=== PATIENT | female | born 1940 | race Caucasian/White ===

== ENCOUNTER 2017-07-15 22:17 | Inpatient (IN) | payer MEDICARE, SELFPAY ==
[2017-07-15 22:18] VITALS: BP 147/89; PULSE 97; RESP 14; TEMP 37.2; O2SAT 93; BMI 26.4
--- NOTE | 2017-07-15 23:00 | CT_ITS ---
STUDY: CT ABDOMEN AND PELVIS WITHOUT CONTRAST REASON FOR EXAM: Female, 77 years old. Abdomen pain, shingles, shortness of breath hypertension RADIATION DOSAGE (If Supplied By Facility): CTDIvol = ( 17.82 ) mGy, DLP = ( 899.46 ) mGycm TECHNIQUE: Transaxial images were obtained from the dome of the diaphragm to the symphysis pubis without oral contrast, and without intravenous contrast. Sagittal and coronal images were reconstructed. Individualized dose optimization techniques were used for this CT. COMPARISON: CT scan abdomen and pelvis June 25, 2014 FINDINGS: There are persistent bilateral [id number] pleural effusions with lower lobe atelectasis. There is severe enlargement of the heart especially the left atrium. Sternotomy wires are seen midline. This is similar to prior study. There is a mildly lobulated enlarged appearance of the liver. There is at least a single 4 mm stone in the left kidney similar to prior study. Normal spleen. Normal pancreas. Normal bilateral adrenal glands. The right kidney is somewhat anteriorly rotated stable since prior study. There are right renal vascular calcifications. There is no evidence of hydronephrosis. Normal left kidney. The stomach is distended. There mildly distended loops of small bowel. There are numerous diverticula present within the colon without evidence of diverticulitis. There is ascites which is protruding into the anterior abdomen at a diastases of the rectus muscle. This is similar to the prior study. There is non-visualization of the appendix. The aorta tortuous and partially calcified. Normal inferior vena cava. Normal retroperitoneum. Normal urinary bladder. There is atrophy of the uterus. There are visualized calcifications involving the gonadal vein. There is a protrusive bulbous appearance of the abdominal wall. This is a result of the ascites extending into diastases of the rectus muscle. There is free fluid in the pelvis and in the abdomen. There is peripheral soft tissue edema and third spacing. The bones are osteopenic and degenerative. CT/Abdomen/Pelvis without Cont IMPRESSION: Severe cardiomegaly persistent moderate bilateral effusions body anasarca ascites and a protrusive appearance of the abdomen with a diastases of the rectus muscle. Atherosclerotic disease of the aorta Diverticulosis no evidence of diverticulitis. There are stable stones involving the right renal pelvis which is thought to likely be vascular rather than part of the ureter. Electronically Signed: Zoila Marquis MD at 23:51 EDT Tel , Service support ,
--- NOTE | 2017-07-15 23:00 | EKG12_ITS ---
Test Reason : SOB Blood Pressure : / mmHG Vent. Rate : 125 BPM Atrial Rate : 119 BPM P-R Int : 000 ms QRS Dur : 104 ms QT Int : 322 ms P-R-T Axes : 000 049 087 degrees QTc Int : 464 ms Accelerated Junctional rhythm with occasional Premature ventricular complexes Low voltage QRS Septal infarct , age undetermined Abnormal ECG Confirmed by SHEKHAR HIGUERA, MANOLO ([id number]), magazine editor MILI MCMAHAN ([id number]) on 07/18/2017 11:28:20 AM Referred By: TANYA Confirmed By:MANOLO CORRIGAN MD
--- NOTE | 2017-07-15 23:05 | ED.DCSUM_ITS ---
- ER Visit Summary Date of Service: 07/15/17 Chief Complaint: Abdominal pain, bloating, shortness of breath History of Present Illness: The patient is a 77 F with abdominal pain, bloating , and shortness of breath. Symptoms started gradually yesterday and were worse today. She has a history of CHF and normally takes Lasix, 40 mg twice a day. She says that she has not been taking it because her kidneys are not working very good. She denies chest pain. Denies cough or fevers. Denies trouble urinating or with bowel movements. Denies vomiting. She has a history of coronary disease, CHF, hypertension, high cholesterol, diabetes, cirrhosis, A. fib, cardiomyopathy, anxiety and depression, and mitral and tricuspid valve replacement. She takes Coumadin. Physical Examination: Vital signs unremarkable. Afebrile. Head and neck atraumatic. Heart irregular. Lungs clear but diminished throughout. Abdomen bloated and distended. Nontender. No guarding rebound. Lower extremities show 1+ peripheral edema symmetric, calves nontender. Skin normal in color. Test Results: EKG, chest x-ray, abdomen CT, labs pending at the time of this dictation. Emergency Department Course and Treatment: Symptoms were concerning for CHF. Patient was placed on a monitor and workup was initiated. Shortly after I saw the patient, staff informed me that the patient was having trouble breathing. Patient was cyanotic and had increased work of breathing. She told me she felt like she was going to stop breathing. Her oxygen saturations were okay, but I was concerned for her anticipated clinical course and so she was intubated. Treated with etomidate and succinylcholine. 7.0 tube passed through cords with direct visualization. Good color change. Equal breath sounds. Good chest rise. Quiet stomach. Patient was placed on the vent. Sedated with propofol. ABG pending. Platelets 468 otherwise CBC normal. CMP unremarkable. INR subtherapeutic at 1.6. BNP 445. Troponin normal. EKG shows a junctional rhythm at a rate of 125. Chest x-ray showed cardiomegaly and large bilateral effusions. CT abdomen showed ascites and anasarca, also with cardiomegaly and bilateral effusions. She also had another noncontributory incidental findings. Please see separate report. Patient treated with Nitropaste and Lasix. Patient is improved on the ventilator. Sedated. ICU and hospitalist contacted for admission. Treatment Plan: Above Disposition: Admission Impression: 1. Acute respiratory failure 2. CHF This note was generated with [employer] dictation software. It may contain incorrect words, spelling, and punctuation that were not noted in review of the chart prior to signing ED Disposition - Plan for ED Patient: Chief Complaint: Abd Pain Referrals: Warren Mendoza MD [Primary Care Provider] -
[2017-07-15 23:12] VITALS: O2SAT 97
--- NOTE | 2017-07-15 23:25 | RAD_ITS ---
STUDY: X-RAY CHEST REASON FOR EXAM: Female, 77 years old. Shortness of breath TECHNIQUE: Single AP portable view of the chest. COMPARISON: Similar 22,016 chest x-ray FINDINGS: There is worsening opacification of the right lung with a large right effusion and atelectasis and/or consolidation. There is worsening of the opacification of the left lower lobe. There is severe cardiomegaly visualized cardiac valvular ring. Sternotomy wires are seen midline. There is an overall pattern of increased interstitial markings. Normal mediastinum and alona. Normal visualized pulmonary arteries. There is atherosclerotic tortuosity of the aortic arch and descending thoracic aorta. There are diffuse degenerative changes of the visualized thoracic spine. Normal visualized ribs, clavicles, and shoulders. There is no demonstrated abnormality of the visualized soft tissue structures of the upper abdomen. RAD/Chest 1 View (Portable) IMPRESSION: Large worsening bilateral effusions atelectasis consider CHF. Cardiomegaly cardiac valvular ring. Electronically Signed: Zoila Marquis MD at 23:59 EDT Tel , Service support ,
[2017-07-15 23:29] LABS: International Normalized Ratio 1.6; Prothrombin Time (Protime)PT. 19.3 SECONDS (11.7-14.9)
[2017-07-15 23:36] LABS: Absolute Lymphocyte Count 0.71 X10^3/ul (0.83-4.51); Absolute Neutrophil Count 6.7 X10^3/uL (2.0-7.7); Basophil# 0.03 X10^3/uL; Basophil% 0.4 % (0-1); Eosinophil# 0.06 X10^3/uL; Eosinophils% 0.7 % (0-5); Hematocrit 44.1 % (37-47); Hemoglobin 14.5 g/dl (12.0-15.0); Lymphocyte # 0.71 X10^3/ul (4.0); Lymphocyte % 8.5 % (19-41); Mean Corp Hgb Conc 32.9 g/gl (32-36); Mean Corpuscular Hgb 31.4 pg (27.0-32.0); Mean Corpuscular Volume 95.5 fL (81-99); Mean Platelet Vol. 9.3 fl (6.2-12.0); Monocyte# 0.82 X10^3/uL; Monocyte% 9.8 % (0-10); Neutrophil # 6.73 X10^3/uL (2.7-7.7); Neutrophil % 80.4 % (47-70); Platelet Count 468 K/mm3 (150-450); RBC Distribution Width SD 50.7 fl (35.1-43.9); Red Blood Count 4.62 M/mm3 (4.2-5.4); White Blood Count 8.4 K/mm3 (4.4-11.0)
[2017-07-15 23:40] VITALS: BP 194/96; PULSE 114
[2017-07-15] MEDS: Nitroglycerin Oint 1 INCH PACKET TRANSDERM. (23:40)
[2017-07-15 23:41] LABS: POSITIVE COUNT NO; POSITIVE DIFFERENTIAL NO; POSITIVE MORPHOLOGY NO
[2017-07-15 23:43] LABS: ALB/GLOB Ratio 0.6 RATIO (0.9-2.4); AST(SGOT) 35 U/L (15-37); Alanine Aminotransfer ALT/SGPT 18 U/L (13-56); Alkaline Phosphatase 58 U/L (45-117); Anion Gap 8 (5-15); BUN 18 mg/dL (7-18); BUN/Creat Ratio 27.4 RATIO (10-20); Chloride 105 mmol/L (98-107); Creatinine, Serum 0.66 mg/dL (0.55-1.02); EST Glomerular Filtration Rate 92 mL/min (>60); Est Glom Filt Rate - Afr Amer 111 mL/min (>60); Estimated Creatinine Clearance 34.42 ml/min; Globulin 3.4 g/dL (2.2-4.2); Glucose 129 mg/dL (74-106); Lipase 304 U/L (73-393); Potassium 4.9 mmol/L (3.5-5.1); Protein, Total 5.4 g/dL (6.4-8.2); Sodium Level 145 mmol/L (136-145)
[2017-07-15 23:45] VITALS: BP 194/122; PULSE 123; RESP 28; O2SAT 96
[2017-07-15 23:48] LABS: BNP,B-Type NATRIURETIC PEPTIDE 445.2 pg/mL (0-100)
[2017-07-15] MEDS: Etomidate 20 MG/10 ML Vial IV (23:57)
[2017-07-15] MEDS: Succinylcholine Chloride 200 MG/10 ML Vial 100 MG IV (23:58)
[2017-07-16] VITALS (52 sets, daily range): BP systolic 102–175; BP diastolic 47–104; PULSE 79–889; RESP 10–18; TEMP 37.2–37.8; O2SAT 97–100; BMI 27.1; BMI 27.2
[2017-07-16] MEDS: Propofol 10MG/Ml 1,000 MG/100 ML Bottle 1.905 MG CONT INF ×3 (00:06→18:25)
--- NOTE | 2017-07-16 00:11 | RAD_ITS ---
STUDY: X-RAY CHEST REASON FOR EXAM: Female, 77 years old. Endotracheal tube orogastric tube placement TECHNIQUE: Single AP portable view of the chest. COMPARISON: July 15, 2017 chest x-ray FINDINGS: An endotracheal tube is present 2.5 cm above the yomaira. An NG tube is present the tip is below the diaphragm in the stomach. Allowing for differences in technique there is some improvement in the aeration of the right lung. There is a hazy appearance of the entire right lung with opacification of the right midlung zone and right lower lobe. There is opacification of the left lower lobe. Sternal cerclage wires are present from a prior sternotomy. There is a visualized cardiac annular ring. Normal mediastinum and alona. Normal visualized pulmonary arteries. There is atherosclerotic calcification of the aortic arch with tortuosity. There are diffuse degenerative changes of the visualized thoracic spine. Normal visualized ribs, clavicles, and shoulders. There is no demonstrated abnormality of the visualized soft tissue structures of the upper abdomen. RAD/Chest 1 View (Portable) IMPRESSION: Status post intubation and NG tube lines in satisfactory position. Persistent bilateral effusions atelectasis. Electronically Signed: Zoila Marquis MD at 1:22 EDT Tel , Service support ,
[2017-07-16] MEDS: Ipratropium/Albuterol Sulfate 3 ML AMPUL.NEB INHALATION (00:15)
--- NOTE | 2017-07-16 00:29 | PCM.HP.STD ---
Problem List (1) Congestive heart failure Status: Chronic Qualifiers: Heart failure type: systolic Heart failure chronicity: chronic Qualified Code(s): I50.22 - Chronic systolic (congestive) heart failure (2) H/O mitral valve replacement with mechanical valve Status: Chronic Comment: on coumadin (3) Cirrhosis Status: Chronic Qualifiers: Hepatic cirrhosis type: unspecified hepatic cirrhosis Ascites presence: with ascites Qualified Code(s): K74.60 - Unspecified cirrhosis of liver (4) Hypertension Status: Chronic Qualifiers: Hypertension type: essential hypertension Qualified Code(s): I10 - Essential (primary) hypertension (5) GERD (gastroesophageal reflux disease) Status: Chronic Qualifiers: Esophagitis presence: esophagitis presence not specified Qualified Code(s): K21.9 - Gastro-esophageal reflux disease without esophagitis (6) Atrial fibrillation Status: Chronic Qualifiers: Atrial fibrillation type: chronic Qualified Code(s): I48.2 - Chronic atrial fibrillation (7) CAD (coronary artery disease) Status: Chronic Qualifiers: Coronary Disease-Associated Artery/Lesion type: unspecified vessel or lesion type Trib[place] vs. transplanted heart: unspecified whether [place] or transplanted heart Associated angina: angina presence unspecified Qualified Code(s): I25.10 - Atherosclerotic heart disease of [place] coronary artery without angina pectoris (8) Diabetes mellitus Status: Chronic Qualifiers: Diabetes mellitus type: type 2 Diabetes mellitus long term care social worker insulin use: without long term care social worker use Diabetes mellitus complication status: with unspecified complications Qualified Code(s): E11.8 - Type 2 diabetes mellitus with unspecified complications (9) Cardiomyopathy Status: Chronic Qualifiers: Cardiomyopathy type: unspecified Qualified Code(s): I42.9 - Cardiomyopathy, unspecified (10) H/O tricuspid valve repair Status: Chronic (11) Hyperlipidemia Status: Chronic Qualifiers: Hyperlipidemia type: unspecified Qualified Code(s): E78.5 - Hyperlipidemia, unspecified (12) Anxiety and depression Status: Chronic History of Present Illness Date of Admission: 07/16/17 Chief Complaint: Abd pain/distention, dyspnea, orthopnea, weight gain, BL LE edema The patient is a 77 y/o F w/ PMHx: 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 [place] Replacement and TV Repair w/ Severe Aortic Stenosis, CKD stage III, GERD, Anxiety and depression who presents to the [facility] ED on 07/16/17 w/ primary complaint of abdominal discomfort, distention and worsening dyspnea with orthopnea with concurrent increased fatigue, weakness with also increased BL LE edema with reported failure to take her lasix on day of presentation. She also has a recent shingles infection on the R face, primarily healed. In the ED work-up included T 98.9, HR 97-->114, BP 147/89, RR14, 93% on RA, CBC w/ WBC 8.4, Hgb 14.5, Plts 468, INR 1.6, glucose 129, BNP 445.2, trop 0.06, CXR with worsening BL effusions, cardiomegaly, cardiac valvular ring, CT A/P w/ severe cardiomegaly persistent with moderate bilateral effusions with body anasarca, ascites and a protrusion appearance of the abdomen with the diastases of the rectus muscle. In the ED patient administered lasix, nitrobid, duoneb. Patient status did not improve and she became cyanotic with increased RR therefore she was intubated w/ administration succ, etomidate and started on propofol drip. Past Medical History Past Medical History (Chronic Problems): Chronic Problems Congestive heart failure (Chronic) H/O mitral valve replacement with mechanical valve (Chronic) on coumadin Cirrhosis (Chronic) Hypertension (Chronic) GERD (gastroesophageal reflux disease) (Chronic) Atrial fibrillation (Chronic) CAD (coronary artery disease) (Chronic) Diabetes mellitus (Chronic) Cardiomyopathy (Chronic) H/O tricuspid valve repair (Chronic) Hyperlipidemia (Chronic) Anxiety and depression (Chronic) Allergies cortisone Allergy (Verified 07/15/17 22:23) Unknown Home Medications: Ambulatory Orders Medication Instructions Recorded Nitroglycerin [Nitrostat] 0.4 mg SUBLINGUAL Q5M PRN #25 03/28/16 tablet Potassium Chloride [K-Dur] 20 meq PO BIDCM #60 tablet 03/28/16 furosemide 40 mg tablet 80 mg PO BID #120 tab 06/12/17 Warfarin [Coumadin] 3 mg PO DAILY 07/15/17 Surgical History: - - MV Mechanical Valve [place], TV Repair, CABG, Appendectomy. 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 Denies: Chills, Fever, Weight Change HEENT: Denies: Head Aches, Sinus Congestion, Sinus Drainage Cardiovascular: Reports: Edema, Orthopnea. Denies: Chest Pain, Palpitations Respiratory: Reports: Shortness of Breath, Shortness of breath at rest, Shortness of breath upon exertion. Denies: Cough, Sputum production Gastrointestinal: Denies: Abdominal Pain, Nausea, Vomiting Genitourinary: Denies: Dysuria Musculoskeletal: Denies: Joint Pain, Joint Tenderness Skin: Reports: Skin Changes. Denies: Rash, Wounds Neurological: Denies: Numbness, Tingling, Focal weakness Psychiatric: Denies: Anxiety, Depression, Homicidal Ideations, Suicidal Ideations Hematologic/ Lymphatic: Reports: Anemia, Easy Bruising, Easy Bleeding VTE Information - Inpt Only VTE Present on Admission: No VTE Mechan Device Prophylaxis: SCD's VTE Pharm Prophylaxis ordered?: No Reason prophylaxis not ordered:: Treatment Not Indicated Subjective: Laying in the ED bed, cachetic appearing, dried facial R sided lesions s/p shingles, ill appearing, intubated now. Objective: Physical Examination: General: intubated, sedated, intermittent fighting vent, unable to discussion orientation, laying in the ED bed, cachetic appearing. Skin: normal color, turgor, no icterus, cyanosis except R face recent shingles with healed lesions, chronic venous stasis BL LE changes. HEENT: AT/NC, EOMI, PERRLA, dry MM, see skin, no carotid bruits, + notable JVD noted. Lungs: Severely coarse BL, crackles, > bases, intubated, symmetric rise, no wheezing. Heart: Tachycardic; no gallop, rub audible, s/p MVR. Abdomen: soft, NTTP, distended, hypoactive BS, difficult to assess with distention and ascites, + HM. Extremities: no cyanosis, clubbing, BL LE 1+ ankle to proximal kaur, chronic venous stasis skin changes. Neurological: intubated, sedated, intermittent fighting vent, unable to discussion orientation, laying in the ED bed, cachetic appearing, unable to assess CN, strength deferred given sedation, intubated status. Psychiatric: affect appears sedate, flat, no acute evidence of depressive or anxiety feelings. - Physical Exam Vital Signs Temp Pulse Resp BP Pulse Ox 98.9 F 114 H 14 194/96 H 97 07/15/17 22:18 07/15/17 23:40 07/15/17 22:18 07/15/17 23:40 07/15/17 23:12 Oxygen Flow Rate (L/min) 2 Oxygen Delivery Method Nasal Cannula Weight: 140 lb Body Mass Index (BMI) 26.4 Laboratory Tests Past 24 Hrs 07/15/17 07/15/17 07/15/17 23:11 23:11 23:11 WBC 8.4 RBC 4.62 Hgb 14.5 Hct 44.1 MCV 95.5 MCH 31.4 MCHC 32.9 RDW 15.0 H RDW Differential 50.7 H Plt Count 468 H MPV 9.3 Immature Gran % (Auto) 0.200 Neut % (Auto) 80.4 H Lymph % (Auto) 8.5 L [place] % (Auto) 9.8 Eos % (Auto) 0.7 Baso % (Auto) 0.4 Absolute Neuts (auto) 6.7 Absolute Lymphs (auto) 0.71 L Total Counted Not Reportable PT 19.3 H INR 1.6 Sodium 145 Potassium 4.9 Chloride 105 Carbon Dioxide 32.0 Anion Gap 8 BUN 18 Creatinine 0.66 Estim Creat Clear Calc 34.42 Est GFR (MDRD) Af Amer 111 Est GFR (MDRD) Non-Af 92 BUN/Creatinine Ratio 27.4 H Glucose 129 H Calcium 8.0 L Total Bilirubin 0.70 AST 35 ALT 18 Alkaline Phosphatase 58 Troponin I 0.06 B-Natriuretic Peptide Total Protein 5.4 L Albumin 2.0 L Globulin 3.4 Albumin/Globulin Ratio 0.6 L Lipase 304 07/15/17 23:11 WBC RBC Hgb Hct MCV MCH MCHC RDW RDW Differential Plt Count MPV Immature Gran % (Auto) Neut % (Auto) Lymph % (Auto) [place] % (Auto) Eos % (Auto) Baso % (Auto) Absolute Neuts (auto) Absolute Lymphs (auto) Total Counted PT INR Sodium Potassium Chloride Carbon Dioxide Anion Gap BUN Creatinine Estim Creat Clear Calc Est GFR (MDRD) Af Amer Est GFR (MDRD) Non-Af BUN/Creatinine Ratio Glucose Calcium Total Bilirubin AST ALT Alkaline Phosphatase Troponin I B-Natriuretic Peptide 445.2 H Total Protein Albumin Globulin Albumin/Globulin Ratio Lipase Assessment/Plan The patient is a 77 y/o F w/ PMHx: 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 [place] Replacement and TV Repair w/ Severe Aortic Stenosis, CKD stage III, GERD, Anxiety and depression who presents to the [facility] ED on 07/16/17 w/ primary complaint of abdominal discomfort, distention and worsening dyspnea with orthopnea with concurrent increased fatigue, weakness with also increased BL LE edema with reported failure to take her lasix on day of presentation. She also has a recent shingles infection on the R face, primarily healed. (1) Acute Hypoxic and Hypercarbic Respiratory Failure secondary to Acute Decompensated Systolic CHF: In the ED work-up included T 98.9, HR 97-->114, BP 147/89, RR14, 93% on RA, CBC w/ WBC 8.4, Hgb 14.5, Plts 468, INR 1.6, glucose 129, BNP 445.2, trop 0.06, CXR with worsening BL effusions, cardiomegaly, cardiac valvular ring, CT A/P w/ severe cardiomegaly persistent with moderate bilateral effusions with body anasarca, ascites and a protrusion appearance of the abdomen with the diastases of the rectus muscle. In the ED patient administered lasix, nitrobid, duoneb. Patient status did not improve and she became cyanotic with increased RR therefore she was intubated w/ administration succ, etomidate and started on propofol drip. Will admit to the ICU, maintain intubated status, obtain cardiac enzyme series, obtain serial EKGs, continue IV lasix diuresis w/ lasix drip initiation, monitor I/Os, continue medical therapy w/ coumadin w/ INR trending, subtherapeutic upon presentation, given notably elevated BP now in the ED will initiate NG drip, not on statin, BB, or ACEI, given acute presentation will hold on addition, obtain ECHO. Obtain TSH and magnesium level. Cardiology consulted, pending. PRN morphine to decrease afterload, continue oxygen supplementation, if necessary will position w/ upright position with legs off bed to decrease preload. ICU physician consulted given ICU admission, intubated status. (2) Valvular heart disease: s/p MV mechanical [place] valve replacement and TV repair w/ severe aortic stenosis, ECHO pending as noted. (3) CAD: s/p CABG, follows w/ Dr. Harrison. Will continue regimen coumadin, not on statin or BB therapy. Add once improved status. (4) Chronic atrial fibrillation: Will maintain on telemetry, obtain magnesium level, obtain ECHO, obtain TSH level, continue coumadin with INR trending. (5) Hypertension: Elevated BP, NG drip as noted, no on ACEI, BB. Continue IV lasix drip. Add regimen once appropriate, PRN hydralazine. (6) Hyperlipidemia: AM FLP, not on statin. (7) History of Cirrhosis/PEREYRA: Complicates #1, will also obtain [place] level. LFTs, bilirubin levels normal upon admission. (8) GERD: Famotidine. (9) ? Diabetes mellitus type II: Not on regimen, no recent HgBA1c but noted in history, will obtain HgbA1c, admission glucose 129, accu checks and ISS in the interim. (10) CKD stage III: Admission BUN/Cr 18/0.66, CrCl 34.42, trend given lasix usage. (11) Severe Protein-Calorie Malnutrition: Evidenced per habitus, muscle and fat loss, nutrition consulted. (12) Recent Facial Shingles: Healing, scabs present, R face. (13) DVT Prophylaxis: SCDs, coumadin w/ INR trending. (14) CODE status: Discussed CODE status at length including difference between FULL code, DNR-CCA and DNR-CC status. Following discussions about the differences in these status, requested despite presentation and underlying co-morbidities, FULL CODE status. DNR-CCA, no intubation status. Advanced Care Planning Face to Face Time: 17 minutes. Critical Care Time: 70 minutes, time from 00:20-1:30 am, were spent addressing patients acute hypoxic and hypercarbic respiratory failure, sedation, ventilation, CHF exacerbation care and treatment, review of all data in addition to discussion with family. Code Visit Procedures: [id number] Critial Care 1st Hr - [place] and [id number]
[2017-07-16] MEDS: Furosemide 100 MG/10 ML Vial 80 MG IV (00:30)
[2017-07-16 00:41] LABS: Base Excess 8 mmol/L (-2 to +2); Bicarbonate 32.4 mmol/L (22-26); Blood Gas Specimen Type ART; FI02 100; Mode A-C; O2 Delivery Device Vent; PEEP 5; PO2 324 mmHG (75-100); RR 14; SITE R Radial; SO2 100 % (95-99); Time Given 35; Total Carbon Dioxide 34 mmol/L; Vt 400; pCO2 50.1 mmHg (35-45); pH 7.42 (7.35-7.45)
--- NOTE | 2017-07-16 00:46 | HP.PCM_ITS ---
Problem List (1) Congestive heart failure Status: Chronic Qualifiers: Heart failure type: systolic Heart failure chronicity: chronic Qualified Code(s): I50.22 - Chronic systolic (congestive) heart failure (2) H/O mitral valve replacement with mechanical valve Status: Chronic Comment: on coumadin (3) Cirrhosis Status: Chronic Qualifiers: Hepatic cirrhosis type: unspecified hepatic cirrhosis Ascites presence: with ascites Qualified Code(s): K74.60 - Unspecified cirrhosis of liver (4) Hypertension Status: Chronic Qualifiers: Hypertension type: essential hypertension Qualified Code(s): I10 - Essential (primary) hypertension (5) GERD (gastroesophageal reflux disease) Status: Chronic Qualifiers: Esophagitis presence: esophagitis presence not specified Qualified Code(s) : K21.9 - Gastro-esophageal reflux disease without esophagitis (6) Atrial fibrillation Status: Chronic Qualifiers: Atrial fibrillation type: chronic Qualified Code(s): I48.2 - Chronic atrial fibrillation (7) CAD (coronary artery disease) Status: Chronic Qualifiers: Coronary Disease-Associated Artery/Lesion type: unspecified vessel or lesion type [place] vs. transplanted heart: unspecified whether [place] or transplanted heart Associated angina: angina presence unspecified Qualified Code(s): I25.10 - Atherosclerotic heart disease of [place] coronary artery without angina pectoris (8) Diabetes mellitus Status: Chronic Qualifiers: Diabetes mellitus type: type 2 Diabetes mellitus [facility] insulin use: without [facility] use Diabetes mellitus complication status: with unspecified complications Qualified Code(s): E11.8 - Type 2 diabetes mellitus with unspecified complications (9) Cardiomyopathy Status: Chronic Qualifiers: Cardiomyopathy type: unspecified Qualified Code(s): I42.9 - Cardiomyopathy , unspecified (10) H/O tricuspid valve repair Status: Chronic (11) Hyperlipidemia Status: Chronic Qualifiers: Hyperlipidemia type: unspecified Qualified Code(s): E78.5 - Hyperlipidemia , unspecified (12) Anxiety and depression Status: Chronic History of Present Illness Date of Admission: 07/16/17 Chief Complaint: Abd pain/distention, dyspnea, orthopnea, weight gain, BL LE edema The patient is a 77 y/o F w/ PMHx: 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 [place] Replacement and TV Repair w/ Severe Aortic Stenosis, CKD stage III, GERD, Anxiety and depression who presents to the [facility] ED on 07/16/17 w/ primary complaint of abdominal discomfort, distention and worsening dyspnea with orthopnea with concurrent increased fatigue, weakness with also increased BL LE edema with reported failure to take her lasix on day of presentation. She also has a recent shingles infection on the R face, primarily healed. In the ED work- up included T 98.9, HR 97-->114, BP 147/89, RR14, 93% on RA, CBC w/ WBC 8.4, Hgb 14.5, Plts 468, INR 1.6, glucose 129, BNP 445.2, trop 0.06, CXR with worsening BL effusions, cardiomegaly, cardiac valvular ring, CT A/P w/ severe cardiomegaly persistent with moderate bilateral effusions with body anasarca, ascites and a protrusion appearance of the abdomen with the diastases of the rectus muscle. In the ED patient administered lasix, nitrobid, duoneb. Patient status did not improve and she became cyanotic with increased RR therefore she was intubated w/ administration succ, etomidate and started on propofol drip. Past Medical History Past Medical History (Chronic Problems): Chronic Problems Congestive heart failure (Chronic) H/O mitral valve replacement with mechanical valve (Chronic) on coumadin Cirrhosis (Chronic) Hypertension (Chronic) GERD (gastroesophageal reflux disease) (Chronic) Atrial fibrillation (Chronic) CAD (coronary artery disease) (Chronic) Diabetes mellitus (Chronic) Cardiomyopathy (Chronic) H/O tricuspid valve repair (Chronic) Hyperlipidemia (Chronic) Anxiety and depression (Chronic) Allergies cortisone Allergy (Verified 07/15/17 22:23) Unknown Home Medications: Ambulatory Orders Medication Instructions Recorded Nitroglycerin [Nitrostat] 0.4 mg SUBLINGUAL Q5M PRN #25 03/28/16 tablet Potassium Chloride [K-Dur] 20 meq PO BIDCM #60 tablet 03/28/16 furosemide 40 mg tablet 80 mg PO BID #120 tab 06/12/17 Warfarin [Coumadin] 3 mg PO DAILY 07/15/17 Surgical History: - - MV Mechanical Valve [place], TV Repair, CABG, Appendectomy. 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 Denies: Chills, Fever, Weight Change HEENT: Denies: Head Aches, Sinus Congestion, Sinus Drainage Cardiovascular: Reports: Edema, Orthopnea. Denies: Chest Pain, Palpitations Respiratory: Reports: Shortness of Breath, Shortness of breath at rest, Shortness of breath upon exertion. Denies: Cough, Sputum production Gastrointestinal: Denies: Abdominal Pain, Nausea, Vomiting Genitourinary: Denies: Dysuria Musculoskeletal: Denies: Joint Pain, Joint Tenderness Skin: Reports: Skin Changes. Denies: Rash, Wounds Neurological: Denies: Numbness, Tingling, Focal weakness Psychiatric: Denies: Anxiety, Depression, Homicidal Ideations, Suicidal Ideations Hematologic/ Lymphatic: Reports: Anemia, Easy Bruising, Easy Bleeding VTE Information - Inpt Only VTE Present on Admission: No VTE Mechan Device Prophylaxis: SCD's VTE Pharm Prophylaxis ordered?: No Reason prophylaxis not ordered:: Treatment Not Indicated Subjective: Laying in the ED bed, cachetic appearing, dried facial R sided lesions s/p shingles, ill appearing, intubated now. Objective: Physical Examination: General: intubated, sedated, intermittent fighting vent, unable to discussion orientation, laying in the ED bed, cachetic appearing. Skin: normal color, turgor, no icterus, cyanosis except R face recent shingles with healed lesions, chronic venous stasis BL LE changes. HEENT: AT/NC, EOMI, PERRLA, dry MM, see skin, no carotid bruits, + notable JVD noted. Lungs: Severely coarse BL, crackles, > bases, intubated, symmetric rise, no wheezing. Heart: Tachycardic; no gallop, rub audible, s/p MVR. Abdomen: soft, NTTP, distended, hypoactive BS, difficult to assess with distention and ascites, + HM. Extremities: no cyanosis, clubbing, BL LE 1+ ankle to proximal kaur, chronic venous stasis skin changes. Neurological: intubated, sedated, intermittent fighting vent, unable to discussion orientation, laying in the ED bed, cachetic appearing, unable to assess CN, strength deferred given sedation, intubated status. Psychiatric: affect appears sedate, flat, no acute evidence of depressive or anxiety feelings. - Physical Exam Vital Signs Temp Pulse Resp BP Pulse Ox 98.9 F 114 H 14 194/96 H 97 07/15/17 22:18 07/15/17 23:40 07/15/17 22:18 07/15/17 23:40 07/15/17 23:12 Oxygen Flow Rate (L/min) 2 Oxygen Delivery Method Nasal Cannula Weight: 140 lb Body Mass Index (BMI) 26.4 Laboratory Tests Past 24 Hrs 07/15/17 07/15/17 07/15/17 23:11 23:11 23:11 WBC 8.4 RBC 4.62 Hgb 14.5 Hct 44.1 MCV 95.5 MCH 31.4 MCHC 32.9 RDW 15.0 H RDW Differential 50.7 H Plt Count 468 H MPV 9.3 Immature Gran % (Auto) 0.200 Neut % (Auto) 80.4 H Lymph % (Auto) 8.5 L [place] % (Auto) 9.8 Eos % (Auto) 0.7 Baso % (Auto) 0.4 Absolute Neuts (auto) 6.7 Absolute Lymphs (auto) 0.71 L Total Counted Not Reportable PT 19.3 H INR 1.6 Sodium 145 Potassium 4.9 Chloride 105 Carbon Dioxide 32.0 Anion Gap 8 BUN 18 Creatinine 0.66 Estim Creat Clear Calc 34.42 Est GFR (MDRD) Af Amer 111 Est GFR (MDRD) Non-Af 92 BUN/Creatinine Ratio 27.4 H Glucose 129 H Calcium 8.0 L Total Bilirubin 0.70 AST 35 ALT 18 Alkaline Phosphatase 58 Troponin I 0.06 B-Natriuretic Peptide Total Protein 5.4 L Albumin 2.0 L Globulin 3.4 Albumin/Globulin Ratio 0.6 L Lipase 304 07/15/17 23:11 WBC RBC Hgb Hct MCV MCH MCHC RDW RDW Differential Plt Count MPV Immature Gran % (Auto) Neut % (Auto) Lymph % (Auto) Caswell % (Auto) Eos % (Auto) Baso % (Auto) Absolute Neuts (auto) Absolute Lymphs (auto) Total Counted PT INR Sodium Potassium Chloride Carbon Dioxide Anion Gap BUN Creatinine Estim Creat Clear Calc Est GFR (MDRD) Af Amer Est GFR (MDRD) Non-Af BUN/Creatinine Ratio Glucose Calcium Total Bilirubin AST ALT Alkaline Phosphatase Troponin I B-Natriuretic Peptide 445.2 H Total Protein Albumin Globulin Albumin/Globulin Ratio Lipase Assessment/Plan The patient is a 77 y/o F w/ PMHx: CVA without deficits, Chronic Systolic CHF w / Non-ischemic Cardiomyopathy, Chronic Atrial fibrillation, Hypertension, Hyperlipidemia, Unclear Cirrhosis/?PEREYRA, CAD s/p CABG and MV Mechanical [place] [place] Replacement and TV Repair w/ Severe Aortic Stenosis, CKD stage III, GERD, Anxiety and depression who presents to the [facility] ED on 07/16/17 w/ primary complaint of abdominal discomfort, distention and worsening dyspnea with orthopnea with concurrent increased fatigue, weakness with also increased BL LE edema with reported failure to take her lasix on day of presentation. She also has a recent shingles infection on the R face, primarily healed. (1) Acute Hypoxic and Hypercarbic Respiratory Failure secondary to Acute Decompensated Systolic CHF: In the ED work-up included T 98.9, HR 97-->114, BP 147/89, RR14, 93% on RA, CBC w/ WBC 8.4, Hgb 14.5, Plts 468, INR 1.6, glucose 129, BNP 445.2, trop 0.06, CXR with worsening BL effusions, cardiomegaly, cardiac valvular ring, CT A/P w/ severe cardiomegaly persistent with moderate bilateral effusions with body anasarca, ascites and a protrusion appearance of the abdomen with the diastases of the rectus muscle. In the ED patient administered lasix, nitrobid, duoneb. Patient status did not improve and she became cyanotic with increased RR therefore she was intubated w/ administration succ, etomidate and started on propofol drip. Will admit to the ICU, maintain intubated status, obtain cardiac enzyme series, obtain serial EKGs, continue IV lasix diuresis w/ lasix drip initiation, monitor I/Os, continue medical therapy w/ coumadin w/ INR trending, subtherapeutic upon presentation, given notably elevated BP now in the ED will initiate NG drip, not on statin, BB, or ACEI, given acute presentation will hold on addition, obtain ECHO. Obtain TSH and magnesium level. Cardiology consulted, pending. PRN morphine to decrease afterload, continue oxygen supplementation, if necessary will position w/ upright position with legs off bed to decrease preload. ICU physician consulted given ICU admission, intubated status. (2) Valvular heart disease: s/p MV mechanical [place] valve replacement and TV repair w/ severe aortic stenosis, ECHO pending as noted. (3) CAD: s/p CABG, follows w/ Dr. Harrison. Will continue regimen coumadin, not on statin or BB therapy. Add once improved status. (4) Chronic atrial fibrillation: Will maintain on telemetry, obtain magnesium level, obtain ECHO, obtain TSH level, continue coumadin with INR trending. (5) Hypertension: Elevated BP, NG drip as noted, no on ACEI, BB. Continue IV lasix drip. Add regimen once appropriate, PRN hydralazine. (6) Hyperlipidemia: AM FLP, not on statin. (7) History of Cirrhosis/PEREYRA: Complicates #1, will also obtain NH level. LFTs, bilirubin levels normal upon admission. (8) GERD: Famotidine. (9) ? Diabetes mellitus type II: Not on regimen, no recent HgBA1c but noted in history, will obtain HgbA1c, admission glucose 129, accu checks and ISS in the interim. (10) CKD stage III: Admission BUN/Cr 18/0.66, CrCl 34.42, trend given lasix usage. (11) Severe Protein-Calorie Malnutrition: Evidenced per habitus, muscle and fat loss, nutrition consulted. (12) Recent Facial Shingles: Healing, scabs present, R face. (13) DVT Prophylaxis: SCDs, coumadin w/ INR trending. (14) CODE status: Discussed CODE status at length including difference between FULL code, DNR-CCA and DNR-CC status. Following discussions about the differences in these status, requested despite presentation and underlying co- morbidities, FULL CODE status. DNR-CCA, no intubation status. Advanced Care Planning Face to Face Time: 17 minutes. Critical Care Time: 70 minutes, time from 00:20-1:30 am, were spent addressing patients acute hypoxic and hypercarbic respiratory failure, sedation, ventilation, CHF exacerbation care and treatment, review of all data in addition to discussion with family. Code Visit Procedures: [id number] Critial Care 1st Hr - [place] and [id number]
[2017-07-16 02:20] LABS: Magnesium 2.5 mg/dL (1.6-2.6); Phosphorus 3.1 mg/dL (2.5-4.9); Thyroid Stim Hormone (TSH) 7.36 uIU/mL (0.358-3.74)
[2017-07-16] MEDS: 0.9% NaCl Peripheral Flush Adult/Peds IV ×7 (02:49→23:04)
[2017-07-16] MEDS: Albuterol 2.5 MG/3 ML VIAL.NEB. INHALATION ×6 (03:30→22:28)
[2017-07-16 03:46] LABS: M R Staph aureus DNA By PCR Negative (Negative); Probe Check PASS; Specimen Processing Control PASS
[2017-07-16] MEDS: CHLORHEXIDINE GLUC 2% CLOTH 1 EACH TOWELETTE TOPICAL (04:28)
[2017-07-16 05:01] LABS: Allen Test POS; Base Excess 10 mmol/L (-2 to +2); Bicarbonate 31.5 mmol/L (22-26); Blood Gas Specimen Type ART; FI02 60; Mode A-C; O2 Delivery Device Vent; PEEP 5; PO2 103 mmHG (75-100); RR 16; SITE L Radial; SO2 99 % (95-99); Time Given 450; Total Carbon Dioxide 32 mmol/L; Vt 400; pCO2 32.5 mmHg (35-45); pH 7.59 (7.35-7.45)
--- NOTE | 2017-07-16 05:55 | RAD_ITS ---
STUDY: X-RAY CHEST REASON FOR EXAM: Female, 77 years old. Intubated. TECHNIQUE: AP portable chest. COMPARISON: July 16, 2017 12:25 AM. July 15, 2017. FINDINGS: Endotracheal tube tip 1.5 cm above the yomaira. Nasogastric tube tip below the left hemidiaphragm. Small bilateral pleural effusions unchanged. Perihilar airspace opacity compatible with vascular congestion not significantly changed. No pneumothorax. Mild to moderate cardiomegaly unchanged. Mitral valvuloplasty. Normal mediastinum and alona. Normal visualized pulmonary arteries. Normal visualized aortic arch and descending thoracic aorta. Wires are present. Normal visualized thoracic spine. Normal visualized ribs, clavicles, and shoulders. There is no demonstrated abnormality of the visualized soft tissue structures of the upper abdomen. RAD/Chest 1 View (Portable) IMPRESSION: Consider congestive heart failure unchanged. Support lines and tubes in their expected locations. Endotracheal tube tip 1.5 cm above the yomaira with the chin down. Electronically Signed: Frederick Suarez MD at 5:18 EDT , Service support ,
--- NOTE | 2017-07-16 05:55 | EKG12_ITS ---
Test Reason : AM EKG Blood Pressure : / mmHG Vent. Rate : 083 BPM Atrial Rate : 078 BPM P-R Int : 000 ms QRS Dur : 126 ms QT Int : 420 ms P-R-T Axes : 000 013 135 degrees QTc Int : 493 ms Atrial fibrillation Non-specific intra-ventricular conduction block Abnormal ECG When compared with ECG of 26-MAR-2016 05:35, Wide QRS rhythm has replaced Atrial fibrillation Confirmed by SHEKHAR HIGUERA, MANOLO ([id number]), restaurant expeditor MILI MCMAHAN ([id number]) on 07/18/2017 12:50:33 PM Referred By: SHILPA Confirmed By:MANOLO CORRIGAN MD
--- NOTE | 2017-07-16 05:55 | ECHOD_ITS ---
Reason For Study: CHF Procedure This was a 2D Doppler, Color Flow transthoracic echocardiogram. Exam performed portable in ICU/CCU. Left Ventricle Severely dilated left ventricle. The estimated ejection fraction is 10-15 %. There is severe global hypokinesis of the left ventricle. Right Ventricle Normal size and thickness. Normal systolic function. Atria The left atrium is severely enlarged. The right atrium is severely enlarged. Normal atrial septum. Mitral Valve Peak transmitral valve gradient 14 mmHg. Mean transmitral valve gradient 5 mmHg. Trivial mitral valve insufficiency. Stable appearing mechanical mitral valve apparatus. Tricuspid Valve Normal tricuspid valve. Mild (1+) tricuspid valve insufficiency. Right ventricular systolic pressure estimated to be 43 mmHg. Moderate pulmonary hypertension. Aortic Valve Trisinus/trileaflet aortic valve. Mild diffuse aortic valve thickening. There is no aortic stenosis. Pulmonic Valve Normal pulmonic valve. Mild (1+) pulmonic valve insufficiency. Great Vessels Normal aortic root. Mild atherosclerosis of the aortic arch. The inferior vena cava is dilated. No collapse of the inferior vena cava. Pericardium/Pleural No pericardial effusion. Moderate size left pleural effusion. MMode/2D Measurements & Calculations LVIDd: 5.4 cm IVSd: 1.0 cm LVOT diam: 1.8 cm LVIDs: 4.8 cm LVPWd: 0.91 cm LVOT area: 2.5 cm2 RVDd: 2.6 cm FS: 10.9 % Ao root diam: 2.6 cm LAV(MOD-bp): 265.0 ml EDV(MOD-sp4): 114.8 ml LA dimension: 6.8 cm LAV(MOD-bp) Indexed: 161.8 ml/m2 ESV(MOD-sp4): 83.0 ml LAV(MOD-sp2): 283.8 ml EF(MOD-sp4): 27.7 % LAV(MOD-sp4): 241.3 ml SV(MOD-sp4): 31.7 ml LA A4 area: 52.8 cm2 RA A4 area: 31.8 cm2 Doppler Measurements & Calculations MV E max dara: 169.9 cm/sec MV V2 max: 185.1 cm/sec Ao V2 max: 237.6 cm/sec MV max P.8 mmHg Ao max P.8 mmHg MV V2 mean: 100.3 cm/sec Ao V2 mean: 170.1 cm/sec MV mean P.8 mmHg Ao mean P.8 mmHg MV V2 VTI: 31.8 cm Ao V2 VTI: 43.9 cm MVA(VTI): 1.8 cm2 RONALDO(I,D): 1.3 cm2 RONALDO(V,D): 1.5 cm2 LV V1 max: 143.2 cm/sec SV(LVOT): 57.9 ml PA V2 max: 141.0 cm/sec LV V1 max P.2 mmHg LV V1 mean P.7 mmHg LV V1 mean: 101.8 cm/sec LV V1 VTI: 23.6 cm TR max dara: 267.9 cm/sec TR max P.8 mmHg Interpretation Summary Severely dilated left ventricle. The estimated ejection fraction is 10-15 %. There is severe global hypokinesis of the left ventricle. The left atrium is severely enlarged. Stable appearing mechanical mitral valve apparatus. Mild (1+) tricuspid valve insufficiency. Right ventricular systolic pressure estimated to be 43 mmHg. Moderate pulmonary hypertension. There is no aortic stenosis. Moderate size loculated left pleural effusion. Compared to echo report dated 03/25/2016, no appreciable changes noted. Aortic gradients are most likely due to low output state; physical appearance of aortic valve does not appear to demonstrate severe aortic stenosis. Ordering Physician: Genesis Casas Referring Physician: Jeremy Mendoza Performed By: Dorota Braswell, CYNTHIA, RVT
[2017-07-16 06:10] LABS: Bedside Glucose 145 mg/dL (70-110)
--- NOTE | 2017-07-16 06:35 | CON.PCM_ITS ---
Reason for Consult Date of Consultation: 07/16/17 Reason for Consultation: Acute respiratory failure History of Present Illness: The patient is a 77-year-old female, with a history as outlined below, who presented to the emergency department on July 15 with complaints of increased abdominal girth and pain, along with worsening shortness of breath. The patient has a history significant for prior CVA without residual deficits, PEREYRA Cirrhosis, chronic systolic heart failure, status post mitral and tricuspid valve repair, severe aortic stenosis and chronic atrial fibrillation. History pertinent to her hospitalization was obtained primarily via chart review, the patient is currently intubated and sedated. The patient reportedly stopped taking her Lasix recently over concerns for her renal function. Surface echocardiogram from March 2016 revealed moderately severe global LV systolic dysfunction with an ejection fraction of 30%. Right ventricular systolic pressure was estimated to be 45 mmHg. There is also note of moderate to severe aortic valve stenosis. The patient's family states that she does not have a primary care provider and does not follow with anyone routinely for her underlying cirrhosis. On presentation to the emergency department, the patient was noted to be afebrile and hemodynamically stable. She was initially maintaining appropriate oxygen saturations on 2 L/min via nasal cannula. However, emergency department staff reported that the patient had increased work of breathing and was cyanotic in appearance, which eventually led to her intubation. Laboratory evaluation revealed no evidence for leukocytosis. INR was noted to be 1.6. Chemistry profile was largely unrevealing. BNP was elevated to 445. Initial troponin was negative, but has since climbed to 0.13. CT abdomen/pelvis revealed moderate bilateral pleural effusions, anasarca diverticulosis without evidence of inflammation. Plain film chest x-ray revealed pulmonary edema and large bilateral pleural effusions. The patient was started on both nitro and Lasix drips. She was subsequently admitted to the medical intensive care unit for ongoing management. Past Medical History Past Medical History (Chronic Problems): Chronic Problems Congestive heart failure (Chronic) H/O mitral valve replacement with mechanical valve (Chronic) on coumadin Cirrhosis (Chronic) Hypertension (Chronic) GERD (gastroesophageal reflux disease) (Chronic) Atrial fibrillation (Chronic) CAD (coronary artery disease) (Chronic) Diabetes mellitus (Chronic) Cardiomyopathy (Chronic) H/O tricuspid valve repair (Chronic) Hyperlipidemia (Chronic) Anxiety and depression (Chronic) Allergies cortisone Allergy (Verified 07/15/17 22:23) Unknown Home Medications: Ambulatory Orders Medication Instructions Recorded Nitroglycerin [Nitrostat] 0.4 mg SUBLINGUAL Q5M PRN #25 03/28/16 tablet Potassium Chloride [K-Dur] 20 meq PO BIDCM #60 tablet 03/28/16 furosemide 40 mg tablet 80 mg PO BID #120 tab 06/12/17 Warfarin [Coumadin] 3 mg PO DAILY 07/15/17 Surgical History: - - MV Mechanical Valve [facility], TV Repair, CABG, Appendectomy. 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 - Physical Exam General: - - Intubated, sedated and mechanically ventilated. HEENT: Atraumatic, PERRLA, Normocephalic Oral: No Gingival or Mucosal Lesions/ Ulcerations, - - Endotracheal and OG tubes in place Neck: Supple, No Nodes, Trachea Midline, JVD, Bilateral Lungs: Diminished, Rales Cardiovascular: Normal S1, Normal S2, Irregular Rate, Murmur, No rub noted, No Gallop Abdomen: Soft, Hypoactive Bowel Sounds, Distended, - - +Ascites Extremities: No clubbing, No cyanosis, - - Extensive bilateral lower extremity pitting edema Skin: - - Wound and sloughing skin over right frontal region Musculoskeletal: Arthritic Changes, Cachexia, Muscle Wasting, - - Temporal wasting present Lymphatic: No Cervical, Supraclavicular, or Inguinal Adenopathy Neurological: - - No focal deficits. Moves all extremities spontaneously. Vital Signs Temp Pulse Resp BP Pulse Ox 98.9 F 92 12 109/62 100 07/16/17 04:00 07/16/17 06:00 07/16/17 06:00 07/16/17 06:00 07/16/17 06:00 Oxygen Delivery Method Mechanical Ventilator Weight: 143 lb 15.39 oz Body Mass Index (BMI) 27.1 Intake and Output for Last 24 Hours 07/14/17 07/15/17 07/16/17 23:59 23:59 23:59 Intake Total 149.7 / 149.7 Output Total 350 / 350 Balance -200.3 / -200.3 Laboratory Tests Past 24 Hrs 07/16/17 07/16/17 07/16/17 01:40 02:50 04:55 WBC RBC Hgb Hct MCV MCH MCHC RDW RDW Differential Plt Count Neut % (Auto) Absolute Neuts (auto) Total Counted PT INR Specimen Type ART Sample Site L Radial pH 7.59 H Bicarbonate Actual 31.5 H POC Total CO2 32 Base Excess 10 H O2 Saturation 99 O2 % 60 ABG pCO2 32.5 L ABG pO2 103 H Leonel Test POS Respiration Rate 16 O2 Delivery Device Vent Minute Volume 6.00 Vent Mode A-C Tidal Volume 400 POC PEEP 5 Blood Gas Notified Whom [facility] Blood Gas Notified Time 450 Sodium Potassium Chloride Carbon Dioxide Anion Gap BUN Creatinine Est GFR (MDRD) Af Amer Est GFR (MDRD) Non-Af BUN/Creatinine Ratio Glucose Calcium Total Bilirubin AST ALT Alkaline Phosphatase Troponin I 0.09 H Total Protein Albumin Triglycerides Cholesterol LDL Cholesterol VLDL Cholesterol HDL Cholesterol MRSA (PCR) Negative 07/16/17 07/16/17 07/16/17 06:10 06:10 06:10 WBC Pending RBC Pending Hgb Pending Hct Pending MCV Pending MCH Pending MCHC Pending RDW Pending RDW Differential Pending Plt Count Pending Neut % (Auto) Pending Absolute Neuts (auto) Pending Total Counted Pending PT Pending INR Pending Specimen Type Sample Site pH Bicarbonate Actual POC Total CO2 Base Excess O2 Saturation O2 % ABG pCO2 ABG pO2 Leonel Test Respiration Rate O2 Delivery Device Minute Volume Vent Mode Tidal Volume POC PEEP Blood Gas Notified Whom Blood Gas Notified Time Sodium Pending Potassium Pending Chloride Pending Carbon Dioxide Pending Anion Gap Pending BUN Pending Creatinine Pending Est GFR (MDRD) Af Amer Pending Est GFR (MDRD) Non-Af Pending BUN/Creatinine Ratio Pending Glucose Pending Calcium Pending Total Bilirubin Pending AST Pending ALT Pending Alkaline Phosphatase Pending Troponin I Total Protein Pending Albumin Pending Triglycerides Pending Cholesterol Pending LDL Cholesterol Pending VLDL Cholesterol Pending HDL Cholesterol Pending MRSA (PCR) POC Glucose 07/16/17 05:53 POC Glucose 145 H Clinical Impression(s) from Imaging Studies Abdomen/Pelvis CT 07/15/17 23:00 IMPRESSION: Severe cardiomegaly persistent moderate bilateral effusions body anasarca ascites and a protrusive appearance of the abdomen with a diastases of the rectus muscle. Atherosclerotic disease of the aorta Diverticulosis no evidence of diverticulitis. There are stable stones involving the right renal pelvis which is thought to likely be vascular rather than part of the ureter. Electronically Signed: Zoila Marquis MD at 23:51 EDT Tel , Service support , Chest X-Ray 07/15/17 23:25 IMPRESSION: Large worsening bilateral effusions atelectasis consider CHF. Cardiomegaly cardiac valvular ring. Electronically Signed: Zoila Marquis MD at 23:59 EDT Tel , Service support , Chest X-Ray 07/16/17 00:11 IMPRESSION: Status post intubation and NG tube lines in satisfactory position. Persistent bilateral effusions atelectasis. Electronically Signed: Zoila Marquis MD at 1:22 EDT Tel , Service support , Assessment/Plan RECOMMENDATIONS: 1. Continue attempts at volume optimization with diuretics. 2. Given the patient's low-grade fevers, will start antibiotics. 3. Send blood, urine and sputum cultures. 4. Check MRSA screen 5. Obtain wound care consultation 6. Obtain echocardiogram and trend troponins. 7. Decreased respiratory rate and tidal volume to minimize minute ventilation, as the patient is currently being over ventilated. 8. Start tube feeds today per nutrition recommendations 9. Start heparin drip, given subtherapeutic INR 10. Continue Pepcid for GI prophylaxis IMPRESSIONS: 1. Acute respiratory failure Likely secondary to decompensated heart failure. Agree with ongoing attempts at volume optimization with IV diuretics. Diuretic goal of 1.0 L over the next 24 hours. Hold beta-lili. Wean FiO2 to maintain oxygen saturations at or above 90%. Continue current sedation regimen with a goal to maintain a RASS of -1 to 1. Plan for daily paired spontaneous awakening and breathing trials. Okay to begin tube feeds today from my perspective. 2. Decompensated heart failure/troponin elevation/atrial fibrillation/status post mitral and tricuspid valve repair/aortic stenosis Cardiology has been consulted. Continue IV Lasix infusion as ordered. Repeat surface echocardiogram is pending. Troponin elevation likely secondary to demand ischemia. We will continue to trend accordingly. The patient will be started on a heparin drip, given her subtherapeutic INR at presentation. 3. Questionable PEREYRA cirrhosis The patient's cirrhosis history is not clear. The patient reportedly does not see a dedicated liver specialist. 4. Primary respiratory alkalosis The patient was being over ventilated throughout the course of the night. Ventilator changes have been made accordingly. Recheck ABG. 5. Advanced age and deconditioning/malnutrition and cachexia Complicates care, management, recovery and prognosis. Nutrition consultation for tube feed recommendations, which can be started today. Goals of care discussion with family. TIME: 45 minutes of critical care time, independent of procedures, was spent addressing the patient's acute respiratory failure, decompensated heart failure , troponin elevation, cirrhosis, respiratory alkalosis, review of all data and collaboration with the care team. ([id number]) Code Visit 9xxxx: [id number] Critical care first hour
[2017-07-16 06:37] LABS: International Normalized Ratio 1.9; Prothrombin Time (Protime)PT. 21.5 SECONDS (11.7-14.9)
[2017-07-16 07:00] LABS: Absolute Lymphocyte Count 0.48 X10^3/ul (0.83-4.51); Absolute Neutrophil Count 8.1 X10^3/uL (2.0-7.7); Basophil# 0.02 X10^3/uL; Basophil% 0.2 % (0-1); Eosinophil# 0.01 X10^3/uL; Eosinophils% 0.1 % (0-5); Hematocrit 40.3 % (37-47); Hemoglobin 12.9 g/dl (12.0-15.0); Lymphocyte # 0.48 X10^3/ul (4.0); Mean Corpuscular Hgb 30.5 pg (27.0-32.0); Mean Corpuscular Volume 95.3 fL (81-99); Mean Platelet Vol. 9.5 fl (6.2-12.0); Monocyte# 0.93 X10^3/uL; Monocyte% 9.7 % (0-10); Neutrophil # 8.13 X10^3/uL (2.7-7.7); Neutrophil % 84.9 % (47-70); Platelet Count 347 K/mm3 (150-450); RBC Distribution Width CV 15.1 % (11.6-14.6); RBC Distribution Width SD 52.1 fl (35.1-43.9); Red Blood Count 4.23 M/mm3 (4.2-5.4); White Blood Count 9.6 K/mm3 (4.4-11.0)
[2017-07-16 07:03] LABS: Differential Indicated SCAN CRITERIA MET; POSITIVE COUNT NO; POSITIVE DIFFERENTIAL YES; POSITIVE MORPHOLOGY NO
[2017-07-16 07:04] LABS: ALB/GLOB Ratio 0.6 RATIO (0.9-2.4); AST(SGOT) 33 U/L (15-37); Alanine Aminotransfer ALT/SGPT 16 U/L (13-56); Albumin, Serum 1.7 g/dL (3.2-5.0); Alkaline Phosphatase 48 U/L (45-117); Anion Gap 8 (5-15); BUN 19 mg/dL (7-18); BUN/Creat Ratio 27.6 RATIO (10-20); Calcium,Total 7.9 mg/dL (8.5-10.1); Chloride 104 mmol/L (98-107); Cholesterol 164 mg/dL (200); Creatinine, Serum 0.69 mg/dL (0.55-1.02); EST Glomerular Filtration Rate 88 mL/min (>60); Est Glom Filt Rate - Afr Amer 106 mL/min (>60); Estimated Creatinine Clearance 34.42 ml/min; Globulin 2.8 g/dL (2.2-4.2); Glucose 127 mg/dL (74-106); High Density Lipoprotein 39 mg/dL; Potassium 4.3 mmol/L (3.5-5.1); Protein, Total 4.5 g/dL (6.4-8.2); Sodium Level 143 mmol/L (136-145); Triglycerides 168 mg/dL; Very Low Density Lipoprotein 34 mg/dL (5-40)
--- NOTE | 2017-07-16 07:43 | PCM.PN.HOSP ---
Subjective: Patient is a 77 year old lady with past medical history sent on for CAD, systolic congestive heart failure cirrhosis of the liver secondary to nonalcoholic fatty liver disease A. fib who presented with abdominal pain and bloating, progressive shortness of breath. Patient apparently desaturated while is in the emergency department was intubated and subsequently sent to the intensive care unit for further management Objective: GENERAL: Sedated on the vent HEENT: Excoriation on the scalp with areas of dry vesicles NECK; supple, normal thyroid, CHEST: Diminished to auscultation bilaterally, HEART: Regular S1 S2, no audible murmurs ABDOMEN: soft, non-tender, normoactive bowel sounds, RECTAL: deferred EXTREMITIES: No no clubbing, no cyanosis. 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 SKIN: As described above, Vitals/I&O's: Vital Signs Temp Pulse Resp BP Pulse Ox 98.9 F 92 12 109/62 100 07/16/17 04:00 07/16/17 06:00 07/16/17 06:00 07/16/17 06:00 07/16/17 06:00 Oxygen Delivery Method Mechanical Ventilator Weight: 65.3 kg Body Mass Index (BMI) 27.1 Intake and Output for Last 24 Hours 07/14/17 07/15/17 07/16/17 23:59 23:59 23:59 Intake Total 149.7 / 149.7 Output Total 350 / 350 Balance -200.3 / -200.3 Laboratory Results 07/16/17 01:40: MRSA (PCR) Negative 07/16/17 02:50: Troponin I 0.09 H 07/16/17 04:55: Specimen Type ART, Sample Site L Radial, pH 7.59 H, Bicarbonate Actual 31.5 H, POC Total CO2 32, Base Excess 10 H, O2 Saturation 99, O2 % 60, ABG pCO2 32.5 L, ABG pO2 103 H, Leonel Test POS, Respiration Rate 16, O2 Delivery Device Vent, Minute Volume 6.00, Vent Mode A-C, Tidal Volume 400, POC PEEP 5, Blood Gas Notified Whom [facility], Blood Gas Notified Time 450 07/16/17 05:53: POC Glucose 145 H 07/16/17 06:10: WBC 9.6, RBC 4.23, Hgb 12.9, Hct 40.3, MCV 95.3, MCH 30.5, MCHC 32.0, RDW 15.1 H, RDW Differential 52.1 H, Plt Count 347, MPV 9.5, Immature Gran % (Auto) 0.100, Neut % (Auto) 84.9 H, Lymph % (Auto) 5.0 L, [place] % (Auto) 9.7, Eos % (Auto) 0.1, Baso % (Auto) 0.2, Absolute Neuts (auto) 8.1 H, Absolute Lymphs (auto) 0.48 L, Total Counted Not Reportable 07/16/17 06:10: Sodium 143, Potassium 4.3, Chloride 104, Carbon Dioxide 31.0, Anion Gap 8, BUN 19 H, Creatinine 0.69, Estim Creat Clear Calc 34.42, Est GFR (MDRD) Af Amer 106, Est GFR (MDRD) Non-Af 88, BUN/Creatinine Ratio 27.6 H, Glucose 127 H, Calcium 7.9 L, Total Bilirubin 0.20, AST 33, ALT 16, Alkaline Phosphatase 48, Total Protein 4.5 L, Albumin 1.7 L, Globulin 2.8, Albumin/Globulin Ratio 0.6 L, Triglycerides 168, Cholesterol 164, LDL Cholesterol 91, VLDL Cholesterol 34, HDL Cholesterol 39 L 07/16/17 06:10: PT 21.5 H, INR 1.9 07/16/17 06:10: Troponin I 0.13 H Current Medications Albuterol Sulfate (Ventolin Aerosols) 2.5 mg INHALATION Q4H.RT PAT Last Admin: 07/16/17 07:27 Dose: 2.5 mg Chlorhexidine Gluconate () 15 ml PO BID PAT Chlorhexidine Gluconate () 1 each TOPICAL DAILY PAT Last Admin: 07/16/17 04:28 Dose: 1 each Dextrose (D50w Syringe) 0 gm IV X1 PRN; Protocol PRN Reason: Hypoglycemia Famotidine (Pepcid) 20 mg GT BID PAT Furosemide (Lasix) 80 mg IV X1 PAT Last Admin: 07/16/17 00:30 Dose: 80 mg Glucagon () 1 mg IM .X1 PRN PRN Reason: Hypoglycemia Propofol (Diprivan) 1,000 mg in 100 mls @ 1.905 mls/hr CONT INF .Q12H PAT; 5 MCG/KG/MIN PRN Reason: Protocol Last Admin: 07/16/17 07:04 Dose: 1.905 mls/hr Fentanyl () 100 mls @ 2.5 mls/hr IV .Q40H [facility] PRN Reason: Protocol Last Admin: 07/16/17 02:28 Dose: 2.5 mls/hr Furosemide 500 mg/ (Miscellaneous Information) 50 mls @ 1 mls/hr CONT INF .Q50H [facility] PRN Reason: 10 MG/HR Last Admin: 07/16/17 02:32 Dose: 1 mls/hr Nitroglycerin/Dextrose 25 mg/ (N/A) 250 mls @ 3 mls/hr IV .[id number] [facility] PRN Reason: 5 MCG/MIN Last Admin: 07/16/17 02:16 Dose: 3 mls/hr Sodium Chloride () 250 mls @ 15 mls/hr IV .[id number] PRN PRN Reason: SALINE FLUSH Insulin Aspart (Novolog Flexpen (Bkc)) 0 units SC Q6 [facility] PRN Reason: Protocol Last Admin: 07/16/17 06:03 Dose: Not Given Magnesium Hydroxide (Milk Of Magnesia) 30 ml PO DAILY PRN PRN PRN Reason: Constipation Ondansetron HCl (Zofran) 4 mg IV Q8H PRN PRN PRN Reason: NAUSEA Promethazine HCl (Phenergan Iv) 12.5 mg IV Q6H PRN PRN PRN Reason: NAUSEA/VOMITING Sodium Chloride () 5 - 30 ml IV UD PRN PRN Reason: SALINE FLUSH Last Admin: 07/16/17 04:28 Dose: 10 ml Warfarin Sodium (Coumadin (Pbkc)) 3 mg PO DAILY@1700 [facility] Medical Necessity - Tobacco Use Smoking Status: Never smoker Tobacco Use: Non-smoker Assessment/Plan Patient is a 77 year old lady with past medical history sent on for CAD, systolic congestive heart failure cirrhosis of the liver secondary to nonalcoholic fatty liver disease A. fib who presented with abdominal pain and bloating, progressive shortness of breath. Patient apparently desaturated while is in the emergency department was intubated and subsequently sent to the intensive care unit for further management 1Acute Hypoxic and Hypercarbic Respiratory Failure secondary to Acute Decompensated Systolic CHF: Admitted to the intensive care unit currently on the vent management deferred to pulmonary medicine patient was started on Lasix drip 2. Valvular heart disease: She of mitral valve replacement with [facility], tricuspid valve repair. Patient is on systemic anticoagulation with Coumadin INR was subtherapeutic on admission catheter and heparin was within for INR to become therapeutic (2.5-3.5) patient also has history of severe aortic stenosis seen by cardiology recommendation is for possible consideration for TAVR down the line medically stable 3. CAD with previous CABG 4. Chronic A. fib 5. Hypertension-blood pressure controlled, 6. Dyslipidemia-history 7. 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 Recent varicella zoster involving the ophthalmic branch of the 8th cranial nerve patient has healing vesicles in various stage 9. Severe protein calorie malnutrition evidenced by hypoalbuminemia loss of flaccid muscle. Consult was placed to dietitian on admission 10. Diabetes mellitus type 2 managed with diet 11. DVT Prophylaxis: coumadin Code Visit Inpatient E&M: [id number] [facility] L3
[2017-07-16 08:16] LABS: Allen Test POS; Base Excess 9 mmol/L (-2 to +2); Blood Gas Specimen Type ART; FI02 40; Mode A-C; O2 Delivery Device Vent; PEEP 5; PO2 75 mmHG (75-100); RR 12; SITE R Radial; SO2 96 % (95-99); Time Given 810; Total Carbon Dioxide 33 mmol/L; Vt 400; pCO2 38.3 mmHg (35-45); pH 7.53 (7.35-7.45)
[2017-07-16] MEDS: HEPARIN/D5w 25,000 UNITS 25,000 UNITS/250 ML IV.SOLN. 10 UNITS IV (09:45)
--- NOTE | 2017-07-16 10:35 | PCM.CONS.C ---
Problem List (1) Congestive heart failure Status: Chronic Qualifiers: Heart failure type: systolic Heart failure chronicity: chronic Qualified Code(s): I50.22 - Chronic systolic (congestive) heart failure (2) H/O mitral valve replacement with mechanical valve Status: Chronic Comment: on coumadin (3) Atrial fibrillation Status: Chronic Qualifiers: Atrial fibrillation type: chronic Qualified Code(s): I48.2 - Chronic atrial fibrillation (4) Hypertensive urgency Status: Acute (5) Cardiomyopathy Status: Chronic Qualifiers: Cardiomyopathy type: unspecified Qualified Code(s): I42.9 - Cardiomyopathy, unspecified (6) H/O tricuspid valve repair Status: Chronic (7) Hyperlipidemia Status: Chronic Qualifiers: Hyperlipidemia type: unspecified Qualified Code(s): E78.5 - Hyperlipidemia, unspecified Reason for Consult Date of Consultation: 07/16/17 Reason for Consultation: Acute on chronic congestive heart failure, shortness of breath, pleural effusions, mitral valve replacement, tricuspid valve repair, History of Present Illness: The patient is a 77 year old F, patient of Dr. Harrison's, last seen in our office by Siri Gutierrez on 04/10/16, who has a history of nonischemic cardiomyopathy with nonobstructive coronary artery disease as diagnosed by catheterization on 06/14/[address] Harrison. She has a history of chronic atrial fibrillation, mechanical mitral valve repair, tricuspid valve repair with annuloplasty ring, chronic congestive heart failure with an EF of 30%, hypertension hyperlipidemia. Patient has been previously hospitalized for IV Lasix therapy for lower extremity edema as well as chronic pleural effusions. She has been anticoagulated with Coumadin therapy. The patient was doing well up until around Friday of this week where her Lasix was curtailed as she was concerned about possible worsening kidney function. On Friday she developed significant dyspnea on exertion and shortness of breath and by yesterday she was brought to the emergency room where she was profoundly dyspneic, deteriorated from a respiratory standpoint, and required emergent intubation in the emergency room. She was placed on a IV heparin drip as her INR was less than 2.0, IV Lasix drip, IV nitroglycerin drip and admitted to the intensive care unit on a ventilator. In addition she has a profound necrotic smell to her, possibly due to previous shingles detected in the recent past with a significant eschar over her right forehead. Patient lives with her , and her son. Her most recent echocardiogram dated 03/25/16 demonstrated an EF around 30%, RVSP of 45 mmHg, severe biatrial enlargement, annuloplasty ring in the tricuspid position, moderate TR, and severe aortic stenosis with a peak/mean gradient of 35/20 mmHg but an estimated aortic valve area 0.76 cm?. Her aortic valve area may be a result of poor cardiac output aortic stenosis. Repeat echo is pending. Her most recent catheterization took place on 06/14/08 which showed nonobstructive coronary disease. The patient denies any chest pain, angina but does admit to orthopnea. Currently the patient is intubated but awake despite her propofol drip, and answers questions by nodding her head. She obeys commands. Past Medical History Allergies/Adverse Reactions: Allergies cortisone Allergy (Verified 07/15/17 22:23) Unknown Home Medications: Ambulatory Orders Medication Instructions Recorded Nitroglycerin [Nitrostat] 0.4 mg SUBLINGUAL Q5M PRN #25 03/28/16 tablet Potassium Chloride [K-Dur] 20 meq PO BIDCM #60 tablet 03/28/16 furosemide 40 mg tablet 80 mg PO BID #120 tab 06/12/17 Warfarin [Coumadin] 3 mg PO DAILY 07/15/17 Past Medical History (Chronic Problems): Chronic Problems Congestive heart failure (Chronic) H/O mitral valve replacement with mechanical valve (Chronic) on coumadin Cirrhosis (Chronic) Hypertension (Chronic) GERD (gastroesophageal reflux disease) (Chronic) Atrial fibrillation (Chronic) CAD (coronary artery disease) (Chronic) Diabetes mellitus (Chronic) Cardiomyopathy (Chronic) H/O tricuspid valve repair (Chronic) Hyperlipidemia (Chronic) Anxiety and depression (Chronic) Surgical History: - - MV Mechanical Valve [place], TV Repair, CABG, Appendectomy. 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 Denies: Chest Discomfort, Palpitations, Lightheadedness, Dizziness, Near Syncope, Syncope Respiratory: Denies: Cough, Sputum Production, Hemoptysis Gastrointestinal: Denies: Hematemesis, Hematochezia, Melena Genitourinary: Denies: Dysuria, Hematuria Skin: Denies: Rash Subjectve: Patient intubated, awake, answers questions appropriately. No acute distress. Objective: Vital Signs Temp Pulse Resp BP Pulse Ox 100.1 F H 84 12 115/62 97 07/16/17 08:00 07/16/17 10:29 07/16/17 10:29 07/16/17 09:00 07/16/17 10:26 Oxygen Delivery Method Mechanical Ventilator Weight: 143 lb 15.39 oz Body Mass Index (BMI) 27.1 Intake and Output for Last 24 Hours 07/14/17 07/15/17 07/16/17 23:59 23:59 23:59 Intake Total 149.7 / 149.7 Output Total 450 / 450 Balance -300.3 / -300.3 General: Awake, Alert, Oriented x 3 HEENT: PERRL, EOMI, Sclera Non Icteric Neck: Supple, Good ROM, No Lymph Node Enlargement Lungs: Diminished Juan C Bases Cardiovascular: Regular Rhythm, Normal S2, No Rubs, No Gallops Murmur Murmur: Grade 3/6, Crescendo-Decrescendo Vascular: No Carotid Bruits, Normal Femoral Pulses, Normal Radial Pulses, Normal Dorsalis Pedal Pulse, Normal Posterior Tibial Pulses Abdomen: Bowel Sounds Present, Soft, Non Tender, No HSM, No Organomegaly Extremities: No Cyanosis, No Clubbing, No edema Neurological: No Focal Motor or Sensory Deficit 07/16/17 02:50: Troponin I 0.09 H 07/16/17 04:55: pH 7.59 H, Bicarbonate Actual 31.5 H, POC Total CO2 32, Base Excess 10 H, O2 Saturation 99, ABG pCO2 32.5 L, ABG pO2 103 H, Leonel Test POS 07/16/17 06:10: WBC 9.6, RBC 4.23, Hgb 12.9, Hct 40.3, MCV 95.3, MCH 30.5, MCHC 32.0, RDW 15.1 H, RDW Differential 52.1 H, Plt Count 347, MPV 9.5, Immature Gran % (Auto) 0.100, Neut % (Auto) 84.9 H, Lymph % (Auto) 5.0 L, Morton % (Auto) 9.7, Eos % (Auto) 0.1, Baso % (Auto) 0.2, Absolute Neuts (auto) 8.1 H, Total Counted Not Reportable 07/16/17 06:10: Sodium 143, Potassium 4.3, Chloride 104, Carbon Dioxide 31.0, Anion Gap 8, BUN 19 H, Creatinine 0.69, Est GFR (MDRD) Af Amer 106, Est GFR (MDRD) Non-Af 88, BUN/Creatinine Ratio 27.6 H, Glucose 127 H, Calcium 7.9 L, Total Bilirubin 0.20, Triglycerides 168, Cholesterol 164, LDL Cholesterol 91, VLDL Cholesterol 34, HDL Cholesterol 39 L 07/16/17 06:10: PT 21.5 H, INR 1.9 07/16/17 06:10: Troponin I 0.13 H 07/16/17 08:10: pH 7.53 H, Bicarbonate Actual 32.0 H, POC Total CO2 33, Base Excess 9 H, O2 Saturation 96, ABG pCO2 38.3, ABG pO2 75, Leonel Test POS Rhythm: EKG: Normal sinus rhythm with 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 ECHO: Pending Stress Test: Cardiac Cath: PCI: CT Surgery: Holter monitor: EPS: PPM: CXR: Chest CT Scan: Assessment/Plan 1. Cardiomyopathy: The patient appears to have acute on chronic congestive heart failure most likely as a result of medical noncompliance as she has currently not been taking her Lasix out of concern for her kidney dysfunction. Her BUN and creatinine are within normal limits but her creatinine clearance is in the mid 30s. She is currently on a Lasix drip, would recommend a Lasix drip until the patient's dry weight has been achieved and that her pleural effusions have improved to the point where she can be extubated. I would not recommend repeat catheterization at this time. Patient was on Coreg 3.125 mg p.o. twice daily, Coumadin, lisinopril 10 mg a day and Lasix 80 mg p.o. twice daily. The patient may require periodic metolazone 2.5 mg once or twice a week in order to maintain fluid status. Patient has undergone a repeat echocardiogram on this visit, and we will try to assess her LV function, and degree of aortic stenosis. If she truly has significant aortic stenosis this is most likely contributing to her pulmonary edema, pleural effusions, and recidivism with her congestive heart failure. Would recommend gentle diuresis to avoid acute renal failure with the hope of diuresing her at least 1-1.5 L per day. Would recommend holding her Coreg until her dry weight has been achieved. We will continue lisinopril 10 mg p.o. daily for afterload reduction In addition I would recommend a 1500 cc fluid restriction as well as as 2. 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 Patient has had epistasis in the past but appears to be tolerating Coumadin well. I am in agreement with IV heparin to keep her PTT above 70 until her INR has normalized. 3. Coronary artery disease: Her last catheterization was approximately 9 years ago which demonstrated mild nonobstructive coronary disease. Once the patient recovers, she may be a candidate for a T AVR procedure if she truly has aortic stenosis that is significantly impacting on her cardiac hemodynamics. This would have to be assessed with a dobutamine echocardiogram to determine if she has a dynamic aortic valve gradient with infusion of dobutamine. 4. Shingles: The patient has a profoundly necrotic smell in the room, which may be result of necrotic tissue that has not yet been appreciated possibly as a result of her shingles. I will defer this to Dr. Montague's assessment. 5. Thank you very much for the opportunity to put dissipate in the cardiac care of your patient. Consultation time took place between 9 AM and 9:45 AM. Code Visit Inpatient E&M: 39204 Init Hosp L3
--- NOTE | 2017-07-16 11:36 | CASEMGMT ---
See RN CM Assessment link. CM will continue to follow and assist with DC planning. Pt currently intubated. Jasmeet UREÑAN RN ACM
[2017-07-16 11:49] LABS: T4 Free Direct 1.35 ng/dL (0.76-1.46)
[2017-07-16] MEDS: Polyethylene Glycol 3350 17 GM PACKET GT ×2 (11:56→21:12)
[2017-07-16] MEDS: Senna/Docusate Sodium 1 Tablet 2 TABLET GT ×2 (11:56→21:12)
[2017-07-16] MEDS: Chlorhexidine 15 ML PO ×2 (11:57→21:11)
[2017-07-16] MEDS: Famotidine 20 MG Tablet GT ×2 (11:57→21:12)
[2017-07-16 13:11] LABS: Bedside Glucose 131 mg/dL (70-110)
[2017-07-16 13:25] LABS: M R Staph aureus DNA By PCR Negative (Negative); Probe Check PASS; Specimen Processing Control PASS
[2017-07-16] MEDS: Vital AF 1.2 Cal Liquid 1,000 ML 55 ML GT (14:45)
[2017-07-16 15:13] LABS: Anion Gap 9 (5-15); BUN 21 mg/dL (7-18); BUN/Creat Ratio 25.5 RATIO (10-20); Calcium,Total 7.4 mg/dL (8.5-10.1); Chloride 105 mmol/L (98-107); Creatinine, Serum 0.82 mg/dL (0.55-1.02); EST Glomerular Filtration Rate 71 mL/min (>60); Est Glom Filt Rate - Afr Amer 86 mL/min (>60); Estimated Creatinine Clearance 41.98 ml/min; Glucose 121 mg/dL (74-106); Magnesium 2.4 mg/dL (1.6-2.6); Potassium 4.4 mmol/L (3.5-5.1); Sodium Level 145 mmol/L (136-145)
[2017-07-16 15:17] LABS: Phosphorus 4.2 mg/dL (2.5-4.9)
[2017-07-16 17:02] LABS: Partial Thromboplast Time 64.2 Seconds (24.1-36.2)
[2017-07-16 18:46] LABS: Bedside Glucose 164 mg/dL (70-110)
--- NOTE | 2017-07-16 19:34 | NURSING ---
Spoke w/pt's family earlier regarding odor in room, asked if pt uses some lotion/ointment that could be causing odor. Pt's states that the pt uses DMSO frequently and has even ingested it before and it can cause an odor. Pt's does not notice odor as he 'is used to it'. Dr Montague made aware.
[2017-07-16 23:04] LABS: Partial Thromboplast Time 122.2 Seconds (24.1-36.2)
[2017-07-17] VITALS (41 sets, daily range): BP systolic 113–159; BP diastolic 44–98; PULSE 62–102; RESP 10–24; TEMP 37.1–38.2; O2SAT 89–100
--- NOTE | 2017-07-17 00:56 | NURSING ---
This RN taking over primary care of this patient at this time.
[2017-07-17 01:05] LABS: Bedside Glucose 165 mg/dL (70-110)
[2017-07-17] MEDS: Albuterol 2.5 MG/3 ML VIAL.NEB. INHALATION ×6 (02:43→23:31)
[2017-07-17] MEDS: CHLORHEXIDINE GLUC 2% CLOTH 1 EACH TOWELETTE TOPICAL (03:45)
[2017-07-17 05:21] LABS: Hematocrit 41.7 % (37-47); Hemoglobin 13.6 g/dl (12.0-15.0); Mean Corp Hgb Conc 32.6 g/gl (32-36); Mean Corpuscular Hgb 31.1 pg (27.0-32.0); Mean Corpuscular Volume 95.4 fL (81-99); Mean Platelet Vol. 9.3 fl (6.2-12.0); Platelet Count 430 K/mm3 (150-450); RBC Distribution Width CV 15.3 % (11.6-14.6); Red Blood Count 4.37 M/mm3 (4.2-5.4); White Blood Count 11.8 K/mm3 (4.4-11.0)
[2017-07-17 05:29] LABS: Partial Thromboplast Time 56.4 Seconds (24.1-36.2)
[2017-07-17 05:31] LABS: Scan Indicated on CBC? Y/N NO
[2017-07-17 05:38] LABS: International Normalized Ratio 3.1; Prothrombin Time (Protime)PT. 31.9 SECONDS (11.7-14.9)
[2017-07-17 05:46] LABS: Anion Gap 11 (5-15); BUN 27 mg/dL (7-18); BUN/Creat Ratio 24.3 RATIO (10-20); Calcium,Total 7.7 mg/dL (8.5-10.1); Chloride 101 mmol/L (98-107); Creatinine, Serum 1.11 mg/dL (0.55-1.02); EST Glomerular Filtration Rate 50 mL/min (>60); Est Glom Filt Rate - Afr Amer 61 mL/min (>60); Estimated Creatinine Clearance 31.01 ml/min; Glucose 173 mg/dL (74-106); Magnesium 2.3 mg/dL (1.6-2.6); Potassium 3.7 mmol/L (3.5-5.1); Sodium Level 143 mmol/L (136-145)
[2017-07-17] MEDS: 0.9% NaCl Peripheral Flush Adult/Peds IV ×2 (05:57→22:20)
[2017-07-17 06:25] LABS: Bedside Glucose 194 mg/dL (70-110)
--- NOTE | 2017-07-17 07:05 | PCM.PN.INT ---
Subjective: The patient was seen and examined at the bedside this morning. Events from the last 24 hours have been reviewed. The patient is currently afebrile, hemodynamically stable and maintaining appropriate oxygen saturations with an FiO2 requirement of 35%. The patient is currently tolerating her spontaneous breathing trial. She remains on a continuous Lasix drip. She is overall net +521 mL's for the admission. I was notified yesterday by the nursing staff that they did have a discussion with the patient's who did indicate that the patient is utilizing DMSO (dimethyl sulfoxide), which is a solvent that is easily absorbed by the skin and sometimes used in treating conditions like shingles. Objective: The patient's most recent lab work, culture data and imaging studies have all been personally reviewed. Wound Gram stain revealed rare gram-positive cocci and gram-negative rods. Blood, urine and sputum culture pending. Surface echocardiogram revealed a severely dilated LV with an ejection fraction estimated to be 10-15%. There was also note of severe biatrial enlargement in the right ventricular systolic pressure estimated to be 43 mmHg. Surface echocardiogram from March 2016 revealed moderately severe global LV systolic dysfunction with an ejection fraction of 30%. Right ventricular systolic pressure was estimated to be 45 mmHg. There was also note of moderate to severe aortic valve stenosis. CT abdomen/pelvis revealed moderate bilateral pleural effusions, anasarca diverticulosis without evidence of inflammation. Plain film chest x-ray revealed pulmonary edema and large bilateral pleural effusions. General: No apparent distress, - - Remains intubated and mechanically ventilated. Currently tolerating CPAP without issue. HEENT: Atraumatic, PERRLA, Normocephalic Oral: No Gingival or Mucosal Lesions/ Ulcerations, - - Endotracheal and OG tube remain in place Neck: Supple, No Nodes, Trachea Midline Lungs: No rhonchi, No wheeze, Diminished, Rales Cardiovascular: Normal S1, Normal S2, Irregular Rate, Murmur, No rub noted, No Gallop Abdomen: Bowel Sounds Present, Soft, Non Tender Extremities: No clubbing, No cyanosis, Edema Skin: - - No significant change from previous. Temporal wasting present. Musculoskeletal: Cachexia, Muscle Wasting Lymphatic: No Cervical, Supraclavicular, or Inguinal Adenopathy Neurological: - - No focal deficits. Moves all extremities spontaneously. Alert and following commands appropriately. Vital Signs Temp Pulse Resp BP Pulse Ox 98.9 F 85 20 H 154/98 H 98 07/17/17 06:00 07/17/17 06:00 07/17/17 06:00 07/17/17 06:00 07/17/17 06:00 Oxygen Delivery Method CPAP Weight: 146 lb 6.191 oz Body Mass Index (BMI) 27.1 Intake and Output for Last 24 Hours 07/15/17 07/16/17 07/17/17 23:59 23:59 23:59 Intake Total 1349.5 / 1349.5 596.3 / 596.3 Output Total 887 / 887 537 / 537 Balance 462.5 / 462.5 59.3 / 59.3 Labs (Last 48 Hours) 07/16/17 07/16/17 07/16/17 01:40 02:50 04:55 WBC RBC Hgb Hct MCV MCH MCHC RDW RDW Differential Plt Count MPV Immature Gran % (Auto) Neut % (Auto) Lymph % (Auto) [place] % (Auto) Eos % (Auto) Baso % (Auto) Absolute Neuts (auto) Absolute Lymphs (auto) Total Counted PT INR APTT Specimen Type ART Sample Site L Radial pH 7.59 H Bicarbonate Actual 31.5 H POC Total CO2 32 Base Excess 10 H O2 Saturation 99 O2 % 60 ABG pCO2 32.5 L ABG pO2 103 H Leonel Test POS Respiration Rate 16 O2 Delivery Device Vent Minute Volume 6.00 Vent Mode A-C Tidal Volume 400 POC PEEP 5 Blood Gas Notified Whom HOSP MD Blood Gas Notified Time 450 Sodium Potassium Chloride Carbon Dioxide Anion Gap BUN Creatinine Estim Creat Clear Calc Est GFR (MDRD) Af Amer Est GFR (MDRD) Non-Af BUN/Creatinine Ratio Glucose Calcium Phosphorus Magnesium Total Bilirubin AST ALT Alkaline Phosphatase Troponin I 0.09 H Total Protein Albumin Globulin Albumin/Globulin Ratio Triglycerides Cholesterol LDL Cholesterol VLDL Cholesterol HDL Cholesterol Free T4 MRSA (PCR) Negative POC Glucose 07/16/17 07/16/17 07/16/17 05:53 06:10 06:10 WBC 9.6 RBC 4.23 Hgb 12.9 Hct 40.3 MCV 95.3 MCH 30.5 MCHC 32.0 RDW 15.1 H RDW Differential 52.1 H Plt Count 347 MPV 9.5 Immature Gran % (Auto) 0.100 Neut % (Auto) 84.9 H Lymph % (Auto) 5.0 L [place] % (Auto) 9.7 Eos % (Auto) 0.1 Baso % (Auto) 0.2 Absolute Neuts (auto) 8.1 H Absolute Lymphs (auto) 0.48 L Total Counted Not Reportable PT INR APTT Specimen Type Sample Site pH Bicarbonate Actual POC Total CO2 Base Excess O2 Saturation O2 % ABG pCO2 ABG pO2 Leonel Test Respiration Rate O2 Delivery Device Minute Volume Vent Mode Tidal Volume POC PEEP Blood Gas Notified Whom Blood Gas Notified Time Sodium 143 Potassium 4.3 Chloride 104 Carbon Dioxide 31.0 Anion Gap 8 BUN 19 H Creatinine 0.69 Estim Creat Clear Calc 34.42 Est GFR (MDRD) Af Amer 106 Est GFR (MDRD) Non-Af 88 BUN/Creatinine Ratio 27.6 H Glucose 127 H Calcium 7.9 L Phosphorus Magnesium Total Bilirubin 0.20 AST 33 ALT 16 Alkaline Phosphatase 48 Troponin I Total Protein 4.5 L Albumin 1.7 L Globulin 2.8 Albumin/Globulin Ratio 0.6 L Triglycerides 168 Cholesterol 164 LDL Cholesterol 91 VLDL Cholesterol 34 HDL Cholesterol 39 L Free T4 MRSA (PCR) POC Glucose 145 H 07/16/17 07/16/17 07/16/17 06:10 06:10 06:10 WBC RBC Hgb Hct MCV MCH MCHC RDW RDW Differential Plt Count MPV Immature Gran % (Auto) Neut % (Auto) Lymph % (Auto) [place] % (Auto) Eos % (Auto) Baso % (Auto) Absolute Neuts (auto) Absolute Lymphs (auto) Total Counted PT 21.5 H INR 1.9 APTT Specimen Type Sample Site pH Bicarbonate Actual POC Total CO2 Base Excess O2 Saturation O2 % ABG pCO2 ABG pO2 Leonel Test Respiration Rate O2 Delivery Device Minute Volume Vent Mode Tidal Volume POC PEEP Blood Gas Notified Whom Blood Gas Notified Time Sodium Potassium Chloride Carbon Dioxide Anion Gap BUN Creatinine Estim Creat Clear Calc Est GFR (MDRD) Af Amer Est GFR (MDRD) Non-Af BUN/Creatinine Ratio Glucose Calcium Phosphorus Magnesium Total Bilirubin AST ALT Alkaline Phosphatase Troponin I 0.13 H Total Protein Albumin Globulin Albumin/Globulin Ratio Triglycerides Cholesterol LDL Cholesterol VLDL Cholesterol HDL Cholesterol Free T4 1.35 MRSA (PCR) POC Glucose 07/16/17 07/16/17 07/16/17 08:10 11:50 13:06 WBC RBC Hgb Hct MCV MCH MCHC RDW RDW Differential Plt Count MPV Immature Gran % (Auto) Neut % (Auto) Lymph % (Auto) [place] % (Auto) Eos % (Auto) Baso % (Auto) Absolute Neuts (auto) Absolute Lymphs (auto) Total Counted PT INR APTT Specimen Type ART Sample Site R Radial pH 7.53 H Bicarbonate Actual 32.0 H POC Total CO2 33 Base Excess 9 H O2 Saturation 96 O2 % 40 ABG pCO2 38.3 ABG pO2 75 Leonel Test POS Respiration Rate 12 O2 Delivery Device Vent Minute Volume 8.00 Vent Mode A-C Tidal Volume 400 POC PEEP 5 Blood Gas Notified Whom ICU MD Blood Gas Notified Time 810 Sodium Potassium Chloride Carbon Dioxide Anion Gap BUN Creatinine Estim Creat Clear Calc Est GFR (MDRD) Af Amer Est GFR (MDRD) Non-Af BUN/Creatinine Ratio Glucose Calcium Phosphorus Magnesium Total Bilirubin AST ALT Alkaline Phosphatase Troponin I Total Protein Albumin Globulin Albumin/Globulin Ratio Triglycerides Cholesterol LDL Cholesterol VLDL Cholesterol HDL Cholesterol Free T4 MRSA (PCR) Negative POC Glucose 131 H 07/16/17 07/16/17 07/16/17 14:35 14:35 14:35 WBC RBC Hgb Hct MCV MCH MCHC RDW RDW Differential Plt Count MPV Immature Gran % (Auto) Neut % (Auto) Lymph % (Auto) [place] % (Auto) Eos % (Auto) Baso % (Auto) Absolute Neuts (auto) Absolute Lymphs (auto) Total Counted PT INR APTT Specimen Type Sample Site pH Bicarbonate Actual POC Total CO2 Base Excess O2 Saturation O2 % ABG pCO2 ABG pO2 Leonel Test Respiration Rate O2 Delivery Device Minute Volume Vent Mode Tidal Volume POC PEEP Blood Gas Notified Whom Blood Gas Notified Time Sodium 145 Potassium 4.4 Chloride 105 Carbon Dioxide 31.0 Anion Gap 9 BUN 21 H Creatinine 0.82 Estim Creat Clear Calc 41.98 Est GFR (MDRD) Af Amer 86 Est GFR (MDRD) Non-Af 71 BUN/Creatinine Ratio 25.5 H Glucose 121 H Calcium 7.4 L Phosphorus 4.2 Magnesium 2.4 Total Bilirubin AST ALT Alkaline Phosphatase Troponin I 0.11 H Total Protein Albumin Globulin Albumin/Globulin Ratio Triglycerides Cholesterol LDL Cholesterol VLDL Cholesterol HDL Cholesterol Free T4 MRSA (PCR) POC Glucose 07/16/17 07/16/17 07/16/17 16:35 18:38 22:30 WBC RBC Hgb Hct MCV MCH MCHC RDW RDW Differential Plt Count MPV Immature Gran % (Auto) Neut % (Auto) Lymph % (Auto) [place] % (Auto) Eos % (Auto) Baso % (Auto) Absolute Neuts (auto) Absolute Lymphs (auto) Total Counted PT INR APTT 64.2 H 122.2 H* Specimen Type Sample Site pH Bicarbonate Actual POC Total CO2 Base Excess O2 Saturation O2 % ABG pCO2 ABG pO2 Leonel Test Respiration Rate O2 Delivery Device Minute Volume Vent Mode Tidal Volume POC PEEP Blood Gas Notified Whom Blood Gas Notified Time Sodium Potassium Chloride Carbon Dioxide Anion Gap BUN Creatinine Estim Creat Clear Calc Est GFR (MDRD) Af Amer Est GFR (MDRD) Non-Af BUN/Creatinine Ratio Glucose Calcium Phosphorus Magnesium Total Bilirubin AST ALT Alkaline Phosphatase Troponin I Total Protein Albumin Globulin Albumin/Globulin Ratio Triglycerides Cholesterol LDL Cholesterol VLDL Cholesterol HDL Cholesterol Free T4 MRSA (PCR) POC Glucose 164 H 07/17/17 07/17/17 07/17/17 00:14 05:05 05:05 WBC 11.8 H RBC 4.37 Hgb 13.6 Hct 41.7 MCV 95.4 MCH 31.1 MCHC 32.6 RDW 15.3 H RDW Differential 52.0 H Plt Count 430 MPV 9.3 Immature Gran % (Auto) Neut % (Auto) Lymph % (Auto) [place] % (Auto) Eos % (Auto) Baso % (Auto) Absolute Neuts (auto) Absolute Lymphs (auto) Total Counted PT INR APTT Specimen Type Sample Site pH Bicarbonate Actual POC Total CO2 Base Excess O2 Saturation O2 % ABG pCO2 ABG pO2 Leonel Test Respiration Rate O2 Delivery Device Minute Volume Vent Mode Tidal Volume POC PEEP Blood Gas Notified Whom Blood Gas Notified Time Sodium 143 Potassium 3.7 Chloride 101 Carbon Dioxide 31.0 Anion Gap 11 BUN 27 H Creatinine 1.11 H Estim Creat Clear Calc 31.01 Est GFR (MDRD) Af Amer 61 Est GFR (MDRD) Non-Af 50 L BUN/Creatinine Ratio 24.3 H Glucose 173 H Calcium 7.7 L Phosphorus 5.0 H Magnesium 2.3 Total Bilirubin AST ALT Alkaline Phosphatase Troponin I Total Protein Albumin Globulin Albumin/Globulin Ratio Triglycerides Cholesterol LDL Cholesterol VLDL Cholesterol HDL Cholesterol Free T4 MRSA (PCR) POC Glucose 165 H 07/17/17 07/17/17 07/17/17 05:05 05:05 05:55 WBC RBC Hgb Hct MCV MCH MCHC RDW RDW Differential Plt Count MPV Immature Gran % (Auto) Neut % (Auto) Lymph % (Auto) [place] % (Auto) Eos % (Auto) Baso % (Auto) Absolute Neuts (auto) Absolute Lymphs (auto) Total Counted PT 31.9 H INR 3.1 APTT 56.4 H Specimen Type Sample Site pH Bicarbonate Actual POC Total CO2 Base Excess O2 Saturation O2 % ABG pCO2 ABG pO2 Leonel Test Respiration Rate O2 Delivery Device Minute Volume Vent Mode Tidal Volume POC PEEP Blood Gas Notified Whom Blood Gas Notified Time Sodium Potassium Chloride Carbon Dioxide Anion Gap BUN Creatinine Estim Creat Clear Calc Est GFR (MDRD) Af Amer Est GFR (MDRD) Non-Af BUN/Creatinine Ratio Glucose Calcium Phosphorus Magnesium Total Bilirubin AST ALT Alkaline Phosphatase Troponin I Total Protein Albumin Globulin Albumin/Globulin Ratio Triglycerides Cholesterol LDL Cholesterol VLDL Cholesterol HDL Cholesterol Free T4 MRSA (PCR) POC Glucose 194 H Microbiology 07/16/17 08:15 Wound - Head Gram Stain - Final Clinical Impression(s) from Imaging Studies Abdomen/Pelvis CT 07/15/17 23:00 IMPRESSION: Severe cardiomegaly persistent moderate bilateral effusions body anasarca ascites and a protrusive appearance of the abdomen with a diastases of the rectus muscle. Atherosclerotic disease of the aorta Diverticulosis no evidence of diverticulitis. There are stable stones involving the right renal pelvis which is thought to likely be vascular rather than part of the ureter. Electronically Signed: Zoila Marquis MD at 23:51 EDT Tel , Service support , Chest X-Ray 07/15/17 23:25 IMPRESSION: Large worsening bilateral effusions atelectasis consider CHF. Cardiomegaly cardiac valvular ring. Electronically Signed: Zoila Marquis MD at 23:59 EDT Tel , Service support , Chest X-Ray 07/16/17 00:11 IMPRESSION: Status post intubation and NG tube lines in satisfactory position. Persistent bilateral effusions atelectasis. Electronically Signed: Zoila Marquis MD at 1:22 EDT Tel , Service support , Medical Necessity - Tobacco Use Smoking Status: Never smoker Tobacco Use: Non-smoker Assessment/Plan RECOMMENDATIONS: 1. Continue attempts at volume optimization with diuretics. Will give a one-time dose of metolazone and also add dobutamine to encourage diuresis. 2. Obtain repeat plain film chest x-ray 3. Continue patient on CPAP today with plans to transition back to assist control overnight. 4. Would hold off on extubation until the patient can be further volume optimized 5. Continue antibiotics, pending finalized infectious workup 6. Continue tube feeds as tolerated 7. Discontinue heparin drip, given therapeutic INR 8. Continue Pepcid for GI prophylaxis 9. Recommend goals of care/CODE STATUS discussion with family. IMPRESSIONS: 1. Acute respiratory failure Likely secondary to decompensated heart failure. Agree with ongoing attempts at volume optimization with IV diuretics. In addition to the patient's Lasix drip, she will receive a one-time dose of metolazone and dobutamine will be started to encourage diuresis. The patient is currently tolerating CPAP. Would plan to continue the patient on spontaneous mode mechanical ventilation throughout the day and transition back to assist control overnight. Ideally, would like the patient to be volume optimized prior to consideration for extubation. Wean FiO2 to maintain oxygen saturations at or above 90%. Continue current sedation regimen with a goal to maintain a RASS of -1 to 1. Continue tube feeds as ordered. 2. Decompensated heart failure/troponin elevation/atrial fibrillation/status post mitral and tricuspid valve repair/aortic stenosis Cardiology is following. Continue IV Lasix infusion as ordered. We will start low-dose dobutamine today. Troponin elevation likely secondary to demand ischemia. The patient's heparin drip can be discontinued as her INR is now therapeutic. 3. Questionable PEREYRA cirrhosis The patient's cirrhosis history is not clear. The patient reportedly does not see a dedicated liver specialist. 4. Acute kidney injury Potentially related to attempts at volume optimization. If the patient's creatinine worsens tomorrow may need to consider discontinuation of diuretics and consider nephrology consultation. 5. Advanced age and deconditioning/malnutrition and cachexia Complicates care, management, recovery and prognosis. Tube feeds will be continued. Physical therapy to work with patient. Recommend goals of care/CODE STATUS discussion with family. TIME: 40 minutes of critical care time, independent of procedures, was spent addressing the patient's acute respiratory failure, decompensated heart failure, troponin elevation, cirrhosis, respiratory alkalosis, review of all data and collaboration with the care team. ([id number]) Code Visit 9xxxx: [id number] Critical care first hour
--- NOTE | 2017-07-17 07:13 | PN_ITS ---
Subjective: The patient was seen and examined at the bedside this morning. Events from the last 24 hours have been reviewed. The patient is currently afebrile, hemodynamically stable and maintaining appropriate oxygen saturations with an FiO2 requirement of 35%. The patient is currently tolerating her spontaneous breathing trial. She remains on a continuous Lasix drip. She is overall net + 521 mL's for the admission. I was notified yesterday by the nursing staff that they did have a discussion with the patient's who did indicate that the patient is utilizing DMSO ( dimethyl sulfoxide), which is a solvent that is easily absorbed by the skin and sometimes used in treating conditions like shingles. Objective: The patient's most recent lab work, culture data and imaging studies have all been personally reviewed. Wound Gram stain revealed rare gram-positive cocci and gram-negative rods. Blood, urine and sputum culture pending. Surface echocardiogram revealed a severely dilated LV with an ejection fraction estimated to be 10-15%. There was also note of severe biatrial enlargement in the right ventricular systolic pressure estimated to be 43 mmHg. Surface echocardiogram from March 2016 revealed moderately severe global LV systolic dysfunction with an ejection fraction of 30%. Right ventricular systolic pressure was estimated to be 45 mmHg. There was also note of moderate to severe aortic valve stenosis. CT abdomen/pelvis revealed moderate bilateral pleural effusions, anasarca diverticulosis without evidence of inflammation. Plain film chest x-ray revealed pulmonary edema and large bilateral pleural effusions. General: No apparent distress, - - Remains intubated and mechanically ventilated. Currently tolerating CPAP without issue. HEENT: Atraumatic, PERRLA, Normocephalic Oral: No Gingival or Mucosal Lesions/ Ulcerations, - - Endotracheal and OG tube remain in place Neck: Supple, No Nodes, Trachea Midline Lungs: No rhonchi, No wheeze, Diminished, Rales Cardiovascular: Normal S1, Normal S2, Irregular Rate, Murmur, No rub noted, No Gallop Abdomen: Bowel Sounds Present, Soft, Non Tender Extremities: No clubbing, No cyanosis, Edema Skin: - - No significant change from previous. Temporal wasting present. Musculoskeletal: Cachexia, Muscle Wasting Lymphatic: No Cervical, Supraclavicular, or Inguinal Adenopathy Neurological: - - No focal deficits. Moves all extremities spontaneously. Alert and following commands appropriately. Vital Signs Temp Pulse Resp BP Pulse Ox 98.9 F 85 20 H 154/98 H 98 07/17/17 06:00 07/17/17 06:00 07/17/17 06:00 07/17/17 06:00 07/17/17 06:00 Oxygen Delivery Method CPAP Weight: 146 lb 6.191 oz Body Mass Index (BMI) 27.1 Intake and Output for Last 24 Hours 07/15/17 07/16/17 07/17/17 23:59 23:59 23:59 Intake Total 1349.5 / 1349.5 596.3 / 596.3 Output Total 887 / 887 537 / 537 Balance 462.5 / 462.5 59.3 / 59.3 Labs (Last 48 Hours) 07/16/17 07/16/17 07/16/17 01:40 02:50 04:55 WBC RBC Hgb Hct MCV MCH MCHC RDW RDW Differential Plt Count MPV Immature Gran % (Auto) Neut % (Auto) Lymph % (Auto) Ritchie % (Auto) Eos % (Auto) Baso % (Auto) Absolute Neuts (auto) Absolute Lymphs (auto) Total Counted PT INR APTT Specimen Type ART Sample Site L Radial pH 7.59 H Bicarbonate Actual 31.5 H POC Total CO2 32 Base Excess 10 H O2 Saturation 99 O2 % 60 ABG pCO2 32.5 L ABG pO2 103 H Leonel Test POS Respiration Rate 16 O2 Delivery Device Vent Minute Volume 6.00 Vent Mode A-C Tidal Volume 400 POC PEEP 5 Blood Gas Notified Whom HOSP MD Blood Gas Notified Time 450 Sodium Potassium Chloride Carbon Dioxide Anion Gap BUN Creatinine Estim Creat Clear Calc Est GFR (MDRD) Af Amer Est GFR (MDRD) Non-Af BUN/Creatinine Ratio Glucose Calcium Phosphorus Magnesium Total Bilirubin AST ALT Alkaline Phosphatase Troponin I 0.09 H Total Protein Albumin Globulin Albumin/Globulin Ratio Triglycerides Cholesterol LDL Cholesterol VLDL Cholesterol HDL Cholesterol Free T4 MRSA (PCR) Negative POC Glucose 07/16/17 07/16/17 07/16/17 05:53 06:10 06:10 WBC 9.6 RBC 4.23 Hgb 12.9 Hct 40.3 MCV 95.3 MCH 30.5 MCHC 32.0 RDW 15.1 H RDW Differential 52.1 H Plt Count 347 MPV 9.5 Immature Gran % (Auto) 0.100 Neut % (Auto) 84.9 H Lymph % (Auto) 5.0 L Ritchie % (Auto) 9.7 Eos % (Auto) 0.1 Baso % (Auto) 0.2 Absolute Neuts (auto) 8.1 H Absolute Lymphs (auto) 0.48 L Total Counted Not Reportable PT INR APTT Specimen Type Sample Site pH Bicarbonate Actual POC Total CO2 Base Excess O2 Saturation O2 % ABG pCO2 ABG pO2 Leonel Test Respiration Rate O2 Delivery Device Minute Volume Vent Mode Tidal Volume POC PEEP Blood Gas Notified Whom Blood Gas Notified Time Sodium 143 Potassium 4.3 Chloride 104 Carbon Dioxide 31.0 Anion Gap 8 BUN 19 H Creatinine 0.69 Estim Creat Clear Calc 34.42 Est GFR (MDRD) Af Amer 106 Est GFR (MDRD) Non-Af 88 BUN/Creatinine Ratio 27.6 H Glucose 127 H Calcium 7.9 L Phosphorus Magnesium Total Bilirubin 0.20 AST 33 ALT 16 Alkaline Phosphatase 48 Troponin I Total Protein 4.5 L Albumin 1.7 L Globulin 2.8 Albumin/Globulin Ratio 0.6 L Triglycerides 168 Cholesterol 164 LDL Cholesterol 91 VLDL Cholesterol 34 HDL Cholesterol 39 L Free T4 MRSA (PCR) POC Glucose 145 H 07/16/17 07/16/17 07/16/17 06:10 06:10 06:10 WBC RBC Hgb Hct MCV MCH MCHC RDW RDW Differential Plt Count MPV Immature Gran % (Auto) Neut % (Auto) Lymph % (Auto) Ritchie % (Auto) Eos % (Auto) Baso % (Auto) Absolute Neuts (auto) Absolute Lymphs (auto) Total Counted PT 21.5 H INR 1.9 APTT Specimen Type Sample Site pH Bicarbonate Actual POC Total CO2 Base Excess O2 Saturation O2 % ABG pCO2 ABG pO2 Leonel Test Respiration Rate O2 Delivery Device Minute Volume Vent Mode Tidal Volume POC PEEP Blood Gas Notified Whom Blood Gas Notified Time Sodium Potassium Chloride Carbon Dioxide Anion Gap BUN Creatinine Estim Creat Clear Calc Est GFR (MDRD) Af Amer Est GFR (MDRD) Non-Af BUN/Creatinine Ratio Glucose Calcium Phosphorus Magnesium Total Bilirubin AST ALT Alkaline Phosphatase Troponin I 0.13 H Total Protein Albumin Globulin Albumin/Globulin Ratio Triglycerides Cholesterol LDL Cholesterol VLDL Cholesterol HDL Cholesterol Free T4 1.35 MRSA (PCR) POC Glucose 07/16/17 07/16/17 07/16/17 08:10 11:50 13:06 WBC RBC Hgb Hct MCV MCH MCHC RDW RDW Differential Plt Count MPV Immature Gran % (Auto) Neut % (Auto) Lymph % (Auto) Ritchie % (Auto) Eos % (Auto) Baso % (Auto) Absolute Neuts (auto) Absolute Lymphs (auto) Total Counted PT INR APTT Specimen Type ART Sample Site R Radial pH 7.53 H Bicarbonate Actual 32.0 H POC Total CO2 33 Base Excess 9 H O2 Saturation 96 O2 % 40 ABG pCO2 38.3 ABG pO2 75 Leonel Test POS Respiration Rate 12 O2 Delivery Device Vent Minute Volume 8.00 Vent Mode A-C Tidal Volume 400 POC PEEP 5 Blood Gas Notified Whom ICU MD Blood Gas Notified Time 810 Sodium Potassium Chloride Carbon Dioxide Anion Gap BUN Creatinine Estim Creat Clear Calc Est GFR (MDRD) Af Amer Est GFR (MDRD) Non-Af BUN/Creatinine Ratio Glucose Calcium Phosphorus Magnesium Total Bilirubin AST ALT Alkaline Phosphatase Troponin I Total Protein Albumin Globulin Albumin/Globulin Ratio Triglycerides Cholesterol LDL Cholesterol VLDL Cholesterol HDL Cholesterol Free T4 MRSA (PCR) Negative POC Glucose 131 H 07/16/17 07/16/17 07/16/17 14:35 14:35 14:35 WBC RBC Hgb Hct MCV MCH MCHC RDW RDW Differential Plt Count MPV Immature Gran % (Auto) Neut % (Auto) Lymph % (Auto) Ritchie % (Auto) Eos % (Auto) Baso % (Auto) Absolute Neuts (auto) Absolute Lymphs (auto) Total Counted PT INR APTT Specimen Type Sample Site pH Bicarbonate Actual POC Total CO2 Base Excess O2 Saturation O2 % ABG pCO2 ABG pO2 Leonel Test Respiration Rate O2 Delivery Device Minute Volume Vent Mode Tidal Volume POC PEEP Blood Gas Notified Whom Blood Gas Notified Time Sodium 145 Potassium 4.4 Chloride 105 Carbon Dioxide 31.0 Anion Gap 9 BUN 21 H Creatinine 0.82 Estim Creat Clear Calc 41.98 Est GFR (MDRD) Af Amer 86 Est GFR (MDRD) Non-Af 71 BUN/Creatinine Ratio 25.5 H Glucose 121 H Calcium 7.4 L Phosphorus 4.2 Magnesium 2.4 Total Bilirubin AST ALT Alkaline Phosphatase Troponin I 0.11 H Total Protein Albumin Globulin Albumin/Globulin Ratio Triglycerides Cholesterol LDL Cholesterol VLDL Cholesterol HDL Cholesterol Free T4 MRSA (PCR) POC Glucose 07/16/17 07/16/17 07/16/17 16:35 18:38 22:30 WBC RBC Hgb Hct MCV MCH MCHC RDW RDW Differential Plt Count MPV Immature Gran % (Auto) Neut % (Auto) Lymph % (Auto) Ritchie % (Auto) Eos % (Auto) Baso % (Auto) Absolute Neuts (auto) Absolute Lymphs (auto) Total Counted PT INR APTT 64.2 H 122.2 H* Specimen Type Sample Site pH Bicarbonate Actual POC Total CO2 Base Excess O2 Saturation O2 % ABG pCO2 ABG pO2 Leonel Test Respiration Rate O2 Delivery Device Minute Volume Vent Mode Tidal Volume POC PEEP Blood Gas Notified Whom Blood Gas Notified Time Sodium Potassium Chloride Carbon Dioxide Anion Gap BUN Creatinine Estim Creat Clear Calc Est GFR (MDRD) Af Amer Est GFR (MDRD) Non-Af BUN/Creatinine Ratio Glucose Calcium Phosphorus Magnesium Total Bilirubin AST ALT Alkaline Phosphatase Troponin I Total Protein Albumin Globulin Albumin/Globulin Ratio Triglycerides Cholesterol LDL Cholesterol VLDL Cholesterol HDL Cholesterol Free T4 MRSA (PCR) POC Glucose 164 H 07/17/17 07/17/17 07/17/17 00:14 05:05 05:05 WBC 11.8 H RBC 4.37 Hgb 13.6 Hct 41.7 MCV 95.4 MCH 31.1 MCHC 32.6 RDW 15.3 H RDW Differential 52.0 H Plt Count 430 MPV 9.3 Immature Gran % (Auto) Neut % (Auto) Lymph % (Auto) Ritchie % (Auto) Eos % (Auto) Baso % (Auto) Absolute Neuts (auto) Absolute Lymphs (auto) Total Counted PT INR APTT Specimen Type Sample Site pH Bicarbonate Actual POC Total CO2 Base Excess O2 Saturation O2 % ABG pCO2 ABG pO2 Leonel Test Respiration Rate O2 Delivery Device Minute Volume Vent Mode Tidal Volume POC PEEP Blood Gas Notified Whom Blood Gas Notified Time Sodium 143 Potassium 3.7 Chloride 101 Carbon Dioxide 31.0 Anion Gap 11 BUN 27 H Creatinine 1.11 H Estim Creat Clear Calc 31.01 Est GFR (MDRD) Af Amer 61 Est GFR (MDRD) Non-Af 50 L BUN/Creatinine Ratio 24.3 H Glucose 173 H Calcium 7.7 L Phosphorus 5.0 H Magnesium 2.3 Total Bilirubin AST ALT Alkaline Phosphatase Troponin I Total Protein Albumin Globulin Albumin/Globulin Ratio Triglycerides Cholesterol LDL Cholesterol VLDL Cholesterol HDL Cholesterol Free T4 MRSA (PCR) POC Glucose 165 H 07/17/17 07/17/17 07/17/17 05:05 05:05 05:55 WBC RBC Hgb Hct MCV MCH MCHC RDW RDW Differential Plt Count MPV Immature Gran % (Auto) Neut % (Auto) Lymph % (Auto) Ritchie % (Auto) Eos % (Auto) Baso % (Auto) Absolute Neuts (auto) Absolute Lymphs (auto) Total Counted PT 31.9 H INR 3.1 APTT 56.4 H Specimen Type Sample Site pH Bicarbonate Actual POC Total CO2 Base Excess O2 Saturation O2 % ABG pCO2 ABG pO2 Leonel Test Respiration Rate O2 Delivery Device Minute Volume Vent Mode Tidal Volume POC PEEP Blood Gas Notified Whom Blood Gas Notified Time Sodium Potassium Chloride Carbon Dioxide Anion Gap BUN Creatinine Estim Creat Clear Calc Est GFR (MDRD) Af Amer Est GFR (MDRD) Non-Af BUN/Creatinine Ratio Glucose Calcium Phosphorus Magnesium Total Bilirubin AST ALT Alkaline Phosphatase Troponin I Total Protein Albumin Globulin Albumin/Globulin Ratio Triglycerides Cholesterol LDL Cholesterol VLDL Cholesterol HDL Cholesterol Free T4 MRSA (PCR) POC Glucose 194 H Microbiology 07/16/17 08:15 Wound - Head Gram Stain - Final Clinical Impression(s) from Imaging Studies Abdomen/Pelvis CT 07/15/17 23:00 IMPRESSION: Severe cardiomegaly persistent moderate bilateral effusions body anasarca ascites and a protrusive appearance of the abdomen with a diastases of the rectus muscle. Atherosclerotic disease of the aorta Diverticulosis no evidence of diverticulitis. There are stable stones involving the right renal pelvis which is thought to likely be vascular rather than part of the ureter. Electronically Signed: Zoila Marquis MD at 23:51 EDT Tel , Service support , Chest X-Ray 07/15/17 23:25 IMPRESSION: Large worsening bilateral effusions atelectasis consider CHF. Cardiomegaly cardiac valvular ring. Electronically Signed: Zoila Marquis MD at 23:59 EDT Tel , Service support , Chest X-Ray 07/16/17 00:11 IMPRESSION: Status post intubation and NG tube lines in satisfactory position. Persistent bilateral effusions atelectasis. Electronically Signed: Zoila Marquis MD at 1:22 EDT Tel , Service support , Medical Necessity - Tobacco Use Smoking Status: Never smoker Tobacco Use: Non-smoker Assessment/Plan RECOMMENDATIONS: 1. Continue attempts at volume optimization with diuretics. Will give a one- time dose of metolazone and also add dobutamine to encourage diuresis. 2. Obtain repeat plain film chest x-ray 3. Continue patient on CPAP today with plans to transition back to assist control overnight. 4. Would hold off on extubation until the patient can be further volume optimized 5. Continue antibiotics, pending finalized infectious workup 6. Continue tube feeds as tolerated 7. Discontinue heparin drip, given therapeutic INR 8. Continue Pepcid for GI prophylaxis 9. Recommend goals of care/CODE STATUS discussion with family. IMPRESSIONS: 1. Acute respiratory failure Likely secondary to decompensated heart failure. Agree with ongoing attempts at volume optimization with IV diuretics. In addition to the patient's Lasix drip, she will receive a one-time dose of metolazone and dobutamine will be started to encourage diuresis. The patient is currently tolerating CPAP. Would plan to continue the patient on spontaneous mode mechanical ventilation throughout the day and transition back to assist control overnight. Ideally, would like the patient to be volume optimized prior to consideration for extubation. Wean FiO2 to maintain oxygen saturations at or above 90%. Continue current sedation regimen with a goal to maintain a RASS of -1 to 1. Continue tube feeds as ordered. 2. Decompensated heart failure/troponin elevation/atrial fibrillation/status post mitral and tricuspid valve repair/aortic stenosis Cardiology is following. Continue IV Lasix infusion as ordered. We will start low-dose dobutamine today. Troponin elevation likely secondary to demand ischemia. The patient's heparin drip can be discontinued as her INR is now therapeutic. 3. Questionable PEREYRA cirrhosis The patient's cirrhosis history is not clear. The patient reportedly does not see a dedicated liver specialist. 4. Acute kidney injury Potentially related to attempts at volume optimization. If the patient's creatinine worsens tomorrow may need to consider discontinuation of diuretics and consider nephrology consultation. 5. Advanced age and deconditioning/malnutrition and cachexia Complicates care, management, recovery and prognosis. Tube feeds will be continued. Physical therapy to work with patient. Recommend goals of care/ CODE STATUS discussion with family. TIME: 40 minutes of critical care time, independent of procedures, was spent addressing the patient's acute respiratory failure, decompensated heart failure , troponin elevation, cirrhosis, respiratory alkalosis, review of all data and collaboration with the care team. ([id number]) Code Visit 9xxxx: [id number] Critical care first hour
--- NOTE | 2017-07-17 07:20 | PN_ITS ---
Subjective: Patient seen awake on the vent currently undergoing spontaneous breathing trial patient was apparently using DMSO (dimethyl sulfoxide), to treat zoster lesions Objective: GENERAL: Awake on the vent HEENT: Excoriation on the scalp with areas of dry vesicles NECK; supple, normal thyroid, CHEST: Diminished to auscultation bilaterally, HEART: Regular S1 S2, no audible murmurs ABDOMEN: soft, non-tender, normoactive bowel sounds, RECTAL: deferred EXTREMITIES: Trace edema no clubbing, no cyanosis. 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 SKIN:As described above, Vitals/I&O's: Vital Signs Temp Pulse Resp BP Pulse Ox 98.9 F 85 20 H 154/98 H 98 07/17/17 06:00 07/17/17 06:00 07/17/17 06:00 07/17/17 06:00 07/17/17 06:00 Oxygen Delivery Method CPAP Weight: 66.4 kg Body Mass Index (BMI) 27.1 Intake and Output for Last 24 Hours 07/15/17 07/16/17 07/17/17 23:59 23:59 23:59 Intake Total 1349.5 / 1349.5 596.3 / 596.3 Output Total 887 / 887 537 / 537 Balance 462.5 / 462.5 59.3 / 59.3 Microbiology Past 72 Hours 07/16/17 08:15 Wound - Head Gram Stain - Final Laboratory Results 07/16/17 06:10: Total Counted Not Reportable 07/16/17 06:10: Free T4 1.35 07/16/17 08:10: Specimen Type ART, Sample Site R Radial, pH 7.53 H, Bicarbonate Actual 32.0 H, POC Total CO2 33, Base Excess 9 H, O2 Saturation 96, O2 % 40, ABG pCO2 38.3, ABG pO2 75, Leonel Test POS, Respiration Rate 12, O2 Delivery Device Vent, Minute Volume 8.00, Vent Mode A-C, Tidal Volume 400, POC PEEP 5, Blood Gas Notified Whom ICU , Blood Gas Notified Time 810 07/16/17 11:50: MRSA (PCR) Negative 07/16/17 13:06: POC Glucose 131 H 07/16/17 14:35: Troponin I 0.11 H 07/16/17 14:35: Sodium 145, Potassium 4.4, Chloride 105, Carbon Dioxide 31.0, Anion Gap 9, BUN 21 H, Creatinine 0.82, Estim Creat Clear Calc 41.98, Est GFR ( MDRD) Af Amer 86, Est GFR (MDRD) Non-Af 71, BUN/Creatinine Ratio 25.5 H, Glucose 121 H, Calcium 7.4 L, Magnesium 2.4 07/16/17 14:35: Phosphorus 4.2 07/16/17 16:35: APTT 64.2 H 07/16/17 18:38: POC Glucose 164 H 07/16/17 22:30: APTT 122.2 H* 07/17/17 00:14: POC Glucose 165 H 07/17/17 05:05: WBC 11.8 H, RBC 4.37, Hgb 13.6, Hct 41.7, MCV 95.4, MCH 31.1, MCHC 32.6, RDW 15.3 H, RDW Differential 52.0 H, Plt Count 430, MPV 9.3 07/17/17 05:05: Sodium 143, Potassium 3.7, Chloride 101, Carbon Dioxide 31.0, Anion Gap 11, BUN 27 H, Creatinine 1.11 H, Estim Creat Clear Calc 31.01, Est GFR (MDRD) Af Amer 61, Est GFR (MDRD) Non-Af 50 L, BUN/Creatinine Ratio 24.3 H, Glucose 173 H, Calcium 7.7 L, Phosphorus 5.0 H, Magnesium 2.3 07/17/17 05:05: APTT 56.4 H 07/17/17 05:05: PT 31.9 H, INR 3.1 07/17/17 05:55: POC Glucose 194 H Current Medications Albuterol Sulfate (Ventolin Aerosols) 2.5 mg INHALATION Q4H.RT [facility] Last Admin: 07/17/17 06:48 Dose: 2.5 mg Chlorhexidine Gluconate () 15 ml PO BID [facility] Last Admin: 07/16/17 21:11 Dose: 15 mls Chlorhexidine Gluconate () 1 each TOPICAL DAILY [facility] Last Admin: 07/17/17 03:45 Dose: 1 each Dextrose (D50w Syringe) 0 gm IV X1 PRN; Protocol PRN Reason: Hypoglycemia Famotidine (Pepcid) 20 mg GT BID [facility] Last Admin: 07/16/17 21:12 Dose: 20 mg Glucagon () 1 mg IM .X1 PRN PRN Reason: Hypoglycemia Heparin Sodium (Porcine) () 0 units IV UD PRN PRN Reason: Protocol Propofol (Diprivan) 1,000 mg in 100 mls @ 1.905 mls/hr CONT INF .Q12H PAT; 5 MCG/KG/MIN PRN Reason: Protocol Last Admin: 07/16/17 18:25 Dose: 1.905 mls/hr Fentanyl () 100 mls @ 2.5 mls/hr IV .Q40H PAT PRN Reason: Protocol Last Admin: 07/16/17 21:05 Dose: 2.5 mls/hr Sodium Chloride () 250 mls @ 15 mls/hr IV .[id number] PRN PRN Reason: SALINE FLUSH Heparin Sodium/Dextrose () 25,000 units in 250 mls @ 10 mls/hr IV .Q25H PAT; As Directed PRN Reason: Protocol Last Admin: 07/16/17 09:45 Dose: 10 mls/hr Ceftriaxone Sodium 2 gm/ (Sodium Chloride) 50 mls @ 100 mls/hr IV Q24 [facility] Last Admin: 07/16/17 11:56 Dose: 100 mls/hr Enteral Nutritional Formula (Vital Af 1.2 Mickey Liquid) 1,000 mls @ 55 mls/hr GT .[id number] [facility] Last Admin: 07/17/17 06:15 Dose: Not Given Furosemide 500 mg/ (Miscellaneous Information) 50 mls @ 3 mls/hr CONT INF .[id number] [facility] PRN Reason: 30 MG/HR Last Admin: 07/16/17 23:03 Dose: 3 mls/hr Insulin Aspart (Novolog Flexpen (Bkc)) 0 units SC Q6 PAT PRN Reason: Protocol Last Admin: 07/17/17 05:56 Dose: 1 units Magnesium Hydroxide (Milk Of Magnesia) 30 ml PO DAILY PRN PRN PRN Reason: Constipation Ondansetron HCl (Zofran) 4 mg IV Q8H PRN PRN PRN Reason: NAUSEA Polyethylene Glycol (Miralax) 17 gm GT BID [facility] Last Admin: 07/16/17 21:12 Dose: 17 gm Promethazine HCl (Phenergan Iv) 12.5 mg IV Q6H PRN PRN PRN Reason: NAUSEA/VOMITING Senna/Docusate Sodium (Senokot-S, Jaja-Colace) 2 tablet GT BID [facility] Last Admin: 07/16/17 21:12 Dose: 2 tablet Sodium Chloride () 5 - 30 ml IV UD PRN PRN Reason: SALINE FLUSH Last Admin: 07/17/17 05:57 Dose: 30 ml Warfarin Sodium (Coumadin (Pbkc)) 3 mg GT DAILY@1700 [facility] Last Admin: 07/16/17 18:43 Dose: 3 mg Medical Necessity - Tobacco Use Smoking Status: Never smoker Tobacco Use: Non-smoker Assessment/Plan Patient is a 77 year old lady with past medical history sent on for CAD, systolic congestive heart failure cirrhosis of the liver secondary to nonalcoholic fatty liver disease A. fib who presented with abdominal pain and bloating, progressive shortness of breath. Patient apparently desaturated while is in the emergency department was intubated and subsequently sent to the intensive care unit for further management 1Acute Hypoxic and Hypercarbic Respiratory Failure secondary to Acute Decompensated Systolic CHF: Admitted to the intensive care unit currently on the vent management deferred to pulmonary medicine patient was started on Lasix drip 2. Valvular heart disease: She of mitral valve replacement with [facility], tricuspid valve repair. Patient is on systemic anticoagulation with Coumadin INR was subtherapeutic on admission catheter and heparin was within for INR to become therapeutic (2.5-3.5) patient also has history of severe aortic stenosis seen by cardiology recommendation is for possible consideration for TAVR down the line medically stable 3. CAD with previous CABG 4. Chronic A. fib 5. Hypertension-blood pressure controlled, 6. Dyslipidemia-history 7. 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 Recent varicella zoster involving the ophthalmic branch of the 8th cranial nerve patient has healing vesicles in various stage 9. Severe protein calorie malnutrition evidenced by hypoalbuminemia loss of flaccid muscle. Consult was placed to dietitian on admission 10. Diabetes mellitus type 2 managed with diet 11. DVT Prophylaxis: coumadin Code Visit Inpatient E&M: [id number] [facility] Hosp L3
--- NOTE | 2017-07-17 08:04 | RAD_ITS ---
STUDY: X-RAY CHEST REASON FOR EXAM: Female, 77 years old. Respiratory failure. Exacerbation of CHF. TECHNIQUE: Single AP portable view of the chest. COMPARISON: Comparison is made with prior study dated July 16, 2017 at 4:46 AM. FINDINGS: An endotracheal tube is seen at the level of the yomaira. This should be withdrawn approximately 2.5 cm. An orogastric tube is seen with the in the body of the stomach. EKG electrodes are seen. Once again, there is evidence of small bilateral pleural effusions with underlying bibasilar atelectasis and/or infiltration worse on the left side. This is superimposed on basilar congestion and CHF. There has been essentially no change. Sternal cerclage wires and vascular clips are present from a prior sternotomy and coronary artery bypass graft procedure (CABG). Normal mediastinum and alona. Normal visualized pulmonary arteries. There is atherosclerotic tortuosity of the aortic arch and descending thoracic aorta. There are diffuse degenerative changes of the visualized thoracic spine. There is degenerative osteoarthritis of the bilateral shoulders. There is no demonstrated abnormality of the visualized soft tissue structures of the upper abdomen. RAD/Chest 1 View (Portable) IMPRESSION: Essentially stable examination. The tip of the endotracheal tube is at the level of the yomaira. This should be withdrawn approximately 2.5 cm. Electronically Signed: Segundo Zamarripa MD at 9:24 EDT Tel [phone], Service support ,
[2017-07-17] MEDS: Polyethylene Glycol 3350 17 GM PACKET GT ×2 (09:01→22:19)
[2017-07-17] MEDS: metOLazone 5 MG Tablet PO (09:01)
[2017-07-17] MEDS: Chlorhexidine 15 ML PO ×2 (09:01→22:18)
[2017-07-17] MEDS: Senna/Docusate Sodium 1 Tablet 2 TABLET GT ×2 (09:01→22:19)
[2017-07-17] MEDS: Famotidine 20 MG Tablet GT ×2 (09:01→22:20)
--- NOTE | 2017-07-17 09:01 | PCM.PN.CARD ---
Subjectve: Patient remains intubated, awake, alert, INR therapeutic, heparin stopped. Urine output still okay, mild increase in creatinine. No plans for extubation today. Telemetry still shows atrial fibrillation with controlled ventricular response. Systolic pressures in the 140s. Objective: Vital Signs Temp Pulse Resp BP Pulse Ox 98.9 F 99 22 H 144/75 H 97 07/17/17 06:00 07/17/17 08:00 07/17/17 08:00 07/17/17 08:00 07/17/17 08:00 Oxygen Delivery Method Mechanical Ventilator Weight: 146 lb 6.191 oz Body Mass Index (BMI) 27.1 Intake and Output for Last 24 Hours 07/15/17 07/16/17 07/17/17 23:59 23:59 23:59 Intake Total 1349.5 / 1349.5 613.3 / 613.3 Output Total 887 / 887 662 / 662 Balance 462.5 / 462.5 -48.7 / -48.7 General: Awake, Alert, Oriented x 3 HEENT: PERRL, EOMI, Sclera Non Icteric Neck: Supple, Good ROM, No Lymph Node Enlargement Lungs: Clear to auscultation Cardiovascular: Irregular Rhythm, Normal S2, No Rubs, No Gallops, [place] Prosthetic S1, [place] Prosthetic S2 Murmur Murmur: Grade 3/6, Crescendo-Decrescendo Vascular: No Carotid Bruits, Normal Femoral Pulses, Normal Radial Pulses, Normal Dorsalis Pedal Pulse, Normal Posterior Tibial Pulses Abdomen: Bowel Sounds Present, Soft, Non Tender, No HSM, No Organomegaly Extremities: No Cyanosis, No Clubbing, No edema, Bilateral Edema +1 Neurological: No Focal Motor or Sensory Deficit 07/16/17 14:35: Troponin I 0.11 H 07/16/17 14:35: Sodium 145, Potassium 4.4, Chloride 105, Carbon Dioxide 31.0, Anion Gap 9, BUN 21 H, Creatinine 0.82, Est GFR (MDRD) Af Amer 86, Est GFR (MDRD) Non-Af 71, BUN/Creatinine Ratio 25.5 H, Glucose 121 H, Calcium 7.4 L, Magnesium 2.4 07/16/17 14:35: Phosphorus 4.2 07/16/17 16:35: APTT 64.2 H 07/16/17 22:30: APTT 122.2 H* 07/17/17 05:05: WBC 11.8 H, RBC 4.37, Hgb 13.6, Hct 41.7, MCV 95.4, MCH 31.1, MCHC 32.6, RDW 15.3 H, RDW Differential 52.0 H, Plt Count 430, MPV 9.3 07/17/17 05:05: Sodium 143, Potassium 3.7, Chloride 101, Carbon Dioxide 31.0, Anion Gap 11, BUN 27 H, Creatinine 1.11 H, Est GFR (MDRD) Af Amer 61, Est GFR (MDRD) Non-Af 50 L, BUN/Creatinine Ratio 24.3 H, Glucose 173 H, Calcium 7.7 L, Phosphorus 5.0 H, Magnesium 2.3 07/17/17 05:05: APTT 56.4 H 07/17/17 05:05: PT 31.9 H, INR 3.1 Rhythm: EKG: ECHO: LVEF of 10-15%, low output aortic valve opening, RVSP of 43 mmHg, possibly underestimated given her atrial fibrillation, severe left atrial enlargement, loculated left pleural effusion. Stress Test: Cardiac Cath: PCI: CT Surgery: Holter monitor: EPS: PPM: CXR: Chest CT Scan: Medical Necessity - Tobacco Use Smoking Status: Never smoker Tobacco Use: Non-smoker Assessment/Plan 1. Cardiomyopathy: The patient appears to have acute on chronic congestive heart failure most likely as a result of medical noncompliance as she has currently not been taking her Lasix out of concern for her kidney dysfunction. Her BUN and creatinine are within normal limits but her creatinine clearance is in the mid 30s, and she has had a slight increase in her creatinine to 1.11. She is currently on a Lasix drip, would recommend a Lasix drip until the patient's dry weight has been achieved and that her pleural effusions have improved to the point where she can be extubated. Her echocardiogram suggests that her left pleural effusion may be loculated so this may not improve. I would not recommend repeat catheterization at this time. Patient was on Coreg 3.125 mg p.o. twice daily, Coumadin, lisinopril 10 mg a day and Lasix 80 mg p.o. twice daily. The patient may require periodic metolazone 2.5 mg once or twice a week in order to maintain fluid status. We have given her metolazone 2.5 mg ?1 this morning, as her urine output has not been that impressive. Patient has undergone a repeat echocardiogram on this visit, and her LVEF is 10-15% with severe global hypokinesis, severe left atrial enlargement, RVSP of at least 43 mmHg, and aortic valve appears to have decreased opening due to poor cardiac output and not because of intrinsic valvular disease. Would not recommend evaluation for aortic stenosis at this time. Would recommend gentle diuresis to avoid acute renal failure with the hope of diuresing her at least 1-1.5 L per day. Would recommend holding her Coreg until her dry weight has been achieved. We will continue lisinopril 10 mg p.o. daily for afterload reduction In addition I would recommend a 1500 cc fluid restriction as well as as 2. Mitral valve replacement: The patient has a amplifier mechanic mitral valve and requires Coumadin therapy for an INR between 2.5 and 3.0. Patient has had epistasis in the past but appears to be tolerating Coumadin well. Agreed to discontinue heparin drip today as her INR is greater than 3.0. 3. Coronary artery disease: Her last catheterization was approximately 9 years ago which demonstrated mild nonobstructive coronary disease. Would not recommend repeat catheterization unless the patient is having difficulty coming off the ventilator due to undiagnosed ischemia. 4. Shingles: Continue supportive therapy. 5. Thank you very much for the opportunity to put dissipate in the cardiac care of your patient. Discussed with Dr. Montague. Code Visit Inpatient E&M: 89544 Subs Hosp L2
--- NOTE | 2017-07-17 09:07 | PN.CARD_ITS ---
Subjectve: Patient remains intubated, awake, alert, INR therapeutic, heparin stopped. Urine output still okay, mild increase in creatinine. No plans for extubation today. Telemetry still shows atrial fibrillation with controlled ventricular response. Systolic pressures in the 140s. Objective: Vital Signs Temp Pulse Resp BP Pulse Ox 98.9 F 99 22 H 144/75 H 97 07/17/17 06:00 07/17/17 08:00 07/17/17 08:00 07/17/17 08:00 07/17/17 08:00 Oxygen Delivery Method Mechanical Ventilator Weight: 146 lb 6.191 oz Body Mass Index (BMI) 27.1 Intake and Output for Last 24 Hours 07/15/17 07/16/17 07/17/17 23:59 23:59 23:59 Intake Total 1349.5 / 1349.5 613.3 / 613.3 Output Total 887 / 887 662 / 662 Balance 462.5 / 462.5 -48.7 / -48.7 General: Awake, Alert, Oriented x 3 HEENT: PERRL, EOMI, Sclera Non Icteric Neck: Supple, Good ROM, No Lymph Node Enlargement Lungs: Clear to auscultation Cardiovascular: Irregular Rhythm, Normal S2, No Rubs, No Gallops, [place] Prosthetic S1, [place] Prosthetic S2 Murmur Murmur: Grade 3/6, Crescendo-Decrescendo Vascular: No Carotid Bruits, Normal Femoral Pulses, Normal Radial Pulses, Normal Dorsalis Pedal Pulse, Normal Posterior Tibial Pulses Abdomen: Bowel Sounds Present, Soft, Non Tender, No HSM, No Organomegaly Extremities: No Cyanosis, No Clubbing, No edema, Bilateral Edema +1 Neurological: No Focal Motor or Sensory Deficit 07/16/17 14:35: Troponin I 0.11 H 07/16/17 14:35: Sodium 145, Potassium 4.4, Chloride 105, Carbon Dioxide 31.0, Anion Gap 9, BUN 21 H, Creatinine 0.82, Est GFR (MDRD) Af Amer 86, Est GFR (MDRD ) Non-Af 71, BUN/Creatinine Ratio 25.5 H, Glucose 121 H, Calcium 7.4 L, Magnesium 2.4 07/16/17 14:35: Phosphorus 4.2 07/16/17 16:35: APTT 64.2 H 07/16/17 22:30: APTT 122.2 H* 07/17/17 05:05: WBC 11.8 H, RBC 4.37, Hgb 13.6, Hct 41.7, MCV 95.4, MCH 31.1, MCHC 32.6, RDW 15.3 H, RDW Differential 52.0 H, Plt Count 430, MPV 9.3 07/17/17 05:05: Sodium 143, Potassium 3.7, Chloride 101, Carbon Dioxide 31.0, Anion Gap 11, BUN 27 H, Creatinine 1.11 H, Est GFR (MDRD) Af Amer 61, Est GFR ( MDRD) Non-Af 50 L, BUN/Creatinine Ratio 24.3 H, Glucose 173 H, Calcium 7.7 L, Phosphorus 5.0 H, Magnesium 2.3 07/17/17 05:05: APTT 56.4 H 07/17/17 05:05: PT 31.9 H, INR 3.1 Rhythm: EKG: ECHO: LVEF of 10-15%, low output aortic valve opening, RVSP of 43 mmHg, possibly underestimated given her atrial fibrillation, severe left atrial enlargement, loculated left pleural effusion. Stress Test: Cardiac Cath: PCI: CT Surgery: Holter monitor: EPS: PPM: CXR: Chest CT Scan: Medical Necessity - Tobacco Use Smoking Status: Never smoker Tobacco Use: Non-smoker Assessment/Plan 1. Cardiomyopathy: The patient appears to have acute on chronic congestive heart failure most likely as a result of medical noncompliance as she has currently not been taking her Lasix out of concern for her kidney dysfunction. Her BUN and creatinine are within normal limits but her creatinine clearance is in the mid 30s, and she has had a slight increase in her creatinine to 1.11. She is currently on a Lasix drip, would recommend a Lasix drip until the patient 's dry weight has been achieved and that her pleural effusions have improved to the point where she can be extubated. Her echocardiogram suggests that her left pleural effusion may be loculated so this may not improve. I would not recommend repeat catheterization at this time. Patient was on Coreg 3.125 mg p.o. twice daily, Coumadin, lisinopril 10 mg a day and Lasix 80 mg p.o. twice daily. The patient may require periodic metolazone 2.5 mg once or twice a week in order to maintain fluid status. We have given her metolazone 2.5 mg ?1 this morning, as her urine output has not been that impressive. Patient has undergone a repeat echocardiogram on this visit, and her LVEF is 10- 15% with severe global hypokinesis, severe left atrial enlargement, RVSP of at least 43 mmHg, and aortic valve appears to have decreased opening due to poor cardiac output and not because of intrinsic valvular disease. Would not recommend evaluation for aortic stenosis at this time. Would recommend gentle diuresis to avoid acute renal failure with the hope of diuresing her at least 1-1.5 L per day. Would recommend holding her Coreg until her dry weight has been achieved. We will continue lisinopril 10 mg p.o. daily for afterload reduction In addition I would recommend a 1500 cc fluid restriction as well as as 2. Mitral valve replacement: The patient has a range mechanic mitral valve and requires Coumadin therapy for an INR between 2.5 and 3.0. Patient has had epistasis in the past but appears to be tolerating Coumadin well. Agreed to discontinue heparin drip today as her INR is greater than 3.0. 3. Coronary artery disease: Her last catheterization was approximately 9 years ago which demonstrated mild nonobstructive coronary disease. Would not recommend repeat catheterization unless the patient is having difficulty coming off the ventilator due to undiagnosed ischemia. 4. Shingles: Continue supportive therapy. 5. Thank you very much for the opportunity to put dissipate in the cardiac care of your patient. Discussed with Dr. Montague. Code Visit Inpatient E&M: 14206 Subs Hosp L2
[2017-07-17 11:40] LABS: Bedside Glucose 190 mg/dL (70-110)
--- NOTE | 2017-07-17 12:34 | CASEMGMT ---
Dr. Montague and SW spoke w/ and two daughter in laws at the bedside in regard to code status. Pt's seems to have limited understanding regarding this, even with physician's explanation. Daughter in laws state there are 8 children, they will need to speak w/pt's regarding what they would like to do in regard to code status. It is this SW's understanding from family that they have not had any type of discussion in regard to code status, or what to do in the event pt became ill. SW encouraged family to speak w/the children, and let this SW know if they have any questions. One daughter in law did ask about a living will. SW explained the pt would have to initiate a living will and she cannot do this right now. SW explained that code status can be addressed on a living will, but that there is a separate document for code status that doctor can complete based on the family's or pt's wishes. Daughter in law states understanding. SW remains available for further discussion and family support. CLAUDE Rodriguez, HEALTH CLAIMS EXAMINER
--- NOTE | 2017-07-17 16:31 | CHAPLAIN ---
Type of Pastoral Visit _x__ Initial Visit ___ Follow-up Visit ___ On-call Visit ___ General Patient Visit ___ Spiritual Assessment ___ Family Conference ___ Bereavement ___ Rapid Response ___ Code Blue ___ Other (describe below) Pastoral Care Referral From ___ Patient _x__ Family _x__ Nurse ___ Physician ___ Television Producer ___ Exercise Equipment Specialist ___ Other (describe below) Sacrament/Intervention _x__ Active listening ___ Anointing ___ Pentecostalism ___ Bereavement ___ Communion ___ Eva exploration ___ ___ Life review _x__ Prayer ___ Reconciliation ___ Sacrament of Sick _x__ Supportive presence ___ Wedding ___ Other (describe below) Pastoral Comments patient was sitting up in chair and soundly asleep; spoke with spouse; offered presence and support; spouse welcomed prayer; spouse says that many family members have been available
[2017-07-17 17:46] LABS: Bedside Glucose 171 mg/dL (70-110)
[2017-07-18] VITALS (38 sets, daily range): BP systolic 114–141; BP diastolic 42–76; PULSE 61–81; RESP 10–30; TEMP 36.7–37.8; O2SAT 91–100
[2017-07-18 01:06] LABS: Bedside Glucose 165 mg/dL (70-110)
[2017-07-18] MEDS: Albuterol 2.5 MG/3 ML VIAL.NEB. INHALATION ×3 (03:17→19:15)
[2017-07-18 05:05] LABS: Hematocrit 37.3 % (37-47); Hemoglobin 12.3 g/dl (12.0-15.0); Mean Corpuscular Hgb 30.9 pg (27.0-32.0); Mean Corpuscular Volume 93.7 fL (81-99); Mean Platelet Vol. 9.6 fl (6.2-12.0); Platelet Count 351 K/mm3 (150-450); RBC Distribution Width CV 15.2 % (11.6-14.6); RBC Distribution Width SD 50.4 fl (35.1-43.9); Red Blood Count 3.98 M/mm3 (4.2-5.4); White Blood Count 10.3 K/mm3 (4.4-11.0)
[2017-07-18 05:11] LABS: Scan Indicated on CBC? Y/N NO
[2017-07-18 05:15] LABS: Prothrombin Time (Protime)PT. 40.9 SECONDS (11.7-14.9)
[2017-07-18 05:20] LABS: International Normalized Ratio 4.2
[2017-07-18 05:34] LABS: Anion Gap 11 (5-15); BUN 37 mg/dL (7-18); BUN/Creat Ratio 35.9 RATIO (10-20); Calcium,Total 7.6 mg/dL (8.5-10.1); Chloride 98 mmol/L (98-107); Creatinine, Serum 1.03 mg/dL (0.55-1.02); EST Glomerular Filtration Rate 55 mL/min (>60); Est Glom Filt Rate - Afr Amer 66 mL/min (>60); Estimated Creatinine Clearance 33.42 ml/min; Glucose 150 mg/dL (74-106); Magnesium 2.4 mg/dL (1.6-2.6); Potassium 2.1 mmol/L (3.5-5.1); Sodium Level 144 mmol/L (136-145)
[2017-07-18] MEDS: CHLORHEXIDINE GLUC 2% CLOTH 1 EACH TOWELETTE TOPICAL (06:20)
[2017-07-18 06:41] LABS: Bedside Glucose 153 mg/dL (70-110)
--- NOTE | 2017-07-18 07:33 | PN_ITS ---
Subjective: The patient was seen and examined at the bedside this morning. Events from the last 24 hours have been reviewed. The patient was febrile overnight with a T- max of 100.1?F. She is currently hemodynamically stable and doing well on a CPAP trial with an FiO2 requirement of 35%. The patient was overall net -2.1 L yesterday. For the admission, she is now 1.7 L negative in total. INR is supratherapeutic at 4.2. Potassium is low at 2.1. Creatinine is stable. The patient is alert, cooperative and following commands appropriately. She denies abdominal pain. Objective: The patient's most recent lab work, culture data and imaging studies have all been personally reviewed. Wound Gram stain revealed rare gram-positive cocci and gram-negative rods. Blood, urine and sputum culture pending. Surface echocardiogram revealed a severely dilated LV with an ejection fraction estimated to be 10-15%. There was also note of severe biatrial enlargement in the right ventricular systolic pressure estimated to be 43 mmHg. Surface echocardiogram from March 2016 revealed moderately severe global LV systolic dysfunction with an ejection fraction of 30%. Right ventricular systolic pressure was estimated to be 45 mmHg. There was also note of moderate to severe aortic valve stenosis. CT abdomen/pelvis revealed moderate bilateral pleural effusions, anasarca diverticulosis without evidence of inflammation. Plain film chest x-ray revealed pulmonary edema and large bilateral pleural effusions. General: - - Remains intubated and mechanically ventilated. Currently tolerating CPAP mode mechanical ventilation. HEENT: Atraumatic, PERRLA, Normocephalic Oral: No Gingival or Mucosal Lesions/ Ulcerations, - - Edentulous. Endotracheal and OG tubes in place Neck: Supple, No Nodes, Trachea Midline Lungs: No rhonchi, No wheeze, No rales, Diminished Cardiovascular: Normal S1, Normal S2, Irregular Rate, Murmur, No rub noted, No Gallop Abdomen: Bowel Sounds Present, Soft, Non Tender Extremities: No clubbing, No cyanosis, - - Bilateral lower extremity pitting edema present Skin: - - No significant change from previous. Temporal wasting present. Musculoskeletal: Cachexia, Muscle Wasting Lymphatic: No Cervical, Supraclavicular, or Inguinal Adenopathy Neurological: - - No focal neurological deficits. Moves all extremities spontaneously. Alert and following commands appropriately. Vital Signs Temp Pulse Resp BP Pulse Ox 99.7 F H 70 19 H 129/63 H 99 07/18/17 07:00 07/18/17 07:00 07/18/17 07:00 07/18/17 07:00 07/18/17 07:00 Oxygen Delivery Method CPAP Weight: 140 lb 6.951 oz Body Mass Index (BMI) 27.1 Intake and Output for Last 24 Hours 07/16/17 07/17/17 07/18/17 23:59 23:59 23:59 Intake Total 1349.5 / 1349.5 1814.3 / 1814.3 961 / 961 Output Total 887 / 887 3997 / 3997 978 / 978 Balance 462.5 / 462.5 -2182.7 / -2182.7 -17 / -17 Labs (Last 48 Hours) 07/16/17 07/16/17 07/16/17 06:10 06:10 08:10 WBC RBC Hgb Hct MCV MCH MCHC RDW RDW Differential Plt Count MPV Total Counted Not Reportable PT INR APTT Specimen Type ART Sample Site R Radial pH 7.53 H Bicarbonate Actual 32.0 H POC Total CO2 33 Base Excess 9 H O2 Saturation 96 O2 % 40 ABG pCO2 38.3 ABG pO2 75 Leonel Test POS Respiration Rate 12 O2 Delivery Device Vent Minute Volume 8.00 Vent Mode A-C Tidal Volume 400 POC PEEP 5 Blood Gas Notified Whom ICU MD Blood Gas Notified Time 810 Sodium Potassium Chloride Carbon Dioxide Anion Gap BUN Creatinine Estim Creat Clear Calc Est GFR (MDRD) Af Amer Est GFR (MDRD) Non-Af BUN/Creatinine Ratio Glucose Calcium Phosphorus Magnesium Troponin I Free T4 1.35 MRSA (PCR) POC Glucose 07/16/17 07/16/17 07/16/17 11:50 13:06 14:35 WBC RBC Hgb Hct MCV MCH MCHC RDW RDW Differential Plt Count MPV Total Counted PT INR APTT Specimen Type Sample Site pH Bicarbonate Actual POC Total CO2 Base Excess O2 Saturation O2 % ABG pCO2 ABG pO2 Leonel Test Respiration Rate O2 Delivery Device Minute Volume Vent Mode Tidal Volume POC PEEP Blood Gas Notified Whom Blood Gas Notified Time Sodium Potassium Chloride Carbon Dioxide Anion Gap BUN Creatinine Estim Creat Clear Calc Est GFR (MDRD) Af Amer Est GFR (MDRD) Non-Af BUN/Creatinine Ratio Glucose Calcium Phosphorus Magnesium Troponin I 0.11 H Free T4 MRSA (PCR) Negative POC Glucose 131 H 07/16/17 07/16/17 07/16/17 14:35 14:35 16:35 WBC RBC Hgb Hct MCV MCH MCHC RDW RDW Differential Plt Count MPV Total Counted PT INR APTT 64.2 H Specimen Type Sample Site pH Bicarbonate Actual POC Total CO2 Base Excess O2 Saturation O2 % ABG pCO2 ABG pO2 Leonel Test Respiration Rate O2 Delivery Device Minute Volume Vent Mode Tidal Volume POC PEEP Blood Gas Notified Whom Blood Gas Notified Time Sodium 145 Potassium 4.4 Chloride 105 Carbon Dioxide 31.0 Anion Gap 9 BUN 21 H Creatinine 0.82 Estim Creat Clear Calc 41.98 Est GFR (MDRD) Af Amer 86 Est GFR (MDRD) Non-Af 71 BUN/Creatinine Ratio 25.5 H Glucose 121 H Calcium 7.4 L Phosphorus 4.2 Magnesium 2.4 Troponin I Free T4 MRSA (PCR) POC Glucose 07/16/17 07/16/17 07/17/17 18:38 22:30 00:14 WBC RBC Hgb Hct MCV MCH MCHC RDW RDW Differential Plt Count MPV Total Counted PT INR APTT 122.2 H* Specimen Type Sample Site pH Bicarbonate Actual POC Total CO2 Base Excess O2 Saturation O2 % ABG pCO2 ABG pO2 Leonel Test Respiration Rate O2 Delivery Device Minute Volume Vent Mode Tidal Volume POC PEEP Blood Gas Notified Whom Blood Gas Notified Time Sodium Potassium Chloride Carbon Dioxide Anion Gap BUN Creatinine Estim Creat Clear Calc Est GFR (MDRD) Af Amer Est GFR (MDRD) Non-Af BUN/Creatinine Ratio Glucose Calcium Phosphorus Magnesium Troponin I Free T4 MRSA (PCR) POC Glucose 164 H 165 H 07/17/17 07/17/17 07/17/17 05:05 05:05 05:05 WBC 11.8 H RBC 4.37 Hgb 13.6 Hct 41.7 MCV 95.4 MCH 31.1 MCHC 32.6 RDW 15.3 H RDW Differential 52.0 H Plt Count 430 MPV 9.3 Total Counted PT INR APTT 56.4 H Specimen Type Sample Site pH Bicarbonate Actual POC Total CO2 Base Excess O2 Saturation O2 % ABG pCO2 ABG pO2 Leonel Test Respiration Rate O2 Delivery Device Minute Volume Vent Mode Tidal Volume POC PEEP Blood Gas Notified Whom Blood Gas Notified Time Sodium 143 Potassium 3.7 Chloride 101 Carbon Dioxide 31.0 Anion Gap 11 BUN 27 H Creatinine 1.11 H Estim Creat Clear Calc 31.01 Est GFR (MDRD) Af Amer 61 Est GFR (MDRD) Non-Af 50 L BUN/Creatinine Ratio 24.3 H Glucose 173 H Calcium 7.7 L Phosphorus 5.0 H Magnesium 2.3 Troponin I Free T4 MRSA (PCR) POC Glucose 07/17/17 07/17/17 07/17/17 05:05 05:55 11:34 WBC RBC Hgb Hct MCV MCH MCHC RDW RDW Differential Plt Count MPV Total Counted PT 31.9 H INR 3.1 APTT Specimen Type Sample Site pH Bicarbonate Actual POC Total CO2 Base Excess O2 Saturation O2 % ABG pCO2 ABG pO2 Leonel Test Respiration Rate O2 Delivery Device Minute Volume Vent Mode Tidal Volume POC PEEP Blood Gas Notified Whom Blood Gas Notified Time Sodium Potassium Chloride Carbon Dioxide Anion Gap BUN Creatinine Estim Creat Clear Calc Est GFR (MDRD) Af Amer Est GFR (MDRD) Non-Af BUN/Creatinine Ratio Glucose Calcium Phosphorus Magnesium Troponin I Free T4 MRSA (PCR) POC Glucose 194 H 190 H 07/17/17 07/18/17 07/18/17 17:38 00:52 05:00 WBC 10.3 RBC 3.98 L Hgb 12.3 Hct 37.3 MCV 93.7 MCH 30.9 MCHC 33.0 RDW 15.2 H RDW Differential 50.4 H Plt Count 351 MPV 9.6 Total Counted PT INR APTT Specimen Type Sample Site pH Bicarbonate Actual POC Total CO2 Base Excess O2 Saturation O2 % ABG pCO2 ABG pO2 Leonel Test Respiration Rate O2 Delivery Device Minute Volume Vent Mode Tidal Volume POC PEEP Blood Gas Notified Whom Blood Gas Notified Time Sodium Potassium Chloride Carbon Dioxide Anion Gap BUN Creatinine Estim Creat Clear Calc Est GFR (MDRD) Af Amer Est GFR (MDRD) Non-Af BUN/Creatinine Ratio Glucose Calcium Phosphorus Magnesium Troponin I Free T4 MRSA (PCR) POC Glucose 171 H 165 H 07/18/17 07/18/17 07/18/17 05:00 05:00 06:29 WBC RBC Hgb Hct MCV MCH MCHC RDW RDW Differential Plt Count MPV Total Counted PT 40.9 H INR 4.2 H* APTT Specimen Type Sample Site pH Bicarbonate Actual POC Total CO2 Base Excess O2 Saturation O2 % ABG pCO2 ABG pO2 Leonel Test Respiration Rate O2 Delivery Device Minute Volume Vent Mode Tidal Volume POC PEEP Blood Gas Notified Whom Blood Gas Notified Time Sodium 144 Potassium 2.1 L* Chloride 98 Carbon Dioxide 35.0 H Anion Gap 11 BUN 37 H Creatinine 1.03 H Estim Creat Clear Calc 33.42 Est GFR (MDRD) Af Amer 66 Est GFR (MDRD) Non-Af 55 L BUN/Creatinine Ratio 35.9 H Glucose 150 H Calcium 7.6 L Phosphorus Magnesium 2.4 Troponin I Free T4 MRSA (PCR) POC Glucose 153 H Microbiology 07/16/17 08:15 Wound - Head Gram Stain - Final 07/16/17 08:15 Wound - Head Wound Culture - Preliminary Gram positive organism Gram positive organism#2 07/16/17 14:35 Sputum, Induced/Lukens Gram Stain - Final 07/16/17 14:35 Sputum, Induced/Lukens Respiratory Culture - Preliminary 07/16/17 11:50 Urine Catheter - Grady Urine Culture - Preliminary Culture exhibits no growth. Clinical Impression(s) from Imaging Studies Abdomen/Pelvis CT 07/15/17 23:00 IMPRESSION: Severe cardiomegaly persistent moderate bilateral effusions body anasarca ascites and a protrusive appearance of the abdomen with a diastases of the rectus muscle. Atherosclerotic disease of the aorta Diverticulosis no evidence of diverticulitis. There are stable stones involving the right renal pelvis which is thought to likely be vascular rather than part of the ureter. Electronically Signed: Zoila Marquis MD at 23:51 EDT Tel , Service support , Chest X-Ray 07/15/17 23:25 IMPRESSION: Large worsening bilateral effusions atelectasis consider CHF. Cardiomegaly cardiac valvular ring. Electronically Signed: Zoila Marquis MD at 23:59 EDT Tel , Service support , Chest X-Ray 07/16/17 00:11 IMPRESSION: Status post intubation and NG tube lines in satisfactory position. Persistent bilateral effusions atelectasis. Electronically Signed: Zoila Marquis MD at 1:22 EDT Tel , Service support , Chest X-Ray 07/16/17 05:55 IMPRESSION: Consider congestive heart failure unchanged. Support lines and tubes in their expected locations. Endotracheal tube tip 1.5 cm above the yomaira with the chin down. Electronically Signed: Frederick Suarez MD at 5:18 EDT , Service support , Chest X-Ray 07/17/17 08:04 IMPRESSION: Essentially stable examination. The tip of the endotracheal tube is at the level of the yomaira. This should be withdrawn approximately 2.5 cm. Electronically Signed: Segundo Zamarripa MD at 9:24 EDT Tel [phone], Service support , Medical Necessity - Tobacco Use Smoking Status: Never smoker Tobacco Use: Non-smoker Assessment/Plan RECOMMENDATIONS: 1. The patient is appropriate for a trial of extubation this morning. 2. Will discuss with cardiology, however, would favor discontinuation of dobutamine and continuous IV Lasix drip. 3. Obtain formal speech therapy evaluation 4. Continue antibiotics 5. Hold Coumadin given supratherapeutic INR 6. Aggressive electrolyte repletion. 7. Physical therapy evaluation. Mobilize patient as tolerated 8. Encourage incentive spirometer use 9. Clarify goals of care/CODE STATUS with family. IMPRESSIONS: 1. Acute respiratory failure Likely secondary to decompensated heart failure. The patient has diuresed well with continuous IV Lasix infusion and dobutamine drip. These can likely be discontinued today. The patient did pass her spontaneous breathing trial and is currently a candidate to proceed with extubation from mechanical ventilation. Will discuss with cardiology regarding the patient's IV Lasix regimen. Wean supplemental oxygen to maintain saturations at or above 90%. Encourage incentive spirometer use and mobilize patient as tolerated. Recommend formal speech therapy evaluation once extubated, prior to initiation of a diet. 2. Decompensated heart failure/troponin elevation/atrial fibrillation/status post mitral and tricuspid valve repair/aortic stenosis Cardiology is following. Continue current medical management as noted above. We will plan to hold the patient's p.m. Coumadin dose, given supratherapeutic INR. 3. Questionable PEREYRA cirrhosis The patient's cirrhosis history is not clear. The patient reportedly does not see a dedicated liver specialist. 4. Acute kidney injury Potentially related to attempts at volume optimization. Creatinine remains stable. Will continue to monitor. No indication for renal replacement therapy at this time. 5. Hypokalemia Aggressive electrolyte repletion as indicated. 6. Advanced age and deconditioning/malnutrition and cachexia Complicates care, management, recovery and prognosis. Physical therapy to work with patient. Ongoing goals of care/CODE STATUS discussion with family. TIME: 40 minutes of critical care time, independent of procedures, was spent addressing the patient's acute respiratory failure, decompensated heart failure , troponin elevation, cirrhosis, respiratory alkalosis, review of all data and collaboration with the care team. ([id number]) Code Visit 9xxxx: [id number] Critical care first hour
--- NOTE | 2017-07-18 08:08 | PN_ITS ---
Subjective: . Patient seen remains on the vent. Diagnostic workup is significant for potassium of 2.5. Case was discussed with Dr. Montague with intensive care plan is for patient to be weaned off the vent this a.m. the echo obtained the day prior demonstrated ejection fraction of 10-15% with global hypokinesis Objective: GENERAL: Awake on the vent HEENT: Excoriation on the scalp with areas of dry vesicles NECK; supple, normal thyroid, CHEST: Diminished to auscultation bilaterally, HEART: Regular S1 S2, no audible murmurs ABDOMEN: soft, non-tender, normoactive bowel sounds, RECTAL: deferred EXTREMITIES: Trace edema no clubbing, no cyanosis. [employer]: Awake on the vent SKIN:As described above, Vitals/I&O's: Vital Signs Temp Pulse Resp BP Pulse Ox 99.7 F H 70 19 H 129/63 H 99 07/18/17 07:00 07/18/17 07:00 07/18/17 07:00 07/18/17 07:00 07/18/17 07:00 Oxygen Delivery Method CPAP Weight: 63.7 kg Body Mass Index (BMI) 27.1 Intake and Output for Last 24 Hours 07/16/17 07/17/17 07/18/17 23:59 23:59 23:59 Intake Total 1349.5 / 1349.5 1814.3 / 1814.3 961 / 961 Output Total 887 / 887 3997 / 3997 978 / 978 Balance 462.5 / 462.5 -2182.7 / -2182.7 -17 / -17 Microbiology Past 72 Hours 07/16/17 08:15 Wound - Head Gram Stain - Final 07/16/17 08:15 Wound - Head Wound Culture - Preliminary Gram positive organism Gram positive organism#2 07/16/17 14:35 Sputum, Induced/Lukens Gram Stain - Final 07/16/17 14:35 Sputum, Induced/Lukens Respiratory Culture - Preliminary 07/16/17 11:50 Urine Catheter - Grady Urine Culture - Preliminary Culture exhibits no growth. Laboratory Results 07/17/17 11:34: POC Glucose 190 H 07/17/17 17:38: POC Glucose 171 H 07/18/17 00:52: POC Glucose 165 H 07/18/17 05:00: WBC 10.3, RBC 3.98 L, Hgb 12.3, Hct 37.3, MCV 93.7, MCH 30.9, MCHC 33.0, RDW 15.2 H, RDW Differential 50.4 H, Plt Count 351, MPV 9.6 07/18/17 05:00: PT 40.9 H, INR 4.2 H* 07/18/17 05:00: Sodium 144, Potassium 2.1 L*, Chloride 98, Carbon Dioxide 35.0 H , Anion Gap 11, BUN 37 H, Creatinine 1.03 H, Estim Creat Clear Calc 33.42, Est GFR (MDRD) Af Amer 66, Est GFR (MDRD) Non-Af 55 L, BUN/Creatinine Ratio 35.9 H, Glucose 150 H, Calcium 7.6 L, Magnesium 2.4 07/18/17 06:29: POC Glucose 153 H Current Medications Albuterol Sulfate (Ventolin Aerosols) 2.5 mg INHALATION Q4H.RT [facility] Last Admin: 07/18/17 06:36 Dose: 2.5 mg Chlorhexidine Gluconate () 15 ml PO BID [facility] Last Admin: 07/17/17 22:18 Dose: 15 mls Chlorhexidine Gluconate () 1 each TOPICAL DAILY [facility] Last Admin: 07/18/17 06:20 Dose: 1 each Dextrose (D50w Syringe) 0 gm IV X1 PRN; Protocol PRN Reason: Hypoglycemia Famotidine (Pepcid) 20 mg GT BID [facility] Last Admin: 07/17/17 22:20 Dose: 20 mg Glucagon () 1 mg IM .X1 PRN PRN Reason: Hypoglycemia Propofol (Diprivan) 1,000 mg in 100 mls @ 1.905 mls/hr CONT INF .Q12H [facility]; 5 MCG/KG/MIN PRN Reason: Protocol Last Admin: 07/18/17 03:36 Dose: Not Given Fentanyl () 100 mls @ 2.5 mls/hr IV .Q40H PAT PRN Reason: Protocol Last Admin: 07/16/17 21:05 Dose: 2.5 mls/hr Sodium Chloride () 250 mls @ 15 mls/hr IV .[id number] PRN PRN Reason: SALINE FLUSH Ceftriaxone Sodium 2 gm/ (Sodium Chloride) 50 mls @ 100 mls/hr IV Q24 [facility] Last Admin: 07/17/17 09:01 Dose: 100 mls/hr Enteral Nutritional Formula (Vital Af 1.2 Mickey Liquid) 1,000 mls @ 55 mls/hr GT .[id number] [facility] Last Admin: 07/18/17 03:36 Dose: Not Given Furosemide 500 mg/ (Miscellaneous Information) 50 mls @ 3 mls/hr CONT INF .[id number] [facility] PRN Reason: 30 MG/HR Last Admin: 07/17/17 17:26 Dose: 3 mls/hr Dobutamine HCl/Dextrose 500 mg (/ N/A) 250 mls @ 4.98 mls/hr IV .[id number] [facility] PRN Reason: 2.5 MCG/KG/MIN Last Admin: 07/17/17 09:41 Dose: 4.98 mls/hr Potassium Chloride 40 meq/ (Dextrose) 520 mls @ 130 mls/hr IV .Q4H [facility] Stop: 07/18/17 09:59 Last Admin: 07/18/17 06:20 Dose: 130 mls/hr Insulin Aspart (Novolog Flexpen (Bkc)) 0 units SC Q6 PAT PRN Reason: Protocol Last Admin: 07/18/17 06:30 Dose: 1 units Magnesium Hydroxide (Milk Of Magnesia) 30 ml PO DAILY PRN PRN PRN Reason: Constipation Ondansetron HCl (Zofran) 4 mg IV Q8H PRN PRN PRN Reason: NAUSEA Polyethylene Glycol (Miralax) 17 gm GT BID [facility] Last Admin: 07/17/17 22:19 Dose: 17 gm Promethazine HCl (Phenergan Iv) 12.5 mg IV Q6H PRN PRN PRN Reason: NAUSEA/VOMITING Senna/Docusate Sodium (Senokot-S, Jaja-Colace) 2 tablet GT BID [facility] Last Admin: 07/17/17 22:19 Dose: 2 tablet Sodium Chloride () 5 - 30 ml IV UD PRN PRN Reason: SALINE FLUSH Last Admin: 07/17/17 22:20 Dose: 10 ml Warfarin Sodium (Coumadin (Pbkc)) 3 mg GT DAILY@1700 PAT Last Admin: 07/17/17 17:24 Dose: 3 mg Medical Necessity - Tobacco Use Smoking Status: Never smoker Tobacco Use: Non-smoker Assessment/Plan Patient is a 77 year old lady with past medical history sent on for CAD, systolic congestive heart failure cirrhosis of the liver secondary to nonalcoholic fatty liver disease A. fib who presented with abdominal pain and bloating, progressive shortness of breath. Patient apparently desaturated while is in the emergency department was intubated and subsequently sent to the intensive care unit for further management 1. Acute Hypoxic and Hypercarbic Respiratory Failure secondary to Acute Decompensated Systolic CHF: Admitted to the intensive care unit currently on the vent management deferred to pulmonary medicine patient was started on Lasix drip; echo obtained demonstrated LVEF is 10-15% with severe global hypokinesis, severe left atrial enlargement, RVSP of at least 43 mmHg, patient did respond with significant diuresis after metolazone was added to her regimen. Currently on dobutamine drip. Plan is for patient to be weaned off the vent. 2. Valvular heart disease: She of mitral valve replacement with [facility], tricuspid valve repair. Patient is on systemic anticoagulation with Coumadin INR was subtherapeutic on admission catheter and heparin was within for INR to become therapeutic (2.5-3.5) patient also has history of severe aortic stenosis seen by cardiology recommendation is for possible consideration for TAVR down the line medically stable 3. CAD with previous CABG 4. Chronic A. fib 5. Hypertension-blood pressure controlled, 6. Dyslipidemia-history 7. 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 Recent varicella zoster involving the ophthalmic branch of the 8th cranial nerve patient has healing vesicles in various stage 9. Severe protein calorie malnutrition evidenced by hypoalbuminemia loss of flaccid muscle. Consult was placed to dietitian on admission 10. Diabetes mellitus type 2 managed with diet 11. DVT Prophylaxis: coumadin 12. Hypokalemia secondary to use of diuretics repleted per protocol Code Visit Inpatient E&M: [id number] [facility] L3
--- NOTE | 2017-07-18 09:35 | CASEMGMT ---
Interdisciplinary rounds: pt is extubated, on 2L NC. PT/OT today. Daughter in laws are in room. RN CM spoke with patient and her daughter in laws after rounds. Discussed recommendation for SNF on dc for strengthening and medical monitoring. Pt has not been in SNF prior. Explained procedure, [facility] and community facilities. Pt was following conversation, nodding appropriately. They would like to speak with her and other family to discuss. SW updated. Precertification will be needed for SNF placement. Jasmeet UREÑAN RN ACM
--- NOTE | 2017-07-18 09:37 | CASEMGMT ---
SW spoke w/Linda in TCU, TCU would have a bed for pt on Friday, and they would start precert Friday if this is what pt definitively needs. MILENA/TAYLOR will follow up on Friday. CLAUDE Rodriguez, [employer]
--- NOTE | 2017-07-18 10:50 | RAD_ITS ---
STUDY: X-RAY CHEST REASON FOR EXAM: Female, 77 years old. CHF. TECHNIQUE: Single AP portable view of the chest. COMPARISON: Comparison is made with prior study dated July 17, 2017. FINDINGS: The endotracheal tube and nasogastric tube have been removed. Since prior study, there has been improvement of the CHF although moderate amount of CHF remains. Small bilateral pleural effusions with underlying atelectasis. Sternal cerclage wires and vascular clips are present from a prior sternotomy and coronary artery bypass graft procedure (CABG). Prior mitral valve replacement. Moderate cardiomegaly. Normal mediastinum and alona. Normal visualized pulmonary arteries. There is atherosclerotic tortuosity of the aortic arch and descending thoracic aorta. There are diffuse degenerative changes of the visualized thoracic spine. There is degenerative osteoarthritis of the bilateral shoulders. There is no demonstrated abnormality of the visualized soft tissue structures of the upper abdomen. RAD/Chest 1 View (Portable) IMPRESSION: Residual CHF although this has improved as compared to prior study. Residual bilateral pleural effusions with underlying atelectasis. Electronically Signed: Segundo Zamarripa MD at 14:30 EDT Tel [phone], Service support ,
[2017-07-18] MEDS: Furosemide 40 MG/4 ML Vial IV ×2 (11:13→17:23)
[2017-07-18 11:55] LABS: Bedside Glucose 144 mg/dL (70-110)
--- NOTE | 2017-07-18 11:58 | PN.CARD_ITS ---
Subjectve: Patient extubated this morning, awake, alert, says yes and no answers, on 2 L nasal cannula. Diuresis of approximately 2200 cc over the past 36 hours. IV Lasix drip and IV dobutamine drip discontinued this morning. Patient switched to Lasix 40 mg IV twice daily. Bicarb 35. INR therapeutic. Objective: Vital Signs Temp Pulse Resp BP Pulse Ox 100.1 F H 81 22 H 126/48 H 97 07/18/17 08:00 07/18/17 09:00 07/18/17 09:00 07/18/17 09:00 07/18/17 09:00 Oxygen Flow Rate (L/min) 2 Oxygen Delivery Method Nasal Cannula Weight: 140 lb 6.951 oz Body Mass Index (BMI) 27.1 Intake and Output for Last 24 Hours 07/16/17 07/17/17 07/18/17 23:59 23:59 23:59 Intake Total 1349.5 / 1349.5 1814.3 / 1814.3 961 / 961 Output Total 887 / 887 3997 / 3997 1493 / 1493 Balance 462.5 / 462.5 -2182.7 / -2182.7 -532 / -532 General: Awake, Alert, Oriented x 3 HEENT: PERRL, EOMI, Sclera Non Icteric Neck: Supple, Good ROM, No Lymph Node Enlargement Lungs: Clear to auscultation, Diminished Juan C Bases, Dullness to Percussion-Juan C Cardiovascular: Irregular Rhythm, Normal S1, Normal S2, No Rubs, No Gallops, [place] Prosthetic S1, [place] Prosthetic S2 Murmur Murmur: Grade 3/6, Crescendo-Decrescendo Vascular: No Carotid Bruits, Normal Femoral Pulses, Normal Radial Pulses, Normal Dorsalis Pedal Pulse, Normal Posterior Tibial Pulses Abdomen: Bowel Sounds Present, Soft, Non Tender, No HSM, No Organomegaly Extremities: No Cyanosis, No Clubbing, No edema Neurological: No Focal Motor or Sensory Deficit 07/18/17 05:00: WBC 10.3, RBC 3.98 L, Hgb 12.3, Hct 37.3, MCV 93.7, MCH 30.9, MCHC 33.0, RDW 15.2 H, RDW Differential 50.4 H, Plt Count 351, MPV 9.6 07/18/17 05:00: PT 40.9 H, INR 4.2 H* 07/18/17 05:00: Sodium 144, Potassium 2.1 L*, Chloride 98, Carbon Dioxide 35.0 H , Anion Gap 11, BUN 37 H, Creatinine 1.03 H, Est GFR (MDRD) Af Amer 66, Est GFR (MDRD) Non-Af 55 L, BUN/Creatinine Ratio 35.9 H, Glucose 150 H, Calcium 7.6 L, Magnesium 2.4 Rhythm: EKG: ECHO: Stress Test: Cardiac Cath: PCI: CT Surgery: Holter monitor: EPS: PPM: CXR: Chest x-ray shows resolving bilateral pleural effusions, most likely subpulmonic in origin, fluid no longer in right middle fissure, pulmonary congestion present but improved. Chest CT Scan: Medical Necessity - Tobacco Use Smoking Status: Never smoker Tobacco Use: Non-smoker Assessment/Plan 1. Cardiomyopathy: The patient appears to have acute on chronic congestive heart failure most likely as a result of medical noncompliance as she has currently not been taking her Lasix out of concern for her kidney dysfunction. Her BUN and creatinine are within normal limits but her creatinine clearance is in the mid 30s, and she has had a slight increase in her creatinine to 1.11. Lasix drip and dobutamine drip discontinued this morning after extubation. Patient doing well after extubation. Chest x-ray shows improved bilateral pleural effusions, but not completely resolved. Her echocardiogram suggests that her left pleural effusion may be loculated so this may not improve. I would not recommend repeat catheterization at this time. Patient was on Coreg 3.125 mg p.o. twice daily, Coumadin, lisinopril 10 mg a day and Lasix 80 mg p.o. twice daily. The patient may require periodic metolazone 2.5 mg once or twice a week in order to maintain fluid status. We have given her metolazone 2.5 mg ?1 2 days ago, as her urine output has not been that impressive. Patient has undergone a repeat echocardiogram on this visit, and her LVEF is 10- 15% with severe global hypokinesis, severe left atrial enlargement, RVSP of at least 43 mmHg, and aortic valve appears to have decreased opening due to poor cardiac output and not because of intrinsic valvular disease. Would not recommend evaluation for aortic stenosis at this time. Would recommend gentle diuresis to avoid acute renal failure with the hope of diuresing her at least 1-1.5 L per day. Would recommend switching her to Lasix IV 40 mg twice daily, and continue gentle diuresis. Her bicarbonate is beginning to climb indicating she has a contraction alkalosis. I am not sure whether we are able to completely remove the pleural effusions as they may be loculated particularly on the left side. Ultrasound evaluation may be indicated when she is able to lay forward. Would recommend holding her Coreg until her dry weight has been achieved. We will continue lisinopril 10 mg p.o. daily for afterload reduction. Would recommend lower dose less prominent beta-lili such as Lopressor going forward. In addition I would recommend a 1500 cc fluid restriction as well as as 2. 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 INR is therapeutic today. Patient has had epistasis in the past but appears to be tolerating Coumadin well. Agreed to discontinue heparin drip today as her INR is greater than 3.0. 3. Coronary artery disease: Her last catheterization was approximately 9 years ago which demonstrated mild nonobstructive coronary disease. Would not recommend repeat catheterization unless the patient is having difficulty coming off the ventilator due to undiagnosed ischemia. 4. Shingles: Continue supportive therapy. 5. Thank you very much for the opportunity to put dissipate in the cardiac care of your patient.
[2017-07-18] MEDS: Senna/Docusate Sodium 1 Tablet 2 TABLET PO ×2 (12:23→21:16)
[2017-07-18] MEDS: Famotidine 20 MG Tablet PO ×2 (12:24→21:17)
[2017-07-18] MEDS: Polyethylene Glycol 3350 17 GM PACKET PO (12:24)
--- NOTE | 2017-07-18 14:24 | CASEMGMT ---
RN CM attempted x 2 to speak with , family and pt re: SNF recommendation per PT/OT and physician. No family available at this time. Jasmeet UREÑAN RN ACM
[2017-07-18 17:36] LABS: Bedside Glucose 114 mg/dL (70-110)
[2017-07-18] MEDS: HYDROcodone Bitartrate/Apap 5/325 Tablet PO (23:54)
[2017-07-19] VITALS (19 sets, daily range): BP systolic 119–138; BP diastolic 48–78; PULSE 59–80; RESP 16–23; TEMP 36.8–37.6; O2SAT 90–99
[2017-07-19] LABS: Bedside Glucose 106 mg/dL (70-110)
[2017-07-19 04:41] LABS: Hematocrit 38.2 % (37-47); Hemoglobin 12.2 g/dl (12.0-15.0); Mean Corp Hgb Conc 31.9 g/gl (32-36); Mean Corpuscular Hgb 30.7 pg (27.0-32.0); Mean Corpuscular Volume 96.2 fL (81-99); Mean Platelet Vol. 9.5 fl (6.2-12.0); Platelet Count 358 K/mm3 (150-450); RBC Distribution Width CV 15.4 % (11.6-14.6); RBC Distribution Width SD 51.9 fl (35.1-43.9); Red Blood Count 3.97 M/mm3 (4.2-5.4); White Blood Count 8.1 K/mm3 (4.4-11.0)
[2017-07-19 04:51] LABS: Scan Indicated on CBC? Y/N NO
[2017-07-19 04:58] LABS: Prothrombin Time (Protime)PT. 31.5 SECONDS (11.7-14.9)
[2017-07-19 05:00] LABS: Anion Gap 7 (5-15); BUN 35 mg/dL (7-18); BUN/Creat Ratio 53.6 RATIO (10-20); Calcium,Total 8.1 mg/dL (8.5-10.1); Chloride 97 mmol/L (98-107); Creatinine, Serum 0.65 mg/dL (0.55-1.02); EST Glomerular Filtration Rate 93 mL/min (>60); Est Glom Filt Rate - Afr Amer 112 mL/min (>60); Estimated Creatinine Clearance 34.42 ml/min; Glucose 93 mg/dL (74-106); Potassium 2.3 mmol/L (3.5-5.1); Sodium Level 145 mmol/L (136-145)
[2017-07-19] MEDS: CHLORHEXIDINE GLUC 2% CLOTH 1 EACH TOWELETTE TOPICAL (05:54)
[2017-07-19 06:16] LABS: Bedside Glucose 103 mg/dL (70-110)
[2017-07-19] MEDS: Albuterol 2.5 MG/3 ML VIAL.NEB. INHALATION ×3 (06:42→19:04)
--- NOTE | 2017-07-19 07:10 | PN_ITS ---
Subjective: The patient was seen and examined at the bedside this morning. Events from the last 24 hours have been reviewed. The patient is currently afebrile, hemodynamically stable and maintaining appropriate oxygen saturations on room air. The patient has done well following extubation yesterday. She continues to diurese well was documented to be -3.4 L yesterday. For the admission, she is now 5.8 L negative. Potassium is again low this morning at 2.3. Creatinine is improved. No overnight events were noted by the nursing staff. Objective: The patient's most recent lab work, culture data and imaging studies have all been personally reviewed. Wound Gram stain revealed rare gram-positive cocci and gram-negative rods. Blood, urine and sputum culture pending. Surface echocardiogram revealed a severely dilated LV with an ejection fraction estimated to be 10-15%. There was also note of severe biatrial enlargement in the right ventricular systolic pressure estimated to be 43 mmHg. Surface echocardiogram from March 2016 revealed moderately severe global LV systolic dysfunction with an ejection fraction of 30%. Right ventricular systolic pressure was estimated to be 45 mmHg. There was also note of moderate to severe aortic valve stenosis. CT abdomen/pelvis revealed moderate bilateral pleural effusions, anasarca diverticulosis without evidence of inflammation. Plain film chest x-ray revealed pulmonary edema and large bilateral pleural effusions. General: Alert, Cooperative, No apparent distress, - - Sitting in bedside recliner HEENT: Atraumatic, PERRLA, Normocephalic Oral: No Gingival or Mucosal Lesions/ Ulcerations Neck: Supple, No Nodes, Trachea Midline Lungs: No rhonchi, No wheeze, No rales, Diminished Cardiovascular: Normal S1, Normal S2, Irregular Rate, Murmur, No rub noted, No Gallop Abdomen: Bowel Sounds Present, Soft, Non Tender Extremities: No clubbing, No cyanosis, Edema Skin: - - No significant change from previous Musculoskeletal: Cachexia, Muscle Wasting Lymphatic: No Cervical, Supraclavicular, or Inguinal Adenopathy Neurological: Neuro grossly intact Psych/Mental Status: Normal Affect, Appropriate Vital Signs Temp Pulse Resp BP Pulse Ox 98.9 F 59 L 18 119/78 90 07/19/17 04:00 07/19/17 06:00 07/19/17 06:00 07/19/17 06:00 07/19/17 06:00 Oxygen Flow Rate (L/min) 3 Oxygen Delivery Method Room Air Weight: 132 lb 0.91 oz Body Mass Index (BMI) 27.1 Intake and Output for Last 24 Hours 07/17/17 07/18/17 07/19/17 23:59 23:59 23:59 Intake Total 1814.3 / 1814.3 1021 / 1021 183 / 183 Output Total 3997 / 3997 4438 / 4438 875 / 875 Balance -2182.7 / -2182.7 -3417 / -3417 -692 / -692 Labs (Last 48 Hours) 07/17/17 07/17/17 07/18/17 11:34 17:38 00:52 WBC RBC Hgb Hct MCV MCH MCHC RDW RDW Differential Plt Count MPV PT INR Sodium Potassium Chloride Carbon Dioxide Anion Gap BUN Creatinine Estim Creat Clear Calc Est GFR (MDRD) Af Amer Est GFR (MDRD) Non-Af BUN/Creatinine Ratio Glucose Calcium Magnesium POC Glucose 190 H 171 H 165 H 07/18/17 07/18/17 07/18/17 05:00 05:00 05:00 WBC 10.3 RBC 3.98 L Hgb 12.3 Hct 37.3 MCV 93.7 MCH 30.9 MCHC 33.0 RDW 15.2 H RDW Differential 50.4 H Plt Count 351 MPV 9.6 PT 40.9 H INR 4.2 H* Sodium 144 Potassium 2.1 L* Chloride 98 Carbon Dioxide 35.0 H Anion Gap 11 BUN 37 H Creatinine 1.03 H Estim Creat Clear Calc 33.42 Est GFR (MDRD) Af Amer 66 Est GFR (MDRD) Non-Af 55 L BUN/Creatinine Ratio 35.9 H Glucose 150 H Calcium 7.6 L Magnesium 2.4 POC Glucose 07/18/17 07/18/17 07/18/17 06:29 11:35 17:21 WBC RBC Hgb Hct MCV MCH MCHC RDW RDW Differential Plt Count MPV PT INR Sodium Potassium Chloride Carbon Dioxide Anion Gap BUN Creatinine Estim Creat Clear Calc Est GFR (MDRD) Af Amer Est GFR (MDRD) Non-Af BUN/Creatinine Ratio Glucose Calcium Magnesium POC Glucose 153 H 144 H 114 H 07/18/17 07/19/17 07/19/17 23:57 04:30 04:30 WBC 8.1 RBC 3.97 L Hgb 12.2 Hct 38.2 MCV 96.2 MCH 30.7 MCHC 31.9 L RDW 15.4 H RDW Differential 51.9 H Plt Count 358 MPV 9.5 PT 31.5 H INR 3.0 Sodium Potassium Chloride Carbon Dioxide Anion Gap BUN Creatinine Estim Creat Clear Calc Est GFR (MDRD) Af Amer Est GFR (MDRD) Non-Af BUN/Creatinine Ratio Glucose Calcium Magnesium POC Glucose 106 07/19/17 07/19/17 04:30 06:08 WBC RBC Hgb Hct MCV MCH MCHC RDW RDW Differential Plt Count MPV PT INR Sodium 145 Potassium 2.3 L* Chloride 97 L Carbon Dioxide 41.0 H Anion Gap 7 BUN 35 H Creatinine 0.65 Estim Creat Clear Calc 34.42 Est GFR (MDRD) Af Amer 112 Est GFR (MDRD) Non-Af 93 BUN/Creatinine Ratio 53.6 H Glucose 93 Calcium 8.1 L Magnesium POC Glucose 103 Microbiology 07/16/17 11:40 Blood Culture (Wb) - Right Forearm Blood Culture - Preliminary No growth in 48 hours. 07/16/17 11:20 Blood Culture (Wb) - Anticubital Right Blood Culture - Preliminary No growth in 48 hours. 07/16/17 08:15 Wound - Head Gram Stain - Final 07/16/17 08:15 Wound - Head Wound Culture - Preliminary Coag Negative Staph Gram positive leslie 07/16/17 14:35 Sputum, Induced/Lukens Gram Stain - Final 07/16/17 14:35 Sputum, Induced/Lukens Respiratory Culture - Final 07/16/17 11:50 Urine Catheter - Grady Urine Culture - Final Culture exhibits no growth. Clinical Impression(s) from Imaging Studies Abdomen/Pelvis CT 07/15/17 23:00 IMPRESSION: Severe cardiomegaly persistent moderate bilateral effusions body anasarca ascites and a protrusive appearance of the abdomen with a diastases of the rectus muscle. Atherosclerotic disease of the aorta Diverticulosis no evidence of diverticulitis. There are stable stones involving the right renal pelvis which is thought to likely be vascular rather than part of the ureter. Electronically Signed: Zoila Marquis MD at 23:51 EDT Tel , Service support , Chest X-Ray 07/15/17 23:25 IMPRESSION: Large worsening bilateral effusions atelectasis consider CHF. Cardiomegaly cardiac valvular ring. Electronically Signed: Zoila Marquis MD at 23:59 EDT Tel , Service support , Chest X-Ray 07/16/17 00:11 IMPRESSION: Status post intubation and NG tube lines in satisfactory position. Persistent bilateral effusions atelectasis. Electronically Signed: Zoila Marquis MD at 1:22 EDT Tel , Service support , Chest X-Ray 07/16/17 05:55 IMPRESSION: Consider congestive heart failure unchanged. Support lines and tubes in their expected locations. Endotracheal tube tip 1.5 cm above the yomaira with the chin down. Electronically Signed: Frederick Suarez MD at 5:18 EDT , Service support , Chest X-Ray 07/17/17 08:04 IMPRESSION: Essentially stable examination. The tip of the endotracheal tube is at the level of the yomaira. This should be withdrawn approximately 2.5 cm. Electronically Signed: Segundo Zamarripa MD at 9:24 EDT Tel [phone], Service support , Chest X-Ray 07/18/17 10:50 IMPRESSION: Residual CHF although this has improved as compared to prior study. Residual bilateral pleural effusions with underlying atelectasis. Electronically Signed: Segundo Zamarripa MD at 14:30 EDT Tel [phone], Service support , Medical Necessity - Tobacco Use Smoking Status: Never smoker Tobacco Use: Non-smoker Assessment/Plan RECOMMENDATIONS: 1. Okay from my perspective to discontinue antibiotics, given lack of positive culture data. 2. Continue diuretic regimen per cardiology recommendations. 3. Continue Coumadin 4. Aggressive electrolyte repletion. 5. Physical therapy to work with patient 6. Encourage incentive spirometer use IMPRESSIONS: 1. Acute respiratory failure Likely secondary to decompensated heart failure. Following volume optimization , the patient was able to be liberated from mechanical ventilation. Her diuretic regimen is currently being managed by cardiology. She is maintaining appropriate oxygen saturations on room air. Encourage incentive spirometer use and mobilize patient as tolerated. Perform walking oximetry study prior to consideration for discharge from the hospital. 2. Decompensated heart failure/troponin elevation/atrial fibrillation/status post mitral and tricuspid valve repair/aortic stenosis Cardiology is following. Continue current medical management as noted above. Continue daily Coumadin regimen and check INR. 3. Questionable PEREYRA cirrhosis The patient's cirrhosis history is not clear. The patient reportedly does not see a dedicated liver specialist. 4. Acute kidney injury Improved. Potentially related to attempts at volume optimization. Creatinine remains stable. Will continue to monitor. No indication for renal replacement therapy at this time. 5. Hypokalemia Aggressive electrolyte repletion as indicated. 6. Advanced age and deconditioning/malnutrition and cachexia Complicates care, management, recovery and prognosis. Physical therapy to work with patient. This note was generated with [employer] dictation software. It may contain incorrect words, spelling, and punctuation that were not noted in checking the note before signing. DISPOSITION: The patient is medically stable for transfer out of the intensive care unit. Code Visit Inpatient E&M: 86024 [facility] L3
[2017-07-19] MEDS: Acetaminophen 325 MG Tablet 650 MG PO ×2 (07:56→20:57)
--- NOTE | 2017-07-19 08:03 | PCM.PN.HOSP ---
Subjective: She was successfully extubated the day prior. Seen this a.m. sitting in a chair appears comfortable at rest. She still has significant edema. Had discussion with the patient once again regarding her wrist. Patient still wants to remain full code. Plan is for patient to be transferred from the intensive care unit to the progressive care unit. Objective: GENERAL: Awake not in distress HEENT: Excoriation on the scalp with areas of dry vesicles NECK; supple, normal thyroid, CHEST: Diminished to auscultation bilaterally, HEART: Regular S1 S2, no audible murmurs ABDOMEN: soft, non-tender, normoactive bowel sounds, RECTAL: deferred EXTREMITIES: bipedal edema no clubbing, no cyanosis. TRAILER CHIEF: Awake without lateralizing signs SKIN:As described above, Vitals/I&O's: Vital Signs Temp Pulse Resp BP Pulse Ox 98.9 F 80 20 H 125/60 H 94 07/19/17 04:00 07/19/17 07:00 07/19/17 07:00 07/19/17 07:00 07/19/17 07:00 Oxygen Flow Rate (L/min) 3 Oxygen Delivery Method Room Air Weight: 59.9 kg Body Mass Index (BMI) 27.1 Intake and Output for Last 24 Hours 07/17/17 07/18/17 07/19/17 23:59 23:59 23:59 Intake Total 1814.3 / 1814.3 1021 / 1021 183 / 183 Output Total 3997 / 3997 4438 / 4438 875 / 875 Balance -2182.7 / -2182.7 -3417 / -3417 -692 / -692 Microbiology Past 72 Hours 07/16/17 08:15 Wound - Head Gram Stain - Final 07/16/17 08:15 Wound - Head Wound Culture - Final Coag Negative Staph Gram positive leslie 07/16/17 11:40 Blood Culture (Wb) - Right Forearm Blood Culture - Preliminary No growth in 48 hours. 07/16/17 11:20 Blood Culture (Wb) - Anticubital Right Blood Culture - Preliminary No growth in 48 hours. 07/16/17 14:35 Sputum, Induced/Lukens Gram Stain - Final 07/16/17 14:35 Sputum, Induced/Lukens Respiratory Culture - Final 07/16/17 11:50 Urine Catheter - Grady Urine Culture - Final Culture exhibits no growth. Laboratory Results 07/18/17 11:35: POC Glucose 144 H 07/18/17 17:21: POC Glucose 114 H 07/18/17 23:57: POC Glucose 106 07/19/17 04:30: WBC 8.1, RBC 3.97 L, Hgb 12.2, Hct 38.2, MCV 96.2, MCH 30.7, MCHC 31.9 L, RDW 15.4 H, RDW Differential 51.9 H, Plt Count 358, MPV 9.5 07/19/17 04:30: PT 31.5 H, INR 3.0 07/19/17 04:30: Sodium 145, Potassium 2.3 L*, Chloride 97 L, Carbon Dioxide 41.0 H, Anion Gap 7, BUN 35 H, Creatinine 0.65, Estim Creat Clear Calc 34.42, Est GFR (MDRD) Af Amer 112, Est GFR (MDRD) Non-Af 93, BUN/Creatinine Ratio 53.6 H, Glucose 93, Calcium 8.1 L 07/19/17 06:08: POC Glucose 103 Current Medications Acetaminophen (Tylenol) 650 mg PO Q6H PRN PRN PRN Reason: Non-cardiac pain (mod-severe) Last Admin: 07/19/17 07:56 Dose: 650 mg Hydrocodone Bitart/Acetaminophen ([place] 5mg-325mg) 1 - 2 tablet PO Q6H PRN PRN PRN Reason: Moderate-severe pain Last Admin: 07/18/17 23:54 Dose: 2 tablet Albuterol Sulfate (Ventolin Aerosols) 2.5 mg INHALATION Q4HWA.RT [facility] Last Admin: 07/19/17 06:42 Dose: 2.5 mg Chlorhexidine Gluconate () 1 each TOPICAL DAILY [facility] Last Admin: 07/19/17 05:54 Dose: 1 each Dextrose (D50w Syringe) 0 gm IV X1 PRN; Protocol PRN Reason: Hypoglycemia Famotidine (Pepcid) 20 mg PO BID [facility] Last Admin: 07/18/17 21:17 Dose: 20 mg Furosemide (Lasix) 40 mg IV BID@1000,1800 [facility] Last Admin: 07/18/17 17:23 Dose: 40 mg Glucagon () 1 mg IM .X1 PRN PRN Reason: Hypoglycemia Hydralazine HCl (Apresoline Iv) 10 mg IV Q4H PRN PRN PRN Reason: SBP > 160 Propofol (Diprivan) 1,000 mg in 100 mls @ 1.905 mls/hr CONT INF .Q12H PAT; 5 MCG/KG/MIN PRN Reason: Protocol Last Admin: 07/19/17 00:23 Dose: Not Given Sodium Chloride () 250 mls @ 15 mls/hr IV .[id number] PRN PRN Reason: SALINE FLUSH Ceftriaxone Sodium 2 gm/ (Sodium Chloride) 50 mls @ 100 mls/hr IV Q24 PAT Last Admin: 07/18/17 11:13 Dose: 100 mls/hr Potassium Chloride 40 meq/ (Sodium Chloride) 520 mls @ 130 mls/hr IV .Q4H [facility] Stop: 07/19/17 09:34 Last Admin: 07/19/17 05:53 Dose: 130 mls/hr Insulin Aspart (Novolog Flexpen (Bkc)) 0 units SC Q6 PAT PRN Reason: Protocol Last Admin: 07/19/17 06:17 Dose: Not Given Magnesium Hydroxide (Milk Of Magnesia) 30 ml PO DAILY PRN PRN PRN Reason: Constipation Morphine Sulfate () 1 - 2 mg IV Q4H PRN PRN PRN Reason: PAIN Ondansetron HCl (Zofran) 4 mg IV Q8H PRN PRN PRN Reason: NAUSEA Polyethylene Glycol (Miralax) 17 gm PO BID [facility] Last Admin: 07/18/17 21:23 Dose: Not Given Potassium [facility]Dur[facility] Promethazine HCl (Phenergan Iv) 12.5 mg IV Q6H PRN PRN PRN Reason: NAUSEA/VOMITING Senna/Docusate Sodium (Senokot-S, Jaja-Colace) 2 tablet PO BID [facility] Last Admin: 07/18/17 21:16 Dose: 2 tablet Sodium Chloride () 5 - 30 ml IV UD PRN PRN Reason: SALINE FLUSH Last Admin: 07/17/17 22:20 Dose: 10 ml Warfarin Sodium (Coumadin (Pbkc)) 3 mg PO DAILY@1700 [facility] Last Admin: 07/18/17 11:14 Dose: Not Given Medical Necessity - Tobacco Use Smoking Status: Never smoker Tobacco Use: Non-smoker Assessment/Plan Patient is a 77 year old lady with past medical history sent on for CAD, systolic congestive heart failure cirrhosis of the liver secondary to nonalcoholic fatty liver disease A. fib who presented with abdominal pain and bloating, progressive shortness of breath. Patient apparently desaturated while is in the emergency department was intubated and subsequently sent to the intensive care unit for further management 1. Acute Hypoxic and Hypercarbic Respiratory Failure secondary to Acute Decompensated Systolic CHF: Admitted to the intensive care unit currently on the vent management deferred to pulmonary medicine patient was started on Lasix drip; echo obtained demonstrated LVEF is 10-15% with severe global hypokinesis, severe left atrial enlargement, RVSP of at least 43 mmHg, patient did respond with significant diuresis after metolazone was added to her regimen. Currently on dobutamine drip. Weaned off the vent on 07/18/2017. 2. Valvular heart disease: She of mitral valve replacement with [facility], tricuspid valve repair. Patient is on systemic anticoagulation with Coumadin INR was subtherapeutic on admission catheter and heparin was within for INR to become therapeutic (2.5-3.5) patient also has history of severe aortic stenosis seen by cardiology recommendation is for possible consideration for TAVR down the line medically stable 3. CAD with previous CABG 4. Chronic A. fib 5. Hypertension-blood pressure controlled, 6. Dyslipidemia-history 7. 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 Recent varicella zoster involving the ophthalmic branch of the 8th cranial nerve patient has healing vesicles in various stage 9. Severe protein calorie malnutrition evidenced by hypoalbuminemia loss of flaccid muscle. Consult was placed to dietitian on admission 10. Diabetes mellitus type 2 managed with diet 11. DVT Prophylaxis: coumadin 12. Hypokalemia secondary to use of diuretics repleted per protocol Code Visit Inpatient E&M: 65525 [facility] L3
--- NOTE | 2017-07-19 08:07 | PN_ITS ---
Subjective: She was successfully extubated the day prior. Seen this a.m. sitting in a chair appears comfortable at rest. She still has significant edema. Had discussion with the patient once again regarding her wrist. Patient still wants to remain full code. Plan is for patient to be transferred from the intensive care unit to the progressive care unit. Objective: GENERAL: Awake not in distress HEENT: Excoriation on the scalp with areas of dry vesicles NECK; supple, normal thyroid, CHEST: Diminished to auscultation bilaterally, HEART: Regular S1 S2, no audible murmurs ABDOMEN: soft, non-tender, normoactive bowel sounds, RECTAL: deferred EXTREMITIES: bipedal edema no clubbing, no cyanosis. 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 without lateralizing signs SKIN:As described above, Vitals/I&O's: Vital Signs Temp Pulse Resp BP Pulse Ox 98.9 F 80 20 H 125/60 H 94 07/19/17 04:00 07/19/17 07:00 07/19/17 07:00 07/19/17 07:00 07/19/17 07:00 Oxygen Flow Rate (L/min) 3 Oxygen Delivery Method Room Air Weight: 59.9 kg Body Mass Index (BMI) 27.1 Intake and Output for Last 24 Hours 07/17/17 07/18/17 07/19/17 23:59 23:59 23:59 Intake Total 1814.3 / 1814.3 1021 / 1021 183 / 183 Output Total 3997 / 3997 4438 / 4438 875 / 875 Balance -2182.7 / -2182.7 -3417 / -3417 -692 / -692 Microbiology Past 72 Hours 07/16/17 08:15 Wound - Head Gram Stain - Final 07/16/17 08:15 Wound - Head Wound Culture - Final Coag Negative Staph Gram positive leslie 07/16/17 11:40 Blood Culture (Wb) - Right Forearm Blood Culture - Preliminary No growth in 48 hours. 07/16/17 11:20 Blood Culture (Wb) - Anticubital Right Blood Culture - Preliminary No growth in 48 hours. 07/16/17 14:35 Sputum, Induced/Lukens Gram Stain - Final 07/16/17 14:35 Sputum, Induced/Lukens Respiratory Culture - Final 07/16/17 11:50 Urine Catheter - Grady Urine Culture - Final Culture exhibits no growth. Laboratory Results 07/18/17 11:35: POC Glucose 144 H 07/18/17 17:21: POC Glucose 114 H 07/18/17 23:57: POC Glucose 106 07/19/17 04:30: WBC 8.1, RBC 3.97 L, Hgb 12.2, Hct 38.2, MCV 96.2, MCH 30.7, MCHC 31.9 L, RDW 15.4 H, RDW Differential 51.9 H, Plt Count 358, MPV 9.5 07/19/17 04:30: PT 31.5 H, INR 3.0 07/19/17 04:30: Sodium 145, Potassium 2.3 L*, Chloride 97 L, Carbon Dioxide 41.0 H, Anion Gap 7, BUN 35 H, Creatinine 0.65, Estim Creat Clear Calc 34.42, Est GFR (MDRD) Af Amer 112, Est GFR (MDRD) Non-Af 93, BUN/Creatinine Ratio 53.6 H, Glucose 93, Calcium 8.1 L 07/19/17 06:08: POC Glucose 103 Current Medications Acetaminophen (Tylenol) 650 mg PO Q6H PRN PRN PRN Reason: Non-cardiac pain (mod-severe) Last Admin: 07/19/17 07:56 Dose: 650 mg Hydrocodone Bitart/Acetaminophen ([place] 5mg-325mg) 1 - 2 tablet PO Q6H PRN PRN PRN Reason: Moderate-severe pain Last Admin: 07/18/17 23:54 Dose: 2 tablet Albuterol Sulfate (Ventolin Aerosols) 2.5 mg INHALATION Q4HWA.RT [facility] Last Admin: 07/19/17 06:42 Dose: 2.5 mg Chlorhexidine Gluconate () 1 each TOPICAL DAILY [facility] Last Admin: 07/19/17 05:54 Dose: 1 each Dextrose (D50w Syringe) 0 gm IV X1 PRN; Protocol PRN Reason: Hypoglycemia Famotidine (Pepcid) 20 mg PO BID [facility] Last Admin: 07/18/17 21:17 Dose: 20 mg Furosemide (Lasix) 40 mg IV BID@1000,1800 [facility] Last Admin: 07/18/17 17:23 Dose: 40 mg Glucagon () 1 mg IM .X1 PRN PRN Reason: Hypoglycemia Hydralazine HCl (Apresoline Iv) 10 mg IV Q4H PRN PRN PRN Reason: SBP > 160 Propofol (Diprivan) 1,000 mg in 100 mls @ 1.905 mls/hr CONT INF .Q12H PAT; 5 MCG/KG/MIN PRN Reason: Protocol Last Admin: 07/19/17 00:23 Dose: Not Given Sodium Chloride () 250 mls @ 15 mls/hr IV .[id number] PRN PRN Reason: SALINE FLUSH Ceftriaxone Sodium 2 gm/ (Sodium Chloride) 50 mls @ 100 mls/hr IV Q24 PAT Last Admin: 07/18/17 11:13 Dose: 100 mls/hr Potassium Chloride 40 meq/ (Sodium Chloride) 520 mls @ 130 mls/hr IV .Q4H [facility] Stop: 07/19/17 09:34 Last Admin: 07/19/17 05:53 Dose: 130 mls/hr Insulin Aspart (Novolog Flexpen (Bkc)) 0 units SC Q6 PAT PRN Reason: Protocol Last Admin: 07/19/17 06:17 Dose: Not Given Magnesium Hydroxide (Milk Of Magnesia) 30 ml PO DAILY PRN PRN PRN Reason: Constipation Morphine Sulfate () 1 - 2 mg IV Q4H PRN PRN PRN Reason: PAIN Ondansetron HCl (Zofran) 4 mg IV Q8H PRN PRN PRN Reason: NAUSEA Polyethylene Glycol (Miralax) 17 gm PO BID [facility] Last Admin: 07/18/17 21:23 Dose: Not Given Potassium Ch[facility]ide (K[facility]Dur) [facility] Promethazine HCl (Phenergan Iv) 12.5 mg IV Q6H PRN PRN PRN Reason: NAUSEA/VOMITING Senna/Docusate Sodium (Senokot-S, Jaja-Colace) 2 tablet PO BID [facility] Last Admin: 07/18/17 21:16 Dose: 2 tablet Sodium Chloride () 5 - 30 ml IV UD PRN PRN Reason: SALINE FLUSH Last Admin: 07/17/17 22:20 Dose: 10 ml Warfarin Sodium (Coumadin (Pbkc)) 3 mg PO DAILY@1700 [facility] Last Admin: 07/18/17 11:14 Dose: Not Given Medical Necessity - Tobacco Use Smoking Status: Never smoker Tobacco Use: Non-smoker Assessment/Plan Patient is a 77 year old lady with past medical history sent on for CAD, systolic congestive heart failure cirrhosis of the liver secondary to nonalcoholic fatty liver disease A. fib who presented with abdominal pain and bloating, progressive shortness of breath. Patient apparently desaturated while is in the emergency department was intubated and subsequently sent to the intensive care unit for further management 1. Acute Hypoxic and Hypercarbic Respiratory Failure secondary to Acute Decompensated Systolic CHF: Admitted to the intensive care unit currently on the vent management deferred to pulmonary medicine patient was started on Lasix drip; echo obtained demonstrated LVEF is 10-15% with severe global hypokinesis, severe left atrial enlargement, RVSP of at least 43 mmHg, patient did respond with significant diuresis after metolazone was added to her regimen. Currently on dobutamine drip. Weaned off the vent on 07/18/2017. 2. Valvular heart disease: She of mitral valve replacement with [facility], tricuspid valve repair. Patient is on systemic anticoagulation with Coumadin INR was subtherapeutic on admission catheter and heparin was within for INR to become therapeutic (2.5-3.5) patient also has history of severe aortic stenosis seen by cardiology recommendation is for possible consideration for TAVR down the line medically stable 3. CAD with previous CABG 4. Chronic A. fib 5. Hypertension-blood pressure controlled, 6. Dyslipidemia-history 7. 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 Recent varicella zoster involving the ophthalmic branch of the 8th cranial nerve patient has healing vesicles in various stage 9. Severe protein calorie malnutrition evidenced by hypoalbuminemia loss of flaccid muscle. Consult was placed to dietitian on admission 10. Diabetes mellitus type 2 managed with diet 11. DVT Prophylaxis: coumadin 12. Hypokalemia secondary to use of diuretics repleted per protocol Code Visit Inpatient E&M: [id number] [facility] L3
[2017-07-19] MEDS: Famotidine 20 MG Tablet PO ×2 (11:00→20:57)
[2017-07-19] MEDS: Furosemide 40 MG/4 ML Vial IV ×2 (11:00→17:19)
[2017-07-19] MEDS: Senna/Docusate Sodium 1 Tablet 2 TABLET PO (11:01)
--- NOTE | 2017-07-19 12:19 | NURSING ---
speech therapy present in pt room.
--- NOTE | 2017-07-19 13:06 | PCM.PN.CARD ---
Subjectve: Sitting up in chair. No apparent distress. Denies any complaints. Objective: Vital Signs Temp Pulse Resp BP Pulse Ox 98.6 F 63 22 H 128/67 H 95 07/19/17 08:00 07/19/17 11:00 07/19/17 08:00 07/19/17 08:00 07/19/17 08:00 Oxygen Flow Rate (L/min) 3 Oxygen Delivery Method Room Air Weight: 59.9 kg Body Mass Index (BMI) 27.1 Intake and Output for Last 24 Hours 07/17/17 07/18/17 07/19/17 23:59 23:59 23:59 Intake Total 1814.3 / 1814.3 1021 / 1021 306 / 306 Output Total 3997 / 3997 4438 / 4438 1025 / 1025 Balance -2182.7 / -2182.7 -3417 / -3417 -719 / -719 General: Awake, Alert, Oriented x 3, - - Cachectic HEENT: Atraumatic Oral: Moist Mucosa Neck: Supple, - - Mild jugular venous distention Lungs: Clear to auscultation Cardiovascular: [place] Prosthetic S2 Extremities: Bilateral Edema +1 07/19/17 04:30: WBC 8.1, RBC 3.97 L, Hgb 12.2, Hct 38.2, MCV 96.2, MCH 30.7, MCHC 31.9 L, RDW 15.4 H, RDW Differential 51.9 H, Plt Count 358, MPV 9.5 07/19/17 04:30: PT 31.5 H, INR 3.0 07/19/17 04:30: Sodium 145, Potassium 2.3 L*, Chloride 97 L, Carbon Dioxide 41.0 H, Anion Gap 7, BUN 35 H, Creatinine 0.65, Est GFR (MDRD) Af Amer 112, Est GFR (MDRD) Non-Af 93, BUN/Creatinine Ratio 53.6 H, Glucose 93, Calcium 8.1 L Medical Necessity - Tobacco Use Smoking Status: Never smoker Tobacco Use: Non-smoker Assessment/Plan 1. Acute on chronic congestive heart failure. Ejection fraction 10-15%. Start on Aldactone. Resume beta-lili low-dose in a day or two. Restart lisinopril 2. History of valvular heart disease status post prosthetic mitral valve. INR management as per pharmacy 3. History of atrial fibrillation 4. History of nonobstructive coronary artery disease 5. History of cirrhosis graft 6. Hypokalemia. Electrolyte management as per internal medicine next 7. Diabetes mellitus 6. History of shingles
[2017-07-19] MEDS: Spironolactone 25 MG Tablet PO (14:09)
[2017-07-19 16:04] LABS: Potassium 2.9 mmol/L (3.5-5.1)
[2017-07-19] MEDS: Lisinopril 2.5 MG Tablet PO (17:31)
[2017-07-19] MEDS: 0.9% NaCl Peripheral Flush Adult/Peds IV (18:47)
[2017-07-20] VITALS (19 sets, daily range): BP systolic 107–152; BP diastolic 55–74; PULSE 67–80; RESP 14–26; TEMP 36.7–37.3; O2SAT 92–95
[2017-07-20] MEDS: Acetaminophen 325 MG Tablet 650 MG PO ×2 (05:27→21:22)
[2017-07-20] MEDS: 0.9% NaCl Peripheral Flush Adult/Peds IV ×2 (05:31→17:17)
[2017-07-20 06:00] LABS: Hematocrit 40.6 % (37-47); Hemoglobin 12.9 g/dl (12.0-15.0); Mean Corp Hgb Conc 31.8 g/gl (32-36); Mean Corpuscular Hgb 31.1 pg (27.0-32.0); Mean Corpuscular Volume 97.8 fL (81-99); Mean Platelet Vol. 9.6 fl (6.2-12.0); Platelet Count 403 K/mm3 (150-450); RBC Distribution Width CV 15.5 % (11.6-14.6); RBC Distribution Width SD 53.5 fl (35.1-43.9); Red Blood Count 4.15 M/mm3 (4.2-5.4); White Blood Count 7.8 K/mm3 (4.4-11.0)
[2017-07-20 06:01] LABS: Scan Indicated on CBC? Y/N NO
[2017-07-20 06:06] LABS: International Normalized Ratio 3.3
[2017-07-20 06:44] LABS: Anion Gap 5 (5-15); BUN 33 mg/dL (7-18); BUN/Creat Ratio 58.7 RATIO (10-20); Calcium,Total 8.1 mg/dL (8.5-10.1); Chloride 101 mmol/L (98-107); Creatinine, Serum 0.56 mg/dL (0.55-1.02); EST Glomerular Filtration Rate 111 mL/min (>60); Est Glom Filt Rate - Afr Amer 134 mL/min (>60); Estimated Creatinine Clearance 34.42 ml/min; Glucose 107 mg/dL (74-106); Potassium 2.6 mmol/L (3.5-5.1); Sodium Level 148 mmol/L (136-145)
--- NOTE | 2017-07-20 06:54 | PCM.PN.INT ---
Subjective: The patient was seen and examined at the bedside this morning. Events from the last 24 hours have been reviewed. The patient is currently afebrile, hemodynamically stable and maintaining appropriate oxygen saturations on room air. Potassium is low again this morning at 2.6. The patient was diuresed just over 1 L yesterday. She is now overall net -6.3 L for the admission. The patient remains on IV Lasix 40 mg twice daily. INR was noted to be 3.3 this morning. Overnight, the patient developed loose bowel movements. Nursing staff sent a C. difficile and it was found to be positive. Objective: The patient's most recent lab work, culture data and imaging studies have all been personally reviewed. Wound Gram stain revealed rare gram-positive cocci and gram-negative rods. Blood, urine and sputum culture pending. Surface echocardiogram revealed a severely dilated LV with an ejection fraction estimated to be 10-15%. There was also note of severe biatrial enlargement in the right ventricular systolic pressure estimated to be 43 mmHg. Surface echocardiogram from March 2016 revealed moderately severe global LV systolic dysfunction with an ejection fraction of 30%. Right ventricular systolic pressure was estimated to be 45 mmHg. There was also note of moderate to severe aortic valve stenosis. CT abdomen/pelvis revealed moderate bilateral pleural effusions, anasarca diverticulosis without evidence of inflammation. Plain film chest x-ray revealed pulmonary edema and large bilateral pleural effusions. General: Alert, Cooperative, No apparent distress HEENT: Atraumatic, PERRLA, Normocephalic Oral: No Gingival or Mucosal Lesions/ Ulcerations Neck: Supple, No Nodes, Trachea Midline Lungs: No rhonchi, No wheeze, No rales, Diminished Cardiovascular: Normal S1, Normal S2, Irregular Rate, Murmur, No rub noted, No Gallop Abdomen: Bowel Sounds Present, Soft, Non Tender Extremities: No clubbing, No cyanosis, Edema Skin: - - No significant change from previous. Musculoskeletal: Cachexia, Muscle Wasting Lymphatic: No Cervical, Supraclavicular, or Inguinal Adenopathy Neurological: Neuro grossly intact Psych/Mental Status: Normal Affect, Appropriate Vital Signs Temp Pulse Resp BP Pulse Ox 99.1 F 71 22 H 135/55 H 93 07/20/17 02:00 07/20/17 03:00 07/20/17 02:00 07/20/17 02:00 07/20/17 02:00 Oxygen Flow Rate (L/min) 3 Oxygen Delivery Method Room Air Weight: 131 lb 6.328 oz Body Mass Index (BMI) 27.1 Intake and Output for Last 24 Hours 07/18/17 07/19/17 07/20/17 23:59 23:59 23:59 Intake Total 1021 / 1021 876 / 876 120 / 120 Output Total 4438 / 4438 1974 200 / 200 Balance -3417 / -3417 -1099 / -1099 -80 / -80 Labs (Last 48 Hours) 07/18/17 07/18/17 07/18/17 11:35 17:21 23:57 WBC RBC Hgb Hct MCV MCH MCHC RDW RDW Differential Plt Count MPV PT INR Sodium Potassium Chloride Carbon Dioxide Anion Gap BUN Creatinine Estim Creat Clear Calc Est GFR (MDRD) Af Amer Est GFR (MDRD) Non-Af BUN/Creatinine Ratio Glucose Calcium POC Glucose 144 H 114 H 106 07/19/17 07/19/17 07/19/17 04:30 04:30 04:30 WBC 8.1 RBC 3.97 L Hgb 12.2 Hct 38.2 MCV 96.2 MCH 30.7 MCHC 31.9 L RDW 15.4 H RDW Differential 51.9 H Plt Count 358 MPV 9.5 PT 31.5 H INR 3.0 Sodium 145 Potassium 2.3 L* Chloride 97 L Carbon Dioxide 41.0 H Anion Gap 7 BUN 35 H Creatinine 0.65 Estim Creat Clear Calc 34.42 Est GFR (MDRD) Af Amer 112 Est GFR (MDRD) Non-Af 93 BUN/Creatinine Ratio 53.6 H Glucose 93 Calcium 8.1 L POC Glucose 07/19/17 07/19/17 07/20/17 06:08 15:30 05:35 WBC 7.8 RBC 4.15 L Hgb 12.9 Hct 40.6 MCV 97.8 MCH 31.1 MCHC 31.8 L RDW 15.5 H RDW Differential 53.5 H Plt Count 403 MPV 9.6 PT INR Sodium Potassium 2.9 L Chloride Carbon Dioxide Anion Gap BUN Creatinine Estim Creat Clear Calc Est GFR (MDRD) Af Amer Est GFR (MDRD) Non-Af BUN/Creatinine Ratio Glucose Calcium POC Glucose 103 07/20/17 07/20/17 05:35 05:35 WBC RBC Hgb Hct MCV MCH MCHC RDW RDW Differential Plt Count MPV PT 34.0 H INR 3.3 Sodium 148 H Potassium 2.6 L* Chloride 101 Carbon Dioxide 42.0 H Anion Gap 5 BUN 33 H Creatinine 0.56 Estim Creat Clear Calc 34.42 Est GFR (MDRD) Af Amer 134 Est GFR (MDRD) Non-Af 111 BUN/Creatinine Ratio 58.7 H Glucose 107 H Calcium 8.1 L POC Glucose Microbiology 07/19/17 20:55 Stool C. difficile DNA Amplification - Final Toxigenic C. difficile DNA 07/16/17 08:15 Wound - Head Gram Stain - Final 07/16/17 08:15 Wound - Head Wound Culture - Final Coag Negative Staph Gram positive leslie 07/16/17 11:40 Blood Culture (Wb) - Right Forearm Blood Culture - Preliminary No growth in 48 hours. 07/16/17 11:20 Blood Culture (Wb) - Anticubital Right Blood Culture - Preliminary No growth in 48 hours. 07/16/17 14:35 Sputum, Induced/Lukens Gram Stain - Final 07/16/17 14:35 Sputum, Induced/Lukens Respiratory Culture - Final 07/16/17 11:50 Urine Catheter - Grady Urine Culture - Final Culture exhibits no growth. Clinical Impression(s) from Imaging Studies Abdomen/Pelvis CT 07/15/17 23:00 IMPRESSION: Severe cardiomegaly persistent moderate bilateral effusions body anasarca ascites and a protrusive appearance of the abdomen with a diastases of the rectus muscle. Atherosclerotic disease of the aorta Diverticulosis no evidence of diverticulitis. There are stable stones involving the right renal pelvis which is thought to likely be vascular rather than part of the ureter. Electronically Signed: Zoila Marquis MD at 23:51 EDT Tel , Service support , Chest X-Ray 07/15/17 23:25 IMPRESSION: Large worsening bilateral effusions atelectasis consider CHF. Cardiomegaly cardiac valvular ring. Electronically Signed: Zoila Marquis MD at 23:59 EDT Tel , Service support , Chest X-Ray 07/16/17 00:11 IMPRESSION: Status post intubation and NG tube lines in satisfactory position. Persistent bilateral effusions atelectasis. Electronically Signed: Zoila Marquis MD at 1:22 EDT Tel , Service support , Chest X-Ray 07/16/17 05:55 IMPRESSION: Consider congestive heart failure unchanged. Support lines and tubes in their expected locations. Endotracheal tube tip 1.5 cm above the yomaira with the chin down. Electronically Signed: Frederick Suarez MD at 5:18 EDT , Service support , Chest X-Ray 07/17/17 08:04 IMPRESSION: Essentially stable examination. The tip of the endotracheal tube is at the level of the yomaira. This should be withdrawn approximately 2.5 cm. Electronically Signed: Segundo Zamarripa MD at 9:24 EDT Tel [phone], Service support , Chest X-Ray 07/18/17 10:50 IMPRESSION: Residual CHF although this has improved as compared to prior study. Residual bilateral pleural effusions with underlying atelectasis. Electronically Signed: Segundo Zamarripa MD at 14:30 EDT Tel [phone], Service support , Medical Necessity - Tobacco Use Smoking Status: Never smoker Tobacco Use: Non-smoker Assessment/Plan RECOMMENDATIONS: 1. Continue antibiotic treatment of C. difficile colitis 2. Recommend de-escalation of diuretic regimen, given development of contraction alkalosis 3. Continue Coumadin 4. Aggressive electrolyte repletion. 5. Physical therapy to work with patient 6. Encourage incentive spirometer use IMPRESSIONS: 1. Acute respiratory failure Likely secondary to decompensated heart failure. Following volume optimization, the patient was able to be liberated from mechanical ventilation. Her diuretic regimen is currently being managed by cardiology. However, would recommend de-escalation in her Lasix regimen as her serum bicarbonate continues to climb. She is maintaining appropriate oxygen saturations on room air. Encourage incentive spirometer use and mobilize patient as tolerated. Perform walking oximetry study prior to consideration for discharge from the hospital. 2. Decompensated heart failure/troponin elevation/atrial fibrillation/status post mitral and tricuspid valve repair/aortic stenosis Cardiology is following. Continue current medical management as noted above. Continue daily Coumadin regimen and check INR. 3. Questionable PEREYRA cirrhosis The patient's cirrhosis history is not clear. The patient reportedly does not see a dedicated liver specialist. 4. Acute kidney injury Improved. Potentially related to attempts at volume optimization. Creatinine remains stable. Will continue to monitor. No indication for renal replacement therapy at this time. 5. Hypokalemia Aggressive electrolyte repletion as indicated. 6. C. difficile colitis Continue treatment with p.o. vancomycin as ordered. 7. Advanced age and deconditioning/malnutrition and cachexia Complicates care, management, recovery and prognosis. Physical therapy to work with patient. This note was generated with [employer] dictation software. It may contain incorrect words, spelling, and punctuation that were not noted in checking the note before signing. Code Visit Inpatient E&M: 88802 [facility] L2
[2017-07-20] MEDS: Albuterol 2.5 MG/3 ML VIAL.NEB. INHALATION ×4 (07:03→19:42)
--- NOTE | 2017-07-20 07:31 | PCM.PN.HOSP ---
Subjective: Patient apparently did experience watery diarrhea during the evening stool for C. difficile assay came back positive patient subsequently placed in enteric isolation started on p.o. vancomycin Objective: GENERAL: Awake not in distress HEENT: Excoriation on the scalp with areas of dry vesicles NECK; supple, normal thyroid, CHEST: Diminished to auscultation bilaterally, HEART: Regular S1 S2, no audible murmurs ABDOMEN: soft, non-tender, normoactive bowel sounds, RECTAL: deferred EXTREMITIES: bipedal edema no clubbing, no cyanosis. MANAGER STRATEGIC DEVELOPMENT: Awake without lateralizing signs SKIN:As described above, Vitals/I&O's: Vital Signs Temp Pulse Resp BP Pulse Ox 99.1 F 67 16 135/55 H 93 07/20/17 02:00 07/20/17 07:03 07/20/17 07:03 07/20/17 02:00 07/20/17 02:00 Oxygen Flow Rate (L/min) 3 Oxygen Delivery Method Room Air Weight: 59.6 kg Body Mass Index (BMI) 27.1 Intake and Output for Last 24 Hours 07/18/17 07/19/17 07/20/17 23:59 23:59 23:59 Intake Total 1021 / 1021 876 / 876 120 / 120 Output Total 4438 / 4438 1974 / 1974 200 / 200 Balance -3417 / -3417 -1099 / -1099 -80 / -80 Microbiology Past 72 Hours 07/19/17 20:55 Stool C. difficile DNA Amplification - Final Toxigenic C. difficile DNA 07/16/17 08:15 Wound - Head Gram Stain - Final 07/16/17 08:15 Wound - Head Wound Culture - Final Coag Negative Staph Gram positive leslie 07/16/17 11:40 Blood Culture (Wb) - Right Forearm Blood Culture - Preliminary No growth in 48 hours. 07/16/17 11:20 Blood Culture (Wb) - Anticubital Right Blood Culture - Preliminary No growth in 48 hours. 07/16/17 14:35 Sputum, Induced/Lukens Gram Stain - Final 07/16/17 14:35 Sputum, Induced/Lukens Respiratory Culture - Final 07/16/17 11:50 Urine Catheter - Grady Urine Culture - Final Culture exhibits no growth. Laboratory Results 07/19/17 15:30: Potassium 2.9 L 07/20/17 05:35: WBC 7.8, RBC 4.15 L, Hgb 12.9, Hct 40.6, MCV 97.8, MCH 31.1, MCHC 31.8 L, RDW 15.5 H, RDW Differential 53.5 H, Plt Count 403, MPV 9.6 07/20/17 05:35: PT 34.0 H, INR 3.3 07/20/17 05:35: Sodium 148 H, Potassium 2.6 L*, Chloride 101, Carbon Dioxide 42.0 H, Anion Gap 5, BUN 33 H, Creatinine 0.56, Estim Creat Clear Calc 34.42, Est GFR (MDRD) Af Amer 134, Est GFR (MDRD) Non-Af 111, BUN/Creatinine Ratio 58.7 H, Glucose 107 H, Calcium 8.1 L Current Medications Acetaminophen (Tylenol) 650 mg PO Q6H PRN PRN PRN Reason: Non-cardiac pain (mod-severe) Last Admin: 07/20/17 05:27 Dose: 650 mg Albuterol Sulfate (Ventolin Aerosols) 2.5 mg INHALATION Q4HWA.RT [facility] Last Admin: 07/20/17 07:03 Dose: 2.5 mg Dextrose (D50w Syringe) 0 gm IV X1 PRN; Protocol PRN Reason: Hypoglycemia Famotidine (Pepcid) 20 mg PO BID [facility] Last Admin: 07/19/17 20:57 Dose: 20 mg Furosemide (Lasix) 40 mg IV BID@1000,1800 [facility] Last Admin: 07/19/17 17:19 Dose: 40 mg Glucagon () 1 mg IM .X1 PRN PRN Reason: Hypoglycemia Hydralazine HCl (Apresoline Iv) 10 mg IV Q4H PRN PRN PRN Reason: SBP > 160 Sodium Chloride () 250 mls @ 15 mls/hr IV .[id number] PRN PRN Reason: SALINE FLUSH Potassium Chloride 40 meq/ (Sodium Chloride) 520 mls @ 130 mls/hr IV .Q4H [facility] Stop: 07/20/17 11:04 Lisinopril (Zestril) 2.5 mg PO DAILY [facility] Last Admin: 07/19/17 17:31 Dose: 2.5 mg Magnesium Hydroxide (Milk Of Magnesia) 30 ml PO DAILY PRN PRN PRN Reason: Constipation Ondansetron HCl (Zofran) 4 mg IV Q8H PRN PRN PRN Reason: NAUSEA Potassium Chloride (K-Dur) 40 meq PO BIDCM [facility] Promethazine HCl (Phenergan Iv) 12.5 mg IV Q6H PRN PRN PRN Reason: NAUSEA/VOMITING Sodium Chloride () 5 - 30 ml IV UD PRN PRN Reason: SALINE FLUSH Last Admin: 07/20/17 05:31 Dose: 10 ml Spironolactone (Aldactone) 25 mg PO DAILY [facility] Last Admin: 07/19/17 14:09 Dose: 25 mg Vancomycin HCl (Vancomycin 125mg/5ml Susp) 125 mg PO Q6 [facility] Last Admin: 07/20/17 05:27 Dose: 125 mg Warfarin Sodium (Coumadin (Pbkc)) 3 mg PO DAILY@1700 [facility] Last Admin: 07/19/17 17:18 Dose: 3 mg Medical Necessity - Tobacco Use Smoking Status: Never smoker Tobacco Use: Non-smoker Assessment/Plan Patient is a 77 year old lady with past medical history sent on for CAD, systolic congestive heart failure cirrhosis of the liver secondary to nonalcoholic fatty liver disease A. fib who presented with abdominal pain and bloating, progressive shortness of breath. Patient apparently desaturated while is in the emergency department was intubated and subsequently sent to the intensive care unit for further management 1. Acute Hypoxic and Hypercarbic Respiratory Failure secondary to Acute Decompensated Systolic CHF: Admitted to the intensive care unit currently on the vent management deferred to pulmonary medicine patient was started on Lasix drip; echo obtained demonstrated LVEF is 10-15% with severe global hypokinesis, severe left atrial enlargement, RVSP of at least 43 mmHg, patient did respond with significant diuresis after metolazone was added to her regimen. Was transiently placed on dobutamine drip which has since been weaned off; weaned off the vent on 07/18/2017. Diuretic management adjusted on 07/20/2017 as a result of contraction alkalosis 2. Valvular heart disease: She of mitral valve replacement with [employer], tricuspid valve repair. Patient is on systemic anticoagulation with Coumadin INR was subtherapeutic on admission catheter and heparin was within for INR to become therapeutic (2.5-3.5) patient also has history of severe aortic stenosis seen by cardiology recommendation is for possible consideration for TAVR down the line medically stable 3. CAD with previous CABG 4. Chronic A. fib 5. Hypertension-blood pressure controlled, 6. Dyslipidemia-history 7. 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 Recent varicella zoster involving the ophthalmic branch of the 8th cranial nerve patient has healing vesicles in various stage 9. Severe protein calorie malnutrition evidenced by hypoalbuminemia loss of flaccid muscle. Consult was placed to dietitian on admission 10. Diabetes mellitus type 2 managed with diet 11. DVT Prophylaxis: coumadin 12. Hypokalemia secondary to use of diuretics repleted per protocol 13. C. difficile colitis patient is on p.o. vancomycin Code Visit Inpatient E&M: 32972 [facility] Hosp L3
--- NOTE | 2017-07-20 07:36 | PN_ITS ---
Subjective: Patient apparently did experience watery diarrhea during the evening stool for C. difficile assay came back positive patient subsequently placed in enteric isolation started on p.o. vancomycin Objective: GENERAL: Awake not in distress HEENT: Excoriation on the scalp with areas of dry vesicles NECK; supple, normal thyroid, CHEST: Diminished to auscultation bilaterally, HEART: Regular S1 S2, no audible murmurs ABDOMEN: soft, non-tender, normoactive bowel sounds, RECTAL: deferred EXTREMITIES: bipedal edema no clubbing, no cyanosis. NEWS LIBRARIAN: Awake without lateralizing signs SKIN:As described above, Vitals/I&O's: Vital Signs Temp Pulse Resp BP Pulse Ox 99.1 F 67 16 135/55 H 93 07/20/17 02:00 07/20/17 07:03 07/20/17 07:03 07/20/17 02:00 07/20/17 02:00 Oxygen Flow Rate (L/min) 3 Oxygen Delivery Method Room Air Weight: 59.6 kg Body Mass Index (BMI) 27.1 Intake and Output for Last 24 Hours 07/18/17 07/19/17 07/20/17 23:59 23:59 23:59 Intake Total 1021 / 1021 876 / 876 120 / 120 Output Total 4438 / 4438 1974 / 1974 200 / 200 Balance -3417 / -3417 -1099 / -1099 -80 / -80 Microbiology Past 72 Hours 07/19/17 20:55 Stool C. difficile DNA Amplification - Final Toxigenic C. difficile DNA 07/16/17 08:15 Wound - Head Gram Stain - Final 07/16/17 08:15 Wound - Head Wound Culture - Final Coag Negative Staph Gram positive leslie 07/16/17 11:40 Blood Culture (Wb) - Right Forearm Blood Culture - Preliminary No growth in 48 hours. 07/16/17 11:20 Blood Culture (Wb) - Anticubital Right Blood Culture - Preliminary No growth in 48 hours. 07/16/17 14:35 Sputum, Induced/Lukens Gram Stain - Final 07/16/17 14:35 Sputum, Induced/Lukens Respiratory Culture - Final 07/16/17 11:50 Urine Catheter - Grady Urine Culture - Final Culture exhibits no growth. Laboratory Results 07/19/17 15:30: Potassium 2.9 L 07/20/17 05:35: WBC 7.8, RBC 4.15 L, Hgb 12.9, Hct 40.6, MCV 97.8, MCH 31.1, MCHC 31.8 L, RDW 15.5 H, RDW Differential 53.5 H, Plt Count 403, MPV 9.6 07/20/17 05:35: PT 34.0 H, INR 3.3 07/20/17 05:35: Sodium 148 H, Potassium 2.6 L*, Chloride 101, Carbon Dioxide 42.0 H, Anion Gap 5, BUN 33 H, Creatinine 0.56, Estim Creat Clear Calc 34.42, Est GFR (MDRD) Af Amer 134, Est GFR (MDRD) Non-Af 111, BUN/Creatinine Ratio 58.7 H, Glucose 107 H, Calcium 8.1 L Current Medications Acetaminophen (Tylenol) 650 mg PO Q6H PRN PRN PRN Reason: Non-cardiac pain (mod-severe) Last Admin: 07/20/17 05:27 Dose: 650 mg Albuterol Sulfate (Ventolin Aerosols) 2.5 mg INHALATION Q4HWA.RT [facility] Last Admin: 07/20/17 07:03 Dose: 2.5 mg Dextrose (D50w Syringe) 0 gm IV X1 PRN; Protocol PRN Reason: Hypoglycemia Famotidine (Pepcid) 20 mg PO BID [facility] Last Admin: 07/19/17 20:57 Dose: 20 mg Furosemide (Lasix) 40 mg IV BID@1000,1800 [facility] Last Admin: 07/19/17 17:19 Dose: 40 mg Glucagon () 1 mg IM .X1 PRN PRN Reason: Hypoglycemia Hydralazine HCl (Apresoline Iv) 10 mg IV Q4H PRN PRN PRN Reason: SBP > 160 Sodium Chloride () 250 mls @ 15 mls/hr IV .[id number] PRN PRN Reason: SALINE FLUSH Potassium Chloride 40 meq/ (Sodium Chloride) 520 mls @ 130 mls/hr IV .Q4H [facility] Stop: 07/20/17 11:04 Lisinopril (Zestril) 2.5 mg PO DAILY [facility] Last Admin: 07/19/17 17:31 Dose: 2.5 mg Magnesium Hydroxide (Milk Of Magnesia) 30 ml PO DAILY PRN PRN PRN Reason: Constipation Ondansetron HCl (Zofran) 4 mg IV Q8H PRN PRN PRN Reason: NAUSEA Potassium Chloride (K-Dur) 40 meq PO BIDCM [facility] Promethazine HCl (Phenergan Iv) 12.5 mg IV Q6H PRN PRN PRN Reason: NAUSEA/VOMITING Sodium Chloride () 5 - 30 ml IV UD PRN PRN Reason: SALINE FLUSH Last Admin: 07/20/17 05:31 Dose: 10 ml Spironolactone (Aldactone) 25 mg PO DAILY [facility] Last Admin: 07/19/17 14:09 Dose: 25 mg Vancomycin HCl (Vancomycin 125mg/5ml Susp) 125 mg PO Q6 [facility] Last Admin: 07/20/17 05:27 Dose: 125 mg Warfarin Sodium (Coumadin (Pbkc)) 3 mg PO DAILY@1700 [facility] Last Admin: 07/19/17 17:18 Dose: 3 mg Medical Necessity - Tobacco Use Smoking Status: Never smoker Tobacco Use: Non-smoker Assessment/Plan Patient is a 77 year old lady with past medical history sent on for CAD, systolic congestive heart failure cirrhosis of the liver secondary to nonalcoholic fatty liver disease A. fib who presented with abdominal pain and bloating, progressive shortness of breath. Patient apparently desaturated while is in the emergency department was intubated and subsequently sent to the intensive care unit for further management 1. Acute Hypoxic and Hypercarbic Respiratory Failure secondary to Acute Decompensated Systolic CHF: Admitted to the intensive care unit currently on the vent management deferred to pulmonary medicine patient was started on Lasix drip; echo obtained demonstrated LVEF is 10-15% with severe global hypokinesis, severe left atrial enlargement, RVSP of at least 43 mmHg, patient did respond with significant diuresis after metolazone was added to her regimen. Was transiently placed on dobutamine drip which has since been weaned off; weaned off the vent on 07/18/2017. Diuretic management adjusted on 07/20/2017 as a result of contraction alkalosis 2. Valvular heart disease: She of mitral valve replacement with [employer], tricuspid valve repair. Patient is on systemic anticoagulation with Coumadin INR was subtherapeutic on admission catheter and heparin was within for INR to become therapeutic (2.5-3.5) patient also has history of severe aortic stenosis seen by cardiology recommendation is for possible consideration for TAVR down the line medically stable 3. CAD with previous CABG 4. Chronic A. fib 5. Hypertension-blood pressure controlled, 6. Dyslipidemia-history 7. 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 Recent varicella zoster involving the ophthalmic branch of the 8th cranial nerve patient has healing vesicles in various stage 9. Severe protein calorie malnutrition evidenced by hypoalbuminemia loss of flaccid muscle. Consult was placed to dietitian on admission 10. Diabetes mellitus type 2 managed with diet 11. DVT Prophylaxis: coumadin 12. Hypokalemia secondary to use of diuretics repleted per protocol 13. C. difficile colitis patient is on p.o. vancomycin Code Visit Inpatient E&M: [id number] [facility] Hosp L3
[2017-07-20] MEDS: Furosemide 40 MG/4 ML Vial IV ×2 (07:50→17:17)
[2017-07-20] MEDS: Spironolactone 25 MG Tablet PO (07:50)
[2017-07-20] MEDS: Lisinopril 2.5 MG Tablet PO (07:51)
[2017-07-20] MEDS: Famotidine 20 MG Tablet PO ×2 (07:52→21:18)
--- NOTE | 2017-07-20 08:16 | PCM.PN.CARD ---
Subjectve: Denies any complaints. No apparent distress Objective: Vital Signs Temp Pulse Resp BP Pulse Ox 99.1 F 67 16 135/55 H 93 07/20/17 02:00 07/20/17 07:03 07/20/17 07:03 07/20/17 02:00 07/20/17 02:00 Oxygen Flow Rate (L/min) 3 Oxygen Delivery Method Room Air Weight: 59.6 kg Body Mass Index (BMI) 27.1 Intake and Output for Last 24 Hours 07/18/17 07/19/17 07/20/17 23:59 23:59 23:59 Intake Total 1021 / 1021 876 / 876 120 / 120 Output Total 4438 / 4438 1974 200 / 200 Balance -3417 / -3417 -1099 / -1099 -80 / -80 General: Awake, Alert, Oriented x 3 HEENT: Atraumatic Oral: Moist Mucosa Neck: Supple Lungs: Clear to auscultation Cardiovascular: Snyder Prosthetic S1 - 3/6 systolic murmur at apex and base Extremities: Bilateral Edema +1 07/19/17 15:30: Potassium 2.9 L 07/20/17 05:35: WBC 7.8, RBC 4.15 L, Hgb 12.9, Hct 40.6, MCV 97.8, MCH 31.1, MCHC 31.8 L, RDW 15.5 H, RDW Differential 53.5 H, Plt Count 403, MPV 9.6 07/20/17 05:35: PT 34.0 H, INR 3.3 07/20/17 05:35: Sodium 148 H, Potassium 2.6 L*, Chloride 101, Carbon Dioxide 42.0 H, Anion Gap 5, BUN 33 H, Creatinine 0.56, Est GFR (MDRD) Af Amer 134, Est GFR (MDRD) Non-Af 111, BUN/Creatinine Ratio 58.7 H, Glucose 107 H, Calcium 8.1 L Rhythm: EKG: ECHO: Stress Test: Cardiac Cath: PCI: CT Surgery: Holter monitor: EPS: PPM: CXR: Chest CT Scan: Medical Necessity - Tobacco Use Smoking Status: Never smoker Tobacco Use: Non-smoker Assessment/Plan 1. Acute on chronic congestive heart failure. Ejection fraction 10-15%. Started on Aldactone. Resume beta-lili low-dose. Restart lisinopril 2. History of valvular heart disease status post prosthetic mitral valve. INR management as per pharmacy 3. History of atrial fibrillation 4. History of nonobstructive coronary artery disease 5. History of cirrhosis liver 6. Hypokalemia. Electrolyte management as per internal medicine next 7. Diabetes mellitus 6. History of shingles 7. Area with positive C. difficile
[2017-07-20] MEDS: Metoprolol Tartrate 25 MG Tablet 12.5 MG PO ×2 (09:51→21:18)
--- NOTE | 2017-07-20 11:21 | NURSING ---
report called to [facility] for transfer to room 107, family present aware of room number
[2017-07-20 14:01] LABS: Potassium 3.5 mmol/L (3.5-5.1)
[2017-07-21] VITALS (17 sets, daily range): BP systolic 125–145; BP diastolic 57–73; PULSE 60–85; RESP 16–18; TEMP 36.7–37.1; O2SAT 93–96
[2017-07-21 06:16] LABS: Anion Gap 4 (5-15); BUN 28 mg/dL (7-18); BUN/Creat Ratio 52.4 RATIO (10-20); Calcium,Total 8.1 mg/dL (8.5-10.1); Chloride 106 mmol/L (98-107); Creatinine, Serum 0.53 mg/dL (0.55-1.02); EST Glomerular Filtration Rate 117 mL/min (>60); Est Glom Filt Rate - Afr Amer 142 mL/min (>60); Estimated Creatinine Clearance 34.42 ml/min; Glucose 98 mg/dL (74-106); Potassium 3.7 mmol/L (3.5-5.1); Sodium Level 149 mmol/L (136-145)
[2017-07-21] MEDS: Albuterol 2.5 MG/3 ML VIAL.NEB. INHALATION ×4 (07:03→19:32)
--- NOTE | 2017-07-21 08:04 | PN_ITS ---
Subjective: Chief complaint: Follow-up after admission for acute decompensated systolic CHF , acute hypoxic respiratory failure as well as acute C. difficile colitis. Patient seen and examined. No acute events overnight. She did mention that her breathing is getting better. Still complaining of mild cough without sputum production. There is improving. Denied abdominal pain, nausea, vomiting , fever or chills. Her vital signs are stable. - Physical Exam General: Alert, Oriented x3, Cooperative, No apparent distress HEENT: Atraumatic, PERRLA, EOMI Oral: Moist Mucosa, No Gingival or Mucosal Lesions/ Ulcerations Neck: Supple, No JVD, Negative Carotid Bruits, Trachea Midline, Thyroid Normal Size and Texture Lungs: Clear to auscultation, No rhonchi, No wheeze, No rales, Diminished Cardiovascular: Regular rate, Regular Rhythm, Normal S1, Normal S2, PMI Normal Abdomen: Bowel Sounds Present, Soft, Non Tender, Non-Distended, No Hepato- splenomegaly Extremities: No clubbing, No cyanosis, Edema - + Edema. Skin: No rashes, No breakdown Lymphatic: No Cervical, Supraclavicular, or Inguinal Adenopathy Neurological: Cranial nerves II-XII grossly intact, Motor Exam 5/5 strength throughout Psych/Mental Status: Normal Affect, Appropriate Vital Signs Temp Pulse Resp BP Pulse Ox 98.4 F 71 16 145/68 H 96 07/21/17 03:11 07/21/17 06:54 07/21/17 03:11 07/21/17 03:11 07/21/17 03:11 Oxygen Flow Rate (L/min) 3 Oxygen Delivery Method Room Air Weight: 133 lb 2.547 oz Body Mass Index (BMI) 27.1 Intake and Output for Last 24 Hours 07/19/17 07/20/17 07/21/17 23:59 23:59 23:59 Intake Total 876 / 876 1292 / 1292 60 / 60 Output Total 1974 / 1974 950 / 950 575 / 575 Balance -1099 / -1099 342 / 342 -515 / -515 Microbiology Past 72 Hours 07/19/17 20:55 C. difficile DNA Amplification - Final Stool Toxigenic C. difficile DNA 07/16/17 08:15 Gram Stain - Final Wound - Head Wound Culture - Final Coag Negative Staph Gram positive leslie 07/16/17 11:40 Blood Culture - Preliminary Blood Culture (Wb) - Right Forearm No growth in 48 hours. 07/16/17 11:20 Blood Culture - Preliminary Blood Culture (Wb) - Anticubital Right No growth in 48 hours. 07/16/17 14:35 Gram Stain - Final Sputum, Induced/Lukens Respiratory Culture - Final 07/16/17 11:50 Urine Culture - Final Urine Catheter - Grady Culture exhibits no growth. Laboratory Tests Past 24 Hrs 07/20/17 07/21/17 13:17 05:20 Sodium 149 H Potassium 3.5 3.7 Chloride 106 Carbon Dioxide 39.0 H Anion Gap 4 L BUN 28 H Creatinine 0.53 L Estim Creat Clear Calc 34.42 Est GFR (MDRD) Af Amer 142 Est GFR (MDRD) Non-Af 117 BUN/Creatinine Ratio 52.4 H Glucose 98 Calcium 8.1 L Medical Necessity - Tobacco Use Smoking Status: Never smoker Tobacco Use: Non-smoker Assessment/Plan This is a 77 years old female patient admitted because of shortness of breath, orthopnea, weight gain, leg edema, abdominal pain and distention and she was found to have acute decompensated systolic CHF complicated by acute hypoxic and hypercapnic respiratory failure and later, she developed acute C. difficile colitis. #1 acute decompensated systolic CHF: She is on IV Lasix, lisinopril and metoprolol. 2D echocardiogram revealed ejection fraction of 10-15%, severe global hypokinesis of the left ventricle. Her symptoms have been slowly improving, shortness of breath is not getting better and her pulse ox is 95% on room air. Her other vital signs are stable. Plan: DC IV Lasix, start oral Lasix, continue other medications. Awaiting insurance approval for placement to alf facility after discussion with the family. #2 acute hypoxic and hypercapnic respiratory failure: Initially, patient required oxygen up to 3 L. With IV diuresis, her symptoms improved and today, she has been tending her pulse ox on room air. Improving. #3 acute C. difficile colitis: Started on oral vancomycin yesterday. Patient still having some diarrhea, denies abdominal pain, fever chills. Plan to continue same treatment. #4 hypokalemia: Secondary to IV Lasix and diarrhea. Potassium replaced and corrected. Today's potassium is 2.7. #4 valvular heart disease: She has mitral valve replacement with [employer] valve, tricuspid valve repair. 2D echocardiogram revealed no evidence of aortic stenosis, stable appearing mechanical mitral valve apparatus. #5 CAD status post CABG: Continue lisinopril, metoprolol and Coumadin. #6 chronic A. fib: Rate is controlled, continue metoprolol for rate control and Coumadin for anticoagulation. Repeat INR tomorrow morning. #7 hypertension: Blood pressure stable, continue lisinopril and metoprolol, IV hydralazine as needed. #8 type 2 diabetes mellitus: Diet-controlled, blood sugar has been stable. #9 DVT prophylaxis: She is on Coumadin. Other chronic medical problems: #1 hyperlipidemia. #2 nonalcoholic liver cirrhosis. #3 severe protein calorie malnutrition. This note was generated with [employer] dictation software. It may contain incorrect words, spelling, and punctuation that were not noted in checking the note before signing. Code Visit Inpatient E&M: 65959 [facility] Hosp L2
--- NOTE | 2017-07-21 08:26 | PCM.PROGNOTE ---
Subjective: Patient seen and examined. She is sitting up in the chair in no acute distress. Patient maintaining appropriate saturations on room air. Denies any abdominal pain, nausea, or vomiting. She is still having diffuse diarrhea. Still feeling weak. Objective: Recent lab and culture data reviewed. Potassium normalized with supplementation. Patient remains afebrile and hemodynamically stable. Stool positive for C. difficile. Blood and urine cultures were negative, as well as sputum culture. Culture from wound on head was positive for coag negative staph and gram-positive rods-possible skin contamination. - Physical Exam General: Alert, Oriented x3, Cooperative, No apparent distress, - - thin, frail HEENT: Atraumatic, Normocephalic Oral: Moist Mucosa Neck: Supple, No Nodes, Trachea Midline Lungs: No rhonchi, No wheeze, No rales, Diminished Cardiovascular: Normal S1, Normal S2, Irregular Rate, Murmur Abdomen: Soft, Non Tender, Non-Distended, Hyperactive Bowel Sounds Extremities: No clubbing, No cyanosis, No edema Skin: No rashes, - - serous filled blisters to shins, wound to R head covered by dsg Musculoskeletal: No Tenderness to Palpation of Joints or Extremities, Cachexia, Muscle Wasting Lymphatic: No Cervical, Supraclavicular, or Inguinal Adenopathy Neurological: Neuro grossly intact Psych/Mental Status: Alert and oriented to time, place, person, mood and affect Vital Signs Temp Pulse Resp BP Pulse Ox 98.4 F 76 16 145/68 H 93 07/21/17 03:11 07/21/17 07:03 07/21/17 07:03 07/21/17 03:11 07/21/17 07:03 Oxygen Flow Rate (L/min) 3 Oxygen Delivery Method Nasal Cannula Weight: 133 lb 2.547 oz Body Mass Index (BMI) 27.1 Intake and Output for Last 24 Hours 07/19/17 07/20/17 07/21/17 23:59 23:59 23:59 Intake Total 876 / 876 1292 / 1292 60 / 60 Output Total 1974 / 1974 950 / 950 575 / 575 Balance -1099 / -1099 342 / 342 -515 / -515 Microbiology Past 72 Hours 07/19/17 20:55 C. difficile DNA Amplification - Final Stool Toxigenic C. difficile DNA 07/16/17 08:15 Gram Stain - Final Wound - Head Wound Culture - Final Coag Negative Staph Gram positive leslie 07/16/17 11:40 Blood Culture - Preliminary Blood Culture (Wb) - Right Forearm No growth in 48 hours. 07/16/17 11:20 Blood Culture - Preliminary Blood Culture (Wb) - Anticubital Right No growth in 48 hours. 07/16/17 14:35 Gram Stain - Final Sputum, Induced/Lukens Respiratory Culture - Final 07/16/17 11:50 Urine Culture - Final Urine Catheter - Grady Culture exhibits no growth. Laboratory Tests Past 24 Hrs 07/20/17 07/21/17 13:17 05:20 Sodium 149 H Potassium 3.5 3.7 Chloride 106 Carbon Dioxide 39.0 H Anion Gap 4 L BUN 28 H Creatinine 0.53 L Estim Creat Clear Calc 34.42 Est GFR (MDRD) Af Amer 142 Est GFR (MDRD) Non-Af 117 BUN/Creatinine Ratio 52.4 H Glucose 98 Calcium 8.1 L Medical Necessity - Tobacco Use Smoking Status: Never smoker Tobacco Use: Non-smoker Assessment/Plan RECOMMENDATIONS: 1. Continue antibiotic treatment of C. difficile colitis 2. Continue Coumadin 3. Aggressive electrolyte repletion. 4. Continue PT/OT, ambulate as tolerated 5. Encourage incentive spirometer use 6. Ambulatory pulse oximetry prior to discharge, plan is for TCU IMPRESSIONS: 1. Acute respiratory failure Likely secondary to decompensated heart failure. Following volume optimization, the patient was extubated 07/18. Her diuretic regimen is currently being managed by cardiology. Diuretics have been de-escalated, patient did have evidence of contraction alkalosis. She is maintaining appropriate oxygen saturations on room air. Encourage incentive spirometer use and mobilize patient as tolerated. Perform walking oximetry study prior to consideration for discharge from the hospital. 2. Decompensated heart failure/troponin elevation/atrial fibrillation/status post mitral and tricuspid valve repair/aortic stenosis Cardiology is following. Continue current medical management as noted above. Continue daily Coumadin regimen and check INR. 3. Questionable PEREYRA cirrhosis The patient's cirrhosis history is not clear. The patient reportedly does not see a dedicated liver specialist. 4. Acute kidney injury Improved. Potentially related to attempts at volume optimization. Creatinine remains stable. Will continue to monitor. No indication for renal replacement therapy at this time. 5. Hypokalemia Improved. Aggressive electrolyte repletion as indicated. 6. C. difficile colitis Continue treatment with p.o. vancomycin as ordered. 7. Advanced age and deconditioning/malnutrition and cachexia Complicates care, management, recovery and prognosis. Physical therapy to work with patient. This note was generated with Jammcardation software. It may contain incorrect words, spelling, and punctuation that were not noted in checking the note before signing.
[2017-07-21] MEDS: Metoprolol Tartrate 25 MG Tablet 12.5 MG PO ×2 (09:27→21:11)
[2017-07-21] MEDS: Spironolactone 25 MG Tablet PO (09:27)
[2017-07-21] MEDS: Furosemide 40 MG Tablet PO ×2 (09:27→17:20)
[2017-07-21] MEDS: Famotidine 20 MG Tablet PO ×2 (09:27→21:11)
[2017-07-21] MEDS: Lisinopril 2.5 MG Tablet PO (09:28)
--- NOTE | 2017-07-21 10:02 | CASEMGMT ---
MILENA spoke with patient and she confirmed her plan is to go to [facility] TCU at d/c. MILENA called Gilma in TCU and asked her to start the pre-cert. Plan: [facility] TCU pending insurance approval. Melyssa GLASGOW
[2017-07-21] MEDS: Acetaminophen 325 MG Tablet 650 MG PO (21:22)
[2017-07-22] VITALS (10 sets, daily range): BP systolic 139–149; BP diastolic 65–82; PULSE 68–79; RESP 16–18; TEMP 36.9–37.3; O2SAT 93–95
[2017-07-22 06:33] LABS: International Normalized Ratio 2.6
[2017-07-22 06:45] LABS: Anion Gap 4 (5-15); BUN 25 mg/dL (7-18); BUN/Creat Ratio 55.4 RATIO (10-20); Chloride 106 mmol/L (98-107); Creatinine, Serum 0.45 mg/dL (0.55-1.02); EST Glomerular Filtration Rate 142 mL/min (>60); Est Glom Filt Rate - Afr Amer 172 mL/min (>60); Estimated Creatinine Clearance 34.42 ml/min; Glucose 94 mg/dL (74-106); Potassium 3.5 mmol/L (3.5-5.1); Sodium Level 147 mmol/L (136-145)
[2017-07-22] MEDS: Albuterol 2.5 MG/3 ML VIAL.NEB. INHALATION ×2 (06:53→10:35)
[2017-07-22 06:55] LABS: Absolute Lymphocyte Count 0.55 X10^3/ul (0.83-4.51); Absolute Neutrophil Count 4.3 X10^3/uL (2.0-7.7); Basophil# 0.02 X10^3/uL; Basophil% 0.3 % (0-1); Eosinophil# 0.28 X10^3/uL; Eosinophils% 4.9 % (0-5); Hematocrit 40.3 % (37-47); Hemoglobin 12.6 g/dl (12.0-15.0); Lymphocyte # 0.55 X10^3/ul (4.0); Lymphocyte % 9.5 % (19-41); Mean Corp Hgb Conc 31.3 g/gl (32-36); Mean Corpuscular Hgb 30.6 pg (27.0-32.0); Mean Corpuscular Volume 97.8 fL (81-99); Mean Platelet Vol. 9.2 fl (6.2-12.0); Monocyte# 0.64 X10^3/uL; Monocyte% 11.1 % (0-10); Neutrophil # 4.26 X10^3/uL (2.7-7.7); Neutrophil % 73.9 % (47-70); Platelet Count 377 K/mm3 (150-450); RBC Distribution Width CV 15.9 % (11.6-14.6); Red Blood Count 4.12 M/mm3 (4.2-5.4); White Blood Count 5.8 K/mm3 (4.4-11.0)
[2017-07-22 07:06] LABS: Differential Indicated SCAN CRITERIA MET; POSITIVE COUNT NO; POSITIVE DIFFERENTIAL YES; POSITIVE MORPHOLOGY NO
[2017-07-22 07:15] LABS: Differential Comment SCANNED
[2017-07-22] MEDS: Furosemide 40 MG Tablet PO (09:42)
[2017-07-22] MEDS: Famotidine 20 MG Tablet PO (09:42)
[2017-07-22] MEDS: Metoprolol Tartrate 25 MG Tablet 12.5 MG PO (09:42)
[2017-07-22] MEDS: Lisinopril 2.5 MG Tablet PO (09:42)
[2017-07-22] MEDS: Spironolactone 25 MG Tablet PO (09:42)
--- NOTE | 2017-07-22 10:08 | PCM.TXEXTCAR ---
- Diet 07/19/17 14:53 Diet: Cardiac/Low Cholesterol Food consistency:: Puree Liquid Consistency:: Regular/Thin Dietary Modifications:: Pureed Diet Is pt able to select menu?: No Diet Comments: chin tuck for all liquids, eat in upright position. remain upright 15 min - Routine Orders/Code Status Routine Lab Work: BMP, INR Code Status: Full Code - Wound(s) right anterior/lateral head Wound Type: nonhealing wound from shingles per family Dressing Change: Adaptic with dry dressing B/L shins Wound Type: Blisters - Suggestions for Active Care Change Position every (hours): 3 Hours to sit in a chair: 2 Times a day to sit in chair: 3 - Therapies Weight Bearing: Weight bearing as tolerated Physical Therapy: Eval and Treat Occupational Therapy: Eval and Treat Speech Therapy: Eval and Treat - Allergies/Procedures Done in Hospital Allergies/Adverse Reactions: Allergies cortisone Allergy (Verified 07/15/17 22:23) Unknown - Type of Care/Length of Stay Estimated LOS: Convalescent Care Less Than 30 days Type of Care Needed: Skilled Rehab Potential: Fair Prognosis: Fair - Additional Orders/Day of Discharge H&P will serve as current which was dated: 07/16/17 Day of Discharge: 07/22/17 - Dietary and Speech Recommendations Dietitian Recommendations/Changes: Suggest diet change to 1800 calorie, cardiac, low sodium, 1200 ml fluid retriction- consistency/texture as per NAIL ARTIST. - Follow Up Care Primary Care Physician: Warren Mendoza MD [Primary Care Provider] - Please follow up with your Primary Care Physician in: 1 week. Please Follow Up With: Masha Erazo MD When: please call his office.
--- NOTE | 2017-07-22 10:11 | TREXTCAR_ITS ---
- Diet 07/19/17 14:53 Diet: Cardiac/Low Cholesterol Food consistency:: Puree Liquid Consistency:: Regular/Thin Dietary Modifications:: Pureed Diet Is pt able to select menu?: No Diet Comments: chin tuck for all liquids, eat in upright position. remain upright 15 min - Routine Orders/Code Status Routine Lab Work: BMP, INR Code Status: Full Code - Wound(s) right anterior/lateral head Wound Type: nonhealing wound from shingles per family Dressing Change: Adaptic with dry dressing B/L shins Wound Type: Blisters - Suggestions for Active Care Change Position every (hours): 3 Hours to sit in a chair: 2 Times a day to sit in chair: 3 - Therapies Weight Bearing: Weight bearing as tolerated Physical Therapy: Eval and Treat Occupational Therapy: Eval and Treat Speech Therapy: Eval and Treat - Allergies/Procedures Done in Hospital Allergies/Adverse Reactions: Allergies cortisone Allergy (Verified 07/15/17 22:23) Unknown - Type of Care/Length of Stay Estimated LOS: Convalescent Care Less Than 30 days Type of Care Needed: Skilled Rehab Potential: Fair Prognosis: Fair - Additional Orders/Day of Discharge H&P will serve as current which was dated: 07/16/17 Day of Discharge: 07/22/17 - Dietary and Speech Recommendations Dietitian Recommendations/Changes: Suggest diet change to 1800 calorie, cardiac , low sodium, 1200 ml fluid retriction- consistency/texture as per CABINET AND TRIM INSTALLER. - Follow Up Care Primary Care Physician: Warren Mendoza MD [Primary Care Provider] - Please follow up with your Primary Care Physician in: 1 week. Please Follow Up With: Masha Erazo MD When: please call his office.
--- NOTE | 2017-07-22 15:30 | NURSING ---
REPORT GIVEN TO ELIJAH IN TCU. PATIENT GOING TO ROOM 18
--- NOTE | 2017-07-22 15:41 | CASEMGMT ---
Received insurance approval for patient to go to TCU. SW notified patient of this and that she will be going today. Her and another female were present. Plan: [facility] Melyssa GLASGOW
--- NOTE | 2017-07-22 16:20 | PCM.DC.SUM ---
Discharge Date and Diagnosis - Problem List Patient Problems: Active and Suspected Problems Shortness of breath (Acute) Abdominal pain (Acute) Acute respiratory failure (Acute) Acute on chronic systolic heart failure (Acute) Date of Admission: 07/16/17 Date of Discharge: 07/22/17 - Primary Discharge Diagnosis #1 acute decompensated systolic CHF. #2 acute hypoxic and hypercapnic respiratory failure. #3 acute C. difficile colitis. #4 hypokalemia. - Secondary Discharge Diagnosis Chronic Problems Congestive heart failure (Chronic) H/O mitral valve replacement with mechanical valve (Chronic) on coumadin Cirrhosis (Chronic) Hypertension (Chronic) GERD (gastroesophageal reflux disease) (Chronic) Atrial fibrillation (Chronic) CAD (coronary artery disease) (Chronic) Diabetes mellitus (Chronic) Cardiomyopathy (Chronic) H/O tricuspid valve repair (Chronic) Hyperlipidemia (Chronic) Anxiety and depression (Chronic) Hospital Course and Treatment Imaging Results: Clinical Impression(s) from Imaging Studies Abdomen/Pelvis CT 07/15/17 23:00 IMPRESSION: Severe cardiomegaly persistent moderate bilateral effusions body anasarca ascites and a protrusive appearance of the abdomen with a diastases of the rectus muscle. Atherosclerotic disease of the aorta Diverticulosis no evidence of diverticulitis. There are stable stones involving the right renal pelvis which is thought to likely be vascular rather than part of the ureter. Electronically Signed: Zoila Marquis MD at 23:51 EDT Tel , Service support , Chest X-Ray 07/15/17 23:25 IMPRESSION: Large worsening bilateral effusions atelectasis consider CHF. Cardiomegaly cardiac valvular ring. Electronically Signed: Zoila Marquis MD at 23:59 EDT Tel , Service support , Chest X-Ray 07/16/17 00:11 IMPRESSION: Status post intubation and NG tube lines in satisfactory position. Persistent bilateral effusions atelectasis. Electronically Signed: Zoila Marquis MD at 1:22 EDT Tel , Service support , Chest X-Ray 07/16/17 05:55 IMPRESSION: Consider congestive heart failure unchanged. Support lines and tubes in their expected locations. Endotracheal tube tip 1.5 cm above the yomaira with the chin down. Electronically Signed: Frederick Suarez MD at 5:18 EDT , Service support , Chest X-Ray 07/17/17 08:04 IMPRESSION: Essentially stable examination. The tip of the endotracheal tube is at the level of the yomaira. This should be withdrawn approximately 2.5 cm. Electronically Signed: Segundo Zamarripa MD at 9:24 EDT Tel [phone], Service support , Chest X-Ray 07/18/17 10:50 IMPRESSION: Residual CHF although this has improved as compared to prior study. Residual bilateral pleural effusions with underlying atelectasis. 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 Montague, critical care. Dr. Brasher/Dr. Erazo, cardiology. Operations: None Procedures: 2-D Echocardiogram, EKG Summary of Care Provided: Patient seen and examined on the day of discharge and appeared to be stable to be discharged to long term facility. Shortness of breath significantly improved compared to admission and she has been having this diarrhea. Denied abdominal pain, nausea vomiting. Denies fever chills. Overall, she is feeling much better. Her vital signs are stable, has been off oxygen and maintaining her pulse ox on room air. - Physical Exam General: Alert, Oriented x3, Cooperative, No apparent distress. HEENT: Atraumatic, PERRLA, EOMI. Neck: Supple, No JVD, Negative Carotid Bruits, Trachea Midline, Thyroid Normal. Lungs: Diminished breath sounds bilateral, otherwise clear, No rhonchi, No wheeze, No rales. Cardiovascular: Regular rate, Regular Rhythm, Normal S1, Normal S2, PMI Normal. Abdomen: Bowel Sounds Present, Soft, Non Tender, Non-Distended, No Hepato-splenomegaly. Extremities: No clubbing, No cyanosis, No edema Skin: No rashes, No breakdown Neurological: Neuro grossly intact Vital Signs are stable. Hospital course: This is a 77 years old female patient admitted because of shortness of breath, orthopnea, weight gain, leg edema, abdominal pain and distention and she was found to have acute decompensated systolic CHF complicated by acute hypoxic and hypercapnic respiratory failure and later, she developed acute C. difficile colitis. #1 acute decompensated systolic CHF: Initially, patient was admitted to the intensive care unit for acute respiratory failure secondary to acute decompensated systolic CHF, was intubated and was on mechanical ventilation. She was treated with IV Lasix, lisinopril and metoprolol. 2D echocardiogram revealed ejection fraction of 10-15%, severe global hypokinesis of the left ventricle. She was extubated successfully and her respiratory status improved slowly with diuresis. She was given empiric antibiotics for possible pneumonia because she developed low-grade fever and antibiotics were discontinued because patient had no more fever. Her respiratory status continued to improve and she has been on room air for the last 2 days before discharge. Patient discharged to long term facility in a stable medical condition, discharged on Lasix, Aldactone, lisinopril and metoprolol plan to follow-up with PCP in 1 week and with cardiology. #2 acute hypoxic and hypercapnic respiratory failure: Attributed to above. Initially, patient was in the ICU on mechanical ventilation and she was extubated subsequently. With diuresis, her respiratory status improved and she maintained her pulse ox on room air for the last 3 days before discharge. Patient discharged to long term facility without oxygen. #3 acute C. difficile colitis: Treated with oral vancomycin yesterday. She was discharged to long term facility on oral vancomycin to complete 14 days of treatment. #4 hypokalemia: Secondary to IV Lasix and diarrhea. Potassium replaced and corrected. 5 and she was discharged on potassium supplement along with Lasix and Aldactone. #4 valvular heart disease: She has mitral valve replacement with [place] valve, tricuspid valve repair. 2D echocardiogram revealed no evidence of aortic stenosis, stable appearing mechanical mitral valve apparatus. #5 CAD status post CABG: Continued on lisinopril, metoprolol and Coumadin. #6 chronic A. fib: Rate is controlled, continued on metoprolol for rate control and Coumadin for anticoagulation. Patient discharged to long term facility in a stable medical condition, discharged on diuretics, beta blockers and ALEX[place]RIA inhibitors, discharged on vancomycin p.o. for acute C. difficile colitis, plan to follow-up with PCP in 1 week and follow-up with cardiology according to Dr. Erazo. This note was generated with Coupang dictation software. It may contain incorrect words, spelling, and punctuation that were not noted in checking the note before signing. Home Medications: Medications to take at Discharge Nitroglycerin [Nitrostat] 0.4 mg SUBLINGUAL Q5M PRN #25 tablet 03/28/16 Warfarin [Coumadin] 3 mg PO DAILY 07/15/17 Furosemide [Lasix] 40 mg PO BID@0600,1400 07/22/17 Lisinopril [Zestril] 2.5 mg PO DAILY 07/22/17 Metoprolol Tartrate [Lopressor (beta lili)] 12.5 mg PO BID 07/22/17 Potassium Chloride [K-Dur] 20 meq PO DAILY 07/22/17 Spironolactone [Aldactone] 25 mg PO DAILY 07/22/17 Vancomcyin 125 MG/ 5 ML Susp [Vancomycin 125mg/5mL Susp] 125 mg PO Q6 07/22/17 Primary Care Physician: Warren Mendoza MD [Primary Care Provider] - Please follow up with your Primary Care Physician in: 1 week. Please Follow Up With: Masha Erazo MD When: please call his office. Disposition: [facility] facility Minutes spent on discharge:: 35 Patient Condition:: Stable Medical Necessity - Tobacco Use Smoking Status: Never smoker Tobacco Use: Non-smoker Meaningful Use Info Meaningful Use Diagnoses (Choose all that apply): CHF - CHF ALEXANDRIA/ARB ordered at discharge?: Yes Documented LVEF (%): 15 Code Visit Inpatient E&M: 87917 Disch Hosp
== END 2017-07-22 15:50 | DRG 208 ==
LOC: ED 07-16 00:43 → ICU 07-16 01:02 → PCU 07-20 11:54
PROVIDERS: Internal Medicine; Internal Medicine Critical Care Medicine; Internal Medicine Infectious Disease; Admitting Provider Family Medicine; Emergency Provider Emergency Medicine; Family Provider Family Medicine; PCP Family Medicine; Visit Provider Hospitalist
DX: J96.01 Acute respiratory failure with hypoxia (principal); E43 Unspecified severe protein-calorie malnutrition; I50.23 Acute on chronic systolic (congestive) heart failure; I13.0 Hypertensive heart and chronic kidney disease with heart failure and stage 1 through stage 4 chronic kidney disease, or unspecified chronic kidney disease; I24.8 Other forms of acute ischemic heart disease; E87.3 Alkalosis; A04.72 Enterocolitis due to Clostridium difficile, not specified as recurrent; E87.0 Hyperosmolality and hypernatremia; I42.9 Cardiomyopathy, unspecified; J96.02 Acute respiratory failure with hypercapnia; E11.22 Type 2 diabetes mellitus with diabetic chronic kidney disease; N18.3 Chronic kidney disease, stage 3 (moderate); T50.1X6A Underdosing of loop [high-ceiling] diuretics, initial encounter; Z91.128 Patient's intentional underdosing of medication regimen for other reason; Y92.9 Unspecified place or not applicable; R79.1 Abnormal coagulation profile; E87.6 Hypokalemia; K75.81 Nonalcoholic steatohepatitis (NASH); K74.60 Unspecified cirrhosis of liver; I48.2 Chronic atrial fibrillation; I25.10 Atherosclerotic heart disease of native coronary artery without angina pectoris; E78.5 Hyperlipidemia, unspecified; K21.9 Gastro-esophageal reflux disease without esophagitis; Z79.01 Long term (current) use of anticoagulants; Z95.2 Presence of prosthetic heart valve; Z86.73 Personal history of transient ischemic attack (TIA), and cerebral infarction without residual deficits; Z86.19 Personal history of other infectious and parasitic diseases; Z95.1 Presence of aortocoronary bypass graft
CPT/HCPCS: 31500; 31720; 36415; 36600; 51702; 71045; 74176; 80048; 80053; 80061; 82803; 82962; 83690; 83735; 83880; 84100; 84132; 84439; 84443; 84484; 85025; 85027; 85610; 85730; 87040; 87070; 87086; 87205; 87493; 87641; 92526; 93005; 93306; 94002; 94003; 94640; 94660; 95831; 97110; 97116; 97162; 97165; 97530; 97535; 97802; 97803; 99251; 99285; J7030; J7040; A4216; G0463; J0330; J0696; J1940

== ENCOUNTER 2017-07-22 16:02 | Inpatient (IN) | payer MEDICARE, SELFPAY ==
[2017-07-22 16:19] VITALS: BP 134/59; PULSE 88; RESP 18; TEMP 36.2; O2SAT 93
[2017-07-22 16:56] VITALS: BMI 26.4
[2017-07-22 17:01] VITALS: BMI 26.4
--- NOTE | 2017-07-22 17:11 | NURSING ---
PT ARRIVED VIA BED FROM PCU IN SPECIAL CONTACT ISOLATION
[2017-07-22 17:37] VITALS: BP 134/59; PULSE 88
[2017-07-22] MEDS: Furosemide 40 MG Tablet PO (17:37)
[2017-07-22] MEDS: Metoprolol Tartrate 25 MG Tablet 12.5 MG PO (17:37)
--- NOTE | 2017-07-22 19:34 | PCM.HP.STD ---
Problem List (1) Shortness of breath Status: Acute (2) Abdominal pain Status: Acute (3) Acute respiratory failure Status: Acute (4) Acute on chronic systolic heart failure Status: Acute (5) Depression Status: Chronic (6) Anxiety Status: Chronic (7) Cirrhosis Status: Chronic Qualifiers: (8) Hypertension Status: Chronic Qualifiers: (9) GERD (gastroesophageal reflux disease) Status: Chronic Qualifiers: (10) Atrial fibrillation Status: Chronic Qualifiers: (11) CAD (coronary artery disease) Status: Chronic Qualifiers: (12) Diabetes mellitus Status: Chronic Qualifiers: (13) Hyperlipidemia Status: Chronic Qualifiers: History of Present Illness Date of Admission: 07/22/17 Chief Complaint: Here for rehabiliation, strengthening, prior to discharge home with spouse. The patient is a 77 year old Female with below past medical history presented to [facility] Emergency Department 07/15/2017 with abdominal pain, bloating, shortness of breath. 07/15/2017 CT abdomen/pelvis showed severe cardiomegaly, moderate bilateral pleural effusions, anasarca, ascites, diastasis recti. Symptoms x 2 days. History of congestive heart failure on Lasix 40MG BID. Patient off Lasix because of poor renal function. Cyanotic, increased work of breathing. Intubated in ED. CBC okay, CMP okay, INR 1.6, BNP 445, Troponin okay. EKG junctional rhythm, rate 125. Chest X-ray showed cardiomegaly, large bilateral pleural effusion. 07/16/2017 Admit to ICU. Lasix drip for heart failure. 07/16/2017 Dr. Montague recommends diuretics, antibiotics, panculture, start tubefeeding, heparin drip, Pepcid GI prophylaxis. 07/16/2017 Dr. Brasher recommends no heart cath, add fluid restriction. 07/16/2017 Echo Severely dilated left ventricle. EF 10 to 15 % Severe global hypokinetic left ventricle Left atrium severely enlarged. Moderate pulmonary hypertension Moderate loculated left pleural effusion. IV Lasix changed to oral Lasix. Weaned off oxygen. C. Diff colitis treated with oral Vancomycin. Hypokalemia corrected. Dysphagia evaluated by speech therapy, on Pureed diet. 07/22/2017 Admit to TCU for rehabilitation, strengthening, prior to discharge home with spouse. Past Medical History Past Medical History (Chronic Problems): Chronic Problems Depression (Chronic) Anxiety (Chronic) Congestive heart failure (Chronic) H/O mitral valve replacement with mechanical valve (Chronic) on coumadin Cirrhosis (Chronic) Hypertension (Chronic) GERD (gastroesophageal reflux disease) (Chronic) Atrial fibrillation (Chronic) CAD (coronary artery disease) (Chronic) Diabetes mellitus (Chronic) Cardiomyopathy (Chronic) H/O tricuspid valve repair (Chronic) Hyperlipidemia (Chronic) Anxiety and depression (Chronic) Allergies cortisone Allergy (Verified 07/15/17 22:23) Unknown Home Medications: Ambulatory Orders Medication Instructions Recorded Nitroglycerin [Nitrostat] 0.4 mg SUBLINGUAL Q5M PRN #25 03/28/16 tablet Warfarin [Coumadin] 3 mg PO DAILY 07/15/17 Furosemide [Lasix] 40 mg PO BID@0600,1400 07/22/17 Lisinopril [Zestril] 2.5 mg PO DAILY 07/22/17 Metoprolol Tartrate [Lopressor 12.5 mg PO BID 07/22/17 (beta lili)] Potassium Chloride [K-Dur] 20 meq PO DAILY 07/22/17 Spironolactone [Aldactone] 25 mg PO DAILY 07/22/17 Vancomcyin 125 MG/ 5 ML Susp 125 mg PO Q6 07/22/17 [Vancomycin 125mg/5mL Susp] Surgical History: appendectomy, coronary bypass surgery, - - MV Mechanical Valve [place], TV Repair. 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 Lives: Spouse/ Significant Other Smoking Status: Never smoker Tobacco Use: Non-smoker Alcohol: None Drugs: None - *Family History Maternal History Items: No pertinent history Paternal History Items: Heart Disease, Hypertension Review of Systems Constitutional: Denies: Chills, Fever, Weight Change HEENT: Denies: Head Aches, Sinus Congestion, Sinus Drainage Cardiovascular: Denies: Chest Pain, Palpitations Respiratory: Denies: Cough, Shortness of breath at rest, Sputum production Gastrointestinal: Denies: Abdominal Pain, Nausea, Vomiting Genitourinary: Denies: Dysuria Musculoskeletal: Denies: Joint Pain, Joint Tenderness Skin: Denies: Rash, Wounds Neurological: Denies: Numbness, Tingling, Focal weakness Psychiatric: Denies: Anxiety, Depression, Homicidal Ideations, Suicidal Ideations Hematologic/ Lymphatic: Denies: Easy Bruising, Easy Bleeding VTE Information - Inpt Only VTE Present on Admission: No VTE Mechan Device Prophylaxis: Knee High JOSE MARTIN Hose VTE Pharm Prophylaxis ordered?: No Reason prophylaxis not ordered:: Treatment Not Indicated Patient Problems: Active and Suspected Problems Shortness of breath (Acute) Abdominal pain (Acute) Acute respiratory failure (Acute) Acute on chronic systolic heart failure (Acute) - Physical Exam General: Alert, Oriented x3, Cooperative HEENT: Atraumatic, PERRLA, EOMI, Normocephalic Neck: Supple, No JVD, Negative Carotid Bruits Lungs: Clear to auscultation, Normal air movement Cardiovascular: Regular rate, No murmurs Abdomen: Bowel Sounds Present, Soft, Non Tender Extremities: No edema, Capillary Refill Less than 3 Seconds Skin: No rashes, No breakdown Musculoskeletal: No Tenderness to Palpation of Joints or Extremities Neurological: Cranial nerves II-XII grossly intact Psych/Mental Status: Normal Affect, Appropriate Vital Signs Temp Pulse Resp BP Pulse Ox 97.1 F L 88 18 134/59 H 93 07/22/17 16:19 07/22/17 17:37 07/22/17 16:19 07/22/17 17:37 07/22/17 16:19 Oxygen Delivery Method Room Air Weight: 61.4 kg Body Mass Index (BMI) 26.4 Intake and Output for Last 24 Hours 07/20/17 07/21/17 07/22/17 23:59 23:59 23:59 Intake Total 120 / 120 Output Total 120 / 120 Balance 0 / 0 Assessment/Plan Active and Suspected Problems Shortness of breath (Acute) Abdominal pain (Acute) Acute respiratory failure (Acute) Acute on chronic systolic heart failure (Acute) 77 year old female with below past medical history hospitalized for acute respiratory failure requiring intubation secondary to acute on chronic systolic heart failure, complicated by C. diff colitis, dysphagia requiring specialized diet, admitted to TCU with debility, here for rehabilitation, strengthening, prior to discharge home with spouse. Debility - PT/OT. Dysphagia - ST. Pain - Tylenol 500MG Q6H PRN mild pain. Bowel - Hold due to C. Diff. Pneumonia vaccination - Administer Prevnar 13 and/or Pneumovax 23 as necessary. DVT prophylaxis - Not necessary, already on warfarin. Acute on chronic systolic heart failure - Metoprolol 12.5MG BID, Lisinopril 2.5MG daily, Aldactone 25MG daily, Lasix 40MG BID, consider Entresto. Coronary Artery Disease - Metoprolol 12.5MG BID, Lisinopril 2.5MG daily, Aldactone 25MG daily, NTG 0.4MG Q5M PRN. Hypokalemia - K-Dur 20MEQ daily. C. Diff colitis - Vancomycin 125MG Q6H thru 08/02/2017. Atrial Fibrillation - Metoprolol 12.5MG BID, Warfarin 3MG daily, follow INR. End of Life care - EF 10 t 15%, if resident does not improve, consider hospice referral.
--- NOTE | 2017-07-22 19:38 | HP.PCM_ITS ---
Problem List (1) Shortness of breath Status: Acute (2) Abdominal pain Status: Acute (3) Acute respiratory failure Status: Acute (4) Acute on chronic systolic heart failure Status: Acute (5) Depression Status: Chronic (6) Anxiety Status: Chronic (7) Cirrhosis Status: Chronic Qualifiers: (8) Hypertension Status: Chronic Qualifiers: (9) GERD (gastroesophageal reflux disease) Status: Chronic Qualifiers: (10) Atrial fibrillation Status: Chronic Qualifiers: (11) CAD (coronary artery disease) Status: Chronic Qualifiers: (12) Diabetes mellitus Status: Chronic Qualifiers: (13) Hyperlipidemia Status: Chronic Qualifiers: History of Present Illness Date of Admission: 07/22/17 Chief Complaint: Here for rehabiliation, strengthening, prior to discharge home with spouse. The patient is a 77 year old Female with below past medical history presented to [facility] Emergency Department 07/15/2017 with abdominal pain, bloating , shortness of breath. 07/15/2017 CT abdomen/pelvis showed severe cardiomegaly, moderate bilateral pleural effusions, anasarca, ascites, diastasis recti. Symptoms x 2 days. History of congestive heart failure on Lasix 40MG BID. Patient off Lasix because of poor renal function. Cyanotic, increased work of breathing. Intubated in ED. CBC okay, CMP okay, INR 1.6, BNP 445, Troponin okay. EKG junctional rhythm, rate 125. Chest X-ray showed cardiomegaly, large bilateral pleural effusion. 07/16/2017 Admit to ICU. Lasix drip for heart failure. 07/16/2017 Dr. Montague recommends diuretics, antibiotics, panculture, start tubefeeding, heparin drip, Pepcid GI prophylaxis. 07/16/2017 Dr. Brasher recommends no heart cath, add fluid restriction. 07/16/2017 Echo Severely dilated left ventricle. EF 10 to 15 % Severe global hypokinetic left ventricle Left atrium severely enlarged. Moderate pulmonary hypertension Moderate loculated left pleural effusion. IV Lasix changed to oral Lasix. Weaned off oxygen. C. Diff colitis treated with oral Vancomycin. Hypokalemia corrected. Dysphagia evaluated by speech therapy, on Pureed diet. 07/22/2017 Admit to TCU for rehabilitation, strengthening, prior to discharge home with spouse. Past Medical History Past Medical History (Chronic Problems): Chronic Problems Depression (Chronic) Anxiety (Chronic) Congestive heart failure (Chronic) H/O mitral valve replacement with mechanical valve (Chronic) on coumadin Cirrhosis (Chronic) Hypertension (Chronic) GERD (gastroesophageal reflux disease) (Chronic) Atrial fibrillation (Chronic) CAD (coronary artery disease) (Chronic) Diabetes mellitus (Chronic) Cardiomyopathy (Chronic) H/O tricuspid valve repair (Chronic) Hyperlipidemia (Chronic) Anxiety and depression (Chronic) Allergies cortisone Allergy (Verified 07/15/17 22:23) Unknown Home Medications: Ambulatory Orders Medication Instructions Recorded Nitroglycerin [Nitrostat] 0.4 mg SUBLINGUAL Q5M PRN #25 03/28/16 tablet Warfarin [Coumadin] 3 mg PO DAILY 07/15/17 Furosemide [Lasix] 40 mg PO BID@0600,1400 07/22/17 Lisinopril [Zestril] 2.5 mg PO DAILY 07/22/17 Metoprolol Tartrate [Lopressor 12.5 mg PO BID 07/22/17 (beta lili)] Potassium Chloride [K-Dur] 20 meq PO DAILY 07/22/17 Spironolactone [Aldactone] 25 mg PO DAILY 07/22/17 Vancomcyin 125 MG/ 5 ML Susp 125 mg PO Q6 07/22/17 [Vancomycin 125mg/5mL Susp] Surgical History: appendectomy, coronary bypass surgery, - - MV Mechanical Valve [facility] [place], TV Repair. 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 Lives: Spouse/ Significant Other Smoking Status: Never smoker Tobacco Use: Non-smoker Alcohol: None Drugs: None - *Family History Maternal History Items: No pertinent history Paternal History Items: Heart Disease, Hypertension Review of Systems Constitutional: Denies: Chills, Fever, Weight Change HEENT: Denies: Head Aches, Sinus Congestion, Sinus Drainage Cardiovascular: Denies: Chest Pain, Palpitations Respiratory: Denies: Cough, Shortness of breath at rest, Sputum production Gastrointestinal: Denies: Abdominal Pain, Nausea, Vomiting Genitourinary: Denies: Dysuria Musculoskeletal: Denies: Joint Pain, Joint Tenderness Skin: Denies: Rash, Wounds Neurological: Denies: Numbness, Tingling, Focal weakness Psychiatric: Denies: Anxiety, Depression, Homicidal Ideations, Suicidal Ideations Hematologic/ Lymphatic: Denies: Easy Bruising, Easy Bleeding VTE Information - Inpt Only VTE Present on Admission: No VTE Mechan Device Prophylaxis: Knee High JOSE MARTIN Hose VTE Pharm Prophylaxis ordered?: No Reason prophylaxis not ordered:: Treatment Not Indicated Patient Problems: Active and Suspected Problems Shortness of breath (Acute) Abdominal pain (Acute) Acute respiratory failure (Acute) Acute on chronic systolic heart failure (Acute) - Physical Exam General: Alert, Oriented x3, Cooperative HEENT: Atraumatic, PERRLA, EOMI, Normocephalic Neck: Supple, No JVD, Negative Carotid Bruits Lungs: Clear to auscultation, Normal air movement Cardiovascular: Regular rate, No murmurs Abdomen: Bowel Sounds Present, Soft, Non Tender Extremities: No edema, Capillary Refill Less than 3 Seconds Skin: No rashes, No breakdown Musculoskeletal: No Tenderness to Palpation of Joints or Extremities Neurological: Cranial nerves II-XII grossly intact Psych/Mental Status: Normal Affect, Appropriate Vital Signs Temp Pulse Resp BP Pulse Ox 97.1 F L 88 18 134/59 H 93 07/22/17 16:19 07/22/17 17:37 07/22/17 16:19 07/22/17 17:37 07/22/17 16:19 Oxygen Delivery Method Room Air Weight: 61.4 kg Body Mass Index (BMI) 26.4 Intake and Output for Last 24 Hours 07/20/17 07/21/17 07/22/17 23:59 23:59 23:59 Intake Total 120 / 120 Output Total 120 / 120 Balance 0 / 0 Assessment/Plan Active and Suspected Problems Shortness of breath (Acute) Abdominal pain (Acute) Acute respiratory failure (Acute) Acute on chronic systolic heart failure (Acute) 77 year old female with below past medical history hospitalized for acute respiratory failure requiring intubation secondary to acute on chronic systolic heart failure, complicated by C. diff colitis, dysphagia requiring specialized diet, admitted to TCU with debility, here for rehabilitation, strengthening, prior to discharge home with spouse. * Debility - PT/OT. * Dysphagia - ST. * Pain - Tylenol 500MG Q6H PRN mild pain. * Bowel - Hold due to C. Diff. * Pneumonia vaccination - Administer Prevnar 13 and/or Pneumovax 23 as necessary. * DVT prophylaxis - Not necessary, already on warfarin. * Acute on chronic systolic heart failure - Metoprolol 12.5MG BID, Lisinopril 2.5MG daily, Aldactone 25MG daily, Lasix 40MG BID, consider Entresto. * Coronary Artery Disease - Metoprolol 12.5MG BID, Lisinopril 2.5MG daily, Aldactone 25MG daily, NTG 0.4MG Q5M PRN. * Hypokalemia - K-Dur 20MEQ daily. * C. Diff colitis - Vancomycin 125MG Q6H thru 08/02/2017. * Atrial Fibrillation - Metoprolol 12.5MG BID, Warfarin 3MG daily, follow INR. * End of Life care - EF 10 t 15%, if resident does not improve, consider hospice referral.
[2017-07-22] MEDS: Acetaminophen 500 MG Tablet PO (22:09)
[2017-07-23] MEDS: Menthol/Lanolin/Calamine/Znox 113 GM Tube 1 APPLIC TOPICAL (05:58)
[2017-07-23] MEDS: Nystatin Powder 15gm Bottle 1 APPLIC TOPICAL ×2 (05:59→19:35)
[2017-07-23] MEDS: Spironolactone 25 MG Tablet PO (06:02)
[2017-07-23] MEDS: Lisinopril 2.5 MG Tablet PO (06:02)
[2017-07-23] MEDS: Furosemide 40 MG Tablet PO ×2 (06:02→13:34)
[2017-07-23 06:03] VITALS: BP 118/70; PULSE 73
[2017-07-23] MEDS: Acetaminophen 500 MG Tablet PO (06:03)
[2017-07-23] MEDS: Metoprolol Tartrate 25 MG Tablet 12.5 MG PO ×2 (06:03→17:54)
[2017-07-23 06:13] LABS: Absolute Lymphocyte Count 0.65 X10^3/ul (0.83-4.51); Absolute Neutrophil Count 4.5 X10^3/uL (2.0-7.7); Basophil# 0.02 X10^3/uL; Basophil% 0.3 % (0-1); Eosinophil# 0.27 X10^3/uL; Eosinophils% 4.5 % (0-5); Hematocrit 39.1 % (37-47); Hemoglobin 12.2 g/dl (12.0-15.0); Lymphocyte # 0.65 X10^3/ul (4.0); Lymphocyte % 10.8 % (19-41); Mean Corp Hgb Conc 31.2 g/gl (32-36); Mean Corpuscular Volume 99.2 fL (81-99); Mean Platelet Vol. 9.4 fl (6.2-12.0); Monocyte# 0.56 X10^3/uL; Monocyte% 9.3 % (0-10); Neutrophil # 4.48 X10^3/uL (2.7-7.7); Neutrophil % 74.6 % (47-70); Platelet Count 388 K/mm3 (150-450); RBC Distribution Width CV 15.6 % (11.6-14.6); RBC Distribution Width SD 54.8 fl (35.1-43.9); Red Blood Count 3.94 M/mm3 (4.2-5.4)
[2017-07-23 06:27] LABS: POSITIVE COUNT NO; POSITIVE DIFFERENTIAL NO; POSITIVE MORPHOLOGY NO
[2017-07-23 06:45] LABS: Anion Gap 5 (5-15); BUN 21 mg/dL (7-18); BUN/Creat Ratio 47.8 RATIO (10-20); Calcium,Total 7.9 mg/dL (8.5-10.1); Chloride 105 mmol/L (98-107); Creatinine, Serum 0.44 mg/dL (0.55-1.02); EST Glomerular Filtration Rate 147 mL/min (>60); Est Glom Filt Rate - Afr Amer 178 mL/min (>60); Estimated Creatinine Clearance 32.77 ml/min; Glucose 82 mg/dL (74-106); Potassium 3.9 mmol/L (3.5-5.1); Sodium Level 147 mmol/L (136-145)
[2017-07-23 07:00] LABS: Bedside Glucose 92 mg/dL (70-110)
--- NOTE | 2017-07-23 09:10 | PCA ---
Bakery Demonstrator supervised patient in room with breakfast
[2017-07-23] MEDS: Tuberculin,Purif.prot.deriv. 50 TU/ML Vial 5 ML ID (11:00)
--- NOTE | 2017-07-23 13:06 | PCM.PN.RX ---
<Melquiades Sahu D - Last Filed: 07/23/17 13:06> Progress Note - Pharmacy Subjective: TCU Admission Objective: Allergies cortisone Allergy (Verified 07/15/17 22:23) Unknown Home Medications Medication Instructions Recorded Nitroglycerin [Nitrostat] 0.4 mg SUBLINGUAL Q5M PRN #25 03/28/16 tablet Warfarin [Coumadin] 3 mg PO DAILY 07/15/17 Furosemide [Lasix] 40 mg PO BID@0600,1400 07/22/17 Lisinopril [Zestril] 2.5 mg PO DAILY 07/22/17 Metoprolol Tartrate [Lopressor 12.5 mg PO BID 07/22/17 (beta latricia)] Potassium Chloride [K-Dur] 20 meq PO DAILY 07/22/17 Spironolactone [Aldactone] 25 mg PO DAILY 07/22/17 Vancomcyin 125 MG/ 5 ML Susp 125 mg PO Q6 07/22/17 [Vancomycin 125mg/5mL Susp] Current Medications Generic Name Dose Route Start Last Admin Trade Name Jesus Albertoq PRN Reason Stop Dose Admin Acetaminophen 500 mg 07/22/17 20:17 07/23/17 06:03 Tylenol PO 500 mg Q6H PRN PRN Administration MILD PAIN (1-3/10) Calamine/Phenol 1 applic 07/23/17 00:04 07/23/17 05:58 Calmoseptine Ointment TOPICAL 1 applicatio BID PRN Administration Skin irritation Protocol Emollient Ointment 1 applic 07/23/17 06:00 07/23/17 05:59 Eucerin Intensive Repair TOPICAL 1 applicatio 0600,2200 PAT Administration Protocol Furosemide 40 mg 07/23/17 06:00 07/23/17 06:02 Lasix PO 40 mg BID@0600,1400 PAT Administration Lisinopril 2.5 mg 07/23/17 06:00 07/23/17 06:02 Zestril PO 2.5 mg DAILY PAT Administration Metoprolol Tartrate 12.5 mg 07/22/17 18:00 07/23/17 06:03 Lopressor (Beta Latricia) PO 12.5 mg BID PAT Administration Nitroglycerin 0.4 mg 07/22/17 16:14 Nitrostat SUBLINGUAL Q5M PRN Chest Pain Nystatin 1 applic 07/23/17 06:00 07/23/17 05:59 Mycostatin Powder TOPICAL 1 applicatio 0600,2200 PAT Administration Protocol Potassium Chloride 20 meq 07/23/17 06:00 07/23/17 06:02 K-Dur PO 20 meq DAILY PAT Administration Spironolactone 25 mg 07/23/17 06:00 07/23/17 06:02 Aldactone PO 25 mg DAILY PAT Administration Tuberculin PPD 5 tu 07/30/17 10:00 Tubersol, Aplisol, Ppd ID 07/30/17 10:01 X1 ONE Vancomycin HCl 125 mg 07/22/17 18:00 07/23/17 12:14 Vancomycin 125mg/5ml Susp PO 08/02/17 18:01 125 mg Q6 PAT Administration Warfarin Sodium 3 mg 07/22/17 17:00 07/22/17 17:36 Coumadin (Pbkc) PO 3 mg 1700 PAT Administration Problem List Shortness of breath (Acute) Abdominal pain (Acute) Acute respiratory failure (Acute) Acute on chronic systolic heart failure (Acute) Depression (Chronic) Anxiety (Chronic) Vital Signs Temp Pulse Resp BP Pulse Ox 97.1 F L 73 18 118/70 93 07/22/17 16:19 07/23/17 06:03 07/22/17 16:19 07/23/17 06:03 07/22/17 16:19 Oxygen Delivery Method Room Air Weight: 61.4 kg Body Mass Index (BMI) 26.4 Sodium 147 mmol/L (136-145) H 07/23/17 05:15 Potassium 3.9 mmol/L (3.5-5.1) 07/23/17 05:15 Chloride 105 mmol/L (98-107) 07/23/17 05:15 Carbon Dioxide 37.0 mmol/L (21.0-32.0) H 07/23/17 05:15 Anion Gap 5 (5-15) 07/23/17 05:15 BUN 21 mg/dL (7-18) H 07/23/17 05:15 Creatinine 0.44 mg/dL (0.55-1.02) L 07/23/17 05:15 Est GFR (MDRD) Af Amer 178 mL/min (>60) 07/23/17 05:15 Est GFR (MDRD) Non-Af 147 mL/min (>60) 07/23/17 05:15 BUN/Creatinine Ratio 47.8 RATIO (10-20) H 07/23/17 05:15 Glucose 82 mg/dL (74-106) 07/23/17 05:15 Assessment/Plan: 1) Pain APAP for mild pain. Continue to monitor prn medication use, daily pain scores. 2) CHF/AFib/CAD Warfarin for goal INR 2-3, spironolactone, furosemide/KCl, metoprolol, lisinopril, prn ntg. Last INR in goal range yesterday, BP/HR within goal ranges, BUN/SCr at baseline, K wnl. Continue to monitor BP/HR, renal function, electrolytes, INR, s/s bleeding, chest pain, prn medication use. 3) ID Vancomycin orally for C Diff colitis until 08/02. Continue to monitor for diarrhea. 4) Derm Calmoseptine, nystatin powder, emollient topically. Continue to monitor clinically. Psychotropic Medications: None Unnecessary Medications: None Bowel Regimen: None. Being treated for C Diff colitis. Date of Note:: 07/23/17 - Provider Comments Provider responsibility: Provider responsible to enter orders to implement recommendations <Holden Bell Chi - Last Filed: 07/23/17 14:13> Progress Note - Pharmacy Subjective: [] Objective: Allergies cortisone Allergy (Verified 07/15/17 22:23) Unknown Home Medications Medication Instructions Recorded Nitroglycerin [Nitrostat] 0.4 mg SUBLINGUAL Q5M PRN #25 03/28/16 tablet Warfarin [Coumadin] 3 mg PO DAILY 07/15/17 Furosemide [Lasix] 40 mg PO BID@0600,1400 07/22/17 Lisinopril [Zestril] 2.5 mg PO DAILY 07/22/17 Metoprolol Tartrate [Lopressor 12.5 mg PO BID 07/22/17 (beta latricia)] Potassium Chloride [K-Dur] 20 meq PO DAILY 07/22/17 Spironolactone [Aldactone] 25 mg PO DAILY 07/22/17 Vancomcyin 125 MG/ 5 ML Susp 125 mg PO Q6 07/22/17 [Vancomycin 125mg/5mL Susp] Current Medications Generic Name Dose Route Start Last Admin Trade Name Freq PRN Reason Stop Dose Admin Acetaminophen 500 mg 07/22/17 20:17 07/23/17 06:03 Tylenol PO 500 mg Q6H PRN PRN Administration MILD PAIN (1-3/10) Calamine/Phenol 1 applic 07/23/17 00:04 07/23/17 05:58 Calmoseptine Ointment TOPICAL 1 applicatio BID PRN Administration Skin irritation Protocol Emollient Ointment 1 applic 07/23/17 06:00 07/23/17 05:59 Eucerin Intensive Repair TOPICAL 1 applicatio 06,2199 [facility] Administration Protocol Furosemide 40 mg 07/23/17 06:00 07/23/17 13:34 Lasix PO 40 mg BID@0600,1400 PAT Administration Lisinopril 2.5 mg 07/23/17 06:00 07/23/17 06:02 Zestril PO 2.5 mg DAILY PAT Administration Metoprolol Tartrate 12.5 mg 07/22/17 18:00 07/23/17 06:03 Lopressor (Beta Latricia) PO 12.5 mg BID PAT Administration Nitroglycerin 0.4 mg 07/22/17 16:14 Nitrostat SUBLINGUAL Q5M PRN Chest Pain Nystatin 1 applic 07/23/17 06:00 07/23/17 05:59 Mycostatin Powder TOPICAL 1 applicatio 599,2199 [facility] Administration Protocol Potassium Chloride 20 meq 07/23/17 06:00 07/23/17 06:02 K-Dur PO 20 meq DAILY PAT Administration Spironolactone 25 mg 07/23/17 06:00 07/23/17 06:02 Aldactone PO 25 mg DAILY PAT Administration Tuberculin PPD 5 tu 07/30/17 10:00 Tubersol, Aplisol, Ppd ID 07/30/17 10:01 X1 ONE Vancomycin HCl 125 mg 07/22/17 18:00 07/23/17 12:14 Vancomycin 125mg/5ml Susp PO 08/02/17 18:01 125 mg Q6 PAT Administration Warfarin Sodium 3 mg 07/22/17 17:00 07/22/17 17:36 Coumadin (Pbkc) PO 3 mg 1700 PAT Administration Problem List Shortness of breath (Acute) Abdominal pain (Acute) Acute respiratory failure (Acute) Acute on chronic systolic heart failure (Acute) Depression (Chronic) Anxiety (Chronic) Vital Signs Temp Pulse Resp BP Pulse Ox 97.1 F L 73 18 118/70 93 07/22/17 16:19 07/23/17 06:03 07/22/17 16:19 07/23/17 06:03 07/22/17 16:19 Oxygen Delivery Method Room Air Weight: 61.4 kg Body Mass Index (BMI) 26.4 Sodium 147 mmol/L (136-145) H 07/23/17 05:15 Potassium 3.9 mmol/L (3.5-5.1) 07/23/17 05:15 Chloride 105 mmol/L (98-107) 07/23/17 05:15 Carbon Dioxide 37.0 mmol/L (21.0-32.0) H 07/23/17 05:15 Anion Gap 5 (5-15) 07/23/17 05:15 BUN 21 mg/dL (7-18) H 07/23/17 05:15 Creatinine 0.44 mg/dL (0.55-1.02) L 07/23/17 05:15 Est GFR (MDRD) Af Amer 178 mL/min (>60) 07/23/17 05:15 Est GFR (MDRD) Non-Af 147 mL/min (>60) 07/23/17 05:15 BUN/Creatinine Ratio 47.8 RATIO (10-20) H 07/23/17 05:15 Glucose 82 mg/dL (74-106) 07/23/17 05:15 Assessment/Plan: Psychotropic Medications: Unnecessary Medications: Bowel Regimen: - Provider Comments Provider responsibility: Provider responsible to enter orders to implement recommendations Provider Comments to Recommendations by Pharmacy: Agree
--- NOTE | 2017-07-23 13:11 | PHA.CONS_ITS ---
<Melquiades Sahu D - Last Filed: 07/23/17 13:06> Progress Note - Pharmacy Subjective: TCU Admission Objective: Allergies cortisone Allergy (Verified 07/15/17 22:23) Unknown Home Medications Medication Instructions Recorded Nitroglycerin [Nitrostat] 0.4 mg SUBLINGUAL Q5M PRN #25 03/28/16 tablet Warfarin [Coumadin] 3 mg PO DAILY 07/15/17 Furosemide [Lasix] 40 mg PO BID@0600,1400 07/22/17 Lisinopril [Zestril] 2.5 mg PO DAILY 07/22/17 Metoprolol Tartrate [Lopressor 12.5 mg PO BID 07/22/17 (beta latricia)] Potassium Chloride [K-Dur] 20 meq PO DAILY 07/22/17 Spironolactone [Aldactone] 25 mg PO DAILY 07/22/17 Vancomcyin 125 MG/ 5 ML Susp 125 mg PO Q6 07/22/17 [Vancomycin 125mg/5mL Susp] Current Medications Generic Name Dose Route Start Last Admin Trade Name Jesus Albertoq PRN Reason Stop Dose Admin Acetaminophen 500 mg 07/22/17 20:17 07/23/17 06:03 Tylenol PO 500 mg Q6H PRN PRN Administration MILD PAIN (1-3/10) Calamine/Phenol 1 applic 07/23/17 00:04 07/23/17 05:58 Calmoseptine Ointment TOPICAL 1 applicatio BID PRN Administration Skin irritation Protocol Emollient Ointment 1 applic 07/23/17 06:00 07/23/17 05:59 Eucerin Intensive Repair TOPICAL 1 applicatio 0600,2200 PAT Administration Protocol Furosemide 40 mg 07/23/17 06:00 07/23/17 06:02 Lasix PO 40 mg BID@0600,1400 PAT Administration Lisinopril 2.5 mg 07/23/17 06:00 07/23/17 06:02 Zestril PO 2.5 mg DAILY PAT Administration Metoprolol Tartrate 12.5 mg 07/22/17 18:00 07/23/17 06:03 Lopressor (Beta Latricia) PO 12.5 mg BID PAT Administration Nitroglycerin 0.4 mg 07/22/17 16:14 Nitrostat SUBLINGUAL Q5M PRN Chest Pain Nystatin 1 applic 07/23/17 06:00 07/23/17 05:59 Mycostatin Powder TOPICAL 1 applicatio 0600,2200 PAT Administration Protocol Potassium Chloride 20 meq 07/23/17 06:00 07/23/17 06:02 K-Dur PO 20 meq DAILY PAT Administration Spironolactone 25 mg 07/23/17 06:00 07/23/17 06:02 Aldactone PO 25 mg DAILY PAT Administration Tuberculin PPD 5 tu 07/30/17 10:00 Tubersol, Aplisol, Ppd ID 07/30/17 10:01 X1 ONE Vancomycin HCl 125 mg 07/22/17 18:00 07/23/17 12:14 Vancomycin 125mg/5ml Susp PO 08/02/17 18:01 125 mg Q6 APT Administration Warfarin Sodium 3 mg 07/22/17 17:00 07/22/17 17:36 Coumadin (Pbkc) PO 3 mg 1700 PAT Administration Problem List Shortness of breath (Acute) Abdominal pain (Acute) Acute respiratory failure (Acute) Acute on chronic systolic heart failure (Acute) Depression (Chronic) Anxiety (Chronic) Vital Signs Temp Pulse Resp BP Pulse Ox 97.1 F L 73 18 118/70 93 07/22/17 16:19 07/23/17 06:03 07/22/17 16:19 07/23/17 06:03 07/22/17 16:19 Oxygen Delivery Method Room Air Weight: 61.4 kg Body Mass Index (BMI) 26.4 Sodium 147 mmol/L (136-145) H 07/23/17 05:15 Potassium 3.9 mmol/L (3.5-5.1) 07/23/17 05:15 Chloride 105 mmol/L (98-107) 07/23/17 05:15 Carbon Dioxide 37.0 mmol/L (21.0-32.0) H 07/23/17 05:15 Anion Gap 5 (5-15) 07/23/17 05:15 BUN 21 mg/dL (7-18) H 07/23/17 05:15 Creatinine 0.44 mg/dL (0.55-1.02) L 07/23/17 05:15 Est GFR (MDRD) Af Amer 178 mL/min (>60) 07/23/17 05:15 Est GFR (MDRD) Non-Af 147 mL/min (>60) 07/23/17 05:15 BUN/Creatinine Ratio 47.8 RATIO (10-20) H 07/23/17 05:15 Glucose 82 mg/dL (74-106) 07/23/17 05:15 Assessment/Plan: 1) Pain APAP for mild pain. Continue to monitor prn medication use, daily pain scores. 2) CHF/AFib/CAD Warfarin for goal INR 2-3, spironolactone, furosemide/KCl, metoprolol, lisinopril, prn ntg. Last INR in goal range yesterday, BP/HR within goal ranges , BUN/SCr at baseline, K wnl. Continue to monitor BP/HR, renal function, electrolytes, INR, s/s bleeding, chest pain, prn medication use. 3) ID Vancomycin orally for C Diff colitis until 08/02. Continue to monitor for diarrhea. 4) Derm Calmoseptine, nystatin powder, emollient topically. Continue to monitor clinically. Psychotropic Medications: None Unnecessary Medications: None Bowel Regimen: None. Being treated for C Diff colitis. Date of Note:: 07/23/17 - Provider Comments Provider responsibility: Provider responsible to enter orders to implement recommendations <Holden Bell Chi - Last Filed: 07/23/17 14:13> Progress Note - Pharmacy Subjective: [] Objective: Allergies cortisone Allergy (Verified 07/15/17 22:23) Unknown Home Medications Medication Instructions Recorded Nitroglycerin [Nitrostat] 0.4 mg SUBLINGUAL Q5M PRN #25 03/28/16 tablet Warfarin [Coumadin] 3 mg PO DAILY 07/15/17 Furosemide [Lasix] 40 mg PO BID@0600,1400 07/22/17 Lisinopril [Zestril] 2.5 mg PO DAILY 07/22/17 Metoprolol Tartrate [Lopressor 12.5 mg PO BID 07/22/17 (beta latricia)] Potassium Chloride [K-Dur] 20 meq PO DAILY 07/22/17 Spironolactone [Aldactone] 25 mg PO DAILY 07/22/17 Vancomcyin 125 MG/ 5 ML Susp 125 mg PO Q6 07/22/17 [Vancomycin 125mg/5mL Susp] Current Medications Generic Name Dose Route Start Last Admin Trade Name Freq PRN Reason Stop Dose Admin Acetaminophen 500 mg 07/22/17 20:17 07/23/17 06:03 Tylenol PO 500 mg Q6H PRN PRN Administration MILD PAIN (1-3/10) Calamine/Phenol 1 applic 07/23/17 00:04 07/23/17 05:58 Calmoseptine Ointment TOPICAL 1 applicatio BID PRN Administration Skin irritation Protocol Emollient Ointment 1 applic 07/23/17 06:00 07/23/17 05:59 Eucerin Intensive Repair TOPICAL 1 applicatio 06,2199 [facility] Administration Protocol Furosemide 40 mg 07/23/17 06:00 07/23/17 13:34 Lasix PO 40 mg BID@0600,1400 PAT Administration Lisinopril 2.5 mg 07/23/17 06:00 07/23/17 06:02 Zestril PO 2.5 mg DAILY PAT Administration Metoprolol Tartrate 12.5 mg 07/22/17 18:00 07/23/17 06:03 Lopressor (Beta Latricia) PO 12.5 mg BID PAT Administration Nitroglycerin 0.4 mg 07/22/17 16:14 Nitrostat SUBLINGUAL Q5M PRN Chest Pain Nystatin 1 applic 07/23/17 06:00 07/23/17 05:59 Mycostatin Powder TOPICAL 1 applicatio 599,2199 [facility] Administration Protocol Potassium Chloride 20 meq 07/23/17 06:00 07/23/17 06:02 K-Dur PO 20 meq DAILY PAT Administration Spironolactone 25 mg 07/23/17 06:00 07/23/17 06:02 Aldactone PO 25 mg DAILY PAT Administration Tuberculin PPD 5 tu 07/30/17 10:00 Tubersol, Aplisol, Ppd ID 07/30/17 10:01 X1 ONE Vancomycin HCl 125 mg 07/22/17 18:00 07/23/17 12:14 Vancomycin 125mg/5ml Susp PO 08/02/17 18:01 125 mg Q6 PAT Administration Warfarin Sodium 3 mg 07/22/17 17:00 07/22/17 17:36 Coumadin (Pbkc) PO 3 mg 1700 PAT Administration Problem List Shortness of breath (Acute) Abdominal pain (Acute) Acute respiratory failure (Acute) Acute on chronic systolic heart failure (Acute) Depression (Chronic) Anxiety (Chronic) Vital Signs Temp Pulse Resp BP Pulse Ox 97.1 F L 73 18 118/70 93 07/22/17 16:19 07/23/17 06:03 07/22/17 16:19 07/23/17 06:03 07/22/17 16:19 Oxygen Delivery Method Room Air Weight: 61.4 kg Body Mass Index (BMI) 26.4 Sodium 147 mmol/L (136-145) H 07/23/17 05:15 Potassium 3.9 mmol/L (3.5-5.1) 07/23/17 05:15 Chloride 105 mmol/L (98-107) 07/23/17 05:15 Carbon Dioxide 37.0 mmol/L (21.0-32.0) H 07/23/17 05:15 Anion Gap 5 (5-15) 07/23/17 05:15 BUN 21 mg/dL (7-18) H 07/23/17 05:15 Creatinine 0.44 mg/dL (0.55-1.02) L 07/23/17 05:15 Est GFR (MDRD) Af Amer 178 mL/min (>60) 07/23/17 05:15 Est GFR (MDRD) Non-Af 147 mL/min (>60) 07/23/17 05:15 BUN/Creatinine Ratio 47.8 RATIO (10-20) H 07/23/17 05:15 Glucose 82 mg/dL (74-106) 07/23/17 05:15 Assessment/Plan: Psychotropic Medications: Unnecessary Medications: Bowel Regimen: - Provider Comments Provider responsibility: Provider responsible to enter orders to implement recommendations Provider Comments to Recommendations by Pharmacy: Agree
[2017-07-23 15:41] VITALS: BP 124/60; PULSE 78; RESP 20; TEMP 37.1; O2SAT 96
[2017-07-23 17:54] VITALS: PULSE 75
--- NOTE | 2017-07-23 20:22 | NURSING ---
Pt son and DIL approached this nurse about pt having some kidney pills in room that were some kind of herbal medication but they were unsure if pt actually had any. They stated pt had told them her kidneys were working good and that the father had brought something in for her. This nurse asked pt and pt denied having anything. This nurse explained to pt to let us know if she is taking any other medications or if she had any questions about current meds. Pt denied. Pt resting in recliner with call light in reach.
[2017-07-24] MEDS: Furosemide 40 MG Tablet PO ×2 (04:47→13:17)
[2017-07-24] MEDS: Spironolactone 25 MG Tablet PO (04:47)
[2017-07-24] MEDS: Lisinopril 2.5 MG Tablet PO (04:47)
[2017-07-24 04:48] VITALS: BP 137/62; PULSE 75
[2017-07-24] MEDS: Metoprolol Tartrate 25 MG Tablet 12.5 MG PO ×2 (04:48→17:16)
[2017-07-24] MEDS: Nystatin Powder 15gm Bottle 1 APPLIC TOPICAL ×2 (04:48→20:58)
[2017-07-24] MEDS: Menthol/Lanolin/Calamine/Znox 113 GM Tube 1 APPLIC TOPICAL ×2 (04:52→20:57)
[2017-07-24 06:01] LABS: International Normalized Ratio 2.1; Prothrombin Time (Protime)PT. 23.6 SECONDS (11.7-14.9)
[2017-07-24 06:51] LABS: Bedside Glucose 102 mg/dL (70-110)
[2017-07-24 15:17] VITALS: BP 119/62; PULSE 73; RESP 18; TEMP 37.7; O2SAT 94
--- NOTE | 2017-07-24 16:15 | CASEMGMT ---
Social Work Spoke with resident in room. Resident requesting for discharge date to be set for 07/30/17. Spoke with staff/therapy, 07/30/17 is an agreeable date at this time. Resident plans to discharge home with spouse at time of discharge. Support given. Proposed discharge date: 07/30/17 PLAN: Discharge home with spouse. Will continue to follow. Lora SMITH, EARTH SCIENCE TECHNICIAN
[2017-07-24 17:16] VITALS: BP 119/62; PULSE 73
--- NOTE | 2017-07-24 18:30 | PCM.DC ---
- Discharge Diagnoses Current Active Problems: Current Active and Chronic Problems Shortness of breath (Acute) Abdominal pain (Acute) Acute respiratory failure (Acute) Acute on chronic systolic heart failure (Acute) Depression (Chronic) Anxiety (Chronic) You will use the following diet at home:: No restrictions, Regular Your food should be the consistency of: Regular Your liquids should be the consistency of: Regular/Thin Discharge Activity: Return to Normal Activity, May Shower, Use Walker Weight Bearing Status: Weight bearing as tolerated Call your doctor if you observe: Fever of 101 or Higher, Inability to urinate, Inability to have a bowel movement, Shortness of breath, Chest pain, Uncontrolled pain Allergies/Adverse Reactions: Allergies cortisone Allergy (Verified 07/15/17 22:23) Unknown Medications to take at Discharge Nitroglycerin [Nitrostat] 0.4 mg SUBLINGUAL Q5M PRN #25 tablet 03/28/16 Warfarin [Coumadin] 3 mg PO DAILY 07/15/17 Acetaminophen [Tylenol] 500 mg PO Q6H PRN PRN tablet 07/24/17 Furosemide [Lasix] 40 mg PO BID@0600,1400 #60 tab 07/24/17 Lisinopril [Zestril] 2.5 mg PO DAILY #30 tab 07/24/17 Menthol/Lanolin/Calamine/Znox [Calmoseptine Ointment] 1 applic TOPICAL 0600,2200 tube 07/24/17 Metoprolol Tartrate [Lopressor (beta lili)] 12.5 mg PO BID #60 tab 07/24/17 Nystatin Powder [Mycostatin Powder] 1 applic TOPICAL 0600,2200 bottle 07/24/17 Potassium Chloride [K-Dur] 20 meq PO DAILY #30 tab 07/24/17 Spironolactone [Aldactone] 25 mg PO DAILY #30 tab 07/24/17 Vancomcyin 125 MG/ 5 ML Susp [Vancomycin 125mg/5mL Susp] 125 mg PO Q6 #16 cap 07/24/17 The following prescriptions were given: Furosemide [Lasix] 40 mg PO BID@0600,1400 #60 tab Lisinopril [Zestril] 2.5 mg PO DAILY #30 tab Potassium Chloride [K-Dur] 20 meq PO DAILY #30 tab Spironolactone [Aldactone] 25 mg PO DAILY #30 tab Vancomcyin 125 MG/ 5 ML Susp [Vancomycin 125mg/5mL Susp] 125 mg PO Q6 #16 cap Metoprolol Tartrate [Lopressor (beta lili)] 12.5 mg PO BID #60 tab Orders to be completed after discharge: Prothrombin Time w/INR Time Frame: 1 Day, Location: Laboratory Primary Care Physician: Warren Mendoza MD [Primary Care Provider] - Please follow up with your Primary Care Physician in: 1 week. Please Follow Up With: Dr. Harrison When: 2 weeks. Proposed Discharge Date: 07/30/17
--- NOTE | 2017-07-24 18:32 | PCM.DC.SUM ---
Discharge Date and Diagnosis - Problem List Patient Problems: Active and Suspected Problems Shortness of breath (Acute) Abdominal pain (Acute) Acute respiratory failure (Acute) Acute on chronic systolic heart failure (Acute) Date of Admission: 07/22/17 Date of Discharge: 07/30/17 - Primary Discharge Diagnosis Active and Suspected Problems Shortness of breath (Acute) Abdominal pain (Acute) Acute respiratory failure (Acute) Acute on chronic systolic heart failure (Acute) - Secondary Discharge Diagnosis Chronic Problems Depression (Chronic) Anxiety (Chronic) Congestive heart failure (Chronic) H/O mitral valve replacement with mechanical valve (Chronic) on coumadin Cirrhosis (Chronic) Hypertension (Chronic) GERD (gastroesophageal reflux disease) (Chronic) Atrial fibrillation (Chronic) CAD (coronary artery disease) (Chronic) Diabetes mellitus (Chronic) Cardiomyopathy (Chronic) H/O tricuspid valve repair (Chronic) Hyperlipidemia (Chronic) Anxiety and depression (Chronic) Hospital Course and Treatment Imaging Results: 07/22/17 16:18 Diet: Cardiac/Low Cholesterol Food consistency:: Mechanical Soft/Ground Liquid Consistency:: Regular/Thin Dietary Modifications:: Mechanical Soft Diet Is pt able to select menu?: No Diet Comments: SU[employer]VISED MEALS, [employer] Labs (Last 48 Hours) 07/23/17 07/23/17 07/23/17 05:15 05:15 06:30 WBC 6.0 RBC 3.94 L Hgb 12.2 Hct 39.1 MCV 99.2 H MCH 31.0 MCHC 31.2 L RDW 15.6 H RDW Differential 54.8 H Plt Count 388 MPV 9.4 Immature Gran % (Auto) 0.500 Neut % (Auto) 74.6 H Lymph % (Auto) 10.8 L [place] % (Auto) 9.3 Eos % (Auto) 4.5 Baso % (Auto) 0.3 Absolute Neuts (auto) 4.5 Absolute Lymphs (auto) 0.65 L Total Counted Not Reportable PT INR Sodium 147 H Potassium 3.9 Chloride 105 Carbon Dioxide 37.0 H Anion Gap 5 BUN 21 H Creatinine 0.44 L Estim Creat Clear Calc 32.77 Est GFR (MDRD) Af Amer 178 Est GFR (MDRD) Non-Af 147 BUN/Creatinine Ratio 47.8 H Glucose 82 Calcium 7.9 L POC Glucose 92 07/24/17 07/24/17 05:20 06:30 WBC RBC Hgb Hct MCV MCH MCHC RDW RDW Differential Plt Count MPV Immature Gran % (Auto) Neut % (Auto) Lymph % (Auto) [place] % (Auto) Eos % (Auto) Baso % (Auto) Absolute Neuts (auto) Absolute Lymphs (auto) Total Counted PT 23.6 H INR 2.1 Sodium Potassium Chloride Carbon Dioxide Anion Gap BUN Creatinine Estim Creat Clear Calc Est GFR (MDRD) Af Amer Est GFR (MDRD) Non-Af BUN/Creatinine Ratio Glucose Calcium POC Glucose 102 Operations: None Procedures: None Summary of Care Provided: The patient is a 77 year old Female with below past medical history hospitalized for acute respiratory failure requiring intubation secondary to acute on chronic systolic heart failure, complicated by C. diff colitis, dysphagia requiring specialized diet, admitted to TCU with debility, here for rehabilitation, strengthening, prior to discharge home with spouse. [] Discharge home with spouse, and Home Health Services for Physical, Occupational Therapy. Discharge Diet: No Restrictions Discharge Activity: Return to Normal Activity, May Shower, Use Walker Weight Bearing Status: Weight bearing as tolerated Call your doctor if you observe: Fever of 101 or Higher, Inability to urinate, Inability to have a bowel movement, Shortness of breath, Chest pain, Uncontrolled pain Home Medications: Medications to take at Discharge Nitroglycerin [Nitrostat] 0.4 mg SUBLINGUAL Q5M PRN #25 tablet 03/28/16 Warfarin [Coumadin] 3 mg PO DAILY 07/15/17 Acetaminophen [Tylenol] 500 mg PO Q6H PRN PRN tablet 07/24/17 Furosemide [Lasix] 40 mg PO BID@0600,1400 #60 tab 07/24/17 Lisinopril [Zestril] 2.5 mg PO DAILY #30 tab 07/24/17 Menthol/Lanolin/Calamine/Znox [Calmoseptine Ointment] 1 applic TOPICAL 0600,2200 tube 07/24/17 Metoprolol Tartrate [Lopressor (beta lili)] 12.5 mg PO BID #60 tab 07/24/17 Nystatin Powder [Mycostatin Powder] 1 applic TOPICAL 0600,2200 bottle 07/24/17 Potassium Chloride [K-Dur] 20 meq PO DAILY #30 tab 07/24/17 Spironolactone [Aldactone] 25 mg PO DAILY #30 tab 07/24/17 Vancomcyin 125 MG/ 5 ML Susp [Vancomycin 125mg/5mL Susp] 125 mg PO Q6 #16 cap 07/24/17 Following Prescrptions Were Given to Patient: Furosemide [Lasix] 40 mg PO BID@0600,1400 #60 tab Lisinopril [Zestril] 2.5 mg PO DAILY #30 tab Potassium Chloride [K-Dur] 20 meq PO DAILY #30 tab Spironolactone [Aldactone] 25 mg PO DAILY #30 tab Vancomcyin 125 MG/ 5 ML Susp [Vancomycin 125mg/5mL Susp] 125 mg PO Q6 #16 cap Metoprolol Tartrate [Lopressor (beta lili)] 12.5 mg PO BID #60 tab Other Amb Orders: Prothrombin Time w/INR Time Frame: 1 Day, Location: Laboratory Primary Care Physician: Warren Mendoza MD [Primary Care Provider] - Please follow up with your Primary Care Physician in: 1 week. Please Follow Up With: Dr. Harrison When: 2 weeks. Disposition: Home with Home Health Minutes spent on discharge:: 35 Patient Condition:: Good Medical Necessity - Tobacco Use Smoking Status: Never smoker Tobacco Use: Non-smoker Meaningful Use Info Meaningful Use Diagnoses (Choose all that apply): None applicable
--- NOTE | 2017-07-24 18:34 | HHNOTE_ITS ---
Home Health Note - Plan Overview of reason of hospitalization: The patient is a 77 year old Female with below past medical history hospitalized for acute respiratory failure requiring intubation secondary to acute on chronic systolic heart failure, complicated by C. diff colitis, dysphagia requiring specialized diet, admitted to TCU with debility, here for rehabilitation, strengthening, prior to discharge home with spouse. [] Discharge home with spouse, and Home Health Services for Physical, Occupational Therapy. Problems: Patient was seen for Shortness of breath (Acute) Abdominal pain (Acute) Acute respiratory failure (Acute) Acute on chronic systolic heart failure (Acute) Depression (Chronic) Anxiety (Chronic) Complete List of Medical Problems Shortness of breath (Acute) Abdominal pain (Acute) Acute respiratory failure (Acute) Acute on chronic systolic heart failure (Acute) Depression (Chronic) Anxiety (Chronic) Congestive heart failure (Chronic) H/O mitral valve replacement with mechanical valve (Chronic) Cirrhosis (Chronic) Hypertension (Chronic) GERD (gastroesophageal reflux disease) (Chronic) Atrial fibrillation (Chronic) CAD (coronary artery disease) (Chronic) Diabetes mellitus (Chronic) Hypertensive urgency (Acute) Epistaxis (Acute) Cardiomyopathy (Chronic) H/O tricuspid valve repair (Chronic) Hyperlipidemia (Chronic) Anxiety and depression (Chronic) - Requirements and Reasons Disciplines Needed/Ordered: Physical Therapy Reason for Disciplines: Disease Specific Monitoring/education, Medication Management/Knowledge Deficit, Gait Training, Fall Prevention, Home Safety/ Equipment Instruction, Balance and/or Posture Training Related To: Change in Medical Treatment Plan, Limited/Poor Endurance, Shortness of Breath with Activity, Physical Impairments, Unsteady Gait/Balance, Fall Risk Patient is unable to leave the home: Without Aid of Supportive Devices (crutches , cane, wheelchair, walker), Without the assistance of another person - Additional Disciplines Additional Disciplines Needed/Ordered: Occupational Therapy
[2017-07-24 21:06] VITALS: PULSE 75; O2SAT 96
[2017-07-24] MEDS: MELATONIN 10 MG TABLET PO (22:47)
[2017-07-25] MEDS: Furosemide 40 MG Tablet PO ×2 (05:47→13:24)
[2017-07-25] MEDS: Lisinopril 2.5 MG Tablet PO (05:47)
[2017-07-25] MEDS: Spironolactone 25 MG Tablet PO (05:47)
[2017-07-25 05:48] VITALS: BP 125/54; PULSE 72
[2017-07-25] MEDS: Metoprolol Tartrate 25 MG Tablet 12.5 MG PO ×2 (05:48→16:43)
[2017-07-25] MEDS: Menthol/Lanolin/Calamine/Znox 113 GM Tube 1 APPLIC TOPICAL ×2 (05:53→21:52)
[2017-07-25] MEDS: Nystatin Powder 15gm Bottle 1 APPLIC TOPICAL ×2 (05:54→21:53)
[2017-07-25 07:01] LABS: Bedside Glucose 89 mg/dL (70-110)
--- NOTE | 2017-07-25 07:26 | NURSING ---
Addendum entered by Lizeth Dill 07/25/17 07:50: Phone call placed to spouse. Spouse informed this nurse he will bring in medication bottles of pills pt takes at home to nurses' station. This nurse expressed concern to pt spouse about pt consuming medications without Drs knowledge. Pt spouse verbalized understanding. Will continue to monitor and asses. Original Note: COOK RESTAURANT informed this nurse pt has multiple pills in hospital gown pocket. This nurse to asses. Pt handed this nurse facial tissue with multiple pills, different shapes and sizes. Pt reported to this nurse she has a damaged liver and the herbs help. Pt unable to tell this nurse what the name of the pills are. This nurse expressed to pt the safety of consuming medications/herbs without Drs knowledge. This nurse informed pt the pills being consumed without Drs knowledge could interact with medications being provided by nursing staff. Pills from pt's pocket placed in locked medicine cabinet. Will continue to monitor and asses. Reported at shift change.
--- NOTE | 2017-07-25 07:48 | NURSING ---
Pt remains in special contact isolation this shift d/t c-diff
[2017-07-25 11:55] VITALS: PULSE 60
--- NOTE | 2017-07-25 12:56 | CASEMGMT ---
Insurance Clinical updates faxed to insurance. Will await continued stay determination. Auth #[id number] LUIS Cox
[2017-07-25 15:38] VITALS: BP 120/67; PULSE 75; RESP 18; TEMP 37.1; O2SAT 97
--- NOTE | 2017-07-25 15:49 | CASEMGMT ---
Social Work Met with pt and spouse in room. Pt requesting to return home on 07/31 and TCU team agreeable. NOMNOC signed and faxed to Kera at insurance. Pt will arrange transportation with pickup driver time of 1000 on 07/31. SW will follow to assist with d/c planning. LUIS Cox
[2017-07-25 16:43] VITALS: PULSE 75
[2017-07-25] MEDS: MELATONIN 10 MG TABLET PO (21:53)
--- NOTE | 2017-07-26 01:56 | NURSING ---
Pt remains in special precautions this shift dt Cdiff.
[2017-07-26] MEDS: Menthol/Lanolin/Calamine/Znox 113 GM Tube 1 APPLIC TOPICAL ×2 (05:29→21:00)
[2017-07-26] MEDS: Nystatin Powder 15gm Bottle 1 APPLIC TOPICAL ×2 (05:30→21:01)
[2017-07-26 05:32] VITALS: BP 143/72; PULSE 71
[2017-07-26] MEDS: Spironolactone 25 MG Tablet PO (05:32)
[2017-07-26] MEDS: Lisinopril 2.5 MG Tablet PO (05:32)
[2017-07-26] MEDS: Furosemide 40 MG Tablet PO ×2 (05:32→14:46)
[2017-07-26] MEDS: Metoprolol Tartrate 25 MG Tablet 12.5 MG PO ×2 (05:32→18:00)
[2017-07-26 14:12] VITALS: BP 117/59; PULSE 70; RESP 16; TEMP 36.9; O2SAT 96
--- NOTE | 2017-07-26 16:16 | NURSING ---
FORMING MACHINE TENDER CALLED AND WILL NOT BE HERE UNTIL 7P OR LATER. RN BOILER COVERER HELPER NOTIFIED, PT REFUSING TO BE STUCK UNLESS SHE IS GETTING A PICC PLACED. PT WAITING FOR PICC PLACEMENT TO GET IV ATB'S.
[2017-07-26 18:00] VITALS: BP 117/59; PULSE 70
--- NOTE | 2017-07-26 19:32 | NURSING ---
IT WAS REPORTED THAT PT TAKING HERBAL MEDICINES THAT HER WAS BRINGING IN, EXPLAINED TO PT AND THAT SHE SHOULD NOT BE TAKING THEM WHILE ON VANCOMYCIN TO HEAL HER BOWEL (CDIFF) INFECTION. EXPLAINED TO TO PLEASE NOT BRING IN STUFF FOR PT TO TAKE WITHOUT OUR KNOWLEDGE D/T HOSPITAL MEDS. PT & VERBALIZED UNDERSTANDING
--- NOTE | 2017-07-26 20:28 | NURSING ---
Pt remains in precautions this shift d/t cdiff.
[2017-07-26] MEDS: MELATONIN 10 MG TABLET PO (21:02)
[2017-07-27] MEDS: Lisinopril 2.5 MG Tablet PO (04:51)
[2017-07-27] MEDS: Spironolactone 25 MG Tablet PO (04:51)
[2017-07-27] MEDS: Furosemide 40 MG Tablet PO ×2 (04:51→13:42)
[2017-07-27 04:54] VITALS: BP 135/61; PULSE 67
[2017-07-27] MEDS: Metoprolol Tartrate 25 MG Tablet 12.5 MG PO ×2 (04:54→17:30)
[2017-07-27] MEDS: Menthol/Lanolin/Calamine/Znox 113 GM Tube 1 APPLIC TOPICAL ×2 (04:57→21:22)
[2017-07-27] MEDS: Nystatin Powder 15gm Bottle 1 APPLIC TOPICAL ×2 (04:57→21:23)
--- NOTE | 2017-07-27 08:44 | PCA ---
Staff supervised patient with breakfast in room
[2017-07-27 14:43] VITALS: BP 116/59; PULSE 66; RESP 16; TEMP 36.8; O2SAT 96
[2017-07-27 17:30] VITALS: PULSE 66
[2017-07-27] MEDS: MELATONIN 10 MG TABLET PO (21:22)
[2017-07-27] MEDS: Acetaminophen 500 MG Tablet PO (21:26)
[2017-07-27 21:42] VITALS: PULSE 72; O2SAT 95
--- NOTE | 2017-07-28 04:13 | NURSING ---
Pt requesting yellow Fall Risk bracelet be removed d/t being allergic to the color yellow. Pt states her chiropractor told her she was and that is what is making her weak. Bracelet removed at this time. Call light in reach.
[2017-07-28 04:49] VITALS: BP 129/52; PULSE 62
[2017-07-28] MEDS: Lisinopril 2.5 MG Tablet PO (04:49)
[2017-07-28] MEDS: Spironolactone 25 MG Tablet PO (04:49)
[2017-07-28] MEDS: Metoprolol Tartrate 25 MG Tablet 12.5 MG PO ×2 (04:49→18:22)
[2017-07-28] MEDS: Furosemide 40 MG Tablet PO ×2 (04:49→14:08)
[2017-07-28] MEDS: Nystatin Powder 15gm Bottle 1 APPLIC TOPICAL (04:52)
[2017-07-28] MEDS: Menthol/Lanolin/Calamine/Znox 113 GM Tube 1 APPLIC TOPICAL ×2 (04:53→21:54)
[2017-07-28 06:08] LABS: Prothrombin Time (Protime)PT. 30.9 SECONDS (11.7-14.9)
--- NOTE | 2017-07-28 14:03 | CASEMGMT ---
Brief interview for mental status (BIMS) and resident mood interview (PHQ-9) completed on this day. BIMS score 03/21. PHQ-9 score 05/03
--- NOTE | 2017-07-28 14:05 | CASEMGMT ---
Social Work Spoke with resident in room. This transition social worker collaborating with resident on discharge plan. Resident reporting to have all needed durable medical equipment already set up within the home. No further therapy recommendations at this time. Resident planning to discharge home with spouse. Resident spouse to provide transportation home for resident at time of discharge. Support given. Proposed discharge date: 07/30/17 PLAN: Discharge home with spouse. Lora SMITH, HAND SEWER SHOES
[2017-07-28 15:55] VITALS: BP 130/55; PULSE 75; RESP 16; TEMP 36.3; O2SAT 97
[2017-07-28 18:22] VITALS: BP 130/55; PULSE 75
[2017-07-28 19:58] VITALS: RESP 16
[2017-07-28] MEDS: MELATONIN 10 MG TABLET PO (21:52)
[2017-07-28] MEDS: Acetaminophen 500 MG Tablet PO (21:52)
[2017-07-29] MEDS: Menthol/Lanolin/Calamine/Znox 113 GM Tube 1 APPLIC TOPICAL ×2 (06:10→21:45)
[2017-07-29] MEDS: Lisinopril 2.5 MG Tablet PO (06:10)
[2017-07-29] MEDS: Spironolactone 25 MG Tablet PO (06:10)
[2017-07-29] MEDS: Nystatin Powder 15gm Bottle 1 APPLIC TOPICAL ×2 (06:10→21:46)
[2017-07-29] MEDS: Furosemide 40 MG Tablet PO ×2 (06:10→14:42)
[2017-07-29 06:11] VITALS: PULSE 63
[2017-07-29] MEDS: Metoprolol Tartrate 25 MG Tablet 12.5 MG PO ×2 (06:11→18:01)
[2017-07-29 06:15] VITALS: BP 126/52; PULSE 63
[2017-07-29 16:00] VITALS: BP 111/41; PULSE 67; RESP 18; TEMP 36.8; O2SAT 97
[2017-07-29 18:01] VITALS: BP 111/41; PULSE 67
[2017-07-29] MEDS: MELATONIN 10 MG TABLET PO (21:45)
[2017-07-29] MEDS: Acetaminophen 500 MG Tablet PO (21:50)
--- NOTE | 2017-07-30 00:25 | NURSING ---
Pt remained in contact precautions during shift d/t CDIFF
[2017-07-30 05:57] VITALS: BP 122/54; PULSE 60
[2017-07-30] MEDS: Metoprolol Tartrate 25 MG Tablet 12.5 MG PO (05:57)
[2017-07-30 05:58] LABS: Absolute Neutrophil Count 4.4 X10^3/uL (2.0-7.7); Basophil# 0.02 X10^3/uL; Basophil% 0.3 % (0-1); Eosinophil# 0.13 X10^3/uL; Eosinophils% 2.2 % (0-5); Hematocrit 39.3 % (37-47); Hemoglobin 12.6 g/dl (12.0-15.0); Lymphocyte % 11.9 % (19-41); Mean Corp Hgb Conc 32.1 g/gl (32-36); Mean Corpuscular Hgb 30.6 pg (27.0-32.0); Mean Corpuscular Volume 95.4 fL (81-99); Mean Platelet Vol. 9.7 fl (6.2-12.0); Monocyte# 0.67 X10^3/uL; Monocyte% 11.4 % (0-10); Neutrophil # 4.36 X10^3/uL (2.7-7.7); Neutrophil % 73.9 % (47-70); Platelet Count 320 K/mm3 (150-450); RBC Distribution Width CV 15.6 % (11.6-14.6); RBC Distribution Width SD 52.4 fl (35.1-43.9); Red Blood Count 4.12 M/mm3 (4.2-5.4); White Blood Count 5.9 K/mm3 (4.4-11.0)
[2017-07-30] MEDS: Lisinopril 2.5 MG Tablet PO (05:58)
[2017-07-30] MEDS: Furosemide 40 MG Tablet PO (05:58)
[2017-07-30] MEDS: Spironolactone 25 MG Tablet PO (05:58)
[2017-07-30] MEDS: Nystatin Powder 15gm Bottle 1 APPLIC TOPICAL (06:02)
[2017-07-30] MEDS: Menthol/Lanolin/Calamine/Znox 113 GM Tube 1 APPLIC TOPICAL (06:02)
[2017-07-30 06:12] LABS: POSITIVE COUNT NO; POSITIVE DIFFERENTIAL NO; POSITIVE MORPHOLOGY NO
[2017-07-30 06:21] LABS: Anion Gap 5 (5-15); BUN 23 mg/dL (7-18); BUN/Creat Ratio 41.5 RATIO (10-20); Calcium,Total 8.1 mg/dL (8.5-10.1); Chloride 104 mmol/L (98-107); Creatinine, Serum 0.55 mg/dL (0.55-1.02); EST Glomerular Filtration Rate 112 mL/min (>60); Est Glom Filt Rate - Afr Amer 136 mL/min (>60); Estimated Creatinine Clearance 32.77 ml/min; Glucose 79 mg/dL (74-106); Potassium 4.4 mmol/L (3.5-5.1); Sodium Level 140 mmol/L (136-145)
[2017-07-30 09:33] VITALS: BP 106/46; PULSE 60; RESP 16; TEMP 36.3; O2SAT 92
--- NOTE | 2017-07-30 12:42 | CASEMGMT ---
Insurance Notified insurance of resident discharge on 07/30/17. Resident discharge home with spouse. Auth#[id number] Lora SMITH, PRACTICAL NURSE
--- NOTE | 2017-07-30 12:49 | MDS.RN ---
Information for the mds was obtained from review of the clinical record, interview of resident, staff, and direct observation of resident's care.
== END 2017-07-30 10:00 | disposition home or self-care (01) | DRG 947 ==
PROVIDERS: Admitting Provider Family Medicine Geriatric Medicine; Family Provider Family Medicine; PCP Family Medicine; Visit Provider Family Medicine Geriatric Medicine
DX: R53.81 Other malaise (principal); I50.23 Acute on chronic systolic (congestive) heart failure; A04.72 Enterocolitis due to Clostridium difficile, not specified as recurrent; I11.0 Hypertensive heart disease with heart failure; I25.10 Atherosclerotic heart disease of native coronary artery without angina pectoris; I48.91 Unspecified atrial fibrillation; E87.6 Hypokalemia; R13.10 Dysphagia, unspecified; K21.9 Gastro-esophageal reflux disease without esophagitis; E78.5 Hyperlipidemia, unspecified; E11.9 Type 2 diabetes mellitus without complications; Z79.899 Other long term (current) drug therapy; I27.20 Pulmonary hypertension, unspecified; Z95.1 Presence of aortocoronary bypass graft; Z23 Encounter for immunization; Z95.2 Presence of prosthetic heart valve
CPT/HCPCS: 36415; 80048; 82962; 85025; 85610; 92507; 92526; 92610; 97110; 97116; 97162; 97166; 97530; 97535; 90670

== ENCOUNTER → 2017-08-08 14:31 | Outpatient (CLI) | payer MEDICARE, SELFPAY ==
--- NOTE | 2017-08-08 14:40 | RAD_ITS ---
STUDY: X-RAY CHEST REASON FOR EXAM: Female, 77 years old. Shortness of breath TECHNIQUE: PA and lateral views of the chest. COMPARISON: 07/18/2017 FINDINGS: There is hyperinflation of the lungs consistent with chronic obstructive lung disease (COPD). Right lower lobe airspace disease with small effusion. Left lung is essentially clear. Sternal cerclage wires are present from a prior sternotomy. Moderate cardiomegaly. Normal mediastinum and alona. Normal visualized pulmonary arteries. There is atherosclerotic tortuosity of the aortic arch and descending thoracic aorta. There are diffuse degenerative changes of the visualized thoracic spine. There is degenerative osteoarthritis of the bilateral shoulders. There is no demonstrated abnormality of the visualized soft tissue structures of the upper abdomen. RAD/Chest PA and Lateral IMPRESSION: COPD with right lower lobe airspace disease and effusion. Moderate cardiomegaly. Electronically Signed: Morteza Pinedo DO at 15:29 EDT Tel , Service support ,
[2017-08-08 15:38] LABS: International Normalized Ratio 2.1; Prothrombin Time (Protime)PT. 23.7 SECONDS (11.7-14.9)
[2017-08-08 15:54] LABS: Anion Gap 3 (5-15); BUN 18 mg/dL (7-18); BUN/Creat Ratio 34.7 RATIO (10-20); Calcium,Total 8.1 mg/dL (8.5-10.1); Chloride 104 mmol/L (98-107); Creatinine, Serum 0.52 mg/dL (0.55-1.02); EST Glomerular Filtration Rate 121 mL/min (>60); Est Glom Filt Rate - Afr Amer 147 mL/min (>60); Glucose 97 mg/dL (74-106); Potassium 4.2 mmol/L (3.5-5.1); Sodium Level 142 mmol/L (136-145)
== END ==
PROVIDERS: Hospitalist; Family Provider Family Medicine; PCP Family Medicine; Visit Provider Internal Medicine Cardiovascular Disease
DX: R06.02 Shortness of breath (principal); I50.22 Chronic systolic (congestive) heart failure
CPT/HCPCS: 36415; 71046; 80048; 85610

== ENCOUNTER 2017-08-29 10:08 | Emergency (ER) | payer MEDICARE, SELFPAY ==
[2017-08-29 10:09] VITALS: BP 132/68; PULSE 79; RESP 14; TEMP 37.2; O2SAT 98; BMI 25.0
--- NOTE | 2017-08-29 10:18 | CT_ITS ---
STUDY: CT BRAIN WITHOUT CONTRAST REASON FOR EXAM: Female, 77 years old. Laceration following a fall. RADIATION DOSAGE (If Supplied By Facility): CTDIvol = ( 44.99 ) mGy, DLP = ( 711.75 ) mGycm TECHNIQUE: Transaxial CT imaging of the brain was performed without administration of intravenous contrast material. Individualized dose optimization techniques were used for this CT. COMPARISON: None. FINDINGS: Scalp hematoma overlying the left frontal bone. Normal calvarium. There is mild cerebral atrophy with widening of the extra-axial spaces and ventricular dilatation. Encephalomalacia in the left cerebellar hemisphere and compared with prior infarction. There is also evidence of focal encephalomalacia in the posterior aspect of the left parietal occipital lobes in keeping with prior infarction. Normal basal ganglia and thalami. Normal brainstem. There is mild cerebellar atrophy. There is no intracranial hemorrhage. There are no findings of an acute ischemic infarction. Atherosclerotic calcification of the vertebral arteries and cavernous portions of the internal carotid arteries bilaterally. Normal visualized paranasal sinuses. CT/Brain/Head without Contrast IMPRESSION: Chronic involutional changes of the brain. Electronically Signed: Segundo Zamarripa MD at 11:09 EDT Tel [phone], Service support ,
--- NOTE | 2017-08-29 10:19 | RAD_ITS ---
STUDY: X-RAY - LEFT KNEE REASON FOR EXAM: Female, 77 years old. Pain following a fall. TECHNIQUE: 3 view(s) of the knee. COMPARISON: None. FINDINGS: Normal visualized distal femur. Normal visualized proximal tibia and fibula. Normal proximal tibiofibular articulation. Normal medial femorotibial compartment. Normal lateral femorotibial compartment. Normal patellofemoral articulation. Degenerative spurring at the insertion of the quadriceps tendon. Diffuse soft tissue swelling. RAD/Knee 3 Views IMPRESSION: Diffuse soft tissue swelling. Electronically Signed: Segundo Zamarripa MD at 11:23 EDT Tel [phone], Service support ,
[2017-08-29 10:47] LABS: Absolute Lymphocyte Count 0.94 X10^3/ul (0.83-4.51); Absolute Neutrophil Count 7.4 X10^3/uL (2.0-7.7); Basophil# 0.02 X10^3/uL; Basophil% 0.2 % (0-1); Eosinophil# 0.07 X10^3/uL; Eosinophils% 0.8 % (0-5); Hematocrit 37.3 % (37-47); Hemoglobin 12.2 g/dl (12.0-15.0); Lymphocyte # 0.94 X10^3/ul (4.0); Lymphocyte % 10.3 % (19-41); Mean Corp Hgb Conc 32.7 g/gl (32-36); Mean Corpuscular Hgb 30.9 pg (27.0-32.0); Mean Corpuscular Volume 94.4 fL (81-99); Mean Platelet Vol. 9.4 fl (6.2-12.0); Monocyte# 0.66 X10^3/uL; Monocyte% 7.2 % (0-10); Neutrophil # 7.41 X10^3/uL (2.7-7.7); POSITIVE COUNT NO; POSITIVE DIFFERENTIAL NO; POSITIVE MORPHOLOGY NO; Platelet Count 272 K/mm3 (150-450); RBC Distribution Width CV 16.8 % (11.6-14.6); RBC Distribution Width SD 56.6 fl (35.1-43.9); Red Blood Count 3.95 M/mm3 (4.2-5.4); White Blood Count 9.2 K/mm3 (4.4-11.0)
--- NOTE | 2017-08-29 10:50 | RAD_ITS ---
STUDY: X-RAY - RIGHT HUMERUS REASON FOR EXAM: Female, 77 years old. Pain following a fall. TECHNIQUE: 2 view(s) of the humerus. COMPARISON: None. FINDINGS: Oblique fracture of the proximal humeral diaphysis with overriding of the fracture fragments. Degenerative changes of the glenohumeral joint as well as narrowing of the space between the acromion and the humeral head in keeping with rotator cuff pathology. Soft tissue swelling. RAD/Humerus min 2 Views IMPRESSION: Oblique fracture through the proximal diaphysis of the humerus with overriding of the fracture fragment. Electronically Signed: Segundo Zamarripa MD at 11:25 EDT Tel [phone], Service support ,
[2017-08-29 10:54] LABS: Anion Gap 4 (5-15); BUN 15 mg/dL (7-18); BUN/Creat Ratio 24.4 RATIO (10-20); Calcium,Total 7.9 mg/dL (8.5-10.1); Chloride 106 mmol/L (98-107); Creatinine, Serum 0.61 mg/dL (0.55-1.02); EST Glomerular Filtration Rate 100 mL/min (>60); Est Glom Filt Rate - Afr Amer 121 mL/min (>60); Estimated Creatinine Clearance 32.77 ml/min; Glucose 124 mg/dL (74-106); Potassium 4.2 mmol/L (3.5-5.1); Sodium Level 138 mmol/L (136-145)
[2017-08-29 11:16] LABS: International Normalized Ratio 1.8; Prothrombin Time (Protime)PT. 20.6 SECONDS (11.7-14.9)
[2017-08-29] MEDS: Diphth,Pertuss(Acell),Tet Vac 0.5 ML Vial IM (11:17)
[2017-08-29] MEDS: Ondansetron 4 MG/2 ML Vial IV (11:25)
[2017-08-29] MEDS: Morphine 4 MG/ML Syringe IV (11:28)
--- NOTE | 2017-08-29 11:46 | ED.DCSUM_ITS ---
- ER Visit Summary Date of Service: 08/29/17 Chief Complaint: [Fall and injury right arm] History of Present Illness: The patient is a 77 F [presents to the emergency department after sustaining a mechanical fall this morning. 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 Patient did hit her head but no loss of consciousness. Patient is on Coumadin for history of mitral valve replacement. Patient denies any neck pain, chest pain, or abdominal pain. Patient has been ambulatory since the fall.] Physical Examination: [HEENT-PERRLA, EOMI. Cranial nerves II through XII grossly intact. TMs clear. Mucous membranes moist. No adenopathy. Patient has multiple abrasions to the forehead that are superficial without any bony step-offs noted. Patient has no C-spine tenderness on palpation and has normal active range of motion is painless. Cardiovascular-regular rate and rhythm without murmur or ectopy Lungs-clear to auscultation, chest wall stable without crepitus or subcu emphysema Abdomen-normoactive bowel sounds, soft, nontender, no rebound or rigidity, no peritoneal signs. Back exam-patient has no tenderness over the thoracic or lumbar spine. Extremities-intact ?4, normal range of motion, normal pulses. Right arm- patient has soft tissue swelling and ecchymosis to mid humerus on the right. Patient has limited range of motion at the glenohumeral joint secondary to pain. She is neurovascular intact distally. Left knee-patient has some mild diffuse soft tissue swelling and ecchymosis with superficial abrasions. Ligamentously stable. Neurovascular intact distally. Test Results: [CT scan of the brain without contrast showed chronic involutional changes. CBC with differential showed a white count of 9.2, hemoglobin 12, hematocrit 37, platelets 272. Chemistries unremarkable. INR was 1.8. X-rays of the left knee showed soft tissue swelling and no fractures. X-rays of the right humerus showed a fracture of the mid humerus spiral type.] Emergency Department Course and Treatment: [Patient was placed in long-arm splint. Patient was medicated with morphine and Zofran. Case was discussed with Dr. Kenan Weathers who is on-call for orthopedics.] Treatment Plan: [Patient will be given a sling and a prescription for [place] and advised to follow-up with orthopedics within next 3-5 days.] Disposition: [Discharged home in stable condition] Impression: [Mechanical fall Right humerus fracture Closed head injury Contusion left knee] This note was generated with [employer] dictation software. It may contain incorrect words, spelling, and punctuation that were not noted in review of the chart prior to signing ED Disposition - Plan for ED Patient: Chief Complaint: Upper Extremity Injury Referrals: Warren Mendoza MD [Primary Care Provider] -
--- NOTE | 2017-08-29 11:46 | ED.DEP ---
ED Disposition - Plan for ED Patient: Chief Complaint: Upper Extremity Injury Instructions: ED Fx Upper Ext, ED Head Injury Closed, ED Mechanical Fall, ED Contusion Lower Ext Prescriptions: Hydrocodone/Acetaminophen [[place] 5-325 Tablet] 1 - 2 ea PO 4X/DAY PRN PRN 5 Days #20 tab PRN Reason: Pain Referrals: Warren Mendoza MD [Primary Care Provider] - Kenan Weathers MD [STAFF PHYSICIAN] - 3-5 Days
[2017-08-29 11:59] VITALS: BP 109/45; PULSE 72; RESP 18; O2SAT 95
== END 2017-08-29 12:01 | disposition home or self-care (01) ==
PROVIDERS: Emergency Provider Emergency Medicine; Family Provider Family Medicine; PCP Family Medicine
DX: S42.341A Displaced spiral fracture of shaft of humerus, right arm, initial encounter for closed fracture (principal); S49.91XA Unspecified injury of right shoulder and upper arm, initial encounter; S00.81XA Abrasion of other part of head, initial encounter; W18.09XA Striking against other object with subsequent fall, initial encounter; Y93.9 Activity, unspecified; Y92.89 Other specified places as the place of occurrence of the external cause; Y99.9 Unspecified external cause status; I10 Essential (primary) hypertension; Z79.01 Long term (current) use of anticoagulants; Z79.899 Other long term (current) drug therapy; Z95.2 Presence of prosthetic heart valve
CPT/HCPCS: 70450; 73060; 73562; 80048; 85025; 85610; 90715; 96374; 96375; 99285; J7030; A4216; J2405

== ENCOUNTER → 2017-10-16 15:51 | Outpatient (CLI) | payer MEDICARE, SELFPAY ==
[2017-10-16 16:39] LABS: Hematocrit 37.1 % (37-47); Mean Corp Hgb Conc 32.3 g/gl (32-36); Mean Corpuscular Hgb 32.1 pg (27.0-32.0); Mean Corpuscular Volume 99.2 fL (81-99); Mean Platelet Vol. 9.7 fl (6.2-12.0); Platelet Count 346 K/mm3 (150-450); RBC Distribution Width CV 15.9 % (11.6-14.6); RBC Distribution Width SD 56.8 fl (35.1-43.9); Red Blood Count 3.74 M/mm3 (4.2-5.4); White Blood Count 6.8 K/mm3 (4.4-11.0)
[2017-10-16 16:46] LABS: International Normalized Ratio 1.1
[2017-10-16 16:50] LABS: Scan Indicated on CBC? Y/N NO
[2017-10-16 17:02] LABS: ALB/GLOB Ratio 0.6 RATIO (0.9-2.4); AST(SGOT) 36 U/L (15-37); Alanine Aminotransfer ALT/SGPT 21 U/L (13-56); Albumin, Serum 1.8 g/dL (3.2-5.0); Alkaline Phosphatase 55 U/L (45-117); Anion Gap 7 (5-15); BUN 15 mg/dL (7-18); Calcium,Total 8.1 mg/dL (8.5-10.1); Chloride 102 mmol/L (98-107); Cholesterol 178 mg/dL (200); Creatinine, Serum 0.58 mg/dL (0.55-1.02); EST Glomerular Filtration Rate 107 mL/min (>60); Est Glom Filt Rate - Afr Amer 130 mL/min (>60); Globulin 2.8 g/dL (2.2-4.2); Glucose 94 mg/dL (74-106); High Density Lipoprotein 37 mg/dL; Potassium 3.5 mmol/L (3.5-5.1); Protein, Total 4.6 g/dL (6.4-8.2); Sodium Level 144 mmol/L (136-145); Triglycerides 154 mg/dL; Very Low Density Lipoprotein 31 mg/dL (5-40)
[2017-10-16 17:22] LABS: BNP,B-Type NATRIURETIC PEPTIDE 114.7 pg/mL (0-100)
== END ==
PROVIDERS: Internal Medicine Cardiovascular Disease; Family Provider Family Medicine; PCP Family Medicine; Visit Provider Family Medicine
DX: I48.91 Unspecified atrial fibrillation (principal); I50.9 Heart failure, unspecified; E78.00 Pure hypercholesterolemia, unspecified; Z79.01 Long term (current) use of anticoagulants; Z95.2 Presence of prosthetic heart valve
CPT/HCPCS: 80053; 80061; 83880; 85027; 85610

== ENCOUNTER 2017-10-18 16:48 | Inpatient (IN) | payer MEDICARE, MEDICAID, SELFPAY ==
[2017-10-18] VITALS (13 sets, daily range): BP systolic 124–146; BP diastolic 58–71; PULSE 69–82; RESP 16–24; TEMP 36.4–37.2; O2SAT 92–97; BMI 24.0; BMI 24.1; BMI 25.9
--- NOTE | 2017-10-18 16:51 | CT_ITS ---
STUDY: CT BRAIN WITHOUT CONTRAST REASON FOR EXAM: Female, 77 years old. Confusion RADIATION DOSAGE (If Supplied By Facility): CTDIvol = ( 44.99 ) mGy, DLP = ( 745.49 ) mGycm TECHNIQUE: Transaxial CT imaging of the brain was performed without administration of intravenous contrast material. Individualized dose optimization techniques were used for this CT. 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 There is no acute bleed or infarct. There are stable chronic ischemic and atrophic changes. The ventricles are normal in configuration. There is no hydrocephalus. The visualized paranasal sinuses are clear. The mastoid air cells are well aerated. There is no skull fracture. 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 Stable chronic ischemic and atrophic changes. No acute intracranial abnormality. Electronically Signed: Lenin Finch, at 17:55 EDT Tel , Service support ,
--- NOTE | 2017-10-18 16:51 | EKG12_ITS ---
Test Reason : NEURO S/SX Blood Pressure : / mmHG Vent. Rate : 074 BPM Atrial Rate : 064 BPM P-R Int : 000 ms QRS Dur : 112 ms QT Int : 422 ms P-R-T Axes : 000 000 120 degrees QTc Int : 468 ms Atrial fibrillation Incomplete left bundle branch block ST & T wave abnormality, consider lateral ischemia Abnormal ECG Confirmed by SHEKHAR HIGUERA, MANOLO ([id number]), greeting card editor MILI MCMAHAN ([id number]) on 10/21/2017 1:43:34 PM Referred By: LUCÍA/JIMENA Confirmed By:MANOLO CORRIGAN MD
--- NOTE | 2017-10-18 17:10 | RAD_ITS ---
STUDY: X-RAY CHEST REASON FOR EXAM: Female, 77 years old. Cough TECHNIQUE: Frontal view of the chest COMPARISON: 08/08/2017 FINDINGS: There are moderate congestive changes noted. There are small bilateral pleural effusions with overlying atelectasis. There are no focal infiltrates. There is no pneumothorax. The heart is enlarged. The patient is status post sternotomy. RAD/Chest 1 View IMPRESSION: Cardiomegaly with moderate pulmonary vascular congestion and small bilateral pleural effusions. Electronically Signed: Lenin Finch, at 17:56 EDT Tel , Service support ,
[2017-10-18 17:13] LABS: Absolute Neutrophil Count 4.4 X10^3/uL (2.0-7.7); Basophil# 0.01 X10^3/uL; Basophil% 0.2 % (0-1); Eosinophil# 0.07 X10^3/uL; Eosinophils% 1.1 % (0-5); Hematocrit 36.6 % (37-47); Hemoglobin 11.8 g/dl (12.0-15.0); Lymphocyte % 20.6 % (19-41); Mean Corp Hgb Conc 32.2 g/gl (32-36); Mean Corpuscular Hgb 31.4 pg (27.0-32.0); Mean Corpuscular Volume 97.3 fL (81-99); Monocyte# 0.58 X10^3/uL; Monocyte% 9.2 % (0-10); Neutrophil # 4.35 X10^3/uL (2.7-7.7); Neutrophil % 68.9 % (47-70); Platelet Count 336 K/mm3 (150-450); RBC Distribution Width CV 15.9 % (11.6-14.6); RBC Distribution Width SD 56.7 fl (35.1-43.9); Red Blood Count 3.76 M/mm3 (4.2-5.4); White Blood Count 6.3 K/mm3 (4.4-11.0)
[2017-10-18 17:14] LABS: POSITIVE COUNT NO; POSITIVE DIFFERENTIAL NO; POSITIVE MORPHOLOGY NO
[2017-10-18 17:16] LABS: International Normalized Ratio 1.2; Prothrombin Time (Protime)PT. 15.2 SECONDS (11.7-14.9)
[2017-10-18 17:20] LABS: Partial Thromboplast Time 27.3 Seconds (24.1-36.2)
[2017-10-18 17:29] LABS: Anion Gap 7 (5-15); BUN 12 mg/dL (7-18); BUN/Creat Ratio 24.4 RATIO (10-20); Calcium,Total 8.1 mg/dL (8.5-10.1); Chloride 104 mmol/L (98-107); Creatinine, Serum 0.49 mg/dL (0.55-1.02); EST Glomerular Filtration Rate 129 mL/min (>60); Est Glom Filt Rate - Afr Amer 156 mL/min (>60); Estimated Creatinine Clearance 37.74 ml/min; Glucose 95 mg/dL (74-106); Potassium 3.5 mmol/L (3.5-5.1); Sodium Level 142 mmol/L (136-145)
--- NOTE | 2017-10-18 18:30 | ED.DCSUM_ITS ---
- ER Visit Summary Date of Service: 10/18/17 Chief Complaint: Speech difficulty History of Present Illness: The patient is a 77 F who presents with trouble with her speech. According to the , the patient was feeling dizzy this morning. He then noted that she was having trouble with her speech. This occurred more than 8 hours ago. She had did not have a headache. No nausea or vomiting. She is on Coumadin for a heart procedure in the past. She did have a broken humerus 6 weeks ago but that has not been causing any issues for her. She denies any chest pain or shortness of breath. She does have a history of CHF in the past Physical Examination: Vital signs reviewed. HEENT exam unremarkable. Heart is regular rate and rhythm without murmurs. Lungs are clear to auscultation. Abdomen is soft and nontender. Extremities reveal no edema. She does have a splint on the right upper extremity. Skin exam normal. Neurologic exam shows an NIH of 5. 2 points for questions, 2 points for language and one point for dysarthria. Test Results: EKG was A. fib at a rate of 74. Nonspecific ST and T-wave changes noted. CAT scan of the head revealed stable left-sided infarcts. Chest x-ray reveals evidence of CHF and cardiomegaly. The labs are unremarkable except for troponin of 0.09. Emergency Department Course and Treatment: Patient was treated with Lasix IV. She is not a TPA candidate due to being on Coumadin and out of the TPA window. Patient was discussed with hospitalist for admission to the hospital Treatment Plan: [] Disposition: Admit Impression: Expressive aphasia, CHF exacerbation This note was generated with [employer] dictation software. It may contain incorrect words, spelling, and punctuation that were not noted in review of the chart prior to signing ED Disposition - Plan for ED Patient: Chief Complaint: Neuro S/Sx Referrals: Warren Mendoza MD [Primary Care Provider] -
[2017-10-18] MEDS: Furosemide 40 MG/4 ML Vial IV (19:58)
--- NOTE | 2017-10-18 20:08 | ED.RN ---
family attempting to get someone to bring home medications. was explained on arrival to ED the importance of an accurate list.
--- NOTE | 2017-10-18 20:21 | NURSING ---
Called ED chicken tender, Erica at this time to confirm Pt is okay to come to PCU.
--- NOTE | 2017-10-18 20:30 | PCM.HP.STD ---
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 transplanted heart: [place] heart Qualified Code(s): I25.10 - Atherosclerotic heart disease of [place] coronary artery without angina pectoris (7) Shortness of breath Status: Acute (8) Abdominal pain Status: Acute (9) Acute respiratory failure Status: Acute (10) Acute on chronic systolic heart failure Status: Acute (11) Depression Status: Chronic History of Present Illness Date of Admission: 10/18/17 Chief Complaint: Slurred speech The patient is a 77 year old female w/ h/o chronic systolic heart failure, CAD, depression, h/o mitral valve replacement with mechanical valve, cirrhosis, HTN, afib, DMII, and tricuspid valve repair, and lipidemia admitted for slurred speech. Pt was unable to provide any history. History is taken for and family. She was dizzy this AM. After her dizziness, she had trouble speaking. She did not have a good night sleep last night. She was sleeping in the ED. Past Medical History Past Medical History (Chronic Problems): Chronic Problems (Last Updated 10/16/17 @ 13:54 by Siri Vo) Chronic systolic congestive heart failure (Chronic) Atherosclerotic heart disease of [place] coronary artery without angina pectoris (Chronic) Depression (Chronic) Anxiety (Chronic) 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 mechanical mitral valve replacement, tricuspid valve repair using 30mm Carrpenter- Edwars annuloplasty ring, Left atria; appendage exclusion 04/11/04 @ [facility] Dr. Addison Montague Cirrhosis (Chronic) Hypertension (Chronic) GERD (gastroesophageal reflux disease) (Chronic) Atrial fibrillation (Chronic) Diabetes mellitus (Chronic) Cardiomyopathy (Chronic) H/O tricuspid valve repair (Chronic) 27mm [place] mechanical mitral valve replacement, tricuspid valve repair using 30mm Carrpenter- Edwars annuloplasty ring, Left atria; appendage exclusion 04/11/04 @ [facility] Dr. Addison Montague Hyperlipidemia (Chronic) Anxiety and depression (Chronic) Medical History: Medical History (Last Reviewed 10/19/17 @ 02:25 by Baltazar Arizmendi MD) assisted (current) use of anticoagulants (Acute) Z79.01 Chronic systolic congestive heart failure (Chronic) I50.22 Atherosclerotic heart disease of [place] coronary artery without angina pectoris (Chronic) I25.10 Shortness of breath (Acute) R06.02 Abdominal pain (Acute) R10.9 Acute respiratory failure (Acute) J96.00 Acute on chronic systolic heart failure (Acute) I50.23 Depression (Chronic) F32.9 Anxiety (Chronic) F41.9 H/O mitral valve replacement with mechanical valve (Chronic) Z95.[address] [place] mechanical mitral valve replacement, tricuspid valve repair using 30mm Carrpenter- Edwars annuloplasty ring, Left atria; appendage exclusion 04/11/04 @ [facility] Dr. Addison Montague Cirrhosis (Chronic) K74.60 Hypertension (Chronic) I10 GERD (gastroesophageal reflux disease) (Chronic) K21.9 Atrial fibrillation (Chronic) I48.91 Diabetes mellitus (Chronic) E11.9 Hypertensive urgency (Acute) I16.0 Epistaxis (Acute) R04.0 Cardiomyopathy (Chronic) I42.9 Hyperlipidemia (Chronic) E78.5 Anxiety and depression (Chronic) History of CVA (cerebrovascular accident) Z86.73 Pulmonary hypertension I27.20 Allergies cortisone Allergy (Verified 08/29/17 10:09) Unknown Home Medications: Ambulatory Orders Medication Instructions Recorded Warfarin [Coumadin] 3 mg PO DAILY 07/15/17 lisinopril 2.5 mg tablet 2.5 mg PO DAILY #90 tab 08/01/17 metoprolol tartrate 25 mg tablet 12.5 mg PO BID #90 tab 08/01/17 nitroglycerin 0.4 mg sublingual 0.4 mg SUBLINGUAL Q5M PRN #25 tab 08/01/17 tablet potassium chloride ER 20 mEq 20 meq PO DAILY #90 tab 08/01/17 tablet,extended release(part/cryst) spironolactone 25 mg tablet 25 mg PO DAILY #90 tab 08/01/17 Hydrocodone/Acetaminophen [[place] 1 - 2 ea PO 4X/DAY PRN PRN 5 Days 08/29/17 5-325 Tablet] #20 tab Furosemide [Lasix] 20 mg PO BID@0600,1400 07/14/18 Surgical History: Surgical History (Last Reviewed 10/19/17 @ 02:25 by Baltazar Arizmendi MD) H/O tricuspid valve repair (Chronic) Z98.[address] [place] mechanical mitral valve replacement, tricuspid valve repair using 30mm Carrpenter- Edwars annuloplasty ring, Left atria; appendage exclusion 04/11/04 @ [facility] Dr. Addison Montague Hx of appendectomy Z90.49 Surgical History: appendectomy, coronary bypass surgery, - - MV Mechanical Valve [place], TV Repair. 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 Smoking Status: Never smoker - *Family History Maternal Family History: Family History (Last Reviewed 08/01/17 @ 08:45 by Siri Vo) Father CAD (coronary artery disease) Sudden cardiac , Onset Age: 68 History Items: No pertinent history Paternal Family History: Family History (Last Reviewed 08/01/17 @ 08:45 by Siri Vo) Father CAD (coronary artery disease) Sudden cardiac , Onset Age: 68 History Items: Heart Disease, Hypertension Review of Systems Unable to obtain accurate/complete ROS d/t: Unable to obtain secondary to dementia VTE Information - Inpt Only VTE Present on Admission: No VTE Mechan Device Prophylaxis: SCD's VTE Pharm Prophylaxis ordered?: Yes Patient Problems: Active and Suspected Problems (Last Updated 10/16/17 @ 13:54 by Siri Vo) Slurred speech (Acute) Heart failure (Acute) Elevated troponin (Acute) - Physical Exam General: Cooperative, No apparent distress, Confused HEENT: Atraumatic, PERRLA, EOMI, Normocephalic Neck: Supple, No JVD, Negative Carotid Bruits Lungs: Normal air movement, Diminished, Rales Cardiovascular: Irregular Rate, Murmur Abdomen: Bowel Sounds Present, Soft, Non Tender Extremities: No edema, Capillary Refill Less than 3 Seconds Skin: No rashes, No breakdown Musculoskeletal: No Tenderness to Palpation of Joints or Extremities Neurological: Cranial nerves II-XII grossly intact Psych/Mental Status: Normal Affect, Appropriate Vital Signs Temp Pulse Resp BP Pulse Ox 98.4 F 80 22 H 133/59 H 93 10/18/17 18:34 10/18/17 20:00 10/18/17 20:00 10/18/17 20:00 10/18/17 20:00 Assessment/Plan All Active Problems (Last Updated 10/16/17 @ 13:54 by Siri Vo) Slurred speech (Acute) Heart failure (Acute) Elevated troponin (Acute) assisted (current) use of anticoagulants (Acute) Shortness of breath (Acute) Abdominal pain (Acute) Acute respiratory failure (Acute) Acute on chronic systolic heart failure (Acute) Hypertensive urgency (Acute) Epistaxis (Acute) 77 year old female w/ h/o chronic systolic heart failure, CAD, depression, h/o mitral valve replacement with mechanical valve, cirrhosis, HTN, afib, DMII, and tricuspid valve repair, and lipidemia admitted for slurred speech. 1) Slurred speech: CT brain negative. Will get CTA brain and neck. Will also get ECHO. MRI in AM. Neuro check. Consult PT/OT. 2) Elevated trop: Probably type II vs NSTEMI. Will follow trops C/w meds. ECHO in AM. Diuresis given acute on chronic systolic heart failure. Consult surgery. Monitor. 3) Acute on chronic systolic heart failure: Diuresis with IV lasix. Monitor. 4) Chronic issues: CAD, depression, h/o mitral valve replacement with mechanical valve, cirrhosis, HTN, afib, DMII, and tricuspid valve repair, and lipidemia Resume home meds. Monitor. 5) Prophylaxis: SCD / coumadin.
--- NOTE | 2017-10-18 22:03 | ECHOD_ITS ---
Reason For Study: TIA/CVA Procedure This was a 2D Doppler, Color Flow transthoracic echocardiogram. Exam performed portable in patient room. Left Ventricle Normal LV size. The estimated ejection fraction is 25-30 %. Post operative septal motion. There is moderate to severe global hypokinesis of the left ventricle. Right Ventricle Normal RV size. Mild global right ventricular systolic dysfunction. Atria The left atrium is severely enlarged. The right atrium is severely enlarged. Mitral Valve Stable appearing mechanical mitral valve apparatus. Tricuspid Valve Mild diffuse thickening of the tricuspid valve. Mild to moderate (1-2+) tricuspid valve insufficiency. Pulmonary artery systolic pressure is 37 mmHg. An annuloplasty ring is noted in the tricuspid position. Aortic Valve Trisinus/trileaflet aortic valve. Trivial aortic valve insufficiency. Pulmonic Valve Normal pulmonic valve. Great Vessels Calcified aortic root. The pulmonary artery is normal size. Plethoric inferior vena cava. and partially collapses. Pericardium/Pleural No pericardial effusion. Medication Performed a rapid injection of agitated mix of 9 cc saline and 1cc air to assess for atrial septal defect. MMode/2D Measurements & Calculations LVIDd: 5.2 cm IVSd: 0.88 cm Ao root diam: 3.0 cm LVIDs: 4.7 cm LVPWd: 0.96 cm LA dimension: 7.4 cm FS: 10.5 % LAV(MOD-bp): 254.1 ml LAV(MOD-bp) Indexed: 161.9 ml/m2 LA A4 area: 47.7 cm2 RA A4 area: 39.5 cm2 LAV(MOD-sp2): 325.4 ml LAV(MOD-sp4): 199.4 ml Doppler Measurements & Calculations Ao V2 max: 254.2 cm/sec LV V1 max: 143.6 cm/sec PA V2 max: 152.2 cm/sec Ao max P.9 mmHg LV V1 max P.2 mmHg Ao V2 mean: 146.9 cm/sec LV V1 mean P.0 mmHg Ao mean P.8 mmHg LV V1 mean: 90.8 cm/sec Ao V2 VTI: 55.1 cm LV V1 VTI: 30.6 cm PI dec slope: 194.1 cm/sec2 TR max dara: 291.0 cm/sec TR max P.9 mmHg Interpretation Summary Normal LV size. The left atrium is severely enlarged. The right atrium is severely enlarged. Stable appearing mechanical mitral valve apparatus. An annuloplasty ring is noted in the tricuspid position. Pulmonary artery systolic pressure is 37 mmHg. Comp[ared to the previous the LV function is improved and the pulmonary pressures better The estimated ejection fraction is 25-30 %. Ordering Physician: Baltazar Arizmendi Referring Physician: Warren Mendoza Performed By: Oscar Sanchez RCS
--- NOTE | 2017-10-18 22:03 | CT_ITS ---
STUDY: CTA BRAIN WITH CONTRAST REASON FOR EXAM: Female, 77 years old. Slurred speech. RADIATION DOSAGE (If Supplied By Facility): CTDIvol = ( 15.07 ) mGy, DLP = ( 403.96 ) mGycm TECHNIQUE: Transaxial CTA post contrast administration. The examination was performed with intravenous administration of 75 ml of Isovue 370 contrast material. Sagittal and coronal reconstructions. Individualized dose optimization techniques were used for this CT. COMPARISON: CT head October 18, 2017. FINDINGS: Hypoplastic or absent right A1 segment of the anterior cerebral artery. Left anterior cerebral artery is normal. The middle cerebral arteries are normal. Right posterior cerebral artery is normal. origin of the left posterior cerebral artery. Normal anterior and posterior communicating arteries. Normal internal carotid arteries. Vertebral arteries are patent. Left vertebral artery is dominant. Old left occipital and left cerebellar hemisphere infarctions. CT/CTA Head W/WO Contrast IMPRESSION: No aneurysmal dilatation or high-grade stenosis. Hypoplastic or absent right A1 segment of the anterior cerebral artery. origin of the left posterior cerebral artery. Electronically Signed: Frederick Saurez MD at 2:37 EDT , Service support ,
--- NOTE | 2017-10-18 22:03 | CT_ITS ---
STUDY: CTA NECK WITH CONTRAST BILATERAL REASON FOR EXAM: Female, 77 years old. Slurred speech. RADIATION DOSAGE (If Supplied By Facility): CTDIvol = ( 15.07 ) mGy, DLP = ( 403.96 ) mGycm. Individualized dose optimization techniques were used for this CT.? TECHNIQUE: Axial images through the extracranial carotid arteries after administration of 75 mL Isovue 370 intravenous contrast sagittal and coronal reconstructions. COMPARISON: None. FINDINGS: Mild atherosclerotic calcification of the aortic arch. Normal region of the great vessels. Right common carotid artery and carotid bulb. Minimal atherosclerotic calcification right internal carotid artery of less than 20%. Normal external carotid artery. No aneurysmal dilatation or significant stenosis. Normal left common carotid artery. Minimal atherosclerotic calcification left carotid bulb. Normal internal and external carotid arteries. No aneurysmal dilatation or significant stenosis. Vertebral arteries are patent. Left vertebral artery is dominant. CT/CTA Neck W/WO Contrast IMPRESSION: No hemodynamically significant stenosis of the internal carotid arteries. Electronically Signed: Frederick Suarez MD at 2:50 EDT , Service support ,
[2017-10-18 23:27] LABS: BNP,B-Type NATRIURETIC PEPTIDE 152.8 pg/mL (0-100)
[2017-10-18] MEDS: Metoprolol Tartrate 25 MG Tablet 12.5 MG PO (23:55)
[2017-10-19] VITALS (19 sets, daily range): BP systolic 96–135; BP diastolic 46–69; PULSE 58–84; RESP 14–20; TEMP 36.7–36.9; O2SAT 91–95; BMI 25.9
[2017-10-19 05:54] LABS: Absolute Lymphocyte Count 0.61 X10^3/ul (0.83-4.51); Absolute Neutrophil Count 4.1 X10^3/uL (2.0-7.7); Basophil# 0.02 X10^3/uL; Basophil% 0.4 % (0-1); Eosinophil# 0.08 X10^3/uL; Eosinophils% 1.5 % (0-5); Hematocrit 35.4 % (37-47); Hemoglobin 11.1 g/dl (12.0-15.0); Lymphocyte # 0.61 X10^3/ul (4.0); Lymphocyte % 11.2 % (19-41); Mean Corp Hgb Conc 31.4 g/gl (32-36); Mean Corpuscular Hgb 30.9 pg (27.0-32.0); Mean Corpuscular Volume 98.6 fL (81-99); Mean Platelet Vol. 9.2 fl (6.2-12.0); Neutrophil # 4.12 X10^3/uL (2.7-7.7); Neutrophil % 75.9 % (47-70); Platelet Count 312 K/mm3 (150-450); RBC Distribution Width CV 15.9 % (11.6-14.6); RBC Distribution Width SD 57.6 fl (35.1-43.9); Red Blood Count 3.59 M/mm3 (4.2-5.4); White Blood Count 5.4 K/mm3 (4.4-11.0)
[2017-10-19 05:57] LABS: POSITIVE COUNT NO; POSITIVE DIFFERENTIAL NO; POSITIVE MORPHOLOGY NO
[2017-10-19 06:24] LABS: International Normalized Ratio 1.2; Prothrombin Time (Protime)PT. 15.5 SECONDS (11.7-14.9)
[2017-10-19 06:34] LABS: Anion Gap 8 (5-15); BUN 11 mg/dL (7-18); BUN/Creat Ratio 24.5 RATIO (10-20); Calcium,Total 7.8 mg/dL (8.5-10.1); Chloride 105 mmol/L (98-107); Cholesterol 157 mg/dL (200); Creatinine, Serum 0.45 mg/dL (0.55-1.02); EST Glomerular Filtration Rate 143 mL/min (>60); Est Glom Filt Rate - Afr Amer 173 mL/min (>60); Estimated Creatinine Clearance 32.77 ml/min; Glucose 78 mg/dL (74-106); High Density Lipoprotein 40 mg/dL; Potassium 3.1 mmol/L (3.5-5.1); Sodium Level 143 mmol/L (136-145); Triglycerides 111 mg/dL; Very Low Density Lipoprotein 22 mg/dL (5-40)
[2017-10-19 07:11] LABS: Bedside Glucose 83 mg/dL (70-110)
--- NOTE | 2017-10-19 08:03 | PCM.CONS.C ---
Reason for Consult Date of Consultation: 10/19/17 Reason for Consultation: Abnormal troponins History of Present Illness: The patient is a 77 year old F, patient of Dr. Scott, who has a history of nonischemic cardiomyopathy with nonobstructive coronary artery disease as diagnosed by catheterization on 06/14/[address] Harrison. She has a history of chronic atrial fibrillation, mechanical mitral valve repair, tricuspid valve repair with annuloplasty ring, chronic congestive heart failure with an EF of 15%, hypertension and hyperlipidemia.Patient has been previously hospitalized for IV Lasix therapy for lower extremity edema as well as chronic pleural effusions. She has been anticoagulated with Coumadin therapy. She was hospitalized in July for an exacerbation of congestive heart failure pleural effusion, was intubated and had a repeat echocardiogram diuresed and eventually discharged. She was followed up in the office and apparently was stable. She presented to the emergency room yesterday because her thought that she had some slurred speech. Her history is rather difficult to obtain. She had sustained a humeral fracture a few weeks ago but this does not appear to be causing her any problems. On presentation and to the emergency room cardiac enzymes were obtained and were noted to be abnormal and hence this consultation. She has no cardiac complaints no chest pain no shortness breath no paroxysmal nocturnal dyspnea. Past Medical History Allergies/Adverse Reactions: Allergies cortisone Allergy (Verified 08/29/17 10:09) Unknown Home Medications: Ambulatory Orders Medication Instructions Recorded Warfarin [Coumadin] 3 mg PO DAILY 07/15/17 lisinopril 2.5 mg tablet 2.5 mg PO DAILY #90 tab 08/01/17 metoprolol tartrate 25 mg tablet 12.5 mg PO BID #90 tab 08/01/17 nitroglycerin 0.4 mg sublingual 0.4 mg SUBLINGUAL Q5M PRN #25 tab 08/01/17 tablet potassium chloride ER 20 mEq 20 meq PO DAILY #90 tab 08/01/17 tablet,extended release(part/cryst) spironolactone 25 mg tablet 25 mg PO DAILY #90 tab 08/01/17 Hydrocodone/Acetaminophen [[place] 1 - 2 ea PO 4X/DAY PRN PRN 5 Days 08/29/17 5-325 Tablet] #20 tab Furosemide [Lasix] 20 mg PO BID@0600,1400 10/18/17 Past Medical History (Chronic Problems): Chronic Problems (Last Reviewed 10/19/17 @ 02:25 by Baltazar Arizmendi MD) Chronic systolic congestive heart failure (Chronic) Atherosclerotic heart disease of [place] coronary artery without angina pectoris (Chronic) Depression (Chronic) Anxiety (Chronic) 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 mechanical mitral valve replacement, tricuspid valve repair using 30mm Carrpenter- [place]wars annuloplasty ring, Left atria; appendage exclusion 04/11/04 @ [facility] Dr. Addison Montague Cirrhosis (Chronic) Hypertension (Chronic) GERD (gastroesophageal reflux disease) (Chronic) Atrial fibrillation (Chronic) Diabetes mellitus (Chronic) Cardiomyopathy (Chronic) H/O tricuspid valve repair (Chronic) 27mm [place] mechanical mitral valve replacement, tricuspid valve repair using 30mm Carrpenter- Edwars annuloplasty ring, Left atria; appendage exclusion 04/11/04 @ [facility] Dr. Addison Montague Hyperlipidemia (Chronic) Anxiety and depression (Chronic) Surgical History: appendectomy, coronary bypass surgery, - - MV Mechanical Valve [place], TV Repair. 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 - *Family History Maternal Family History: Family History (Last Reviewed 08/01/17 @ 08:45 by Siri Vo) Father CAD (coronary artery disease) Sudden cardiac , Onset Age: 68 History Items: No pertinent history Paternal Family History: Family History (Last Reviewed 08/01/17 @ 08:45 by Siri Vo) Father CAD (coronary artery disease) Sudden cardiac , Onset Age: 68 History Items: Heart Disease, Hypertension Smoking Status: Never smoker Alcohol: None Drugs: None Review of Systems - Review of Systems General: Denies: Fever, Night Sweats, Fatigue Cardiovascular: Denies: Chest Discomfort, Shortness of Breath, Orthopnea, PND, Peripheral Edema, Palpitations, Lightheadedness, Dizziness, Near Syncope, Syncope Respiratory: Denies: Cough, Sputum Production, Hemoptysis Gastrointestinal: Denies: Hematemesis, Hematochezia, Melena Genitourinary: Denies: Dysuria, Hematuria Skin: Denies: Rash Neurological: Reports: Confusion, History of TIA. Denies: Dizziness Endocrine: Denies: Heat Intolerance, Cold Intolerance Hematologic/ Lymphatic: Denies: Anemia Subjectve: Frail cachectic lady lying in bed Objective: Vital Signs Temp Pulse Resp BP Pulse Ox 98.1 F 69 16 127/49 H 92 10/19/17 07:50 10/19/17 07:50 10/19/17 07:50 10/19/17 07:50 10/19/17 07:50 Oxygen Delivery Method Room Air Weight: 132 lb 7.965 oz Body Mass Index (BMI) 25.9 Intake and Output for Last 24 Hours 10/17/17 10/18/17 10/19/17 23:59 23:59 23:59 Intake Total Balance General: Awake, Alert, Ill Appearing HEENT: PERRL, EOMI, Sclera Non Icteric Neck: Supple, Good ROM, No Lymph Node Enlargement Lungs: Clear to auscultation Cardiovascular: Irregular Rhythm, Normal S2, No Rubs, No Gallops, [place] Prosthetic S1 Murmur Murmur: Grade 1/6, Early Systolic, LLSB Vascular: No Carotid Bruits, Normal Femoral Pulses, Normal Radial Pulses, Normal Dorsalis Pedal Pulse, Normal Posterior Tibial Pulses Abdomen: Bowel Sounds Present, Soft, Non Tender, No HSM, No Organomegaly Extremities: No Cyanosis, No Clubbing, No edema Musculoskeletal: No Erythema Lymphatic: No Lymph Node Enlargement Neurological: No Focal Motor or Sensory Deficit Psych/Mental Status: Flat Affect 10/18/17 22:35: Troponin I 0.105 H 10/19/17 01:49: Troponin I 0.103 H 10/19/17 04:54: Sodium 143, Potassium 3.1 L, Chloride 105, Carbon Dioxide 30.0, Anion Gap 8, BUN 11, Creatinine 0.45 L, Est GFR (MDRD) Af Amer 173, Est GFR (MDRD) Non-Af 143, BUN/Creatinine Ratio 24.5 H, Glucose 78, Calcium 7.8 L, Triglycerides 111, Cholesterol 157, LDL Cholesterol 95, VLDL Cholesterol 22, HDL Cholesterol 40 10/19/17 04:54: WBC 5.4, RBC 3.59 L, Hgb 11.1 L, Hct 35.4 L, MCV 98.6, MCH 30.9, MCHC 31.4 L, RDW 15.9 H, RDW Differential 57.6 H, Plt Count 312, MPV 9.2, Immature Gran % (Auto) 0.000, Neut % (Auto) 75.9 H, Lymph % (Auto) 11.2 L, [place] % (Auto) 11.0 H, Eos % (Auto) 1.5, Baso % (Auto) 0.4, Absolute Neuts (auto) 4.1, Total Counted Not Reportable 10/19/17 04:54: PT 15.5 H, INR 1.2 10/19/17 04:54: Troponin I 0.127 H Rhythm: EKG: Atrial fibrillation with a controlled ventricular response rate Assessment/Plan 1. Abnormal cardiac enzymes. Patient is noted to have mildly abnormal cardiac enzymes. The significance of the above is not entirely clear. She does not have any obstructive coronary disease that has been documented recently. She does have significant left ventricular systolic dysfunction and it is likely and possible that some of the cardiac enzyme abnormality is secondary to this. At this juncture I would not suggest any further workup workup as it is likely demand in character. In addition I do not think that she is a candidate for any invasive therapy. 2. Chronic congestive heart failure-systolic She does have a history of systolic heart failure which appears to be chronic. On this particular admission she does not appear to have a recurrence of the above. The plan will be for her to continue her current medications with the beta-lili as well as the [place] inhibitor. She recently had an echocardiogram which characterized her ejection fraction is approximately 10-15%, biatrial enlargement was noted and moderate pulmonary hypertension was present. It was not significantly changed compared to the one previously. 3. Cardiomyopathy. She does have a history of nonischemic cardiomyopathy. Ideally she should be a candidate for an implantable defibrillator. I would however leave this decision to Dr. Harjit Harrison her primary MD for outpatient follow-up and a further discussion regarding the above. Her frailty index however appears to be rather high and I am not sure that she has a long-term prognosis which may warrant to the above. 4. Status post mechanical mitral valve replacement She continues to do well with the above. She will remain anticoagulated per [place] heart prophylaxis as well as antibiotic prophylaxis. The plan is to keep her INR between 2.5 and 3.5. She has a [address] [place]'s mechanical mitral valve replacement. 5. Status post tricuspid annuloplasty. She does have a tricuspid annuloplasty ring which appears to be functioning well. No changes will be made. She still has moderate pulmonary hypertension as at her last echocardiogram. 6. Permanent atrial fibrillation She does have a history of permanent atrial fibrillation and remain on anticoagulation her ventricular response rate is well controlled at 74 on her electrocardiogram. Her medications have been reviewed and no changes will be made. 7. Frailty. She would appear to have a high frailty index which may have repercussions on any further tests that may need to be performed. At this time with her multiple medical problems I would recommend that some point a discussion be undertaken regarding her future medical expectations. Thank you for allowing me to participate in the care of your patient. Please don't hesitate to call if any issues arise
--- NOTE | 2017-10-19 08:21 | CON.PCM_ITS ---
Reason for Consult Date of Consultation: 10/19/17 Reason for Consultation: Abnormal troponins History of Present Illness: The patient is a 77 year old F, patient of Dr. Scott, who has a history of nonischemic cardiomyopathy with nonobstructive coronary artery disease as diagnosed by catheterization on 06/14/[address] Harrison. She has a history of chronic atrial fibrillation, mechanical mitral valve repair, tricuspid valve repair with annuloplasty ring, chronic congestive heart failure with an EF of 15 %, hypertension and hyperlipidemia.Patient has been previously hospitalized for IV Lasix therapy for lower extremity edema as well as chronic pleural effusions. She has been anticoagulated with Coumadin therapy. She was hospitalized in July for an exacerbation of congestive heart failure pleural effusion, was intubated and had a repeat echocardiogram diuresed and eventually discharged. She was followed up in the office and apparently was stable. She presented to the emergency room yesterday because her thought that she had some slurred speech. Her history is rather difficult to obtain. She had sustained a humeral fracture a few weeks ago but this does not appear to be causing her any problems. On presentation and to the emergency room cardiac enzymes were obtained and were noted to be abnormal and hence this consultation. She has no cardiac complaints no chest pain no shortness breath no paroxysmal nocturnal dyspnea. Past Medical History Allergies/Adverse Reactions: Allergies cortisone Allergy (Verified 08/29/17 10:09) Unknown Home Medications: Ambulatory Orders Medication Instructions Recorded Warfarin [Coumadin] 3 mg PO DAILY 07/15/17 lisinopril 2.5 mg tablet 2.5 mg PO DAILY #90 tab 08/01/17 metoprolol tartrate 25 mg tablet 12.5 mg PO BID #90 tab 08/01/17 nitroglycerin 0.4 mg sublingual 0.4 mg SUBLINGUAL Q5M PRN #25 tab 08/01/17 tablet potassium chloride ER 20 mEq 20 meq PO DAILY #90 tab 08/01/17 tablet,extended release(part/cryst) spironolactone 25 mg tablet 25 mg PO DAILY #90 tab 08/01/17 Hydrocodone/Acetaminophen [[place] 1 - 2 ea PO 4X/DAY PRN PRN 5 Days 08/29/17 5-325 Tablet] #20 tab Furosemide [Lasix] 20 mg PO BID@0600,1400 10/18/17 Past Medical History (Chronic Problems): Chronic Problems (Last Reviewed 10/19/17 @ 02:25 by Baltazar Arizmendi MD) Chronic systolic congestive heart failure (Chronic) Atherosclerotic heart disease of [place] coronary artery without angina pectoris (Chronic) Depression (Chronic) Anxiety (Chronic) 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 mechanical mitral valve replacement, tricuspid valve repair using 30mm Carrpenter- Edwars annuloplasty ring, Left atria; appendage exclusion 04/11/04 @ [facility] Dr. Addison Montague Cirrhosis (Chronic) Hypertension (Chronic) GERD (gastroesophageal reflux disease) (Chronic) Atrial fibrillation (Chronic) Diabetes mellitus (Chronic) Cardiomyopathy (Chronic) H/O tricuspid valve repair (Chronic) 27mm [place] mechanical mitral valve replacement, tricuspid valve repair using 30mm Carrpenter- Edwars annuloplasty ring, Left atria; appendage exclusion 04/11/04 @ [facility] Dr. Addison Montague Hyperlipidemia (Chronic) Anxiety and depression (Chronic) Surgical History: appendectomy, coronary bypass surgery, - - MV Mechanical Valve [place], TV Repair. 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 history - *Family History Maternal Family History: Family History (Last Reviewed 08/01/17 @ 08:45 by Siri Vo) Father CAD (coronary artery disease) Sudden cardiac , Onset Age: 68 History Items: No pertinent history Paternal Family History: Family History (Last Reviewed 08/01/17 @ 08:45 by Siri Vo) Father CAD (coronary artery disease) Sudden cardiac , Onset Age: 68 History Items: Heart Disease, Hypertension Smoking Status: Never smoker Alcohol: None Drugs: None Review of Systems - Review of Systems General: Denies: Fever, Night Sweats, Fatigue Cardiovascular: Denies: Chest Discomfort, Shortness of Breath, Orthopnea, PND, Peripheral Edema, Palpitations, Lightheadedness, Dizziness, Near Syncope, Syncope Respiratory: Denies: Cough, Sputum Production, Hemoptysis Gastrointestinal: Denies: Hematemesis, Hematochezia, Melena Genitourinary: Denies: Dysuria, Hematuria Skin: Denies: Rash Neurological: Reports: Confusion, History of TIA. Denies: Dizziness Endocrine: Denies: Heat Intolerance, Cold Intolerance Hematologic/ Lymphatic: Denies: Anemia Subjectve: Frail cachectic lady lying in bed Objective: Vital Signs Temp Pulse Resp BP Pulse Ox 98.1 F 69 16 127/49 H 92 10/19/17 07:50 10/19/17 07:50 10/19/17 07:50 10/19/17 07:50 10/19/17 07:50 Oxygen Delivery Method Room Air Weight: 132 lb 7.965 oz Body Mass Index (BMI) 25.9 Intake and Output for Last 24 Hours 10/17/17 10/18/17 10/19/17 23:59 23:59 23:59 Intake Total Balance General: Awake, Alert, Ill Appearing HEENT: PERRL, EOMI, Sclera Non Icteric Neck: Supple, Good ROM, No Lymph Node Enlargement Lungs: Clear to auscultation Cardiovascular: Irregular Rhythm, Normal S2, No Rubs, No Gallops, [place] Prosthetic S1 Murmur Murmur: Grade 1/6, Early Systolic, LLSB Vascular: No Carotid Bruits, Normal Femoral Pulses, Normal Radial Pulses, Normal Dorsalis Pedal Pulse, Normal Posterior Tibial Pulses Abdomen: Bowel Sounds Present, Soft, Non Tender, No HSM, No Organomegaly Extremities: No Cyanosis, No Clubbing, No edema Musculoskeletal: No Erythema Lymphatic: No Lymph Node Enlargement Neurological: No Focal Motor or Sensory Deficit Psych/Mental Status: Flat Affect 10/18/17 22:35: Troponin I 0.105 H 10/19/17 01:49: Troponin I 0.103 H 10/19/17 04:54: Sodium 143, Potassium 3.1 L, Chloride 105, Carbon Dioxide 30.0, Anion Gap 8, BUN 11, Creatinine 0.45 L, Est GFR (MDRD) Af Amer 173, Est GFR ( MDRD) Non-Af 143, BUN/Creatinine Ratio 24.5 H, Glucose 78, Calcium 7.8 L, Triglycerides 111, Cholesterol 157, LDL Cholesterol 95, VLDL Cholesterol 22, HDL Cholesterol 40 10/19/17 04:54: WBC 5.4, RBC 3.59 L, Hgb 11.1 L, Hct 35.4 L, MCV 98.6, MCH 30.9 , MCHC 31.4 L, RDW 15.9 H, RDW Differential 57.6 H, Plt Count 312, MPV 9.2, Immature Gran % (Auto) 0.000, Neut % (Auto) 75.9 H, Lymph % (Auto) 11.2 L, [place] % (Auto) 11.0 H, Eos % (Auto) 1.5, Baso % (Auto) 0.4, Absolute Neuts (auto) 4.1 , Total Counted Not Reportable 10/19/17 04:54: PT 15.5 H, INR 1.2 10/19/17 04:54: Troponin I 0.127 H Rhythm: EKG: Atrial fibrillation with a controlled ventricular response rate Assessment/Plan 1. Abnormal cardiac enzymes. Patient is noted to have mildly abnormal cardiac enzymes. The significance of the above is not entirely clear. She does not have any obstructive coronary disease that has been documented recently. She does have significant left ventricular systolic dysfunction and it is likely and possible that some of the cardiac enzyme abnormality is secondary to this. * At this juncture I would not suggest any further workup workup as it is likely demand in character. In addition I do not think that she is a candidate for any invasive therapy. * 2. Chronic congestive heart failure-systolic She does have a history of systolic heart failure which appears to be chronic. On this particular admission she does not appear to have a recurrence of the above. The plan will be for her to continue her current medications with the beta-lili as well as the [place] inhibitor. She recently had an echocardiogram which characterized her ejection fraction is approximately 10-15%, biatrial enlargement was noted and moderate pulmonary hypertension was present. It was not significantly changed compared to the one previously. 3. Cardiomyopathy. She does have a history of nonischemic cardiomyopathy. Ideally she should be a candidate for an implantable defibrillator. I would however leave this decision to Dr. Harjit Harrison her primary MD for outpatient follow-up and a further discussion regarding the above. Her frailty index however appears to be rather high and I am not sure that she has a long-term prognosis which may warrant to the above. 4. Status post mechanical mitral valve replacement She continues to do well with the above. She will remain anticoagulated per [place] heart prophylaxis as well as antibiotic prophylaxis. The plan is to keep her INR between 2.5 and 3.5. She has a [address] [place]'s mechanical mitral valve replacement. 5. Status post tricuspid annuloplasty. She does have a tricuspid annuloplasty ring which appears to be functioning well. No changes will be made. She still has moderate pulmonary hypertension as at her last echocardiogram. 6. Permanent atrial fibrillation She does have a history of permanent atrial fibrillation and remain on anticoagulation her ventricular response rate is well controlled at 74 on her electrocardiogram. * Her medications have been reviewed and no changes will be made. * 7. Frailty. She would appear to have a high frailty index which may have repercussions on any further tests that may need to be performed. At this time with her multiple medical problems I would recommend that some point a discussion be undertaken regarding her future medical expectations. Thank you for allowing me to participate in the care of your patient. Please don't hesitate to call if any issues arise
[2017-10-19] MEDS: Lisinopril 2.5 MG Tablet PO (09:50)
[2017-10-19] MEDS: Metoprolol Tartrate 25 MG Tablet 12.5 MG PO ×2 (09:50→21:12)
[2017-10-19] MEDS: 0.9% NaCl Peripheral Flush Adult/Peds IV (09:50)
[2017-10-19] MEDS: Aspirin 81 MG TAB.CHEW PO (09:50)
[2017-10-19] MEDS: Spironolactone 25 MG Tablet PO (09:50)
[2017-10-19] MEDS: Furosemide 40 MG/4 ML Vial IV ×2 (09:50→16:59)
--- NOTE | 2017-10-19 12:01 | PCM.PN.HOSP ---
Patient Problems: Active and Suspected Problems (Last Reviewed 10/19/17 @ 02:25 by Baltazar Arizmendi MD) Slurred speech (Acute) Heart failure (Acute) Elevated troponin (Acute) CVA (cerebral vascular accident) (Acute) Subjective: Patient poor historian unable to give any specific feedback in regards to her symptoms. Vitals/I&O's: Vital Signs Temp Pulse Resp BP Pulse Ox 36.7 C 66 16 127/49 H 92 10/19/17 07:50 10/19/17 11:18 10/19/17 07:50 10/19/17 07:50 10/19/17 07:50 Oxygen Delivery Method Room Air Weight: 60.1 kg Body Mass Index (BMI) 25.9 Intake and Output for Last 24 Hours 10/17/17 10/18/17 10/19/17 23:59 23:59 23:59 Intake Total Balance General: Alert, - - Pleasantly confused HEENT: PERRLA, EOMI, - - Temporal wasting Oral: Moist Mucosa, No Gingival or Mucosal Lesions/ Ulcerations Neck: No Nodes, Thyroid Normal Size and Texture Lungs: Clear to auscultation, Normal air movement, No rhonchi, No wheeze Cardiovascular: Regular rate, Regular Rhythm, Normal S1, Normal S2, No murmurs Abdomen: Bowel Sounds Present, Soft, Non Tender, Non-Distended, No Hepato-splenomegaly Extremities: No edema, No Calf Tenderness Skin: - - Chronic skin changes on the right scalp no actual vesicular lesions are noted where there patient had previous zoster Musculoskeletal: Cachexia, Muscle Wasting Neurological: Cranial nerves II-XII grossly intact, Motor Exam 5/5 strength throughout, Muscle tone normal, Coordination normal, - - Required 2 people to assist her to the bed Psych/Mental Status: - - Pleasantly confused Laboratory Results 10/18/17 22:35: Troponin I 0.105 H, TSH 1.30 10/19/17 01:49: Troponin I 0.103 H 10/19/17 04:54: Sodium 143, Potassium 3.1 L, Chloride 105, Carbon Dioxide 30.0, Anion Gap 8, BUN 11, Creatinine 0.45 L, Estim Creat Clear Calc 32.77, Est GFR (MDRD) Af Amer 173, Est GFR (MDRD) Non-Af 143, BUN/Creatinine Ratio 24.5 H, Glucose 78, Calcium 7.8 L, Triglycerides 111, Cholesterol 157, LDL Cholesterol 95, VLDL Cholesterol 22, HDL Cholesterol 40 10/19/17 04:54: WBC 5.4, RBC 3.59 L, Hgb 11.1 L, Hct 35.4 L, MCV 98.6, MCH 30.9, MCHC 31.4 L, RDW 15.9 H, RDW Differential 57.6 H, Plt Count 312, MPV 9.2, Immature Gran % (Auto) 0.000, Neut % (Auto) 75.9 H, Lymph % (Auto) 11.2 L, [place] % (Auto) 11.0 H, Eos % (Auto) 1.5, Baso % (Auto) 0.4, Absolute Neuts (auto) 4.1, Absolute Lymphs (auto) 0.61 L, Total Counted Not Reportable 10/19/17 04:54: PT 15.5 H, INR 1.2 10/19/17 04:54: Troponin I 0.127 H 10/19/17 07:01: POC Glucose 83 Clinical Impression(s) from Imaging Studies Brain CT 10/18/17 16:51 IMPRESSION: 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 Stable chronic ischemic and atrophic changes. No acute intracranial abnormality. Electronically Signed: Lenin Finch, at 17:55 EDT Tel , Service support , Chest X-Ray 10/18/17 17:10 IMPRESSION: Cardiomegaly with moderate pulmonary vascular congestion and small bilateral pleural effusions. Electronically Signed: Lenin Finch, at 17:56 EDT Tel , Service support , Head CTA 10/18/17 22:03 IMPRESSION: No aneurysmal dilatation or high-grade stenosis. Hypoplastic or absent right A1 segment of the anterior cerebral artery. origin of the left posterior cerebral artery. Electronically Signed: Frederick Suarez MD at 2:37 EDT , Service support , Neck CTA 10/18/17 22:03 IMPRESSION: No hemodynamically significant stenosis of the internal carotid arteries. Electronically Signed: Frederick Suarez MD at 2:50 EDT , Service support , Brain MRI 10/19/17 22:03 IMPRESSION: Acute left temporal and thalamic infarcts. Acute right occipital infarct. Consider embolic etiologies. N.B. : The above information has been verbally conveyed by Marquise Mustafa MD to Radha Mccoy, [facility]- In-Patient RN, on 10/19/2017 11:45:07 (ET). Electronically Signed: Marquise Mustafa MD at 11:27 EDT Tel , Service support , Current Medications Acetaminophen (Tylenol) 500 mg PO Q6H PRN PRN PRN Reason: MILD PAIN (1-3) Aspirin (Aspirin, Baby) 81 mg PO DAILY@0800 [facility] Last Admin: 10/19/17 09:50 Dose: 81 mg Furosemide (Lasix) 40 mg IV BIDLX [facility] Last Admin: 10/19/17 09:50 Dose: 40 mg Lisinopril (Zestril) 2.5 mg PO DAILY [facility] Last Admin: 10/19/17 09:50 Dose: 2.5 mg Magnesium Hydroxide (Milk Of Magnesia) 30 ml PO DAILY PRN PRN Reason: Constipation Metoprolol Tartrate (Lopressor (Beta Latricia)) 12.5 mg PO BID [facility] Last Admin: 10/19/17 09:50 Dose: 12.5 mg Nitroglycerin (Nitrostat) 0.4 mg SUBLINGUAL Q5M PRN PRN Reason: Chest Pain Nutritional Formula (Lactose Free) (Ensure Enlive) 120 ml PO 4X/DAY [facility] Last Admin: 10/19/17 09:49 Dose: 120 ml Potassium Chloride (K-Dur) 20 meq PO DAILYCM [facility] Last Admin: 10/19/17 09:50 Dose: 20 meq Sodium Chloride () 5 - 30 ml IV UD PRN PRN Reason: SALINE FLUSH Last Admin: 10/19/17 09:50 Dose: 10 ml Spironolactone (Aldactone) 25 mg PO DAILY [facility] Last Admin: 10/19/17 09:50 Dose: 25 mg Warfarin Sodium (Coumadin (Pbkc)) 3 mg PO SuTuWeThFrSa@1700 PAT PRN Reason: Protocol Warfarin Sodium (Coumadin (Pbkc)) 1.5 mg PO Mo@1700 PAT PRN Reason: Protocol Medical Necessity - Tobacco Use Smoking Status: Never smoker Assessment/Plan All Active Problems (Last Reviewed 10/19/17 @ 02:25 by Baltazar Arizmendi MD) Slurred speech (Acute) Heart failure (Acute) Elevated troponin (Acute) CVA (cerebral vascular accident) (Acute) long-term (current) use of anticoagulants (Acute) Shortness of breath (Acute) Abdominal pain (Acute) Acute respiratory failure (Acute) Acute on chronic systolic heart failure (Acute) Hypertensive urgency (Acute) Epistaxis (Acute) 1. Embolic CVA Known afib with mechanical heart valve INR subtherapeutic, and has been more often than not on lab reviews Likely due to inadequate INR 2. Elevated troponins likely due to strain (type II) appreciate cardiac input. no additional evaluation Metoprolol, lisinopril, ASA start statin 3. Severe protein malnutrition, suspected patient is very gaunt with temporal wasting nutritional supplementation 4. Afib: rate controlled INR subtherapeutic 5. Mechanical Mitral Valve INR subtherapeutic Advance care planning. DW patient's son and daughter in law. Spent greater than 35 minutes outside of the history and physical about the patient's poor performance status and elevated troponins and the possibility of stroke. I also discussed with them to about DNR, endotracheal intubation and PEG tube's. I explained to them that I would discourage CPR, mechanical ventilation and PEG tubes if they were to be required in the event. The patient overall is a 38 very poor performance status requiring 2 people just to get up to the bed. Patient lives with her who himself is a very weak and of not much assistance, unfortunately. I talked to them also about a [facility] facilities and care and aids. Explained that hiring aids can be $15 per hour but that the patient if she were to go home would require essentially [id number] care. Code Visit Inpatient E&M: 03255 Subs Hosp L3 Procedures: 42297 Advncd Care Plan 30 Min
--- NOTE | 2017-10-19 12:05 | PN_ITS ---
Patient Problems: Active and Suspected Problems (Last Reviewed 10/19/17 @ 02:25 by Baltazar Arizmendi MD) Slurred speech (Acute) Heart failure (Acute) Elevated troponin (Acute) CVA (cerebral vascular accident) (Acute) Subjective: Patient poor historian unable to give any specific feedback in regards to her symptoms. Vitals/I&O's: Vital Signs Temp Pulse Resp BP Pulse Ox 36.7 C 66 16 127/49 H 92 10/19/17 07:50 10/19/17 11:18 10/19/17 07:50 10/19/17 07:50 10/19/17 07:50 Oxygen Delivery Method Room Air Weight: 60.1 kg Body Mass Index (BMI) 25.9 Intake and Output for Last 24 Hours 10/17/17 10/18/17 10/19/17 23:59 23:59 23:59 Intake Total Balance General: Alert, - - Pleasantly confused HEENT: PERRLA, EOMI, - - Temporal wasting Oral: Moist Mucosa, No Gingival or Mucosal Lesions/ Ulcerations Neck: No Nodes, Thyroid Normal Size and Texture Lungs: Clear to auscultation, Normal air movement, No rhonchi, No wheeze Cardiovascular: Regular rate, Regular Rhythm, Normal S1, Normal S2, No murmurs Abdomen: Bowel Sounds Present, Soft, Non Tender, Non-Distended, No Hepato- splenomegaly Extremities: No edema, No Calf Tenderness Skin: - - Chronic skin changes on the right scalp no actual vesicular lesions are noted where there patient had previous zoster Musculoskeletal: Cachexia, Muscle Wasting Neurological: Cranial nerves II-XII grossly intact, Motor Exam 5/5 strength throughout, Muscle tone normal, Coordination normal, - - Required 2 people to assist her to the bed Psych/Mental Status: - - Pleasantly confused Laboratory Results 10/18/17 22:35: Troponin I 0.105 H, TSH 1.30 10/19/17 01:49: Troponin I 0.103 H 10/19/17 04:54: Sodium 143, Potassium 3.1 L, Chloride 105, Carbon Dioxide 30.0, Anion Gap 8, BUN 11, Creatinine 0.45 L, Estim Creat Clear Calc 32.77, Est GFR ( MDRD) Af Amer 173, Est GFR (MDRD) Non-Af 143, BUN/Creatinine Ratio 24.5 H, Glucose 78, Calcium 7.8 L, Triglycerides 111, Cholesterol 157, LDL Cholesterol 95, VLDL Cholesterol 22, HDL Cholesterol 40 10/19/17 04:54: WBC 5.4, RBC 3.59 L, Hgb 11.1 L, Hct 35.4 L, MCV 98.6, MCH 30.9 , MCHC 31.4 L, RDW 15.9 H, RDW Differential 57.6 H, Plt Count 312, MPV 9.2, Immature Gran % (Auto) 0.000, Neut % (Auto) 75.9 H, Lymph % (Auto) 11.2 L, [place] % (Auto) 11.0 H, Eos % (Auto) 1.5, Baso % (Auto) 0.4, Absolute Neuts (auto) 4.1 , Absolute Lymphs (auto) 0.61 L, Total Counted Not Reportable 10/19/17 04:54: PT 15.5 H, INR 1.2 10/19/17 04:54: Troponin I 0.127 H 10/19/17 07:01: POC Glucose 83 Clinical Impression(s) from Imaging Studies Brain CT 10/18/17 16:51 IMPRESSION: 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 Stable chronic ischemic and atrophic changes. No acute intracranial abnormality. Electronically Signed: Lenin Finch, at 17:55 EDT Tel , Service support , Chest X-Ray 10/18/17 17:10 IMPRESSION: Cardiomegaly with moderate pulmonary vascular congestion and small bilateral pleural effusions. Electronically Signed: Lenin Finch, at 17:56 EDT Tel , Service support , Head CTA 10/18/17 22:03 IMPRESSION: No aneurysmal dilatation or high-grade stenosis. Hypoplastic or absent right A1 segment of the anterior cerebral artery. origin of the left posterior cerebral artery. Electronically Signed: Frederick Suarez MD at 2:37 EDT , Service support , Neck CTA 10/18/17 22:03 IMPRESSION: No hemodynamically significant stenosis of the internal carotid arteries. Electronically Signed: Frederick Suarez MD at 2:50 EDT , Service support , Brain MRI 10/19/17 22:03 IMPRESSION: Acute left temporal and thalamic infarcts. Acute right occipital infarct. Consider embolic etiologies. N.B. : The above information has been verbally conveyed by Marquise Mustafa MD to Radha Mccoy, [facility]- In-Patient RN, on 10/19/2017 11:45:07 (ET). Electronically Signed: Marquise Mustafa MD at 11:27 EDT Tel , Service support , Current Medications Acetaminophen (Tylenol) 500 mg PO Q6H PRN PRN PRN Reason: MILD PAIN (1-3) Aspirin (Aspirin, Baby) 81 mg PO DAILY@0800 [facility] Last Admin: 10/19/17 09:50 Dose: 81 mg Furosemide (Lasix) 40 mg IV BIDLX [facility] Last Admin: 10/19/17 09:50 Dose: 40 mg Lisinopril (Zestril) 2.5 mg PO DAILY [facility] Last Admin: 10/19/17 09:50 Dose: 2.5 mg Magnesium Hydroxide (Milk Of Magnesia) 30 ml PO DAILY PRN PRN Reason: Constipation Metoprolol Tartrate (Lopressor (Beta Latricia)) 12.5 mg PO BID [facility] Last Admin: 10/19/17 09:50 Dose: 12.5 mg Nitroglycerin (Nitrostat) 0.4 mg SUBLINGUAL Q5M PRN PRN Reason: Chest Pain Nutritional Formula (Lactose Free) (Ensure Enlive) 120 ml PO 4X/DAY [facility] Last Admin: 10/19/17 09:49 Dose: 120 ml Potassium Chloride (K-Dur) 20 meq PO DAILYCM [facility] Last Admin: 10/19/17 09:50 Dose: 20 meq Sodium Chloride () 5 - 30 ml IV UD PRN PRN Reason: SALINE FLUSH Last Admin: 10/19/17 09:50 Dose: 10 ml Spironolactone (Aldactone) 25 mg PO DAILY [facility] Last Admin: 10/19/17 09:50 Dose: 25 mg Warfarin Sodium (Coumadin (Pbkc)) 3 mg PO SuTuWeThFrSa@1700 PAT PRN Reason: Protocol Warfarin Sodium (Coumadin (Pbkc)) 1.5 mg PO Mo@1700 PAT PRN Reason: Protocol Medical Necessity - Tobacco Use Smoking Status: Never smoker Assessment/Plan All Active Problems (Last Reviewed 10/19/17 @ 02:25 by Baltazar Arizmendi MD) Slurred speech (Acute) Heart failure (Acute) Elevated troponin (Acute) CVA (cerebral vascular accident) (Acute) skilled nursing (current) use of anticoagulants (Acute) Shortness of breath (Acute) Abdominal pain (Acute) Acute respiratory failure (Acute) Acute on chronic systolic heart failure (Acute) Hypertensive urgency (Acute) Epistaxis (Acute) 1. Embolic CVA * Known afib with mechanical heart valve * INR subtherapeutic, and has been more often than not on lab reviews * Likely due to inadequate INR 2. Elevated troponins * likely due to strain (type II) * appreciate cardiac input. * no additional evaluation * Metoprolol, lisinopril, ASA * start statin 3. Severe protein malnutrition, suspected * patient is very gaunt with temporal wasting * nutritional supplementation 4. Afib: * rate controlled * INR subtherapeutic 5. Mechanical Mitral Valve * INR subtherapeutic Advance care planning. DW patient's son and daughter in law. Spent greater than 35 minutes outside of the history and physical about the patient's poor performance status and elevated troponins and the possibility of stroke. I also discussed with them to about DNR, endotracheal intubation and PEG tube's. I explained to them that I would discourage CPR, mechanical ventilation and PEG tubes if they were to be required in the event. The patient overall is a 38 very poor performance status requiring 2 people just to get up to the bed. Patient lives with her who himself is a very weak and of not much assistance, unfortunately. I talked to them also about a [facility] facilities and care and aids. Explained that hiring aids can be $15 per hour but that the patient if she were to go home would require essentially [id number] care. Code Visit Inpatient E&M: 11969 Subs Hosp L3 Procedures: 15711 Advncd Care Plan 30 Min
[2017-10-19 15:15] LABS: Partial Thromboplast Time 25.9 Seconds (24.1-36.2)
--- NOTE | 2017-10-19 22:03 | MRI_ITS ---
STUDY: MRI BRAIN WITHOUT CONTRAST REASON FOR EXAM: Female, 77 years old. Sudden onset of confusion, slurred speech and dizziness. Symptoms x 24 hrs, history of afib, cirrhosis, HTN. TECHNIQUE: Standardized multiplanar fat and water weighted pulse sequences were obtained. COMPARISON: CT of the head 10/18/2017 FINDINGS: There is mild cerebral atrophy with widening of the extra-axial spaces and ventricular dilatation. There are multiple white matter hyperintensities, distributed throughout the deep white matter tracts of the cerebral hemispheres, consistent with moderate chronic white matter ischemic changes. There is right thalamic and bilateral cerebellar chronic lacunar infarcts. There is restricted diffusion involving the left thalamus and medial left temporal lobe with drop of signal on ADC map, consistent with acute infarction. Additionally there is a 4 mm focus of restricted diffusion at the right occipital lobe (diffusion image #15 series 4), suspicious for acute infarction as well. Again noted are the chronic left occipital and left cerebellar infarcts. Normal flow voids within the major intracranial circulation suggesting patency by spin echo criteria. Normal sella turcica, pituitary gland, infundibular stalk, optic chiasm and hypothalamus. Normal tectal plate and pineal gland. Normal midbrain, pablo and medulla. Normal basal cisterns. Normal bilateral temporal bones. MRI/Brain without Contrast IMPRESSION: Acute left temporal and thalamic infarcts. Acute right occipital infarct. Consider embolic etiologies. N.B. : The above information has been verbally conveyed by Marquise Mustafa MD to Radha Mccoy, Hospital- In-Patient RN, on 10/19/2017 11:45:07 (ET). Electronically Signed: Marquise Mustafa MD at 11:27 EDT Tel , Service support ,
[2017-10-19 23:06] LABS: Partial Thromboplast Time 47.5 Seconds (24.1-36.2)
[2017-10-19] MEDS: Heparin Injection (Vial) 5,000 UNIT/ML VIAL IV (23:19)
[2017-10-20] VITALS (15 sets, daily range): BP systolic 122–157; BP diastolic 43–65; PULSE 61–86; RESP 16; TEMP 36.8–37.3; O2SAT 93–97; BMI 25.9
[2017-10-20 05:29] LABS: Absolute Neutrophil Count 5.5 X10^3/uL (2.0-7.7); Basophil# 0.02 X10^3/uL; Basophil% 0.3 % (0-1); Eosinophil# 0.09 X10^3/uL; Eosinophils% 1.3 % (0-5); Hematocrit 37.9 % (37-47); Hemoglobin 12.2 g/dl (12.0-15.0); Lymphocyte % 12.6 % (19-41); Mean Corp Hgb Conc 32.2 g/gl (32-36); Mean Corpuscular Hgb 31.9 pg (27.0-32.0); Mean Platelet Vol. 9.1 fl (6.2-12.0); Monocyte# 0.61 X10^3/uL; Monocyte% 8.6 % (0-10); Neutrophil # 5.48 X10^3/uL (2.7-7.7); Neutrophil % 76.9 % (47-70); Platelet Count 361 K/mm3 (150-450); RBC Distribution Width CV 15.8 % (11.6-14.6); RBC Distribution Width SD 56.2 fl (35.1-43.9); Red Blood Count 3.83 M/mm3 (4.2-5.4); White Blood Count 7.1 K/mm3 (4.4-11.0)
[2017-10-20 05:37] LABS: International Normalized Ratio 1.3; POSITIVE COUNT NO; POSITIVE DIFFERENTIAL NO; POSITIVE MORPHOLOGY NO; Prothrombin Time (Protime)PT. 15.7 SECONDS (11.7-14.9)
[2017-10-20 05:39] LABS: Partial Thromboplast Time 82.7 Seconds (24.1-36.2)
[2017-10-20 06:05] LABS: Anion Gap 8 (5-15); BUN 14 mg/dL (7-18); BUN/Creat Ratio 27.6 RATIO (10-20); Calcium,Total 8.3 mg/dL (8.5-10.1); Chloride 105 mmol/L (98-107); Creatinine, Serum 0.51 mg/dL (0.55-1.02); EST Glomerular Filtration Rate 124 mL/min (>60); Est Glom Filt Rate - Afr Amer 150 mL/min (>60); Estimated Creatinine Clearance 32.77 ml/min; Glucose 104 mg/dL (74-106); Potassium 3.4 mmol/L (3.5-5.1); Sodium Level 147 mmol/L (136-145)
[2017-10-20] MEDS: Aspirin 81 MG TAB.CHEW PO (08:22)
[2017-10-20] MEDS: Metoprolol Tartrate 25 MG Tablet 12.5 MG PO ×2 (10:18→21:59)
[2017-10-20] MEDS: Lisinopril 2.5 MG Tablet PO (10:19)
[2017-10-20] MEDS: Spironolactone 25 MG Tablet PO (10:19)
[2017-10-20] MEDS: Furosemide 40 MG/4 ML Vial IV (10:19)
--- NOTE | 2017-10-20 10:49 | CASEMGMT ---
Referral for Palliative/Hospice was sent to [facility]. Melyssa DONALDSON MSW
--- NOTE | 2017-10-20 10:51 | CASEMGMT ---
Face to Face with patient for initial transition planning/care coordination assessment. RN TAYLOR introduced self and role at [facility], family voices understanding and consents to assessment at this time. Pt is sitting up in chair in no distress but is incapable of answering CM assessment questions at this time. Pt is alert to person only at this time. Care providers, pharmacy, and demographics verified. See attached link. Family voices no further concerns/needs at this time. Advised family to ask for CM if any further questions/concerns/needs arise, voices understanding. Referral to for SNF placement, voices understanding. PLAN: SNF, TBD [facility]
[2017-10-20 11:21] LABS: Bedside Glucose 109 mg/dL (70-110)
--- NOTE | 2017-10-20 12:13 | CASEMGMT ---
MILENA Levi met w/son and daughter in law regarding discharge plan. They are considering halfway for pt, had asked about benefits and in network facilities, and specifically if [facility] is in network. This SW called [facility] regarding halfway benefits. Pt has no out of network benefits. Pt's in network benefits are as follows: Days 1-20, $0 copay. Days 21-100, $160 copay, all subject to precert. Pt has a max out of pocket for the year of $3600, pt has spent $1875. SW printed list of in network facilities near where pt lives, [facility] not on the list. SW called [facility], they are not in network. SW met w/son, daughter in law in room. SW reviewed benefits w/them and gave them a list of SNF's in network, let them know [facility] is not in network. Pt's came in a short time after. Family states they would like to speak w/other family members and will let SW know later today or tomorrow some SNF choices. SW did give them this SW's number and the number for Melyssa Levi to let us know choices. MILENA will continue to follow. CLAUDE Rodriguez, AIRPORT PL[employer]NER
[2017-10-20 12:15] LABS: Partial Thromboplast Time 60.1 Seconds (24.1-36.2)
--- NOTE | 2017-10-20 14:04 | CASEMGMT ---
MILENA spoke with Ana from Palliative Care and said she spoke with family. They would like to have patient go to a facility skilled and then they will call Hospice to let them know if they are interested in Palliative Care. Await family's choice on SNF. Melyssa DONALDSON [employer]
--- NOTE | 2017-10-20 15:25 | PN_ITS ---
<Troy Montilla - Last Filed: 10/20/17 15:19> Patient Problems: Active and Suspected Problems (Last Reviewed 10/19/17 @ 02:25 by Baltazar Arizmendi MD) Slurred speech (Acute) Heart failure (Acute) Elevated troponin (Acute) CVA (cerebral vascular accident) (Acute) Subjective: Pt resting comfortably in chair at bedside. No acute issues. Remains aphasic. Answering/yes no questions. Appears pleasant. - Physical Exam General: Alert, Oriented x3, Cooperative HEENT: Atraumatic, PERRLA, EOMI, Normocephalic Neck: Supple, No JVD, Negative Carotid Bruits Lungs: Clear to auscultation, Normal air movement Cardiovascular: Regular rate, No murmurs Abdomen: Bowel Sounds Present, Soft, Non Tender Extremities: No edema, Capillary Refill Less than 3 Seconds Skin: No rashes, No breakdown Musculoskeletal: No Tenderness to Palpation of Joints or Extremities Neurological: Cranial nerves II-XII grossly intact, - - aphasia Psych/Mental Status: Normal Affect, Appropriate Vital Signs Temp Pulse Resp BP Pulse Ox 98.8 F 62 16 124/45 H 94 10/20/17 11:50 10/20/17 11:50 10/20/17 11:50 10/20/17 11:50 10/20/17 11:50 Oxygen Delivery Method Room Air Weight: 132 lb 15.02 oz Body Mass Index (BMI) 25.9 Intake and Output for Last 24 Hours 10/18/17 10/19/17 10/20/17 23:59 23:59 23:59 Intake Total 657.5 / 657.5 410.8 / 410.8 Output Total 1200 / 1200 500 / 500 Balance -542.5 / -542.5 -89.2 / -89.2 Laboratory Tests Past 24 Hrs 10/19/17 10/19/17 10/20/17 14:50 22:48 05:10 WBC 7.1 RBC 3.83 L Hgb 12.2 Hct 37.9 MCV 99.0 MCH 31.9 MCHC 32.2 RDW 15.8 H RDW Differential 56.2 H Plt Count 361 MPV 9.1 Immature Gran % (Auto) 0.300 Neut % (Auto) 76.9 H Lymph % (Auto) 12.6 L Butler % (Auto) 8.6 Eos % (Auto) 1.3 Baso % (Auto) 0.3 Absolute Neuts (auto) 5.5 Absolute Lymphs (auto) 0.90 Total Counted Not Reportable PT INR APTT 25.9 47.5 H Sodium Potassium Chloride Carbon Dioxide Anion Gap BUN Creatinine Estim Creat Clear Calc Est GFR (MDRD) Af Amer Est GFR (MDRD) Non-Af BUN/Creatinine Ratio Glucose Calcium 10/20/17 10/20/17 10/20/17 05:10 05:10 11:45 WBC RBC Hgb Hct MCV MCH MCHC RDW RDW Differential Plt Count MPV Immature Gran % (Auto) Neut % (Auto) Lymph % (Auto) Butler % (Auto) Eos % (Auto) Baso % (Auto) Absolute Neuts (auto) Absolute Lymphs (auto) Total Counted PT 15.7 H INR 1.3 APTT 82.7 H 60.1 H Sodium 147 H Potassium 3.4 L Chloride 105 Carbon Dioxide 34.0 H Anion Gap 8 BUN 14 Creatinine 0.51 L Estim Creat Clear Calc 32.77 Est GFR (MDRD) Af Amer 150 Est GFR (MDRD) Non-Af 124 BUN/Creatinine Ratio 27.6 H Glucose 104 Calcium 8.3 L Medical Necessity - Tobacco Use Smoking Status: Never smoker Assessment/Plan All Active Problems (Last Reviewed 10/19/17 @ 02:25 by Baltazar Arizmendi MD) Slurred speech (Acute) Heart failure (Acute) Elevated troponin (Acute) CVA (cerebral vascular accident) (Acute) [employer] (current) use of anticoagulants (Acute) Shortness of breath (Acute) Abdominal pain (Acute) Acute respiratory failure (Acute) Acute on chronic systolic heart failure (Acute) Hypertensive urgency (Acute) Epistaxis (Acute) 1. Acute CVA embolic origin, right occipital, left temporal, left thalamic. See MRI. CTA neg. PT/OT/ST. Statin. Asa. Warfarin goal 2.5-3.5 Heparin drip in meantime. Echo pending. 2. Elevated trops - NSTEMI type 2 - cardiology following. Medical management. No intervention. BB, Micha, Asa, statin 3. Severe protein malnutrition - supplements 4. Debility - placement. 5. Permanent AF - blood thinners as above. Rate stable. Needs to f/u [employer] for possible pacemaker. 6. Mechanical MV - [facility]. Warfarin. 7. Hx CHF, sysolic - no signs of fluid overload. EF 10-15%, pulm htn. 8. Hypokalemia - replete. check in AM. DVT ppx: heparin/warfarin DC planning: PTOT, placement. Hospice to meet with patient and discuss options. This patient was seen by Troy Montilla PA-C under the supervision of Doctor Agustin. <Addison Velez - Last Filed: 10/20/17 15:53> - Physical Exam Vital Signs Temp Pulse Resp BP Pulse Ox 98.8 F 62 16 124/45 H 94 10/20/17 11:50 10/20/17 11:50 10/20/17 11:50 10/20/17 11:50 10/20/17 11:50 Oxygen Delivery Method Room Air Weight: 60.3 kg Body Mass Index (BMI) 25.9 Intake and Output for Last 24 Hours 10/18/17 10/19/17 10/20/17 23:59 23:59 23:59 Intake Total 30 / 30 657.5 / 657.5 410.8 / 410.8 Output Total 1200 / 1200 500 / 500 Balance 30 / 30 -542.5 / -542.5 -89.2 / -89.2 Laboratory Tests Past 24 Hrs 10/19/17 10/20/17 10/20/17 22:48 05:10 05:10 WBC 7.1 RBC 3.83 L Hgb 12.2 Hct 37.9 MCV 99.0 MCH 31.9 MCHC 32.2 RDW 15.8 H RDW Differential 56.2 H Plt Count 361 MPV 9.1 Immature Gran % (Auto) 0.300 Neut % (Auto) 76.9 H Lymph % (Auto) 12.6 L Butler % (Auto) 8.6 Eos % (Auto) 1.3 Baso % (Auto) 0.3 Absolute Neuts (auto) 5.5 Absolute Lymphs (auto) 0.90 Total Counted Not Reportable PT INR APTT 47.5 H Sodium 147 H Potassium 3.4 L Chloride 105 Carbon Dioxide 34.0 H Anion Gap 8 BUN 14 Creatinine 0.51 L Estim Creat Clear Calc 32.77 Est GFR (MDRD) Af Amer 150 Est GFR (MDRD) Non-Af 124 BUN/Creatinine Ratio 27.6 H Glucose 104 Calcium 8.3 L 10/20/17 10/20/17 05:10 11:45 WBC RBC Hgb Hct MCV MCH MCHC RDW RDW Differential Plt Count MPV Immature Gran % (Auto) Neut % (Auto) Lymph % (Auto) Butler % (Auto) Eos % (Auto) Baso % (Auto) Absolute Neuts (auto) Absolute Lymphs (auto) Total Counted PT 15.7 H INR 1.3 APTT 82.7 H 60.1 H Sodium Potassium Chloride Carbon Dioxide Anion Gap BUN Creatinine Estim Creat Clear Calc Est GFR (MDRD) Af Amer Est GFR (MDRD) Non-Af BUN/Creatinine Ratio Glucose Calcium Assessment/Plan This patient was seen in conjunction with Troy Montilla PA-C . I have independently interviewed and examined the patient and reviewed pertinent historical, laboratory, and other data. Please refer to Troy Montilla PA-C note for details of this patient's presentation, findings, and recommendations. I have reviewed Troy Montilla PA-C note and concur with documented findings. In brief, patient is a 77-year-old lady who was brought to the emergency department with confusion, lightheadedness imaging studies demonstrated features consistent with embolic CVA patient has history of mechanical valve however his INR was subtherapeutic on admission Physical Examination: GENERAL: Flat affect HEENT: Clear conjunctiva, NECK; supple, normal thyroid, CHEST: Diminished to auscultation bilaterally, HEART: Regular S1 S2, no audible murmurs ABDOMEN: soft, non-tender, normoactive bowel sounds, CANCER PROGRAM DIRECTOR: Awake; Assessment: 1. Acute embolic stroke 2. Acute end STEMI 3. Severe protein calorie malnutrition 4. Mechanical mitral valve with [employer] Dakota's 5. Chronic systolic heart failure with an ejection fraction of 15% 6. Ischemic cardiomyopathy 7. Hypokalemia 8. Chronic A. fib 9. Physical Debility Recommendations: 1. I have discussed the results of my overview and impressions with the patient 2. Options for management were reviewed Code Visit Inpatient E&M: [id number] [facility] L3
[2017-10-20] MEDS: Furosemide 20 MG Tablet PO (17:34)
[2017-10-20] MEDS: Heparin Injection (Vial) 5,000 UNIT/ML VIAL IV (21:56)
[2017-10-21] VITALS (11 sets, daily range): BP systolic 118–165; BP diastolic 49–74; PULSE 63–83; RESP 16–20; TEMP 36.6–37.1; O2SAT 92–96; BMI 25.9
[2017-10-21 05:26] LABS: Absolute Lymphocyte Count 0.83 X10^3/ul (0.83-4.51); Absolute Neutrophil Count 4.3 X10^3/uL (2.0-7.7); Basophil# 0.03 X10^3/uL; Basophil% 0.5 % (0-1); Eosinophil# 0.15 X10^3/uL; Eosinophils% 2.5 % (0-5); Hematocrit 36.4 % (37-47); Hemoglobin 11.7 g/dl (12.0-15.0); Lymphocyte # 0.83 X10^3/ul (4.0); Lymphocyte % 14.1 % (19-41); Mean Corp Hgb Conc 32.1 g/gl (32-36); Mean Corpuscular Hgb 32.1 pg (27.0-32.0); Mean Corpuscular Volume 99.7 fL (81-99); Mean Platelet Vol. 9.3 fl (6.2-12.0); Monocyte% 10.2 % (0-10); Neutrophil # 4.28 X10^3/uL (2.7-7.7); Neutrophil % 72.5 % (47-70); Platelet Count 363 K/mm3 (150-450); RBC Distribution Width CV 15.9 % (11.6-14.6); RBC Distribution Width SD 56.5 fl (35.1-43.9); Red Blood Count 3.65 M/mm3 (4.2-5.4); White Blood Count 5.9 K/mm3 (4.4-11.0)
[2017-10-21 05:28] LABS: POSITIVE COUNT NO; POSITIVE DIFFERENTIAL NO; POSITIVE MORPHOLOGY NO
[2017-10-21 05:33] LABS: Anion Gap 5 (5-15); BUN 15 mg/dL (7-18); BUN/Creat Ratio 36.2 RATIO (10-20); Calcium,Total 8.2 mg/dL (8.5-10.1); Chloride 108 mmol/L (98-107); Creatinine, Serum 0.41 mg/dL (0.55-1.02); EST Glomerular Filtration Rate 157 mL/min (>60); Est Glom Filt Rate - Afr Amer 190 mL/min (>60); Estimated Creatinine Clearance 32.77 ml/min; Glucose 100 mg/dL (74-106); Potassium 3.7 mmol/L (3.5-5.1); Sodium Level 148 mmol/L (136-145)
[2017-10-21 05:37] LABS: International Normalized Ratio 1.5; Prothrombin Time (Protime)PT. 18.5 SECONDS (11.7-14.9)
[2017-10-21 05:38] LABS: Partial Thromboplast Time 72.2 Seconds (24.1-36.2)
--- NOTE | 2017-10-21 07:56 | PN.CARD_ITS ---
Subjectve: Patient seen and evaluated. No obvious voice complaints Objective: Vital Signs Temp Pulse Resp BP Pulse Ox 98 F 75 20 H 153/69 H 94 10/21/17 07:21 10/21/17 07:21 10/21/17 07:21 10/21/17 07:21 10/21/17 07:21 Oxygen Delivery Method Room Air Weight: 318 lb 2.032 oz Body Mass Index (BMI) 25.9 Intake and Output for Last 24 Hours 10/19/17 10/20/17 10/21/17 23:59 23:59 23:59 Intake Total 657.5 / 657.5 550.8 / 550.8 Output Total 1200 / 1200 1200 / 1200 Balance -542.5 / -542.5 -649.2 / -649.2 General: Awake, Alert, Ill Appearing HEENT: PERRL, EOMI, Sclera Non Icteric Neck: Supple, Good ROM, No Lymph Node Enlargement Lungs: Clear to auscultation Cardiovascular: Regular Rhythm, Normal S1, Normal S2, No Murmurs, No Rubs, No Gallops Vascular: No Carotid Bruits, Normal Femoral Pulses, Normal Radial Pulses, Normal Dorsalis Pedal Pulse, Normal Posterior Tibial Pulses Abdomen: Bowel Sounds Present, Soft, Non Tender, No HSM, No Organomegaly Extremities: No Cyanosis, No Clubbing, No edema Neurological: No Focal Motor or Sensory Deficit 10/20/17 11:45: APTT 60.1 H 10/20/17 19:43: APTT 53.0 H 10/21/17 05:00: WBC 5.9, RBC 3.65 L, Hgb 11.7 L, Hct 36.4 L, MCV 99.7 H, MCH 32.1 H, MCHC 32.1, RDW 15.9 H, RDW Differential 56.5 H, Plt Count 363, MPV 9.3, Immature Gran % (Auto) 0.200, Neut % (Auto) 72.5 H, Lymph % (Auto) 14.1 L, [place] % (Auto) 10.2 H, Eos % (Auto) 2.5, Baso % (Auto) 0.5, Absolute Neuts (auto) 4.3 , Total Counted Not Reportable 10/21/17 05:00: PT 18.5 H, INR 1.5, APTT 72.2 H 10/21/17 05:00: Sodium 148 H, Potassium 3.7, Chloride 108 H, Carbon Dioxide 35.0 H, Anion Gap 5, BUN 15, Creatinine 0.41 L, Est GFR (MDRD) Af Amer 190, Est GFR (MDRD) Non-Af 157, BUN/Creatinine Ratio 36.2 H, Glucose 100, Calcium 8.2 L Rhythm: EKG: ECHO: Stress Test: Cardiac Cath: PCI: CT Surgery: Holter monitor: EPS: PPM: CXR: Chest CT Scan: Medical Necessity - Tobacco Use Smoking Status: Never smoker Assessment/Plan 1. Abnormal cardiac enzymes. Patient is noted to have mildly abnormal cardiac enzymes. The significance of the above is not entirely clear. She does not have any obstructive coronary disease that has been documented recently. She does have significant left ventricular systolic dysfunction and it is likely and possible that some of the cardiac enzyme abnormality is secondary to this. * At this juncture I would not suggest any further workup workup as it is likely demand in character. In addition I do not think that she is a candidate for any invasive therapy. * 2. Chronic congestive heart failure-systolic She does have a history of systolic heart failure which appears to be chronic. On this particular admission she does not appear to have a recurrence of the above. The plan will be for her to continue her current medications with the beta-lili as well as the [place] inhibitor. She recently had an echocardiogram which characterized her ejection fraction is approximately 25-30%, biatrial enlargement was noted and moderate pulmonary hypertension was present. It was not significantly changed compared to the one previously. 3. Cardiomyopathy. She does have a history of nonischemic cardiomyopathy. Ideally she should be a candidate for an implantable defibrillator. I would however leave this decision to Dr. Harjit Harrison her primary MD for outpatient follow-up and a further discussion regarding the above. Her frailty index however appears to be rather high and I am not sure that she has a long-term prognosis which may warrant to the above. 4. Status post mechanical mitral valve replacement She continues to do well with the above. She will remain anticoagulated per [place] heart prophylaxis as well as antibiotic prophylaxis. The plan is to keep her INR between 2.5 and 3.5. She has a [address] Dakota's mechanical mitral valve replacement. 5. Status post tricuspid annuloplasty. She does have a tricuspid annuloplasty ring which appears to be functioning well. No changes will be made. She still has moderate pulmonary hypertension as at her last echocardiogram. 6. Permanent atrial fibrillation She does have a history of permanent atrial fibrillation and remain on anticoagulation her ventricular response rate is well controlled at 74 on her electrocardiogram. * Her medications have been reviewed and no changes will be made. * 7. Frailty. She would appear to have a high frailty index which may have repercussions on any further tests that may need to be performed. At this time with her multiple medical problems I would recommend that some point a discussion be undertaken regarding her future medical expectations. Thank you for allowing me to participate in the care of your patient. Please don't hesitate to call if any issues arise
--- NOTE | 2017-10-21 08:53 | CASEMGMT ---
Social Work Phone call received from pt son Tariq. Family would like pt to go to [facility] upon d/c. Phone call to Yumiko at [facility] and they do have beds available. Referral faxed. Will await determination if they can accept. LUIS Cox
[2017-10-21] MEDS: Furosemide 20 MG Tablet PO (11:08)
[2017-10-21] MEDS: Aspirin 81 MG TAB.CHEW PO (11:08)
[2017-10-21] MEDS: Lisinopril 2.5 MG Tablet PO (11:08)
[2017-10-21] MEDS: Metoprolol Tartrate 25 MG Tablet 12.5 MG PO (11:08)
[2017-10-21] MEDS: Spironolactone 25 MG Tablet PO (11:08)
[2017-10-21 11:42] LABS: Partial Thromboplast Time 77.5 Seconds (24.1-36.2)
--- NOTE | 2017-10-21 12:32 | PCM.TXEXTCAR ---
- Diet 10/19/17 06:04 Diet: Cardiac/Low Cholesterol Is pt able to select menu?: Yes - Routine Orders/Code Status Suppository Type: Dulcolax 10mg Suppository Frequency: Daily PRN Routine Lab Work: CBC - tomorrow, BMP - tomorrow, INR - daily Code Status: Full Code - Wound(s) right upper arm Wound Type: humerus fracture - Therapies Physical Therapy: Eval and Treat Occupational Therapy: Eval and Treat Speech Therapy: Eval and Treat - Problem/Diagnosis (1) Embolic stroke Status: Acute Current Visit: Yes (2) H/O mitral valve replacement with mechanical valve Status: Chronic Comment: 27mm [employer] [place] mechanical mitral valve replacement, tricuspid valve repair using 30mm Carrpenter- Edwars annuloplasty ring, Left atria; appendage exclusion 04/11/04 @ [facility] Dr. Addison Montague Current Visit: No (3) Hypertension Status: Chronic Current Visit: No (4) GERD (gastroesophageal reflux disease) Status: Chronic Current Visit: No (5) Atrial fibrillation Status: Chronic Current Visit: No (6) Cardiomyopathy Status: Chronic Current Visit: No (7) Hyperlipidemia Status: Chronic Current Visit: No (8) Anxiety and depression Status: Chronic Current Visit: No (9) Malnutrition Status: Chronic Current Visit: Yes - Allergies/Procedures Done in Hospital Allergies/Adverse Reactions: Allergies cortisone Allergy (Verified 08/29/17 10:09) Unknown Procedures: 2-D Echocardiogram - Type of Care/Length of Stay Estimated LOS: Convalescent Care Less Than 30 days Type of Care Needed: Skilled Rehab Potential: Fair Prognosis: Fair - Additional Orders/Day of Discharge Additional Orders: Continue Lovenox 1mg/kg BID along with warfarin daily with daily INR checks until warfarin becomes therapeutic - goal INR is 2.5-3.5. Day of Discharge: 10/21/17 - Dietary and Speech Recommendations Dietitian Recommendations/Changes: Suggest diet change to liberal carbohydrate-controlled, cardiac, low sodium with 1500 ml fluid restriction. Continue ensure enlive on medpass as tolerated. Speech to evaluate swallow as needed. Speech Linguistic Eval Summary: The patient is a 77 year old female w/ h/o chronic systolic heart failure, CAD, depression, h/o mitral valve replacement with mechanical valve, cirrhosis, HTN, afib, DMII, and tricuspid valve repair, and lipidemia admitted for slurred speech. Family reports speech is slurred inconsistently. Notable word-finding deficits observed. No overt oral motor weakness but mild slurring of speech noted when pt spoke at sentence level. Memory deficits include inability to recall details of today's events and even current living situation. Speech therapy is recommended to address speech and language deficits. - Follow Up Care Primary Care Physician: Warren Mendoza MD [Primary Care Provider] - Please follow up with your Primary Care Physician in: 2 weeks Please Follow Up With: Harjit Harrison MD When: 2 weeks
--- NOTE | 2017-10-21 13:16 | CASEMGMT ---
Addendum entered by Liz Diaz 10/21/17 16:52: Insurance preauth obtained. Pt ready for d/c and can go to [facility] today. Pt, and son Tariq notified and agreeable. Transportation arranged with [facility] for 6:00 ambulance bean picker. Nurse, family and [employer] notified. Orders to be faxed. [id number] completed. No further needs. LUIS Cox Original Note: Social Work Call from Yumiko at [facility] and they are able to accept pt. Insurance preauth to be started. Phone call to pt jovany Potter and informed. SW will follow for SNF placement. Plan: [facility], pending insurance precert LUIS Cox
--- NOTE | 2017-10-21 15:19 | PCM.DC.SUM ---
<Troy Montilla - Last Filed: 10/21/17 15:38> Discharge Date and Diagnosis - Problem List Patient Problems: Active and Suspected Problems (Last Reviewed 10/19/17 @ 02:25 by Baltazar Arizmendi MD) Embolic stroke (Acute) Slurred speech (Acute) Heart failure (Acute) Elevated troponin (Acute) Date of Admission: 10/18/17 Date of Discharge: 10/21/17 - Primary Discharge Diagnosis Active and Suspected Problems (Last Reviewed 10/19/17 @ 02:25 by Baltazar Arizmendi MD) Embolic stroke (Acute) 2/2 subtherapeutic INR, right occipital, left temporal, left thalamic NSTEMI type 2 Severe protein malnutrition Permanent AF Mechanical AV Chronic Systolic CHF pulmonary htn Hypokalemia resolved - Secondary Discharge Diagnosis Chronic Problems (Last Reviewed 10/19/17 @ 02:25 by Baltazar Arizmendi MD) Malnutrition (Chronic) Chronic systolic congestive heart failure (Chronic) Atherosclerotic heart disease of [place] coronary artery without angina pectoris (Chronic) Depression (Chronic) Anxiety (Chronic) 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 mechanical mitral valve replacement, tricuspid valve repair using 30mm Carrpenter- Edwars annuloplasty ring, Left atria; appendage exclusion 04/11/04 @ [facility] Dr. Addison Montague Cirrhosis (Chronic) Hypertension (Chronic) GERD (gastroesophageal reflux disease) (Chronic) Atrial fibrillation (Chronic) Diabetes mellitus (Chronic) Cardiomyopathy (Chronic) H/O tricuspid valve repair (Chronic) 27mm [place] mechanical mitral valve replacement, tricuspid valve repair using 30mm Carrpenter- Edwars annuloplasty ring, Left atria; appendage exclusion 04/11/04 @ [facility] Dr. Addison Montague Hyperlipidemia (Chronic) Anxiety and depression (Chronic) Hospital Course and Treatment Imaging Results: CT/Brain/Head without Contrast IMPRESSION: 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 Stable chronic ischemic and atrophic changes. No acute intracranial abnormality. RAD/Chest 1 View IMPRESSION: Cardiomegaly with moderate pulmonary vascular congestion and small bilateral pleural effusions. Echo: Interpretation Summary Normal LV size. The left atrium is severely enlarged. The right atrium is severely enlarged. Stable appearing mechanical mitral valve apparatus. An annuloplasty ring is noted in the tricuspid position. Pulmonary artery systolic pressure is 37 mmHg. Comp[ared to the previous the LV function is improved and the pulmonary pressures better The estimated ejection fraction is 25-30 %. CT/CTA Head W/WO Contrast IMPRESSION: No aneurysmal dilatation or high-grade stenosis. Hypoplastic or absent right A1 segment of the anterior cerebral artery. origin of the left posterior cerebral artery. CT/CTA Neck W/WO Contrast IMPRESSION: No hemodynamically significant stenosis of the internal carotid arteries. MRI/Brain without Contrast IMPRESSION: Acute left temporal and thalamic infarcts. Acute right occipital infarct. Consider embolic etiologies. Consults: Munir - cardiology Operations: None Procedures: 2-D Echocardiogram Summary of Care Provided: Physical exam on day of discharge: General: Resting comfortably NAD Psych: A/Ox3 normal affect HEENT: [place] AT NC Neck: Supple NT CV: RRR no m/t/r/g/h Resp: CTA Abd: [id number] Soft NT no guarding or rigidity Ext: DP2+= no edema Skin: W/D normal turgor Lymph/Heme: No active bleeding or adenopathy Neuro: CN2-12 intact Hospital course: The patient is a 77 year old F with a hx of mechanical [place] mitral valve, systolic CHF, nonischemic cardiomyopathy patient of Dr. Harrison permanent AF, htn, malnutrition, who presented to the ER with slurred speech, and was found to have low INR (goal 2.5-3.5), elevated troponin, no EKG changes, negative CT of the brain. She was admitted to the PCU with concerns for acute stroke as she has a hx of permanent AF, a mechanical mitral valve and her INR was not therapeutic. Cardiology was consulted and they did not recommend any further intervention for her nstemi, as they felt it was demand induced. She underwent MRI brain, CTA head and neck, she was found to have embolic stroke in multiple areas (see report above) We placed her on a heparin drip to bridge warfarin. Echo was obtained and showed EF of 25%. She will need to follow up with Dr. Harrison to have outpatient evaluation to see if she is a candidate for a defibrillator. She continued to have significant aphasia and was very weak. Hospice was consulted, and they are considering pursuing hospice at the SNF after discharge. She did have some improvement in her speech prior to DC. She was discharged to SNF. She will continue warfarin and lovenox sq bridge at the SNF until warfarin is therapeutic. She was discharged in stable condition. This patient was seen by Troy Montilla PA-C under the supervision of Dr. Velez. [] Discharge Diet: Low fat/ Low Cholesterol, 2000 mg Sodium Diet Discharge Activity: Return to Normal Activity Home Medications: Medications to take at Discharge lisinopril 2.5 mg tablet 2.5 mg PO DAILY #90 tab 08/01/17 metoprolol tartrate 25 mg tablet 12.5 mg PO BID #90 tab 08/01/17 nitroglycerin 0.4 mg sublingual tablet 0.4 mg SUBLINGUAL Q5M PRN #25 tab 08/01/17 potassium chloride ER 20 mEq tablet,extended release(part/cryst) 20 meq PO DAILY #90 tab 08/01/17 spironolactone 25 mg tablet 25 mg PO DAILY #90 tab 08/01/17 Acetaminophen [Tylenol] 500 mg PO Q6H PRN PRN tablet 10/21/17 Aspirin [Aspirin, Baby] 81 mg PO DAILY@0800 tab.chew 10/21/17 Enoxaparin Sodium [Lovenox] 60 mg SQ BID #1 vial 10/21/17 Ensure Clear 120 ml PO TIDCM liquid 10/21/17 Furosemide [Lasix] 20 mg PO BID@1000,1800 tablet 10/21/17 Warfarin [Coumadin] 5 mg PO DAILY@1700 tablet 10/21/17 Following Prescrptions Were Given to Patient: Enoxaparin Sodium [Lovenox] 60 mg SQ BID #1 vial Primary Care Physician: Warren Mendoza MD [Primary Care Provider] - Please follow up with your Primary Care Physician in: 2 weeks Please Follow Up With: Harjit Harrison MD When: 2 weeks Disposition: Snf facility Minutes spent on discharge:: 35 Patient Condition:: Stable Medical Necessity - Tobacco Use Smoking Status: Never smoker Meaningful Use Info Meaningful Use Diagnoses (Choose all that apply): Ischemic CVA - CVA Therapy Assessed for PT,OT and/or ST?: Yes - Ischemic Stroke Antithrombotic order at d/c?: Yes Dx of Atrial fib/flutter?: Yes Anticoagulant at discharge?: Yes Statins at discharge?: Yes Primary Dx Acute Ischemic CVA?: Yes IV tPA ordered during stay?: No Reason IV t-PA not ordered: Procedure not Indicated <Addison Velez - Last Filed: 10/21/17 16:16> Discharge Date and Diagnosis - Primary Discharge Diagnosis Active and Suspected Problems (Last Reviewed 10/19/17 @ 02:25 by Baltazar Arizmendi MD) Embolic stroke (Acute) Slurred speech (Acute) Heart failure (Acute) Elevated troponin (Acute) - Secondary Discharge Diagnosis Chronic Problems (Last Reviewed 10/19/17 @ 02:25 by Baltazar Arizmendi MD) Malnutrition (Chronic) Chronic systolic congestive heart failure (Chronic) Atherosclerotic heart disease of [place] coronary artery without angina pectoris (Chronic) Depression (Chronic) Anxiety (Chronic) 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 mechanical mitral valve replacement, tricuspid valve repair using 30mm Carrpenter- Edwars annuloplasty ring, Left atria; appendage exclusion 04/11/04 @ [facility] Dr. Addison Montague Cirrhosis (Chronic) Hypertension (Chronic) GERD (gastroesophageal reflux disease) (Chronic) Atrial fibrillation (Chronic) Diabetes mellitus (Chronic) Cardiomyopathy (Chronic) H/O tricuspid valve repair (Chronic) 27mm [place] mechanical mitral valve replacement, tricuspid valve repair using 30mm Carrpenter- Edwars annuloplasty ring, Left atria; appendage exclusion 04/11/04 @ [facility] Dr. Addison Montague Hyperlipidemia (Chronic) Anxiety and depression (Chronic) Hospital Course and Treatment Summary of Care Provided: This patient was seen in conjunction with Troy Montilla PA-C . I have independently interviewed and examined the patient and reviewed pertinent historical, laboratory, and other data. Please refer to Troy Montilla PA-C note for details of this patient's presentation, findings, and recommendations. I have reviewed Troy Montilla PA-C note and concur with documented findings. In brief, patient is a 77-year-old lady who was brought to the emergency department with confusion, lightheadedness imaging studies demonstrated features consistent with embolic CVA patient has history of mechanical valve however his INR was subtherapeutic on admission Assessment: 1. Acute embolic stroke 2. Acute end STEMI 3. Severe protein calorie malnutrition 4. Mechanical mitral valve with St[place]'s 5. Chronic systolic heart failure with an ejection fraction of 15% 6. Ischemic cardiomyopathy 7. Hypokalemia 8. Chronic A. fib 9. Physical Debility Hospital course: As elicited above by Troy Montilla PA-C Time spent on discharge: 35 minute Code Visit Inpatient E&M: 59098 Disch Hosp
--- NOTE | 2017-10-21 15:26 | DS.PCM_ITS ---
<Troy Montilla - Last Filed: 10/21/17 15:38> Discharge Date and Diagnosis - Problem List Patient Problems: Active and Suspected Problems (Last Reviewed 10/19/17 @ 02:25 by Baltazar Arizmendi MD) Embolic stroke (Acute) Slurred speech (Acute) Heart failure (Acute) Elevated troponin (Acute) Date of Admission: 10/18/17 Date of Discharge: 10/21/17 - Primary Discharge Diagnosis Active and Suspected Problems (Last Reviewed 10/19/17 @ 02:25 by Baltazar Arizmendi MD) Embolic stroke (Acute) 2/2 subtherapeutic INR, right occipital, left temporal, left thalamic NSTEMI type 2 Severe protein malnutrition Permanent AF Mechanical AV Chronic Systolic CHF pulmonary htn Hypokalemia resolved - Secondary Discharge Diagnosis Chronic Problems (Last Reviewed 10/19/17 @ 02:25 by Baltazar Arizmendi MD) Malnutrition (Chronic) Chronic systolic congestive heart failure (Chronic) Atherosclerotic heart disease of [place] coronary artery without angina pectoris (Chronic) Depression (Chronic) Anxiety (Chronic) 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 mechanical mitral valve replacement, tricuspid valve repair using 30mm Carrpenter- Edwars annuloplasty ring, Left atria; appendage exclusion 04/11/04 @ [facility] Dr. Addison Montague Cirrhosis (Chronic) Hypertension (Chronic) GERD (gastroesophageal reflux disease) (Chronic) Atrial fibrillation (Chronic) Diabetes mellitus (Chronic) Cardiomyopathy (Chronic) H/O tricuspid valve repair (Chronic) 27mm [place] mechanical mitral valve replacement, tricuspid valve repair using 30mm Carrpenter- Edwars annuloplasty ring, Left atria; appendage exclusion 04/11/04 @ [facility] Dr. Addison Montague Hyperlipidemia (Chronic) Anxiety and depression (Chronic) Hospital Course and Treatment Imaging Results: CT/Brain/Head without Contrast IMPRESSION: 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 Stable chronic ischemic and atrophic changes. No acute intracranial abnormality. RAD/Chest 1 View IMPRESSION: Cardiomegaly with moderate pulmonary vascular congestion and small bilateral pleural effusions. Echo: Interpretation Summary Normal LV size. The left atrium is severely enlarged. The right atrium is severely enlarged. Stable appearing mechanical mitral valve apparatus. An annuloplasty ring is noted in the tricuspid position. Pulmonary artery systolic pressure is 37 mmHg. Comp[ared to the previous the LV function is improved and the pulmonary pressures better The estimated ejection fraction is 25-30 %. CT/CTA Head W/WO Contrast IMPRESSION: No aneurysmal dilatation or high-grade stenosis. Hypoplastic or absent right A1 segment of the anterior cerebral artery. origin of the left posterior cerebral artery. CT/CTA Neck W/WO Contrast IMPRESSION: No hemodynamically significant stenosis of the internal carotid arteries. MRI/Brain without Contrast IMPRESSION: Acute left temporal and thalamic infarcts. Acute right occipital infarct. Consider embolic etiologies. Consults: Munir - cardiology Operations: None Procedures: 2-D Echocardiogram Summary of Care Provided: Physical exam on day of discharge: General: Resting comfortably NAD Psych: A/Ox3 normal affect HEENT: [place] AT NC Neck: Supple NT CV: RRR no m/t/r/g/h Resp: CTA Abd: [id number] Soft NT no guarding or rigidity Ext: DP2+= no edema Skin: W/D normal turgor Lymph/Heme: No active bleeding or adenopathy Neuro: CN2-12 intact Hospital course: The patient is a 77 year old F with a hx of mechanical [place] mitral valve, systolic CHF, nonischemic cardiomyopathy patient of Dr. Harrison permanent AF, htn, malnutrition, who presented to the ER with slurred speech, and was found to have low INR (goal 2.5-3.5), elevated troponin, no EKG changes, negative CT of the brain. She was admitted to the PCU with concerns for acute stroke as she has a hx of permanent AF, a mechanical mitral valve and her INR was not therapeutic. Cardiology was consulted and they did not recommend any further intervention for her nstemi, as they felt it was demand induced. She underwent MRI brain, CTA head and neck, she was found to have embolic stroke in multiple areas (see report above) We placed her on a heparin drip to bridge warfarin. Echo was obtained and showed EF of 25%. She will need to follow up with Dr. Harrison to have outpatient evaluation to see if she is a candidate for a defibrillator. She continued to have significant aphasia and was very weak. Hospice was consulted, and they are considering pursuing hospice at the SNF after discharge. She did have some improvement in her speech prior to DC. She was discharged to SNF. She will continue warfarin and lovenox sq bridge at the SNF until warfarin is therapeutic. She was discharged in stable condition. This patient was seen by Troy Montilla PA-C under the supervision of Dr. Velez. [] Discharge Diet: Low fat/ Low Cholesterol, 2000 mg Sodium Diet Discharge Activity: Return to Normal Activity Home Medications: Medications to take at Discharge lisinopril 2.5 mg tablet 2.5 mg PO DAILY #90 tab 08/01/17 metoprolol tartrate 25 mg tablet 12.5 mg PO BID #90 tab 08/01/17 nitroglycerin 0.4 mg sublingual tablet 0.4 mg SUBLINGUAL Q5M PRN #25 tab potassium chloride ER 20 mEq tablet,extended release(part/cryst) 20 meq PO DAILY #90 tab 08/01/17 spironolactone 25 mg tablet 25 mg PO DAILY #90 tab 08/01/17 Acetaminophen [Tylenol] 500 mg PO Q6H PRN PRN tablet 10/21/17 Aspirin [Aspirin, Baby] 81 mg PO DAILY@0800 tab.chew 10/21/17 Enoxaparin Sodium [Lovenox] 60 mg SQ BID #1 vial 10/21/17 Ensure Clear 120 ml PO TIDCM liquid 10/21/17 Furosemide [Lasix] 20 mg PO BID@1000,1800 tablet 10/21/17 Warfarin [Coumadin] 5 mg PO DAILY@1700 tablet 10/21/17 Following Prescrptions Were Given to Patient: Enoxaparin Sodium [Lovenox] 60 mg SQ BID #1 vial Primary Care Physician: Warren Mendoza MD [Primary Care Provider] - Please follow up with your Primary Care Physician in: 2 weeks Please Follow Up With: Harjit Harrison MD When: 2 weeks Disposition: Prison facility Minutes spent on discharge:: 35 Patient Condition:: Stable Medical Necessity - Tobacco Use Smoking Status: Never smoker Meaningful Use Info Meaningful Use Diagnoses (Choose all that apply): Ischemic CVA - CVA Therapy Assessed for PT,OT and/or ST?: Yes - Ischemic Stroke Antithrombotic order at d/c?: Yes Dx of Atrial fib/flutter?: Yes Anticoagulant at discharge?: Yes Statins at discharge?: Yes Primary Dx Acute Ischemic CVA?: Yes IV tPA ordered during stay?: No Reason IV t-PA not ordered: Procedure not Indicated <Addison Velez - Last Filed: 10/21/17 16:16> Discharge Date and Diagnosis - Primary Discharge Diagnosis Active and Suspected Problems (Last Reviewed 10/19/17 @ 02:25 by Baltazar Arizmendi MD) Embolic stroke (Acute) Slurred speech (Acute) Heart failure (Acute) Elevated troponin (Acute) - Secondary Discharge Diagnosis Chronic Problems (Last Reviewed 10/19/17 @ 02:25 by Baltazar Arizmendi MD) Malnutrition (Chronic) Chronic systolic congestive heart failure (Chronic) Atherosclerotic heart disease of [place] coronary artery without angina pectoris (Chronic) Depression (Chronic) Anxiety (Chronic) 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 mechanical mitral valve replacement, tricuspid valve repair using 30mm Carrpenter- [place]wars annuloplasty ring, Left atria; appendage exclusion 04/11/04 @ [facility] Dr. Addison Montague Cirrhosis (Chronic) Hypertension (Chronic) GERD (gastroesophageal reflux disease) (Chronic) Atrial fibrillation (Chronic) Diabetes mellitus (Chronic) Cardiomyopathy (Chronic) H/O tricuspid valve repair (Chronic) 27mm [place] mechanical mitral valve replacement, tricuspid valve repair using 30mm Carrpenter- Edwars annuloplasty ring, Left atria; appendage exclusion 04/11/04 @ [facility] Dr. Addison Montague Hyperlipidemia (Chronic) Anxiety and depression (Chronic) Hospital Course and Treatment Summary of Care Provided: This patient was seen in conjunction with Troy Montilla PA-C . I have independently interviewed and examined the patient and reviewed pertinent historical, laboratory, and other data. Please refer to Troy Montilla PA-C note for details of this patient's presentation, findings, and recommendations. I have reviewed Troy Montilla PA-C note and concur with documented findings. In brief, patient is a 77-year-old lady who was brought to the emergency department with confusion, lightheadedness imaging studies demonstrated features consistent with embolic CVA patient has history of mechanical valve however his INR was subtherapeutic on admission Assessment: 1. Acute embolic stroke 2. Acute end STEMI 3. Severe protein calorie malnutrition 4. Mechanical mitral valve with [place]'s 5. Chronic systolic heart failure with an ejection fraction of 15% 6. Ischemic cardiomyopathy 7. Hypokalemia 8. Chronic A. fib 9. Physical Debility Hospital course: As elicited above by Troy Montilla PA-C Time spent on discharge: 35 minute Code Visit Inpatient E&M: 14622 Disch Hosp
--- NOTE | 2017-10-21 16:59 | NURSING ---
Called report to [facility]ando Run to LENORE Orozco at this time.
== END 2017-10-21 18:03 | disposition skilled nursing facility (03) | DRG 64 ==
LOC: ED 17:38 → PCU 20:16
PROVIDERS: Physician Assistant; Admitting Provider Internal Medicine; Emergency Provider Emergency Medicine; Family Provider Family Medicine; PCP Family Medicine; Visit Provider Internal Medicine
DX: I63.40 Cerebral infarction due to embolism of unspecified cerebral artery (principal); I50.23 Acute on chronic systolic (congestive) heart failure; E43 Unspecified severe protein-calorie malnutrition; I21.A1 Myocardial infarction type 2; R47.01 Aphasia; I11.0 Hypertensive heart disease with heart failure; I25.10 Atherosclerotic heart disease of native coronary artery without angina pectoris; K74.60 Unspecified cirrhosis of liver; R29.705 NIHSS score 5; I27.20 Pulmonary hypertension, unspecified; E87.6 Hypokalemia; Z68.25 Body mass index [BMI] 25.0-25.9, adult; I48.2 Chronic atrial fibrillation; Z95.2 Presence of prosthetic heart valve; F41.9 Anxiety disorder, unspecified; F32.9 Major depressive disorder, single episode, unspecified; K21.9 Gastro-esophageal reflux disease without esophagitis; E11.9 Type 2 diabetes mellitus without complications; E78.5 Hyperlipidemia, unspecified; Z79.01 Long term (current) use of anticoagulants
CPT/HCPCS: 36415; 70450; 70496; 70498; 70551; 71045; 80048; 80053; 80061; 82962; 83880; 84443; 84484; 85025; 85027; 85610; 85730; 92507; 92523; 93005; 93306; 97110; 97162; 97166; 97535; 97802; 99251; 99284; Q9967; A4216; G0463; J1940

== ENCOUNTER → 2017-12-11 13:53 | Outpatient (CLI) | payer MEDICARE, SELFPAY ==
[2017-12-11 17:18] LABS: Prothrombin Time (Protime)PT. 42.4 SECONDS (11.7-14.9)
[2017-12-11 18:21] LABS: International Normalized Ratio 4.4
== END ==
PROVIDERS: Family Provider Family Medicine; PCP Family Medicine; Visit Provider Internal Medicine Cardiovascular Disease
DX: Z95.2 Presence of prosthetic heart valve (principal); Z79.01 Long term (current) use of anticoagulants
CPT/HCPCS: 36415; 85610

== ENCOUNTER → 2017-12-15 14:44 | Outpatient (CLI) | payer MEDICARE, SELFPAY ==
[2017-12-15 16:34] LABS: Prothrombin Time (Protime)PT. 46.7 SECONDS (11.7-14.9)
== END ==
PROVIDERS: Family Provider Family Medicine; PCP Family Medicine; Visit Provider Internal Medicine Cardiovascular Disease
DX: Z95.2 Presence of prosthetic heart valve (principal); Z79.01 Long term (current) use of anticoagulants
CPT/HCPCS: 36415; 85610

== ENCOUNTER 2017-12-26 13:54 | Outpatient (RCR) | payer MEDICARE, SELFPAY ==
[2017-12-18 11:28] LABS: International Normalized Ratio 2.2; Prothrombin Time (Protime)PT. 24.5 SECONDS (11.7-14.9)
== END 2017-12-26 15:00 | disposition home or self-care (01) ==
LOC: LAB 13:54
PROVIDERS: Family Provider Family Medicine; PCP Family Medicine; Visit Provider Internal Medicine Cardiovascular Disease
DX: I48.91 Unspecified atrial fibrillation (principal); Z79.01 Long term (current) use of anticoagulants; Z95.2 Presence of prosthetic heart valve; Z98.890 Other specified postprocedural states
CPT/HCPCS: 36415; 36416; 85610

== ENCOUNTER → 2018-01-29 12:05 | Outpatient (CLI) | payer MEDICARE, SELFPAY ==
[2018-01-29 12:44] LABS: Hematocrit 38.2 % (37-47); Hemoglobin 11.9 g/dl (12.0-15.0); Mean Corp Hgb Conc 31.2 g/gl (32-36); Mean Corpuscular Hgb 30.2 pg (27.0-32.0); Mean Platelet Vol. 10.3 fl (6.2-12.0); Platelet Count 312 K/mm3 (150-450); RBC Distribution Width CV 15.5 % (11.6-14.6); RBC Distribution Width SD 54.7 fl (35.1-43.9); Red Blood Count 3.94 M/mm3 (4.2-5.4); Scan Indicated on CBC? Y/N NO
[2018-01-29 12:59] LABS: Prothrombin Time (Protime)PT. 22.6 SECONDS (11.7-14.9)
[2018-01-29 13:03] LABS: AST(SGOT) 28 U/L (15-37); Alanine Aminotransfer ALT/SGPT 21 U/L (13-56); Albumin, Serum 3.4 g/dL (3.2-5.0); Alkaline Phosphatase 72 U/L (45-117); Anion Gap 2 (5-15); BUN 12 mg/dL (7-18); BUN/Creat Ratio 17.8 RATIO (10-20); Calcium,Total 9.2 mg/dL (8.5-10.1); Chloride 104 mmol/L (98-107); Cholesterol 196 mg/dL (200); Creatinine, Serum 0.68 mg/dL (0.55-1.02); EST Glomerular Filtration Rate 89 mL/min (>60); Est Glom Filt Rate - Afr Amer 108 mL/min (>60); Globulin 3.3 g/dL (2.2-4.2); Glucose 77 mg/dL (74-106); High Density Lipoprotein 34 mg/dL; Potassium 4.6 mmol/L (3.5-5.1); Protein, Total 6.7 g/dL (6.4-8.2); Sodium Level 140 mmol/L (136-145); Triglycerides 391 mg/dL; Very Low Density Lipoprotein 78 mg/dL (5-40)
== END ==
PROVIDERS: Family Provider Family Medicine; PCP Family Medicine; Referring Provider Family Medicine; Visit Provider Family Medicine
DX: I48.91 Unspecified atrial fibrillation (principal); E78.00 Pure hypercholesterolemia, unspecified
CPT/HCPCS: 80053; 80061; 85027; 85610

== ENCOUNTER → 2018-04-20 15:52 | Outpatient (CLI) | payer MEDICARE, SELFPAY ==
[2018-04-20 16:20] LABS: Prothrombin Time (Protime)PT. 22.8 SECONDS (11.7-14.9)
== END ==
PROVIDERS: Family Provider Family Medicine; PCP Family Medicine; Referring Provider Family Medicine; Visit Provider Family Medicine
DX: I48.91 Unspecified atrial fibrillation (principal)
CPT/HCPCS: 85610

== ENCOUNTER → 2018-05-29 15:45 | Outpatient (CLI) | payer MEDICARE, SELFPAY ==
[2018-05-29 16:15] LABS: International Normalized Ratio 2.9; Prothrombin Time (Protime)PT. 30.5 SECONDS (11.7-14.9)
== END ==
PROVIDERS: Family Provider Family Medicine; PCP Family Medicine; Referring Provider Family Medicine; Visit Provider Family Medicine
DX: I48.91 Unspecified atrial fibrillation (principal)
CPT/HCPCS: 85610

== ENCOUNTER 2018-06-26 16:47 | Emergency (ER) | payer MEDICARE, MEDICAID, SELFPAY ==
[2018-06-26 16:47] VITALS: BP 164/86; PULSE 107; RESP 16; TEMP 36.6; O2SAT 99; BMI 24.1
--- NOTE | 2018-06-26 17:13 | ED.VISSUMM ---
- ER Visit Summary Date of Service: 06/26/18 Chief Complaint: Epistaxis History of Present Illness: The patient is a 78 F who presents with epistaxis that began today. Patient states bleeding initially was out of the left nares. Patient states that now her bleeding is out of both nares. Patient states that she applied pressure to her nose. Patient states that her bleeding is then going down the back of her throat. Patient denies any recent fevers or chills. Patient denies any nausea or vomiting. Patient denies any trauma or injury. Patient is on Coumadin because she has a mechanical heart valve. Physical Examination: Vital signs are stable except for mild tachycardia of 107 and a slightly elevated blood pressure 164/86. Patient is in no acute distress. Nasal mucosa shows epistaxis from bilateral nares, worse on the right. There is bleeding noted in the oropharynx. Heart was regular rate and rhythm. Lungs are clear and equal bilaterally. Cranial nerves II through XII are intact. There are no focal motor or sensory deficits noted. The remaining physical exam is within normal limits. Test Results: CBC was essentially within normal limits. There is no significant anemia. INR was 2.4. Basic metabolic profile was essentially within normal limits. Emergency Department Course and Treatment: The nares were packed with cotton ball soaked with Afrin and 4% lidocaine. Bleeding was controlled with this. There is some dried blood noted in the left anterior nasal septum. The left nares was packed with a 5.5 cm anterior rapid Rhino. Patient tolerated the procedure well. Patient was instructed to follow-up with her primary care physician in 2-3 days. Patient understood and was agreeable with the plan. All questions were answered. Disposition: Discharge home Impression: Epistaxis This note was generated with [employer] dictation software. It may contain incorrect words, spelling, and punctuation that were not noted in review of the chart prior to signing ED Disposition - Plan for ED Patient: Disposition: Home or Assisted Living Diagnosis: Epistaxis Instructions: Nosebleed Referrals: Warren Mendoza MD [Primary Care Provider] - 2 Days
[2018-06-26 17:28] LABS: Absolute Lymphocyte Count 1.38 X10^3/ul (0.83-4.51); Absolute Neutrophil Count 3.6 X10^3/uL (2.0-7.7); Basophil# 0.03 X10^3/uL; Basophil% 0.5 % (0-1); Eosinophil# 0.06 X10^3/uL; Hematocrit 34.9 % (37-47); Hemoglobin 11.4 g/dl (12.0-15.0); Lymphocyte # 1.38 X10^3/ul (4.0); Lymphocyte % 24.1 % (19-41); Mean Corp Hgb Conc 32.7 g/gl (32-36); Mean Corpuscular Hgb 32.2 pg (27.0-32.0); Mean Corpuscular Volume 98.6 fL (81-99); Mean Platelet Vol. 9.5 fl (6.2-12.0); Monocyte# 0.63 X10^3/uL; Neutrophil # 3.61 X10^3/uL (2.7-7.7); Neutrophil % 63.2 % (47-70); Platelet Count 295 K/mm3 (150-450); RBC Distribution Width CV 14.8 % (11.6-14.6); RBC Distribution Width SD 49.9 fl (35.1-43.9); Red Blood Count 3.54 M/mm3 (4.2-5.4); White Blood Count 5.7 K/mm3 (4.4-11.0)
[2018-06-26 17:29] LABS: POSITIVE COUNT NO; POSITIVE DIFFERENTIAL NO; POSITIVE MORPHOLOGY NO
[2018-06-26 17:35] LABS: International Normalized Ratio 2.4; Prothrombin Time (Protime)PT. 26.3 SECONDS (11.7-14.9)
[2018-06-26 17:40] LABS: Anion Gap 6 (5-15); BUN 18 mg/dL (7-18); BUN/Creat Ratio 23.8 RATIO (10-20); Chloride 104 mmol/L (98-107); Creatinine, Serum 0.76 mg/dL (0.55-1.02); EST Glomerular Filtration Rate 78 mL/min (>60); Est Glom Filt Rate - Afr Amer 95 mL/min (>60); Estimated Creatinine Clearance 33.86 ml/min; Glucose 133 mg/dL (74-106); Sodium Level 136 mmol/L (136-145)
[2018-06-26] MEDS: Lidocaine 4% 50 ML Bottle TOPICAL (20:43)
[2018-06-26 20:56] VITALS: BP 101/63; PULSE 76; RESP 14
== END 2018-06-26 20:57 | disposition home or self-care (01) ==
PROVIDERS: Emergency Provider Emergency Medicine; Family Provider Family Medicine; PCP Family Medicine
DX: R04.0 Epistaxis (principal); M54.2 Cervicalgia; R03.0 Elevated blood-pressure reading, without diagnosis of hypertension; R00.0 Tachycardia, unspecified; Z79.82 Long term (current) use of aspirin; Z79.01 Long term (current) use of anticoagulants; Z79.899 Other long term (current) drug therapy; Z86.73 Personal history of transient ischemic attack (TIA), and cerebral infarction without residual deficits; Z95.2 Presence of prosthetic heart valve
CPT/HCPCS: 30901; 80048; 85025; 85610; 99283; A4216

== ENCOUNTER 2018-10-09 22:28 | Inpatient (IN) | payer MEDICARE, MEDICAID, SELFPAY ==
[2018-10-09 22:28] VITALS: BP 164/67; PULSE 77; RESP 16; O2SAT 98
[2018-10-09 22:29] VITALS: BP 159/66; PULSE 81; RESP 16; TEMP 36.8; O2SAT 98; BMI 26.6
--- NOTE | 2018-10-09 23:14 | EKG12_ITS ---
Test Reason : LOWER EXTREMITIES Blood Pressure : / mmHG Vent. Rate : 082 BPM Atrial Rate : 061 BPM P-R Int : 000 ms QRS Dur : 096 ms QT Int : 402 ms P-R-T Axes : 000 009 119 degrees QTc Int : 469 ms Accelerated Junctional rhythm Nonspecific ST and T wave abnormality Abnormal ECG Confirmed by FAUSTINA HIGUERA, PEDRO ([id number]), social media editor DULCE STEVE ([id number]) on 10/12/2018 1:07:06 PM Referred By: Kael Stanley Confirmed By:PEDRO WEEMS MD
--- NOTE | 2018-10-09 23:14 | RAD_ITS ---
HISTORY: PATIENT FELL EXAMINATION/TECHNIQUE: XR Chest 1 View: COMPARISON: 10/18/17 CXR FINDINGS: LINES/DEVICES: None. LUNGS: No consolidation, edema or effusion. No pneumothorax. MEDIASTINUM AND CARDIOVASCULAR STRUCTURES: Cardiac silhouette is moderately enlarged. Central airways and mediastinal contour are unremarkable. BONES AND SOFT TISSUES: No acute findings. Chronic right humeral shaft fracture partially visible. Sternotomy wires and prosthetic heart valve again demonstrated. RAD/Chest 1 View (Portable) IMPRESSION: Cardiomegaly. No radiographic evidence of acute cardiopulmonary disease. at [id number] Reported and signed by: Beto Jeff MD Electronically Signed: Beto Jeff, at 23:43 EDT Tel , Service support ,
--- NOTE | 2018-10-09 23:15 | RAD_ITS ---
HISTORY: Pain after trauma. EXAM/TECHNIQUE: XR Hip Unilateral with Pelvis when performed; 2-3 Views: Right. COMPARISON: CT abdomen and pelvis 07/15/17. FINDINGS: # of images incl. paperwork: 2 Acute comminuted displaced proximal femoral fracture extending to the intertrochanteric femur and into the lateral shaft. The lesser trochanter is displaced medially. The shaft is impacted approximately and angulated medially. The femoral head maintains articulation with the acetabulum. No other fracture is evident. Calcific atherosclerosis. RAD/Hip Min 2 Views (Portable) IMPRESSION: Acute comminuted displaced proximal femoral fracture. at [id number] Reported and signed by: Beto Jeff MD Electronically Signed: Beto Jeff, at 23:45 EDT Tel , Service support ,
--- NOTE | 2018-10-09 23:15 | ED.VIS.LOWEX ---
History of Present Illness Chief Complaint: Lower Extremity Injury Informant: Patient, Family Occurred: Today Mechanism/Context: Fall Onset: Today - Context: Sudden Onset - stumbled on gravel, fell to right hip Quality of Pain: Aching Location: right hip Current Severity: Moderate Maximum Severity: Severe Worsened by: moving RLE Relieved by: remaining still Associated Symptoms: Loss of Funtion. Negative for: Parasthesia, Weakness Narrative: Family outpatient at [facility], she was going for a walk on gravel toward the [place] and stumbled/tripped, fell to her right hip. No other pains or injuries. No loss of consciousness. She is on Coumadin after having a mechanical heart valve replacement. Recent Illness/Hospitalization: No - Past Medical History (1) Embolic stroke Status: Chronic (2) Anxiety and depression Status: Chronic (3) Atherosclerotic heart disease of [place] coronary artery without angina pectoris Status: Chronic (4) Atrial fibrillation Status: Chronic (5) Chronic systolic congestive heart failure Status: Chronic (6) Cirrhosis Status: Chronic (7) Diabetes mellitus Status: Chronic (8) GERD (gastroesophageal reflux disease) Status: Chronic (9) Hyperlipidemia Status: Chronic (10) Hypertension Status: Chronic Past Medical History - Allergies and Home Meds Allergies/Adverse Reactions: Allergies cortisone Allergy (Verified 06/26/18 16:49) Unknown Primary Care Physician: Warren Mendoza MD [Primary Care Provider] - Surgical History: appendectomy, coronary bypass surgery, - - MV Mechanical Valve [place], TV Repair. Lives: With Family Smoking Status: Never smoker - Family History Maternal Family History: Family History (Last Reviewed 10/31/17 @ 11:29 by Janiya Alexander) Father CAD (coronary artery disease) Sudden cardiac , Onset Age: 68 Family History: Reports: No pertinent history Paternal Family History: Family History (Last Reviewed 10/31/17 @ 11:29 by Janiya Alexander) Father CAD (coronary artery disease) Sudden cardiac , Onset Age: 68 Family History: Reports: Heart Disease, Hypertension Review of Systems General: Denies: Chills, Fever, Sweats Eyes: Denies: Visual changes - bilaterally, Diplopia ENT: Denies: Rhinorrhea, Sore throat Cardiovascular: Denies: Chest pain, Palpitations Respiratory: Denies: Dyspnea, Cough, Dyspnea on exertion Gastrointestinal: Denies: Abdominal pain, Nausea, Vomiting, Diarrhea, Melena, Hematochezia Genitourinary: Denies: Dysuria, Hematuria, Frequency Musculoskeletal: Reports: Extremity Pain. Denies: Back pain Skin: Denies: Rash, Wounds Neurological: Denies: Headache, Weakness, Numbness Hematologic: Reports: Easy bruising, Easy bleeding Physical Exam Vital Signs/Narrative: Vital Signs Temp Pulse Resp BP Pulse Ox 10/09/18 22:29 98.2 F 81 16 159/66 H 98 10/09/18 22:28 77 16 164/67 H 98 Inital Vital Signs reviewed: Yes - Extremity Exam Right Hip: Limited ROM - ttp greater troch. shortened and internally rotated RLE. General: Well nourished, Well developed Head: Normocephalic, Atraumatic Eyes: Perrl, EOMI ENT: No Trauma, Moist Mucous Membranes Neck: Nontender, Full ROM Cardiovascular: Regular rate, Regular rhythm, - - mechanical click. Negative for: Tachycardia Respiratory: No distress, CTA bilaterally, Chest nontender Abdomen: Soft, Nontender, Nondistended, Normal bowel sounds Back: Nontender Skin: Normal color, No rash, No Trauma Neurological: Alert, Oriented x3, Cranial nerves II-XII grossly intact, Normal Strength, Normal Sensation Psychological: Normal affect, Normal Mood Diagnostic/Tx/Re-eval Impressions Chest X-Ray 10/09/18 23:14 IMPRESSION: Cardiomegaly. No radiographic evidence of acute cardiopulmonary disease. at 2344 Reported and signed by: Beto Jeff MD Electronically Signed: Beto Jeff, at 23:43 EDT Tel , Service support , Hip X-Ray 10/09/18 23:15 IMPRESSION: Acute comminuted displaced proximal femoral fracture. at 2346 Reported and signed by: Beto Jeff MD Electronically Signed: Beto Jeff at 23:45 EDT Tel , Service support , 10/09/18 23:14 Chest 1 View (Portable) [RAD] Stat 10/09/18 23:15 Hip Min 2 Views (Portable) [RAD] Stat Laboratory Results 10/09/18 10/09/18 10/09/18 22:35 22:35 22:35 WBC 8.4 RBC 4.23 Hgb 11.8 L Hct 37.1 MCV 87.7 MCH 27.9 MCHC 31.8 L RDW 18.1 H RDW Differential 58.7 H Plt Count 283 MPV 9.7 Immature Gran % (Auto) 0.400 Neut % (Auto) 64.1 Lymph % (Auto) 24.7 Larue % (Auto) 9.7 Eos % (Auto) 1.0 Baso % (Auto) 0.1 Absolute Neuts (auto) 5.4 Absolute Lymphs (auto) 2.07 Total Counted Not Reportable PT 23.5 H INR 2.1 Sodium 139 Potassium 4.0 Chloride 105 Carbon Dioxide 27.0 Anion Gap 7 BUN 24 H Creatinine 0.90 Estim Creat Clear Calc 45.49 Est GFR (MDRD) Af Amer 77 Est GFR (MDRD) Non-Af 64 BUN/Creatinine Ratio 26.5 H Glucose 135 H Calcium 8.9 - Rhythm Strip Rhythm Strip: Sinus Rhythm Rate: 82 Ectopy: None - EKG Initial EKG Interpretation: Sinus Rhythm - Vs. regular A. fib, No Acute Injury Pattern, - - Difficult to interpret due to she keep baseline, there does appear to be occasional P waves but the majority of complexes appear to have no P waves although the rhythm is regular Prior: Unchanged - Medical Decision Making X-rays confirm suspected right hip fracture, it appears to be at displaced comminuted intertrochanteric fracture. She is anticoagulated but lower than she should be at 2.1. She has a mechanical heart valve, this information was relayed to the hospitalist and orthopedic surgeon Dr. reilly borja, patient will be admitted. Her pain was controlled with morphine and she declined a request for any more analgesics prior to admission. ED Disposition - Plan for ED Patient: Disposition: Acute Care Hospital [facility] Diagnosis: Closed intertrochanteric fracture of right hip, Fall from slip, trip, or stumble, Warfarin-induced coagulopathy Referrals: Warren Mendoza MD [Primary Care Provider] -
[2018-10-09] MEDS: Morphine 2 MG/ML Syringe IV (23:38)
[2018-10-09] MEDS: Ondansetron 4 MG/2 ML Vial IV (23:38)
[2018-10-09 23:49] LABS: Absolute Lymphocyte Count 2.07 X10^3/ul (0.83-4.51); Absolute Neutrophil Count 5.4 X10^3/uL (2.0-7.7); Basophil# 0.01 X10^3/uL; Basophil% 0.1 % (0-1); Eosinophil# 0.08 X10^3/uL; Hematocrit 37.1 % (37-47); Hemoglobin 11.8 g/dl (12.0-15.0); Lymphocyte # 2.07 X10^3/ul (4.0); Lymphocyte % 24.7 % (19-41); Mean Corp Hgb Conc 31.8 g/gl (32-36); Mean Corpuscular Hgb 27.9 pg (27.0-32.0); Mean Corpuscular Volume 87.7 fL (81-99); Mean Platelet Vol. 9.7 fl (6.2-12.0); Monocyte# 0.81 X10^3/uL; Monocyte% 9.7 % (0-10); Neutrophil # 5.37 X10^3/uL (2.7-7.7); Neutrophil % 64.1 % (47-70); POSITIVE COUNT NO; POSITIVE DIFFERENTIAL NO; POSITIVE MORPHOLOGY NO; Platelet Count 283 K/mm3 (150-450); RBC Distribution Width CV 18.1 % (11.6-14.6); RBC Distribution Width SD 58.7 fl (35.1-43.9); Red Blood Count 4.23 M/mm3 (4.2-5.4); White Blood Count 8.4 K/mm3 (4.4-11.0)
[2018-10-09 23:52] LABS: International Normalized Ratio 2.1; Prothrombin Time (Protime)PT. 23.5 SECONDS (11.7-14.9)
[2018-10-09 23:56] LABS: Anion Gap 7 (5-15); BUN 24 mg/dL (7-18); BUN/Creat Ratio 26.5 RATIO (10-20); Calcium,Total 8.9 mg/dL (8.5-10.1); Chloride 105 mmol/L (98-107); EST Glomerular Filtration Rate 64 mL/min (>60); Est Glom Filt Rate - Afr Amer 77 mL/min (>60); Estimated Creatinine Clearance 45.49 ml/min; Glucose 135 mg/dL (74-106); Sodium Level 139 mmol/L (136-145)
[2018-10-10] VITALS (13 sets, daily range): BP systolic 114–157; BP diastolic 59–68; PULSE 76–93; RESP 16–18; TEMP 36.9–37.2; O2SAT 94–96; BMI 22.6; BMI 22.7
--- NOTE | 2018-10-10 00:33 | PCM.HP.STD ---
Problem List (1) Femoral fracture Status: Acute Qualifiers: Encounter type: initial encounter Fracture type: closed Fracture morphology: comminuted Fracture alignment: displaced Laterality: right History of Present Illness Date of Admission: 10/10/18 Chief Complaint: Right hip pain The patient is a 78 year old F with a significant history of congestive heart failure; cirrhosis; primary hypertension; mitral valve replacement and tricuspid valve repair who presented to the emergency department with right hip pain after falling. Her family attributes the fall to poor vision from shingles that affected his eyes and ears; and stroke. Per family patient was wobbly on her feet. Patient had excruciating right hip pain after the fall. She received morphine at the emergency department that helped her pain. X-ray of the right hip showed a fracture. The emergency department doctor the case discussed the case with orthopedic surgeon and patient might probably have surgery on 10/11/2018. Past Medical History Past Medical History (Chronic Problems): Chronic Problems (Last Reviewed 10/10/18 @ 02:50 by Kael Stanley MD) Embolic stroke (Chronic) Malnutrition (Chronic) Chronic systolic congestive heart failure (Chronic) Atherosclerotic heart disease of [place] coronary artery without angina pectoris (Chronic) Depression (Chronic) Anxiety (Chronic) 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 mechanical mitral valve replacement, tricuspid valve repair using 30mm Carrpenter- [place]wars annuloplasty ring, Left atria; appendage exclusion 04/11/04 @ [facility] [place] Dr. Addison Montague Cirrhosis (Chronic) Hypertension (Chronic) GERD (gastroesophageal reflux disease) (Chronic) Atrial fibrillation (Chronic) Diabetes mellitus (Chronic) Cardiomyopathy (Chronic) H/O tricuspid valve repair (Chronic) 27mm [place] mechanical mitral valve replacement, tricuspid valve repair using 30mm Carrpenter- Edwars annuloplasty ring, Left atria; appendage exclusion 04/11/04 @ [facility] [address] Addison Montague Hyperlipidemia (Chronic) Anxiety and depression (Chronic) Medical History: Medical History (Last Reviewed 10/10/18 @ 05:16 by Kael Stanley MD) Cirrhosis (Chronic) K74.60 History of CVA (cerebrovascular accident) Z86.73 Pulmonary hypertension I27.20 Allergies cortisone Allergy (Verified 06/26/18 16:49) Unknown Home Medications: Ambulatory Orders Medication Instructions Recorded nitroglycerin 0.4 mg sublingual 0.4 mg SUBLINGUAL Q5M PRN #25 tab 08/01/17 tablet potassium chloride ER 20 mEq 20 meq PO DAILY #90 tab 08/01/17 tablet,extended release(part/cryst) spironolactone 25 mg tablet 25 mg PO DAILY #90 tab 08/01/17 Acetaminophen [Tylenol] 500 mg PO Q6H PRN PRN tablet 10/21/17 furosemide 40 mg tablet 40 mg PO BID tab 07/13/18 Lisinopril [Zestril] 2.5 mg PO BID 10/09/18 Warfarin Sodium 3 mg PO DAILY 10/09/18 Surgical History: Surgical History (Last Reviewed 10/10/18 @ 05:16 by Kael Stanley MD) H/O mitral valve replacement with mechanical valve (Chronic) Z95.[address] [place] mechanical mitral valve replacement, tricuspid valve repair using 30mm Carrpenter- Edwars annuloplasty ring, Left atria; appendage exclusion 04/11/04 @ [facility] Dr. Addison Montague Hx of appendectomy Z90.49 Surgical History: appendectomy, coronary bypass surgery, - - MV Mechanical Valve [place], TV Repair. Psychiatric History: Anxiety, Depression MESS ATTENDANT History: No pertinent MESS ATTENDANT history Lives: With Family Smoking Status: Never smoker Alcohol: None - *Family History Maternal Family History: Family History (Last Reviewed 10/10/18 @ 05:16 by Kael Stanley MD) Father CAD (coronary artery disease) Sudden cardiac , Onset Age: 68 History Items: No pertinent history Paternal Family History: Family History (Last Reviewed 10/10/18 @ 05:16 by Kael Stanley MD) Father CAD (coronary artery disease) Sudden cardiac , Onset Age: 68 History Items: Heart Disease, Hypertension Review of Systems Constitutional: Denies: Chills, Fever, Weight Change HEENT: Denies: Head Aches, Sinus Congestion, Sinus Drainage Cardiovascular: Denies: Chest Pain, Palpitations Respiratory: Denies: Cough, Shortness of breath at rest, Sputum production Gastrointestinal: Denies: Abdominal Pain, Nausea, Vomiting Genitourinary: Denies: Dysuria Musculoskeletal: Reports: Joint Pain - Right hip, Joint Tenderness - Right hip Skin: Denies: Rash, Wounds Neurological: Denies: Numbness, Tingling, Focal weakness Psychiatric: Denies: Anxiety, Depression, Homicidal Ideations, Suicidal Ideations Hematologic/ Lymphatic: Denies: Easy Bruising, Easy Bleeding VTE Information - Inpt Only VTE Present on Admission: No VTE Mechan Device Prophylaxis: None VTE Pharm Prophylaxis ordered?: No Reason prophylaxis not ordered:: Treatment Not Indicated - Was on Coumadin for mechanical valve. Now bridged with heparin Patient Problems: Active and Suspected Problems (Last Reviewed 10/10/18 @ 02:50 by Kael Stanley MD) Closed intertrochanteric fracture of right hip (Acute) Fall from slip, trip, or stumble (Acute) Warfarin-induced coagulopathy (Acute) Femoral fracture (Acute) - Physical Exam General: Alert, Oriented x3, Cooperative HEENT: Atraumatic, PERRLA, EOMI, Normocephalic Neck: Supple, No JVD, Negative Carotid Bruits Lungs: Clear to auscultation, Normal air movement Cardiovascular: Regular rate, No murmurs Abdomen: Bowel Sounds Present, Soft, Non Tender Extremities: Capillary Refill Less than 3 Seconds, Tenderness - R hip Skin: No rashes, No breakdown Musculoskeletal: Tenderness - R hip Neurological: Neuro grossly intact Psych/Mental Status: Normal Affect, Appropriate Vital Signs Temp Pulse Resp BP Pulse Ox 98.2 F 81 16 159/66 H 98 10/09/18 22:29 10/09/18 22:29 10/09/18 22:29 10/09/18 22:29 10/09/18 22:29 Oxygen Delivery Method Room Air Weight: 57.8 kg Body Mass Index (BMI) 26.6 Finger Stick Blood Glucose 109 Laboratory Tests Past 24 Hrs 10/09/18 10/09/18 10/09/18 22:35 22:35 22:35 WBC 8.4 RBC 4.23 Hgb 11.8 L Hct 37.1 MCV 87.7 MCH 27.9 MCHC 31.8 L RDW 18.1 H RDW Differential 58.7 H Plt Count 283 MPV 9.7 Immature Gran % (Auto) 0.400 Neut % (Auto) 64.1 Lymph % (Auto) 24.7 [place] % (Auto) 9.7 Eos % (Auto) 1.0 Baso % (Auto) 0.1 Absolute Neuts (auto) 5.4 Absolute Lymphs (auto) 2.07 Total Counted Not Reportable PT 23.5 H INR 2.1 Sodium 139 Potassium 4.0 Chloride 105 Carbon Dioxide 27.0 Anion Gap 7 BUN 24 H Creatinine 0.90 Estim Creat Clear Calc 45.49 Est GFR (MDRD) Af Amer 77 Est GFR (MDRD) Non-Af 64 BUN/Creatinine Ratio 26.5 H Glucose 135 H Calcium 8.9 Assessment/Plan All Active Problems (Last Reviewed 10/10/18 @ 02:50 by Kael Stanley MD) Closed intertrochanteric fracture of right hip (Acute) Fall from slip, trip, or stumble (Acute) Warfarin-induced coagulopathy (Acute) Femoral fracture (Acute) Slurred speech (Acute) Heart failure (Acute) Elevated troponin (Acute) CVA (cerebral vascular accident) (Acute) intermediate frame tender (current) use of anticoagulants (Acute) Shortness of breath (Acute) Abdominal pain (Acute) Acute respiratory failure (Acute) Acute on chronic systolic heart failure (Acute) Hypertensive urgency (Acute) Epistaxis (Acute) The patient is a 78 year old F with a significant history of congestive heart failure; Afib; cirrhosis; primary hypertension; mitral valve replacement and tricuspid valve repair who presented to the emergency department with right hip pain after a probable mechanical fall and found to have radiographic evidence of acute comminuted displaced proximal femoral fracture. Acute comminuted displaced proximal femoral fracture. X-ray of her hip showed acute comminuted displaced proximal femoral fracture. Hip Xray was independently reviewed. I agree with the interpretation. Morphine as needed IV and oxycodone p.o. as needed ordered. Zofran for antiemetics. Will put on bowel protocol. Orthopedic consult. EKG showed accelerated junctional versus sinus rhythm. Patient has a history of A. fib. Because of patient comorbidities of heart failure and her age she is at high risk of surgery. Echocardiogram on 10/20/2017 showed an ejection fraction of 25 to 30%. We will repeat echocardiogram. Trend CBC. Noted to have leukocytosis that may be reactive. Admission EKG showed sinus vs Junction rhythm Per ED's doctor conversation with Orthopedic Surgeon patient will have surgery 10/12/2015 noon. Npo midnight on proposed surgery date. Mechanical mitral valve On presentation patient's INR was 2.1; which is subtherapeutic of goal of 2.5.. Last time she took her Coumadin was on the same day of presentation. Will stop Coumadin for now and bridge patient with heparin without bolus at this time. I discussed with nursing team to monitor patient closely since patient is at increased risk of bleeding from a femur fracture Afib On home Coumadin. Coumadin on hold. On heparin drip at this time Congestive heart failure Lasix; spironolactone; and lisinopril continued Trend blood pressure History of cirrhosis We will hold off home acetaminophen Lasix and spironolactone continued DVT prophylaxis Not indicated since patient was on warfarin and has been started on heparin to bridge because of implanted mechanical mitral valve. Code Visit Inpatient E&M: 88142 Init Hosp L3
--- NOTE | 2018-10-10 02:17 | ECHOD_ITS ---
Reason For Study: PRE OP Procedure This was a 2D Doppler, Color Flow transthoracic echocardiogram. The study was technically difficult. PT scanned supine due to right hip fracture. Exam performed portable in patient room. Left Ventricle Normal LV size. Mild segmental systolic dysfunction (see wall motion). The estimated ejection fraction is 45 %. Unable to assess diastolic dysfunction. Infero-Basal: Hypokinetic. Basal inferoseptal: Hypokinetic. Basal anteroseptal: Hypokinetic. Mid-Posterior: Hypokinetic. Mid- Inferior: Hypokinetic. Mid-inferoseptal : Hypokinetic. Mid-anteroseptal : Hypokinetic. Inferior Hodges : Hypokinetic. Septal Hodges : Hypokinetic. Right Ventricle Normal RV size. Normal systolic function. Atria The left atrium is severely enlarged. The right atrium is severely enlarged. No doppler evidence for ASD. Mitral Valve Stable appearing mechanical mitral valve apparatus. Trivial transvalvular insufficiency of the mitral valve. Tricuspid Valve Mild tricuspid valve insufficiency. Right ventricular systolic pressure estimated to be 32 mmHg. An annuloplasty ring is noted in the tricuspid position. Aortic Valve Trisinus/trileaflet aortic valve. Mild focal aortic valve calcification. Trivial aortic valve insufficiency. Pulmonic Valve The pulmonic valve is not well visualized. Trivial pulmonic valve insufficiency. Great Vessels Normal sized aortic root. Pericardium/Pleural No pericardial effusion. MMode/2D Measurements & Calculations LVIDd: 4.5 cm IVSd: 1.0 cm Ao root diam: 2.7 cm LVIDs: 3.8 cm LVPWd: 0.98 cm RVDd: 3.0 cm FS: 14.6 % LAV(MOD-bp): 256.0 ml LA A4 area: 51.8 cm2 LA dimension(2D): 5.9 cm LAV(MOD-bp) Indexed: 164.1 ml/m2 LAV(MOD-sp2): 260.7 ml LAV(MOD-sp4): 249.2 ml Doppler Measurements & Calculations MV E max dara: 143.2 cm/sec MV V2 max: 146.4 cm/sec Ao V2 max: 257.5 cm/sec MV max P.6 mmHg Ao max P.5 mmHg MV V2 mean: 81.3 cm/sec Ao V2 mean: 179.0 cm/sec MV mean P.1 mmHg Ao mean P.1 mmHg MV V2 VTI: 28.8 cm Ao V2 VTI: 46.8 cm AI max dara: 405.3 cm/sec LV V1 max: 125.9 cm/sec TV V2 max: 128.5 cm/sec AI max P.7 mmHg LV V1 max P.3 mmHg TV max P.6 mmHg LV V1 mean P.3 mmHg TV V2 mean: 67.8 cm/sec AI dec slope: 294.8 cm/sec2 LV V1 mean: 86.7 cm/sec TV mean P.2 mmHg AI P1/2t: 402.8 msec LV V1 VTI: 22.9 cm PA V2 max: 156.0 cm/sec TR max dara: 243.4 cm/sec TR max P.8 mmHg Interpretation Summary The study was technically difficult. Mild segmental systolic dysfunction (see wall motion). The estimated ejection fraction is 45 %. The left atrium is severely enlarged. The right atrium is severely enlarged. Stable appearing mechanical mitral valve apparatus. Trivial transvalvular insufficiency of the mitral valve. An annuloplasty ring is noted in the tricuspid position. Mild tricuspid valve insufficiency. Mild focal aortic valve calcification. Trivial aortic valve insufficiency. Trivial pulmonic valve insufficiency. Right ventricular systolic pressure estimated to be 32 mmHg. Unable to assess diastolic dysfunction. Ordering Physician: Kael Stanley Referring Physician: donnie Mendoza Performed By: Lauren Brumfield, CYNTHIA, RVT
[2018-10-10] MEDS: HEPARIN/D5w 25,000 UNITS 25,000 UNITS/250 ML IV.SOLN. 8 UNITS IV (02:33)
[2018-10-10] MEDS: 0.9% NaCl Peripheral Flush Adult/Peds IV ×2 (02:33→21:15)
[2018-10-10 02:45] LABS: Absolute Neutrophil Count 11.3 X10^3/uL (2.0-7.7); Basophil# 0.01 X10^3/uL; Basophil% 0.1 % (0-1); Hematocrit 34.2 % (37-47); Hemoglobin 10.9 g/dl (12.0-15.0); Lymphocyte % 4.7 % (19-41); Mean Corp Hgb Conc 31.9 g/gl (32-36); Mean Corpuscular Hgb 27.9 pg (27.0-32.0); Mean Corpuscular Volume 87.5 fL (81-99); Mean Platelet Vol. 9.7 fl (6.2-12.0); Monocyte# 0.87 X10^3/uL; Monocyte% 6.8 % (0-10); Neutrophil # 11.25 X10^3/uL (2.7-7.7); Neutrophil % 88.1 % (47-70); Platelet Count 252 K/mm3 (150-450); RBC Distribution Width SD 56.4 fl (35.1-43.9); Red Blood Count 3.91 M/mm3 (4.2-5.4); White Blood Count 12.8 K/mm3 (4.4-11.0)
[2018-10-10 02:47] LABS: Differential Indicated SCAN CRITERIA MET; POSITIVE COUNT NO; POSITIVE DIFFERENTIAL YES; POSITIVE MORPHOLOGY NO
[2018-10-10 02:54] LABS: Partial Thromboplast Time 31.5 Seconds (24.1-36.2)
[2018-10-10] MEDS: Ondansetron 4 MG/2 ML Vial IV (06:43)
[2018-10-10] MEDS: Morphine 2 MG/ML Syringe IV ×2 (06:43→21:14)
[2018-10-10 06:45] LABS: Bedside Glucose 147 mg/dL (70-110)
--- NOTE | 2018-10-10 07:37 | PCM.PN.HOSP ---
Patient Problems: Active and Suspected Problems (Last Reviewed 10/10/18 @ 05:16 by Kael Stanley MD) Closed intertrochanteric fracture of right hip (Acute) Fall from slip, trip, or stumble (Acute) Warfarin-induced coagulopathy (Acute) Femoral fracture (Acute) Subjective: Patient is an 78-year-old lady with multiple comorbidities including paroxysmal atrial fibrillation, mitral valve replacement, who presented to the emergency department following a fall imaging studies obtained in the ED demonstrated Acute comminuted displaced proximal femoral fracture following the right extremity Objective: GENERAL: cooperative HEENT: Atraumatic; moist oral mucosa EYES; Anicteric, Normal Conjunctiva NECK; supple, normal thyroid, RESPIRATORY: Diminished to auscultation bilaterally, CARDIOVASCULAR: Regular S1-S2 systolic click GI: soft, non-tender, normoactive bowel sounds, : No Renal angle tenderness; EXTREMITIES: No edema, no clubbing, MUSCULOSKELETAL: Right lower extremity immobilized NEURO: Awake; no lateralizing signs. SKIN: No Rash PSYCH;flat affect Vitals/I&O's: Vital Signs Temp Pulse Resp BP Pulse Ox 98.7 F 81 16 122/60 H 94 10/10/18 01:33 10/10/18 05:00 10/10/18 03:22 10/10/18 01:33 10/10/18 01:33 Oxygen Delivery Method Room Air Weight: 56.2 kg Body Mass Index (BMI) 22.6 Finger Stick Blood Glucose 109 Intake and Output for Last 24 Hours 10/08/18 10/09/18 10/10/18 23:59 23:59 23:59 Intake Total 32 / 32 Output Total 750 / 750 Balance -718 / -718 Laboratory Results 10/09/18 22:35: WBC 8.4, RBC 4.23, Hgb 11.8 L, Hct 37.1, MCV 87.7, MCH 27.9, MCHC 31.8 L, RDW 18.1 H, RDW Differential 58.7 H, Plt Count 283, MPV 9.7, Immature Gran % (Auto) 0.400, Neut % (Auto) 64.1, Lymph % (Auto) 24.7, [place] % (Auto) 9.7, Eos % (Auto) 1.0, Baso % (Auto) 0.1, Absolute Neuts (auto) 5.4, Absolute Lymphs (auto) 2.07, Total Counted Not Reportable 10/09/18 22:35: Sodium 139, Potassium 4.0, Chloride 105, Carbon Dioxide 27.0, Anion Gap 7, BUN 24 H, Creatinine 0.90, Estim Creat Clear Calc 45.49, Est GFR (MDRD) Af Amer 77, Est GFR (MDRD) Non-Af 64, BUN/Creatinine Ratio 26.5 H, Glucose 135 H, Calcium 8.9 10/09/18 22:35: PT 23.5 H, INR 2.1 10/10/18 02:29: WBC 12.8 H, RBC 3.91 L, Hgb 10.9 L, Hct 34.2 L, MCV 87.5, MCH 27.9, MCHC 31.9 L, RDW 18.0 H, RDW Differential 56.4 H, Plt Count 252, MPV 9.7, Immature Gran % (Auto) 0.300, Neut % (Auto) 88.1 H, Lymph % (Auto) 4.7 L, [place] % (Auto) 6.8, Eos % (Auto) 0.0, Baso % (Auto) 0.1, Absolute Neuts (auto) 11.3 H, Absolute Lymphs (auto) 0.60 L, Total Counted Not Reportable 10/10/18 02:29: APTT 31.5 10/10/18 06:38: POC Glucose 147 H Current Medications Dextrose (D50w Syringe) 0 gm IV X1 PRN; Protocol PRN Reason: Hypoglycemia Furosemide (Lasix) 40 mg PO BID PAT Glucagon () 1 mg IM .X1 PRN PRN Reason: Hypoglycemia Heparin Sodium (Porcine) (Heparin Na) 0 unit IV UD PRN; Protocol Heparin Sodium/Dextrose () 25,000 units in 250 mls @ 8 mls/hr IV .[id number] [facility]; Protocol Last Admin: 10/10/18 02:33 Dose: 8 mls/hr Documented by: Lisinopril (Zestril) 2.5 mg PO BID [facility] Morphine Sulfate () 2 mg IV Q3H PRN PRN PRN Reason: Severe pain (7-10/10) Last Admin: 10/10/18 06:43 Dose: 2 mg Documented by: Ondansetron HCl (Zofran) 4 mg IV Q8H PRN PRN PRN Reason: NAUSEA/VOMITING Last Admin: 10/10/18 06:43 Dose: 4 mg Documented by: Oxycodone HCl (Oxyir) 5 mg PO Q4H PRN PRN PRN Reason: Moderate Pain (4-6/10) Potassium Chloride (K-Dur) 20 meq PO DAILY [facility] Senna/Docusate Sodium (Senokot-S, Jaja-Colace) 1 tablet PO BID PAT Sodium Chloride () 10 - 40 ml IV UD PRN PRN Reason: SALINE FLUSH Last Admin: 10/10/18 02:33 Dose: 10 ml Documented by: Spironolactone (Aldactone) 25 mg PO DAILY [facility] Medical Necessity - Tobacco Use Smoking Status: Never smoker Assessment/Plan All Active Problems (Last Reviewed 10/10/18 @ 05:16 by Kael Stanley MD) Closed intertrochanteric fracture of right hip (Acute) Fall from slip, trip, or stumble (Acute) Warfarin-induced coagulopathy (Acute) Femoral fracture (Acute) Slurred speech (Acute) Heart failure (Acute) Elevated troponin (Acute) CVA (cerebral vascular accident) (Acute) penitentiary (current) use of anticoagulants (Acute) Shortness of breath (Acute) Abdominal pain (Acute) Acute respiratory failure (Acute) Acute on chronic systolic heart failure (Acute) Hypertensive urgency (Acute) Epistaxis (Acute) Patient is an 78-year-old lady with multiple comorbidities including paroxysmal atrial fibrillation, mitral valve replacement, who presented to the emergency department following a fall imaging studies obtained in the ED demonstrated Acute comminuted displaced proximal femoral fracture following the right extremity 1. Acute comminuted displaced proximal femoral fracture involving the right lower extremity patient is been admitted to regular nursing floor. Currently management pain medication, immobilization and consultation placed to orthopedic surgery. Patient has history of mechanical valve and is on Coumadin. Coumadin was held subsequently started on heparin for bridging. EKG on admission demonstrated sinus rhythm. Echo obtained on 10/20/2017 demonstrated decreased ejection fraction of 25 to 30%. Patient perioperative risk is estimated to be medium to high. Patient has been seen and followed by cardiology consultation was therefore placed. 2. Valvular heart disease: Patient has history of mitral valve replacement with [employer] Dakota's, tricuspid valve repair. Patient is on systemic anticoagulation with Coumadin INR on admission was 2.5 3. Paroxysmal atrial fibrillation in sinus rhythm on admission Coumadin on hold 4. Coronary artery disease with previous CABG 5. Chronic systolic congestive heart failure with ejection fraction of 25 to 30% 6. 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 Diabetes mellitus type 2 managed with diet 8. Dyslipidemia 9. Hypertension blood pressure controlled 10. 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 DVT prophylaxis on Coumadin no need for additional measures Clinical Impression(s) from Imaging Studies Chest X-Ray 10/09/18 23:14 IMPRESSION: Cardiomegaly. No radiographic evidence of acute cardiopulmonary disease. at 2344 Reported and signed by: Beto Jeff MD Electronically Signed: Beto Jeff, at 23:43 EDT Tel , Service support , Hip X-Ray 10/09/18 23:15 IMPRESSION: Acute comminuted displaced proximal femoral fracture. at 2346 Reported and signed by: Beto Jeff MD Electronically Signed: Beto Jeff, at 23:45 EDT Tel , Service support , Code Visit Inpatient E&M: [id number] [facility] L[facility]
--- NOTE | 2018-10-10 08:51 | CON.PCM_ITS ---
Reason for Consult Date of Consultation: 10/10/18 Reason for Consultation: RIGHT HIP PAIN History of Present Illness: The patient is a 78 year old F [who tripped and fell at home suffering a right intertrochanteric hip fx. She denies LOC or pain elsewhere. Denies N/T/P.] Past Medical History Past Medical History (Chronic Problems): Chronic Problems (Last Reviewed 10/10/18 @ 05:16 by Kael Stanley MD) Embolic stroke (Chronic) Malnutrition (Chronic) Chronic systolic congestive heart failure (Chronic) Atherosclerotic heart disease of [place] coronary artery without angina pectoris (Chronic) Depression (Chronic) Anxiety (Chronic) 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 [place] mechanical mitral valve replacement, tricuspid valve repair using 30mm Carrpenter- Edwars annuloplasty ring, Left atria; appendage exclusion 04/11/04 @ [facility] Dr. Adidson Montague Cirrhosis (Chronic) Hypertension (Chronic) GERD (gastroesophageal reflux disease) (Chronic) Atrial fibrillation (Chronic) Diabetes mellitus (Chronic) Cardiomyopathy (Chronic) H/O tricuspid valve repair (Chronic) 27mm [employer] [place] mechanical mitral valve replacement, tricuspid valve repair using 30mm Carrpenter- Edwars annuloplasty ring, Left atria; appendage exclusion 04/11/04 @ [facility] Dr. Addison Montague Hyperlipidemia (Chronic) Anxiety and depression (Chronic) Medical History: Medical History (Last Reviewed 10/10/18 @ 05:16 by Kael Stanley MD) Cirrhosis (Chronic) K74.60 History of CVA (cerebrovascular accident) Z86.73 Pulmonary hypertension I27.20 Allergies cortisone Allergy (Verified 06/26/18 16:49) Unknown Home Medications: Ambulatory Orders Medication Instructions Recorded nitroglycerin 0.4 mg sublingual 0.4 mg SUBLINGUAL Q5M PRN #25 tab 08/01/17 tablet potassium chloride ER 20 mEq 20 meq PO DAILY #90 tab 08/01/17 tablet,extended release(part/cryst) spironolactone 25 mg tablet 25 mg PO DAILY #90 tab 08/01/17 Acetaminophen [Tylenol] 500 mg PO Q6H PRN PRN tablet 10/21/17 furosemide 40 mg tablet 40 mg PO BID tab 07/13/18 Lisinopril [Zestril] 2.5 mg PO BID 10/09/18 Warfarin Sodium 3 mg PO DAILY 10/09/18 Surgical History: Surgical History (Last Reviewed 10/10/18 @ 05:16 by Kael Stanley MD) H/O mitral valve replacement with mechanical valve (Chronic) Z95.[address] [place] mechanical mitral valve replacement, tricuspid valve repair using 30mm Carrpenter- Edwars annuloplasty ring, Left atria; appendage exclusion 04/11/04 @ [facility] Dr. Addison Montague Hx of appendectomy Z90.49 Surgical History: appendectomy, coronary bypass surgery, - - MV Mechanical Valve [employer], TV Repair. Psychiatric History: Anxiety, Depression VP OF PRODUCT History: No pertinent VP OF PRODUCT history Lives: With Family Smoking Status: Never smoker Alcohol: None - *Family History Maternal Family History: Family History (Last Reviewed 10/10/18 @ 05:16 by Kael Stanley MD) Father CAD (coronary artery disease) Sudden cardiac , Onset Age: 68 History Items: No pertinent history Paternal Family History: Family History (Last Reviewed 10/10/18 @ 05:16 by Kael Stanley MD) Father CAD (coronary artery disease) Sudden cardiac , Onset Age: 68 History Items: Heart Disease, Hypertension Patient Problems: Active and Suspected Problems (Last Reviewed 10/10/18 @ 05:16 by Kael Stanley MD) Closed intertrochanteric fracture of right hip (Acute) Fall from slip, trip, or stumble (Acute) Warfarin-induced coagulopathy (Acute) Femoral fracture (Acute) - Physical Exam General: Alert, Oriented x3, No apparent distress Extremities: No clubbing, No cyanosis, No edema, Capillary Refill Less than 3 Seconds, No Calf Tenderness, Tenderness - Right hip with shortening and external rotation Skin: No rashes, No breakdown Neurological: Neuro grossly intact Vital Signs Temp Pulse Resp BP Pulse Ox 98.7 F 81 16 122/60 H 95 10/10/18 01:33 10/10/18 05:00 10/10/18 03:22 10/10/18 01:33 10/10/18 07:30 Oxygen Delivery Method Room Air Weight: 123 lb 14.397 oz Body Mass Index (BMI) 22.6 Finger Stick Blood Glucose 109 Intake and Output for Last 24 Hours 10/08/18 10/09/18 10/10/18 23:59 23:59 23:59 Intake Total 32 / 32 Output Total 750 / 750 Balance -718 / -718 Laboratory Tests Past 24 Hrs 10/09/18 10/09/18 10/09/18 22:35 22:35 22:35 WBC 8.4 RBC 4.23 Hgb 11.8 L Hct 37.1 MCV 87.7 MCH 27.9 MCHC 31.8 L RDW 18.1 H RDW Differential 58.7 H Plt Count 283 MPV 9.7 Immature Gran % (Auto) 0.400 Neut % (Auto) 64.1 Lymph % (Auto) 24.7 [place] % (Auto) 9.7 Eos % (Auto) 1.0 Baso % (Auto) 0.1 Absolute Neuts (auto) 5.4 Absolute Lymphs (auto) 2.07 Total Counted Not Reportable PT 23.5 H INR 2.1 APTT Sodium 139 Potassium 4.0 Chloride 105 Carbon Dioxide 27.0 Anion Gap 7 BUN 24 H Creatinine 0.90 Estim Creat Clear Calc 45.49 Est GFR (MDRD) Af Amer 77 Est GFR (MDRD) Non-Af 64 BUN/Creatinine Ratio 26.5 H Glucose 135 H Calcium 8.9 10/10/18 10/10/18 10/10/18 02:29 02:29 07:30 WBC 12.8 H RBC 3.91 L Hgb 10.9 L Hct 34.2 L MCV 87.5 MCH 27.9 MCHC 31.9 L RDW 18.0 H RDW Differential 56.4 H Plt Count 252 MPV 9.7 Immature Gran % (Auto) 0.300 Neut % (Auto) 88.1 H Lymph % (Auto) 4.7 L [place] % (Auto) 6.8 Eos % (Auto) 0.0 Baso % (Auto) 0.1 Absolute Neuts (auto) 11.3 H Absolute Lymphs (auto) 0.60 L Total Counted Not Reportable PT INR APTT 31.5 Pending Sodium Potassium Chloride Carbon Dioxide Anion Gap BUN Creatinine Estim Creat Clear Calc Est GFR (MDRD) Af Amer Est GFR (MDRD) Non-Af BUN/Creatinine Ratio Glucose Calcium POC Glucose 10/10/18 06:38 POC Glucose 147 H Assessment/Plan All Active Problems (Last Reviewed 10/10/18 @ 05:16 by Kael Stanley MD) Closed intertrochanteric fracture of right hip (Acute) Fall from slip, trip, or stumble (Acute) Warfarin-induced coagulopathy (Acute) Femoral fracture (Acute) Slurred speech (Acute) Heart failure (Acute) Elevated troponin (Acute) CVA (cerebral vascular accident) (Acute) custodial (current) use of anticoagulants (Acute) Shortness of breath (Acute) Abdominal pain (Acute) Acute respiratory failure (Acute) Acute on chronic systolic heart failure (Acute) Hypertensive urgency (Acute) Epistaxis (Acute) Right intertrochanteric hip fx-- To OR tomorrow for ORIF
[2018-10-10 08:56] LABS: Partial Thromboplast Time 73.2 Seconds (24.1-36.2)
[2018-10-10] MEDS: Senna/Docusate Sodium 1 Tablet PO ×2 (09:43→21:05)
[2018-10-10] MEDS: Furosemide 40 MG Tablet PO ×2 (09:43→21:05)
[2018-10-10] MEDS: Spironolactone 25 MG Tablet PO (09:45)
[2018-10-10] MEDS: Lisinopril 2.5 MG Tablet PO ×2 (09:46→21:05)
[2018-10-10 09:52] LABS: Hematocrit 32.8 % (37-47); Hemoglobin 10.5 g/dl (12.0-15.0); Mean Corpuscular Hgb 27.6 pg (27.0-32.0); Mean Corpuscular Volume 86.1 fL (81-99); Mean Platelet Vol. 9.4 fl (6.2-12.0); Platelet Count 234 K/mm3 (150-450); RBC Distribution Width CV 18.1 % (11.6-14.6); RBC Distribution Width SD 57.3 fl (35.1-43.9); Red Blood Count 3.81 M/mm3 (4.2-5.4)
[2018-10-10 09:54] LABS: Scan Indicated on CBC? Y/N NO
--- NOTE | 2018-10-10 09:55 | NURSING ---
At 0730 am, Jing GROVER and this nurse checked Heparin drip for correct settings. Both nurses verified that settings was correct.
--- NOTE | 2018-10-10 10:48 | NURSING ---
Report given to Elle GROVER in PCU at this time. This nurse wanted to get consent for patients planned surgery for 10/11/[address] Ospina did not write for what he wants consent.
--- NOTE | 2018-10-10 10:56 | CM.UR ---
RN TAYLOR COOK 3 PASTRY CM to room to meet with patient for initial transition planning/care coordination assessment. LENORE VAZQUEZ introduced self and role at [facility] [place]. Pt voices understanding and consents to assessment at this time. Pt resting in bed in no distress at this time. No family members present. Pt is A/O at this time and answers all questions appropriately. Care providers, pharmacy, and demographics verified at this time. PCP: Kelly Specialists: [facility]: [facility] Health Insurance: [employer] [facility] Prescription Benefit: [employer] Living Will/HPOA: None. Declines additional information at this time. LNOK: , Harjit Living Arrangements: One story home. Rarely goes to basement. 2 steps in with railing. ADLs: Needs assistance with all ADLs. Currently both and son live in home and assist patient. Has another son and [id number] that lives next door. Transportation: Does not drive. Depends upon family for transportations. Denies concerns. DME: Has grab bars, walker and w/c. States prior to admission she was not requiring any assistance device. HHC/SNF: Was admitted to [facility] last october after she suffered a stroke. PLAN: To OR for [facility] tomorrow. DC disposition TBD. Lincoln Ca RN, CCM.
[2018-10-10 12:06] LABS: Bedside Glucose 145 mg/dL (70-110)
[2018-10-10] MEDS: oxyCODONE 5 MG Tablet PO ×2 (12:07→17:51)
[2018-10-10 14:45] LABS: Partial Thromboplast Time 116.2 Seconds (24.1-36.2)
--- NOTE | 2018-10-10 17:30 | CON.PCM_ITS ---
Problem List (1) Atrial fibrillation Status: Acute (2) CAD (coronary artery disease) Status: Chronic (3) H/O mitral valve replacement with mechanical valve Status: Chronic Comment: 27mm [place]. [place] mechanical mitral valve replacement, tricuspid valve repair using 30mm Carrpenter- Edwars annuloplasty ring, Left atria; appendage exclusion 04/11/[address] [facility] [place] [place] Dr. Addison Montague (4) H/O tricuspid valve repair Status: Chronic Comment: 27mm [place] mechanical mitral valve replacement, tricuspid valve repair using 30mm Carrpenter- Edwars annuloplasty ring, Left atria; appendage exclusion 04/11/[address] [facility] [place] Dr. 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 (10) Closed intertrochanteric fracture of right hip Status: Acute (11) Preoperative cardiovascular examination Status: Acute Reason for Consult Date of Consultation: 10/10/18 History of Present Illness: The patient is a 78 year old white female with a past cardiovascular history which is included atrial fibrillation, CAD-mild, status post mitral valve replacement-mechanical, status post tricuspid valve repair, non-CAD related cardiomyopathy, chronic systolic CHF, hyperlipidemia, hypertension, diabetes mellitus, long-term anticoagulant use, who now presents for evaluation of a right hip fracture with preoperative cardiovascular examination. To the best of her knowledge she has not been having any acute cardiovascular symptoms with respect to ongoing chest discomfort or acute shortness of breath or dyspnea. There has been no evidence of ongoing orthopnea or PND or worsening peripheral pitting edema. She denies near syncope or syncope. She states she has been taking her medication at home as prescribed. She states that she had an accidental fall. This led to her hip discomfort. She was subsequently evaluated in the [facility] emergency department. She was found to have a right hip fracture. She has been evaluated by orthopedic surgery has been recommended for right hip ORIF. Her graph in the meantime she has been placed on the PCU for further cardiovascular monitoring. She has had no acute symptoms. Her cardiac rhythm has demonstrated findings compatible with atrial fibrillation. An ECG was performed which suggested an underlying accelerated junctional rhythm at the time with nonspecific ST and T wave abnormality. She has subsequently undergone evaluation with a transthoracic echocardiogram. The results are as noted below. [] Past Medical History Allergies/Adverse Reactions: Allergies cortisone Allergy (Verified 06/26/18 16:49) Unknown Home Medications: Ambulatory Orders Medication Instructions Recorded nitroglycerin 0.4 mg sublingual 0.4 mg SUBLINGUAL Q5M PRN #25 tab 08/01/17 tablet potassium chloride ER 20 mEq 20 meq PO DAILY #90 tab 08/01/17 tablet,extended release(part/cryst) spironolactone 25 mg tablet 25 mg PO DAILY #90 tab 08/01/17 Acetaminophen [Tylenol] 500 mg PO Q6H PRN PRN tablet 10/21/17 furosemide 40 mg tablet 40 mg PO BID tab 07/13/18 Lisinopril [Zestril] 2.5 mg PO BID 10/09/18 Warfarin Sodium 3 mg PO DAILY 10/09/18 Past Medical History (Chronic Problems): Chronic Problems (Last Reviewed 10/10/18 @ 05:16 by Kael Stanley MD) Embolic stroke (Chronic) Malnutrition (Chronic) CAD (coronary artery disease) (Chronic) Heart failure (Chronic) care home (current) use of anticoagulants (Chronic) Chronic systolic congestive heart failure (Chronic) Atherosclerotic heart disease of [place] coronary artery without angina pectoris (Chronic) Depression (Chronic) Anxiety (Chronic) 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 [place] mechanical mitral valve replacement, tricuspid valve repair using 30mm Carrpenter- Edwars annuloplasty ring, Left atria; appendage exclusion 04/11/[address] [facility] [place] Dr. Addison Montague Cirrhosis (Chronic) Hypertension (Chronic) GERD (gastroesophageal reflux disease) (Chronic) Atrial fibrillation (Chronic) Diabetes mellitus (Chronic) Cardiomyopathy (Chronic) H/O tricuspid valve repair (Chronic) 27mm St. [place] mechanical mitral valve replacement, tricuspid valve repair using 30mm Carrpenter- Edwars annuloplasty ring, Left atria; appendage exclusion 04/11/[address] [facility] [place] [place] Dr. Addison Montague Hyperlipidemia (Chronic) Anxiety and depression (Chronic) Surgical History: appendectomy, coronary bypass surgery, - - MV Mechanical Valve [place], TV Repair. 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 - *Family History Maternal Family History: Family History (Last Reviewed 10/10/18 @ 05:16 by Kael Stanley MD) Father CAD (coronary artery disease) Sudden cardiac , Onset Age: 68 History Items: No pertinent history Paternal Family History: Family History (Last Reviewed 10/10/18 @ 05:16 by Kael Stanley MD) Father CAD (coronary artery disease) Sudden cardiac , Onset Age: 68 History Items: Heart Disease, Hypertension Lives: With Family Smoking Status: Never smoker Alcohol: None Drugs: None Review of Systems - Review of Systems General: Denies: Fever, Night Sweats, Fatigue Cardiovascular: Denies: Chest Discomfort, Shortness of Breath, Orthopnea, PND, Peripheral Edema, Palpitations, Lightheadedness, Dizziness, Near Syncope, Syncope Respiratory: Denies: Cough, Sputum Production, Hemoptysis Gastrointestinal: Denies: Hematemesis, Hematochezia, Melena Genitourinary: Denies: Dysuria, Hematuria Skin: Denies: Rash Subjectve: This is a thin frail-appearing 78-year-old white female who appears to be resting in the supine position comfortably in no acute distress at this time. Objective: Vital Signs Temp Pulse Resp BP Pulse Ox 98.4 F 78 16 130/68 H 96 10/10/18 15:00 10/10/18 15:15 10/10/18 15:00 10/10/18 15:00 10/10/18 15:00 Oxygen Delivery Method Room Air Weight: 123 lb 14.397 oz Body Mass Index (BMI) 22.6 Finger Stick Blood Glucose 109 Intake and Output for Last 24 Hours 10/08/18 10/09/18 10/10/18 23:59 23:59 23:59 Intake Total 74.9 / 74.9 Output Total 1300 / 1300 Balance -1225.1 / -1225.1 General: Awake, Alert, Oriented x 3, Cooperative, No Acute Distress HEENT: Atraumatic, Normocephalic, PERRL, EOMI, Sclera Non Icteric Oral: Moist Mucosa Neck: Supple, Good ROM, No JVD Lungs: Clear to auscultation Cardiovascular: Irregular Rhythm, Normal S2, [place] Prosthetic S1 Murmur Murmur: Grade 2/6, Mid Systolic, LLSB, [place], LVOT Vascular: No Carotid Bruits Abdomen: Bowel Sounds Present, Soft, Non Tender Extremities: No edema Psych/Mental Status: Appropriate 10/09/18 22:35: WBC 8.4, RBC 4.23, Hgb 11.8 L, Hct 37.1, MCV 87.7, MCH 27.9, MCHC 31.8 L, RDW 18.1 H, RDW Differential 58.7 H, Plt Count 283, MPV 9.7, Immature Gran % (Auto) 0.400, Neut % (Auto) 64.1, Lymph % (Auto) 24.7, [place] % (Auto) 9.7, Eos % (Auto) 1.0, Baso % (Auto) 0.1, Absolute Neuts (auto) 5.4, Total Counted Not Reportable 10/09/18 22:35: Sodium 139, Potassium 4.0, Chloride 105, Carbon Dioxide 27.0, Anion Gap 7, BUN 24 H, Creatinine 0.90, Est GFR (MDRD) Af Amer 77, Est GFR (MDRD) Non-Af 64, BUN/Creatinine Ratio 26.5 H, Glucose 135 H, Calcium 8.9 10/09/18 22:35: PT 23.5 H, INR 2.1 10/10/18 02:29: WBC 12.8 H, RBC 3.91 L, Hgb 10.9 L, Hct 34.2 L, MCV 87.5, MCH 27.9, MCHC 31.9 L, RDW 18.0 H, RDW Differential 56.4 H, Plt Count 252, MPV 9.7, Immature Gran % (Auto) 0.300, Neut % (Auto) 88.1 H, Lymph % (Auto) 4.7 L, [place] % (Auto) 6.8, Eos % (Auto) 0.0, Baso % (Auto) 0.1, Absolute Neuts (auto) 11.3 H, Total Counted Not Reportable 10/10/18 02:29: APTT 31.5 10/10/18 07:30: APTT 73.2 H 10/10/18 09:45: WBC 8.0, RBC 3.81 L, Hgb 10.5 L, Hct 32.8 L, MCV 86.1, MCH 27.6, MCHC 32.0, RDW 18.1 H, RDW Differential 57.3 H, Plt Count 234, MPV 9.4 10/10/18 14:00: APTT 116.2 H* Rhythm: Atrial fibrillation EKG: As above ECHO: Interpretation Summary The study was technically difficult. Mild segmental systolic dysfunction (see wall motion). The estimated ejection fraction is 45 %. The left atrium is severely enlarged. The right atrium is severely enlarged. Stable appearing mechanical mitral valve apparatus. Trivial transvalvular insufficiency of the mitral valve. An annuloplasty ring is noted in the tricuspid position. Mild tricuspid valve insufficiency. Mild focal aortic valve calcification. Trivial aortic valve insufficiency. Trivial pulmonic valve insufficiency. Right ventricular systolic pressure estimated to be 32 mmHg. Unable to assess diastolic dysfunction. Cardiac Cath: 06-14-2008: Left main patent; LAD with diffuse minimal luminal irregularities; LCx with a small first OM with diffuse 25% appearing stenosis; RCA with ostial 50% stenosis and post nitroglycerin with the appearance of res idual 10 to 25% stenosis indicative of catheter based induced coronary artery vasospasm with a subsequent proximal to mid 25% eccentric appearing stenosis; mechanical [place] mitral valve prosthesis with both leaflets appearing to open and close appropriately; tricuspid valve ring present CT Surgery: 04-11-2004: [facility]: [place], [place]: Mitral valve replacement with a 27 mm [place] mechanical prosthesis; tricuspid valve repair with a 30 mm Brii-Davis annuloplasty ring; left atrial appendage exclusion CXR: Patient: Postsurgical changes: No acute cardiopulmonary disease process appreciated: Please see official report Assessment/Plan 1. Atrial fibrillation The patient has a history of atrial fibrillation. She has been on medical management which has included anticoagulation. The present time her rate and rhythm will be followed for any other changes. The patient will need to continue anticoagulant therapy for her multiple cardiovascular issues. At this point in time noting her warfarin therapy will be interrupted for her orthopedic surgery she can receive bridging anticoagulant therapy with agents such as IV heparin. 2. CAD The patient has a history of CAD. Is been thought to be non-angiographically significant. She has had no acute symptoms. She will need to continue risk factor modification medical therapy as tolerated. 3. 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 She has been on warfarin. At the present time she will continue to be followed. She has been reassessed with echocardiographic studies as noted above. Her medications will be adjusted to allow for intermittent interruption of her warfarin therapy with bridging anticoagulant therapy and is around the time of her noncardiac surgical procedure. 4. Cardiomyopathy The patient has a history of a non-CAD related cardia myopathy. She has had waxing and waning left ventricular systolic function/LVEF. Based upon her echocardiogram earlier today her estimated LVEF was approximately 45%. At the moment she appears to be without acute symptoms. She will need to continue medical management. 5. Chronic systolic CHF Again she is without any acute symptoms at this time. She will continue to be followed. She will continue medical management. 6. Hyper lipidemia She will continue medical therapy as deemed appropriate. 7. Hypertension She will continue antihypertensive therapy with adjustment as needed. 8. Diabetes mellitus She will continue under the care of internal medicine. 9. Long-term anticoagulant therapy Again she will have her oral anticoagulant therapy interrupted. She will continue with bridging anticoagulant therapy with IV heparin. 10. Right hip fracture/preoperative cardiovascular assessment At the present time she appears to be without any acute cardiovascular symptoms or adverse events. She will continue to be monitored. She will continue medical therapy with adjustment as needed. She will proceed with her right hip ORIF. She should have close monitoring her cardiac rate rhythm and blood pressure during and following the procedure. Attempt should be made to avoid excess volume overload during and after the procedure. Hopefully based upon what appears to be her stable clinical course and her most current left ventricular systolic function/LVEF estimates her risk for adverse cardiovascular events from noncardiac surgery will be kept at a minimum. Comment: The patient's case was discussed and reviewed with patient and Dr. Velez. This note was generated using a voice recognition system and there may be inco rrect words, spelling or punctuation that were not noted when reviewing the office note prior to saving.
[2018-10-10 20:27] LABS: Partial Thromboplast Time 48.1 Seconds (24.1-36.2)
[2018-10-10] MEDS: Heparin Injection (Vial) 5,000 UNIT/ML VIAL IV (20:44)
[2018-10-11] VITALS (11 sets, daily range): BP systolic 114–135; BP diastolic 48–70; PULSE 76–96; RESP 16–20; TEMP 36.8–37.3; O2SAT 94–97; BMI 22.6
[2018-10-11 01:43] LABS: Absolute Lymphocyte Count 0.69 X10^3/ul (0.83-4.51); Absolute Neutrophil Count 7.2 X10^3/uL (2.0-7.7); Basophil# 0.01 X10^3/uL; Basophil% 0.1 % (0-1); Eosinophil# 0.04 X10^3/uL; Eosinophils% 0.4 % (0-5); Hematocrit 33.7 % (37-47); Hemoglobin 10.9 g/dl (12.0-15.0); Lymphocyte # 0.69 X10^3/ul (4.0); Lymphocyte % 7.7 % (19-41); Mean Corp Hgb Conc 32.3 g/gl (32-36); Mean Corpuscular Hgb 28.2 pg (27.0-32.0); Mean Corpuscular Volume 87.1 fL (81-99); Mean Platelet Vol. 10.1 fl (6.2-12.0); Monocyte# 0.98 X10^3/uL; Neutrophil # 7.19 X10^3/uL (2.7-7.7); Neutrophil % 80.5 % (47-70); Platelet Count 258 K/mm3 (150-450); RBC Distribution Width CV 18.4 % (11.6-14.6); RBC Distribution Width SD 57.9 fl (35.1-43.9); Red Blood Count 3.87 M/mm3 (4.2-5.4); White Blood Count 8.9 K/mm3 (4.4-11.0)
[2018-10-11 01:51] LABS: Anion Gap 5 (5-15); BUN 28 mg/dL (7-18); BUN/Creat Ratio 27.2 RATIO (10-20); Calcium,Total 9.1 mg/dL (8.5-10.1); Chloride 101 mmol/L (98-107); Creatinine, Serum 1.03 mg/dL (0.55-1.02); EST Glomerular Filtration Rate 55 mL/min (>60); Est Glom Filt Rate - Afr Amer 66 mL/min (>60); Estimated Creatinine Clearance 34.45 ml/min; Glucose 147 mg/dL (74-106); Magnesium 2.4 mg/dL (1.6-2.6); Potassium 4.7 mmol/L (3.5-5.1); Sodium Level 133 mmol/L (136-145)
[2018-10-11 02:00] LABS: International Normalized Ratio 2.5; Prothrombin Time (Protime)PT. 26.8 SECONDS (11.7-14.9)
[2018-10-11 02:01] LABS: POSITIVE COUNT NO; POSITIVE DIFFERENTIAL NO; POSITIVE MORPHOLOGY NO
[2018-10-11 02:02] LABS: Partial Thromboplast Time 94.1 Seconds (24.1-36.2)
[2018-10-11] MEDS: oxyCODONE 5 MG Tablet PO ×4 (03:20→21:19)
[2018-10-11 07:52] LABS: Partial Thromboplast Time 55.8 Seconds (24.1-36.2)
[2018-10-11] MEDS: Senna/Docusate Sodium 1 Tablet PO ×2 (09:02→21:19)
[2018-10-11] MEDS: Lisinopril 2.5 MG Tablet PO ×2 (09:03→21:19)
[2018-10-11] MEDS: Furosemide 40 MG Tablet PO ×2 (09:04→21:19)
[2018-10-11] MEDS: Spironolactone 25 MG Tablet PO (09:04)
[2018-10-11] MEDS: 0.9% NaCl Peripheral Flush Adult/Peds IV ×2 (10:30→20:35)
[2018-10-11] MEDS: Morphine 2 MG/ML Syringe IV ×2 (10:30→20:34)
--- NOTE | 2018-10-11 10:36 | PN.CARD_ITS ---
Subjectve: The patient is awake and alert. She denies ongoing issues of classic angina pectoris or overt issues of CHF or pulmonary edema. There is been no near syncope or syncope. She has not noted any obvious palpitations. Objective: Vital Signs Temp Pulse Resp BP Pulse Ox 99.2 F H 81 20 H 124/70 H 96 10/11/18 08:55 10/11/18 08:55 10/11/18 08:55 10/11/18 08:55 10/11/18 08:55 Oxygen Delivery Method Room Air Weight: 123 lb 14.397 oz Body Mass Index (BMI) 22.6 Finger Stick Blood Glucose 109 Intake and Output for Last 24 Hours 10/09/18 10/10/18 10/11/18 23:59 23:59 23:59 Intake Total 250.3 / 250.3 261.7 / 261.7 Output Total 1800 / 1800 350 / 350 Balance -1549.7 / -1549.7 -88.3 / -88.3 General: Awake, Alert, Oriented x 3, Cooperative, No Acute Distress HEENT: Atraumatic, Normocephalic, PERRL, EOMI, Sclera Non Icteric Oral: Moist Mucosa Neck: Supple, Good ROM, No JVD Lungs: Clear to auscultation Cardiovascular: Irregular Rhythm, Normal S1, Normal S2 Abdomen: Bowel Sounds Present, Soft, Non Tender Extremities: No edema 10/10/18 14:00: APTT 116.2 H* 10/10/18 20:07: APTT 48.1 H 10/11/18 01:20: WBC 8.9, RBC 3.87 L, Hgb 10.9 L, Hct 33.7 L, MCV 87.1, MCH 28.2, MCHC 32.3, RDW 18.4 H, RDW Differential 57.9 H, Plt Count 258, MPV 10.1, Immature Gran % (Auto) 0.300, Neut % (Auto) 80.5 H, Lymph % (Auto) 7.7 L, [place] % (Auto) 11.0 H, Eos % (Auto) 0.4, Baso % (Auto) 0.1, Absolute Neuts (auto) 7.2, Total Counted Not Reportable 10/11/18 01:20: PT 26.8 H, INR 2.5 10/11/18 01:20: Sodium 133 L, Potassium 4.7, Chloride 101, Carbon Dioxide 27.0, Anion Gap 5, BUN 28 H, Creatinine 1.03 H, Est GFR (MDRD) Af Amer 66, Est GFR (MDRD) Non-Af 55 L, BUN/Creatinine Ratio 27.2 H, Glucose 147 H, Calcium 9.1, Magnesium 2.4 10/11/18 01:20: APTT 94.1 H* 10/11/18 07:17: APTT 55.8 H Rhythm: Atrial fibrillation; PVCs; episode of nonsustained wide-complex tachycardia compatible with nonsustained VT Medical Necessity - Tobacco Use Smoking Status: Never smoker Assessment/Plan 1. Atrial fibrillation The patient has a history of atrial fibrillation. She has been on medical management which has included anticoagulation. The present time her rate and rhythm will be followed for any other changes. Based upon her rhythm changes noted she will be started on additional medical therapy with antiarrhythmic therapy with amiodarone. The patient will need to continue anticoagulant therapy for her multiple cardiovascular issues. At this point in time noting her warfarin therapy will be interrupted for her orthopedic surgery she can receive bridging anticoagulant therapy with agents such as IV heparin. 2. CAD The patient has a history of CAD. Is been thought to be non-angiographically significant. She has had no acute symptoms. She will need to continue risk factor modification medical therapy as tolerated. 3. Valvular heart disease status post mechanical mitral valve replacement and status post tricuspid valve repair The patient has continue with [facility] antibiotic prophylaxis therapy and anticoagulant therapy. She has been on warfarin. At the present time she will continue to be followed. Her repeat transthoracic echocardiogram demonstrates her estimated LVEF to be 45%. Her medications will be adjusted to allow for intermittent interruption of her warfarin therapy with bridging anticoagulant therapy and is around the time of her noncardiac surgical procedure. 4. Cardiomyopathy The patient has a history of a non-CAD related cardia myopathy. She has had waxing and waning left ventricular systolic function/LVEF. Based upon her echocardiogram her estimated LVEF was approximately 45%. At the moment she appears to be without acute symptoms. She will need to continue medical management. 5. Chronic systolic CHF Again she is without any acute symptoms at this time. She will continue to be followed. She will continue medical management. 6. Hyperlipidemia She will continue medical therapy as deemed appropriate. 7. Hypertension She will continue antihypertensive therapy with adjustment as needed. 8. Diabetes mellitus She will continue under the care of internal medicine. 9. Long-term anticoagulant therapy Again she will have her oral anticoagulant therapy interrupted. She will continue with bridging anticoagulant therapy with IV heparin. 10. Right hip fracture/preoperative cardiovascular assessment At the present time she appears to be without any acute cardiovascular symptoms or adverse events. She will continue to be monitored. She will continue medical therapy with adjustment as needed. She will proceed with her right hip ORIF. She should have close monitoring her cardiac rate rhythm and blood pressure during and following the procedure. Attempt should be made to avoid excess volume overload during and after the procedure. Hopefully based upon what appears to be her stable clinical course and her most current left ventricular systolic function/LVEF estimates her risk for adverse cardiovascular events from noncardiac surgery will be kept at a minimum. Comment: The patient's case was discussed and reviewed with patient and Dr. Velez. This note was generated using a voice recognition system and there may be incorrect words, spelling or punctuation that were not noted when reviewing the office note prior to saving.
--- NOTE | 2018-10-11 11:28 | PN_ITS ---
<Ekta Toure - Last Filed: 10/11/18 11:46> Patient Problems: Active and Suspected Problems (Last Reviewed 10/10/18 @ 05:16 by Kael Stanley MD) Closed intertrochanteric fracture of right hip (Acute) Fall from slip, trip, or stumble (Acute) Warfarin-induced coagulopathy (Acute) Femoral fracture (Acute) Atrial fibrillation (Acute) Preoperative cardiovascular examination (Acute) Subjective: Patient seen and examined. Complains of significant discomfort right hip. RN made aware patient requesting PRN pain regimen. Patient denies other current complaints. - Physical Exam General: Alert, Oriented x3, Cooperative HEENT: Atraumatic, PERRLA, EOMI, Normocephalic Neck: Supple, No JVD, Negative Carotid Bruits Lungs: Clear to auscultation, Normal air movement Cardiovascular: - - Junctional rhythm, rate controlled, ++ murmur Abdomen: Bowel Sounds Present, Soft, Non Tender, Non-Distended Extremities: No clubbing, No cyanosis, No edema, Capillary Refill Less than 3 Seconds Skin: No rashes, No breakdown Musculoskeletal: Tenderness - Right hip Neurological: Cranial nerves II-XII grossly intact, Neuro grossly intact Psych/Mental Status: Normal Affect, Appropriate Vital Signs Temp Pulse Resp BP Pulse Ox 99.2 F H 81 20 H 124/70 H 96 10/11/18 08:55 10/11/18 08:55 10/11/18 08:55 10/11/18 08:55 10/11/18 08:55 Oxygen Delivery Method Room Air Weight: 123 lb 14.397 oz Body Mass Index (BMI) 22.6 Finger Stick Blood Glucose 109 Intake and Output for Last 24 Hours 10/09/18 10/10/18 10/11/18 23:59 23:59 23:59 Intake Total 250.3 / 250.3 261.7 / 261.7 Output Total 1800 / 1800 350 / 350 Balance -1549.7 / -1549.7 -88.3 / -88.3 Laboratory Tests Past 24 Hrs 10/10/18 10/10/18 10/11/18 14:00 20:07 01:20 WBC 8.9 RBC 3.87 L Hgb 10.9 L Hct 33.7 L MCV 87.1 MCH 28.2 MCHC 32.3 RDW 18.4 H RDW Differential 57.9 H Plt Count 258 MPV 10.1 Immature Gran % (Auto) 0.300 Neut % (Auto) 80.5 H Lymph % (Auto) 7.7 L [place] % (Auto) 11.0 H Eos % (Auto) 0.4 Baso % (Auto) 0.1 Absolute Neuts (auto) 7.2 Absolute Lymphs (auto) 0.69 L Total Counted Not Reportable PT INR APTT 116.2 H* 48.1 H Sodium Potassium Chloride Carbon Dioxide Anion Gap BUN Creatinine Estim Creat Clear Calc Est GFR (MDRD) Af Amer Est GFR (MDRD) Non-Af BUN/Creatinine Ratio Glucose Calcium Magnesium 10/11/18 10/11/18 10/11/18 01:20 01:20 01:20 WBC RBC Hgb Hct MCV MCH MCHC RDW RDW Differential Plt Count MPV Immature Gran % (Auto) Neut % (Auto) Lymph % (Auto) [place] % (Auto) Eos % (Auto) Baso % (Auto) Absolute Neuts (auto) Absolute Lymphs (auto) Total Counted PT 26.8 H INR 2.5 APTT 94.1 H* Sodium 133 L Potassium 4.7 Chloride 101 Carbon Dioxide 27.0 Anion Gap 5 BUN 28 H Creatinine 1.03 H Estim Creat Clear Calc 34.45 Est GFR (MDRD) Af Amer 66 Est GFR (MDRD) Non-Af 55 L BUN/Creatinine Ratio 27.2 H Glucose 147 H Calcium 9.1 Magnesium 2.4 10/11/18 07:17 WBC RBC Hgb Hct MCV MCH MCHC RDW RDW Differential Plt Count MPV Immature Gran % (Auto) Neut % (Auto) Lymph % (Auto) [place] % (Auto) Eos % (Auto) Baso % (Auto) Absolute Neuts (auto) Absolute Lymphs (auto) Total Counted PT INR APTT 55.8 H Sodium Potassium Chloride Carbon Dioxide Anion Gap BUN Creatinine Estim Creat Clear Calc Est GFR (MDRD) Af Amer Est GFR (MDRD) Non-Af BUN/Creatinine Ratio Glucose Calcium Magnesium POC Glucose 10/10/18 11:59 POC Glucose 145 H Medical Necessity - Tobacco Use Smoking Status: Never smoker Assessment/Plan All Active Problems (Last Reviewed 10/10/18 @ 05:16 by Kael Stanley MD) Closed intertrochanteric fracture of right hip (Acute) Fall from slip, trip, or stumble (Acute) Warfarin-induced coagulopathy (Acute) Femoral fracture (Acute) Atrial fibrillation (Acute) Preoperative cardiovascular examination (Acute) Slurred speech (Acute) Elevated troponin (Acute) CVA (cerebral vascular accident) (Acute) Shortness of breath (Acute) Abdominal pain (Acute) Acute respiratory failure (Acute) Acute on chronic systolic heart failure (Acute) Hypertensive urgency (Acute) Epistaxis (Acute) 1. Acute traumatic right intertrochanteric hip fracture- Dr. Ospina following. Plan for OR tomorrow for ORIF. PRN pain regimen. PT/OT following surgery. 2. Preoperative clearance, given cardiac history cardiology consult placed. Okay to proceed with surgery per cardiology. 3. Chronic systolic CHF/cardiomyopathy-echocardiogram completed 10/10/2018 which showed an EF of 45% improved from prior echo October 2017 which demonstrated an EF of 25 to 30%. Caution with IV fluids perioperatively/postoperatively. Continue Lasix, lisinopril, spironolactone regimen. 4. Valvular heart disease status post mechanical mitral valve replacement and tricuspid valve repair-on chronic anticoagulation with Coumadin, on hold. Bridge with IV heparin. 5. CAD-denies chest pain. Not on aspirin, statin or beta-lili. No known prior PCI. 6. Paroxysmal atrial fibrillation-Coumadin on hold. Not on rate control regimen. Currently junctional rhythm. 7. Hypertension-stable, continue home lisinopril, furosemide, start Aldactone regimen. 8. Hyperlipidemia-not on statin regimen. 9. Type 2 diabetes mellitus-diet controlled. 10. Liver cirrhosis-nonalcoholic fatty liver disease. 11. Suspected moderate protein calorie malnutrition-given cachectic appearance, muscle and fat loss. Nutrition consult placed. 12. Chronic normocytic anemia-at baseline. Trend CBC following surgery. DVT prophylaxis-heparin This patient was seen by MOLLY Gardiner under the supervision of Dr. Velez. <Addison Velez - Last Filed: 10/11/18 12:56> - Physical Exam Vital Signs Temp Pulse Resp BP Pulse Ox 99.2 F H 81 20 H 124/70 H 96 10/11/18 08:55 10/11/18 08:55 10/11/18 08:55 10/11/18 08:55 10/11/18 08:55 Oxygen Delivery Method Room Air Weight: 56.2 kg Body Mass Index (BMI) 22.6 Finger Stick Blood Glucose 109 Intake and Output for Last 24 Hours 10/09/18 10/10/18 10/11/18 23:59 23:59 23:59 Intake Total 250.3 / 250.3 261.7 / 261.7 Output Total 1800 / 1800 350 / 350 Balance -1549.7 / -1549.7 -88.3 / -88.3 Laboratory Tests Past 24 Hrs 10/10/18 10/10/18 10/11/18 14:00 20:07 01:20 WBC 8.9 RBC 3.87 L Hgb 10.9 L Hct 33.7 L MCV 87.1 MCH 28.2 MCHC 32.3 RDW 18.4 H RDW Differential 57.9 H Plt Count 258 MPV 10.1 Immature Gran % (Auto) 0.300 Neut % (Auto) 80.5 H Lymph % (Auto) 7.7 L [place] % (Auto) 11.0 H Eos % (Auto) 0.4 Baso % (Auto) 0.1 Absolute Neuts (auto) 7.2 Absolute Lymphs (auto) 0.69 L Total Counted Not Reportable PT INR APTT 116.2 H* 48.1 H Sodium Potassium Chloride Carbon Dioxide Anion Gap BUN Creatinine Estim Creat Clear Calc Est GFR (MDRD) Af Amer Est GFR (MDRD) Non-Af BUN/Creatinine Ratio Glucose Calcium Magnesium 10/11/18 10/11/18 10/11/18 01:20 01:20 01:20 WBC RBC Hgb Hct MCV MCH MCHC RDW RDW Differential Plt Count MPV Immature Gran % (Auto) Neut % (Auto) Lymph % (Auto) [place] % (Auto) Eos % (Auto) Baso % (Auto) Absolute Neuts (auto) Absolute Lymphs (auto) Total Counted PT 26.8 H INR 2.5 APTT 94.1 H* Sodium 133 L Potassium 4.7 Chloride 101 Carbon Dioxide 27.0 Anion Gap 5 BUN 28 H Creatinine 1.03 H Estim Creat Clear Calc 34.45 Est GFR (MDRD) Af Amer 66 Est GFR (MDRD) Non-Af 55 L BUN/Creatinine Ratio 27.2 H Glucose 147 H Calcium 9.1 Magnesium 2.4 10/11/18 07:17 WBC RBC Hgb Hct MCV MCH MCHC RDW RDW Differential Plt Count MPV Immature Gran % (Auto) Neut % (Auto) Lymph % (Auto) [place] % (Auto) Eos % (Auto) Baso % (Auto) Absolute Neuts (auto) Absolute Lymphs (auto) Total Counted PT INR APTT 55.8 H Sodium Potassium Chloride Carbon Dioxide Anion Gap BUN Creatinine Estim Creat Clear Calc Est GFR (MDRD) Af Amer Est GFR (MDRD) Non-Af BUN/Creatinine Ratio Glucose Calcium Magnesium Assessment/Plan This patient was seen in conjunction with MOLLY Gardiner . I have independently interviewed and examined the patient and reviewed pertinent historical, laboratory, and other data. Please refer to MOLLY Gardiner note for details of this patient's presentation, findings, and recommendations. I have reviewed MOLLY Gardiner note and concur with documented findings. In brief, Patient is an 78-year-old lady with multiple comorbidities including paroxysmal atrial fibrillation, mitral valve replacement, who presented to the emergency department following a fall imaging studies obtained in the ED demonstrated Acute comminuted displaced proximal femoral fracture following the right extremity 10/11/2018: Case was discussed with Dr. Ospina orthopedic surgeon assistant professor of economics recommended against giving patient vitamin K in view of her underlying mechanical valve and to allow her INR to trend down naturally while this patient is being bridged with systemic heparin ; And also had runs of nonsustained VT results of echo obtained on 10/10/2018 reviewed Physical Examination: GENERAL: cooperative HEENT: Atraumatic; moist oral mucosa EYES; Anicteric, Normal Conjunctiva NECK; supple, normal thyroid, RESPIRATORY: Diminished to auscultation bilaterally, CARDIOVASCULAR: Regular S1-S2 systolic click GI: soft, non-tender, normoactive bowel sounds, : No Renal angle tenderness; EXTREMITIES: No edema, no clubbing, MUSCULOSKELETAL: Right lower extremity immobilized NEURO: Awake; no lateralizing signs. SKIN: No Rash PSYCH;flat affect Assessment: 1. Acute comminuted displaced proximal femoral fracture involving the right lower extremity patient is been admitted to regular nursing floor. Currently management pain medication, immobilization and consultation placed to orthopedic surgery. Patient has history of mechanical valve and is on Coumadin. Coumadin was held subsequently started on heparin for bridging. EKG on admission demonstrated sinus rhythm. Echo obtained on 10/20/2017 demonstrated decreased ejection fraction of 25 to 30%.; Echo repeated on 10/10/2018 however demonstrated an ejection fraction of 45% Patient perioperative risk is estimated to be medium to high. Patient has been seen and followed by cardiology consultation was therefore placed. 2. Valvular heart disease: Patient has history of mitral valve replacement with [facility], tricuspid valve repair. Patient is on systemic anticoagulation with Coumadin INR on admission was 2.5 3. Paroxysmal atrial fibrillation in sinus rhythm on admission Coumadin on hold 4. Coronary artery disease with previous CABG 5. Chronic systolic congestive heart failure echo repeated on 10/10/2018 demonstrated an ejection fraction of 45% 6. 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 Diabetes mellitus type 2 managed with diet 8. Dyslipidemia 9. Hypertension blood pressure controlled 10. 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 DVT prophylaxis on Coumadin no need for additional measures Recommendations: 1. I have discussed the results of my overview and impressions with the patient 2. Options for management were reviewed Code Visit Inpatient E&M: 9[address] [facility] Hosp L3
[2018-10-11 13:31] LABS: Partial Thromboplast Time 46.2 Seconds (24.1-36.2)
[2018-10-11] MEDS: Amiodarone 200 MG Tablet PO ×2 (13:49→21:19)
[2018-10-11] MEDS: Heparin Injection (Vial) 5,000 UNIT/ML VIAL IV (13:49)
--- NOTE | 2018-10-11 16:14 | PCM.PN.ORT ---
Patient Problems: Active and Suspected Problems (Last Reviewed 10/10/18 @ 05:16 by Kael Stanley MD) Closed intertrochanteric fracture of right hip (Acute) Fall from slip, trip, or stumble (Acute) Warfarin-induced coagulopathy (Acute) Femoral fracture (Acute) Atrial fibrillation (Acute) Preoperative cardiovascular examination (Acute) Subjective: Patient resting comfortably, in no acute distress or pain. - Physical Exam General: Alert, Oriented x3, No apparent distress Extremities: No clubbing, No cyanosis, No edema, Capillary Refill Less than 3 Seconds, No Calf Tenderness, Tenderness - right hip with shortening and external rotation of RLE Vital Signs Temp Pulse Resp BP Pulse Ox 99.2 F H 90 20 H 124/70 H 96 10/11/18 08:55 10/11/18 14:51 10/11/18 08:55 10/11/18 08:55 10/11/18 08:55 Oxygen Delivery Method Room Air Weight: 123 lb 14.397 oz Body Mass Index (BMI) 22.6 Finger Stick Blood Glucose 109 Intake and Output for Last 24 Hours 10/09/18 10/10/18 10/11/18 23:59 23:59 23:59 Intake Total 250.3 / 250.3 528.0 / 528.0 Output Total 1800 / 1800 550 / 550 Balance -1549.7 / -1549.7 -22.0 / -22.0 Laboratory Tests Past 24 Hrs 10/10/18 10/11/18 10/11/18 20:07 01:20 01:20 WBC 8.9 RBC 3.87 L Hgb 10.9 L Hct 33.7 L MCV 87.1 MCH 28.2 MCHC 32.3 RDW 18.4 H RDW Differential 57.9 H Plt Count 258 MPV 10.1 Immature Gran % (Auto) 0.300 Neut % (Auto) 80.5 H Lymph % (Auto) 7.7 L [place] % (Auto) 11.0 H Eos % (Auto) 0.4 Baso % (Auto) 0.1 Absolute Neuts (auto) 7.2 Absolute Lymphs (auto) 0.69 L Total Counted Not Reportable PT 26.8 H INR 2.5 APTT 48.1 H Sodium Potassium Chloride Carbon Dioxide Anion Gap BUN Creatinine Estim Creat Clear Calc Est GFR (MDRD) Af Amer Est GFR (MDRD) Non-Af BUN/Creatinine Ratio Glucose Calcium Magnesium 10/11/18 10/11/18 10/11/18 01:20 01:20 07:17 WBC RBC Hgb Hct MCV MCH MCHC RDW RDW Differential Plt Count MPV Immature Gran % (Auto) Neut % (Auto) Lymph % (Auto) [place] % (Auto) Eos % (Auto) Baso % (Auto) Absolute Neuts (auto) Absolute Lymphs (auto) Total Counted PT INR APTT 94.1 H* 55.8 H Sodium 133 L Potassium 4.7 Chloride 101 Carbon Dioxide 27.0 Anion Gap 5 BUN 28 H Creatinine 1.03 H Estim Creat Clear Calc 34.45 Est GFR (MDRD) Af Amer 66 Est GFR (MDRD) Non-Af 55 L BUN/Creatinine Ratio 27.2 H Glucose 147 H Calcium 9.1 Magnesium 2.4 10/11/18 13:15 WBC RBC Hgb Hct MCV MCH MCHC RDW RDW Differential Plt Count MPV Immature Gran % (Auto) Neut % (Auto) Lymph % (Auto) [place] % (Auto) Eos % (Auto) Baso % (Auto) Absolute Neuts (auto) Absolute Lymphs (auto) Total Counted PT INR APTT 46.2 H Sodium Potassium Chloride Carbon Dioxide Anion Gap BUN Creatinine Estim Creat Clear Calc Est GFR (MDRD) Af Amer Est GFR (MDRD) Non-Af BUN/Creatinine Ratio Glucose Calcium Magnesium Medical Necessity - Tobacco Use Smoking Status: Never smoker Assessment/Plan All Active Problems (Last Reviewed 10/10/18 @ 05:16 by Kael Stanley MD) Closed intertrochanteric fracture of right hip (Acute) Fall from slip, trip, or stumble (Acute) Warfarin-induced coagulopathy (Acute) Femoral fracture (Acute) Atrial fibrillation (Acute) Preoperative cardiovascular examination (Acute) Slurred speech (Acute) Elevated troponin (Acute) CVA (cerebral vascular accident) (Acute) Shortness of breath (Acute) Abdominal pain (Acute) Acute respiratory failure (Acute) Acute on chronic systolic heart failure (Acute) Hypertensive urgency (Acute) Epistaxis (Acute) Right intertrochanteric hip fx Will proceed to surgery tomorrow for ORIF if INR is acceptable. Would like to see INR 1.5 or less. Reviewed plan with family members who were at bedside today.
[2018-10-11 19:56] LABS: Partial Thromboplast Time 58.9 Seconds (24.1-36.2)
[2018-10-11] MEDS: HEPARIN/D5w 25,000 UNITS 25,000 UNITS/250 ML IV.SOLN. 8 UNITS IV (20:35)
[2018-10-12] VITALS (27 sets, daily range): BP systolic 96–143; BP diastolic 48–97; PULSE 72–94; RESP 16–18; TEMP 36.4–37.7; O2SAT 91–100; BMI 22.7
[2018-10-12 02:25] LABS: Absolute Lymphocyte Count 0.89 X10^3/ul (0.83-4.51); Absolute Neutrophil Count 7.2 X10^3/uL (2.0-7.7); Basophil# 0.02 X10^3/uL; Basophil% 0.2 % (0-1); Eosinophil# 0.09 X10^3/uL; Hematocrit 31.5 % (37-47); Hemoglobin 10.3 g/dl (12.0-15.0); Lymphocyte # 0.89 X10^3/ul (4.0); Lymphocyte % 9.4 % (19-41); Mean Corp Hgb Conc 32.7 g/gl (32-36); Mean Corpuscular Hgb 28.4 pg (27.0-32.0); Mean Corpuscular Volume 86.8 fL (81-99); Mean Platelet Vol. 9.7 fl (6.2-12.0); Monocyte# 1.25 X10^3/uL; Monocyte% 13.2 % (0-10); Neutrophil # 7.18 X10^3/uL (2.7-7.7); Neutrophil % 75.8 % (47-70); Platelet Count 240 K/mm3 (150-450); RBC Distribution Width CV 18.8 % (11.6-14.6); Red Blood Count 3.63 M/mm3 (4.2-5.4); White Blood Count 9.5 K/mm3 (4.4-11.0)
[2018-10-12 02:28] LABS: International Normalized Ratio 2.8; Prothrombin Time (Protime)PT. 29.7 SECONDS (11.7-14.9)
[2018-10-12 02:29] LABS: Partial Thromboplast Time 57.9 Seconds (24.1-36.2)
[2018-10-12 02:32] LABS: BUN 38 mg/dL (7-18); Creatinine, Serum 1.18 mg/dL (0.55-1.02); EST Glomerular Filtration Rate 47 mL/min (>60); Estimated Creatinine Clearance 30.07 ml/min; Glucose 139 mg/dL (74-106)
[2018-10-12 02:33] LABS: Anion Gap 6 (5-15); BUN/Creat Ratio 32.2 RATIO (10-20); Chloride 101 mmol/L (98-107); Est Glom Filt Rate - Afr Amer 57 mL/min (>60); Potassium 4.6 mmol/L (3.5-5.1); Sodium Level 132 mmol/L (136-145)
[2018-10-12 02:40] LABS: POSITIVE COUNT NO; POSITIVE DIFFERENTIAL NO; POSITIVE MORPHOLOGY NO
[2018-10-12] MEDS: Amiodarone 200 MG Tablet PO ×2 (05:55→21:59)
[2018-10-12] MEDS: oxyCODONE 5 MG Tablet PO ×2 (05:58→22:20)
[2018-10-12 08:30] LABS: Partial Thromboplast Time 61.2 Seconds (24.1-36.2)
[2018-10-12] MEDS: Phytonadione (Vit K) 10 MG/ML Ampul PO (09:50)
[2018-10-12] MEDS: Spironolactone 25 MG Tablet PO (09:51)
[2018-10-12] MEDS: Furosemide 40 MG Tablet PO ×2 (09:51→22:00)
[2018-10-12] MEDS: Lisinopril 2.5 MG Tablet PO ×2 (09:51→22:01)
--- NOTE | 2018-10-12 10:51 | CASEMGMT ---
SW spoke w/pt in room in regard to discharge plan. Pt is to have surgery today, and she has not thought much yet about the plan after that. SW spoke w/pt about going somewhere for rehab vs. going home. Pt would prefer to go home if possible, lives home with and son. Pt has been to [facility] in the past. SW spoke w/pt about if rehab needed, would she want to consider [facility] again, also educated pt about TCU here at [facility]. Pt seems open to either place should it be needed. SW called [facility], they do not take pt's insurance. SW did call TCU, put pt on the TCU list. SW spoke again w/pt and now daughter in law in room again in regard to discharge plan. SW explained that [facility] does not take pt's insurance, where pt had been prior. Daughter in law states pt had been at [facility], and pt did not like it. Daughter in law asked about TCU, states pt has been there before. MILENA explained that yes, TCU would be an option and SW had spoken to pt about it earlier. SW let pt and daughter in law know that SW put pt's name on the TCU list already. SW checked w/pt and confirmed that if rehab is needed somewhere, she would prefer TCU. MILENA will follow up after surgery and PT/OT to confirm that this is still the appropriate level of care, and will then speak to Gilma about starting precert. MILENA will continue to follow. CLAUDE Rodriguez
--- NOTE | 2018-10-12 12:56 | PCM.PN.CARD ---
Subjectve: The patient is awake and alert. She denies any acute symptoms. Objective: Vital Signs Temp Pulse Resp BP Pulse Ox 98.2 F 72 18 126/58 H 95 10/12/18 12:30 10/12/18 12:30 10/12/18 12:30 10/12/18 12:30 10/12/18 12:30 Oxygen Delivery Method Room Air Weight: 123 lb 14.397 oz Body Mass Index (BMI) 22.6 Finger Stick Blood Glucose 109 Intake and Output for Last 24 Hours 10/10/18 10/11/18 10/12/18 23:59 23:59 23:59 Intake Total 250.3 / 250.3 822.7 / 822.7 621.8 / 621.8 Output Total 1800 / 1800 1000 / 1000 450 / 450 Balance -1549.7 / -1549.7 -177.3 / -177.3 171.8 / 171.8 General: Awake, Alert, Oriented x 3, Cooperative, No Acute Distress HEENT: Atraumatic, Normocephalic, PERRL, EOMI, Sclera Non Icteric Oral: Moist Mucosa Neck: Supple, Good ROM, No JVD Lungs: Clear to auscultation Cardiovascular: Irregular Rhythm, Normal S2, [place] Prosthetic S1 Murmur Murmur: Grade 2/6, Mid Systolic, LLSB, [place], LVOT Abdomen: Bowel Sounds Present, Soft, Non Tender Extremities: No edema Neurological: No Focal Motor or Sensory Deficit Psych/Mental Status: Appropriate 10/11/18 13:15: APTT 46.2 H 10/11/18 19:25: APTT 58.9 H 10/12/18 02:00: WBC 9.5, RBC 3.63 L, Hgb 10.3 L, Hct 31.5 L, MCV 86.8, MCH 28.4, MCHC 32.7, RDW 18.8 H, RDW Differential 60.0 H, Plt Count 240, MPV 9.7, Immature Gran % (Auto) 0.400, Neut % (Auto) 75.8 H, Lymph % (Auto) 9.4 L, [place] % (Auto) 13.2 H, Eos % (Auto) 1.0, Baso % (Auto) 0.2, Absolute Neuts (auto) 7.2, Total Counted Not Reportable 10/12/18 02:00: Sodium 132 L, Potassium 4.6, Chloride 101, Carbon Dioxide 25.0, Anion Gap 6, BUN 38 H, Creatinine 1.18 H, Est GFR (MDRD) Af Amer 57 L, Est GFR (MDRD) Non-Af 47 L, BUN/Creatinine Ratio 32.2 H, Glucose 139 H, Calcium 9.0 10/12/18 02:00: PT 29.7 H, INR 2.8, APTT 57.9 H 10/12/18 07:58: APTT 61.2 H Rhythm: Episodes of atrial fibrillation; episodes appearing compatible with an accelerated junctional rhythm; episodes of PVCs Medical Necessity - Tobacco Use Smoking Status: Never smoker Assessment/Plan 1. Atrial fibrillation/Nonsustained wide-complex tachycardia The patient has a history of atrial fibrillation. She has been on medical management which has included anticoagulation. The present time her rate and rhythm will be followed. Based upon her rhythm changes noted she will be started on additional medical therapy with antiarrhythmic therapy with amiodarone. The patient will need to continue anticoagulant therapy for her multiple cardiovascular issues. At this point in time noting her warfarin therapy will be interrupted for her orthopedic surgery she can receive bridging anticoagulant therapy with agents such as IV heparin. 2. CAD The patient has a history of CAD. Is been thought to be non-angiographically significant. She has had no acute symptoms. She will need to continue risk factor modification medical therapy as tolerated. 3. Valvular heart disease status post mechanical mitral valve replacement and status post tricuspid valve repair The patient has continue with [facility] antibiotic prophylaxis therapy and anticoagulant therapy. She has been on warfarin. At the present time she will continue to be followed. Her repeat transthoracic echocardiogram demonstrates her estimated LVEF to be 45%. Her medications will be adjusted to allow for intermittent interruption of her warfarin therapy with bridging anticoagulant therapy and is around the time of her noncardiac surgical procedure. 4. Cardiomyopathy The patient has a history of a non-CAD related cardia myopathy. She has had waxing and waning left ventricular systolic function/LVEF. Based upon her echocardiogram her estimated LVEF was approximately 45%. At the moment she appears to be without acute symptoms. She will need to continue medical management. 5. Chronic systolic CHF Again she is without any acute symptoms at this time. She will continue to be followed. She will continue medical management. 6. Hyperlipidemia She will continue medical therapy as deemed appropriate. 7. Hypertension She will continue antihypertensive therapy with adjustment as needed. 8. Diabetes mellitus She will continue under the care of internal medicine. 9. Long-term anticoagulant therapy Again she will have her oral anticoagulant therapy interrupted. She will continue with bridging anticoagulant therapy with IV heparin. 10. Right hip fracture/preoperative cardiovascular assessment At the present time she appears to be without any acute cardiovascular symptoms or adverse events. She will continue to be monitored. She will continue medical therapy with adjustment as needed. She will proceed with her right hip ORIF. She should have close monitoring her cardiac rate rhythm and blood pressure during and following the procedure. Attempt should be made to avoid excess volume overload during and after the procedure. She will have IV heparin as bridging anticoagulant therapy. Hopefully based upon what appears to be her stable clinical course and her most current left ventricular systolic function/LVEF estimates her risk for adverse cardiovascular events from noncardiac surgery will be kept at a minimum. Comment: The patient's case was discussed and reviewed with patient and Dr. Jacques. This note was generated using a voice recognition system and there may be incorrect words, spelling or punctuation that were not noted when reviewing the office note prior to saving.
[2018-10-12 15:26] LABS: International Normalized Ratio 1.5; Prothrombin Time (Protime)PT. 18.3 SECONDS (11.7-14.9)
--- NOTE | 2018-10-12 16:36 | RAD_ITS ---
STUDY: X-RAY - PELVIS AND RIGHT HIP REASON FOR EXAM: Female, 78 years old. Gamma nail TECHNIQUE: Multiple views of the pelvis and hip. COMPARISON: X-ray right hip October 09, 2018 FINDINGS: Multiple fluoroscopic views of the right proximal femur demonstrate successful placement of intramedullary leslie with intertrochanteric screw. There is no evidence of complication. RAD/Hip Min 2 Views (Portable) IMPRESSION: Internal fixation of proximal femur fracture. Electronically Signed: Tr Balbuena, at 17:50 EDT Tel , Service support ,
--- NOTE | 2018-10-12 17:26 | PCM.OPRPT ---
Report of Operation Date of Procedure: 10/12/18 Pre-Operative Diagnosis: Comminuted, intertrochanteric fracture right hip Post-Operative Diagnosis: same Surgery/Procedure Performed:: ORIF right hip Description of Surgical Findings:: Primary Surgeon/Physician: Dion Ospina police chief deputy: Davin Walker PA-C police chief deputy: Pre-Operative Diagnosis: Comminuted intertrochanteric fracture right hip Post-Operative Diagnosis: same Surgery/Procedure Performed: ORIF right hip Estimated Blood Loss: 25cc Specimen's Removed: none Type of Anesthesia: general ASA Class: 3 Implants: [place] Gamma nail 125 degree, 95 mm lag screw, 42.5 mm distal locking screw Procedure Description: The patient was greeted in the preoperative area. The [right ] lower extremity was marked with surgical marker. Preoperative antibiotics were administered. The patient was then placed in supine position on a fracture table, a padded perineal post was utilized, all bony prominences were well-padded. Patient's leg was then secured in the fracture leg fernandez and the well leg was placed in the well-leg fernandez both were well-padded. Closed reduction maneuver was then performed under biplanar fluoroscopic imaging. Once anatomic alignment of the fracture was confirmed the leg was prepped and draped in usual sterile fashion. Surgical timeout was performed and surgery was commenced. Fluoroscopic imaging was used to identify the tip of the greater trochanter. A 3 cm incision was then made 3 cm above the tip of the greater trochanter and a guidepin was then placed at the junction of the anterior one third and posterior two thirds of the greater trochanter. This was then placed intramedullary. an opening reamer was then used and a ball-tipped guidewire was then placed to the superior pole of the patella and measured. Sequential reaming was then commenced over the ball-tipped guidewire to the appropriate diameter and where chatter was identified. Appropriate size Gamma nail was then placed on the guide handle on the operating table and confirmed to be appropriately placed. This was then inserted into the body over the ball-tipped guidewire to the appropriate depth. A stab incision was then made on lateral aspect of the thigh for placement of the lag screw which was then placed in center-center position confirmed in both AP and lateral. This was then measured. A derotational step drill was then used and a derotation bar was then placed. Lag screw reamer was then used over the guidepin and the lag screw was then placed into subchondral bone with tip to apex distance less than 25 mm on both the AP and lateral. The insertion handle was then removed after the compression screw was applied. Attention was then turned to the distal fixation. The distal guide hole of the [employer] guide was employed. A 42.5 mm distal locking screw was then placed. The wounds were then irrigated with copious irrigation and closed in layers with 2-0 Vicryl and surgical neil. A well-padded nonadherent dressing is applied patient was taken to recovery room in stable condition. My graduate assistant, Mr. Walker, provided a vital role in the completion of this procedure. He assisted in positioning the patient. He provided retraction of soft tissue to facilitate visualization during the procedure. He closed the operative wound and applied the sterile postop dressing. Postoperatively patient may be weightbearing as tolerated without restrictions police chief deputy: Clayton Walker Type of Anesthesia:: General Anesthesiologist: Grady Brink - Admit VTE Documentation VTE Present on Admission: No VTE Mechan Device Prophylaxis: SCD's, Thigh High JOSE MARTIN Hose VTE Pharm Prophylaxis ordered?: Yes
--- NOTE | 2018-10-12 19:33 | PN_ITS ---
Patient Problems: Active and Suspected Problems (Last Reviewed 10/10/18 @ 05:16 by Kael Stanley MD) Closed intertrochanteric fracture of right hip (Acute) Fall from slip, trip, or stumble (Acute) Warfarin-induced coagulopathy (Acute) Femoral fracture (Acute) Preoperative cardiovascular examination (Acute) Subjective: Seen and examined today, her INR this morning was 2.8. I discussed her care with cardiology today, since the patient has not been able to undergo surgery for her right hip fracture, I decided to give the patient fresh frozen plasma and vitamin K and the patient underwent surgery today and had a intramedullary nail inserted to repair her right hip fracture. Orthopedic surgery requested the patient's heparin drip be held for now, I will repeat her coagulation studies tomorrow. - Physical Exam General: Alert, Oriented x3, Cooperative, No apparent distress, Well developed HEENT: Atraumatic, PERRLA, EOMI, Normocephalic Oral: Moist Mucosa Neck: Supple, No JVD, Negative Carotid Bruits Lungs: Clear to auscultation, Normal air movement, No rhonchi, No wheeze, No rales Cardiovascular: PMI Normal, Irregular Rate, No rub noted Abdomen: Bowel Sounds Present, Soft, Non Tender, Non-Distended, No hernias noted Extremities: No clubbing, No cyanosis, No edema, Capillary Refill Less than 3 Seconds Skin: No rashes, No breakdown Neurological: Cranial nerves II-XII grossly intact, Neuro grossly intact, Sensory exam intact to light touch and pain Psych/Mental Status: Normal Affect, Appropriate, Alert and oriented to time, place, person, mood and affect Vital Signs Temp Pulse Resp BP Pulse Ox 99.6 F H 79 16 135/54 H 99 10/12/18 19:00 10/12/18 19:00 10/12/18 19:00 10/12/18 19:00 10/12/18 19:00 Oxygen Flow Rate (L/min) 2 Oxygen Delivery Method Nasal Cannula Weight: 56.2 kg Body Mass Index (BMI) 22.6 Finger Stick Blood Glucose 109 Intake and Output for Last 24 Hours 10/10/18 10/11/18 10/12/18 23:59 23:59 23:59 Intake Total 250.3 / 250.3 822.7 / 822.7 2121.8 / 2121.8 Output Total 1800 / 1800 1000 / 1000 850 / 850 Balance -1549.7 / -1549.7 -177.3 / -177.3 1271.8 / 1271.8 Laboratory Tests Past 24 Hrs 10/11/18 10/12/18 10/12/18 19:25 02:00 02:00 WBC 9.5 RBC 3.63 L Hgb 10.3 L Hct 31.5 L MCV 86.8 MCH 28.4 MCHC 32.7 RDW 18.8 H RDW Differential 60.0 H Plt Count 240 MPV 9.7 Immature Gran % (Auto) 0.400 Neut % (Auto) 75.8 H Lymph % (Auto) 9.4 L [place] % (Auto) 13.2 H Eos % (Auto) 1.0 Baso % (Auto) 0.2 Absolute Neuts (auto) 7.2 Absolute Lymphs (auto) 0.89 Total Counted Not Reportable PT INR APTT 58.9 H Sodium 132 L Potassium 4.6 Chloride 101 Carbon Dioxide 25.0 Anion Gap 6 BUN 38 H Creatinine 1.18 H Estim Creat Clear Calc 30.07 Est GFR (MDRD) Af Amer 57 L Est GFR (MDRD) Non-Af 47 L BUN/Creatinine Ratio 32.2 H Glucose 139 H Calcium 9.0 Blood Type Antibody Screen 10/12/18 10/12/18 10/12/18 02:00 02:00 07:58 WBC RBC Hgb Hct MCV MCH MCHC RDW RDW Differential Plt Count MPV Immature Gran % (Auto) Neut % (Auto) Lymph % (Auto) [place] % (Auto) Eos % (Auto) Baso % (Auto) Absolute Neuts (auto) Absolute Lymphs (auto) Total Counted PT 29.7 H INR 2.8 APTT 57.9 H 61.2 H Sodium Potassium Chloride Carbon Dioxide Anion Gap BUN Creatinine Estim Creat Clear Calc Est GFR (MDRD) Af Amer Est GFR (MDRD) Non-Af BUN/Creatinine Ratio Glucose Calcium Blood Type A POSITIVE Antibody Screen NEGATIVE 10/12/18 15:00 WBC RBC Hgb Hct MCV MCH MCHC RDW RDW Differential Plt Count MPV Immature Gran % (Auto) Neut % (Auto) Lymph % (Auto) [place] % (Auto) Eos % (Auto) Baso % (Auto) Absolute Neuts (auto) Absolute Lymphs (auto) Total Counted PT 18.3 H INR 1.5 APTT Sodium Potassium Chloride Carbon Dioxide Anion Gap BUN Creatinine Estim Creat Clear Calc Est GFR (MDRD) Af Amer Est GFR (MDRD) Non-Af BUN/Creatinine Ratio Glucose Calcium Blood Type Antibody Screen Medical Necessity - Tobacco Use Smoking Status: Never smoker Assessment/Plan All Active Problems (Last Reviewed 10/10/18 @ 05:16 by Kael Stanley MD) Closed intertrochanteric fracture of right hip (Acute) Fall from slip, trip, or stumble (Acute) Warfarin-induced coagulopathy (Acute) Femoral fracture (Acute) Preoperative cardiovascular examination (Acute) Slurred speech (Resolved) Elevated troponin (Resolved) CVA (cerebral vascular accident) (Resolved) Shortness of breath (Resolved) Abdominal pain (Resolved) Acute respiratory failure (Resolved) Acute on chronic systolic heart failure (Resolved) Hypertensive urgency (Resolved) Epistaxis (Resolved) #1 right intertrochanteric fracture-status post ORIF with gamma nail postop day 0-patient will need PT and OT, she may need placement in a retirement facility #2 chronic atrial fib #3 nonischemic cardiomyopathy-EF 45% #4 chronic anticoagulation due to mechanical mitral valve-heparin will be held at this time, INR be rechecked tomorrow #5 coronary artery disease Code Visit Inpatient E&M: 14418 Subs Hosp L2
[2018-10-12] MEDS: 0.9% Normal Saline 1,000 ML 80 ML IV (20:04)
[2018-10-12] MEDS: Morphine 2 MG/ML Syringe IV (20:06)
[2018-10-12] MEDS: Ondansetron 4 MG/2 ML Vial IV (20:06)
[2018-10-12] MEDS: Senna/Docusate Sodium 1 Tablet PO (22:01)
[2018-10-12] MEDS: Cefazolin 1 GM/50 ML BAG IV (22:11)
[2018-10-13] VITALS (20 sets, daily range): BP systolic 104–125; BP diastolic 47–79; PULSE 65–90; RESP 14–20; TEMP 36.6–37.4; O2SAT 97–100
[2018-10-13] MEDS: Cefazolin 1 GM/50 ML BAG IV (05:26)
[2018-10-13] MEDS: Amiodarone 200 MG Tablet PO ×3 (05:29→21:41)
[2018-10-13 07:21] LABS: Absolute Lymphocyte Count 0.57 X10^3/ul (0.83-4.51); Absolute Neutrophil Count 5.4 X10^3/uL (2.0-7.7); Differential Indicated SCAN CRITERIA MET; Eosinophil# 0.03 X10^3/uL; Eosinophils% 0.4 % (0-5); Hematocrit 22.4 % (37-47); Hemoglobin 7.2 g/dl (12.0-15.0); Lymphocyte # 0.57 X10^3/ul (4.0); Lymphocyte % 7.9 % (19-41); Mean Corp Hgb Conc 32.1 g/gl (32-36); Mean Corpuscular Hgb 28.3 pg (27.0-32.0); Mean Corpuscular Volume 88.2 fL (81-99); Monocyte# 1.21 X10^3/uL; Monocyte% 16.9 % (0-10); Neutrophil # 5.35 X10^3/uL (2.7-7.7); Neutrophil % 74.5 % (47-70); POSITIVE COUNT NO; POSITIVE DIFFERENTIAL YES; POSITIVE MORPHOLOGY NO; Platelet Count 213 K/mm3 (150-450); RBC Distribution Width CV 19.4 % (11.6-14.6); RBC Distribution Width SD 62.1 fl (35.1-43.9); Red Blood Count 2.54 M/mm3 (4.2-5.4); White Blood Count 7.2 K/mm3 (4.4-11.0)
[2018-10-13 07:33] LABS: Anion Gap 5 (5-15); BUN 37 mg/dL (7-18); BUN/Creat Ratio 35.9 RATIO (10-20); Calcium,Total 8.3 mg/dL (8.5-10.1); Chloride 105 mmol/L (98-107); Creatinine, Serum 1.03 mg/dL (0.55-1.02); EST Glomerular Filtration Rate 55 mL/min (>60); Est Glom Filt Rate - Afr Amer 66 mL/min (>60); Estimated Creatinine Clearance 34.45 ml/min; Glucose 128 mg/dL (74-106); Potassium 4.4 mmol/L (3.5-5.1); Sodium Level 136 mmol/L (136-145)
[2018-10-13] MEDS: 0.9% Normal Saline 1,000 ML 80 ML IV (07:42)
--- NOTE | 2018-10-13 08:18 | PN.ORTHO_ITS ---
Patient Problems: Active and Suspected Problems (Last Reviewed 10/10/18 @ 05:16 by Kael Stanley MD) Closed intertrochanteric fracture of right hip (Acute) Fall from slip, trip, or stumble (Acute) Warfarin-induced coagulopathy (Acute) Femoral fracture (Acute) Preoperative cardiovascular examination (Acute) Subjective: Patient sitting up in bed, pain well managed. Nursing at her bedside. Patient denies chest pain, shortness of breath, calf pain, nausea vomiting. Objective: Dressings clean dry intact. Negative signs or symptoms of DVT. Vital signs and labs were all reviewed noted medical record. Patient is afebrile, neurovascular is otherwise intact. Patient does have some diffuse swelling of the right thigh with some mild tenderness she has minimal flexion extension of the knee without discomfort. Patient in no respiratory distress, speaking in full sentences - Physical Exam General: Alert, Oriented x3, Cooperative HEENT: PERRLA Neurological: Cranial nerves II-XII grossly intact Psych/Mental Status: Normal Affect, Alert and oriented to time, place, person, mood and affect Vital Signs Temp Pulse Resp BP Pulse Ox 97.9 F 90 16 104/51 L 98 10/13/18 02:48 10/13/18 07:43 10/13/18 02:48 10/13/18 02:48 10/13/18 02:48 Oxygen Flow Rate (L/min) 2 Oxygen Delivery Method Nasal Cannula Weight: 56.2 kg Body Mass Index (BMI) 22.6 Finger Stick Blood Glucose 109 Intake and Output for Last 24 Hours 10/11/18 10/12/18 10/13/18 23:59 23:59 23:59 Intake Total 822.7 / 822.7 2121.8 / 2566.8 1585 / 1585 Output Total 1000 / 1000 850 / 1050 550 / 550 Balance -177.3 / -177.3 1271.8 / 1516.8 1035 / 1035 Laboratory Tests Past 24 Hrs 10/12/18 10/12/18 10/13/18 07:58 15:00 06:36 WBC 7.2 RBC 2.54 L Hgb 7.2 L Hct 22.4 L MCV 88.2 MCH 28.3 MCHC 32.1 RDW 19.4 H RDW Differential 62.1 H Plt Count 213 MPV 10.0 Immature Gran % (Auto) 0.300 Neut % (Auto) 74.5 H Lymph % (Auto) 7.9 L [place] % (Auto) 16.9 H Eos % (Auto) 0.4 Baso % (Auto) 0.0 Absolute Neuts (auto) 5.4 Absolute Lymphs (auto) 0.57 L Total Counted Pending PT 18.3 H INR 1.5 APTT 61.2 H Sodium Potassium Chloride Carbon Dioxide Anion Gap BUN Creatinine Estim Creat Clear Calc Est GFR (MDRD) Af Amer Est GFR (MDRD) Non-Af BUN/Creatinine Ratio Glucose Calcium 10/13/18 06:36 WBC RBC Hgb Hct MCV MCH MCHC RDW RDW Differential Plt Count MPV Immature Gran % (Auto) Neut % (Auto) Lymph % (Auto) [place] % (Auto) Eos % (Auto) Baso % (Auto) Absolute Neuts (auto) Absolute Lymphs (auto) Total Counted PT INR APTT Sodium 136 Potassium 4.4 Chloride 105 Carbon Dioxide 26.0 Anion Gap 5 BUN 37 H Creatinine 1.03 H Estim Creat Clear Calc 34.45 Est GFR (MDRD) Af Amer 66 Est GFR (MDRD) Non-Af 55 L BUN/Creatinine Ratio 35.9 H Glucose 128 H Calcium 8.3 L Medical Necessity - Tobacco Use Smoking Status: Never smoker Assessment/Plan All Active Problems (Last Reviewed 10/10/18 @ 05:16 by Kael Stanley MD) Closed intertrochanteric fracture of right hip (Acute) Fall from slip, trip, or stumble (Acute) Warfarin-induced coagulopathy (Acute) Femoral fracture (Acute) Preoperative cardiovascular examination (Acute) Slurred speech (Resolved) Elevated troponin (Resolved) CVA (cerebral vascular accident) (Resolved) Shortness of breath (Resolved) Abdominal pain (Resolved) Acute respiratory failure (Resolved) Acute on chronic systolic heart failure (Resolved) Hypertensive urgency (Resolved) Epistaxis (Resolved) Status post ORIF right hip fracture with gamma nail Plan 1. Continue all pain medications as prescribed 2. Begin physical therapy weight-bear toe-touch only with walker 3. Continue postop anticoagulation as directed by medicine 4. Encourage incentive spirometry 5. Medicine will continue to manage medically.
[2018-10-13] MEDS: oxyCODONE 5 MG Tablet PO ×3 (08:31→17:55)
[2018-10-13 09:05] LABS: Differential Comment SCANNED
[2018-10-13 09:32] LABS: International Normalized Ratio 1.6; Prothrombin Time (Protime)PT. 18.8 SECONDS (11.7-14.9)
[2018-10-13] MEDS: Senna/Docusate Sodium 1 Tablet PO ×2 (09:52→21:42)
[2018-10-13] MEDS: Spironolactone 25 MG Tablet PO (09:52)
[2018-10-13] MEDS: Furosemide 40 MG Tablet PO ×2 (09:52→21:41)
[2018-10-13] MEDS: Lisinopril 2.5 MG Tablet PO ×2 (09:53→21:42)
--- NOTE | 2018-10-13 10:09 | PN.CARD_ITS ---
<Siri Gutierrez M - Last Filed: 10/13/18 10:29> Subjectve: Pt is alert and awake. She denies any acute cardiac symptoms. Objective: Vital Signs Temp Pulse Resp BP Pulse Ox 99.4 F H 80 14 119/51 L 97 10/13/18 08:45 10/13/18 09:05 10/13/18 08:45 10/13/18 08:45 10/13/18 08:45 Oxygen Flow Rate (L/min) 2 Oxygen Delivery Method Room Air Weight: 123 lb 14.397 oz Body Mass Index (BMI) 22.6 Finger Stick Blood Glucose 109 Intake and Output for Last 24 Hours 10/11/18 10/12/18 10/13/18 23:59 23:59 23:59 Intake Total 822.7 / 822.7 2121.8 / 2566.8 1585 / 1585 Output Total 1000 / 1000 850 / 1050 550 / 550 Balance -177.3 / -177.3 1271.8 / 1516.8 1035 / 1035 General: Awake, Alert, Oriented x 3, Cooperative, No Acute Distress HEENT: Atraumatic, Normocephalic, PERRL, EOMI, Sclera Non Icteric Oral: Moist Mucosa Neck: Supple, Good ROM, No JVD Lungs: Clear to auscultation Cardiovascular: Irregular Rhythm, Normal S2, [place] Prosthetic S2 Murmur Murmur: Grade 2/6, Mid Systolic, LLSB, [place], LVOT Abdomen: Bowel Sounds Present, Soft, Non Tender Extremities: No edema Neurological: No Focal Motor or Sensory Deficit Psych/Mental Status: Appropriate 10/12/18 15:00: PT 18.3 H, INR 1.5 10/13/18 06:36: WBC 7.2, RBC 2.54 L, Hgb 7.2 L, Hct 22.4 L, MCV 88.2, MCH 28.3, MCHC 32.1, RDW 19.4 H, RDW Differential 62.1 H, Plt Count 213, MPV 10.0, Immature Gran % (Auto) 0.300, Neut % (Auto) 74.5 H, Lymph % (Auto) 7.9 L, [place] % (Auto) 16.9 H, Eos % (Auto) 0.4, Baso % (Auto) 0.0, Absolute Neuts (auto) 5.4, Total Counted Not Reportable 10/13/18 06:36: Sodium 136, Potassium 4.4, Chloride 105, Carbon Dioxide 26.0, Anion Gap 5, BUN 37 H, Creatinine 1.03 H, Est GFR (MDRD) Af Amer 66, Est GFR (MDRD) Non-Af 55 L, BUN/Creatinine Ratio 35.9 H, Glucose 128 H, Calcium 8.3 L 10/13/18 08:56: PT 18.8 H, INR 1.6 Rhythm: Medical Necessity - Tobacco Use Smoking Status: Never smoker Assessment/Plan 1. Atrial fibrillation/Nonsustained wide-complex tachycardia The patient has a history of atrial fibrillation. She has been on medical management which has included anticoagulation. This is currently on hold. It is noted that she is anemic post op. Would recommend blood transfusion, after this will re-evaluate when to resume her anticoagulation. The present time her rate and rhythm will be followed. This has been controlled. She was started on amiodarone during this hospital stay d/t wide complex tachycardia. 2. CAD The patient has a history of CAD. It has been thought to be non- angiographically significant. She continues with no acute symptoms. She will need to continue risk factor modification medical therapy as tolerated. 3. 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 She has been on warfarin. At the present time she will continue to be followed. Her repeat transthoracic echocardiogram demonstrates her estimated LVEF to be 45%. Her coumadin and heparin is on hold and she is on Heparin, it is noted that she is anemic post op. Would recommend a blood transfusion, after this will re- evaluate her anticoagulation. 4. Cardiomyopathy The patient has a history of a non-CAD related cardia myopathy. She has had waxing and waning left ventricular systolic function/LVEF. Based upon her echocardiogram her estimated LVEF was approximately 45%. At the moment she appears to be without acute symptoms. She will need to continue medical management. Will need to monitor volume status. 5. Chronic systolic CHF Again she is without any acute symptoms at this time. She will continue to be followed. She will continue medical management. 6. Hyperlipidemia She will continue medical therapy as deemed appropriate. 7. Hypertension She will continue antihypertensive therapy with adjustment as needed. 8. Diabetes mellitus She will continue under the care of internal medicine. 9. Long-term anticoagulant therapy Again, her coumadin and heparin are currently be ing held. It is noted that she is anemic. Would recommend a blood transfusion. After this will re-evaluate her anticoagulants. 10. Anemia: She is noted to be anemic post op, with her cardiac history, would recommend that blood transfusion be considered. This was discussed with Dr. Jacques. 11. Right hip fracture This is being managed by orthopedics. This patient was discussed with Dr. Harrison. <Harjit Harrison - Last Filed: 10/13/18 19:26> Objective: Vital Signs Temp Pulse Resp BP Pulse Ox 98.4 F 83 18 124/55 H 100 10/13/18 15:14 10/13/18 16:32 10/13/18 15:14 10/13/18 15:14 10/13/18 15:14 Oxygen Flow Rate (L/min) 2 Oxygen Delivery Method Nasal Cannula Weight: 123 lb 14.397 oz Body Mass Index (BMI) 22.6 Finger Stick Blood Glucose 109 Intake and Output for Last 24 Hours 10/11/18 10/12/18 10/13/18 23:59 23:59 23:59 Intake Total 822.7 / 822.7 2121.8 / 2566.8 2309 / 2309 Output Total 1000 / 1000 850 / 1050 1250 / 1250 Balance -177.3 / -177.3 1271.8 / 1516.8 1059 / 1059 10/13/18 06:36: WBC 7.2, RBC 2.54 L, Hgb 7.2 L, Hct 22.4 L, MCV 88.2, MCH 28.3, MCHC 32.1, RDW 19.4 H, RDW Differential 62.1 H, Plt Count 213, MPV 10.0, Immature Gran % (Auto) 0.300, Neut % (Auto) 74.5 H, Lymph % (Auto) 7.9 L, [place] % (Auto) 16.9 H, Eos % (Auto) 0.4, Baso % (Auto) 0.0, Absolute Neuts (auto) 5.4, Total Counted Not Reportable 10/13/18 06:36: Sodium 136, Potassium 4.4, Chloride 105, Carbon Dioxide 26.0, Anion Gap 5, BUN 37 H, Creatinine 1.03 H, Est GFR (MDRD) Af Amer 66, Est GFR (MDRD) Non-Af 55 L, BUN/Creatinine Ratio 35.9 H, Glucose 128 H, Calcium 8.3 L 10/13/18 08:56: PT 18.8 H, INR 1.6 Rhythm: EKG: ECHO: Stress Test: Cardiac Cath: PCI: CT Surgery: Holter monitor: EPS: PPM: CXR: Chest CT Scan: Assessment/Plan Addendum: The patient was independently evaluated/examined. The patient is now status post right hip ORIF. She is recuperating in the PCU. She denies any acute cardiovascular symptoms. She continues with an examination demonstrating her lungs to be clear to auscultation percussion bilaterally and her cardiovascular examination demonstrating an irregular rhythm with a crisp prosthetic S1 and normal S2 with a continued 2/6 to 3/6 systolic murmur at the lower left sternal border. Her laboratory studies were reviewed. Her H&H is low. She is receiving PRBC transfusion. At the present time she will continue to be monitored. She will continue to have laboratory follow-up. If her H&H remains low she should continue to receive PRBCs to augment her oxygen carrying capacity to assist with her underlying cardiovascular status. Once her hematologic issues are stable and when okay from a surgical standpoint she can resume anticoagulant therapy with IV heparin and subsequent oral warfarin/Coumadin. The patient's case has been discussed with both Dr. Valdez and SPEEDY Li. This note was generated using a voice recognition system and there may be incorrect words, spelling or punctuation that were not noted when reviewing the office note prior to saving.
[2018-10-13] MEDS: 0.9% NaCl Peripheral Flush Adult/Peds IV (12:44)
--- NOTE | 2018-10-13 20:29 | PN_ITS ---
Patient Problems: Active and Suspected Problems (Last Reviewed 10/10/18 @ 05:16 by Kael Stanley MD) Closed intertrochanteric fracture of right hip (Acute) Fall from slip, trip, or stumble (Acute) Warfarin-induced coagulopathy (Acute) Femoral fracture (Acute) Preoperative cardiovascular examination (Acute) Subjective: Patient was seen and examined today, she appears fatigued, she does not volume any chest pain or shortness of breath however. I discussed her care with cardiology today, cardiology requested the patient be given 1 unit of packed red blood cells and I agree that this is appropriate. Patient's hemoglobin this morning was 7.2. I discussed discharge planning with the patient and the patient's , I feel patient would benefit from inpatient rehab and the patient has agreed, she was at one time at [facility] and that is nearby her home, I told case management social worker that she would consent to short-term rehab services at [facility] and we will try to make arrangements. For now, patient will not be placed on heparin due to the fact she had significant bleeding with surgery yesterday and her hemoglobin is low. Patient CBC will be rechecked tomorrow. INR today was 1.6 - Physical Exam General: Alert, Oriented x3, Cooperative, No apparent distress, Well developed HEENT: Atraumatic, PERRLA, EOMI, Normocephalic Oral: Moist Mucosa Neck: Supple, No JVD, Trachea Midline, Thyroid Normal Size and Texture Lungs: Clear to auscultation, Normal air movement, No rhonchi, No wheeze, No rales Cardiovascular: No murmurs, PMI Normal, Irregular Rate, No rub noted Abdomen: Bowel Sounds Present, Soft, Non Tender Extremities: No edema, Capillary Refill Less than 3 Seconds Skin: No rashes, No breakdown Musculoskeletal: No Tenderness to Palpation of Joints or Extremities Neurological: Cranial nerves II-XII grossly intact, Neuro grossly intact, Sensory exam intact to light touch and pain Psych/Mental Status: Appropriate, Flat Affect, Alert and oriented to time, place, person, mood and affect Vital Signs Temp Pulse Resp BP Pulse Ox 98.4 F 83 18 124/55 H 100 10/13/18 15:14 10/13/18 16:32 10/13/18 15:14 10/13/18 15:14 10/13/18 15:14 Oxygen Flow Rate (L/min) 2 Oxygen Delivery Method Nasal Cannula Weight: 56.2 kg Body Mass Index (BMI) 22.6 Finger Stick Blood Glucose 109 Intake and Output for Last 24 Hours 10/11/18 10/12/18 10/13/18 23:59 23:59 23:59 Intake Total 822.7 / 822.7 2121.8 / 2566.8 2309 / 2309 Output Total 1000 / 1000 850 / 1050 1250 / 1250 Balance -177.3 / -177.3 1271.8 / 1516.8 1059 / 1059 Laboratory Tests Past 24 Hrs 10/12/18 10/13/18 10/13/18 02:00 06:36 06:36 WBC 7.2 RBC 2.54 L Hgb 7.2 L Hct 22.4 L MCV 88.2 MCH 28.3 MCHC 32.1 RDW 19.4 H RDW Differential 62.1 H Plt Count 213 MPV 10.0 Immature Gran % (Auto) 0.300 Neut % (Auto) 74.5 H Lymph % (Auto) 7.9 L [place] % (Auto) 16.9 H Eos % (Auto) 0.4 Baso % (Auto) 0.0 Absolute Neuts (auto) 5.4 Absolute Lymphs (auto) 0.57 L Total Counted Not Reportable Differential Comment SCANNED PT INR Sodium 136 Potassium 4.4 Chloride 105 Carbon Dioxide 26.0 Anion Gap 5 BUN 37 H Creatinine 1.03 H Estim Creat Clear Calc 34.45 Est GFR (MDRD) Af Amer 66 Est GFR (MDRD) Non-Af 55 L BUN/Creatinine Ratio 35.9 H Glucose 128 H Calcium 8.3 L Crossmatch See Detail 10/13/18 08:56 WBC RBC Hgb Hct MCV MCH MCHC RDW RDW Differential Plt Count MPV Immature Gran % (Auto) Neut % (Auto) Lymph % (Auto) [place] % (Auto) Eos % (Auto) Baso % (Auto) Absolute Neuts (auto) Absolute Lymphs (auto) Total Counted Differential Comment PT 18.8 H INR 1.6 Sodium Potassium Chloride Carbon Dioxide Anion Gap BUN Creatinine Estim Creat Clear Calc Est GFR (MDRD) Af Amer Est GFR (MDRD) Non-Af BUN/Creatinine Ratio Glucose Calcium Crossmatch Medical Necessity - Tobacco Use Smoking Status: Never smoker Assessment/Plan All Active Problems (Last Reviewed 10/10/18 @ 05:16 by Kael Stanley MD) Closed intertrochanteric fracture of right hip (Acute) Fall from slip, trip, or stumble (Acute) Warfarin-induced coagulopathy (Acute) Femoral fracture (Acute) Preoperative cardiovascular examination (Acute) Slurred speech (Resolved) Elevated troponin (Resolved) CVA (cerebral vascular accident) (Resolved) Shortness of breath (Resolved) Abdominal pain (Resolved) Acute respiratory failure (Resolved) Acute on chronic systolic heart failure (Resolved) Hypertensive urgency (Resolved) Epistaxis (Resolved) #1 right intertrochanteric fracture-status post ORIF with gamma nail postop day 1-patient continue PT and OT, she will need placement in a correction facility, case management social worker has been notified #2 chronic atrial fib #3 nonischemic cardiomyopathy-EF 45% #4 chronic anticoagulation due to mechanical mitral valve-heparin will be held at this time, INR be rechecked tomorrow #5 coronary artery disease Code Visit Inpatient E&M: 63099 Subs Hosp L2
[2018-10-14] VITALS (17 sets, daily range): BP systolic 110–130; BP diastolic 42–57; PULSE 72–84; RESP 14–18; TEMP 36.7–37; O2SAT 94–98
[2018-10-14] MEDS: oxyCODONE 5 MG Tablet PO ×3 (04:03→13:46)
[2018-10-14 06:39] LABS: Absolute Lymphocyte Count 0.84 X10^3/ul (0.83-4.51); Absolute Neutrophil Count 5.9 X10^3/uL (2.0-7.7); Basophil# 0.01 X10^3/uL; Basophil% 0.1 % (0-1); Eosinophils% 1.2 % (0-5); Hematocrit 26.1 % (37-47); Hemoglobin 8.3 g/dl (12.0-15.0); International Normalized Ratio 1.6; Lymphocyte # 0.84 X10^3/ul (4.0); Lymphocyte % 10.5 % (19-41); Mean Corp Hgb Conc 31.8 g/gl (32-36); Mean Corpuscular Hgb 28.4 pg (27.0-32.0); Mean Corpuscular Volume 89.4 fL (81-99); Mean Platelet Vol. 10.1 fl (6.2-12.0); Monocyte# 1.12 X10^3/uL; Monocyte% 13.9 % (0-10); Neutrophil # 5.93 X10^3/uL (2.7-7.7); Neutrophil % 73.9 % (47-70); Platelet Count 235 K/mm3 (150-450); Prothrombin Time (Protime)PT. 18.5 SECONDS (11.7-14.9); RBC Distribution Width CV 18.2 % (11.6-14.6); RBC Distribution Width SD 57.1 fl (35.1-43.9); Red Blood Count 2.92 M/mm3 (4.2-5.4)
[2018-10-14 06:40] LABS: POSITIVE COUNT NO; POSITIVE DIFFERENTIAL NO; POSITIVE MORPHOLOGY NO
[2018-10-14] MEDS: Amiodarone 200 MG Tablet PO ×3 (06:52→20:59)
[2018-10-14] MEDS: Spironolactone 25 MG Tablet PO (09:45)
[2018-10-14] MEDS: Furosemide 40 MG Tablet PO ×2 (09:45→21:00)
[2018-10-14] MEDS: Senna/Docusate Sodium 1 Tablet PO ×2 (09:51→20:59)
--- NOTE | 2018-10-14 09:58 | PCM.PN.CARD ---
<Siri Gutierrez M - Last Filed: 10/14/18 09:58> Subjectve: Pt is alert and awake. She is recuperating in the PCU post-op right hip ORIF. She denies any acute cardiovascular symptoms. Yesterday she did receive one unit of PRBC. Hgb increased today to 8.3. Objective: Vital Signs Temp Pulse Resp BP Pulse Ox 98.1 F 75 16 116/52 L 95 10/14/18 09:23 10/14/18 09:23 10/14/18 09:23 10/14/18 09:23 10/14/18 09:23 Oxygen Flow Rate (L/min) 1 Oxygen Delivery Method Room Air Weight: 123 lb 14.397 oz Body Mass Index (BMI) 22.6 Finger Stick Blood Glucose 109 Intake and Output for Last 24 Hours 10/12/18 10/13/18 10/14/18 23:59 23:59 23:59 Intake Total 2121.8 / 2566.8 2309 / 2309 360 / 360 Output Total 850 / 1050 1250 / 1250 850 / 850 Balance 1271.8 / 1516.8 1059 / 1059 -490 / -490 General: Healthy Appearing, Awake, Alert, Oriented x 3, No Acute Distress HEENT: Atraumatic, Normocephalic, PERRL, EOMI, Sclera Non Icteric Oral: Moist Mucosa Neck: Supple, Good ROM, No JVD Lungs: Clear to auscultation Cardiovascular: Regular Rhythm Murmur Murmur: Grade 2/6, Mid Systolic, LLSB, [place], LVOT Abdomen: Bowel Sounds Present, Soft, Non Tender Extremities: No Cyanosis, No Clubbing, No edema Musculoskeletal: No Erythema Neurological: No Focal Motor or Sensory Deficit 10/14/18 06:10: WBC 8.0, RBC 2.92 L, Hgb 8.3 L, Hct 26.1 L, MCV 89.4, MCH 28.4, MCHC 31.8 L, RDW 18.2 H, RDW Differential 57.1 H, Plt Count 235, MPV 10.1, Immature Gran % (Auto) 0.400, Neut % (Auto) 73.9 H, Lymph % (Auto) 10.5 L, [place] % (Auto) 13.9 H, Eos % (Auto) 1.2, Baso % (Auto) 0.1, Absolute Neuts (auto) 5.9, Total Counted Not Reportable 10/14/18 06:10: PT 18.5 H, INR 1.6 Rhythm: Medical Necessity - Tobacco Use Smoking Status: Never smoker Assessment/Plan 1. Atrial fibrillation/Nonsustained wide-complex tachycardia The patient has a history of atrial fibrillation. She has been on medical management which has included anticoagulation. This has been restarted. Will follow her INRs. The present time her rate and rhythm will be followed. This has been controlled. She was started on amiodarone during this hospital stay d/t wide complex tachycardia, will continue with plans to decrease dose over the next few weeks. 2. CAD The patient has a history of CAD. It has been thought to be non-angiographically significant. She continues with no acute symptoms. She will need to continue risk factor modification medical therapy as tolerated. 3. 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 She has been on warfarin. This has been restarted. Will monitor her INRs. 4. Cardiomyopathy The patient has a history of a non-CAD related cardia myopathy. She has had waxing and waning left ventricular systolic function/LVEF. Based upon her echocardiogram her estimated LVEF was approximately 45%. At the moment she appears to be without acute symptoms. She will need to continue medical management. Will need to monitor volume status. 5. Chronic systolic CHF Again she is without any acute symptoms at this time. She will continue to be followed. She will continue medical management. 6. Hyperlipidemia She will continue medical therapy as deemed appropriate. 7. Hypertension She will continue antihypertensive therapy with adjustment as needed. 8. Diabetes mellitus She will continue under the care of internal medicine. 9. Long-term anticoagulant therapy This has been restarted, will adjust based on her INRs. 10. Anemia: She did receive one unit of RBCs yesterday, Hgb did improve, will follow, if trends lower would reconsider additional unit. 11. Right hip fracture This is being managed by orthopedics. This patient was discussed with Dr. Harrison. <Harjit Harrison - Last Filed: 10/14/18 17:35> Objective: Vital Signs Temp Pulse Resp BP Pulse Ox 98.3 F 77 16 117/42 L 98 10/14/18 15:23 10/14/18 15:23 10/14/18 15:23 10/14/18 15:23 10/14/18 15:23 Oxygen Flow Rate (L/min) 1 Oxygen Delivery Method Room Air Weight: 123 lb 14.397 oz Body Mass Index (BMI) 22.6 Finger Stick Blood Glucose 109 Intake and Output for Last 24 Hours 10/12/18 10/13/18 10/14/18 23:59 23:59 23:59 Intake Total 2121.8 / 2566.8 2309 / 2309 600 / 600 Output Total 850 / 1050 1250 / 1250 1200 / 1200 Balance 1271.8 / 1516.8 1059 / 1059 -600 / -600 10/14/18 06:10: WBC 8.0, RBC 2.92 L, Hgb 8.3 L, Hct 26.1 L, MCV 89.4, MCH 28.4, MCHC 31.8 L, RDW 18.2 H, RDW Differential 57.1 H, Plt Count 235, MPV 10.1, Immature Gran % (Auto) 0.400, Neut % (Auto) 73.9 H, Lymph % (Auto) 10.5 L, [place] % (Auto) 13.9 H, Eos % (Auto) 1.2, Baso % (Auto) 0.1, Absolute Neuts (auto) 5.9, Total Counted Not Reportable 10/14/18 06:10: PT 18.5 H, INR 1.6 10/14/18 11:10: APTT 30.7 Rhythm: EKG: ECHO: Stress Test: Cardiac Cath: PCI: CT Surgery: Holter monitor: EPS: PPM: CXR: Chest CT Scan: Assessment/Plan Addendum: The patient was independently evaluated and examined. The present time the patient has been up out of bed. She has no new acute complaints from a cardiovascular standpoint. She has received PRBCs. She is also been placed back on IV heparin and oral anticoagulant therapy with warfarin. On examination her lungs remain clear at this time. Her cardiovascular exam demonstrates an irregular rhythm with a crisp prosthetic S1 normal S2 and a continued 2/6 to 3/6 systolic murmur at the lower left sternal border. She has no obvious peripheral pitting edema. Her laboratory studies have been reviewed. Her H&H has been low. She has been receiving PRBCs. At the present time she will continue medical management support. She will continue on IV heparin as bridging anticoagulant therapy until her INR is considered therapeutic barring any change in her clinical course, etc. The above was discussed and reviewed with the patient, her who was present time, and SPEEDY Li.
--- NOTE | 2018-10-14 10:06 | PN.ORTHO_ITS ---
Patient Problems: Active and Suspected Problems (Last Reviewed 10/10/18 @ 05:16 by Kael Stanley MD) Closed intertrochanteric fracture of right hip (Acute) Fall from slip, trip, or stumble (Acute) Warfarin-induced coagulopathy (Acute) Femoral fracture (Acute) Preoperative cardiovascular examination (Acute) Subjective: Patient sitting at bedside eating breakfast. Patient states she has painful but is been well managed. Denies chest pain, shortness breath, calf pain, nausea vomiting. Objective: Dressings clean dry intact. Negative signs and symptoms of DVT. Patient is afebrile neurovascular is otherwise intact. Patient speaking full sentences with no obvious respiratory distress. Patient has good plantar flexion dorsiflexion of the right foot - Physical Exam General: Alert, Oriented x3 HEENT: PERRLA Oral: Moist Mucosa Neurological: Cranial nerves II-XII grossly intact Psych/Mental Status: Normal Affect, Alert and oriented to time, place, person, mood and affect Vital Signs Temp Pulse Resp BP Pulse Ox 98.1 F 75 16 116/52 L 95 10/14/18 09:23 10/14/18 09:23 10/14/18 09:23 10/14/18 09:23 10/14/18 09:23 Oxygen Flow Rate (L/min) 1 Oxygen Delivery Method Room Air Weight: 56.2 kg Body Mass Index (BMI) 22.6 Finger Stick Blood Glucose 109 Intake and Output for Last 24 Hours 10/12/18 10/13/18 10/14/18 23:59 23:59 23:59 Intake Total 2121.8 / 2566.8 2309 / 2309 360 / 360 Output Total 850 / 1050 1250 / 1250 850 / 850 Balance 1271.8 / 1516.8 1059 / 1059 -490 / -490 Laboratory Tests Past 24 Hrs 10/12/18 10/14/18 10/14/18 02:00 06:10 06:10 WBC 8.0 RBC 2.92 L Hgb 8.3 L Hct 26.1 L MCV 89.4 MCH 28.4 MCHC 31.8 L RDW 18.2 H RDW Differential 57.1 H Plt Count 235 MPV 10.1 Immature Gran % (Auto) 0.400 Neut % (Auto) 73.9 H Lymph % (Auto) 10.5 L [place] % (Auto) 13.9 H Eos % (Auto) 1.2 Baso % (Auto) 0.1 Absolute Neuts (auto) 5.9 Absolute Lymphs (auto) 0.84 Total Counted Not Reportable PT 18.5 H INR 1.6 Crossmatch See Detail Medical Necessity - Tobacco Use Smoking Status: Never smoker Assessment/Plan All Active Problems (Last Reviewed 10/10/18 @ 05:16 by Kael Stanley MD) Closed intertrochanteric fracture of right hip (Acute) Fall from slip, trip, or stumble (Acute) Warfarin-induced coagulopathy (Acute) Femoral fracture (Acute) Preoperative cardiovascular examination (Acute) Slurred speech (Resolved) Elevated troponin (Resolved) CVA (cerebral vascular accident) (Resolved) Shortness of breath (Resolved) Abdominal pain (Resolved) Acute respiratory failure (Resolved) Acute on chronic systolic heart failure (Resolved) Hypertensive urgency (Resolved) Epistaxis (Resolved) Status post ORIF right hip fracture with gamma nail Plan 1. Continue all pain medications as prescribed 2. Continue physical therapy weight-bear toe-touch only with walker 3. Continue postop anticoagulation as directed by medicine 4. Encourage incentive spirometry 5. Medicine will continue to manage medically. 6. Patient is cleared orthopedically to be transferred to [facility] when cleared by medicine. 7. Remove neil 10/24/2018 8. Patient can shower on 10/16/2018 9. Follow-up with Dr. Dash in 2 weeks. Call office for an appointment
[2018-10-14] MEDS: Lisinopril 2.5 MG Tablet PO ×2 (10:56→21:00)
[2018-10-14 11:25] LABS: Partial Thromboplast Time 30.7 Seconds (24.1-36.2)
[2018-10-14] MEDS: HEPARIN/D5w 25,000 UNITS 25,000 UNITS/250 ML IV.SOLN. 8 UNITS IV (12:02)
[2018-10-14] MEDS: 0.9% NaCl Peripheral Flush Adult/Peds IV (12:08)
--- NOTE | 2018-10-14 13:25 | CASEMGMT ---
Physician spoke to patient and she agreed to go to [facility]. SW faxed referral. SW will fax PT/OT evaluations once completed. A pre-cert will then need to be obtained. MILENA received a call back from Yumiko at [facility] and they can accept patient. She will start pre-cert once she receives therapy evaluations. Plan: [facility] pending insurance approval. Melyssa DONALDSON MSW
--- NOTE | 2018-10-14 16:26 | NURSING ---
PT here to transfer pt back to bed, tolerated fair. Pt gets painful when moving around or transferring. Oxyir for pain does help somewhat. Support given. at bedside. Pt may be partial weight bearing on right leg per Clayton RUFF. Pt to receive 1 unit PRBC's tonight per order.
--- NOTE | 2018-10-14 17:10 | PN_ITS ---
Patient Problems: Active and Suspected Problems (Last Reviewed 10/10/18 @ 05:16 by Kael Stanley MD) Closed intertrochanteric fracture of right hip (Acute) Fall from slip, trip, or stumble (Acute) Warfarin-induced coagulopathy (Acute) Femoral fracture (Acute) Preoperative cardiovascular examination (Acute) Subjective: Patient was seen and examined today, she appears fatigued but has no complaints of any shortness of breath or chest pain. Patient's hemoglobin today was 8.3, cardiology request that she receive another unit of packed red blood cells and is been ordered. We are currently in the process of getting approval from her insurance carrier for short-term rehab. - Physical Exam General: Alert, Oriented x3, Cooperative, No apparent distress, Well developed HEENT: Atraumatic, PERRLA, EOMI, Normocephalic Oral: Moist Mucosa Neck: Supple, Trachea Midline, Thyroid Normal Size and Texture Lungs: Clear to auscultation, Normal air movement, No rhonchi, No wheeze, No rales, Diminished Cardiovascular: Irregular Rate Abdomen: Bowel Sounds Present, Soft, Non Tender, Non-Distended Extremities: No clubbing, No cyanosis, Capillary Refill Less than 3 Seconds Skin: No rashes, No breakdown Musculoskeletal: No Tenderness to Palpation of Joints or Extremities Neurological: Cranial nerves II-XII grossly intact, Neuro grossly intact, Sensory exam intact to light touch and pain, Coordination normal Psych/Mental Status: Normal Affect, Appropriate, Alert and oriented to time, place, person, mood and affect Vital Signs Temp Pulse Resp BP Pulse Ox 98.3 F 77 16 117/42 L 98 10/14/18 15:23 10/14/18 15:23 10/14/18 15:23 10/14/18 15:23 10/14/18 15:23 Oxygen Flow Rate (L/min) 1 Oxygen Delivery Method Room Air Weight: 56.2 kg Body Mass Index (BMI) 22.6 Finger Stick Blood Glucose 109 Intake and Output for Last 24 Hours 10/12/18 10/13/18 10/14/18 23:59 23:59 23:59 Intake Total 2121.8 / 2566.8 2309 / 2309 600 / 600 Output Total 850 / 1050 1250 / 1250 1200 / 1200 Balance 1271.8 / 1516.8 1059 / 1059 -600 / -600 Laboratory Tests Past 24 Hrs 10/12/18 10/14/18 10/14/18 02:00 06:10 06:10 WBC 8.0 RBC 2.92 L Hgb 8.3 L Hct 26.1 L MCV 89.4 MCH 28.4 MCHC 31.8 L RDW 18.2 H RDW Differential 57.1 H Plt Count 235 MPV 10.1 Immature Gran % (Auto) 0.400 Neut % (Auto) 73.9 H Lymph % (Auto) 10.5 L [place] % (Auto) 13.9 H Eos % (Auto) 1.2 Baso % (Auto) 0.1 Absolute Neuts (auto) 5.9 Absolute Lymphs (auto) 0.84 Total Counted Not Reportable PT 18.5 H INR 1.6 APTT Crossmatch See Detail 10/14/18 11:10 WBC RBC Hgb Hct MCV MCH MCHC RDW RDW Differential Plt Count MPV Immature Gran % (Auto) Neut % (Auto) Lymph % (Auto) [place] % (Auto) Eos % (Auto) Baso % (Auto) Absolute Neuts (auto) Absolute Lymphs (auto) Total Counted PT INR APTT 30.7 Crossmatch Medical Necessity - Tobacco Use Smoking Status: Never smoker Assessment/Plan All Active Problems (Last Reviewed 10/10/18 @ 05:16 by Kael Stanley MD) Closed intertrochanteric fracture of right hip (Acute) Fall from slip, trip, or stumble (Acute) Warfarin-induced coagulopathy (Acute) Femoral fracture (Acute) Preoperative cardiovascular examination (Acute) Slurred speech (Resolved) Elevated troponin (Resolved) CVA (cerebral vascular accident) (Resolved) Shortness of breath (Resolved) Abdominal pain (Resolved) Acute respiratory failure (Resolved) Acute on chronic systolic heart failure (Resolved) Hypertensive urgency (Resolved) Epistaxis (Resolved) #1 right intertrochanteric fracture-status post ORIF with gamma nail postop day 2-patient continues PT and OT, she will [facility] in a [facility] facility, we are awaiting approval from her insurance carrier #2 chronic atrial fib #3 nonischemic cardiomyopathy-EF 45% #4 chronic anticoagulation due to mechanical mitral valve-heparin will be started again, patient was placed back on Coumadin, recheck INR tomorrow #5 coronary artery disease #6 acute blood loss anemia as expected result from hip fracture-patient will receive another unit of packed red blood cells-recheck CBC tomorrow #7 General debility secondary to multiple medical problems Code Visit Inpatient E&M: 95138 Subs Hosp L2
[2018-10-14 18:55] LABS: Partial Thromboplast Time 71.4 Seconds (24.1-36.2)
--- NOTE | 2018-10-14 21:15 | PCM.PN.BLA ---
Progress Note Called to see family who wanted to change patient's CODE STATUS to DNR CCA with intubation Patient's and sons were at the bedside. Patient appeared to be in agreement with the above. They explained that in the event that he has to stop, they did not want any CPR or shocks. But if she should go into respiratory distress they were willing for her to be intubated and managed on mechanical ventilator. I tried to explain to them that usually is not as easy like that to tease it out to say no CPR but yes to intubation. They appeared to be set on this. They will discuss more about it and let us know if they change your mind. The asked when he will also be allowed to sign. I believe he is thinking of advanced directives. We will get social work to discuss feeling of advance directive forms with him. Code Visit Procedures: 26251 Advncd Care Plan 30 Min
[2018-10-15] VITALS (10 sets, daily range): BP systolic 101–130; BP diastolic 33–59; PULSE 70–82; RESP 16–20; TEMP 36.8–37.5; O2SAT 93–98
[2018-10-15] MEDS: oxyCODONE 5 MG Tablet PO ×3 (00:32→21:31)
[2018-10-15 01:02] LABS: Partial Thromboplast Time 76.9 Seconds (24.1-36.2)
[2018-10-15] MEDS: Amiodarone 200 MG Tablet PO ×3 (06:19→21:16)
[2018-10-15 06:42] LABS: Hematocrit 27.3 % (37-47); Hemoglobin 8.9 g/dl (12.0-15.0)
[2018-10-15 06:44] LABS: International Normalized Ratio 1.8; Prothrombin Time (Protime)PT. 20.5 SECONDS (11.7-14.9)
[2018-10-15 06:46] LABS: Partial Thromboplast Time 72.2 Seconds (24.1-36.2)
--- NOTE | 2018-10-15 09:15 | PN.CARD_ITS ---
Subjectve: The patient appears to be resting comfortably at this time. She has no new acute cardiovascular complaints. Objective: Vital Signs Temp Pulse Resp BP Pulse Ox 98.6 F 74 18 101/33 L 93 10/15/18 05:59 10/15/18 07:30 10/15/18 05:59 10/15/18 05:59 10/15/18 05:59 Oxygen Flow Rate (L/min) 1 Oxygen Delivery Method Room Air Weight: 123 lb 14.397 oz Body Mass Index (BMI) 22.6 Finger Stick Blood Glucose 109 Intake and Output for Last 24 Hours 10/13/18 10/14/18 10/15/18 23:59 23:59 23:59 Intake Total 2309 / 2309 840 / 840 1242.0 / 1242.0 Output Total 1250 / 1250 1200 / 1200 1125 / 1125 Balance 1059 / 1059 -360 / -360 117.0 / 117.0 General: Awake, Cooperative, No Acute Distress HEENT: Atraumatic, Normocephalic, PERRL, EOMI, Sclera Non Icteric Neck: Supple, Good ROM, No JVD Lungs: Clear to auscultation Cardiovascular: Irregular Rhythm, Normal S2, [place] Prosthetic S1 Murmur Murmur: Grade 2/6, Mid Systolic, LLSB, [place], LVOT Abdomen: Bowel Sounds Present, Soft Extremities: No edema Neurological: No Focal Motor or Sensory Deficit Psych/Mental Status: Appropriate 10/14/18 11:10: APTT 30.7 10/14/18 18:30: APTT 71.4 H 10/15/18 00:35: APTT 76.9 H 10/15/18 06:25: Hgb 8.9 L, Hct 27.3 L 10/15/18 06:25: PT 20.5 H, INR 1.8, APTT 72.2 H Rhythm: Atrial fibrillation; PVCs; intermittent episodes appearing compatible with a transient junctional rhythm Medical Necessity - Tobacco Use Smoking Status: Never smoker Assessment/Plan 1. Atrial fibrillation/Nonsustained wide-complex tachycardia The patient has a history of atrial fibrillation. She has been on medical management which has included anticoagulation. This has been restarted. Her INR is increasing. Once her INR is therapeutic her IV heparin can be discontinued. In the meantime, since initiation of her antiarrhythmic therapy with amiodarone she does not appear to have had documented recurrent of her wide-complex dysrhythmia. She will continue combined medical therapy with adjustment as deemed appropriate. 2. CAD The patient has a history of CAD. It has been thought to be non- angiographically significant. She continues with no acute symptoms. She will need to continue risk factor modification medical therapy as tolerated. 3. 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 She has been on warfarin. This has been restarted. Again, once her INR is therapeutic, her IV heparin can be discontinued. 4. Cardiomyopathy The patient has a history of a non-CAD related cardia myopathy. She has had waxing and waning left ventricular systolic function/LVEF. Based upon her echocardiogram her estimated LVEF was approximately 45%. At the moment she appears to be without acute symptoms. She will need to continue medical management. Will need to monitor volume status. 5. Chronic systolic CHF Again she is without any acute symptoms at this time. She will continue to be followed. She will continue medical management. 6. Hyperlipidemia She will continue medical therapy as deemed appropriate. 7. Hypertension She will continue antihypertensive therapy with adjustment as needed. 8. Diabetes mellitus She will continue under the care of internal medicine. 9. Long-term anticoagulant therapy This has been restarted, will adjust based on her INRs. 10. Anemia: She did receive one unit of RBCs yesterday, Hgb did improve, will follow, if trends lower would reconsider additional unit. 11. Right hip fracture This is being managed by orthopedics. This note was generated using a voice recognition system and there may be incorrect words, spelling or punctuation that were not noted when reviewing the office note prior to saving.
[2018-10-15] MEDS: Senna/Docusate Sodium 1 Tablet PO ×2 (10:07→21:17)
[2018-10-15] MEDS: Furosemide 40 MG Tablet PO ×2 (10:07→21:16)
[2018-10-15] MEDS: Lisinopril 2.5 MG Tablet PO ×2 (10:07→21:16)
[2018-10-15] MEDS: Spironolactone 25 MG Tablet PO (10:07)
--- NOTE | 2018-10-15 12:50 | CASEMGMT ---
MILENA faxed therapy evaluations first think this am. Physician said patient will be ready tomorrow. MILENA called Yumiko at [facility] and let her know this information. Plan: [facility] pending insurance approval and patient being medically ready. Melyssa DONALDSON HEALTH EDUCATION SPECIALIST
--- NOTE | 2018-10-15 17:32 | PCM.PROGNOTE ---
Patient Problems: Active and Suspected Problems (Last Reviewed 10/10/18 @ 05:16 by Kael Stanley MD) Closed intertrochanteric fracture of right hip (Acute) Fall from slip, trip, or stumble (Acute) Warfarin-induced coagulopathy (Acute) Femoral fracture (Acute) Preoperative cardiovascular examination (Acute) Subjective: She was seen and examined today, she appeared to be fatigued, I went over her CODE STATUS with her-she confirms she does not want to be intubated or have CPR if her heart stops or she quits breathing. I talked to nursing last night about this and confirmed that this was okay to honor the patient's wishes. His INR was 1.8 today, patient's hemoglobin today was 8.9. - Physical Exam General: Alert, Oriented x3, Cooperative, No apparent distress, Well developed HEENT: Atraumatic, PERRLA, EOMI, Normocephalic Oral: Moist Mucosa Neck: Supple, Trachea Midline, Thyroid Normal Size and Texture Lungs: Clear to auscultation, Normal air movement, No rhonchi, No wheeze, No rales Cardiovascular: PMI Normal, Irregular Rate, Murmur - Prosthetic murmur noted, No rub noted Abdomen: Bowel Sounds Present, Soft, Non Tender Extremities: No edema, Capillary Refill Less than 3 Seconds Skin: No rashes, No breakdown Musculoskeletal: No Tenderness to Palpation of Joints or Extremities Neurological: Cranial nerves II-XII grossly intact, Neuro grossly intact, Sensory exam intact to light touch and pain, Coordination normal Psych/Mental Status: Appropriate, Flat Affect, Alert and oriented to time, place, person, mood and affect Vital Signs Temp Pulse Resp BP Pulse Ox 98.5 F 72 18 112/55 L 97 10/15/18 09:54 10/15/18 09:54 10/15/18 09:54 10/15/18 09:54 10/15/18 09:54 Oxygen Flow Rate (L/min) 1 Oxygen Delivery Method Room Air Weight: 56.2 kg Body Mass Index (BMI) 22.6 Finger Stick Blood Glucose 109 Intake and Output for Last 24 Hours 10/13/18 10/14/18 10/15/18 23:59 23:59 23:59 Intake Total 2309 / 2309 840 / 840 1242.0 / 1242.0 Output Total 1250 / 1250 1200 / 1200 1125 / 1125 Balance 1059 / 1059 -360 / -360 117.0 / 117.0 Laboratory Tests Past 24 Hrs 10/12/18 10/12/18 10/14/18 02:00 02:00 18:30 Hgb Hct PT INR APTT 71.4 H Crossmatch See Detail See Detail 10/15/18 10/15/18 10/15/18 00:35 06:25 06:25 Hgb 8.9 L Hct 27.3 L PT 20.5 H INR 1.8 APTT 76.9 H 72.2 H Crossmatch 10/15/18 12:53 Hgb Hct PT INR APTT 79.0 H Crossmatch Medical Necessity - Tobacco Use Smoking Status: Never smoker Assessment/Plan All Active Problems (Last Reviewed 10/10/18 @ 05:16 by Kael Stanley MD) Closed intertrochanteric fracture of right hip (Acute) Fall from slip, trip, or stumble (Acute) Warfarin-induced coagulopathy (Acute) Femoral fracture (Acute) Preoperative cardiovascular examination (Acute) Slurred speech (Resolved) Elevated troponin (Resolved) CVA (cerebral vascular accident) (Resolved) Shortness of breath (Resolved) Abdominal pain (Resolved) Acute respiratory failure (Resolved) Acute on chronic systolic heart failure (Resolved) Hypertensive urgency (Resolved) Epistaxis (Resolved) #1 right intertrochanteric fracture-status post ORIF with gamma nail postop day 3-patient continues PT and OT, she will need placement in a residential facility, we are awaiting approval from her insurance carrier #2 chronic atrial fib #3 nonischemic cardiomyopathy-EF 45% #4 chronic anticoagulation due to mechanical mitral valve-patient currently remains on heparin and warfarin, lab will be rechecked tomorrow #5 coronary artery disease #6 acute blood loss anemia as expected result from hip fracture patient's hemoglobin appears to be stable at this time #7 General debility secondary to multiple medical problems Code Visit Inpatient E&M: 68083 Subs Hosp L2
[2018-10-15] MEDS: HEPARIN/D5w 25,000 UNITS 25,000 UNITS/250 ML IV.SOLN. 8 UNITS IV (19:01)
[2018-10-15] MEDS: Magnesium Hydroxide 30 ML UDC PO (21:24)
[2018-10-16] VITALS (9 sets, daily range): BP systolic 108–146; BP diastolic 54–69; PULSE 70–87; RESP 16–18; TEMP 36.8–37.2; O2SAT 95–97
[2018-10-16] MEDS: oxyCODONE 5 MG Tablet PO ×3 (03:41→18:27)
--- NOTE | 2018-10-16 06:19 | RAD_ITS ---
HISTORY: Abdominal Distention and recent right hip surgery EXAMINATION/TECHNIQUE: XR Abdomen 2 supine views COMPARISON: CT abdomen and pelvis 07/15/2017 FINDINGS: Prominent gaseous distention of the colon in keeping with ileus. No small bowel distention is seen with certainty. No soft tissue mass or organomegaly. Right hip compression screw in place. Previous median sternotomy. RAD/Abdomen Single View (Portable) IMPRESSION: 1. Gaseous distention of the colon, probable adynamic ileus. Recent right hip surgery. 2. If symptoms warrant, further correlation with CT could be obtained. at 0802 Reported and signed by: Huy Andrews MD Electronically Signed: Huy Andrews, at 8:00 EDT Tel , Service support ,
[2018-10-16] MEDS: Amiodarone 200 MG Tablet PO (06:39)
[2018-10-16 07:46] LABS: Hemoglobin 9.9 g/dl (12.0-15.0); Mean Corp Hgb Conc 31.9 g/gl (32-36); Mean Corpuscular Hgb 28.2 pg (27.0-32.0); Mean Corpuscular Volume 88.3 fL (81-99); Mean Platelet Vol. 10.2 fl (6.2-12.0); Platelet Count 287 K/mm3 (150-450); RBC Distribution Width SD 55.6 fl (35.1-43.9); Red Blood Count 3.51 M/mm3 (4.2-5.4); White Blood Count 8.4 K/mm3 (4.4-11.0)
[2018-10-16 07:49] LABS: Scan Indicated on CBC? Y/N NO
[2018-10-16 07:57] LABS: International Normalized Ratio 2.7; Prothrombin Time (Protime)PT. 28.8 SECONDS (11.7-14.9)
[2018-10-16 08:02] LABS: Partial Thromboplast Time 67.1 Seconds (24.1-36.2)
--- NOTE | 2018-10-16 08:40 | PN.CARD_ITS ---
Subjectve: The patient appears to be resting comfortably at this time in no acute distress. Objective: Vital Signs Temp Pulse Resp BP Pulse Ox 98.2 F 73 18 131/54 H 95 10/16/18 03:20 10/16/18 07:05 10/16/18 03:20 10/16/18 03:20 10/16/18 07:44 Oxygen Flow Rate (L/min) 1 Oxygen Delivery Method Room Air Weight: 123 lb 14.397 oz Body Mass Index (BMI) 22.6 Finger Stick Blood Glucose 109 Intake and Output for Last 24 Hours 10/14/18 10/15/18 10/16/18 23:59 23:59 23:59 Intake Total 840 / 840 1386.0 / 1386.0 Output Total 1200 / 1200 2425 / 2425 450 / 450 Balance -360 / -360 -1039.0 / -1039.0 -450 / -450 General: Awake, Cooperative, No Acute Distress HEENT: Atraumatic, Normocephalic Oral: Moist Mucosa Neck: Supple, Good ROM, No JVD Lungs: Clear to auscultation Cardiovascular: Regular Rhythm, Normal S1, Normal S2 Abdomen: Bowel Sounds Present, Soft, Non Tender Extremities: No Cyanosis, No Clubbing, No edema Psych/Mental Status: Appropriate 10/15/18 12:53: APTT 79.0 H 10/16/18 06:20: PT 28.8 H, INR 2.7, APTT 67.1 H 10/16/18 06:20: WBC 8.4, RBC 3.51 L, Hgb 9.9 L, Hct 31.0 L, MCV 88.3, MCH 28.2, MCHC 31.9 L, RDW 18.0 H, RDW Differential 55.6 H, Plt Count 287, MPV 10.2 Rhythm: atrial fibrillation / intermittent junctional appearing rhythm Medical Necessity - Tobacco Use Smoking Status: Never smoker Assessment/Plan 1. Atrial fibrillation/Nonsustained wide-complex tachycardia The patient has a history of atrial fibrillation. She has been on medical management which has included anticoagulation. This has been restarted. Her INR is 2.7. Her IV heparin can be discontinued. In the meantime, since initiation of her antiarrhythmic therapy with amiodarone she does not appear to have had documented recurrent of her wide-complex dysrhythmia or worsened any underlying conduction system related issues. She will continue combined medical therapy with adjustment as deemed appropriate . 2. CAD The patient has a history of CAD. It has been thought to be non- angiographically significant. She continues with no acute symptoms. She will need to continue risk factor modification medical therapy as tolerated. 3. 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 She has been on warfarin. This has been restarted. Again, once her INR is therapeutic, her IV heparin can be discontinued. 4. Cardiomyopathy The patient has a history of a non-CAD related cardia myopathy. She has had waxing and waning left ventricular systolic function/LVEF. Based upon her echocardiogram her estimated LVEF was approximately 45%. At the moment she appears to be without acute symptoms. She will need to continue medical management. Will need to monitor volume status. 5. Chronic systolic CHF Again she is without any acute symptoms at this time. She will continue to be followed. She will continue medical management. 6. Hyperlipidemia She will continue medical therapy as deemed appropriate. 7. Hypertension She will continue antihypertensive therapy with adjustment as needed. 8. Diabetes mellitus She will continue under the care of internal medicine. 9. Long-term anticoagulant therapy She will continue oral anticoagulant therapy with follow-up of her INRs. 10. Anemia: She did receive PRBCs. Her H&H has improved. 11. Right hip fracture This is being managed by orthopedics. This note was generated using a voice recognition system and there may be incorrect words, spelling or punctuation that were not noted when reviewing the office note prior to saving.
[2018-10-16] MEDS: 0.9% NaCl Peripheral Flush Adult/Peds IV (09:55)
[2018-10-16] MEDS: Furosemide 40 MG Tablet PO (09:57)
[2018-10-16] MEDS: Spironolactone 25 MG Tablet PO (09:57)
[2018-10-16] MEDS: Lisinopril 2.5 MG Tablet PO (09:58)
[2018-10-16] MEDS: Senna/Docusate Sodium 1 Tablet PO (09:58)
[2018-10-16] MEDS: Magnesium Citrate 300 ML 150 ML PO ×2 (12:17→16:51)
--- NOTE | 2018-10-16 13:46 | CASEMGMT ---
Spoke with [facility] and they received insurance approval for patient. MILENA spoke with physician and he said patient will have to have a bowel movement before she can leave. SW notified patient and family. SW also notified [facility]. SW was told to have orders faxed to [phone] and the number for report would be [phone]. Green sheet will be left on chart. Plan: d/c to [facility] under skilled level of care on a convalescent stay. Staff to set up transport when patient is ready. Melyssa DONALDSON MSW
[2018-10-16] MEDS: Ondansetron 4 MG/2 ML Vial IV (16:09)
--- NOTE | 2018-10-16 16:34 | PCM.TXEXTCAR ---
- Diet 10/13/18 08:08 Diet: Regular Diet Is pt able to select menu?: Yes - Routine Orders/Code Status Routine Lab Work: INR - on 10/19/18, then weekly Code Status: DNC-A - Wound(s) rt hip Wound Type: Surgical Incision - Therapies Weight Bearing: Toe-touch weight bearing - with walker Extremity Affected:: Right Lower Physical Therapy: Eval and Treat Occupational Therapy: Eval and Treat - Problem/Diagnosis (1) Closed intertrochanteric fracture of right hip Status: Acute Comment: ORIF 10/12/18 Current Visit: Yes (2) Atrial fibrillation Status: Chronic Current Visit: Yes (3) CAD (coronary artery disease) Status: Chronic Current Visit: Yes (4) long term care social worker (current) use of anticoagulants Status: Chronic Current Visit: No (5) H/O mitral valve replacement with mechanical valve Status: Chronic Comment: 27mm [place] mechanical mitral valve replacement, tricuspid valve repair using 30mm Carrpenter- Edwars annuloplasty ring, Left atria; appendage exclusion 04/11/04 @ [facility] Dr. Addison Montague Current Visit: No (6) Cardiomyopathy Status: Chronic Current Visit: No - Allergies/Procedures Done in Hospital Allergies/Adverse Reactions: Allergies cortisone Allergy (Verified 06/26/18 16:49) Unknown Procedures: - - ORIF 10/12/18 - Type of Care/Length of Stay Estimated LOS: Convalescent Care Less Than 30 days Type of Care Needed: Skilled Rehab Potential: Good Prognosis: Good - Additional Orders/Day of Discharge Additional Orders: remove neil 10/24/18. Follow up with Dr. Ospina in 2 weeks-call for appointment H&P will serve as current which was dated: 10/10/18 Day of Discharge: 10/16/18 - Dietary and Speech Recommendations Dietitian Recommendations/Changes: Resume liberalized Regular diet until PO intake improves. Rec weighing pt daily. Added Magic cup w/ lunch and Ensure Enlive 120 ml w/ medpass to increase protein/calorie intake if consumed. - Follow Up Care Primary Care Physician: Warren Mendoza MD [Primary Care Provider] -
[2018-10-16] MEDS: Morphine 2 MG/ML Syringe IV (16:54)
--- NOTE | 2018-10-16 17:59 | NURSING ---
report called to emerson [facility] [phone]
--- NOTE | 2018-10-18 14:13 | DS.PCM_ITS ---
Discharge Date and Diagnosis Date of Admission: 10/10/18 Date of Discharge: 10/16/18 - Primary Discharge Diagnosis #1 right intertrochanteric fracture #2 chronic atrial fib #3 nonischemic cardiomyopathy-EF 45% #4 chronic anticoagulation due to mechanical mitral valve #5 coronary artery disease #6 acute blood loss anemia as expected result from hip fracture requiring blood transfusion #7 General debility secondary to multiple medical problems #8 atherosclerotic heart disease #9 chronic systolic congestive heart failure #10 valvular heart disease status post mechanical mitral valve replacement and status post tricuspid valve repair (remote) #11 type 2 diabetes #12 essential hypertension #13 moderate caloric and protein malnutrition - Secondary Discharge Diagnosis Chronic Problems (Last Reviewed 10/10/18 @ 05:16 by Kael Stanley MD) Malnutrition (Chronic) Atrial fibrillation (Chronic) CAD (coronary artery disease) (Chronic) Heart failure (Chronic) prison (current) use of anticoagulants (Chronic) Chronic systolic congestive heart failure (Chronic) Atherosclerotic heart disease of [place] coronary artery without angina pectoris (Chronic) Depression (Chronic) Anxiety (Chronic) 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 mechanical mitral valve replacement, tricuspid valve repair using 30mm Carrpenter- Edwars annuloplasty ring, Left atria; appendage exclusion 04/11/04 @ [facility] Dr. Addison Montague Cirrhosis (Chronic) Hypertension (Chronic) GERD (gastroesophageal reflux disease) (Chronic) Atrial fibrillation (Chronic) Diabetes mellitus (Chronic) Cardiomyopathy (Chronic) H/O tricuspid valve repair (Chronic) 27mm [place] mechanical mitral valve replacement, tricuspid valve repair using 30mm Carrpenter- Edwars annuloplasty ring, Left atria; appendage exclusion 04/11/04 @ [facility] Dr. Addison Montague Hyperlipidemia (Chronic) Anxiety and depression (Chronic) Hospital Course and Treatment Operations: None Procedures: 2-D Echocardiogram, Blood transfusion, - - ORIF right hip using gamma nail Summary of Care Provided: The patient is a 78 year old F who was seen in the emergency room at [facility] after she stumbled on gravel and fell striking her right hip. She complained of right hip pain and inability to bear weight on her right hip. X-rays obtained in the emergency room revealed the patient to have a suspected right hip fracture, INR was elevated in keeping with her outpatient warfarin usage. Patient was admitted to PCU, she was seen in consultation by orthopedic surgery and cardiology, due to her elevated INR her ORIF of her right hip was delayed. Patient had to be given vitamin K and plasma finally to reduce her INR so that the patient could undergo repair of her right hip fracture. After her surgery, patient's hemoglobin trended downward and she was given 2 units of packed RBCs due to expected acute blood loss from her hip fracture. She was seen by PT and OT, it was recommended that the patient go for inpatient rehab short-term at a senior care facility. Patient was placed on IV heparin and her warfarin was restarted, INR was therapeutic at the time of discharge to her senior care facility and she did not require IV heparin at the time of discharge. On 10/16/2018, patient was seen and examined: On examination she appeared frail and fatigued, she was appropriate. Vital signs as documented. Skin warm and dry and without overt rashes. Neck without JVD. Lungs clear. Heart exam notable for irregular rhythm Abdomen unremarkable and without evidence of organomegaly, masses, or abdominal aortic enlargement. Extremities nonedematous. Neuro: Cranial nerves II through XII are grossly intact, no focal motor deficits were noted, sensation to light touch and pinprick is intact. Psych: Patient is alert and oriented x3, she does not appear anxious or depressed On 10/16/2018, patient was seen and examined and felt in stable condition for transfer to a senior care facility for inpatient rehab services. - Physical Exam Vital Signs Temp Pulse Resp BP Pulse Ox 99 F 87 16 146/69 H 97 10/16/18 18:23 10/16/18 18:23 10/16/18 18:23 10/16/18 18:23 10/16/18 18:23 Oxygen Flow Rate (L/min) 1 Oxygen Delivery Method Room Air Weight: 56.2 kg Body Mass Index (BMI) 22.6 Finger Stick Blood Glucose 109 Intake and Output for Last 24 Hours 10/16/18 10/17/18 10/18/18 23:59 23:59 23:59 Intake Total 770 / 770 Output Total 450 / 450 Balance 320 / 320 Home Medications: Medications to take at Discharge nitroglycerin 0.4 mg sublingual tablet 0.4 mg SUBLINGUAL Q5M PRN #25 tab 08/01/17 potassium chloride ER 20 mEq tablet,extended release(part/cryst) 20 meq PO DAILY #90 tab 08/01/17 spironolactone 25 mg tablet 25 mg PO DAILY #90 tab 08/01/17 Acetaminophen [Tylenol] 500 mg PO Q6H PRN PRN tablet 10/21/17 furosemide 40 mg tablet 40 mg PO BID tab 07/13/18 Lisinopril [Zestril] 2.5 mg PO BID 10/09/18 Warfarin Sodium 3 mg PO DAILY 10/09/18 Amiodarone HCl [Cordarone] 200 mg PO BID #5 tab 10/16/18 Amiodarone HCl [Cordarone] 200 mg PO DAILY #1 tab 10/16/18 Ensure Enlive 120 ml PO 4X/DAY liquid 10/16/18 Oxycodone [Oxyir] 5 mg PO Q4H PRN PRN 7 Days #20 tab 10/16/18 Senna/Docusate Sodium [Senokot-S] 1 tab PO BID tab 10/16/18 Warfarin [Coumadin] 3 mg PO DAILY@1700 tab 10/16/18 Following Prescrptions Were Given to Patient: Amiodarone HCl [Cordarone] 200 mg PO BID #5 tab Amiodarone HCl [Cordarone] 200 mg PO DAILY #1 tab Oxycodone [Oxyir] 5 mg PO Q4H PRN PRN 7 Days #20 tab PRN Reason: Moderate Pain (4-6/10) Prescription Printed Primary Care Physician: Warren Mendoza MD [Primary Care Provider] - Disposition: Assisted facility Minutes spent on discharge:: 32 Patient Condition:: Stable Medical Necessity - Tobacco Use Smoking Status: Never smoker Meaningful Use Info Meaningful Use Diagnoses (Choose all that apply): None applicable Code Visit Inpatient E&M: 79234 Disch Hosp
== END 2018-10-16 18:35 | disposition skilled nursing facility (03) | DRG 481 ==
LOC: ED 10-10 00:46 → MS3 10-10 01:07 → PCU 10-10 12:45
PROVIDERS: Internal Medicine; Internal Medicine Cardiovascular Disease; Orthopaedic Surgery; Admitting Provider Hospitalist; Emergency Provider Emergency Medicine; Family Provider Family Medicine; PCP Family Medicine; Referring Provider Hospitalist; Visit Provider Internal Medicine
PROC: 0QS606Z Reposition Right Upper Femur with Intramedullary Internal Fixation Device, Open Approach (ICD-10-PCS; CPT 27245; principal; 2018-10-12 14:50)
DX: S72.141A Displaced intertrochanteric fracture of right femur, initial encounter for closed fracture (principal); I42.9 Cardiomyopathy, unspecified; I50.22 Chronic systolic (congestive) heart failure; D62 Acute posthemorrhagic anemia; E44.0 Moderate protein-calorie malnutrition; I25.10 Atherosclerotic heart disease of native coronary artery without angina pectoris; I11.0 Hypertensive heart disease with heart failure; E11.9 Type 2 diabetes mellitus without complications; R79.1 Abnormal coagulation profile; E78.5 Hyperlipidemia, unspecified; K76.0 Fatty (change of) liver, not elsewhere classified; K74.60 Unspecified cirrhosis of liver; Z95.1 Presence of aortocoronary bypass graft; Z95.2 Presence of prosthetic heart valve; I48.2 Chronic atrial fibrillation; Z79.01 Long term (current) use of anticoagulants; Z66 Do not resuscitate; W01.0XXA Fall on same level from slipping, tripping and stumbling without subsequent striking against object, initial encounter; Y93.01 Activity, walking, marching and hiking; Y92.833 Campsite as the place of occurrence of the external cause; Z68.22 Body mass index [BMI] 22.0-22.9, adult; F32.9 Major depressive disorder, single episode, unspecified; F41.9 Anxiety disorder, unspecified; K21.9 Gastro-esophageal reflux disease without esophagitis
CPT/HCPCS: 36415; 71045; 73502; 74018; 76000; 80048; 82962; 83735; 85014; 85018; 85025; 85027; 85610; 85730; 86850; 86900; 86920; 93005; 93306; 97110; 97162; 97166; 97530; 97535; 97802; 99284; C1713; J7030; J7040; P9016; P9017; A4216; J2405

== ENCOUNTER → 2019-01-08 12:14 | Outpatient (CLI) | payer MEDICARE, SELFPAY ==
[2018-10-11 22:56] VITALS: BMI 22.6
[2019-01-08 12:47] LABS: Hemoglobin A1c 5.2 % (4.2-6.3)
[2019-01-08 12:56] LABS: International Normalized Ratio 5.3; Prothrombin Time (Protime)PT. 49.4 SECONDS (11.7-14.9)
[2019-01-08 13:10] LABS: Anion Gap 6 (5-15); BUN 21 mg/dL (7-18); BUN/Creat Ratio 24.2 RATIO (10-20); Calcium,Total 9.8 mg/dL (8.5-10.1); Chloride 101 mmol/L (98-107); Creatinine, Serum 0.87 mg/dL (0.55-1.02); EST Glomerular Filtration Rate 67 mL/min (>60); Est Glom Filt Rate - Afr Amer 81 mL/min (>60); Glucose 91 mg/dL (74-106); Potassium 5.2 mmol/L (3.5-5.1); Sodium Level 134 mmol/L (136-145)
== END ==
PROVIDERS: Family Provider Family Medicine; PCP Family Medicine; Referring Provider Nurse Practitioner Primary Care; Visit Provider Nurse Practitioner Primary Care
DX: I48.91 Unspecified atrial fibrillation (principal); Z79.01 Long term (current) use of anticoagulants; Z13.820 Encounter for screening for osteoporosis
CPT/HCPCS: 80048; 83036; 85610

== ENCOUNTER → 2019-01-11 09:49 | Outpatient (CLI) | payer MEDICARE, SELFPAY ==
[2018-10-11 22:56] VITALS: BMI 22.6
[2019-01-11 09:56] LABS: Hematocrit 42.4 % (37-47); Hemoglobin 13.6 g/dL (12.0-15.0); Mean Corp Hgb Conc 32.1 g/dL (32-36); Mean Corpuscular Hgb 32.2 pg (27.0-32.0); Mean Corpuscular Volume 100.5 fL (81-99); Mean Platelet Vol. 9.5 fl (6.2-12.0); Platelet Count 287 K/mm3 (150-450); RBC Distribution Width CV 15.8 % (11.6-14.6); RBC Distribution Width SD 58.3 fl (35.1-43.9); Red Blood Count 4.22 M/mm3 (4.2-5.4)
[2019-01-11 10:05] LABS: Anion Gap 5 (5-15); BUN 20 mg/dL (7-18); BUN/Creat Ratio 23.7 RATIO (10-20); Calcium,Total 9.8 mg/dL (8.5-10.1); Chloride 104 mmol/L (98-107); Creatinine, Serum 0.84 mg/dL (0.55-1.02); EST Glomerular Filtration Rate 69 mL/min (>60); Est Glom Filt Rate - Afr Amer 83 mL/min (>60); Glucose 79 mg/dL (74-106); International Normalized Ratio 3.3; Potassium 5.3 mmol/L (3.5-5.1); Prothrombin Time (Protime)PT. 33.5 SECONDS (11.7-14.9); Sodium Level 138 mmol/L (136-145)
== END ==
PROVIDERS: Family Provider Family Medicine; PCP Family Medicine; Referring Provider Nurse Practitioner Primary Care; Visit Provider Nurse Practitioner Primary Care
DX: I48.91 Unspecified atrial fibrillation (principal); I05.0 Rheumatic mitral stenosis; R71.0 Precipitous drop in hematocrit
CPT/HCPCS: 80048; 85027; 85610

== ENCOUNTER → 2019-01-16 10:07 | Outpatient (CLI) | payer MEDICARE, SELFPAY ==
[2018-10-11 22:56] VITALS: BMI 22.6
[2019-01-16 11:26] LABS: International Normalized Ratio 2.4; Prothrombin Time (Protime)PT. 26.4 SECONDS (11.7-14.9)
== END ==
PROVIDERS: Family Provider Family Medicine; PCP Family Medicine; Referring Provider Nurse Practitioner Primary Care; Visit Provider Nurse Practitioner Primary Care
DX: E87.5 Hyperkalemia (principal); I48.91 Unspecified atrial fibrillation; I05.0 Rheumatic mitral stenosis
CPT/HCPCS: 36415; 84132; 85610

== ENCOUNTER → 2019-02-01 15:25 | Outpatient (CLI) | payer MEDICARE, SELFPAY ==
[2018-10-11 22:56] VITALS: BMI 22.6
[2019-02-01 15:45] LABS: Prothrombin Time (Protime)PT. 40.2 SECONDS (11.7-14.9)
[2019-02-01 15:58] LABS: International Normalized Ratio 4.1
[2019-02-01 16:03] LABS: AST(SGOT) 17 U/L (15-37); Alanine Aminotransfer ALT/SGPT 17 U/L (13-56); Magnesium 2.4 mg/dL (1.6-2.6); Thyroid Stim Hormone (TSH) 1.46 uIU/mL (0.358-3.74)
[2019-02-01 17:29] LABS: Creatinine, Urine (random) < 13.00 mg/dL (NO RANGE EST.); Microalbumin,Random Urine 33.3 mg/L (NO RANGE EST.)
== END ==
PROVIDERS: Family Provider Family Medicine; PCP Family Medicine; Referring Provider Family Medicine; Visit Provider Family Medicine
DX: Z79.899 Other long term (current) drug therapy (principal); I48.91 Unspecified atrial fibrillation
CPT/HCPCS: 82043; 82570; 83735; 84443; 84450; 84460; 85610

== ENCOUNTER → 2019-02-05 14:26 | Outpatient (CLI) | payer MEDICARE, SELFPAY ==
[2018-10-11 22:56] VITALS: BMI 22.6
[2019-02-06 10:41] LABS: Prothrombin Time Fingerstick 31.7 SEC (11.9-14.4)
== END ==
PROVIDERS: Family Provider Family Medicine; PCP Family Medicine; Referring Provider Family Medicine; Visit Provider Family Medicine
DX: I48.91 Unspecified atrial fibrillation (principal)
CPT/HCPCS: 36416; 85610

== ENCOUNTER → 2019-02-12 12:41 | Outpatient (CLI) | payer MEDICARE, SELFPAY ==
[2019-02-05 14:43] VITALS: BMI 24.9
== END ==
PROVIDERS: Family Provider Family Medicine; PCP Family Medicine; Referring Provider Physician Assistant Medical; Visit Provider Physician Assistant Medical
DX: R00.1 Bradycardia, unspecified (principal)
CPT/HCPCS: 93225; 93226

== ENCOUNTER → 2019-02-23 15:11 | Outpatient (CLI) | payer MEDICARE, SELFPAY ==
[2019-02-12 11:45] VITALS: BMI 24.9
[2019-02-23 16:56] LABS: ALB/GLOB Ratio 1.2 RATIO (0.9-2.4); AST(SGOT) 10 U/L (15-37); Alanine Aminotransfer ALT/SGPT 21 U/L (13-56); Alkaline Phosphatase 84 U/L (45-117); Anion Gap 7 (5-15); BUN 26 mg/dL (7-18); BUN/Creat Ratio 30.1 RATIO (10-20); Calcium,Total 9.6 mg/dL (8.5-10.1); Chloride 104 mmol/L (98-107); Creatinine, Serum 0.86 mg/dL (0.55-1.02); EST Glomerular Filtration Rate 67 mL/min (>60); Est Glom Filt Rate - Afr Amer 81 mL/min (>60); Globulin 3.2 g/dL (2.2-4.2); Glucose 114 mg/dL (74-106); Protein, Total 7.2 g/dL (6.4-8.2); Sodium Level 138 mmol/L (136-145)
== END ==
PROVIDERS: Family Provider Family Medicine; PCP Family Medicine; Referring Provider Family Medicine; Visit Provider Family Medicine
DX: Z79.899 Other long term (current) drug therapy (principal)
CPT/HCPCS: 36415; 80053

== ENCOUNTER → 2019-03-02 17:35 | Outpatient (CLI) | payer MEDICARE, SELFPAY ==
[2019-02-12 11:45] VITALS: BMI 24.9
[2019-03-02 18:48] LABS: International Normalized Ratio 2.1; Prothrombin Time (Protime)PT. 23.2 SECONDS (11.7-14.9)
[2019-03-02 19:12] LABS: ALB/GLOB Ratio 1.3 RATIO (0.9-2.4); AST(SGOT) 18 U/L (15-37); Alanine Aminotransfer ALT/SGPT 16 U/L (13-56); Albumin, Serum 4.2 g/dL (3.2-5.0); Alkaline Phosphatase 88 U/L (45-117); Anion Gap 6 (5-15); BUN 25 mg/dL (7-18); BUN/Creat Ratio 30.8 RATIO (10-20); Calcium,Total 9.2 mg/dL (8.5-10.1); Chloride 104 mmol/L (98-107); Creatinine, Serum 0.81 mg/dL (0.55-1.02); EST Glomerular Filtration Rate 72 mL/min (>60); Est Glom Filt Rate - Afr Amer 87 mL/min (>60); Globulin 3.3 g/dL (2.2-4.2); Glucose 86 mg/dL (74-106); Potassium 4.3 mmol/L (3.5-5.1); Protein, Total 7.5 g/dL (6.4-8.2); Sodium Level 136 mmol/L (136-145)
== END ==
PROVIDERS: Family Provider Family Medicine; PCP Family Medicine; Referring Provider Family Medicine; Visit Provider Family Medicine
DX: I48.91 Unspecified atrial fibrillation (principal)
CPT/HCPCS: 36415; 80053; 85610

== ENCOUNTER → 2019-04-08 15:49 | Outpatient (CLI) | payer MEDICARE, SELFPAY ==
[2019-02-12 11:45] VITALS: BMI 24.9
[2019-04-08 16:28] LABS: Prothrombin Time (Protime)PT. 30.9 SECONDS (11.7-14.9)
== END ==
PROVIDERS: Family Provider Family Medicine; PCP Family Medicine; Referring Provider Family Medicine; Visit Provider Family Medicine
DX: I05.0 Rheumatic mitral stenosis (principal); Z79.01 Long term (current) use of anticoagulants; Z95.2 Presence of prosthetic heart valve
CPT/HCPCS: 85610

== ENCOUNTER → 2019-05-21 | Outpatient (CLI) | payer MEDICARE, SELFPAY ==
[2019-02-12 11:45] VITALS: BMI 24.9
[2019-05-21 17:41] LABS: Hematocrit 42.1 % (37-47); Hemoglobin 14.1 g/dL (12.0-15.0); Mean Corp Hgb Conc 33.5 g/dL (32-36); Mean Corpuscular Hgb 32.9 pg (27.0-32.0); Mean Corpuscular Volume 98.1 fL (81-99); Mean Platelet Vol. 9.8 fl (6.2-12.0); Platelet Count 278 K/mm3 (150-450); RBC Distribution Width CV 13.9 % (11.6-14.6); RBC Distribution Width SD 50.2 fl (35.1-43.9); Red Blood Count 4.29 M/mm3 (4.2-5.4); White Blood Count 5.7 K/mm3 (4.4-11.0)
[2019-05-21 17:48] LABS: International Normalized Ratio 2.5; Prothrombin Time (Protime)PT. 26.9 SECONDS (11.7-14.9)
[2019-05-21 18:01] LABS: ALB/GLOB Ratio 1.2 RATIO (0.9-2.4); AST(SGOT) 25 U/L (15-37); Alanine Aminotransfer ALT/SGPT 28 U/L (13-56); Albumin, Serum 4.2 g/dL (3.2-5.0); Alkaline Phosphatase 86 U/L (45-117); Anion Gap 7 (5-15); BUN 19 mg/dL (7-18); BUN/Creat Ratio 23.9 RATIO (10-20); Calcium,Total 9.8 mg/dL (8.5-10.1); Chloride 104 mmol/L (98-107); Cholesterol 206 mg/dL (200); EST Glomerular Filtration Rate 74 mL/min (>60); Est Glom Filt Rate - Afr Amer 89 mL/min (>60); Globulin 3.5 g/dL (2.2-4.2); Glucose 117 mg/dL (74-106); High Density Lipoprotein 43 mg/dL; Protein, Total 7.7 g/dL (6.4-8.2); Sodium Level 138 mmol/L (136-145); Triglycerides 223 mg/dL; Very Low Density Lipoprotein 45 mg/dL (5-40)
== END | disposition home or self-care (01) ==
LOC: LABSPEC 16:53
PROVIDERS: PCP Family Medicine; Referring Provider Family Medicine; Visit Provider Family Medicine
DX: I48.91 Unspecified atrial fibrillation (principal); I50.9 Heart failure, unspecified; Z79.01 Long term (current) use of anticoagulants
CPT/HCPCS: 80053; 80061; 85027; 85610

== ENCOUNTER → 2021-01-19 | Outpatient (CLI) | payer MEDICARE, SELFPAY ==
[2021-01-19 16:37] LABS: AST(SGOT) 26 U/L (15-37); Alanine Aminotransfer ALT/SGPT 24 U/L (13-56); Albumin, Serum 3.7 g/dL (3.2-5.0); Alkaline Phosphatase 65 U/L (45-117); Anion Gap 3 (5-15); BUN 20 mg/dL (7-18); BUN/Creat Ratio 33.2 RATIO (10-20); Calcium,Total 9.6 mg/dL (8.5-10.1); Chloride 106 mmol/L (98-107); Cholesterol 193 mg/dL (200); EST Glomerular Filtration Rate 101 mL/min (>60); Est Glom Filt Rate - Afr Amer 122 mL/min (>60); Globulin 3.6 g/dL (2.2-4.2); Glucose 112 mg/dL (74-106); High Density Lipoprotein 46 mg/dL; Protein, Total 7.3 g/dL (6.4-8.2); Sodium Level 141 mmol/L (136-145); Triglycerides 210 mg/dL; Very Low Density Lipoprotein 42 mg/dL (5-40)
== END | disposition home or self-care (01) ==
LOC: LABSPEC 16:06
PROVIDERS: PCP Family Medicine; Visit Provider Family Medicine
DX: E78.00 Pure hypercholesterolemia, unspecified (principal)
CPT/HCPCS: 80053; 80061

== ENCOUNTER 2021-11-27 17:13 | Inpatient (IN) | payer MEDICARE, SELFPAY ==
[2021-11-27] VITALS (7 sets, daily range): BP systolic 121–141; BP diastolic 46–76; PULSE 65–76; RESP 16–20; TEMP 36.5–37; O2SAT 92–100; BMI 26.4; BMI 26.2
--- NOTE | 2021-11-27 17:51 | EKG12_ITS ---
Test Reason : SOB Blood Pressure : / mmHG Vent. Rate : 074 BPM Atrial Rate : 046 BPM P-R Int : 000 ms QRS Dur : 132 ms QT Int : 450 ms P-R-T Axes : 000 031 -29 degrees QTc Int : 499 ms Atrial fibrillation Non-specific intra-ventricular conduction block Nonspecific T wave abnormality Abnormal ECG Confirmed by ANTONIO HIGUERA, CATHY ([id number]), features editor DULCE STEVE ([id number]) on 11/29/2021 1:24:37 PM Referred By: DION Confirmed By:DEL ALVAREZ MD
--- NOTE | 2021-11-27 17:51 | EDS_ITS ---
HPI History of Present Illness Chief Complaint: Shortness of Breath Detail of Chief Complaint: Shortness of breath x2 to 3 days Informant: patient and family Narrative Narrative: Patient is the emergency department via EMS with complaint shortness of breath for last 2 to 3 days. Patient has been getting Lasix in the morning and it typically seems to help her a little bit. Today she was more short of breath. She started with a little bit of a cough and a runny nose today. She denies COVID exposures. She has not had the COVID-vaccine. Patient denies any chest pain. Patient does have history of CHF. Patient has history of prior mitral valve replacement and she is on Coumadin. Patient not on home oxygen. [facility] Medical History (Updated 11/27/21 @ 19:[address] Rosalia Reynolds, ) Atrial fibrillation Cardiomyopathy Cirrhosis Diabetes mellitus History of CVA (cerebrovascular accident) Hyperlipidemia Hypertension correction (current) use of anticoagulants Pulmonary hypertension Home Medications nitroglycerin 0.4 mg sublingual tablet 0.4 mg sublingual Q5M PRN Chest Pain #25 tabs 08/01/17 [Rx Last Taken Unknown] acetaminophen 500 mg tablet 500 mg PO Q6H PRN PRN Mild Pain (1-3) 10/21/17 [Rx Last Taken Unknown] furosemide 40 mg tablet (Lasix) 20 mg PO DAILY 02/05/19 [History Last Taken Unk nown] lisinopril 2.5 mg tablet 2.5 mg PO DAILY blood pressure 02/05/19 [History Last Taken Unknown] potassium chloride 10 mEq tablet,extended release 10 meq PO DAILY 05/28/19 [History Last Taken Unknown] potassium 99 mg tablet 99 mg PO DAILY 11/27/21 [History Last Taken Unknown] warfarin 2 mg tablet 2 mg PO SUWE 11/27/21 [History Last Taken Unknown] warfarin 3 mg tablet 3 mg PO MOTUTHFRSA 11/27/21 [History Last Taken Unknown] Allergy/AdvReac Type Severity Reaction Status Date / Time cortisone Allergy Unknown Verified 11/27/21 17:17 Family History Father CAD (coronary artery disease) Sudden cardiac , Onset Age: 68 Surgical History H/O mitral valve replacement with mechanical valve Hx of appendectomy Social History (Updated 06/01/19 @ 12:09 by Siri RUFF, PA) Smoking Status: Never smoker alcohol intake: never substance use type: does not use caffeine: Yes Type: coffee ROS ROS ED Review of Systems ROS Unobtainable: other Constitutional Constitutional ED: Reports lethargy; Denies chills, fever(s), sweats or weight loss Eyes Eyes: Denies blurry vision, change in vision or diplopia ENT ENT ED: Denies rhinorrhea or sore throat Cardiovascular Cardiovascular: Denies chest pain, orthopnea or racing heartbeat Respiratory/Chest Respiratory/Chest: Reports cough, dyspnea and dyspnea on exertion; Denies orthopnea or sputum Gastrointestinal Gastrointestinal: Denies abdominal pain, diarrhea, nausea or vomiting Genitourinary Genitourinary ED: Denies dysuria, hematuria or urinary frequency Musculoskeletal Musculoskeletal: Denies arthralgias, back pain, myalgias or neck pain Integumentary Denies abscess, Abrasions or rash Neurologic Neurologic: Denies headache(s) or weakness Psychiatric Psychiatric: Denies anxiety, depression or suicidal thoughts Endocrine Endocrinology: Denies polydipsia, polyphagia or polyuria Hematologic/Lymphatic Hematologic/Lymphatic: Denies easy bleeding, easy bruising or lymphadenopathy Allergic/Immunologic Allergic/Immunologic ED: Denies mouth swelling, tongue swelling or urticaria EXAM Physical Exam Const Vital Signs: 11/27/21 17:14 11/27/21 17:28 11/27/21 19:05 Temperature 98.6 F Temperature Source Temporal Pulse Rate 70 69 Respiratory Rate 18 Respiratory Effort Normal Non-Labored Respiratory Depth Normal Respiratory Pattern Normal Blood Pressure 141/76 H 124/48 H Blood Pressure Mean 97 73 Pulse Ox 95 Oxygen Delivery Method Room Air Positive well nourished and well developed General Appearance ED: well developed and NAD HEENT Reports TM's clear and moist mucous membranes normocephalic and atraumatic; Negative for trauma or tenderness Tympanic Membrane ED: Yes TM's clear Eyes PERRL and EOMs intact bilaterally General Eye ED: Negative for pale conjunctiva or scleral icterus Neck no lymphadenopathy, supple and no JVD General: Negative for tenderness Chest Wall inspection of chest normal and palpation of chest normal Chest: Negative for tenderness Resp normal respiratory effort Resp Narrative: Patient with rales in both bases left greater than right. Mild tachypnea. No accessory muscle use or retractions. No significant conversational dyspnea. Effort and Inspection: Negative for respiratory distress or pain with movement Auscultation: rales and diminished lung sounds Cardio regular rate, regular rhythm, S1 normal heart sound, S2 normal heart sound and no murmurs Peripheral Pulses: pulses 2+ throughout GI normal to inspection, nondistended, normoactive bowel sounds, soft to palpation, non-tender, non-distended and no masses Back/Spine no CVA tenderness and no thoracic nor lumbar tenderness Extremity normal to inspection Extremity Narrative: +2 edema both lower extremities and symmetric. General Extremety ED: Yes edema General Extremity: edema Neuro oriented x3, CN's II-XII intact bilaterally, no sensory deficits noted and gait normal Sensorium / Orientation: awake, alert, oriented to person, oriented to place and oriented to time Motor Exam: strength 5/5 throughout and strength abnormal Psych mental status grossly normal Skin no rashes or lesions noted and no wounds MDM MDM MDM Narrative Medical decision making narrative: IV line established on arrival. Lab work-up was consistent with a significant anemia with a hemoglobin of 7.3. Patient's chemistries were unremarkable. BNP was 88. Chest x-ray obtained showed bilateral pleural effusions. COVID-19 testing was negative. This point Case will be discussed with hospitalist evaluate patient for admission. I do not think clinically she has pneumonia. Lab Data Attestation: I reviewed the patient's lab results. Labs: Laboratory Results - last 24 hr 11/27/21 11/27/21 11/27/21 17:20 17:20 17:20 WBC 7.3 RBC 3.07 L Hgb 7.3 L Hct 25.8 L MCV 84.0 MCH 23.8 L MCHC 28.3 L RDW Std Deviation 53.8 H RDW Coeff of Bharathi 17.5 H Plt Count 446 MPV 10.3 Immature Gran % (Auto) 0.300 Neut % (Auto) 70.2 H Lymph % (Auto) 16.5 L [place] % (Auto) 11.6 H Eos % (Auto) 1.0 Baso % (Auto) 0.4 Absolute Neuts (auto) 5.1 Absolute Lymphs (auto) 1.20 Nucleated RBC % 0.3 Sodium 139 Potassium 3.4 L Chloride 104 Carbon Dioxide 30.0 Anion Gap 5 BUN 20 H Creatinine 0.58 Estim Creat Clear Calc 33.71 Est GFR (MDRD) Af Amer 128 Est GFR (MDRD) Non-Af 105 BUN/Creatinine Ratio 34.5 H Glucose 112 H Calcium 8.0 L Troponin I High Sens 22 B-Natriuretic Peptide 88.0 Radiography Chest X-Ray - ED: 1 View Diagnostic Testing: Clinical Impression(s) from Imaging Studies Chest X-Ray 11/27/21 18:00 IMPRESSION: Cardiomegaly bilateral effusions with bilateral lower lobe atelectasis or pneumonia. Electronically Signed: Reji Greer MD at 18:45 EDT , 1 view chest ray obtained interpreted by myself as bilateral effusions with some mild cardiomegaly. Radiology felt there was cardiomegaly with bilateral effusions with bilateral lower lobe atelectasis or pneumonia. EKG Initial EKG: Attestation: I personally reviewed and interpreted this EKG as follows: Comments: Atrial fibrillation with rate of 74 bpm with PVCs and nonspecific ST changes Discharge Plan Triage Chief Complaint: Shortness of Breath ED Provider: Rosalia Reynolds Dx/Rx/DC Orders Clinical Impression: Acute dyspnea, Weakness, Pleural effusion, Anemia Prescriptions: No Action nitroglycerin 0.4 mg tablet, sublingual 0.4 mg SUBLINGUAL Q5M PRN (Reason: Chest Pain) Qty: 25 0RF potassium chloride 10 mEq tablet extended release 10 meq PO DAILY acetaminophen 500 MG tablet 500 mg PO Q6H PRN PRN (Reason: Mild Pain (-06/14)) 0RF lisinopril 2.5 mg tablet 2.5 mg PO DAILY potassium 99 mg Tablet 99 mg PO DAILY warfarin 3 mg Tablet 3 mg PO MOTUTHFRSA warfarin 2 mg Tablet 2 mg PO SUWE furosemide [Lasix] 40 mg tablet 20 mg PO DAILY Primary Care Provider: Warren Mendoza Referrals: Warren Mendoza MD [Primary Care Provider] - Disposition Disposition: [facility]
--- NOTE | 2021-11-27 18:00 | RAD_ITS ---
EXAM: XR CHEST, 1 VIEW CLINICAL INDICATION: dyspnea TECHNIQUE: Frontal view of the chest. This report was created using [employer] report generation technology. COMPARISON: 10/09/2018 FINDINGS: LUNGS AND PLEURAL SPACES: There are bilateral pleural effusions with bilateral airspace disease. No pneumothorax. HEART: Cardiac silhouette is enlarged in size. MEDIASTINUM: Central airways and mediastinal contour are unremarkable. BONES/JOINTS: Unremarkable. SOFT TISSUES: Unremarkable. RAD/Chest 1 View (Portable) IMPRESSION: Cardiomegaly bilateral effusions with bilateral lower lobe atelectasis or pneumonia. Electronically Signed: Reji Greer MD at 18:45 EDT ,
[2021-11-27 18:04] LABS: Absolute Neutrophil Count 5.1 X10^3/uL (2.0-7.7); Basophil# 0.03 X10^3/uL; Basophil% 0.4 % (0-1); Eosinophil# 0.07 X10^3/uL; Hematocrit 25.8 % (37-47); Hemoglobin 7.3 g/dL (12.0-15.0); Lymphocyte % 16.5 % (19-41); Mean Corp Hgb Conc 28.3 g/dL (32-36); Mean Corpuscular Hgb 23.8 pg (27.0-32.0); Mean Platelet Vol. 10.3 fl (6.2-12.0); Monocyte# 0.84 X10^3/uL; Monocyte% 11.6 % (0-10); NRBC Flagged by Analyzer 0.3 % (0-5); Neutrophil # 5.11 X10^3/uL (2.7-7.7); Neutrophil % 70.2 % (47-70); Platelet Count 446 K/mm3 (150-450); RBC Distribution Width CV 17.5 % (11.6-14.6); RBC Distribution Width SD 53.8 fl (35.1-43.9); Red Blood Count 3.07 M/mm3 (4.2-5.4); White Blood Count 7.3 K/mm3 (4.4-11.0)
[2021-11-27 18:22] LABS: Anion Gap 5 (5-15); BUN 20 mg/dL (7-18); BUN/Creat Ratio 34.5 RATIO (10-20); Chloride 104 mmol/L (98-107); Creatinine, Serum 0.58 mg/dL (0.55-1.02); EST Glomerular Filtration Rate 105 mL/min (>60); Est Glom Filt Rate - Afr Amer 128 mL/min (>60); Estimated Creatinine Clearance 33.71 ml/min; Glucose 112 mg/dL (74-106); Potassium 3.4 mmol/L (3.5-5.1); Sodium Level 139 mmol/L (136-145); Troponin-I HS 22 pg/mL (3.0-54.0)
--- NOTE | 2021-11-27 20:03 | HP.PCM.HOS_ITS ---
HPI - General General Date of Admission: 11/27/21 Date of Service: 11/27/21 Chief Complaint: Dyspnea. 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 ED on 11/27/21 with history of shortness of breath progressively worsening the last 2 to 3 days with some improvement following her Lasix however on day of presentation did not seem to be as effective with fatigue and lethargy as well as mild cough with no specific COVID exposure however she denies having had the COVID-vaccine with no concurrent orthopnea, chest pain given not improving prompted ED evaluation. She does report that her dyspnea is worse with exertion. She does states that her lower extremity swelling is worsened than prior. She has for the last several days to weeks also been sleeping in a recliner instead of a bed but states that she is able to lay down and denies orthopnea however from discussion suspect that she has some component of this. She does not track her weights and is unsure if she has gained weight. Work-up in the ED included T98.6, heart rate 70, BP initially 141/76 with most recent repeat 124/48, respiratory rate 18, 95% on room air, CBC with WC 7.3, hemoglobin 7.3, MCV 84, platelet 446 without marked shift, BMP with potassium 3.4, BUN/creat 20/0.58, glucose 112, troponin 22, BNP 88, chest x-ray with cardiomegaly with bilateral effusions with bilateral lower lobe atelectasis or pneumonia, EKG with rate controlled atrial fibrillation with nonspecific ST changes, rapid COVID antigen negative, blood culture x2 pending per ED. [facility] Medical History (Updated 11/27/21 @ 20:[address] Genesis Casas MD) Anxiety and depression Atherosclerotic heart disease of [place] coronary artery without angina pectoris Atrial fibrillation Chronic systolic congestive heart failure Cirrhosis Diabetes mellitus GERD (gastroesophageal reflux disease) History of CVA (cerebrovascular accident) Hyperlipidemia Hypertension half-way (current) use of anticoagulants Pulmonary hypertension Home Medications nitroglycerin 0.4 mg sublingual tablet 0.4 mg sublingual Q5M PRN Chest Pain #25 tabs 08/01/17 [Rx Last Taken Unknown] acetaminophen 500 mg tablet 500 mg PO Q6H PRN PRN Mild Pain (-06/14) 10/21/17 [Rx Last Taken Unknown] furosemide 40 mg tablet (Lasix) 20 mg PO DAILY 02/05/19 [History Last Taken Unknown] lisinopril 2.5 mg tablet 2.5 mg PO DAILY blood pressure 02/05/19 [History Last Taken Unknown] potassium 99 mg tablet 99 mg PO DAILY 11/27/21 [History Last Taken Unknown] warfarin 2 mg tablet 2 mg PO SUWE 11/27/21 [History Last Taken Unknown] warfarin 3 mg tablet 3 mg PO MOTUTHFRSA 11/27/21 [History Last Taken Unknown] Allergy/AdvReac Type Severity Reaction Status Date / Time cortisone Allergy Unknown Verified 11/27/21 17:17 Family History Father CAD (coronary artery disease) Sudden cardiac , Onset Age: 68 other (Denies any marked maternal family history including HD, DM, CA.) Surgical History (Updated 11/27/21 @ 20:[address] Genesis Casas MD) H/O mitral valve replacement with mechanical valve History of angioplasty Hx of appendectomy Social History (Updated 11/27/21 @ 20:[address] Genesis Casas MD) household members: other details: Lives with her son. Smoking Status: Never smoker alcohol intake: never substance use type: does not use caffeine: Yes Type: coffee ROS ROS Narrative Admission Review of Systems: CONSTITUTIONAL: No weight loss, fever, chills, + weakness or fatigue. HEENT: Eyes: No visual loss, blurred vision, double vision or yellow sclerae. Ears, Nose, Throat: No hearing loss, sneezing, congestion, runny nose or sore throat. SKIN: No rash or itching, lesions, wounds. CARDIOVASCULAR: + Edema, ? orthopnea. No chest pain, chest pressure or chest discomfort, palpitations, syncopal events. RESPIRATORY: + shortness of breath, cough without marked sputum, No wheezing, hemoptysis. GASTROINTESTINAL: + anorexia, No nausea, vomiting or diarrhea, abdominal pain, melena, BRBPR. GENITOURINARY: No dysuria, frequency, urgency or retention. NEUROLOGICAL: No headache, dizziness, syncope, paralysis, ataxia, numbness or tingling in the extremities, focal weakness, change in bowel or bladder control, seizure. MUSCULOSKELETAL: + muscle, back pain, joint pain or stiffness. HEMATOLOGIC: + anemia, bleeding or bruising. LYMPHATICS: No enlarged nodes. No history of splenectomy. PSYCHIATRIC: + history of depression or anxiety. ENDOCRINOLOGIC: No reports of sweating, cold or heat intolerance. No polyuria or polydipsia. ALLERGIES: No history of asthma, hives, eczema or rhinitis. Vital Signs Vital Signs Vital Signs: 11/27/21 17:14 11/27/21 17:28 11/27/21 19:05 Temperature 98.6 F Temperature Source Temporal Pulse Rate 70 69 Respiratory Rate 18 Respiratory Effort Normal Non-Labored Respiratory Depth Normal Respiratory Pattern Normal Blood Pressure 141/76 H 124/48 H Blood Pressure Mean 97 73 Pulse Ox 95 Oxygen Delivery Method Room Air Weight Weight: 144 lb 13.499 oz Body Mass Index (BMI) 26.4 Physical Exam Narrative Physical Examination: General: Awake, alert, oriented x 3, soft spoken, cooperative, seated upright in the ED bed in no apparent distress, fatigued, no evidence of any respiratory distress. Skin: Normal color, normal turgor, no icterus, no cyanosis. HEENT: AT/NC, EOMI, PERRLA, MMM, no carotid bruits, +JVD noted. Lungs: Diminished, greater bases, mild rales at bases, no evidence of respiratory distress, moderate effort, no rhonchi or wheezing. Heart: Irregular, rate controlled; no gallop, rub audible, + click. Abdomen: Soft, NTTP, mildly to moderately distended but she notes this is chronic, no specific fluid wave, just normal BS, unable to discern HSM Extremities: No cyanosis, no clubbing, 2+ pedal to proximal thigh pitting edema bilaterally Neurological: Patient awake, alert, oriented as noted, cognitive function intact ; pupils equally reactive to light and accommodation, cranial nerves II-XII grossly normal, moving all 4 extremities, no focal deficits, strength moderately to severely global decrease secondary to acute complaints Psychiatric: Affect appears fatigued otherwise normal, no acute evidence of depressive or anxiety feelings. Results Lab / Micro Data Result Diagrams: 11/27/21 17:20 11/27/21 17:20 Labs: Laboratory Results - last 24 hr 08/23/22 17:20: WBC 7.3, RBC 3.07 L, Hgb 7.3 L, Hct 25.8 L, MCV 84.0, MCH 23.8 L , MCHC 28.3 L, RDW Std Deviation 53.8 H, RDW Coeff of Bharathi 17.5 H, Plt Count 446, MPV 10.3, Immature Gran % (Auto) 0.300, Neut % (Auto) 70.2 H, Lymph % (Auto) 16.5 L, [place] % (Auto) 11.6 H, Eos % (Auto) 1.0, Baso % (Auto) 0.4, Absolute Neuts (auto) 5.1, Absolute Lymphs (auto) 1.20, Nucleated RBC % 0.3 11/27/21 17:20: Sodium 139, Potassium 3.4 L, Chloride 104, Carbon Dioxide 30.0, Anion Gap 5, BUN 20 H, Creatinine 0.58, Estim Creat Clear Calc 33.71, Est GFR (MDRD) Af Amer 128, Est GFR (MDRD) Non-Af 105, BUN/Creatinine Ratio 34.5 H, Glucose 112 H, Calcium 8.0 L, Troponin I High Sens 22 11/27/21 17:20: B-Natriuretic Peptide 88.0 Micro: Microbiology 11/27/21 17:55 Nasal Secretion SARS-CoV-2 & FLU Antigen (Rapid) - Final Radiology Impression Chest X-Ray 11/27/21 18:00 IMPRESSION: Cardiomegaly bilateral effusions with bilateral lower lobe atelectasis or pneumonia. Electronically Signed: Reji Greer MD at 18:45 EDT , Assessment & Plan Assessment/Plan (1) Anemia: PLAN: Plan The patient is an 81 y/o F w/ PMHx: CAD, Hx CVA, HTN, HLD, Diabetes mellitus type II, Cirrhosis unclear type, PAF, Valvular Heart Disease s/p MVR with mechanical valve and TV repair on coumadin, Chronic anemia, Chronic Systolic CHF who presents to the [facility] ED on 11/27/21 with history of shortness of breath progressively worsening the last 2 to 3 days with some improvement following her Lasix however on day of presentation did not seem to be as effective with fatigue and lethargy as well as mild cough with no specific COVID exposure however she denies having had the COVID-vaccine with no concurrent orthopnea, chest pain given not improving prompted ED evaluation. #1. Dyspnea, suspect multifactorial including Acute on prior chronic anemia, unclear specific etiology, normocytic and #2, potentially also #3: Admission hemoglobin 7.3, had in the past previously been low however normalized since 01/11/2019, most recent prior 05/21/2019 hemoglobin 14.1, likely contributing to dyspnea presentation, will request 1 unit PRBC administration, will dose with IV Lasix especially given effusions with administration, maintain n.p.o. status pending further evaluation of cause, guaiac requested, will cycle H&H's to be cautious, maintain on IV PPI, request gastroenterology evaluation. #2. Chronic systolic CHF with bilateral effusions, possible Viral illness (lower suspicion), Possible PNA (lower suspicion): Suspect patient's presentation more likely secondary to her worsened anemia as noted, will dose with IV Lasix x1 as noted with PRBC and an addition x 1 with then transition back to her oral lasix, continue Coumadin with INR trending pending evaluatoin #1 as noted, lisinopril, not on beta-lili, add low dose statin therapy. Echocardiogram requested. We will cycle cardiac enzymes to be cautious. TSH requested. COVID PCR also requested given dyspnea complaints. Procalcitonin requested. Respiratory viral panel requested. Urinary antigens requested as well as sputum Cx if able to obtain. #3. Cirrhosis, Nonalcoholic, noted in history, poor historian on this history, Possible Decompensation: Hepatic profile requested, will continue as noted plan for IV lasix coupled with PRBC administration, snug [place] wraps, elevation, edema from toes to proximal thighs bilaterally, acute on chronic. GI consulted as n oted. If significant LFT elevations will need to discontinue recently initiated statin low-dose therapy is noted. #4. Hypokalemia: Admission K+ 3.4, magnesium level requested, supplementation given, repeat level in AM. #5. Valvular heart disease: Status post MVR with mechanical valves and TV re pair, continue Coumadin with INR trending. 10/10/2018 echocardiogram with mild segmental systolic dysfunction, EF 45%, severely enlarged LA and RA, stable appearing mechanical mitral valve apparatus, trivial transvalvular insufficiency of the mitral valve, annuloplasty ring noted in the tricuspid position, mild tricuspid valve insufficiency, trivial AV insufficiency, trivial PV insufficiency, RVSP 32 mmHg, unable to assess diastolic dysfunction. Repeat ECHO requested. #6. CAD: Patient reports history of PCI however last cardiology progress note 10/15/2018 reports non-angiographically significant however it certainly could have arisen since then, will continue coumadin with INR trending pending further evaluation #1, continue lisinopril, add low dose statin, not on BB therapy. #7. Diabetes mellitus type II: From current list not on regimen, hemoglobin A1c requested be cautious, ADA diet, accu checks w/ ISS. #8. Hypertension: Continue home regimen including lisinopril, Lasix as noted with hold parameters as needed, PRN hydralazine. #9. Hyperlipidemia: Add low dose statin therapy, defer to outpatient. #10. History CVA: Given mechanical valve continue Coumadin with INR trending pending further evaluation #1 as noted, hypertensive regimen, add low dose statin therapy, HgBA1c pending as noted. #11. PAF: We will continue patient home Coumadin with INR trending, not on rate or rhythm agent, currently rate controlled. #12. DVT prophylaxis: SCDs, given mechanical valve will continue pending anemia etiology, trending INR. If concerns arise may need to hold and transition to heparin drip. #13. CODE status: Patient HUMA is her son she notes and living will is currently in place. Discussed CODE status at length including difference between FULL code, DNR-CCA and DNR-CC status. Following discussions about the differences in these status, requested DNR-CCA, no intubation, no aggressive interventions. Advanced Care Planning Face to Face Time: 16 minutes. Charges/Coding Visit Charges Inpatient E&M: 41915 Init Hosp L3 Procedures Hospitalists Procedures: 59228 Advncd Care Plan 30 Min
[2021-11-27 20:34] LABS: International Normalized Ratio 2.5; Prothrombin Time (Protime)PT. 26.3 SECONDS (11.7-14.9)
[2021-11-27 20:43] LABS: AST(SGOT) 28 U/L (15-37); Alanine Aminotransfer ALT/SGPT 16 U/L (13-56); Alkaline Phosphatase 43 U/L (45-117); Bilirubin, Direct 0.06 mg/dL (0.00-0.30); Globulin 2.1 g/dL (2.2-4.2); Magnesium 2.4 mg/dL (1.6-2.6); Protein, Total 4.1 g/dL (6.4-8.2)
[2021-11-27 21:11] LABS: Procalcitonin < 0.01 ng/mL (0.00-0.09)
[2021-11-27] MEDS: Furosemide 40 MG/4 ML Vial IV (22:41)
[2021-11-27] MEDS: Potassium Chloride Oral Tablet 20 MEQ 40 MEQ PO (22:41)
[2021-11-27] MEDS: 0.9% Saline Lock 10 ML Syringe IV (22:45)
[2021-11-27] MEDS: Atorvastatin Calcium 10 MG Tablet PO (22:45)
[2021-11-27 22:59] LABS: Vitamin B12 229 pg/mL (211-911)
[2021-11-27 23:12] LABS: Troponin-I HS 24 pg/mL (3.0-54.0)
[2021-11-27 23:16] LABS: Ferritin 4 ng/mL (8-252); Iron 15 ug/dL (50-170); Iron Binding Capacity,Total 349 ug/dL (250-450); PERCENT IRON SATURATION 4.3 % (15.0-55.0)
[2021-11-27 23:25] LABS: Bedside Glucose 116 mg/dL (74-106)
[2021-11-28] VITALS (13 sets, daily range): BP systolic 118–131; BP diastolic 54–82; PULSE 59–88; RESP 16–22; TEMP 36.6–36.8; O2SAT 93–100
[2021-11-28 00:03] LABS: M R Staph aureus DNA By PCR Negative (Negative); Probe Check PASS; Specimen Processing Control PASS
[2021-11-28 02:21] LABS: Hemoglobin 8.1 g/dL (12.0-15.0)
[2021-11-28 02:40] LABS: Troponin-I HS 25 pg/mL (3.0-54.0)
--- NOTE | 2021-11-28 05:55 | ECHOD_ITS ---
Reason For Study: CHF Procedure This was a 2D Doppler, Color Flow transthoracic echocardiogram. The exam was of adequate technical quality. Exam performed portable in patient room. Left Ventricle Normal LV size. Mild segmental systolic dysfunction (see wall motion). The estimated ejection fraction is 45 %. Unable to assess diastolic dysfunction. Infero-Basal: Hypokinetic. Basal inferoseptal: Hypokinetic. Mid-Lateral : Hypokinetic. Mid-Inferior: Hypokinetic. Mid-inferoseptal : Hypokinetic. Mid-anteroseptal : Hypokinetic. Inferior [place] : Hypokinetic. Septal [place] : Hypokinetic. Right Ventricle Normal RV size. Normal systolic function. Atria The left atrium is severely enlarged. The right atrium is severely enlarged. No doppler evidence for ASD. Mitral Valve Stable appearing mechanical mitral valve apparatus. Trivial transvalvular insufficiency of the mitral valve. Tricuspid Valve Right ventricular systolic pressure estimated to be 55 mmHg. An annuloplasty ring is noted in the tricuspid position. Moderate transvalvular insufficiency of the tricuspid valve. Aortic Valve Trisinus/trileaflet aortic valve. Mild diffuse aortic valve thickening. Mild focal aortic valve calcification. Pulmonic Valve The pulmonic valve is not well visualized. Trivial pulmonic valve insufficiency. Great Vessels Normal sized aortic root. Pericardium/Pleural Small pericardial effusion. There are no echocardiographic indications of cardiac tamponade. MMode/2D Measurements & Calculations LVIDd: 4.7 cm IVSd: 1.1 cm Ao root diam: 2.7 cm LVIDs: 3.6 cm LVPWd: 1.3 cm RVDd: 3.1 cm FS: 24.2 % LAV(MOD-sp4): 320.3 ml LVAd ap4: 32.2 cm2 SV(MOD-sp4): 67.9 ml LVLd ap4: 7.2 cm EDV(MOD-sp4): 117.9 ml EDV(sp4-el): 123.1 ml LVAs ap4: 19.4 cm2 LVLs ap4: 5.9 cm ESV(MOD-sp4): 49.9 ml ESV(sp4-el): 54.2 ml EF(MOD-sp4): 57.6 % EF(sp4-el): 56.0 % SV(sp4-el): 68.9 ml LA A4 area: 62.8 cm2 LA dimension(2D): 7.4 cm RA A4 area: 36.1 cm2 Doppler Measurements & Calculations Ao V2 max: 278.2 cm/sec AI max dara: 379.7 cm/sec LV V1 max: 120.6 cm/sec Ao max P.4 mmHg AI max P.7 mmHg LV V1 max P.9 mmHg Ao V2 mean: 177.0 cm/sec LV V1 mean P.0 mmHg Ao mean P.6 mmHg AI dec slope: 329.1 cm/sec2 LV V1 mean: 79.8 cm/sec Ao V2 VTI: 61.8 cm AI P1/2t: 337.9 msec LV V1 VTI: 26.0 cm PA V2 max: 148.9 cm/sec TR max dara: 317.1 cm/sec PA V2 mean: 95.0 cm/sec TR max P.2 mmHg ECHO/Echo Complete Interpretation Summary Mild segmental systolic dysfunction (see wall motion). The estimated ejection fraction is 45 %. The left atrium is severely enlarged. The right atrium is severely enlarged. Stable appearing mechanical mitral valve apparatus. Trivial transvalvular insufficiency of the mitral valve. An annuloplasty ring is noted in the tricuspid position. Moderate transvalvular insufficiency of the tricuspid valve. Mild diffuse aortic valve thickening. Mild focal aortic valve calcification. Trivial pulmonic valve insufficiency. Small pericardial effusion. There are no echocardiographic indications of cardiac tamponade. Right ventricular systolic pressure estimated to be 55 mmHg c/w pulmonary hyper tension. Unable to assess diastolic dysfunction. Ordering Physician: Genesis Casas Performed By: Noelle Pena RCS
[2021-11-28 06:10] LABS: Bedside Glucose 102 mg/dL (74-106)
[2021-11-28 06:12] LABS: Absolute Lymphocyte Count 0.82 X10^3/uL (0.83-4.51); Absolute Neutrophil Count 4.6 X10^3/uL (2.0-7.7); Basophil# 0.04 X10^3/uL; Basophil% 0.6 % (0-1); Eosinophil# 0.04 X10^3/uL; Eosinophils% 0.6 % (0-5); Hemoglobin 8.2 g/dL (12.0-15.0); Lymphocyte # 0.82 X10^3/ul (0.83-4.51); Mean Corp Hgb Conc 29.3 g/dL (32-36); Mean Corpuscular Hgb 24.2 pg (27.0-32.0); Mean Corpuscular Volume 82.6 fL (81-99); Mean Platelet Vol. 10.2 fl (6.2-12.0); Monocyte# 0.77 X10^3/uL; Monocyte% 12.2 % (0-10); NRBC Flagged by Analyzer 0 % (0-5); Neutrophil # 4.64 X10^3/uL (2.7-7.7); Neutrophil % 73.3 % (47-70); Platelet Count 370 K/mm3 (150-450); RBC Distribution Width CV 16.5 % (11.6-14.6); RBC Distribution Width SD 49.3 fl (35.1-43.9); Red Blood Count 3.39 M/mm3 (4.2-5.4); White Blood Count 6.3 K/mm3 (4.4-11.0)
[2021-11-28 06:24] LABS: International Normalized Ratio 2.4; Prothrombin Time (Protime)PT. 25.5 SECONDS (11.7-14.9)
[2021-11-28 07:10] LABS: ALB/GLOB Ratio 0.7 RATIO (0.9-2.4); AST(SGOT) 20 U/L (15-37); Alanine Aminotransfer ALT/SGPT 14 U/L (13-56); Albumin, Serum 1.8 g/dL (3.2-5.0); Alkaline Phosphatase 39 U/L (45-117); Anion Gap 6 (5-15); BUN 18 mg/dL (7-18); BUN/Creat Ratio 35.4 RATIO (10-20); Calcium,Total 7.6 mg/dL (8.5-10.1); Chloride 105 mmol/L (98-107); Cholesterol 132 mg/dL (200); Creatinine, Serum 0.51 mg/dL (0.55-1.02); EST Glomerular Filtration Rate 123 mL/min (>60); Est Glom Filt Rate - Afr Amer 148 mL/min (>60); Estimated Creatinine Clearance 30.62 ml/min; Globulin 2.5 g/dL (2.2-4.2); Glucose 97 mg/dL (74-106); High Density Lipoprotein 37 mg/dL; Potassium 3.4 mmol/L (3.5-5.1); Protein, Total 4.3 g/dL (6.4-8.2); Sodium Level 141 mmol/L (136-145); Thyroid Stim Hormone (TSH) 2.49 uIU/mL (0.358-3.74); Triglycerides 127 mg/dL; Very Low Density Lipoprotein 25 mg/dL (5-40)
[2021-11-28] MEDS: Potassium Chloride Oral Tablet 20 MEQ 40 MEQ PO (09:33)
[2021-11-28] MEDS: Furosemide 40 MG/4 ML Vial IV ×2 (09:34→17:50)
[2021-11-28] MEDS: Potassium Chloride Oral Tablet 10 MEQ PO (09:34)
[2021-11-28] MEDS: Lisinopril 2.5 MG Tablet PO (09:34)
--- NOTE | 2021-11-28 10:59 | PCM.PN.HOSP ---
Documented by User: MOLLY Dailey 11/28/21 11:13 Subjective Subjective Patient seen and examined. Patient lying in bed undergoing echocardiogram at this time. Objective Data Objective Data Vital Signs: Vital Signs Temp Pulse Resp BP Pulse Ox O2 Del Method O2 Flow Rate 97.9 F 67 18 121/61 H 99 Room Air 2 11/28/21 05:46 11/28/21 07:25 11/28/21 05:46 11/28/21 05:46 11/28/21 07:51 11/28/21 08:54 11/28/21 07:51 Oxygen Flow Rate (L/min) 2 Oxygen Delivery Method Room Air Weight: 134 lb 7.712 oz Body Mass Index (BMI) 26.2 Intake & Output: Intake and Output for Last 24 Hours 11/26/21 11/27/21 11/28/21 23:59 23:59 23:59 Intake Total 110 / 110 510 / 510 Output Total 300 / 300 700 / 700 Balance -190 / -190 -190 / -190 Lab / Micro Data Result Diagrams: 11/28/21 05:59 11/28/21 05:59 Labs: Laboratory Results - last 24 hr 11/27/21 17:20: WBC 7.3, RBC 3.07 L, Hgb 7.3 L, Hct 25.8 L, MCV 84.0, MCH 23.8 L, MCHC 28.3 L, RDW Std Deviation 53.8 H, RDW Coeff of Bharathi 17.5 H, Plt Count 446, MPV 10.3, Immature Gran % (Auto) 0.300, Neut % (Auto) 70.2 H, Lymph % (Auto) 16.5 L, [place] % (Auto) 11.6 H, Eos % (Auto) 1.0, Baso % (Auto) 0.4, Absolute Neuts (auto) 5.1, Absolute Lymphs (auto) 1.20, Nucleated RBC % 0.3 11/27/21 17:20: Sodium 139, Potassium 3.4 L, Chloride 104, Carbon Dioxide 30.0, Anion Gap 5, BUN 20 H, Creatinine 0.58, Estim Creat Clear Calc 33.71, Est GFR (MDRD) Af Amer 128, Est GFR (MDRD) Non-Af 105, BUN/Creatinine Ratio 34.5 H, Glucose 112 H, Calcium 8.0 L, Troponin I High Sens 22 11/27/21 17:20: B-Natriuretic Peptide 88.0 11/27/21 17:20: PT 26.3 H, INR 2.5 11/27/21 17:20: Magnesium 2.4, Total Bilirubin 0.30, Direct Bilirubin 0.06, AST 28, ALT 16, Alkaline Phosphatase 43 L, Total Protein 4.1 L, Albumin 2.0 L, Globulin 2.1 L 11/27/21 17:20: Iron 15 L, TIBC 349, Iron Saturation 4.3 L, Ferritin 4 L, Folate 7.30 11/27/21 20:30: Procalcitonin < 0.01 11/27/21 20:30: Blood Type A POSITIVE, Antibody Screen NEGATIVE, Crossmatch See Detail 11/27/21 20:30: Vitamin B12 229 11/27/21 20:38: COVID-19 (MELISSA) Not Detected 11/27/21 22:05: MRSA (PCR) Negative 11/27/21 22:37: Troponin I High Sens 24 11/27/21 23:00: POC Glucose 116 H 11/28/21 02:05: Hgb 8.1 L, Hct 27.0 L 11/28/21 02:05: Troponin I High Sens 25 11/28/21 05:49: POC Glucose 102 11/28/21 05:59: WBC 6.3, RBC 3.39 L, Hgb 8.2 L, Hct 28.0 L, MCV 82.6, MCH 24.2 L, MCHC 29.3 L, RDW Std Deviation 49.3 H, RDW Coeff of Bharathi 16.5 H, Plt Count 370, MPV 10.2, Immature Gran % (Auto) 0.300, Neut % (Auto) 73.3 H, Lymph % (Auto) 13.0 L, [place] % (Auto) 12.2 H, Eos % (Auto) 0.6, Baso % (Auto) 0.6, Absolute Neuts (auto) 4.6, Absolute Lymphs (auto) 0.82 L, Nucleated RBC % 0 11/28/21 05:59: PT 25.5 H, INR 2.4 11/28/21 05:59: Sodium 141, Potassium 3.4 L, Chloride 105, Carbon Dioxide 30.0, Anion Gap 6, BUN 18, Creatinine 0.51 L, Estim Creat Clear Calc 30.62, Est GFR (MDRD) Af Amer 148, Est GFR (MDRD) Non-Af 123, BUN/Creatinine Ratio 35.4 H, Glucose 97, Calcium 7.6 L, Total Bilirubin 0.90, AST 20, ALT 14, Alkaline Phosphatase 39 L, Total Protein 4.3 L, Albumin 1.8 L, Globulin 2.5, Albumin/Globulin Ratio 0.7 L, Triglycerides 127, Cholesterol 132, LDL Cholesterol 70, VLDL Cholesterol 25, HDL Cholesterol 37 L, TSH 2.49 11/28/21 05:59: Hemoglobin A1c 5.0 Micro: Microbiology 11/27/21 23:45 Urine, Clean Catch Legionella Antigen - Final 11/27/21 20:38 Mucosa - Nasopharyngeal Respiratory Panel (PCR) - Final 11/27/21 17:55 Nasal Secretion SARS-CoV-2 & FLU Antigen (Rapid) - Final Radiography Diagnostic Testing: Radiology Impression Chest X-Ray 11/27/21 18:00 IMPRESSION: Cardiomegaly bilateral effusions with bilateral lower lobe atelectasis or pneumonia. Electronically Signed: Reji Greer MD at 18:45 EDT , Physical Exam Const alert, oriented x3 and no apparent distress HEENT head/scalp atraumatic and moist oral mucous membranes Head and Scalp: normocephalic Eyes conjunctivae normal and no scleral icterus Neck no lymphadenopathy and supple Resp normal respiratory effort Effort and Inspection: able to speak in complete sentences and symmetric chest movement Auscultation: rales bilateral base and diminished lung sounds Cardio regular rate, S1 normal heart sound and S2 normal heart sound GI soft to palpation and non-tender Inspection: abdominal distention Auscultation: normoactive bowel sounds Extremity normal to inspection and full ROM General Extremity: edema bilateral lower extremity Details: moderate Neuro oriented x3, moves all extremities, no focal motor deficits and no sensory deficits noted Psych affect normal Assessment & Plan Assessment/Plan (1) Acute dyspnea: PLAN: Plan 1. Dyspnea secondary to acute on chronic anemia and CHF with pleural effusions -Patient received 1 unit packed red blood cells overnight -GI consulted -Hemoglobin 8.2 -Continue IV Lasix -Echocardiogram ordered -Troponin x3, -Continue lisinopril -Oxygen per protocol, currently on room air -Continue IV PPI -Micha wraps to bilateral lower extremities and encourage elevation when laying in bed 2. Cirrhosis, nonalcoholic -GI consulted -LFTs stable 3. Hypokalemia -Potassium 3.4 -Potassium chloride 40 mEq p.o. x1, potassium chloride 10 mEq p.o. daily -CMP daily 4. CAD -Warfarin continued upon admission -PT/INR daily -INR 2.4 5. Diabetes mellitus type 2 -ACH S blood sugars with sliding scale insulin ordered -Hemoglobin A1c 5.0 6. Hypertension -Continue lisinopril -Vital signs per protocol -As needed hydralazine IV 7. Paroxysmal atrial fibrillation -Coumadin continued at admission -Currently rate controlled DVT prophylaxis- SCDs This patient was seen by Dena Bradley NP-C under the supervision of Dr. Ford. 12 minutes spent in clinical coordination of patient's plan of care. Documented by User: Dr. Franklyn Ford MD 11/28/21 14:35 Subjective Subjective Patient seen and examined. Patient lying in bed undergoing echocardiogram at this time. Seen and examined. I talked to the patient and patient's son near the bedside and history taken from them. Patient has weakness and fatigue with leg swelling, decreased appetite at least for 1 to 2 months. For last 3 weeks patient getting more short of breath on exertion progressed to dyspnea at rest. Denies chest pain pressure or tightness. Patient was evaluated by [facility] about couple weeks ago and had ultrasound of abdomen which showed cirrhosis as per the patient. Objective Data Lab / Micro Data Result Diagrams: 11/28/21 05:59 11/28/21 05:59 Physical Exam Narrative Seen and examined. General: Alert, Oriented x3, Cooperative HEENT: Atraumatic, PERRLA, EOMI, Normocephalic Oral: No Gingival or Mucosal Lesions/ Ulcerations Neck: Supple, elevated JVD, Negative Carotid Bruits Lungs: Dyspnea at rest. Air entry diminished in bilateral lungs below sixth ICS. Bilateral pleural effusion. No crepitations/rhonchi. Cardiovascular: Sinus rhythm with PVCs. Normal S1, Normal S2, status post MVR, mechanical valve click, systolic murmur. Abdomen: Bowel Sounds Present, Soft, Non Tender, Non-Distended : No renal angle tenderness. No suprapubic tenderness. Extremities: Bilateral pitting lower extremity below thigh level., Capillary Refill Less than 3 Seconds Skin: No rashes, No breakdown Musculoskeletal: No Tenderness to Palpation of Joints or Extremities. ROM intact Neurological: Cranial nerves II-XII grossly intact, DTR 2+/4 Psych/Mental Status: Flat affect. Assessment & Plan Assessment/Plan (1) Acute dyspnea: PLAN: Plan 1. Dyspnea secondary to acute on chronic anemia and CHF with pleural effusions -Patient received 1 unit packed red blood cells overnight -GI consulted -Hemoglobin 8.2 -Continue IV Lasix -Echocardiogram ordered -Troponin x3, -Continue lisinopril -Oxygen per protocol, currently on room air -Continue IV PPI -Micha wraps to bilateral lower extremities and encourage elevation when laying in bed 2. Cirrhosis, nonalcoholic -GI consulted -LFTs stable 3. Hypokalemia -Potassium 3.4 -Potassium chloride 40 mEq p.o. x1, potassium chloride 10 mEq p.o. daily -CMP daily 4. CAD -Warfarin continued upon admission -PT/INR daily -INR 2.4 5. Diabetes mellitus type 2 -ACH S blood sugars with sliding scale insulin ordered -Hemoglobin A1c 5.0 6. Hypertension -Continue lisinopril -Vital signs per protocol -As needed hydralazine IV 7. Paroxysmal atrial fibrillation -Coumadin continued at admission -Currently rate controlled DVT prophylaxis- SCDs This patient was seen by MOLLY Dailey under the supervision of Dr. Ford. 15 minutes spent in clinical coordination of patient's plan of care. This patient was seen in conjunction with ALEJANDRO Fernandes. I have independently interviewed and examined the patient and reviewed pertinent history, examination findings, laboratory and plan of management. I have reviewed the note and agree with the documented findings with the few additional points. In brief, patient is 81-year-old female admitted for progressive worsening of shortness of breath to the point of dyspnea at rest, bilateral lower extremity edema, clinical and radiologic features of CHF exacerbation. I do not think patient has pneumonia as she does not have symptoms of fever or severe productive cough and chest x-ray favors heart failure exacerbation. 1. Acute on chronic systolic and diastolic combined heart failure, status post MVR, moderate TR consistent with valvular heart disease, paroxysmal A. fib: Patient on Lasix. Heart failure core measures including intake and output, fluid restriction less than 1500 mL, daily weight monitoring, kidney and electrolytes monitoring. 2D echo reported EF 45%, LA and RA severely enlarged, stable appearing mechanical mitral valve respirators. Angioplastic ring in tricuspid position. Moderate TR, trivial OR. Small pericardial effusion. RVSP 55 mmHg consistent with moderate pulmonary hypertension. Serial high-sensitivity troponin is normal. ACS ruled out. INR 2.5. We will try to maintain INR between 2-2.5 as patient is severely anemic. 2. Acute normocytic normochromic anemia, most likely iron deficiency anemia: Patient was also found very severely anemic, hemoglobin 7.3 and had 1 unit of PRBC transfusion. Previous last hemoglobin 14.1 g in our system in May 2019. As per son she does not follow usually physician. Serum iron low, iron saturation 4.3% ferritin 4. Folate normal. IV iron ordered. 3. Cirrhosis exact etiology unclear possible cardiac cirrhosis: Patient advised low-salt diet, fluid restriction along with diuretic treatment. Patient is not alcoholic and denies chronic viral hepatitis. Most probably patient has cardiac cirrhosis from MR TR and heart failure. Obtain ultrasound from [facility]. 4. Hypokalemia her potassium is getting monitored and replaced accordingly 5. Other multiple comorbidities include hypertension, dyslipidemia, history of CVA, coronary artery disease, medication reconciliation. Total time of the visit including total time spent in counseling or coordination of care, (more than 50% of the total time, spent in obtaining medical information from nurses and other ancillary care providers,explaining to the patient about labs, imaging, diagnosis and management of active complex medical conditions), natural history of cirrhosis, heart failure with patient and son and overall prognosis, review of labs and imaging is 45 minutes. I spent 30 minutes, Ladarius ALLEN spent 15 minutes Overall prognosis is not good. Patient's son wanted DNRCC arrest with no intubation I have discussed my assessment with Dena, RADIAL DRILL PRESS SET UP OPERATOR and orders have been reviewed. Microbiology Past 72 Hours 11/27/21 23:45 Urine, Clean Catch Legionella Antigen - Final 11/27/21 20:38 Mucosa - Nasopharyngeal Respiratory Panel (PCR) - Final 11/27/21 17:55 Nasal Secretion SARS-CoV-2 & FLU Antigen (Rapid) - Final Laboratory Results 11/27/21 17:20: WBC 7.3, RBC 3.07 L, Hgb 7.3 L, Hct 25.8 L, MCV 84.0, MCH 23.8 L, MCHC 28.3 L, RDW Std Deviation 53.8 H, RDW Coeff of Bharathi 17.5 H, Plt Count 446, MPV 10.3, Immature Gran % (Auto) 0.300, Neut % (Auto) 70.2 H, Lymph % (Auto) 16.5 L, [place] % (Auto) 11.6 H, Eos % (Auto) 1.0, Baso % (Auto) 0.4, Absolute Neuts (auto) 5.1, Absolute Lymphs (auto) 1.20, Nucleated RBC % 0.3 11/27/21 17:20: Sodium 139, Potassium 3.4 L, Chloride 104, Carbon Dioxide 30.0, Anion Gap 5, BUN 20 H, Creatinine 0.58, Estim Creat Clear Calc 33.71, Est GFR (MDRD) Af Amer 128, Est GFR (MDRD) Non-Af 105, BUN/Creatinine Ratio 34.5 H, Glucose 112 H, Calcium 8.0 L, Troponin I High Sens 22 11/27/21 17:20: B-Natriuretic Peptide 88.0 11/27/21 17:20: PT 26.3 H, INR 2.5 11/27/21 17:20: Magnesium 2.4, Total Bilirubin 0.30, Direct Bilirubin 0.06, AST 28, ALT 16, Alkaline Phosphatase 43 L, Total Protein 4.1 L, Albumin 2.0 L, Globulin 2.1 L 11/27/21 17:20: Iron 15 L, TIBC 349, Iron Saturation 4.3 L, Ferritin 4 L, Folate 7.30 11/27/21 20:30: Procalcitonin < 0.01 11/27/21 20:30: Blood Type A POSITIVE, Antibody Screen NEGATIVE, Crossmatch See Detail 08/23/22 20:30: Vitamin B12 229 11/27/21 20:38: COVID-19 (MELISSA) Not Detected 11/27/21 22:05: MRSA (PCR) Negative 11/27/21 22:37: Troponin I High Sens 24 11/27/21 23:00: POC Glucose 116 H 11/28/21 02:05: Hgb 8.1 L, Hct 27.0 L 11/28/21 02:05: Troponin I High Sens 25 11/28/21 05:49: POC Glucose 102 11/28/21 05:59: WBC 6.3, RBC 3.39 L, Hgb 8.2 L, Hct 28.0 L, MCV 82.6, MCH 24.2 L, MCHC 29.3 L, RDW Std Deviation 49.3 H, RDW Coeff of Bharathi 16.5 H, Plt Count 370, MPV 10.2, Immature Gran % (Auto) 0.300, Neut % (Auto) 73.3 H, Lymph % (Auto) 13.0 L, [place] % (Auto) 12.2 H, Eos % (Auto) 0.6, Baso % (Auto) 0.6, Absolute Neuts (auto) 4.6, Absolute Lymphs (auto) 0.82 L, Nucleated RBC % 0 11/28/21 05:59: PT 25.5 H, INR 2.4 11/28/21 05:59: Sodium 141, Potassium 3.4 L, Chloride 105, Carbon Dioxide 30.0, Anion Gap 6, BUN 18, Creatinine 0.51 L, Estim Creat Clear Calc 30.62, Est GFR (MDRD) Af Amer 148, Est GFR (MDRD) Non-Af 123, BUN/Creatinine Ratio 35.4 H, Glucose 97, Calcium 7.6 L, Total Bilirubin 0.90, AST 20, ALT 14, Alkaline Phosphatase 39 L, Total Protein 4.3 L, Albumin 1.8 L, Globulin 2.5, Albumin/Globulin Ratio 0.7 L, Triglycerides 127, Cholesterol 132, LDL Cholesterol 70, VLDL Cholesterol 25, HDL Cholesterol 37 L, TSH 2.49 11/28/21 05:59: Hemoglobin A1c 5.0 11/28/21 11:21: POC Glucose 110 H Clinical Impression(s) from Imaging Studies Chest X-Ray 11/27/21 18:00 IMPRESSION: Cardiomegaly bilateral effusions with bilateral lower lobe atelectasis or pneumonia. Echocardiogram 11/28/21 05:55 Interpretation Summary Mild segmental systolic dysfunction (see wall motion). The estimated ejection fraction is 45 %. The left atrium is severely enlarged. The right atrium is severely enlarged. Stable appearing mechanical mitral valve apparatus. Trivial transvalvular insufficiency of the mitral valve. An annuloplasty ring is noted in the tricuspid position. Moderate transvalvular insufficiency of the tricuspid valve. Mild diffuse aortic valve thickening. Mild focal aortic valve calcification. Trivial pulmonic valve insufficiency. Small pericardial effusion. There are no echocardiographic indications of cardiac tamponade. Right ventricular systolic pressure estimated to be 55 mmHg c/w pulmonary hypertension. Unable to assess diastolic dysfunction. Ordering Physician: Genesis Casas Performed By: Noelle Pena RCS Charges/Coding Visit Charges Inpatient E&M: 45357 Subs Hosp L3
--- NOTE | 2021-11-28 11:30 | CASEMGMT ---
RN CM Face to Face with patient for initial transition planning/care coordination assessment. RN CM introduced self and role at [facility]. Patient lying in bed, alert and oriented, son at bedside. Patient and son willing to participate in assessment and is able to answer all questions appropriately. Care providers, pharmacy, and demographics verified. Patient wishes to discharge to a SNF as she feels she is not able to go home. A list of SNF providers including quality and resource use data and consistent with the patient?s preferred geographic region, medical needs, and insurance network were provided via the CarePort Guide. Patient and son to review list and provide preferences. Patient and son states they have no further needs or concerns at this time. CM to follow for discharge planning needs that may arise. PCP: Kelly Specialists: Hunter staff engineer [facility] Pres[facility] Benef[facility]: yes Living Will/HPOA: none LNOK: , son Living Arrangements: Patient lives with and son in a single story home with 3 steps and railing to enter the home. Patient is independent at home for dressing and toileting, requires assistance with bathing. Transportation: son DME/HHC: Patient has shower chair, grab bars, walker, and wheelchair at home. Patient has previously been to [facility], no previous HHC. Disposition Plan: TBD, anticipate SNF for additional therapy prior to going home. Swathi VALLEJO, RN, CM
[2021-11-28 11:40] LABS: Bedside Glucose 110 mg/dL (74-106)
--- NOTE | 2021-11-28 13:37 | CASEMGMT ---
SW spoke with patient and her son. MILENA introduced self and role at [facility]. SW asked if they had a chance to review the list of nursing homes. Patient's son said their first choice would be [facility]. SW let them know SW will work on a referral. MILENA asked Janie d/c vp ad products and planning to please make referral. Melyssa Levi SENIOR COGNOS DEVELOPER MENDOZA
--- NOTE | 2021-11-28 13:51 | CASEMGMT ---
Addendum entered by Janie Gutierrez 11/28/21 14:46: [facility] patient because [facility] not in network with insurance. Janie morley/kallie assistant finance manager got a second choice from son and he picked [facility]. Janie called [facility] at [facility] and Nelly can accept patient. MILENA Ragsdale notified. Plan: [facility] Discharge Supervisor International Reservations Original Note: Discharge Supervisor International Reservations Janie morley/kallie assistant finance manager sent referral via [facility] Port to [facility]. Will follow up. Plan: [facility], Waiting Acceptance Janie Gutierrez Discharge Supervisor International Reservations
--- NOTE | 2021-11-28 17:12 | CON.PCM_ITS ---
Assessment & Plan Assessment/Plan (1) Anemia: PLAN: The differential diagnosis for acute anemia in the setting of cirrhosis is variceal bleed of the esophagus, stomach, duodenum. Also given diagnosis would be portal gastropathy or gastritis versus peptic ulcer disease or neoplasia. Being that the patient is on anticoagulation and with worsening anemia she should undergo an endoscopic procedure to evaluate her upper GI tract. If she can tolerate a prep it would be good to do both but I do not know if she can tolerate a prep at this time. I will schedule her for upper endoscopy. She was explained alternatives, risk, benefits include not withstanding bleeding, infection, sepsis, perforation, need for emergent . Have an ASA of 3. HPI Consult Data Date of Consult: 11/28/21 HPI Narrative Reason for Consultation: Anemia HPI Narrative: SHRUTHI JOHNSON, is a 81 F who presents to the ED with worsening shortness of breath. She has a past medical history of CAD status post PTCA with stents, CVA, hypertension, hyperlipidemia, type 2 diabetes, cirrhosis possibly secondary to nonalcoholic fatty liver disease diagnosed multiple years ago. Initially she presented to the ED with mild respiratory discomfort. Her oxygen saturation was 95% on room air. During her work-up she was discovered to be hypertensive without tachycardia and afebrile. Her biochemical analysis that showed a white blood cell count of 7.3 hemoglobin is 7.3, MCV 84, platelet count of 446 and mildly elevated BUN/creatinine ratio 20/0.58. Chest x-ray showed cardiomegaly bilateral pleural effusions with bilateral lower lobe atelectasis. EKG showed atrial fibrillation without acute ST segment changes. Blood cultures were drawn and they are subsequently negative thus far. I was consulted due to her worsening anemia. Her baseline blood count usually runs around 14 and has been slowly decreasing. All other 16 review systems are negative except as per body mentioned HPI PFSH Medical History Anxiety and depression Atherosclerotic heart disease of [place] coronary artery without angina pectoris Atrial fibrillation Chronic systolic congestive heart failure Cirrhosis Diabetes mellitus GERD (gastroesophageal reflux disease) History of CVA (cerebrovascular accident) Hyperlipidemia Hypertension detention (current) use of anticoagulants Pulmonary hypertension Home Medications nitroglycerin 0.4 mg sublingual tablet 0.4 mg sublingual Q5M PRN Chest Pain #25 tabs 08/01/17 [Rx Last Taken Unknown] acetaminophen 500 mg tablet 500 mg PO Q6H PRN PRN Mild Pain (1-3) 10/21/17 [Rx Last Taken Unknown] furosemide 40 mg tablet (Lasix) 20 mg PO DAILY 02/05/19 [History Last Taken 11/27/21] lisinopril 2.5 mg tablet 2.5 mg PO DAILY blood pressure 02/05/19 [History Last Taken 11/27/21] potassium 99 mg tablet 99 mg PO DAILY 11/27/21 [History Last Taken 11/27/21] warfarin 2 mg tablet 2 mg PO SUWE 11/27/21 [History Last Taken 11/25/21] warfarin 3 mg tablet 3 mg PO MOTUTHFRSA 11/27/21 [History Last Taken 11/26/21] Allergy/AdvReac Type Severity Reaction Status Date / Time cortisone Allergy Unknown Verified 11/27/21 17:17 Family History Father CAD (coronary artery disease) Sudden cardiac , Onset Age: 68 Family History other Surgical History H/O mitral valve replacement with mechanical valve History of angioplasty Hx of appendectomy Social History (Updated 11/27/21 @ 20:[address] Genesis Casas MD) household members: other details: Lives with her son. Smoking Status: Never smoker alcohol intake: never substance use type: does not use caffeine: Yes Type: coffee ROS ROS Narrative Admission Review of Systems: CONSTITUTIONAL: No weight loss, fever, chills, + weakness or fatigue. HEENT: Eyes: No visual loss, blurred vision, double vision or yellow sclerae. Ears, Nose, Throat: No hearing loss, sneezing, congestion, runny nose or sore throat. SKIN: No rash or itching, lesions, wounds. CARDIOVASCULAR: + Edema, ? orthopnea. No chest pain, chest pressure or chest discomfort, palpitations, syncopal events. RESPIRATORY: + shortness of breath, cough without marked sputum, No wheezing, hemoptysis. GASTROINTESTINAL: + anorexia, No nausea, vomiting or diarrhea, abdominal pain, melena, BRBPR. GENITOURINARY: No dysuria, frequency, urgency or retention. NEUROLOGICAL: No headache, dizziness, syncope, paralysis, ataxia, numbness or tingling in the extremities, focal weakness, change in bowel or bladder control, seizure. MUSCULOSKELETAL: + muscle, back pain, joint pain or stiffness. HEMATOLOGIC: + anemia, bleeding or bruising. LYMPHATICS: No enlarged nodes. No history of splenectomy. PSYCHIATRIC: + history of depression or anxiety. ENDOCRINOLOGIC: No reports of sweating, cold or heat intolerance. No polyuria or polydipsia. ALLERGIES: No history of asthma, hives, eczema or rhinitis. Physical Exam Narrative Seen and examined. General: Alert, Oriented x3, Cooperative HEENT: Atraumatic, PERRLA, EOMI, Normocephalic Oral: No Gingival or Mucosal Lesions/ Ulcerations Neck: Supple, elevated JVD, Negative Carotid Bruits Lungs: Dyspnea at rest. Air entry diminished in bilateral lungs below sixth ICS. Bilateral pleural effusion. No crepitations/rhonchi. Cardiovascular: Sinus rhythm with PVCs. Normal S1, Normal S2, status post MVR, mechanical valve click, systolic murmur. Abdomen: Bowel Sounds Present, Soft, Non Tender, Non-Distended : No renal angle tenderness. No suprapubic tenderness. Extremities: Bilateral pitting lower extremity below thigh level., Capillary Refill Less than 3 Seconds Skin: No rashes, No breakdown Musculoskeletal: No Tenderness to Palpation of Joints or Extremities. ROM intact Neurological: Cranial nerves II-XII grossly intact, DTR 2+/4 Psych/Mental Status: Flat affect. Const alert, oriented x3 and no apparent distress HEENT head/scalp atraumatic and moist oral mucous membranes Head and Scalp: normocephalic Eyes conjunctivae normal and no scleral icterus Neck no lymphadenopathy and supple Resp normal respiratory effort Effort and Inspection: able to speak in complete sentences and symmetric chest movement Auscultation: rales bilateral base and diminished lung sounds Cardio regular rate, S1 normal heart sound and S2 normal heart sound GI soft to palpation and non-tender Inspection: abdominal distention Auscultation: normoactive bowel sounds Extremity normal to inspection and full ROM General Extremity: edema bilateral lower extremity Details: moderate Neuro oriented x3, moves all extremities, no focal motor deficits and no sensory deficits noted Psych affect normal Lab / Micro Data Result Diagrams: 11/28/21 05:59 11/28/21 05:59 Labs: Laboratory Results - last 24 hr 11/27/21 17:20: WBC 7.3, RBC 3.07 L, Hgb 7.3 L, Hct 25.8 L, MCV 84.0, MCH 23.8 L , MCHC 28.3 L, RDW Std Deviation 53.8 H, RDW Coeff of Bharathi 17.5 H, Plt Count 446, MPV 10.3, Immature Gran % (Auto) 0.300, Neut % (Auto) 70.2 H, Lymph % (Auto) 16.5 L, [place] % (Auto) 11.6 H, Eos % (Auto) 1.0, Baso % (Auto) 0.4, Absolute Neuts (auto) 5.1, Absolute Lymphs (auto) 1.20, Nucleated RBC % 0.3 11/27/21 17:20: Sodium 139, Potassium 3.4 L, Chloride 104, Carbon Dioxide 30.0, Anion Gap 5, BUN 20 H, Creatinine 0.58, Estim Creat Clear Calc 33.71, Est GFR (MDRD) Af Amer 128, Est GFR (MDRD) Non-Af 105, BUN/Creatinine Ratio 34.5 H, Glucose 112 H, Calcium 8.0 L, Troponin I High Sens 22 11/27/21 17:20: B-Natriuretic Peptide 88.0 11/27/21 17:20: PT 26.3 H, INR 2.5 11/27/21 17:20: Magnesium 2.4, Total Bilirubin 0.30, Direct Bilirubin 0.06, AST 28, ALT 16, Alkaline Phosphatase 43 L, Total Protein 4.1 L, Albumin 2.0 L, G lobulin 2.1 L 11/27/21 17:20: Iron 15 L, TIBC 349, Iron Saturation 4.3 L, Ferritin 4 L, Folate 7.30 11/27/21 20:30: Procalcitonin < 0.01 11/27/21 20:30: Blood Type A POSITIVE, Antibody Screen NEGATIVE, Crossmatch See Detail 11/27/21 20:30: Vitamin B12 229 11/27/21 20:38: COVID-19 (MELISSA) Not Detected 11/27/21 22:05: MRSA (PCR) Negative 11/27/21 22:37: Troponin I High Sens 24 11/27/21 23:00: POC Glucose 116 H 11/28/21 02:05: Hgb 8.1 L, Hct 27.0 L 11/28/21 02:05: Troponin I High Sens 25 11/28/21 05:49: POC Glucose 102 11/28/21 05:59: WBC 6.3, RBC 3.39 L, Hgb 8.2 L, Hct 28.0 L, MCV 82.6, MCH 24.2 L , MCHC 29.3 L, RDW Std Deviation 49.3 H, RDW Coeff of Bharathi 16.5 H, Plt Count 370, MPV 10.2, Immature Gran % (Auto) 0.300, Neut % (Auto) 73.3 H, Lymph % (Auto) 13.0 L, [place] % (Auto) 12.2 H, Eos % (Auto) 0.6, Baso % (Auto) 0.6, Absolute Neuts (auto) 4.6, Absolute Lymphs (auto) 0.82 L, Nucleated RBC % 0 11/28/21 05:59: PT 25.5 H, INR 2.4 11/28/21 05:59: Sodium 141, Potassium 3.4 L, Chloride 105, Carbon Dioxide 30.0, Anion Gap 6, BUN 18, Creatinine 0.51 L, Estim Creat Clear Calc 30.62, Est GFR (MDRD) Af Amer 148, Est GFR (MDRD) Non-Af 123, BUN/Creatinine Ratio 35.4 H, Glucose 97, Calcium 7.6 L, Total Bilirubin 0.90, AST 20, ALT 14, Alkaline Phosp hatase 39 L, Total Protein 4.3 L, Albumin 1.8 L, Globulin 2.5, Albumin/Globulin Ratio 0.7 L, Triglycerides 127, Cholesterol 132, LDL Cholesterol 70, VLDL Cholesterol 25, HDL Cholesterol 37 L, TSH 2.49 11/28/21 05:59: Hemoglobin A1c 5.0 11/28/21 11:21: POC Glucose 110 H Micro: Microbiology 11/27/21 23:45 Urine, Clean Catch Legionella Antigen - Final 11/27/21 20:38 Mucosa - Nasopharyngeal Respiratory Panel (PCR) - Final 11/27/21 17:55 Nasal Secretion SARS-CoV-2 & FLU Antigen (Rapid) - Final Radiology Impression Chest X-Ray 11/27/21 18:00 IMPRESSION: Cardiomegaly bilateral effusions with bilateral lower lobe atelectasis or pneumonia. Electronically Signed: Reji Greer MD at 18:45 EDT , Echocardiogram 11/28/21 05:55 Interpretation Summary Mild segmental systolic dysfunction (see wall motion). The estimated ejection fraction is 45 %. The left atrium is severely enlarged. The right atrium is severely enlarged. Stable appearing mechanical mitral valve apparatus. Trivial transvalvular insufficiency of the mitral valve. An annuloplasty ring is noted in the tricuspid position. Moderate transvalvular insufficiency of the tricuspid valve. Mild diffuse aortic valve thickening. Mild focal aortic valve calcification. Trivial pulmonic valve insufficiency. Small pericardial effusion. There are no echocardiographic indications of cardiac tamponade. Right ventricular systolic pressure estimated to be 55 mmHg c/w pulmonary hypertension. Unable to assess diastolic dysfunction. Ordering Physician: Genesis Casas Performed By: Noelle Pena RCS Charges/Coding Visit Charges Inpatient E&M: 67473 Init Hosp L2
[2021-11-28] MEDS: Jantoven 2 MG Tablet PO (17:49)
[2021-11-28] MEDS: 0.9% Saline Lock 10 ML Syringe IV (17:50)
[2021-11-28 18:20] LABS: Bedside Glucose 98 mg/dL (74-106)
[2021-11-28] MEDS: Atorvastatin Calcium 10 MG Tablet PO (23:00)
[2021-11-28 23:31] LABS: Bedside Glucose 92 mg/dL (74-106)
[2021-11-28 23:55] LABS: Absolute Lymphocyte Count 0.74 X10^3/uL (0.83-4.51); Absolute Neutrophil Count 3.6 X10^3/uL (2.0-7.7); Basophil# 0.03 X10^3/uL; Basophil% 0.6 % (0-1); Eosinophil# 0.06 X10^3/uL; Eosinophils% 1.2 % (0-5); Hematocrit 31.4 % (37-47); Hemoglobin 9.3 g/dL (12.0-15.0); Lymphocyte # 0.74 X10^3/ul (0.83-4.51); Lymphocyte % 14.7 % (19-41); Mean Corp Hgb Conc 29.6 g/dL (32-36); Mean Corpuscular Hgb 25.1 pg (27.0-32.0); Mean Corpuscular Volume 84.9 fL (81-99); Mean Platelet Vol. 10.3 fl (6.2-12.0); Monocyte% 11.9 % (0-10); NRBC Flagged by Analyzer 0 % (0-5); Neutrophil % 71.4 % (47-70); Platelet Count 342 K/mm3 (150-450); RBC Distribution Width CV 16.7 % (11.6-14.6)
[2021-11-29] VITALS (13 sets, daily range): BP systolic 78–122; BP diastolic 49–68; PULSE 51–80; RESP 16–24; TEMP 36.4–36.8; O2SAT 92–100
[2021-11-29 00:11] LABS: Anion Gap 4 (5-15); BUN 18 mg/dL (7-18); Calcium,Total 7.6 mg/dL (8.5-10.1); Chloride 107 mmol/L (98-107); Creatinine, Serum 0.53 mg/dL (0.55-1.02); EST Glomerular Filtration Rate 117 mL/min (>60); Est Glom Filt Rate - Afr Amer 142 mL/min (>60); Estimated Creatinine Clearance 30.62 ml/min; Glucose 90 mg/dL (74-106); Potassium 3.8 mmol/L (3.5-5.1); Sodium Level 143 mmol/L (136-145)
[2021-11-29] MEDS: Furosemide 40 MG/4 ML Vial IV (00:35)
[2021-11-29 06:55] LABS: Bedside Glucose 76 mg/dL (74-106)
[2021-11-29 06:56] LABS: Absolute Lymphocyte Count 0.82 X10^3/uL (0.83-4.51); Absolute Neutrophil Count 3.3 X10^3/uL (2.0-7.7); Basophil# 0.05 X10^3/uL; Eosinophil# 0.08 X10^3/uL; Eosinophils% 1.6 % (0-5); Hematocrit 30.2 % (37-47); Hemoglobin 9.2 g/dL (12.0-15.0); Lymphocyte # 0.82 X10^3/ul (0.83-4.51); Lymphocyte % 16.7 % (19-41); Mean Corp Hgb Conc 30.5 g/dL (32-36); Mean Corpuscular Hgb 25.6 pg (27.0-32.0); Mean Corpuscular Volume 83.9 fL (81-99); Mean Platelet Vol. 10.2 fl (6.2-12.0); Monocyte# 0.63 X10^3/uL; Monocyte% 12.8 % (0-10); NRBC Flagged by Analyzer 0 % (0-5); Neutrophil # 3.32 X10^3/uL (2.7-7.7); Neutrophil % 67.7 % (47-70); Platelet Count 328 K/mm3 (150-450); RBC Distribution Width CV 16.4 % (11.6-14.6); RBC Distribution Width SD 49.7 fl (35.1-43.9); White Blood Count 4.9 K/mm3 (4.4-11.0)
[2021-11-29 07:28] LABS: ALB/GLOB Ratio 0.8 RATIO (0.9-2.4); AST(SGOT) 19 U/L (15-37); Alanine Aminotransfer ALT/SGPT 13 U/L (13-56); Albumin, Serum 1.8 g/dL (3.2-5.0); Alkaline Phosphatase 39 U/L (45-117); Anion Gap 5 (5-15); BUN 17 mg/dL (7-18); BUN/Creat Ratio 32.8 RATIO (10-20); Calcium,Total 7.8 mg/dL (8.5-10.1); Chloride 106 mmol/L (98-107); Creatinine, Serum 0.52 mg/dL (0.55-1.02); EST Glomerular Filtration Rate 120 mL/min (>60); Est Glom Filt Rate - Afr Amer 145 mL/min (>60); Estimated Creatinine Clearance 30.62 ml/min; Globulin 2.4 g/dL (2.2-4.2); Glucose 75 mg/dL (74-106); Potassium 3.6 mmol/L (3.5-5.1); Protein, Total 4.2 g/dL (6.4-8.2); Sodium Level 143 mmol/L (136-145)
[2021-11-29] MEDS: Potassium Chloride Oral Tablet 10 MEQ PO (09:23)
--- NOTE | 2021-11-29 13:19 | PCM.PN.HOSP ---
Documented by User: Ekta Toure NP, SULFUR CHLORIDE OPERATOR-C 11/29/21 13:40 Subjective Subjective Patient seen and examined. Denies shortness of breath. Denies blood in stool or black stool. Denies chest pain. Denies lightheadedness, dizziness. Objective Data Objective Data Vital Signs: Vital Signs Temp Pulse Resp BP Pulse Ox O2 Del Method O2 Flow Rate 97.5 F L 73 16 118/49 L 92 Room Air 2 11/29/21 09:12 11/29/21 09:12 11/29/21 09:12 11/29/21 11:50 11/29/21 09:12 11/29/21 09:40 11/29/21 07:22 Oxygen Flow Rate (L/min) 2 Oxygen Delivery Method Room Air Weight: 133 lb 13.129 oz Body Mass Index (BMI) 26.2 Intake & Output: Intake and Output for Last 24 Hours 11/27/21 11/28/21 11/29/21 23:59 23:59 23:59 Intake Total 110 / 110 1020 / 1120 290 / 290 Output Total 300 / 300 900 / 1350 1250 / 1250 Balance -190 / -190 120 / -230 -960 / -960 Lab / Micro Data Result Diagrams: 11/29/21 05:54 11/29/21 05:54 Labs: Laboratory Results - last 24 hr 11/27/21 20:30: Crossmatch See Detail 11/27/21 20:30: Crossmatch See Detail 11/28/21 17:52: POC Glucose 98 11/28/21 23:04: POC Glucose 92 11/28/21 23:50: WBC 5.0, RBC 3.70 L, Hgb 9.3 L, Hct 31.4 L, MCV 84.9, MCH 25.1 L, MCHC 29.6 L, RDW Std Deviation 51.0 H, RDW Coeff of Bharathi 16.7 H, Plt Count 342, MPV 10.3, Immature Gran % (Auto) 0.200, Neut % (Auto) 71.4 H, Lymph % (Auto) 14.7 L, Hill % (Auto) 11.9 H, Eos % (Auto) 1.2, Baso % (Auto) 0.6, Absolute Neuts (auto) 3.6, Absolute Lymphs (auto) 0.74 L, Nucleated RBC % 0 08/24/22 23:50: Sodium 143, Potassium 3.8, Chloride 107, Carbon Dioxide 32.0, Anion Gap 4 L, BUN 18, Creatinine 0.53 L, Estim Creat Clear Calc 30.62, Est GFR (MDRD) Af Amer 142, Est GFR (MDRD) Non-Af 117, BUN/Creatinine Ratio 34.0 H, Glucose 90, Calcium 7.6 L 11/29/21 05:54: WBC 4.9, RBC 3.60 L, Hgb 9.2 L, Hct 30.2 L, MCV 83.9, MCH 25.6 L, MCHC 30.5 L, RDW Std Deviation 49.7 H, RDW Coeff of Bharathi 16.4 H, Plt Count 328, MPV 10.2, Immature Gran % (Auto) 0.200, Neut % (Auto) 67.7, Lymph % (Auto) 16.7 L, Hill % (Auto) 12.8 H, Eos % (Auto) 1.6, Baso % (Auto) 1.0, Absolute Neuts (auto) 3.3, Absolute Lymphs (auto) 0.82 L, Nucleated RBC % 0 11/29/21 05:54: Sodium 143, Potassium 3.6, Chloride 106, Carbon Dioxide 32.0, Anion Gap 5, BUN 17, Creatinine 0.52 L, Estim Creat Clear Calc 30.62, Est GFR (MDRD) Af Amer 145, Est GFR (MDRD) Non-Af 120, BUN/Creatinine Ratio 32.8 H, Glucose 75, Calcium 7.8 L, Total Bilirubin 0.50, AST 19, ALT 13, Alkaline Phosphatase 39 L, Total Protein 4.2 L, Albumin 1.8 L, Globulin 2.4, Albumin/Globulin Ratio 0.8 L 11/29/21 06:37: POC Glucose 76 Micro: Microbiology 11/29/21 09:30 Urine, Clean Catch Streptococcus pneumoniae Antigen (M - Final Streptococcus pneumonia Ag 11/27/21 23:45 Urine, Clean Catch Legionella Antigen - Final 11/27/21 20:38 Mucosa - Nasopharyngeal Respiratory Panel (PCR) - Final 11/27/21 17:55 Nasal Secretion SARS-CoV-2 & FLU Antigen (Rapid) - Final Radiography Diagnostic Testing: Radiology Impression Echocardiogram 11/28/21 05:55 Interpretation Summary Mild segmental systolic dysfunction (see wall motion). The estimated ejection fraction is 45 %. The left atrium is severely enlarged. The right atrium is severely enlarged. Stable appearing mechanical mitral valve apparatus. Trivial transvalvular insufficiency of the mitral valve. An annuloplasty ring is noted in the tricuspid position. Moderate transvalvular insufficiency of the tricuspid valve. Mild diffuse aortic valve thickening. Mild focal aortic valve calcification. Trivial pulmonic valve insufficiency. Small pericardial effusion. There are no echocardiographic indications of cardiac tamponade. Right ventricular systolic pressure estimated to be 55 mmHg c/w pulmonary hypertension. Unable to assess diastolic dysfunction. Ordering Physician: Genesis Casas Performed By: Noelle Pena RCS Physical Exam Const alert and oriented x3 Nutritional Appearance: cachectic HEENT normocephalic Mouth: dry mucous membranes Eyes PERRL, EOMs intact bilaterally and conjunctivae normal Neck no lymphadenopathy Resp normal respiratory effort and clear to auscultation bilaterally Cardio regular rate, regular rhythm and no murmurs Cardio Narrative: Junctional rhythm Peripheral Pulses: pulses 2+ throughout GI normal to inspection, nondistended, normoactive bowel sounds, non-tender and non-distended Extremity normal to inspection Skin no rashes or lesions noted Lesions: no lesions Rashes: no rashes Trauma: no lacerations or abrasions Neuro CN's II-XII intact bilaterally, no focal motor deficits, no sensory deficits noted and deep tendon reflexes 2+ bilaterally Psych mental status grossly normal and affect normal Assessment & Plan Assessment/Plan (1) Anemia: (2) Acute on chronic systolic heart failure: PLAN: Plan 1. Acute normocytic anemia-GI consulted. IV PPI. Trend H&H. Plan for upper scope. Patient on anticoagulation for mechanical valve. 2. Streptococcal pneumonia-chest x-ray with bilateral lower lobe pneumonia. Urine with strep pneumo. Blood cultures pending. IV Rocephin. Albuterol and DuoNeb aerosols. 3. Chronic combined systolic and diastolic heart failure-chest x-ray with bilateral lower lobe pneumonia. BNP normal. Echo with EF 45%. Continue home Lasix regimen. Patient received initial dose of IV Lasix due to suspected fluid overload. 4. Cirrhosis-nonalcoholic. Unclear etiology. GI consulted. Continue Lasix. 5. Valvular heart disease-history of mitral valve repair with mechanical valves and TV repair. On Coumadin. Echocardiogram demonstrates an EF of 45%, stable appearing mechanical mitral valve, annuloplasty ring in the tricuspid position, RVSP estimated to be 55 mmHg. 6. History of CVA-continue Coumadin. Not on aspirin, statin. 7. Paroxysmal atrial fibrillation-continue Coumadin. 8. CAD-not on beta-lili. Not on aspirin. Defer to outpatient. 9. Hypertension-stable, continue home regimen including lisinopril. 10. Hyperlipidemia-not on statin. DVT prophylaxis-Coumadin This patient was seen by MOLLY Gardiner under the supervision of Dr. Ford. Time spent examining patient, reviewing data and subsequent management of care: 18 minutes Documented by User: Dr. Franklyn Ford MD 11/29/21 16:37 Subjective Subjective Patient seen and examined. Denies shortness of breath. Denies blood in stool or black stool. Denies chest pain. Denies lightheadedness, dizziness. Seen and examined. Patient is comfortable in regards to breathing. She is not dyspneic at rest. Her swelling has also improved on diuretic. Denies active GI bleed including hematemesis melena or hematochezia. No abdominal pain. Objective Data Lab / Micro Data Result Diagrams: 11/29/21 05:54 11/29/21 05:54 Labs: Laboratory Results - last 24 hr 11/27/21 20:30: Crossmatch See Detail 11/27/21 20:30: Crossmatch See Detail 11/28/21 17:52: POC Glucose 98 11/28/21 23:04: POC Glucose 92 11/28/21 23:50: WBC 5.0, RBC 3.70 L, Hgb 9.3 L, Hct 31.4 L, MCV 84.9, MCH 25.1 L, MCHC 29.6 L, RDW Std Deviation 51.0 H, RDW Coeff of Bharathi 16.7 H, Plt Count 342, MPV 10.3, Immature Gran % (Auto) 0.200, Neut % (Auto) 71.4 H, Lymph % (Auto) 14.7 L, Hill % (Auto) 11.9 H, Eos % (Auto) 1.2, Baso % (Auto) 0.6, Absolute Neuts (auto) 3.6, Absolute Lymphs (auto) 0.74 L, Nucleated RBC % 0 11/28/21 23:50: Sodium 143, Potassium 3.8, Chloride 107, Carbon Dioxide 32.0, Anion Gap 4 L, BUN 18, Creatinine 0.53 L, Estim Creat Clear Calc 30.62, Est GFR (MDRD) Af Amer 142, Est GFR (MDRD) Non-Af 117, BUN/Creatinine Ratio 34.0 H, Glucose 90, Calcium 7.6 L 11/29/21 05:54: WBC 4.9, RBC 3.60 L, Hgb 9.2 L, Hct 30.2 L, MCV 83.9, MCH 25.6 L, MCHC 30.5 L, RDW Std Deviation 49.7 H, RDW Coeff of Bharathi 16.4 H, Plt Count 328, MPV 10.2, Immature Gran % (Auto) 0.200, Neut % (Auto) 67.7, Lymph % (Auto) 16.7 L, Hill % (Auto) 12.8 H, Eos % (Auto) 1.6, Baso % (Auto) 1.0, Absolute Neuts (auto) 3.3, Absolute Lymphs (auto) 0.82 L, Nucleated RBC % 0 11/29/21 05:54: Sodium 143, Potassium 3.6, Chloride 106, Carbon Dioxide 32.0, Anion Gap 5, BUN 17, Creatinine 0.52 L, Estim Creat Clear Calc 30.62, Est GFR (MDRD) Af Amer 145, Est GFR (MDRD) Non-Af 120, BUN/Creatinine Ratio 32.8 H, Glucose 75, Calcium 7.8 L, Total Bilirubin 0.50, AST 19, ALT 13, Alkaline Phosphatase 39 L, Total Protein 4.2 L, Albumin 1.8 L, Globulin 2.4, Albumin/Globulin Ratio 0.8 L 11/29/21 06:37: POC Glucose 76 Physical Exam Narrative Seen and examined. General: Alert, Oriented x3, Cooperative HEENT: Atraumatic, PERRLA, EOMI, Normocephalic Oral: No Gingival or Mucosal Lesions/ Ulcerations Neck: Supple, elevated JVD, Negative Carotid Bruits Lungs: No tachypnea or hypoxia. Air entry diminished in bilateral lungs below sixth ICS. Bilateral pleural effusion. No crepitations/rhonchi. Cardiovascular: Sinus rhythm with PVCs. Normal S1, Normal S2, status post MVR, mechanical valve click, systolic murmur. Abdomen: Bowel Sounds Present, Soft, Non Tender, Non-Distended : No renal angle tenderness. No suprapubic tenderness. Extremities: Bilateral pitting lower extremity below knee level., Capillary Refill Less than 3 Seconds Skin: No rashes, No breakdown Musculoskeletal: No Tenderness to Palpation of Joints or Extremities. ROM intact Neurological: Cranial nerves II-XII grossly intact, DTR 2+/4 Psych/Mental Status: Flat affect. Assessment & Plan Assessment/Plan (1) Anemia: (2) Acute on chronic systolic heart failure: PLAN: Plan 1. Acute normocytic anemia-GI consulted. IV PPI. Trend H&H. Plan for upper scope. Patient on anticoagulation for mechanical valve. 2. Streptococcal pneumonia-chest x-ray with bilateral lower lobe pneumonia. Urine with strep pneumo. Blood cultures pending. IV Rocephin. Albuterol and DuoNeb aerosols. 3. Chronic combined systolic and diastolic heart failure-chest x-ray with bilateral lower lobe pneumonia. BNP normal. Echo with EF 45%. Continue home Lasix regimen. Patient received initial dose of IV Lasix due to suspected fluid overload. 4. Cirrhosis-nonalcoholic. Unclear etiology. GI consulted. Continue Lasix. 5. Valvular heart disease-history of mitral valve repair with mechanical valves and TV repair. On Coumadin. Echocardiogram demonstrates an EF of 45%, stable appearing mechanical mitral valve, annuloplasty ring in the tricuspid position, RVSP estimated to be 55 mmHg. 6. History of CVA-continue Coumadin. Not on aspirin, statin. 7. Paroxysmal atrial fibrillation-continue Coumadin. 8. CAD-not on beta-lili. Not on aspirin. Defer to outpatient. 9. Hypertension-stable, continue home regimen including lisinopril. 10. Hyperlipidemia-not on statin. DVT prophylaxis-Coumadin This patient was seen by MOLLY Gardiner under the supervision of Dr. Ford. Time spent examining patient, reviewing data and subsequent management of care: 18 minutes This patient was seen in conjunction with SULFUR CHLORIDE OPERATOREkta. I have independently interviewed and examined the patient and reviewed pertinent history, examination findings, laboratory and plan of management. I have reviewed the note and agree with the documented findings with the few additional points. In brief, patient is 81-year-old female admitted for progressive worsening of shortness of breath to the point of dyspnea at rest, bilateral lower extremity edema, clinical and radiologic features of CHF exacerbation. 1.? Acute on chronic systolic and diastolic combined heart failure, status post MVR, moderate TR consistent with valvular heart disease, paroxysmal A. fib: Patient on Lasix.? Heart failure core measures including intake and output, fluid restriction less than 1500 mL, daily weight monitoring, kidney and electrolytes monitoring.? 2D echo reported EF 45%, LA and RA severely enlarged, stable appearing mechanical mitral valve respirators.? Angioplastic ring in tricuspid position.? Moderate TR, trivial CT.? Small pericardial effusion.? RVSP 55 mmHg consistent with moderate pulmonary hypertension.? Serial high-sensitivity troponin is normal.? ACS ruled out. INR 2.5.? We will try to maintain INR between 2-2.5 as patient is severely anemic. 11/29: Patient shortness of breath and leg swelling has improved. IV Lasix changed to oral Lasix 40 mg daily a.m. and 20 mg p.m. Spironolactone 25 mg added for hypokalemia. Titrate up her dose of spironolactone. Patient has decreased exercise capacity, needs physical and occupational therapy. Patient does not have typical symptoms of pneumonia but has mild cough with bilateral pleural effusion. Her symptoms are mainly due to heart failure exacerbation. Urine antigen for Streptococcus positive consistent with a streptococcal pneumonia. Patient on IV ceftriaxone. 2.? Acute normocytic normochromic anemia, most likely iron deficiency anemia: Patient was also found very severely anemic, hemoglobin 7.3 and had 1 unit of PRBC transfusion.? Previous last hemoglobin 14.1 g in our system in May 2019.? As per son she does not follow usually physician.? Serum iron low, iron saturation 4.3% ferritin 4.? Folate normal.? IV iron ordered. 11/29: Patient had 2 units of PRBC transfusion. Patient hemoglobin improved to 9.2 g%. Patient does not have active GI bleed. GI was consulted. Plan for outpatient EGD. 3.? 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 Patient is not alcoholic and denies chronic viral hepatitis.? 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 Obtain ultrasound from [facility]. 11/29: Discussed with Dr. Kruse. We agree that most probable causes cardiac cirrhosis with history of valvular heart disease and congestive heart failure. Outpatient follow-up with Dr. Kruse. Ultrasound from [facility] on November 09 shows cirrhotic liver, 7 x 5 mm sludge GB polyp. No ascites. Continue furosemide and spironolactone as mentioned above. 4.? Hypokalemia her potassium is getting monitored and replaced accordingly 11/29: Potassium is 3.6. 5.? Other multiple comorbidities include hypertension, dyslipidemia, history of CVA, coronary artery disease, medication reconciliation. Total time of the visit including total time spent in counseling or coordination of care, (more than 50% of the total time, spent in obtaining medical information from nurses and other ancillary care providers,explaining to the patient about labs, imaging, diagnosis and management of active complex medical conditions), natural history of cirrhosis, heart failure with patient and son and overall prognosis, medical record review, review of labs and imaging is? 45 minutes.? I spent 37 minutes, Ekta SULFUR CHLORIDE OPERATOR spent 18 minutes Overall prognosis is not good.? Patient's son wanted DNRCC arrest with no intubation I have discussed my assessment with SULFUR CHLORIDE OPERATOREkta and orders have been reviewed. Charges/Coding Visit Charges Inpatient E&M: 26312 [facility] Hosp L3
[2021-11-29] MEDS: Ceftriaxone 1 GM/50 ML BAG IV (15:28)
--- NOTE | 2021-11-29 15:41 | CASEMGMT ---
SW spoke with patient and her son and let them know TCU can accept patient. Patient's son said he wants to take patient home. They were open to home health. A list will be given to patient and her son. Melyssa DONALDSON
[2021-11-29] MEDS: Ipratropium/Albuterol Sulfate 3 ML AMPUL.NEB INHALATION ×2 (16:02→20:12)
--- NOTE | 2021-11-29 16:34 | PN_ITS ---
Subjective Subjective Patient is doing well she has not shown any signs of bleeding at this time. She is tolerating a diet. She has less oxygen requirements. Objective Data Objective Data Vital Signs: Vital Signs Temp Pulse Resp BP Pulse Ox O2 Del Method O2 Flow Rate 98.3 F 65 16 122/51 H 94 Room Air 2 11/29/21 13:47 11/29/21 16:11 11/29/21 13:47 11/29/21 13:47 11/29/21 13:47 11/29/21 13:47 11/29/21 07:22 Oxygen Flow Rate (L/min) 2 Oxygen Delivery Method Room Air Weight: 133 lb 13.129 oz Body Mass Index (BMI) 26.2 Intake & Output: Intake and Output for Last 24 Hours 11/27/21 11/28/21 11/29/21 23:59 23:59 23:59 Intake Total 110 / 110 1020 / 1120 340 / 340 Output Total 300 / 300 900 / 1350 1250 / 1250 Balance -190 / -190 120 / -230 -910 / -910 Lab / Micro Data Result Diagrams: 11/29/21 05:54 11/29/21 05:54 Labs: Laboratory Results - last 24 hr 11/27/21 20:30: Crossmatch See Detail 11/27/21 20:30: Crossmatch See Detail 11/28/21 17:52: POC Glucose 98 11/28/21 23:04: POC Glucose 92 11/28/21 23:50: WBC 5.0, RBC 3.70 L, Hgb 9.3 L, Hct 31.4 L, MCV 84.9, MCH 25.1 L , MCHC 29.6 L, RDW Std Deviation 51.0 H, RDW Coeff of Bharathi 16.7 H, Plt Count 342, MPV 10.3, Immature Gran % (Auto) 0.200, Neut % (Auto) 71.4 H, Lymph % (Auto) 14.7 L, Wilkes % (Auto) 11.9 H, Eos % (Auto) 1.2, Baso % (Auto) 0.6, Absolute Neuts (auto) 3.6, Absolute Lymphs (auto) 0.74 L, Nucleated RBC % 0 11/28/21 23:50: Sodium 143, Potassium 3.8, Chloride 107, Carbon Dioxide 32.0, Anion Gap 4 L, BUN 18, Creatinine 0.53 L, Estim Creat Clear Calc 30.62, Est GFR (MDRD) Af Amer 142, Est GFR (MDRD) Non-Af 117, BUN/Creatinine Ratio 34.0 H, Glucose 90, Calcium 7.6 L 11/29/21 05:54: WBC 4.9, RBC 3.60 L, Hgb 9.2 L, Hct 30.2 L, MCV 83.9, MCH 25.6 L , MCHC 30.5 L, RDW Std Deviation 49.7 H, RDW Coeff of Bharathi 16.4 H, Plt Count 328, MPV 10.2, Immature Gran % (Auto) 0.200, Neut % (Auto) 67.7, Lymph % (Auto) 16.7 L, Wilkes % (Auto) 12.8 H, Eos % (Auto) 1.6, Baso % (Auto) 1.0, Absolute Neuts (auto) 3.3, Absolute Lymphs (auto) 0.82 L, Nucleated RBC % 0 11/29/21 05:54: Sodium 143, Potassium 3.6, Chloride 106, Carbon Dioxide 32.0, Anion Gap 5, BUN 17, Creatinine 0.52 L, Estim Creat Clear Calc 30.62, Est GFR (MDRD) Af Amer 145, Est GFR (MDRD) Non-Af 120, BUN/Creatinine Ratio 32.8 H, Glucose 75, Calcium 7.8 L, Total Bilirubin 0.50, AST 19, ALT 13, Alkaline Phosphatase 39 L, Total Protein 4.2 L, Albumin 1.8 L, Globulin 2.4, Albumin/Globulin Ratio 0.8 L 11/29/21 06:37: POC Glucose 76 Micro: Microbiology 11/29/21 09:30 Urine, Clean Catch Streptococcus pneumoniae Antigen (M - Final Streptococcus pneumonia Ag 11/27/21 23:45 Urine, Clean Catch Legionella Antigen - Final 11/27/21 20:38 Mucosa - Nasopharyngeal Respiratory Panel (PCR) - Final 11/27/21 17:55 Nasal Secretion SARS-CoV-2 & FLU Antigen (Rapid) - Final Physical Exam Narrative Seen and examined. General: Alert, Oriented x3, Cooperative HEENT: Atraumatic, PERRLA, EOMI, Normocephalic Oral: No Gingival or Mucosal Lesions/ Ulcerations Neck: Supple, elevated JVD, Negative Carotid Bruits Lungs: No tachypnea or hypoxia. Air entry diminished in bilateral lungs below sixth ICS. Bilateral pleural effusion. No crepitations/rhonchi. Cardiovascular: Sinus rhythm with PVCs. Normal S1, Normal S2, status post MVR, mechanical valve click, systolic murmur. Abdomen: Bowel Sounds Present, Soft, Non Tender, Non-Distended : No renal angle tenderness. No suprapubic tenderness. Extremities: Bilateral pitting lower extremity below knee level., Capillary Refill Less than 3 Seconds Skin: No rashes, No breakdown Musculoskeletal: No Tenderness to Palpation of Joints or Extremities. ROM intact Neurological: Cranial nerves II-XII grossly intact, DTR 2+/4 Psych/Mental Status: Flat affect. Const alert and oriented x3 Nutritional Appearance: cachectic HEENT normocephalic Mouth: dry mucous membranes Eyes PERRL, EOMs intact bilaterally and conjunctivae normal Neck no lymphadenopathy Resp normal respiratory effort and clear to auscultation bilaterally Cardio regular rate, regular rhythm and no murmurs Cardio Narrative: Junctional rhythm Peripheral Pulses: pulses 2+ throughout GI normal to inspection, nondistended, normoactive bowel sounds, non-tender and non-distended Extremity normal to inspection Skin no rashes or lesions noted Lesions: no lesions Rashes: no rashes Trauma: no lacerations or abrasions Neuro CN's II-XII intact bilaterally, no focal motor deficits, no sensory deficits noted and deep tendon reflexes 2+ bilaterally Psych mental status grossly normal and affect normal Assessment & Plan Assessment/Plan (1) Acute dyspnea: PLAN: Acute shortness of breath thought to be secondary to CHF. That is resolved and she is off of oxygen. She still remains on antibiotic therapy which she will continue as per hospitalist service. 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 I do not think she had any variceal bleed. She is not home known to have varices and that was not seen and her imaging. Recommend conservative therapy with iron oral therapy and outpatient work-up for her anemia. (3) Cirrhosis: PLAN: She has not shown any signs of decompensated cirrhosis other than some ascites which could be from CHF. She is not showing any signs of encephalopathy but I would have her on lactulose twice a day and Xifaxan 5 to 50 mg twice a day. Her blood pressure is stable and I will think she can tolerate more beta- lili therapy. Recommend to follow H&H q. weekly along with iron studies in approximately 2 weeks. Charges/Coding Visit Charges Inpatient E&M: 71375 Subs Hosp L2
[2021-11-29] MEDS: Spironolactone 25 MG Tablet PO (18:24)
[2021-11-29] MEDS: Atorvastatin Calcium 10 MG Tablet PO (21:09)
[2021-11-29] MEDS: Furosemide 20 MG Tablet PO (21:09)
[2021-11-30] VITALS (10 sets, daily range): BP systolic 106–131; BP diastolic 44–96; PULSE 59–74; RESP 14–16; TEMP 36.6–37; O2SAT 93–97
[2021-11-30 01:11] LABS: Bedside Glucose 109 mg/dL (74-106)
[2021-11-30 06:35] LABS: Absolute Lymphocyte Count 0.82 X10^3/uL (0.83-4.51); Absolute Neutrophil Count 4.6 X10^3/uL (2.0-7.7); Basophil# 0.04 X10^3/uL; Basophil% 0.6 % (0-1); Eosinophil# 0.11 X10^3/uL; Eosinophils% 1.7 % (0-5); Hematocrit 32.1 % (37-47); Hemoglobin 9.7 g/dL (12.0-15.0); Lymphocyte # 0.82 X10^3/ul (0.83-4.51); Mean Corp Hgb Conc 30.2 g/dL (32-36); Mean Corpuscular Hgb 25.8 pg (27.0-32.0); Mean Corpuscular Volume 85.4 fL (81-99); Mean Platelet Vol. 10.1 fl (6.2-12.0); Monocyte# 0.76 X10^3/uL; Monocyte% 12.1 % (0-10); NRBC Flagged by Analyzer 0 % (0-5); Neutrophil # 4.56 X10^3/uL (2.7-7.7); Neutrophil % 72.4 % (47-70); Platelet Count 359 K/mm3 (150-450); RBC Distribution Width CV 17.1 % (11.6-14.6); RBC Distribution Width SD 52.4 fl (35.1-43.9); Red Blood Count 3.76 M/mm3 (4.2-5.4); White Blood Count 6.3 K/mm3 (4.4-11.0)
[2021-11-30 06:41] LABS: Bedside Glucose 97 mg/dL (74-106)
[2021-11-30 06:42] LABS: International Normalized Ratio 2.7; Prothrombin Time (Protime)PT. 28.4 SECONDS (11.7-14.9)
[2021-11-30 07:07] LABS: Anion Gap 4 (5-15); BUN 17 mg/dL (7-18); Calcium,Total 8.1 mg/dL (8.5-10.1); Chloride 107 mmol/L (98-107); Creatinine, Serum 0.59 mg/dL (0.55-1.02); EST Glomerular Filtration Rate 104 mL/min (>60); Est Glom Filt Rate - Afr Amer 126 mL/min (>60); Estimated Creatinine Clearance 30.62 ml/min; Glucose 98 mg/dL (74-106); Potassium 3.4 mmol/L (3.5-5.1); Sodium Level 143 mmol/L (136-145)
[2021-11-30] MEDS: Ipratropium/Albuterol Sulfate 3 ML AMPUL.NEB INHALATION ×2 (07:33→11:07)
[2021-11-30] MEDS: Furosemide 40 MG Tablet PO (09:57)
[2021-11-30] MEDS: Lisinopril 2.5 MG Tablet PO (09:57)
[2021-11-30] MEDS: Spironolactone 50 MG Tablet PO (09:57)
[2021-11-30] MEDS: Ceftriaxone 1 GM/50 ML BAG IV (09:57)
--- NOTE | 2021-11-30 11:05 | PCM.DC ---
Discharge Instructions Diet Discharge Diet: No restrictions Activity Discharge Activity: Return to Normal Activity Dressing / Incision Call your doctor if you observe: Shortness of breath, Dizziness and Chest pain Follow Up Care Test Results: Test results from this visit will be discussed in further detail at your follow-up appointment, if applicable. Discharge Plan Admission Admit Date/Time: 11/27/21 20:13 Primary Reason for Your Visit: Anemia, pneumonia Attending Provider: Franklyn Ford Primary Care Provider: Warren Mendoza Consulting Providers: Genesis Casas Discharge Orders/Prescriptions Prescriptions: New furosemide 40 mg Tablet 40 mg PO DAILY 30 Days Qty: 30 0RF spironolactone 50 mg Tablet 50 mg PO DAILY 30 Days Qty: 30 0RF ferrous sulfate 325 mg (65 mg iron) tablet 325 mg PO BID Qty: 60 0RF lactulose 20 gram/30 mL solution 20 g PO BID Qty: 1200 0RF Xifaxan 550 mg tablet 550 mg PO BID Qty: 60 0RF amoxicillin 500 mg capsule 500 mg PO Q6H Qty: 24 0RF potassium chloride [K-Tab] 10 mEq tablet extended release 10 meq PO DAILY Qty: 30 0RF Continued nitroglycerin 0.4 mg tablet, sublingual 0.4 mg SUBLINGUAL Q5M PRN (Reason: Chest Pain) Qty: 25 0RF acetaminophen 500 MG tablet 500 mg PO Q6H PRN PRN (Reason: Mild Pain (1-10)) 0RF lisinopril 2.5 mg tablet 2.5 mg PO DAILY warfarin 3 mg Tablet 3 mg PO MOTUTHFRSA warfarin 2 mg Tablet 2 mg PO SUWE Discontinued potassium 99 mg Tablet 99 mg PO DAILY furosemide [Lasix] 40 mg tablet 20 mg PO DAILY Referrals / Follow Up: Warren Mendoza MD [Primary Care Provider] - In 1 Week Hunter Kruse DO [Med Staff - Active Staff] - Within 2 Weeks Nathaniel Braswell NP, COLOR SEPARATION PHOTOGRAPHER-C [Med Staff - Adv Practice Prof] - In 1 Week Disposition Disposition (needs filled in before D/C Order can be placed): Home, Self Care
--- NOTE | 2021-11-30 11:33 | DS.PCM_ITS ---
Documented by User: Ekta Toure NP, MANAGED CARE MANAGER-C 11/30/21 11:40 Providers Date of Admission: 11/27/21 Date of Discharge: 11/30/21 Primary Care Physician: Dr. Warren Mendoza MD Consultations 11/27/21 21:38 Consult: Gastroenterology Routine Consulting Provider: [facility] Reason for Consult: acute on chronic anemia, admit with dyspnea, on coumadin mechanical valve. EMERGENT Consult: No MD Notified: Yes Date Notified: 11/27/21 Time Notified: 20:24 Method of Notification: Text Reason For Visit: ANEMIA,WEAKNESS,PLEURAL EFFUSIONS Diagnosis Discharge Diagnosis (1) Acute dyspnea: Status: Acute Code(s): R06.00 - Dyspnea, unspecified (2) Anemia: Status: Acute Code(s): D64.9 - Anemia, unspecified (3) Cirrhosis: Status: Chronic Code(s): K74.60 - Unspecified cirrhosis of liver Medications at Discharge Home Medications nitroglycerin 0.4 mg sublingual tablet 0.4 mg sublingual Q5M PRN Chest Pain #25 tabs 08/01/17 acetaminophen 500 mg tablet 500 mg PO Q6H PRN PRN Mild Pain (1-3/10) 10/21/17 lisinopril 2.5 mg tablet 2.5 mg PO DAILY blood pressure 02/05/19 amoxicillin 500 mg capsule 500 mg PO Q6H #24 caps 11/30/21 ferrous sulfate 325 mg (65 mg iron) tablet 325 mg PO BID #60 tabs 11/30/21 furosemide 40 mg tablet 40 mg PO DAILY 30 days #30 tabs 11/30/21 lactulose 20 gram/30 mL oral solution 20 g (30 mL) PO BID #1,200 mL 11/30/21 rifaximin 550 mg tablet (Xifaxan) 550 mg PO BID #60 tabs 11/30/21 spironolactone 50 mg tablet 50 mg PO DAILY 30 days #30 tabs 11/30/21 warfarin 2 mg tablet 2 mg PO SUWE blood thinner 11/30/21 warfarin 3 mg tablet 3 mg PO MOTUTHFRSA blood thinner 11/30/21 Hospital Course Operations None Procedures 2-D Echocardiogram Summary of Care Provided Hospital Course: Patient is an 81-year-old female admitted 11/27/2021 due to dyspnea. 1.? Acute normocytic anemia-GI consulted.? Plan for conservative management treatment at this time. Discharged on oral iron. Hemoglobin stable. Follow-up with GI in 2 weeks for ongoing anemia assessment. 2. Streptococcal pneumonia-chest x-ray with bilateral lower lobe pneumonia.? Urine with strep pneumo.? Blood cultures without growth.? IV Rocephin during admission. Transition to amoxicillin at discharge to complete course. Oxygen stable on room air. 3. Chronic combined systolic and diastolic heart failure-chest x-ray with bilateral lower lobe pneumonia.? BNP normal.? Echo with EF 45%.? Home Lasix increased to 40 mg daily.? 4. Cirrhosis-nonalcoholic.? Noted on recent ultrasound at [facility]. Patient will follow-up with GI as outpatient. Initiated on lactulose, Xifaxan, spironolactone. Continue home Lasix. 5. Valvular heart disease-history of mitral valve repair with mechanical valves and TV repair.? On Coumadin.? Echocardiogram demonstrates an EF of 45%, stable appearing mechanical mitral valve, annuloplasty ring in the tricuspid position, RVSP estimated to be 55 mmHg. INR therapeutic. 6. History of CVA-continue Coumadin.? Not on aspirin, statin. 7. Paroxysmal atrial fibrillation-continue Coumadin. 8. CAD-not on beta-lili.? Not on aspirin.? Defer to outpatient. 9. Hypertension-stable, continue home regimen including lisinopril. 10. Hyperlipidemia-not on statin. Defer to outpatient. Physical Exam Const alert and oriented x3 Nutritional Appearance: cachectic HEENT normocephalic Mouth: dry mucous membranes Eyes PERRL, EOMs intact bilaterally and conjunctivae normal Neck no lymphadenopathy Resp normal respiratory effort and clear to auscultation bilaterally Cardio regular rate, regular rhythm and no murmurs Cardio Narrative: Junctional rhythm Peripheral Pulses: pulses 2+ throughout GI normal to inspection, nondistended, normoactive bowel sounds, non-tender and non-distended Extremity normal to inspection Skin no rashes or lesions noted Lesions: no lesions Rashes: no rashes Trauma: no lacerations or abrasions Neuro CN's II-XII intact bilaterally, no focal motor deficits, no sensory deficits noted and deep tendon reflexes 2+ bilaterally Psych mental status grossly normal and affect normal Patient seen and examined prior to discharge. Physical assessment as noted above. Patient is stable for discharge with follow up recommendations as noted above. This patient was seen by MOLLY Gardiner under the supervision of Dr. Ford. Time spent examining patient, reviewing data and subsequent management of care: 23 minutes Weight / BMI Weight Weight: 133 lb 13.129 oz Body Mass Index (BMI) 26.2 ABG / Lab / Microbiology Data Result Diagrams: 11/30/21 05:43 11/30/21 05:43 Laboratory: Laboratory Results - last 24 hr 11/30/21 00:48: POC Glucose 109 H 11/30/21 05:43: WBC 6.3, RBC 3.76 L, Hgb 9.7 L, Hct 32.1 L, MCV 85.4, MCH 25.8 L , MCHC 30.2 L, RDW Std Deviation 52.4 H, RDW Coeff of Bharathi 17.1 H, Plt Count 359, MPV 10.1, Immature Gran % (Auto) 0.200, Neut % (Auto) 72.4 H, Lymph % (Auto) 13.0 L, [place] % (Auto) 12.1 H, Eos % (Auto) 1.7, Baso % (Auto) 0.6, Absolute Neuts (auto) 4.6, Absolute Lymphs (auto) 0.82 L, Nucleated RBC % 0 11/30/21 05:43: PT 28.4 H, INR 2.7 11/30/21 05:43: Sodium 143, Potassium 3.4 L, Chloride 107, Carbon Dioxide 32.0, Anion Gap 4 L, BUN 17, Creatinine 0.59, Estim Creat Clear Calc 30.62, Est GFR (MDRD) Af Amer 126, Est GFR (MDRD) Non-Af 104, BUN/Creatinine Ratio 29.0 H, Glucose 98, Calcium 8.1 L 11/30/21 06:23: POC Glucose 97 Microbiology: Microbiology 11/27/21 20:30 Blood Culture (Wb) - Anticubital Right Blood Culture - Preliminary No growth in 48 hours. 11/27/21 18:50 Blood Culture (Wb) - Anticubital Right Blood Culture - Preliminary No growth in 48 hours. 11/29/21 09:30 Urine, Clean Catch Streptococcus pneumoniae Antigen (M - Final Streptococcus pneumonia Ag 11/27/21 23:45 Urine, Clean Catch Legionella Antigen - Final 11/27/21 20:38 Mucosa - Nasopharyngeal Respiratory Panel (PCR) - Final 11/27/21 17:55 Nasal Secretion SARS-CoV-2 & FLU Antigen (Rapid) - Final D/C Instructions Discharge Diet: No restrictions Call your doctor if you observe: Shortness of breath, Dizziness and Chest pain Meaningful Use Info Meaningful Use Diagnoses (Choose all that apply): None applicable Discharge Plan Admission Admit Date/Time: 11/27/21 20:13 Primary Reason for Your Visit: Anemia, pneumonia Attending Provider: Franklyn Ford Primary Care Provider: Warren Mendoza Consulting Providers: Genesis Casas Discharge Orders/Prescriptions Prescriptions: New furosemide 40 mg Tablet 40 mg PO DAILY 30 Days Qty: 30 0RF spironolactone 50 mg Tablet 50 mg PO DAILY 30 Days Qty: 30 0RF ferrous sulfate 325 mg (65 mg iron) tablet 325 mg PO BID Qty: 60 0RF lactulose 20 gram/30 mL solution 20 g PO BID Qty: 1200 0RF Xifaxan 550 mg tablet 550 mg PO BID Qty: 60 0RF amoxicillin 500 mg capsule 500 mg PO Q6H Qty: 24 0RF Continued nitroglycerin 0.4 mg tablet, sublingual 0.4 mg SUBLINGUAL Q5M PRN (Reason: Chest Pain) Qty: 25 0RF acetaminophen 500 MG tablet 500 mg PO Q6H PRN PRN (Reason: Mild Pain (-06/14)) 0RF lisinopril 2.5 mg tablet 2.5 mg PO DAILY warfarin 3 mg Tablet 3 mg PO MOTUTHFRSA warfarin 2 mg Tablet 2 mg PO SUWE Discontinued potassium 99 mg Tablet 99 mg PO DAILY furosemide [Lasix] 40 mg tablet 20 mg PO DAILY Referrals / Follow Up: Warren Mendoza MD [Primary Care Provider] - In 1 Week Hunter Kruse DO [Med Staff - Active Staff] - 01/04/22 2:15 pm Nathaniel Braswell NP, ALEJANDRO-C [Med Staff - Adv Practice Prof] - In 1 Week (HAS APPOINTMENT 11/30 AT 3:30) Disposition Disposition (needs filled in before D/C Order can be placed): Home, Self Care Documented by User: Dr. Franklyn Ford MD 11/30/21 15:41 Providers Date of Admission: 11/27/21 Reason For Visit: ANEMIA,WEAKNESS,PLEURAL EFFUSIONS Diagnosis Discharge Diagnosis (1) Acute dyspnea: Status: Acute Code(s): R06.00 - Dyspnea, unspecified (2) Anemia: Status: Acute Code(s): D64.9 - Anemia, unspecified (3) Cirrhosis: Status: Chronic Code(s): K74.60 - Unspecified cirrhosis of liver Medications at Discharge Home Medications nitroglycerin 0.4 mg sublingual tablet 0.4 mg sublingual Q5M PRN Chest Pain #25 tabs 08/01/17 acetaminophen 500 mg tablet 500 mg PO Q6H PRN PRN Mild Pain (1-3) 10/21/17 lisinopril 2.5 mg tablet 2.5 mg PO DAILY blood pressure 02/05/19 amoxicillin 500 mg capsule 500 mg PO Q6H #24 caps 11/30/21 ferrous sulfate 325 mg (65 mg iron) tablet 325 mg PO BID #60 tabs 11/30/21 furosemide 40 mg tablet 40 mg PO DAILY 30 days #30 tabs 11/30/21 lactulose 20 gram/30 mL oral solution 20 g (30 mL) PO BID #1,200 mL 11/30/21 rifaximin 550 mg tablet (Xifaxan) 550 mg PO BID #60 tabs 11/30/21 spironolactone 50 mg tablet 50 mg PO DAILY 30 days #30 tabs 11/30/21 warfarin 2 mg tablet 2 mg PO SUWE blood thinner 11/30/21 warfarin 3 mg tablet 3 mg PO MOTUTHFRSA blood thinner 11/30/21 Hospital Course Summary of Care Provided Hospital Course: Patient is an 81-year-old female admitted 11/27/2021 due to dyspnea. 1.? Acute normocytic anemia-GI consulted.? Plan for conservative management treatment at this time. Discharged on oral iron. Hemoglobin stable. Follow-up with GI in 2 weeks for ongoing anemia assessment. 2. Streptococcal pneumonia-chest x-ray with bilateral lower lobe pneumonia.? Urine with strep pneumo.? Blood cultures without growth.? IV Rocephin during admission. Transition to amoxicillin at discharge to complete course. Oxygen stable on room air. 3. Chronic combined systolic and diastolic heart failure-chest x-ray with bilateral lower lobe pneumonia.? BNP normal.? Echo with EF 45%.? Home Lasix i ncreased to 40 mg daily.? 4. Cirrhosis-nonalcoholic.? Noted on recent ultrasound at [facility]. Patient will follow-up with GI as outpatient. Initiated on lactulose, Xifaxan, spironolactone. Continue home Lasix. 5. Valvular heart disease-history of mitral valve repair with mechanical valves and TV repair.? On Coumadin.? Echocardiogram demonstrates an EF of 45%, stable appearing mechanical mitral valve, annuloplasty ring in the tricuspid position, RVSP estimated to be 55 mmHg. INR therapeutic. 6. History of CVA-continue Coumadin.? Not on aspirin, statin. 7. Paroxysmal atrial fibrillation-continue Coumadin. 8. CAD-not on beta-lili.? Not on aspirin.? Defer to outpatient. 9. Hypertension-stable, continue home regimen including lisinopril. 10. Hyperlipidemia-not on statin. Defer to outpatient. his patient was seen in conjunction with MANAGED CARE MANAGER, Ekta.? I have independently in terviewed and examined the patient and reviewed pertinent history, examination findings, laboratory and plan of management.? I have? reviewed the note and agree with the documented findings with the few? additional points. In brief, patient is 81-year-old female admitted for progressive worsening of shortness of breath to the point of dyspnea at rest, bilateral lower extremity edema, clinical and radiologic features of CHF exacerbation. 1.? Acute on chronic systolic and diastolic combined heart failure, status post MVR, moderate TR consistent with valvular heart disease, paroxysmal A. fib: Patient on Lasix.? Heart failure core measures including intake and output, fluid restriction less than 1500 mL, daily weight monitoring, kidney and electrolytes monitoring.? 2D echo reported EF 45%, LA and RA severely enlarged, stable appearing mechanical mitral valve respirators.? Angioplastic ring in tricuspid position.? Moderate TR, trivial [place].? Small pericardial effusion.? RVSP 55 mmHg consistent with moderate pulmonary hypertension.? Serial high- sensitivity troponin is normal.? ACS ruled out. INR 2.5.? We will try to maintain INR between 2-2.5 as patient is severely anemic. 8/26: Patient shortness of breath has improved. Lasix IV changed to 40 mg daily. Spironolactone increased to 50 mg daily for hypokalemia. Titrate up the dose of his spironolactone as per tolerated as an outpatient. ? Patient has decreased exercise capacity, needs physical and occupational therapy.? Patient d oes not have typical symptoms of pneumonia but has mild cough with bilateral pleural effusion.? Her symptoms are mainly due to heart failure exacerbation.? Urine antigen for Streptococcus positive consistent with a streptococcal pneumonia.? Patient on IV ceftriaxone. Patient discharged on amoxicillin. 2.? Acute normocytic normochromic anemia, most likely iron deficiency anemia: Patient was also found very severely anemic, hemoglobin 7.3 and had 1 unit of PRBC transfusion.? Previous last hemoglobin 14.1 g in our system in May 2019.? As per son she does not follow usually physician.? Serum iron low, iron saturation 4.3% ferritin 4.? Folate normal.? IV iron ordered. 11/29: Patient had 2 units of PRBC transfusion.? Patient hemoglobin improved to 9.2 g%.? Patient does not have active GI bleed.? GI was consulted.? Plan for outpatient EGD. 11/30: Patient discharged on ferrous sulfate. Outpatient monitoring of CBC and iron in 2 weeks and follow-up with Dr. Kruse. 3.? 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 Patient is not alcoholic and denies chronic viral hepatitis.? 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 Obtain ultrasound from [facility]. 11/29: Discussed with Dr. Kruse.? We agree that most probable causes cardiac cirrhosis with history of valvular heart disease and congestive heart failure.? Outpatient follow-up with Dr. Kruse.? Ultrasound from [facility] on November 09 shows cirrhotic liver, 7 x 5 mm sludge GB polyp.? No ascites.? Continue furosemide and spironolactone as mentioned above. Lactulose and Xifaxan prescription given. 4.? Hypokalemia her potassium is getting monitored and replaced accordingly 11/29: Potassium is 3.6. 5.? Other multiple comorbidities include hypertension, dyslipidemia, history of CVA, coronary artery disease, medication reconciliation. Discharge medication reconciliation done. Discharge follow-up instructions completed. Discharge process discussed with the patient and all questions were answered to patient's satisfaction. Discharge medications discussed with patient's son. Total time spent, exact 35 minutes on discharge meds reconciliation, examination, coordination of care with nurses and ancillary staff, review of imaging and blood test and discussion with the patient on follow-up instructions. Physical Exam Const alert and oriented x3 Nutritional Appearance: cachectic HEENT normocephalic Mouth: dry mucous membranes Eyes PERRL, EOMs intact bilaterally and conjunctivae normal Neck no lymphadenopathy Resp normal respiratory effort and clear to auscultation bilaterally Cardio regular rate, regular rhythm and no murmurs Cardio Narrative: Junctional rhythm Peripheral Pulses: pulses 2+ throughout GI normal to inspection, nondistended, normoactive bowel sounds, non-tender and non-distended Extremity normal to inspection Skin no rashes or lesions noted Lesions: no lesions Rashes: no rashes Trauma: no lacerations or abrasions Neuro CN's II-XII intact bilaterally, no focal motor deficits, no sensory deficits noted and deep tendon reflexes 2+ bilaterally Psych mental status grossly normal and affect normal Patient seen and examined prior to discharge. Physical assessment as noted above. Patient is stable for discharge with follow up recommendations as noted above. This patient was seen by MOLLY Gardiner under the supervision of Dr. Ford. Time spent examining patient, reviewing data and subsequent management of care: 23 minutes Physical Exam Narrative Seen and examined. General: Alert, Oriented x3, Cooperative HEENT: Atraumatic, PERRLA, EOMI, Normocephalic Oral: No Gingival or Mucosal Lesions/ Ulcerations Neck: Supple, normal JVD, Negative Carotid Bruits Lungs: No tachypnea or hypoxia. Air entry diminished in bilateral lungs below eight ICS. Mild bilateral pleural effusion. No crepitations/rhonchi. Cardiovascular: Sinus rhythm with PVCs. Normal S1, Normal S2, status post MVR, mechanical valve click, systolic murmur. Abdomen: Bowel Sounds Present, Soft, Non Tender, Non-Distended : No renal angle tenderness. No suprapubic tenderness. Extremities: Bilateral pitting lower extremity 2+, Capillary Refill Less than 3 Seconds Skin: No rashes, No breakdown Musculoskeletal: No Tenderness to Palpation of Joints or Extremities. ROM inta ct Neurological: Cranial nerves II-XII grossly intact, DTR 2+/4 Psych/Mental Status: Flat affect. ABG / Lab / Microbiology Data Result Diagrams: 11/30/21 05:43 11/30/21 05:43 Discharge Plan Admission Admit Date/Time: 11/27/21 20:13 Primary Reason for Your Visit: Anemia, pneumonia Attending Provider: Franklyn Ford Primary Care Provider: Warren Mendoza Consulting Providers: Genesis Casas Discharge Orders/Prescriptions Prescriptions: New furosemide 40 mg Tablet 40 mg PO DAILY 30 Days Qty: 30 0RF spironolactone 50 mg Tablet 50 mg PO DAILY 30 Days Qty: 30 0RF ferrous sulfate 325 mg (65 mg iron) tablet 325 mg PO BID Qty: 60 0RF lactulose 20 gram/30 mL solution 20 g PO BID Qty: 1200 0RF Xifaxan 550 mg tablet 550 mg PO BID Qty: 60 0RF amoxicillin 500 mg capsule 500 mg PO Q6H Qty: 24 0RF Continued nitroglycerin 0.4 mg tablet, sublingual 0.4 mg SUBLINGUAL Q5M PRN (Reason: Chest Pain) Qty: 25 0RF acetaminophen 500 MG tablet 500 mg PO Q6H PRN PRN (Reason: Mild Pain (1-06/14)) 0RF lisinopril 2.5 mg tablet 2.5 mg PO DAILY warfarin 3 mg Tablet 3 mg PO MOTUTHFRSA warfarin 2 mg Tablet 2 mg PO SUWE Discontinued potassium 99 mg Tablet 99 mg PO DAILY furosemide [Lasix] 40 mg tablet 20 mg PO DAILY Referrals / Follow Up: Warren Mendoza MD [Primary Care Provider] - In 1 Week Hunter Kruse DO [Med Staff - Active Staff] - 01/04/22 2:15 pm Nathaniel Braswell NP, MANAGED CARE MANAGER-C [Med Staff - Adv Practice Prof] - In 1 Week (HAS APPOINTMENT 11/30 AT 3:30) Disposition Disposition (needs filled in before D/C Order can be placed): Home, Self Care Charges/Coding Visit Charges Inpatient E&M: 22431 Disch Hosp
--- NOTE | 2021-11-30 12:50 | CASEMGMT ---
SW spoke with patient and her son regarding home health. SW provided Patient and her son with a list of HH providers including quality and resource use data and consistent with the patient?s preferred geographic region, medical needs, and insurance network. Patient and her son said their preference would be [facility] as patient's is alredy active with them. SW sent a referral to [facility] via [employer]. Await response. SW also spoke with patient's son regarding Medicare and options for Medicare. SW provided patient's son with information on [facility] Insurance Information Program. Plan: d/c home with home health pending home health acceptance. Melyssa Levi CHIEF CREW SCHEDULERRere DONALDSON
--- NOTE | 2021-11-30 14:50 | CASEMGMT ---
[facility] has accepted patient and they will see her Friday. Physician is okay with delayed opening. MILENA sent d/c orders to [facility] via [employer]. SW also notified patient and her son. Plan: d/c home with [facility] prison, PT, and OT. Melyssa Levi CAMP COUNSELOR MENDOZA
== END 2021-11-30 15:09 | disposition home health service (06) | DRG 811 ==
LOC: ED 19:52 → PCU 11-28 07:06
PROVIDERS: Internal Medicine Gastroenterology; Nurse Practitioner Family; Admitting Provider Family Medicine; Emergency Provider Emergency Medicine; PCP Family Medicine; Visit Provider Internal Medicine
DX: D50.9 Iron deficiency anemia, unspecified (principal); J13 Pneumonia due to Streptococcus pneumoniae; I50.43 Acute on chronic combined systolic (congestive) and diastolic (congestive) heart failure; I42.9 Cardiomyopathy, unspecified; I27.20 Pulmonary hypertension, unspecified; I11.0 Hypertensive heart disease with heart failure; E11.9 Type 2 diabetes mellitus without complications; I48.0 Paroxysmal atrial fibrillation; K74.60 Unspecified cirrhosis of liver; E78.5 Hyperlipidemia, unspecified; E87.6 Hypokalemia; K44.9 Diaphragmatic hernia without obstruction or gangrene; I25.10 Atherosclerotic heart disease of native coronary artery without angina pectoris; Z20.822 Contact with and (suspected) exposure to COVID-19; Z79.01 Long term (current) use of anticoagulants; Z79.899 Other long term (current) drug therapy; Z86.73 Personal history of transient ischemic attack (TIA), and cerebral infarction without residual deficits; Z95.2 Presence of prosthetic heart valve; Z95.5 Presence of coronary angioplasty implant and graft
CPT/HCPCS: 36415; 71045; 80048; 80053; 80061; 80076; 82607; 82728; 82746; 82962; 83036; 83540; 83550; 83735; 83880; 84145; 84443; 84484; 85014; 85018; 85025; 85610; 86850; 86900; 86901; 86920; 86922; 87040; 87428; 87449; 87633; 87635; 87641; 93005; 93306; 94640; 97162; 97166; 99285; J7040; J7050; P9016; A4216; J1940; J2916; U0003; U0005

== ENCOUNTER → 2022-01-04 | Outpatient (CLI) | payer MEDICARE, SELFPAY ==
[2022-01-04 16:37] LABS: Absolute Lymphocyte Count 1.39 X10^3/uL (0.83-4.51); Absolute Neutrophil Count 3.9 X10^3/uL (2.0-7.7); Basophil# 0.04 X10^3/uL; Basophil% 0.7 % (0-1); Eosinophil# 0.07 X10^3/uL; Eosinophils% 1.2 % (0-5); Hematocrit 39.3 % (37-47); Hemoglobin 12.5 g/dL (12.0-15.0); Immature Platelet Fraction 2.4 % (1.0-7.9); Lymphocyte # 1.39 X10^3/ul (0.83-4.51); Lymphocyte % 23.1 % (19-41); Mean Corp Hgb Conc 31.8 g/dL (32-36); Mean Corpuscular Hgb 27.7 pg (27.0-32.0); Mean Corpuscular Volume 86.9 fL (81-99); Mean Platelet Vol. 9.7 fl (6.2-12.0); Monocyte# 0.64 X10^3/uL; Monocyte% 10.6 % (0-10); NRBC Flagged by Analyzer 0 % (0-5); Neutrophil # 3.85 X10^3/uL (2.7-7.7); Neutrophil % 64.1 % (47-70); POSITIVE MORPHOLOGY YES; Platelet Count 259 K/mm3 (150-450); RBC Distribution Width CV 21.8 % (11.6-14.6); RBC Distribution Width SD 68.1 fl (35.1-43.9); RET-HE 36.6 pg (30-35); Red Blood Count 4.52 M/mm3 (4.2-5.4); Reticulocyte Count 1.61 % (0.5-1.5)
[2022-01-04 16:38] LABS: Differential Indicated SCAN CRITERIA MET
[2022-01-04 16:39] LABS: Anisocytosis 1+; Platelet Estimate ADEQUATE (ADEQ); Platelet Morphology LARGE; Red Cell Morphology N CHROM NORMAL (NORM C&C)
[2022-01-04 16:40] LABS: AST(SGOT) 28 U/L (15-37); Alanine Aminotransfer ALT/SGPT 24 U/L (13-56); Albumin, Serum 3.6 g/dL (3.2-5.0); Alkaline Phosphatase 68 U/L (45-117); Anion Gap 6 (5-15); BUN 27 mg/dL (7-18); BUN/Creat Ratio 28.1 RATIO (10-20); Calcium,Total 9.7 mg/dL (8.5-10.1); Chloride 100 mmol/L (98-107); Creatinine, Serum 0.96 mg/dL (0.55-1.02); EST Glomerular Filtration Rate 59 mL/min (>60); Est Glom Filt Rate - Afr Amer 71 mL/min (>60); Ferritin 33 ng/mL (8-252); Globulin 3.5 g/dL (2.2-4.2); Glucose 88 mg/dL (74-106); Iron 84 ug/dL (50-170); Iron Binding Capacity,Total 398 ug/dL (250-450); Macrocytosis RARE; PERCENT IRON SATURATION 21.1 % (15.0-55.0); Potassium 5.2 mmol/L (3.5-5.1); Protein, Total 7.1 g/dL (6.4-8.2); Sodium Level 135 mmol/L (136-145)
[2022-01-06 09:39] LABS: AFP, Tumor Marker 3.2 ng/mL (0.0-8.7)
== END | disposition home or self-care (01) ==
LOC: LAB 15:35
PROVIDERS: PCP Family Medicine; Referring Provider Internal Medicine Gastroenterology; Visit Provider Internal Medicine Gastroenterology
DX: K74.60 Unspecified cirrhosis of liver (principal); R18.8 Other ascites; E78.5 Hyperlipidemia, unspecified; Z98.890 Other specified postprocedural states
CPT/HCPCS: 36415; 80053; 82105; 82140; 82728; 83540; 83550; 85025; 85045

== ENCOUNTER → 2022-04-12 | Outpatient (CLI) | payer MEDICARE, SELFPAY ==
[2022-04-12 15:41] LABS: Absolute Neutrophil Count 3.2 X10^3/uL (2.0-7.7); Basophil# 0.02 X10^3/uL; Basophil% 0.4 % (0-1); Eosinophil# 0.11 X10^3/uL; Eosinophils% 2.2 % (0-5); Hematocrit 38.3 % (37-47); Hemoglobin 12.8 g/dL (12.0-15.0); Lymphocyte % 23.5 % (19-41); Mean Corp Hgb Conc 33.4 g/dL (32-36); Mean Corpuscular Hgb 32.7 pg (27.0-32.0); Mean Corpuscular Volume 97.7 fL (81-99); Mean Platelet Vol. 9.7 fl (6.2-12.0); Monocyte# 0.59 X10^3/uL; Monocyte% 11.5 % (0-10); NRBC Flagged by Analyzer 0 % (0-5); Neutrophil # 3.18 X10^3/uL (2.7-7.7); Neutrophil % 62.2 % (47-70); Platelet Count 285 K/mm3 (150-450); RBC Distribution Width CV 15.4 % (11.6-14.6); RBC Distribution Width SD 55.6 fl (35.1-43.9); Red Blood Count 3.92 M/mm3 (4.2-5.4); White Blood Count 5.1 K/mm3 (4.4-11.0)
[2022-04-12 16:18] LABS: ALB/GLOB Ratio 1.2 RATIO (0.9-2.4); AST(SGOT) 24 U/L (15-37); Alanine Aminotransfer ALT/SGPT 26 U/L (13-56); Alkaline Phosphatase 71 U/L (45-117); Anion Gap 4 (5-15); BUN 34 mg/dL (7-18); BUN/Creat Ratio 37.9 RATIO (10-20); Calcium,Total 9.7 mg/dL (8.5-10.1); Chloride 103 mmol/L (98-107); EST Glomerular Filtration Rate 64 mL/min (>60); Est Glom Filt Rate - Afr Amer 77 mL/min (>60); Globulin 3.4 g/dL (2.2-4.2); Glucose 126 mg/dL (74-106); Potassium 5.5 mmol/L (3.5-5.1); Protein, Total 7.4 g/dL (6.4-8.2); Sodium Level 136 mmol/L (136-145)
== END | disposition home or self-care (01) ==
LOC: LAB 14:23
PROVIDERS: PCP Family Medicine; Visit Provider Internal Medicine Gastroenterology
DX: K74.60 Unspecified cirrhosis of liver (principal); R18.8 Other ascites; E78.5 Hyperlipidemia, unspecified
CPT/HCPCS: 36415; 80053; 82140; 85025

== ENCOUNTER 2022-04-22 22:06 | Emergency (ER) | payer MEDICARE, SELFPAY ==
[2022-04-22 22:07] VITALS: BP 130/51; PULSE 79; RESP 20; TEMP 36.7; O2SAT 100; BMI 24.3
[2022-04-22 22:13] VITALS: O2SAT 100
--- NOTE | 2022-04-22 22:18 | EKG12_ITS ---
Test Reason : DYSRHYTHMIA Blood Pressure : / mmHG Vent. Rate : 068 BPM Atrial Rate : 068 BPM P-R Int : 000 ms QRS Dur : 132 ms QT Int : 454 ms P-R-T Axes : 000 -47 114 degrees QTc Int : 482 ms Junctional rhythm Left axis deviation Non-specific intra-ventricular conduction block Abnormal ECG Confirmed by SHEKHAR HIGUERA, MANOLO ([id number]), editor book DULCE STEVE ([id number]) on 04/24/2022 2:42:56 PM Referred By: OSMAR Confirmed By:MANOLO CORRGIAN MD
--- NOTE | 2022-04-22 22:19 | EDS_ITS ---
HPI History of Present Illness Chief Complaint: Shortness of Breath Informant: patient Onset/Context/Timing Onset: Today Current Severity: Gone Maximum Severity: Moderate Narrative Narrative: Patient presents secondary to an episode of dyspnea. She states she was not feeling well this evening went to bed about 8:00. She noted increased difficulty breathing. EMS was called and she states that the time they arrived the episodes seem to be resolved. She denies chest pain currently but states she had some mild pain at the time. She did note she had more trouble breathing when she laid down to sleep. She is a history of CHF and pleural effusions. She states they have not been giving her any problems recently. [facility] Medical History Acute on chronic systolic heart failure Anemia Anxiety and depression Atherosclerotic heart disease of [place] coronary artery without angina pectoris Atrial fibrillation Chronic systolic congestive heart failure Diabetes mellitus GERD (gastroesophageal reflux disease) History of CVA (cerebrovascular accident) Hyperlipidemia Hypertension [facility] (current) use of anticoagulants Pleural effusion Pulmonary hypertension Home Medications nitroglycerin 0.4 mg sublingual tablet 0.4 mg sublingual Q5M PRN Chest Pain #25 tabs 08/01/17 [Rx Last Taken Unknown] acetaminophen 500 mg tablet 500 mg PO Q6H PRN PRN Mild Pain (1-06/14) 10/21/17 [ Rx Last Taken Unknown] lisinopril 2.5 mg tablet 2.5 mg PO DAILY blood pressure 02/05/19 [History Last Taken 11/27/21] amoxicillin 500 mg capsule 500 mg PO Q6H #24 caps 11/30/21 [Rx Last Taken Unknown] ferrous sulfate 325 mg (65 mg iron) tablet 325 mg PO BID #60 tabs 11/30/21 [Rx Last Taken Unknown] furosemide 40 mg tablet 40 mg PO DAILY 30 days #30 tabs 11/30/21 [Rx Last Taken Unknown] rifaximin 550 mg tablet (Xifaxan) 550 mg PO BID #60 tabs 11/30/21 [Rx Last Taken Unknown] spironolactone 50 mg tablet 50 mg PO DAILY 30 days #30 tabs 11/30/21 [Rx Last Taken Unknown] warfarin 2 mg tablet 2 mg PO SUWE blood thinner 11/30/21 [History Last Taken Unknown] warfarin 3 mg tablet 3 mg PO MOTUTHFRSA blood thinner 11/30/21 [History Last Taken Unknown] lactulose 20 gram/30 mL oral solution 20 g (30 mL) PO BID #1,200 mL 01/11/22 [Rx Last Taken Unknown] Allergy/AdvReac Type Severity Reaction Status Date / Time cortisone Allergy Unknown Verified 04/12/22 13:49 Family History Father CAD (coronary artery disease) Sudden cardiac , Onset Age: 68 Surgical History H/O mitral valve replacement with mechanical valve History of angioplasty Hx of appendectomy Social History household members: other details: Lives with her son. Smoking Status: Never smoker alcohol intake: never substance use type: does not use caffeine: Yes Type: coffee ROS ROS ED Constitutional Constitutional ED: Denies chills or fever(s) Eyes Eyes: Denies change in vision or discharge from eye(s) ENT ENT ED: Denies discharge from eye(s), rhinorrhea or sore throat Cardiovascular Cardiovascular: Reports chest pain; Denies palpitations Respiratory/Chest Respiratory/Chest: Reports dyspnea; Denies cough Gastrointestinal Gastrointestinal: Denies abdominal pain, diarrhea, nausea or vomiting Genitourinary Genitourinary ED: Denies difficulty urinating or dysuria Musculoskeletal Musculoskeletal: Denies back pain or extremity pain Integumentary Denies Abrasions or rash Neurologic Neurologic: Denies headache(s) or weakness Allergic/Immunologic Allergic/Immunologic ED: Denies lip swelling or urticaria EXAM Physical Exam Const Vital Signs: 04/22/22 22:07 04/22/22 22:07 04/22/22 22:13 Temperature 98.0 F 98.0 F Temperature Source Temporal Temporal Pulse Rate 79 79 Respiratory Rate 20 H 20 H Respiratory Effort Normal Respiratory Depth Normal Respiratory Pattern Normal Blood Pressure 130/51 H 130/51 H Blood Pressure Mean 77 77 Pulse Ox 100 100 Oxygen Delivery Method Room Air Room Air Room Air 04/22/22 23:30 04/23/22 01:18 Temperature Temperature Source Pulse Rate 65 65 Respiratory Rate 18 18 Respiratory Effort Respiratory Depth Respiratory Pattern Blood Pressure 114/65 119/53 L Blood Pressure Mean 81 75 Pulse Ox 99 99 Oxygen Delivery Method Room Air Room Air Positive well nourished and well developed General Appearance ED: well developed HEENT Reports normocephalic and head/scalp atraumatic Eyes PERRL and EOMs intact bilaterally Neck supple Chest Wall inspection of chest normal and palpation of chest normal Resp normal respiratory effort and clear to auscultation bilaterally Cardio regular rate and regular rhythm GI normal to inspection, nondistended, normoactive bowel sounds Palpation: soft Extremity normal to inspection Neuro oriented x3 and no sensory deficits noted Neuro Narrative: No focal neurologic deficits. 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 EKG, chest x-ray, lab work obtained. Lab Data Attestation: I reviewed the patient's lab results. Labs: Laboratory Results - last 24 hr 04/22/22 04/22/22 04/22/22 22:55 22:55 22:55 WBC 5.4 RBC 3.64 L Hgb 11.9 L Hct 36.6 L MCV 100.5 H MCH 32.7 H MCHC 32.5 RDW Std Deviation 55.8 H RDW Coeff of Bharathi 15.2 H Plt Count 263 MPV 10.0 Immature Gran % (Auto) 0.400 Neut % (Auto) 67.9 Lymph % (Auto) 15.6 L Cataño % (Auto) 14.0 H Eos % (Auto) 1.5 Baso % (Auto) 0.6 Absolute Neuts (auto) 3.7 Absolute Lymphs (auto) 0.84 Nucleated RBC % 0 PT 27.6 H INR 2.6 Sodium 136 Potassium 5.6 H Chloride 104 Carbon Dioxide 26.0 Anion Gap 6 BUN 32 H Creatinine 1.07 H Estim Creat Clear Calc 30.06 Est GFR (MDRD) Af Amer 63 Est GFR (MDRD) Non-Af 52 L BUN/Creatinine Ratio 29.9 H Glucose 114 H Calcium 9.6 Total Bilirubin 0.50 Direct Bilirubin 0.15 AST 24 ALT 23 Alkaline Phosphatase 67 Troponin I High Sens 30 B-Natriuretic Peptide Total Protein 7.2 Albumin 3.8 Globulin 3.4 04/22/22 04/23/22 04/23/22 22:55 01:15 01:15 WBC RBC Hgb Hct MCV MCH MCHC RDW Std Deviation RDW Coeff of Bharathi Plt Count MPV Immature Gran % (Auto) Neut % (Auto) Lymph % (Auto) Cataño % (Auto) Eos % (Auto) Baso % (Auto) Absolute Neuts (auto) Absolute Lymphs (auto) Nucleated RBC % PT INR Sodium Potassium 5.3 H Chloride Carbon Dioxide Anion Gap BUN Creatinine Estim Creat Clear Calc Est GFR (MDRD) Af Amer Est GFR (MDRD) Non-Af BUN/Creatinine Ratio Glucose Calcium Total Bilirubin Direct Bilirubin AST ALT Alkaline Phosphatase Troponin I High Sens 33 B-Natriuretic Peptide 54.9 Total Protein Albumin Globulin Radiography Chest X-Ray - ED: 1 View, Read by ED Physician and - (Small right pleural effusion. Cardiomegaly. Chronic changes.) Diagnostic Testing: Clinical Impression(s) from Imaging Studies Chest X-Ray 04/22/22 22:35 IMPRESSION: Small right pleural effusion. Redemonstrated cardiomegaly. Electronically Signed: Harjit Landin MD at 22:53 EST , EKG Initial EKG: Attestation: I personally reviewed and interpreted this EKG as follows: Interpretation: Atrial Fibrillation (Atrial fibrillation at [address] change.) Treatment and Re-Evaluation Narrative: Repeat evaluation patient resting comfortably. She is had no further episodes of chest pain or shortness of breath while here in the emergency room. CBC reveals normal white count. Chemistry studies reveal a potassium of 5.6 with a BUN of 32 and a creatinine 1.07. LFTs are unremarkable. Initial troponin is normal at 30. 2-hour repeat troponin is drawn and is 33. Potassium is repeated at that time is 5.3. BNP is normal at 54. Chest x-ray reveals chronic changes with cardiomegaly and a small right pleural effusion. Test results are discussed with patient and son who is now at bedside. He states that he had been giving her potassium supplements but will hold this for the next week or 2 given that she has had a couple potassium readings that are on the high side. Her cardiac enzymes are negative x2. I do not believe she is a pulmonary embolism as she is on Coumadin and therapeutic. At this time her symptoms have resolved and she feels back to baseline. She be discharged home to continue supportive care and return instructions are given. Discharge Plan Triage Chief Complaint: Shortness of Breath ED Provider: Yari Yuen Dx/Rx/DC Orders Clinical Impression: Dyspnea Instructions: ED Dyspnea Prescriptions: No Action nitroglycerin 0.4 mg tablet, sublingual 0.4 mg SUBLINGUAL Q5M PRN (Reason: Chest Pain) Qty: 25 0RF acetaminophen 500 MG tablet 500 mg PO Q6H PRN PRN (Reason: Mild Pain (-06/14)) 0RF lisinopril 2.5 mg tablet 2.5 mg PO DAILY furosemide 40 mg Tablet 40 mg PO DAILY 30 Days Qty: 30 0RF spironolactone 50 mg Tablet 50 mg PO DAILY 30 Days Qty: 30 0RF ferrous sulfate 325 mg (65 mg iron) tablet 325 mg PO BID Qty: 60 0RF Xifaxan 550 mg tablet 550 mg PO BID Qty: 60 0RF amoxicillin 500 mg capsule 500 mg PO Q6H Qty: 24 0RF warfarin 2 mg tablet 2 mg PO SUWE Rx Instructions: Managed by PCP warfarin 3 mg tablet 3 mg PO MOTUTHFRSA Rx Instructions: Managed by PCP lactulose 20 gram/30 mL solution 20 g PO BID Qty: 1200 11RF Primary Care Provider: Warren Mendoza Referrals: Warren Mendoza MD [Primary Care Provider] - 1 Week Disposition Disposition: Home, Self Care
--- NOTE | 2022-04-22 22:35 | RAD_ITS ---
INDICATION: SOB EXAMINATION/TECHNIQUE: X-RAY - XR Chest 1 View COMPARISON: 11/27/2021 FINDINGS: LINES/DEVICES: None. LUNGS: Small right pleural effusion. No infiltrate. MEDIASTINUM AND CARDIOVASCULAR STRUCTURES: Mildly enlarged heart. Cardiac valve prosthesis. RAD/Chest 1 View (Portable) IMPRESSION: Small right pleural effusion. Redemonstrated cardiomegaly. Electronically Signed: Harjit Landin MD at 22:53 EST ,
[2022-04-22 23:03] LABS: Absolute Lymphocyte Count 0.84 X10^3/uL (0.83-4.51); Absolute Neutrophil Count 3.7 X10^3/uL (2.0-7.7); Basophil# 0.03 X10^3/uL; Basophil% 0.6 % (0-1); Eosinophil# 0.08 X10^3/uL; Eosinophils% 1.5 % (0-5); Hematocrit 36.6 % (37-47); Hemoglobin 11.9 g/dL (12.0-15.0); Lymphocyte # 0.84 X10^3/ul (0.83-4.51); Lymphocyte % 15.6 % (19-41); Mean Corp Hgb Conc 32.5 g/dL (32-36); Mean Corpuscular Hgb 32.7 pg (27.0-32.0); Mean Corpuscular Volume 100.5 fL (81-99); Monocyte# 0.75 X10^3/uL; NRBC Flagged by Analyzer 0 % (0-5); Neutrophil # 3.65 X10^3/uL (2.7-7.7); Neutrophil % 67.9 % (47-70); Platelet Count 263 K/mm3 (150-450); RBC Distribution Width CV 15.2 % (11.6-14.6); RBC Distribution Width SD 55.8 fl (35.1-43.9); Red Blood Count 3.64 M/mm3 (4.2-5.4); White Blood Count 5.4 K/mm3 (4.4-11.0)
[2022-04-22 23:12] LABS: International Normalized Ratio 2.6; Prothrombin Time (Protime)PT. 27.6 SECONDS (11.7-14.9)
[2022-04-22 23:23] LABS: AST(SGOT) 24 U/L (15-37); Alanine Aminotransfer ALT/SGPT 23 U/L (13-56); Albumin, Serum 3.8 g/dL (3.2-5.0); Alkaline Phosphatase 67 U/L (45-117); Anion Gap 6 (5-15); BNP,B-Type NATRIURETIC PEPTIDE 54.9 pg/mL (0-100); BUN 32 mg/dL (7-18); BUN/Creat Ratio 29.9 RATIO (10-20); Bilirubin, Direct 0.15 mg/dL (0.00-0.30); Calcium,Total 9.6 mg/dL (8.5-10.1); Chloride 104 mmol/L (98-107); Creatinine, Serum 1.07 mg/dL (0.55-1.02); EST Glomerular Filtration Rate 52 mL/min (>60); Est Glom Filt Rate - Afr Amer 63 mL/min (>60); Estimated Creatinine Clearance 30.06 ml/min; Globulin 3.4 g/dL (2.2-4.2); Glucose 114 mg/dL (74-106); Potassium 5.6 mmol/L (3.5-5.1); Protein, Total 7.2 g/dL (6.4-8.2); Sodium Level 136 mmol/L (136-145); Troponin-I HS (w/2H Reflex) 30 pg/mL (3.0-54.0)
[2022-04-22 23:30] VITALS: BP 114/65; PULSE 65; RESP 18; O2SAT 99
[2022-04-23 01:00] LABS: Reflex Troponin-HS? (from REC) Y
[2022-04-23 01:18] VITALS: BP 119/53; PULSE 65; RESP 18; O2SAT 99
[2022-04-23 01:42] LABS: Potassium 5.3 mmol/L (3.5-5.1); Troponin-I HS 33 pg/mL (3.0-54.0)
[2022-04-23 01:58] VITALS: BP 122/50; PULSE 60; RESP 18; O2SAT 98
== END 2022-04-23 02:17 | disposition home or self-care (01) ==
PROVIDERS: Emergency Provider Emergency Medicine; PCP Family Medicine; Visit Provider Emergency Medicine
DX: R06.02 Shortness of breath (principal); I11.0 Hypertensive heart disease with heart failure; I50.22 Chronic systolic (congestive) heart failure; E11.9 Type 2 diabetes mellitus without complications; I25.10 Atherosclerotic heart disease of native coronary artery without angina pectoris; E78.5 Hyperlipidemia, unspecified; R07.9 Chest pain, unspecified
CPT/HCPCS: 36415; 71045; 80048; 80076; 83880; 84132; 84484; 85025; 85610; 93005; 99285; A4216

== ENCOUNTER 2022-12-14 18:47 | Observation (INO) | payer MEDICARE, SELFPAY ==
[2022-12-14 18:49] VITALS: BP 157/53; PULSE 65; RESP 16; TEMP 36.5; O2SAT 100
[2022-12-14 18:51] VITALS: BP 124/70; PULSE 84; RESP 16; TEMP 36.4; O2SAT 99; BMI 21.4
--- NOTE | 2022-12-14 19:21 | CT_ITS ---
STUDY: CT BRAIN WITHOUT CONTRAST REASON FOR EXAM: Female, 82 years old. slurred speech RADIATION DOSAGE (If Supplied By Facility): CTDIvol = ( 44.99 ) mGy, DLP = ( 745.49 ) mGycm TECHNIQUE: Transaxial CT imaging of the brain was performed without administration of intravenous contrast material. Individualized dose optimization techniques were used for this CT. COMPARISON: 09/19/2019 819 FINDINGS: Normal soft tissue structures. Normal calvarium. There is moderate cerebral atrophy with widening of the extra-axial spaces and ventricular dilatation. There are areas of decreased attenuation within the white matter tracts of the supratentorial brain, consistent with microvascular disease changes. Encephalomalacia and gliosis of the left parieto-occipital region. Normal basal ganglia and thalami. Normal brainstem. Normal cerebellum. There is no intracranial hemorrhage. There are no findings of an acute ischemic infarction. Normal visualized paranasal sinuses. CT/Brain/Head without Contrast IMPRESSION: 1. No acute intracranial hemorrhage or mass effect. 2. Left AVID EDITOR territory chronic infarction. Electronically Signed: Sheldon Gonzalez MD ([place]) at 20:19 EDT Reading Location ID and State: [facility] / [place] , Service support ,
--- NOTE | 2022-12-14 19:22 | EKG12_ITS ---
Test Reason : DYSRHYTHMIA Blood Pressure : / mmHG Vent. Rate : 055 BPM Atrial Rate : 039 BPM P-R Int : 000 ms QRS Dur : 116 ms QT Int : 460 ms P-R-T Axes : 000 -50 097 degrees QTc Int : 440 ms ATRIAL FIBRILLATION Left axis deviation Minimal voltage criteria for LVH, may be normal variant ( Greg product ) Septal infarct , age undetermined Inferior infarct , age undetermined Abnormal ECG Confirmed by SHEKHAR HIGUERA, MANOLO ([id number]), advertising editor VINCENZO LINDA ([id number]) on 12/23/2022 7:23:26 AM Referred By: Confirmed By:MANOLO CORRIGAN MD
--- NOTE | 2022-12-14 19:32 | EX.ED.DYSGE1 ---
HPI History of Present Illness Chief Complaint: Weakness Narrative Narrative: Patient presents with generalized weakness for the past few days, today the son noticed some slurred speech earlier on which improved on ED arrival. Apparently patient was complaining some numbness around her mouth but does not remember if it was both sides or just 1 side. No focal weakness no sensory deficits, she walks with a walker and has been more unsteady over the past few days. [facility] Medical History Acute on chronic systolic heart failure Anemia Anxiety and depression Ascites Atherosclerotic heart disease of [place] coronary artery without angina pectoris Atrial fibrillation Chronic systolic congestive heart failure Cirrhosis Closed intertrochanteric fracture of right hip Diabetes mellitus Elevated troponin Embolic stroke Epistaxis Essential hypertension Femoral fracture GERD (gastroesophageal reflux disease) History of CVA (cerebrovascular accident) Hyperlipidemia Hypertension senior living (current) use of anticoagulants Malnutrition Pleural effusion Pulmonary hypertension Slurred speech Warfarin-induced coagulopathy Home Medications nitroglycerin 0.4 mg sublingual tablet 0.4 mg sublingual Q5M PRN Chest Pain #25 tabs 08/01/17 [Rx Last Taken Unknown] acetaminophen 500 mg tablet 500 mg PO Q6H PRN PRN Mild Pain (1-3) 10/21/17 [Rx Last Taken Unknown] lisinopril 2.5 mg tablet 2.5 mg PO DAILY blood pressure 02/05/19 [History Last Taken 11/27/21] ferrous sulfate 325 mg (65 mg iron) tablet 325 mg PO BID #60 tabs 11/30/21 [Rx Last Taken Unknown] furosemide 40 mg tablet 40 mg PO DAILY 30 days #30 tabs 11/30/21 [Rx Last Taken Unknown] spironolactone 50 mg tablet 50 mg PO DAILY 30 days #30 tabs 11/30/21 [Rx Last Taken Unknown] warfarin 2 mg tablet 2 mg PO SUWE blood thinner 11/30/21 [History Last Taken Unknown] warfarin 3 mg tablet 3 mg PO MOTUTHFRSA blood thinner 11/30/21 [History Last Taken Unknown] lactulose 20 gram/30 mL oral solution 20 g (30 mL) PO BID #1,200 mL 01/11/22 [Rx Last Taken Unknown] Allergy/AdvReac Type Severity Reaction Status Date / Time cortisone Allergy Unknown Verified 12/14/22 18:49 Family History Father CAD (coronary artery disease) Sudden cardiac , Onset Age: 68 Surgical History H/O mitral valve replacement with mechanical valve History of angioplasty Hx of appendectomy Social History household members: other details: Lives with her son. Smoking Status: Never smoker alcohol intake: never substance use type: does not use caffeine: Yes Type: coffee ROS ROS ED ROS Narrative Past medical history: Reviewed, includes hypertension, CAD, CHF, CVA, atrial fibrillation Medications: Reviewed Social history: Noncontributory Review of systems: All systems negative except as indicated General: No fever generalized weakness as in HPI Eyes: No visual changes ENT: No upper airway congestion, normal voice Neck: No neck pain Cardiovascular: No chest pain Respiratory: No shortness of breath or cough Gastrointestinal: No abdominal pain, nausea vomiting or diarrhea Genitourinary: No dysuria Musculoskeletal: Denies myalgias no difficulty with ambulation Skin: No rash Neurological: as in HPI EXAM Physical Exam Narrative Exam Narrative: Physical exam General: Does not appear in any distress. She appears chronically ill. Head: Normocephalic, Atraumatic Eyes: Conjunctiva not pale ENT: Moist mucous membranes Neck: Supple, Nontender, No lymphadenopathy Cardiovascular: Regular rate, Regular rhythm Respiratory: No distress, CTA bilaterally Abdomen: Soft, Nontender, Nondistended Back: Nontender, Normal Inspection. Negative for: CVA tenderness Extremities: Nontender, No edema Skin: Normal color, No rash Neurological: Alert, Normal Strength, Normal Sensation. Normal speech deficit. NIH stroke scale is 0. Const Vital Signs: 12/14/22 18:49 12/14/22 18:59 Temperature 97.7 F L Temperature Source Temporal Pulse Rate 65 Respiratory Rate 16 Respiratory Effort Normal Respiratory Pattern Normal Blood Pressure 157/53 H Blood Pressure Mean 87 Pulse Ox 100 Oxygen Delivery Method Room Air Discharge Plan Triage Chief Complaint: Weakness ED Provider: Harjit Coelho Dx/Rx/DC Orders Prescriptions: No Action nitroglycerin 0.4 mg tablet, sublingual 0.4 mg SUBLINGUAL Q5M PRN (Reason: Chest Pain) Qty: 25 0RF acetaminophen 500 MG tablet 500 mg PO Q6H PRN PRN (Reason: Mild Pain (-06/14)) 0RF lisinopril 2.5 mg tablet 2.5 mg PO DAILY furosemide 40 mg Tablet 40 mg PO DAILY 30 Days Qty: 30 0RF spironolactone 50 mg Tablet 50 mg PO DAILY 30 Days Qty: 30 0RF ferrous sulfate 325 mg (65 mg iron) tablet 325 mg PO BID Qty: 60 0RF warfarin 2 mg tablet 2 mg PO SUWE Rx Instructions: Managed by PCP warfarin 3 mg tablet 3 mg PO MOTUTHFRSA Rx Instructions: Managed by PCP lactulose 20 gram/30 mL solution 20 g PO BID Qty: 1200 11RF Primary Care Provider: Warren Mendoza Referrals: Warren Mendoza MD [Primary Care Provider] -
[2022-12-14] MEDS: 0.9% Normal Saline (500mL Bag) 500 ML 1000 ML IV (19:45)
[2022-12-14 19:51] VITALS: BP 134/63; PULSE 72; RESP 18; TEMP 36.8; O2SAT 99
[2022-12-14 19:56] LABS: Absolute Lymphocyte Count 0.97 X10^3/uL (0.83-4.51); Absolute Neutrophil Count 4.4 X10^3/uL (2.0-7.7); Basophil# 0.03 X10^3/uL; Basophil% 0.5 % (0-1); Eosinophil# 0.08 X10^3/uL; Eosinophils% 1.3 % (0-5); Hematocrit 37.8 % (37-47); Hemoglobin 12.3 g/dL (12.0-15.0); Lymphocyte # 0.97 X10^3/ul (0.83-4.51); Lymphocyte % 15.3 % (19-41); Mean Corp Hgb Conc 32.5 g/dL (32-36); Mean Corpuscular Hgb 32.4 pg (27.0-32.0); Mean Corpuscular Volume 99.5 fL (81-99); Mean Platelet Vol. 9.4 fl (6.2-12.0); Monocyte# 0.86 X10^3/uL; Monocyte% 13.5 % (0-10); NRBC Flagged by Analyzer 0 % (0-5); Neutrophil # 4.36 X10^3/uL (2.7-7.7); Neutrophil % 68.6 % (47-70); Platelet Count 341 K/mm3 (150-450); RBC Distribution Width CV 14.4 % (11.6-14.6); RBC Distribution Width SD 52.6 fl (35.1-43.9); White Blood Count 6.4 K/mm3 (4.4-11.0)
[2022-12-14 20:09] LABS: Prothrombin Time (Protime)PT. 31.3 SECONDS (11.7-14.9)
[2022-12-14 20:13] LABS: AST(SGOT) 22 U/L (15-37); Alanine Aminotransfer ALT/SGPT 23 U/L (13-56); Albumin, Serum 3.9 g/dL (3.2-5.0); Alkaline Phosphatase 82 U/L (45-117); Anion Gap 6 (5-15); BUN 34 mg/dL (7-18); BUN/Creat Ratio 26.6 RATIO (10-20); Calcium,Total 10.1 mg/dL (8.5-10.1); Chloride 100 mmol/L (98-107); Creatinine, Serum 1.28 mg/dL (0.55-1.02); EST Glomerular Filtration Rate 42 mL/min (>60); Est Glom Filt Rate - Afr Amer 51 mL/min (>60); Estimated Creatinine Clearance 25.88 ml/min; Globulin 3.9 g/dL (2.2-4.2); Glucose 107 mg/dL (74-106); Potassium 5.4 mmol/L (3.5-5.1); Protein, Total 7.8 g/dL (6.4-8.2); Sodium Level 132 mmol/L (136-145)
--- NOTE | 2022-12-14 20:20 | RAD_ITS ---
STUDY: X-RAY CHEST REASON FOR EXAM: Female, 82 years old. weakness TECHNIQUE: AP COMPARISON: 04/22/2022 FINDINGS: Small right pleural thickening stable. No airspace consolidation. No pneumothorax. There is stable moderate cardiac enlargement. Sternal wires and prosthetic cardiac valve. Residual pacer wires. Normal visualized pulmonary arteries. There is atherosclerotic calcification of the aortic arch with tortuosity. No acute bony process. There is no demonstrated abnormality of the visualized soft tissue structures of the upper abdomen. RAD/Chest 1 View (Portable) IMPRESSION: 1. No interval change. 2. Cardiomegaly. Stable right pleural effusion/chronic fibrosis. Electronically Signed: Sheldon Gonzalez MD ([place]) at 20:38 EDT ,
[2022-12-14 20:56] LABS: Bacteria 0 SEEN /hpf (None Seen); Mucous, Urine 0 SEEN /hpf (<or=2+); Red Blood Cells-Urine 0 SEEN /hpf (0-5); Squamous Epithelial Cells - UA 0 SEEN /hpf (5-10); White Blood Cells 0 SEEN /hpf (0-5)
--- NOTE | 2022-12-14 21:09 | PCM.HP.STD ---
HPI - General General Date of Admission: 12/14/22 Date of Service: 12/14/22 Chief Complaint: Weakness, debility. HPI Narrative The patient is an 82 y/o F w/ PMHx: CKD stage III unclear subtype, HFrEF, HTN, HLD, CAD s/p angioplasty, Anxiety and Depression, Hx CVA w/ chronic dysphagia, Diabetes mellitus type II, GERD, PAF, Cirrhosis unclear type following with Dr. Kruse, Valvular heart disease s/p mitral valve mechanical replacement and TV repair on coumadin, Chronic anemia/AOCD/Fe deficiency anemia who presents to the [facility] ED on 12/14/22 with history of generalized weakness for the last several days with decreased oral intake with decreased urine output and upon awakening from nap on day of presentation her speech was mildly slurred but is since resolved and given his concerns prompted eventual ED evaluation. Patient also reported initially to ED physician potentially some perioral paresthesias but from disc with patient and son he clarified and states actually it was mild swelling sensation and not numbness or tingling. He is unable to state her bowel movements patterns. He does report that they recently decreased her lactulose from 20 twice a day to 10 twice a day but unable to give the reason why work-up in the ED included T97.7, heart 65, BP 157/53, respiratory rate 16, 100% on room air, CBC with WBC 6.4, hemoglobin 12.3, MCV 99.5, platelet 341 without marked shift, coags with INR 3.0, CMP with sodium 132, potassium 5.4, BUN/creatinine 34/1.28, glucose 107, hepatic profile unremarkable, chest x-ray with no acute cardiopulmonary findings with cardiomegaly and stable right pleural effusion/chronic fibrotic change, CT of the brain with no acute intracranial mass effect or hemorrhage, evidence of left 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 Given patient history ammonia level added per hospitalist physician and pending currently upon evaluation. [facility] Medical History (Updated 12/14/22 @ 21:[address] 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 Malnutrition Pleural effusion Pulmonary hypertension Warfarin-induced coagulopathy (Unknown) Home Medications nitroglycerin 0.4 mg sublingual tablet 0.4 mg sublingual Q5M PRN Chest Pain #25 tabs 08/01/17 [Rx Last Taken Unknown] acetaminophen 500 mg tablet 500 mg PO Q6H PRN PRN Mild Pain (1-3) 10/21/17 [Rx Last Taken Unknown] lisinopril 2.5 mg tablet 2.5 mg PO DAILY blood pressure 02/05/19 [History Last Taken 11/27/21] furosemide 40 mg tablet 40 mg PO DAILY 30 days #30 tabs 11/30/21 [Rx Last Taken Unknown] spironolactone 50 mg tablet 50 mg PO DAILY 30 days #30 tabs 11/30/21 [Rx Last Taken Unknown] warfarin 3 mg tablet 3 mg PO DAILY blood thinner 11/30/21 [History Last Taken Unknown] ferrous sulfate 325 mg (65 mg iron) tablet 325 mg PO DAILY 12/14/22 [History Last Taken Unknown] lactulose 20 gram/30 mL oral solution 10 g PO .10g 12/14/22 [History Last Taken Unknown] Allergy/AdvReac Type Severity Reaction Status Date / Time cortisone Allergy Unknown Verified 12/14/22 18:49 Family History Father CAD (coronary artery disease) Sudden cardiac , Onset Age: 68 Family History other other (Denies any marked maternal family history including HD, DM, CA.) Surgical History H/O mitral valve replacement with mechanical valve History of angioplasty History of hip surgery Hx of appendectomy Social History household members: other details: Lives with her son. Smoking Status: Never smoker alcohol intake: never substance use type: does not use caffeine: Yes Type: coffee ROS ROS Narrative Admission Review of Systems: CONSTITUTIONAL: No weight loss, fever, chills, + weakness or fatigue. HEENT: Eyes: No visual loss, blurred vision, double vision or yellow sclerae. Ears, Nose, Throat: No hearing loss, sneezing, congestion, runny nose or sore throat. SKIN: No rash or itching, lesions, wounds. CARDIOVASCULAR: No chest pain, chest pressure or chest discomfort, palpitations, edema, orthopnea, syncopal events. RESPIRATORY: No marked shortness of breath, cough, marked sputum, wheezing, hemoptysis. GASTROINTESTINAL: + anorexia, abdominal distention, unclear bowel patterns. No nausea, vomiting, abdominal pain, melena, BRBPR. GENITOURINARY: No dysuria, frequency, urgency or retention. NEUROLOGICAL: + Confusion/weakness/transient slurred speech, Hx prior CVA w/ chronic dysphagia, No headache, dizziness, syncope, paralysis, ataxia, numbness or tingling in the extremities, focal weakness, change in bowel or bladder control, seizure. MUSCULOSKELETAL: + muscle, back pain, joint pain or stiffness. HEMATOLOGIC: + anemia, bleeding or bruising. LYMPHATICS: No enlarged nodes. No history of splenectomy. PSYCHIATRIC: + history of depression or anxiety. ENDOCRINOLOGIC: No reports of sweating, cold or heat intolerance. No polyuria or polydipsia. ALLERGIES: No history of asthma, hives, eczema or rhinitis. Vital Signs Vital Signs Vital Signs: 12/14/22 18:49 12/14/22 18:59 Temperature 97.7 F L Temperature Source Temporal Pulse Rate 65 Respiratory Rate 16 Respiratory Effort Normal Respiratory Pattern Normal Blood Pressure 157/53 H Blood Pressure Mean 87 Pulse Ox 100 Oxygen Delivery Method Room Air Weight Weight: 117 lb 4.575 oz Body Mass Index (BMI) 21.4 Physical Exam Narrative Physical Examination: General: Awake, alert, oriented to self, place and some events, hard of hearing, very soft spoken, cooperative, seated upright in the ED bed in no apparent distress, no evidence of any respiratory distress. Skin: Normal color, normal turgor, no icterus, no cyanosis except occasional staged ecchymoses as well as bilateral lower extremity venous stasis skin changes HEENT: AT/NC, EOMI, PERRLA, mildly dry MM, no carotid bruits, no marked JVD noted. Lungs: Diminished, greater bases, moderate effort, no rhonchi, rales or wheezing. Heart: Currently regular (EKG however no distinct p-waves but regular QRS pattern of note); no gallop, rub audible, + click s/p mechanical valve. Abdomen: Soft, NTTP, moderately distended, very tympanitic, no specific fluid wave, hyperactive BS, unable to discern HSM secondary to distention. Extremities: No cyanosis, no clubbing, no marked peripheral pitting edema especially compared to prior evaluations. Neurological: Patient awake, alert, oriented as noted, cognitive function intact; pupils equally reactive to light and accommodation, cranial nerves grossly normal, moving all 4 extremities, no specific perioral paresthesias reported and clarified that patient felt as though her lip and surrounding it was edematous but on evaluation there is no evidence of this, strength moderately to severely globally decreased. Psychiatric: Affect appears appropriate, laughing during evaluation, no acute evidence of depressive or anxiety feelings. Results Lab / Micro Data 12/14/22 19:50 12/14/22 19:50 Labs: Laboratory Results - last 24 hr 12/14/22 19:50: WBC 6.4, RBC 3.80 L, Hgb 12.3, Hct 37.8, MCV 99.5 H, MCH 32.4 H, MCHC 32.5, RDW Std Deviation 52.6 H, RDW Coeff of Bharathi 14.4, Plt Count 341, MPV 9.4, Immature Gran % (Auto) 0.800, Neut % (Auto) 68.6, Lymph % (Auto) 15.3 L, Jessamine % (Auto) 13.5 H, Eos % (Auto) 1.3, Baso % (Auto) 0.5, Absolute Neuts (auto) 4.4, Absolute Lymphs (auto) 0.97, Nucleated RBC % 0, PT 31.3 H, INR 3.0, Sodium 132 L, Potassium 5.4 H, Chloride 100, Carbon Dioxide 26.0, Anion Gap 6, BUN 34 H, Creatinine 1.28 H, Estim Creat Clear Calc 25.88, Est GFR (MDRD) Af Amer 51 L, Est GFR (MDRD) Non-Af 42 L, BUN/Creatinine Ratio 26.6 H, Glucose 107 H, Calcium 10.1, Total Bilirubin 0.50, AST 22, ALT 23, Alkaline Phosphatase 82, Total Protein 7.8, Albumin 3.9, Globulin 3.9, Albumin/Globulin Ratio 1.[address] 12/14/22 19:21 IMPRESSION: 1. No acute intracranial hemorrhage or mass effect. 2. 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 Electronically Signed: Sheldon Gonzalez MD ([place]) at 20:19 EDT , Chest X-Ray 12/14/22 20:20 IMPRESSION: 1. No interval change. 2. Cardiomegaly. Stable right pleural effusion/chronic fibrosis. Electronically Signed: Sheldon Gonzalez MD ([place]) at 20:38 EDT , Assessment & Plan Assessment/Plan (1) Debility: PLAN: Plan The patient is an 82 y/o F w/ PMHx: CKD stage III unclear subtype, HFrEF, HTN, HLD, CAD s/p angioplasty, Anxiety and Depression, Hx CVA w/ chronic dysphagia, Diabetes mellitus type II, GERD, PAF, Cirrhosis unclear type following with Dr. Kruse, Valvular heart disease s/p mitral valve mechanical replacement and TV repair on coumadin, Chronic anemia/AOCD/Fe deficiency anemia who presents to the [facility] ED on 12/14/22 with history of generalized weakness for the last several days with decreased oral intake with decreased urine output and upon awakening from nap on day of presentation her speech was mildly slurred but is since resolved and given his concerns prompted eventual ED evaluation. #1. Transient slurred speech concerning for possible recurrent CVA w/ notable CVA history (Hx Embolic CVA 2018 with right occipital, left temporal and left thalamic stroke with chronic dysphagia): Will admit to PCU, will obtain MRI Brain, given CrCl will need to obtain MRA Head and will request carotid US, ECHO history without evidence of bubble thus to be thorough will repeat, PT/OT/Speech/Nutrition evaluation per protocol. Given resolution of symptoms and only noted upon awakening with notable underlying heart failure and cirrhotic disease will opt to cautiously continue her hypertension regimen, will maintain on coumadin with INR trending given cirrhotic disease, maintain on asa, not on statin with cirrhotic disease history, AM FLP, fall precautions. Mag, TSH, FLP, HgbA1c requested. Maintain on fall and aspiration precautions. Again as noted ammonia level requested. INR of note therapeutic upon presentation. #2. Cirrhosis, unclear type: Patient following with Dr. Kruse, last visit noted 04/12/2022 with history of 11/09/2021 liver ultrasound with noted coarse hepatic echotexture and nodular surface contour with no ascites at that time, 12/2021 work-up with CBC, TIBC, CMP, AFP without any marked abnormality, ammonia 39, retake count 1.61 and reticulocyte equivalent to 36.6 all mildly elevated with a MELD score at that time 1.3 and repeat MELD scoring 01/04/2022 1. 8 3 with child Mendiola class with low MELD 7-10. Mention in note of continuation of beta-lili for variceal prophylaxis however from current list no beta-lili therapy listed if no possibly because of history of junctional rhythm. Will continue to closely monitor INR on Coumadin, continue lactulose, spironolactone, Xifaxan, Lasix regimen. Given presentation ammonia level has been requested. #3. Valvular heart disease: 11/28/2021 echocardiogram with mild segmental systolic dysfunction, EF 45%, severely enlarged LA and RA, stable appearing mechanical mitral valve apparatus, trivial transvalvular insufficiency of MV, annuloplasty ring noted in the tricuspid position, moderate transvalvular insufficiency of the tricuspid valve, trivial PVI, small pericardial effusion, no evidence of any tamponade, RVSP 55 mmHg consistent with pulmonary hypertension. Patient status post MV mechanical valve replacement as well as TV repair, continue Coumadin with INR trending. #4. HFrEF: ECHO as noted above, EF 45% as noted, we will continue Coumadin with INR trending, Lasix, lisinopril, spironolactone, and on beta-lili therapy number with history of junctional rhythm with recommendation at that time of pacemaker which had been declined as likely etiology, not on statin therapy with underlying cirrhotic disease. Will judiciously hydrate if necessary. #5. Chronic anemia/AOCD/Fe deficiency anemia: Admission hemoglobin 12.3, MCV 99.5 (currently macrocytic however previously was normocytic), baseline hemoglobin more recently -, stable, will continue to trend, continue iron supplementation. #6. Chronic Kidney Disease Stage III, unclear subtype: Admission BUN/Cr 34/1.28, baseline renal function more recently noted 0.9-1.0 although previously in 2021 baseline had been 0.5 but has risen, repeat CMP in AM. #7. CAD: Status post angioplasty per history, will continue Coumadin with INR trending, lisinopril, not on beta-lili therapy nor statin given history as noted #8. Hypertension: Continue home regimen including spironolactone, Lasix, lisinopril and clarifying beta-lili therapy as an last, PRN hydralazine. #9. Hyperlipidemia: Not on regimen, defer given liver history. 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 Diabetes mellitus type II: Noted chart history, not on regimen, hemoglobin A1c requested, in the interim we will maintain on ADA diet, accu checks w/ ISS. #12. Anxiety and depression: Per current list on a regimen, encourage continued outpatient follow-up and evaluation as needed. #13. PAF: Not on any rate or rhythm agent per current list, clarifying to be sure, continue Coumadin with INR trending. #14. GERD: Not on regimen per current list, clarifying, as needed Mylanta. #15. DVT prophylaxis: Continue Coumadin with INR trending. #16. CODE status: Patient HUMA is her son and living will is in place. Discussed CODE status at length including difference between FULL code, DNR-CCA and DNR-CC status. Following discussions about the differences in these status, requested continued DNR-CCA, no intubation, no aggressive interventions. Advanced Care Planning Face to Face Time: 16 minutes. Charges/Coding Visit Charges Inpatient E&M: 85369 Init Hosp L3 Procedures Hospitalists Procedures: 21382 Advncd Care Plan 30 Min
[2022-12-14 21:13] LABS: Color, Urine Yellow (Yellow); Glucose, Dipstick Normal (Normal); Ketone-Dipstick 5 mg/dl (Negative); Leukocyte Esterase-Dipstick Negative /ul (Negative); Nitrite-Dipstick Negative (Negative); Occult Blood-Urine Negative /ul (Negative); Protein-Dipstick Negative (Negative); Specific Gravity, Urine 1.015 (1.002-1.030); Urine Bilirubin Dipstick Negative (Negative); Urine Clarity Clear (Clear); Urine Urobilinogen Normal (Normal)
[2022-12-14 21:44] LABS: Magnesium 2.8 mg/dL (1.6-2.6)
[2022-12-14 21:46] VITALS: BP 143/47; PULSE 65; RESP 16; TEMP 36.8; O2SAT 99
[2022-12-14 22:12] VITALS: BMI 24.7
--- NOTE | 2022-12-14 22:12 | ECHOD_ITS ---
Reason For Study: CVA Procedure This was a 2D Doppler, Color Flow transthoracic echocardiogram. Exam performed in department. Left Ventricle Normal LV size. The estimated ejection fraction is 45 %. Stage 3 diastolic dysfunction. There is mild global hypokinesis of the left ventricle. Right Ventricle Normal RV size. Normal systolic function. Atria There is severe biatrial dilatation. The right atrium is severely enlarged. Mitral Valve Stable appearing mechanical mitral valve apparatus. Tricuspid Valve Normal tricuspid valve. Mild tricuspid valve insufficiency. Pulmonary artery systolic pressure is 38 mmHg. Aortic Valve Trisinus/trileaflet aortic valve. Mild (1+) aortic valve insufficiency. MMode/2D Measurements & Calculations LVIDd: 5.3 cm IVSd: 1.0 cm Ao root diam: 3.0 cm LVIDs: 4.2 cm LVPWd: 1.1 cm RVDd: 3.0 cm FS: 21.4 % LAV(MOD-bp): 242.7 ml LVAd ap4: 27.4 cm2 LVAd ap2: 30.8 cm2 LAV(MOD-bp) Indexed: 159.4 ml/m2 LVLd ap4: 7.1 cm LVLd ap2: 7.6 cm LAV(MOD-sp2): 246.2 ml EDV(MOD-sp4): 86.4 ml EDV(MOD-sp2): 101.5 ml LAV(MOD-sp4): 218.9 ml EDV(sp4-el): 90.0 ml EDV(sp2-el): 104.9 ml LVAs ap4: 18.1 cm2 LVAs ap2: 21.1 cm2 LVLs ap4: 6.4 cm LVLs ap2: 6.9 cm ESV(MOD-sp4): 44.5 ml ESV(MOD-sp2): 52.0 ml ESV(sp4-el): 43.7 ml ESV(sp2-el): 54.7 ml EF(MOD-sp4): 48.6 % EF(MOD-sp2): 48.7 % EF(sp4-el): 51.4 % SV(MOD-sp4): 42.0 ml SV(MOD-sp2): 49.4 ml SV(sp4-el): 46.2 ml LA A4 area: 50.8 cm2 LA dimension(2D): 6.2 cm RA A4 area: 35.0 cm2 Time Measurements MV dec time: 0.24 sec Doppler Measurements & Calculations MV E max armen: 180.1 cm/sec Lat Peak E' Armen: 7.3 cm/sec Med Peak E' Armen: 4.7 cm/sec MV A max armen: 27.6 cm/sec E/E' lat: 24.8 E/E' med: 38.7 MV E/A: 6.5 MV V2 max: 190.4 cm/sec Ao V2 max: 256.5 cm/sec AI max armen: 397.2 cm/sec MV max P.5 mmHg Ao max P.4 mmHg AI max P.2 mmHg MV V2 mean: 63.4 cm/sec Ao V2 mean: 164.7 cm/sec AI dec slope: 248.2 cm/sec2 MV mean P.6 mmHg Ao mean P.8 mmHg AI P1/2t: 468.6 msec MV V2 VTI: 42.0 cm Ao V2 VTI: 57.9 cm AV (velocity ratio): 0.55 LV V1 max: 124.4 cm/sec PA V2 max: 167.1 cm/sec TR max armen: 287.9 cm/sec LV V1 max P.2 mmHg PA V2 mean: 97.4 cm/sec TR max P.2 mmHg LV V1 mean P.9 mmHg LV V1 mean: 78.1 cm/sec LV V1 VTI: 31.9 cm ECHO/Echo Complete Interpretation Summary Normal LV size. The estimated ejection fraction is 45 %. Stage 3 diastolic dysfunction. There is severe biatrial dilatation. The right atrium is severely enlarged. Ordering Physician: Genesis Casas Referring Physician: Jeremy Mendoza Performed By: Lauren Brumfield RDCS, RVT
--- NOTE | 2022-12-14 22:12 | CDU_ITS ---
Reason For Study: CVA Rt. Velocities/BP Lt. Velocities/BP Prox CCA 70.5/11.0 cm/sec. Prox CCA 91.6/13.0 cm/sec. Mid CCA 82.8/11.0 cm/sec. Mid CCA 89.1/13.0 cm/sec. Dist CCA 63.9/10.0 cm/sec. Dist CCA 74.4/13.0 cm/sec. Prox ICA 91.6/13.0 cm/sec. Prox ICA 62.0/11.9 cm/sec. Mid ICA 103.9/14.2 cm/sec. Mid ICA 84.2/23.7 cm/sec. Dist ICA 121.6/21.2 cm/sec. Dist ICA 94.6/23.6 cm/sec. Rt. ICA/CCA = 1.5. Lt. ICA/CCA = 1.1. Prox ECA 86.7/3.2 cm/sec. Prox ECA 75.2/7.2 cm/sec. Rt. Vert. 40.2/6.2 cm/sec. Lt. Vert. 59.0/9.2 cm/sec. Right Extracranial There is homogeneous, smooth atherosclerotic plaque noted in the right common carotid artery. There is heterogeneous, irregular atherosclerotic plaque noted in the right internal carotid artery. There is heterogeneous, irregular atherosclerotic plaque noted in the right external carotid artery. Antegrade flow is noted in the right vertebral artery. Left Extracranial There is homogeneous, smooth atherosclerotic plaque noted in the left common carotid artery. There is heterogeneous, irregular atherosclerotic plaque noted in the left internal carotid artery. There is intimal thickening but no significant atherosclerotic plaque noted in the left external carotid artery. Antegrade flow is noted in the left vertebral artery. Procedure Carotid Duplex [id number]. This is a Carotid Duplex examination using B-mode, color flow and specral Doppler. The exam was diagnostic. Exam performed in department. VL/Carotid Duplex Ultrasound Interpretation Summary Mild (<50%) stenosis right extracranial internal carotid. Mild (<50%) stenosis left extracranial internal carotid. Patent and antegrade vertebrals bilaterally. Ordering Physician: Genesis Casas Referring Physician: Jeremy Mendoza Performed By: Scott Blancas RVT
[2022-12-14 22:22] VITALS: BP 137/52; PULSE 65; RESP 18; TEMP 36.8; O2SAT 99
[2022-12-14] MEDS: Lactulose 20 GM/30 ML UDC PO (23:44)
[2022-12-15 00:15] LABS: Bedside Glucose 113 mg/dL (74-106)
[2022-12-15 02:00] VITALS: BP 132/50; PULSE 64; RESP 18; TEMP 36.6; O2SAT 99
[2022-12-15 04:17] VITALS: BMI 24.7
[2022-12-15 06:00] VITALS: BP 139/50; PULSE 60; RESP 18; TEMP 36.6; O2SAT 97; BMI 21.7
[2022-12-15 07:07] LABS: Bedside Glucose 87 mg/dL (74-106)
[2022-12-15 07:22] LABS: Absolute Lymphocyte Count 0.94 X10^3/uL (0.83-4.51); Absolute Neutrophil Count 3.9 X10^3/uL (2.0-7.7); Basophil# 0.04 X10^3/uL; Basophil% 0.7 % (0-1); Eosinophil# 0.07 X10^3/uL; Eosinophils% 1.2 % (0-5); Hematocrit 36.2 % (37-47); Hemoglobin 11.4 g/dL (12.0-15.0); Lymphocyte # 0.94 X10^3/ul (0.83-4.51); Mean Corp Hgb Conc 31.5 g/dL (32-36); Mean Corpuscular Hgb 31.9 pg (27.0-32.0); Mean Corpuscular Volume 101.4 fL (81-99); Mean Platelet Vol. 9.2 fl (6.2-12.0); Monocyte# 0.82 X10^3/uL; NRBC Flagged by Analyzer 0 % (0-5); Neutrophil # 3.94 X10^3/uL (2.7-7.7); Neutrophil % 67.1 % (47-70); Platelet Count 339 K/mm3 (150-450); RBC Distribution Width CV 14.3 % (11.6-14.6); RBC Distribution Width SD 53.3 fl (35.1-43.9); Red Blood Count 3.57 M/mm3 (4.2-5.4); White Blood Count 5.9 K/mm3 (4.4-11.0)
--- NOTE | 2022-12-15 07:30 | PN.HOSP_ITS ---
Reason for Visit Reason for Visit: Diagnoses Other malaise (12/14/22) Objective Data Objective Data Vital Signs: Vital Signs Temp Pulse Resp BP Pulse Ox O2 Del Method 97.8 F 60 18 139/50 H 97 Room Air 12/15/22 06:00 12/15/22 06:00 12/15/22 06:00 12/15/22 06:00 12/15/22 06:00 12/15/22 06:00 Oxygen Delivery Method Room Air Weight: 117 lb 15.157 oz Body Mass Index (BMI) 21.7 Intake & Output: Intake and Output for Last 24 Hours 12/13/22 12/14/22 12/15/22 23:59 23:59 23:59 Intake Total 500 / 500 Output Total 0 / 0 Balance 500 / 500 Lab / Micro Data 12/15/22 06:45 12/15/22 06:45 Labs: Laboratory Results - last 24 hr 12/14/22 19:50: WBC 6.4, RBC 3.80 L, Hgb 12.3, Hct 37.8, MCV 99.5 H, MCH 32.4 H, MCHC 32.5, RDW Std Deviation 52.6 H, RDW Coeff of Bharathi 14.4, Plt Count 341, MPV 9.4, Immature Gran % (Auto) 0.800, Neut % (Auto) 68.6, Lymph % (Auto) 15.3 L, Griggs % (Auto) 13.5 H, Eos % (Auto) 1.3, Baso % (Auto) 0.5, Absolute Neuts (auto) 4.4, Absolute Lymphs (auto) 0.97, Nucleated RBC % 0, PT 31.3 H, INR 3.0, Sodium 132 L, Potassium 5.4 H, Chloride 100, Carbon Dioxide 26.0, Anion Gap 6, BUN 34 H , Creatinine 1.28 H, Estim Creat Clear Calc 25.88, Est GFR (MDRD) Af Amer 51 L, Est GFR (MDRD) Non-Af 42 L, BUN/Creatinine Ratio 26.6 H, Glucose 107 H, Calcium 10.1, Magnesium 2.8 H, Total Bilirubin 0.50, AST 22, ALT 23, Alkaline Phosphatase 82, Total Protein 7.8, Albumin 3.9, Globulin 3.9, Albumin/Globulin Ratio 1.0 12/14/22 20:50: Urine Color Yellow, Urine Clarity Clear, Urine pH 5.0, Ur Specific [place] 1.015, Urine Protein Negative, Urine Glucose (UA) Normal, Urine Ketones 5 H, Urine Occult Blood Negative, Urine Nitrite Negative, Urine Bilirubin Negative, Urine Urobilinogen Normal, Ur Leukocyte Esterase Negative, Urine RBC 0 SEEN, Urine WBC 0 SEEN, Ur Squamous Epith Cells 0 SEEN, Urine Bacteria 0 SEEN, Urine Mucus 0 SEEN 12/14/22 21:20: Ammonia 15.0 12/14/22 23:46: POC Glucose 113 H 12/15/22 06:45: WBC 5.9, RBC 3.57 L, Hgb 11.4 L, Hct 36.2 L, MCV 101.4 H, MCH 31.9, MCHC 31.5 L, RDW Std Deviation 53.3 H, RDW Coeff of Bharathi 14.3, Plt Count 339, MPV 9.2, Immature Gran % (Auto) 1.000 H, Neut % (Auto) 67.1, Lymph % (Auto) 16.0 L, Griggs % (Auto) 14.0 H, Eos % (Auto) 1.2, Baso % (Auto) 0.7, Absolute Neuts (auto) 3.9, Absolute Lymphs (auto) 0.94, Nucleated RBC % 0 12/15/22 06:47: POC Glucose 87 Radiography Diagnostic Testing: Radiology Impression Brain CT 12/14/22 19:21 IMPRESSION: 1. No acute intracranial hemorrhage or mass effect. 2. Left [employer] territory chronic infarction. Electronically Signed: Sheldon Gonzalez MD ([place]) at 20:19 EDT , Chest X-Ray 12/14/22 20:20 IMPRESSION: 1. No interval change. 2. Cardiomegaly. Stable right pleural effusion/chronic fibrosis. Electronically Signed: Sheldon Gonzalez MD ([place]) at 20:38 EDT , Physical Exam Narrative Seen and examined. History taken from the patient and the son near the bedside. Patient has cirrhosis with hepatic encephalopathy therefore son was the main history auto roller Patient has ascites, abdominal swelling but no significant leg swelling. Ad mitted with the numbness around mouth and slurred speech. Patient further said she had some problem in finding words yesterday. Physical exam General: Awake, Oriented x3, Cooperative HEENT: Atraumatic, PERRLA, EOMI, Normocephalic Oral: Oral mucosa dry. No Gingival or Mucosal Lesions/ Ulcerations Neck: Supple, No JVD, Negative Carotid Bruits Lungs: Air entry diminished in bilateral lung bases. No crepitation/rhonchi Cardiovascular: Regular rate, Regular Rhythm, Normal S1, Normal S2, systolic murmur right second ICS and LLSB, cardiac apex Abdomen: Bowel Sounds Present, Soft, Non Tender, abdominal swelling, mainly ascites. : No renal angle tenderness. No suprapubic tenderness. Extremities: No edema, Capillary Refill Less than 3 Seconds Skin: No rashes, No breakdown Musculoskeletal: No Tenderness to Palpation of Joints or Extremities. Significant severe muscle atrophy of calf and thigh muscles. Sarcopenia. ROM restricted at knees and hip joints Neurological: Cranial nerves II-XII grossly intact, DTR 2+/4. Soft voice. No dysphagia, dysarthria, language deficit or NIH charting. No acute focal neurological deficit. Psych/Mental Status: Flat affect, speaks slowly, amnesia. Assessment & Plan Assessment/Plan (1) Debility: PLAN: Plan The patient is an 82 y/o F admitted with slurred speech, numbness around mouth along with generalized weakness for past few days. No focal weakness or sensory deficit. She usually walks with a walker and has been more unsteady over the pa st few days #1. 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 PT, OT, speech therapy/swallow evaluation and management, nursing NIH stroke scale, BP and glucose monitoring and control as per stroke protocol. 12/15: NIH started 2. Magnesium 2.8. A1c 5.2. TSH normal. LDL normal, fasting profile in normal limit. MRI and MRA head done but not reported yet. Carotid Doppler and 2D echo is ordered. #2. Cirrhosis, unclear type decompensated with hepatic encephalopathy and ascites: Patient following with Dr. Kruse, last visit noted 04/12/2022. Liver ultrasound on11/09/2021 reported coarse hepatic echotexture and nodular surface contour with no ascites at that time. Patient on lactulose for goal of 3 BMs per day.Patient has a low MELD 7-10.Currently she is not liver transplant because of low MELD score but on beta-lili for variceal prophylaxis and diuretic furosemide 40 mg spironolactone 50 mg daily. Sodium 134, potassium 4.7 therefore we will continue the same dose. #3. Valvular heart disease: 11/28/2021 echocardiogram with mild segmental systolic dysfunction, EF 45%, severely enlarged LA and RA, stable appearing mechanical mitral valve apparatus, trivial transvalvular insufficiency of MV, a nnuloplasty ring noted in the tricuspid position, moderate transvalvular insufficiency of the tricuspid valve, trivial PVI, small pericardial effusion, no evidence of any tamponade, RVSP 55 mmHg consistent with pulmonary hypertension. 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 Continue warfarin but monitor INR daily. Goal INR about 2.5-3.5. #4. Chronic HFrEF: ECHO as noted above, EF 45% as noted, we will continue Coumadin with INR trending, Lasix, lisinopril, spironolactone, and on beta- lili therapy number with history of junctional rhythm with recommendation at that time of pacemaker which had been declined as likely etiology, not on statin therapy with underlying cirrhotic disease. #5. Chronic anemia/AOCD/Fe deficiency anemia: Admission hemoglobin 12.3, MCV 99.5 (currently macrocytic however previously was normocytic), baseline hemoglobin more recently 11-12, stable, will continue to trend, continue iron supplementation. 12/25: H&H 9.4-36.2. Platelet count 7 39,000. WBC count normal. #6. Chronic Kidney Disease Stage III, unclear subtype: Admission BUN/Cr 34/1.28, baseline renal function more recently noted 0.9-1.0 12/15: BUN/creatinine on baseline, creatinine 0.89 sodium 27. #7. CAD: Status post angioplasty per history, will continue Coumadin with INR trending, lisinopril, not on beta-lili therapy nor statin given history as noted #8. Hypertension: Continue home regimen including spironolactone, Lasix, lisinopril and clarifying beta-lili therapy as an last, PRN hydralazine. #9. Hyperlipidemia: Not on regimen, defer given liver history. 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 Diabetes mellitus type II: 12/15: A1c 5.2. Maintain on ADA diet, accu checks w/ ISS. Avoid hypoglycemia. #12. Anxiety and depression: Per current list on a regimen, encourage continued outpatient follow-up and evaluation as needed. #13. PAF: Not on any rate or rhythm agent per current list, clarifying to be sure, continue Coumadin with INR trending. #14. GERD: Not on regimen per current list, clarifying, as needed Mylanta. #15. DVT prophylaxis: Continue Coumadin with INR trending. #16. CODE status: Patient HUMA is her son and living will is in place. Discussed CODE status at length including difference between FULL code, DNR-CCA and DNR-CC status. Following discussions about the differences in these status, requested continued DNR-CCA, no intubation, no aggressive interventions. Total time of the visit including total time spent in counseling or coordination of care, (more than 50% of the total time, spent in obtaining medical information from nurses and other ancillary care providers,explaining to the patient about labs, imaging, diagnosis and management of active complex medical conditions including strokelike symptoms, cirrhosis decompensated with hepatic encephalopathy, valvular heart disease status post MVR on warfarin) , review of labs and imaging is 40 minutes. Charges/Coding Visit Charges Inpatient E&M: 22199 Subs Hosp L3
[2022-12-15 08:11] LABS: ALB/GLOB Ratio 0.9 RATIO (0.9-2.4); AST(SGOT) 20 U/L (15-37); Alanine Aminotransfer ALT/SGPT 21 U/L (13-56); Albumin, Serum 3.4 g/dL (3.2-5.0); Alkaline Phosphatase 76 U/L (45-117); Anion Gap 6 (5-15); BUN 27 mg/dL (7-18); BUN/Creat Ratio 30.4 RATIO (10-20); Calcium,Total 9.2 mg/dL (8.5-10.1); Chloride 106 mmol/L (98-107); Cholesterol 157 mg/dL (200); Creatinine, Serum 0.89 mg/dL (0.55-1.02); EST Glomerular Filtration Rate 64 mL/min (>60); Est Glom Filt Rate - Afr Amer 78 mL/min (>60); Estimated Creatinine Clearance 37.22 ml/min; Globulin 3.7 g/dL (2.2-4.2); Glucose 88 mg/dL (74-106); High Density Lipoprotein 42 mg/dL; Potassium 4.7 mmol/L (3.5-5.1); Protein, Total 7.1 g/dL (6.4-8.2); Sodium Level 134 mmol/L (136-145); Thyroid Stim Hormone (TSH) 1.79 uIU/mL (0.358-3.74); Triglycerides 110 mg/dL; Very Low Density Lipoprotein 22 mg/dL (5-40)
[2022-12-15 08:16] VITALS: O2SAT 98
[2022-12-15 08:24] LABS: International Normalized Ratio 3.1; Prothrombin Time (Protime)PT. 32.2 SECONDS (11.7-14.9)
[2022-12-15 09:03] LABS: Phosphorus 2.9 mg/dL (2.5-4.9)
[2022-12-15 09:38] LABS: Hemoglobin A1c 5.2 % (3.8-5.6)
[2022-12-15 09:43] VITALS: BP 133/46; PULSE 55; RESP 16; TEMP 37; O2SAT 99
[2022-12-15] MEDS: Furosemide 40 MG Tablet PO (09:46)
[2022-12-15] MEDS: Aspirin 81 MG TAB.CHEW PO (09:46)
[2022-12-15] MEDS: Ferrous Sulfate 325 MG Tablet PO ×2 (09:46→16:53)
[2022-12-15] MEDS: Spironolactone 50 MG Tablet PO (09:46)
[2022-12-15] MEDS: Lactulose 20 GM/30 ML UDC PO ×2 (09:46→21:11)
[2022-12-15] MEDS: Lisinopril 2.5 MG Tablet PO (09:47)
--- NOTE | 2022-12-15 11:30 | MRI_ITS ---
STUDY: MRI BRAIN WITHOUT CONTRAST REASON FOR EXAM: Female, 82 years old. CVA, SLURRED SPEECH,WEAKNESS, HX PREV CVA TECHNIQUE: Standardized multiplanar fat and water weighted pulse sequences were obtained. COMPARISON: 10/19/2017, CT 12/14/2022 FINDINGS: Normal size of the ventricles and extra-axial spaces for the patient''s age. There are multiple white matter hyperintensities, distributed throughout the deep white matter tracts of the cerebral hemispheres, consistent with moderate chronic white matter ischemic changes. No change in the encephalomalacia and gliosis in the left occipital lobe consistent with chronic left posterior cerebral artery infarct. There is no evidence for recent intracranial ischemia or other cause of cytotoxic edema on diffusion weighted imaging (DWI). Normal T2* images of the brain without demonstrated susceptibility artifact. There is no demonstrated hemosiderin stain. Normal bilateral basal ganglia. Normal thalami. There is no extra-axial fluid accumulation. Normal flow voids within the major intracranial circulation suggesting patency by spin echo criteria. Normal sella turcica, pituitary gland, infundibular stalk, optic chiasm and hypothalamus. Normal tectal plate and pineal gland. Normal midbrain, pablo and medulla. Normal cerebellum. Normal basal cisterns. Normal bilateral temporal bones. Normal bilateral internal auditory canals. No demonstrated orbital abnormality, within the constraints of a routine brain study. Normal visualized paranasal sinuses. Normal calvarium and skull base. Normal visualized soft tissue structures. Normal visualized upper cervical spine. MRI/Brain without Contrast IMPRESSION: Involutional changes of the brain, as described above. No acute infarct. Electronically Signed: Omar Quijano MD at 14:15 EDT ,
--- NOTE | 2022-12-15 11:30 | MRI_ITS ---
STUDY: MRA OF THE HEAD WITHOUT CONTRAST REASON FOR EXAM: Female, 82 years old. CVA, SLURRED SPEECH,WEAKNESS, HX PREV CVA TECHNIQUE: 3-D [id number] (TOF) imaging was performed with MIPs. The study was performed unenhanced. COMPARISON: None. FINDINGS: Normal bilateral petrous carotid arteries. Normal right cavernous carotid artery with a normal supraclinoid bifurcation. Normal left cavernous carotid artery with a normal supraclinoid bifurcation. There is hypoplastic development of the right A1 segment of the anterior cerebral arteries with an atretic but intact artery. Normal left A1 segments of the anterior cerebral artery. Normal intact anterior communicating artery (ACOM). Normal bilateral A2 segments of the anterior cerebral arteries. Normal right M1 and M2 segments of the middle cerebral arteries, with a normal M1 bifurcation. Normal left M1 and M2 segments of the middle cerebral arteries, with a normal M1 bifurcation. There is a persistent origin of the right posterior cerebral artery with absence of the P1 segment of the right posterior cerebral artery. Normal left posterior communicating artery (PCOM). Nonvisualization of the distal right vertebral artery which may be occluded or of a aplastic or severely hypoplastic. Normal basilar artery with a normal basilar bifurcation. The visualized bilateral superior cerebellar (SCA) arteries are normal. Normal bilateral P1, P2 and visualized P3 segments of the posterior cerebral arteries. There is no demonstrated aneurysm of the rosebud of [place]. There is no major vessel occlusion or hemodynamically significant stenosis. There is no demonstrated abnormality of the visualized brain. MRI/MRA Head ONLY without Contrast IMPRESSION: Normal MRA of the head Possibly occluded right vertebral artery. Electronically Signed: Omar Quijano MD at 14:17 EDT ,
[2022-12-15 11:51] LABS: Bedside Glucose 151 mg/dL (74-106)
[2022-12-15 13:14] LABS: Bedside Glucose 105 mg/dL (74-106)
[2022-12-15 15:26] VITALS: BP 111/42; PULSE 54; RESP 16; TEMP 36.7; O2SAT 95
[2022-12-15 16:40] LABS: Bedside Glucose 105 mg/dL (74-106)
[2022-12-15] MEDS: Jantoven 2 MG Tablet PO (16:53)
[2022-12-15 17:00] VITALS: BMI 21.7
[2022-12-15] MEDS: Ensure Plus High Protein 120 ML LIQUID PO ×2 (17:39→21:06)
[2022-12-15 21:04] VITALS: BP 126/50; PULSE 53; RESP 18; TEMP 36.8; O2SAT 98
[2022-12-15] MEDS: rifAXIMin 550 MG Tablet PO (21:13)
[2022-12-15 22:32] LABS: Bedside Glucose 98 mg/dL (74-106)
[2022-12-16 01:56] VITALS: BMI 21.7
[2022-12-16 03:38] VITALS: BP 136/58; PULSE 54; RESP 18; TEMP 36.7; O2SAT 98
[2022-12-16 04:16] VITALS: BMI 21.7
[2022-12-16 06:30] LABS: Absolute Lymphocyte Count 0.93 X10^3/uL (0.83-4.51); Absolute Neutrophil Count 5.4 X10^3/uL (2.0-7.7); Basophil# 0.04 X10^3/uL; Basophil% 0.5 % (0-1); Eosinophils% 1.3 % (0-5); Hematocrit 36.3 % (37-47); Hemoglobin 12.2 g/dL (12.0-15.0); Lymphocyte # 0.93 X10^3/ul (0.83-4.51); Lymphocyte % 12.5 % (19-41); Mean Corp Hgb Conc 33.6 g/dL (32-36); Mean Corpuscular Hgb 33.4 pg (27.0-32.0); Mean Corpuscular Volume 99.5 fL (81-99); Mean Platelet Vol. 9.3 fl (6.2-12.0); Monocyte# 0.95 X10^3/uL; Monocyte% 12.8 % (0-10); NRBC Flagged by Analyzer 0 % (0-5); Neutrophil % 72.5 % (47-70); Platelet Count 348 K/mm3 (150-450); RBC Distribution Width CV 14.5 % (11.6-14.6); RBC Distribution Width SD 53.1 fl (35.1-43.9); Red Blood Count 3.65 M/mm3 (4.2-5.4); White Blood Count 7.5 K/mm3 (4.4-11.0)
[2022-12-16 06:44] LABS: International Normalized Ratio 2.8; Prothrombin Time (Protime)PT. 30.2 SECONDS (11.7-14.9)
[2022-12-16] MEDS: Acetaminophen 325 MG Tablet 650 MG PO (06:51)
[2022-12-16 07:08] LABS: ALB/GLOB Ratio 0.9 RATIO (0.9-2.4); AST(SGOT) 23 U/L (15-37); Alanine Aminotransfer ALT/SGPT 23 U/L (13-56); Albumin, Serum 3.7 g/dL (3.2-5.0); Alkaline Phosphatase 78 U/L (45-117); Anion Gap 6 (5-15); BUN 31 mg/dL (7-18); BUN/Creat Ratio 30.4 RATIO (10-20); Calcium,Total 9.6 mg/dL (8.5-10.1); Chloride 103 mmol/L (98-107); Creatinine, Serum 1.02 mg/dL (0.55-1.02); EST Glomerular Filtration Rate 55 mL/min (>60); Est Glom Filt Rate - Afr Amer 66 mL/min (>60); Estimated Creatinine Clearance 32.47 ml/min; Globulin 3.9 g/dL (2.2-4.2); Glucose 112 mg/dL (74-106); Potassium 4.7 mmol/L (3.5-5.1); Protein, Total 7.6 g/dL (6.4-8.2); Sodium Level 133 mmol/L (136-145)
[2022-12-16 07:34] LABS: Bedside Glucose 118 mg/dL (74-106)
--- NOTE | 2022-12-16 09:33 | CASEMGMT ---
Social work Pt has indicated does not have LW/POA and declined further information. CLAUDE Rodriguez
[2022-12-16 10:00] VITALS: BP 138/48; PULSE 57; RESP 16; TEMP 36.7; O2SAT 99
[2022-12-16] MEDS: Lactulose 20 GM/30 ML UDC PO (10:04)
[2022-12-16] MEDS: Ferrous Sulfate 325 MG Tablet PO (10:04)
[2022-12-16] MEDS: Aspirin 81 MG TAB.CHEW PO (10:04)
[2022-12-16] MEDS: Furosemide 40 MG Tablet PO (10:04)
[2022-12-16] MEDS: Spironolactone 50 MG Tablet PO (10:04)
[2022-12-16] MEDS: Lisinopril 2.5 MG Tablet PO (10:05)
[2022-12-16 11:48] LABS: Bedside Glucose 119 mg/dL (74-106)
--- NOTE | 2022-12-16 12:15 | CASEMGMT ---
Social Work SW met with patient and patient's son and introduced self and role as [facility] SW. Patient seated in hospital chair and agreeable to speak to SW with patient's son present. SW educated patient on the correlation between stroke and depression and assisted the patient in completing the PHQ9. Patient reports feeling depressed, struggling to sleep at night but increased sleeping during the day, little energy and poor appetite. Patient's son reports noticing a difference in patient's speech over the past few days, explaining it has been slower. Patient's son further states he has noticed depressive symptoms more recently with patient, explaining the patient says she feels like a bother to patient's son when the patient asks for help. Based on the information provided, patient PHQ9 score is a 9 which indicates mild depression. SW provided emotional support and inquired about engagement in MH services. Patient reports no current services and declined information regarding services. SW inquired if resource could be left with patient's son; patient agreeable. SW reviewed crisis contact as well as a list of community mental health agencies. Patient's son receptive towards information and has no other questions. SW remains available if additional needs arise. Genesis Lima SCRIPT WORKER, [place]
[2022-12-16] MEDS: rifAXIMin 550 MG Tablet PO (12:24)
[2022-12-16] MEDS: Ensure Plus High Protein 120 ML LIQUID PO (12:25)
--- NOTE | 2022-12-16 13:37 | DCINST_ITS ---
Discharge Instructions Diet Discharge Diet: Low fat / Low cholesterol Activity Discharge Activity: Return to Normal Activity Dressing / Incision Call your doctor if you observe: Fever of 101 or Higher, Shortness of breath, Dizziness, Fainting spells, Swelling in the ankles, Chest pain and Increased palpitations (irregular heartbeat) Follow Up Care Test Results: Test results from this visit will be discussed in further detail at your follow- up appointment, if applicable. Discharge Plan Admission Admit Date/Time: 12/14/22 21:18 Attending Provider: Idris Uriostegui Primary Care Provider: Warren Mendoza Consulting Providers: Genesis Casas; Franklyn Ford Instructions Additional Instructions / Restrictions: You likely had a TIA or a mini stroke. You are already on Coumadin and so we will hold off on aspirin for the time being however we will start you on Lipitor. Given your history of cirrhosis would recommend close outpatient monitoring for your liver function. Discharge Orders/Prescriptions Prescriptions: New atorvastatin [Lipitor] 40 mg tablet 40 mg PO QHS 30 Days Qty: 30 0RF Continued nitroglycerin 0.4 mg tablet, sublingual 0.4 mg SUBLINGUAL Q5M PRN (Reason: Chest Pain) Qty: 25 0RF acetaminophen 500 MG tablet 500 mg PO Q6H PRN PRN (Reason: Mild Pain (1-310)) 0RF lisinopril 2.5 mg tablet 2.5 mg PO DAILY furosemide 40 mg Tablet 40 mg PO DAILY 30 Days Qty: 30 0RF spironolactone 50 mg Tablet 50 mg PO DAILY 30 Days Qty: 30 0RF warfarin 3 mg tablet 3 mg PO DAILY Rx Instructions: Managed by PCP ferrous sulfate 325 mg (65 mg iron) tablet 325 mg PO DAILY lactulose 20 gram/30 mL solution 10 g PO .10g Referrals / Follow Up: Warren Mendoza MD [Primary Care Provider] - Within 1 Week Disposition Disposition (needs filled in before D/C Order can be placed): Home, Self Care
--- NOTE | 2022-12-16 14:16 | PHA.DC_ITS ---
Pharmacy [facility] has performed discharge medication reconciliation and counseling for this patient. The patient's discharge medication list was reviewed for discrepancies and discrepancies were resolved. The patient was counseled on the following discharge medications and changes in medications for homegoing were reviewed. The Reason for Use, instructions for use, and potential side effects were reviewed for all new medications. The patient's questions regarding all of their medications were answered. 1. Atorvastatin 40 mg PO daily. The patient was able to verbally demonstrate an understanding of their discharge medications. Medications at Discharge Home Medications nitroglycerin 0.4 mg sublingual tablet 0.4 mg sublingual Q5M PRN Chest Pain #25 tabs 08/01/17 acetaminophen 500 mg tablet 500 mg PO Q6H PRN PRN Mild Pain (-06/14) 10/21/17 lisinopril 2.5 mg tablet 2.5 mg PO DAILY blood pressure 02/05/19 furosemide 40 mg tablet 40 mg PO DAILY 30 days #30 tabs 11/30/21 spironolactone 50 mg tablet 50 mg PO DAILY 30 days #30 tabs 11/30/21 warfarin 3 mg tablet 3 mg PO DAILY blood thinner 11/30/21 ferrous sulfate 325 mg (65 mg iron) tablet 325 mg PO DAILY 12/14/22 lactulose 20 gram/30 mL oral solution 10 g PO .10g 12/14/22 atorvastatin 40 mg tablet (Lipitor) 40 mg PO QHS 30 days #30 tabs 12/16/22
--- NOTE | 2022-12-16 15:00 | CASEMGMT ---
Patient has order to discharge. LENORE VAZQUEZ in to patient's room to discuss needs at discharge and progress with therapy. Patient and son states they have caregivers at home and decline HHC as it did not work in the past. LENORE VAZQUEZ informed patient and son that should they reconsider HHC to follow up with PCP. Patient and son voiced understand. Patient and son had no further questions or concerns.
--- NOTE | 2022-12-16 16:02 | DS.PCM_ITS ---
Providers Date of Admission: 12/14/22 Primary Care Physician: Dr. Warren Mendoza MD Reason For Visit: ? TIA/CVA Diagnosis Discharge Diagnosis (1) Debility: Status: Acute Code(s): R53.81 - Other malaise Medications at Discharge Home Medications nitroglycerin 0.4 mg sublingual tablet 0.4 mg sublingual Q5M PRN Chest Pain #25 tabs 08/01/17 acetaminophen 500 mg tablet 500 mg PO Q6H PRN PRN Mild Pain (-06/14) 10/21/17 lisinopril 2.5 mg tablet 2.5 mg PO DAILY blood pressure 02/05/19 furosemide 40 mg tablet 40 mg PO DAILY 30 days #30 tabs 11/30/21 spironolactone 50 mg tablet 50 mg PO DAILY 30 days #30 tabs 11/30/21 warfarin 3 mg tablet 3 mg PO DAILY blood thinner 11/30/21 ferrous sulfate 325 mg (65 mg iron) tablet 325 mg PO DAILY 12/14/22 lactulose 20 gram/30 mL oral solution 10 g PO .10g 12/14/22 atorvastatin 40 mg tablet (Lipitor) 40 mg PO QHS 30 days #30 tabs 12/16/22 Hospital Course Operations None Procedures 2-D Echocardiogram Summary of Care Provided Minutes Spent on Discharge: 37 Hospital Course: Per HPI: The patient is an 82 y/o F w/ PMHx: CKD stage III unclear subtype, HFrEF, HTN, HLD, CAD s/p angioplasty, Anxiety and Depression, Hx CVA w/ chronic dysphagia, Diabetes mellitus type II, GERD, PAF, Cirrhosis unclear type following with Dr. Kruse, Valvular heart disease s/p mitral valve mechanical replacement and TV repair on coumadin, Chronic anemia/AOCD/Fe deficiency anemia who presents to the [facility] ED on 12/14/22 with history of generalized weakness for the last several days with decreased oral intake with decreased urine output and upon awakening from nap on day of presentation her speech was mildly slurred but is since resolved and given his concerns prompted eventual ED evaluation. Patient also reported initially to ED physician potentially some perioral paresthesias but from disc with patient and son he clarified and states actually it was mild swelling sensation and not numbness or tingling. He is unable to state her bowel movements patterns. He does report that they recently decreased her lactulose from 20 twice a day to 10 twice a day but unable to give the reason why work-up in the ED included T97.7, heart 65, BP 157/53, respiratory rate 16, 100% on room air, CBC with WBC 6.4, hemoglobin 12.3, MCV 99.5, platelet 341 without marked shift, coags with INR 3.0, CMP with sodium 132, potassium 5.4, BUN/creatinine 34/1.28, glucose 107, hepatic profile unremarkable, chest x- ray with no acute cardiopulmonary findings with cardiomegaly and stable right pleural effusion/chronic fibrotic change, CT of the brain with no acute intracranial mass effect or hemorrhage, evidence of left [employer] territory chronic infarction, urinalysis pending upon requested evaluation of patient. Given patient history ammonia level added per hospitalist physician and pending currently upon evaluation. Hospital course: 1. Transient slurred speech possible TIA versus possible hepatic encephalopathy from cirrhosis?82-year-old female presented to the hospital from home after she was found to have slurred speech upon waking. She is not a tPA candidate. MRI was negative for stroke and carotid Dopplers were negative and echo demonstrated of reduced EF to 45% with stage III diastolic dysfunction. She is already on diuretics for this issue as well as ascites from either her cirrhosis or her diastolic heart failure or combination of both. Her symptomatology has resolved and it is still unclear whether or not this was a primary liver issue versus a TIA. She is already on Coumadin for paroxysmal A-fib which we will continue. Given her age and her fall risk we will hold on aspirin however will start her on Lipitor. I do recommend that she follow-up with her PCP in 3 to 5 days to monitor her liver function given her reduced function affect that she is on lactulose at baseline. I discussed with her and her son the plan for possible discharge today and they expressed understanding of the risk and benefits of going home and would like to go home today. He does have caregivers to come to the house and we will also have home health with home PT assist on the outpatient setting 2. Coronary artery disease status post stent, atrial fibrillation, hypertension, hyperlipidemia, chronic combined systolic and diastolic CHF, type 2 diabetes, anxiety, depression, GERD, iron deficiency anemia are all chronic medical conditions which complicate her care. Her home medications were continued where appropriate Physical Exam Narrative General: Alert, Oriented x3, Cooperative, No apparent distress HEENT: Atraumatic, PERRLA, EOMI, Normocephalic Oral: Moist Mucosa Neck: Supple, No JVD Lungs: Diminished, Normal air movement, No rhonchi, No wheeze, No rales Cardiovascular: Regular rate, Regular Rhythm, Normal S1, Normal S2, No murmurs Abdomen: Soft, Non Tender, Non-Distended, No Hepato-splenomegaly Extremities: No edema, Capillary Refill Less than 3 Seconds Skin: No rashes, No breakdown Musculoskeletal: No Tenderness to Palpation of Joints or Extremities Neurological: Cranial nerves II-XII grossly intact, Motor Exam 5/5 strength throughout, Sensory exam intact to light touch and pain Psych/Mental Status: Flat affect Weight / BMI Weight Weight: 119 lb 0.794 oz Body Mass Index (BMI) 21.7 ABG / Lab / Microbiology Data 12/16/22 05:25 12/16/22 05:25 Laboratory: Laboratory Results - last 24 hr 12/15/22 16:21: POC Glucose 105 12/15/22 21:08: POC Glucose 98 12/16/22 05:25: WBC 7.5, RBC 3.65 L, Hgb 12.2, Hct 36.3 L, MCV 99.5 H, MCH 33.4 H, MCHC 33.6 D, RDW Std Deviation 53.1 H, RDW Coeff of Bharathi 14.5, Plt Count 348, MPV 9.3, Immature Gran % (Auto) 0.400, Neut % (Auto) 72.5 H, Lymph % (Auto) 12.5 L, Hodgeman % (Auto) 12.8 H, Eos % (Auto) 1.3, Baso % (Auto) 0.5, Absolute Neuts (auto) 5.4, Absolute Lymphs (auto) 0.93, Nucleated RBC % 0, PT 30.2 H, INR 2.8, Sodium 133 L, Potassium 4.7, Chloride 103, Carbon Dioxide 24.0, Anion Gap 6, BUN 31 H, Creatinine 1.02, Estim Creat Clear Calc 32.47, Est GFR (MDRD) Af Amer 66, Est GFR (MDRD) Non-Af 55 L, BUN/Creatinine Ratio 30.4 H, Glucose 112 H, Calcium 9.6, Total Bilirubin 0.60, AST 23, ALT 23, Alkaline Phosphatase 78, Total Protein 7.6, Albumin 3.7, Globulin 3.9, Albumin/Globulin Ratio 0.9 12/16/22 06:55: POC Glucose 118 H 12/16/22 11:29: POC Glucose 119 H Radiography Diagnostic Testing: Radiology Impression Carotid Duplex 12/14/22 22:12 Interpretation Summary Mild (<50%) stenosis right extracranial internal carotid. Mild (<50%) stenosis left extracranial internal carotid. Patent and antegrade vertebrals bilaterally. Ordering Physician: Genesis Casas Referring Physician: Jeremy Mendoza Performed By: Scott Blancas, DORAT Echocardiogram 12/14/22 22:12 Interpretation Summary Normal LV size. The estimated ejection fraction is 45 %. Stage 3 diastolic dysfunction. There is severe biatrial dilatation. The right atrium is severely enlarged. Ordering Physician: Genesis Casas Referring Physician: Jeremy Mendoza Performed By: Lauren Brumfield RDCS, RVT D/C Instructions Discharge Diet: Low fat / Low cholesterol Call your doctor if you observe: Fever of 101 or Higher, Shortness of breath, Dizziness, Fainting spells, Swelling in the ankles, Chest pain and Increased palpitations (irregular heartbeat) Meaningful Use Info Meaningful Use Diagnoses (Choose all that apply): None applicable Discharge Plan Admission Admit Date/Time: 12/14/22 21:18 Attending Provider: Idris Uriostegui Primary Care Provider: Warren Mendoza Consulting Providers: Genesis Casas; Franklyn Ford Instructions Additional Instructions / Restrictions: You likely had a TIA or a mini stroke. You are already on Coumadin and so we will hold off on aspirin for the time being however we will start you on Lipitor. Given your history of cirrhosis would recommend close outpatient monitoring for your liver function. Discharge Orders/Prescriptions Prescriptions: New atorvastatin [Lipitor] 40 mg tablet 40 mg PO QHS 30 Days Qty: 30 0RF Continued nitroglycerin 0.4 mg tablet, sublingual 0.4 mg SUBLINGUAL Q5M PRN (Reason: Chest Pain) Qty: 25 0RF acetaminophen 500 MG tablet 500 mg PO Q6H PRN PRN (Reason: Mild Pain (-06/14)) 0RF lisinopril 2.5 mg tablet 2.5 mg PO DAILY furosemide 40 mg Tablet 40 mg PO DAILY 30 Days Qty: 30 0RF spironolactone 50 mg Tablet 50 mg PO DAILY 30 Days Qty: 30 0RF warfarin 3 mg tablet 3 mg PO DAILY Rx Instructions: Managed by PCP ferrous sulfate 325 mg (65 mg iron) tablet 325 mg PO DAILY lactulose 20 gram/30 mL solution 10 g PO .10g Referrals / Follow Up: Warren Mendoza MD [Primary Care Provider] - Within 1 Week Disposition Disposition (needs filled in before D/C Order can be placed): Home, Self Care Charges/Coding Visit Charges Inpatient E&M: 10241 Disch Hosp >30min
== END 2022-12-16 13:42 | disposition home or self-care (01) ==
LOC: ED 21:20 → PCU 21:29
PROVIDERS: Internal Medicine; Admitting Provider Family Medicine; Emergency Provider Emergency Medicine; PCP Family Medicine; Visit Provider Family Medicine
DX: I13.0 Hypertensive heart and chronic kidney disease with heart failure and stage 1 through stage 4 chronic kidney disease, or unspecified chronic kidney disease (principal); K74.60 Unspecified cirrhosis of liver; I50.42 Chronic combined systolic (congestive) and diastolic (congestive) heart failure; E11.22 Type 2 diabetes mellitus with diabetic chronic kidney disease; I48.0 Paroxysmal atrial fibrillation; N18.30 Chronic kidney disease, stage 3 unspecified; F41.9 Anxiety disorder, unspecified; I25.10 Atherosclerotic heart disease of native coronary artery without angina pectoris; R18.8 Other ascites; R53.1 Weakness; R53.81 Other malaise; R47.81 Slurred speech; K21.9 Gastro-esophageal reflux disease without esophagitis; E78.5 Hyperlipidemia, unspecified; D63.8 Anemia in other chronic diseases classified elsewhere; D50.9 Iron deficiency anemia, unspecified; Z79.01 Long term (current) use of anticoagulants; Z79.899 Other long term (current) drug therapy; Z95.2 Presence of prosthetic heart valve; F32.A Depression, unspecified
CPT/HCPCS: 36415; 70450; 70544; 70551; 71045; 80053; 80061; 81001; 82140; 82962; 83036; 83735; 84100; 84443; 85025; 85610; 92523; 92610; 93005; 93306; 93880; 96360; 97162; 97165; 97802; 99221; 99285; J7040; P9612; A4216; G0378

== ENCOUNTER → 2023-04-18 | Outpatient (CLI) | payer MEDICARE, SELFPAY ==
[2023-04-18 12:26] LABS: BNP,B-Type NATRIURETIC PEPTIDE 53.1 pg/mL (0-100)
[2023-04-18 12:29] LABS: D-Dimer Quantitative (DVT/PE) 0.83 FEU/ug/m (0.27-0.49)
[2023-04-18 13:04] LABS: International Normalized Ratio 2.6; Prothrombin Time (Protime)PT. 28.3 SECONDS (11.7-14.9)
== END | disposition home or self-care (01) ==
LOC: LABSPEC 11:57
PROVIDERS: PCP Family Medicine; Referring Provider Family Medicine; Visit Provider Family Medicine
DX: R06.00 Dyspnea, unspecified (principal); I48.91 Unspecified atrial fibrillation
CPT/HCPCS: 83880; 85379; 85610

== ENCOUNTER → 2023-11-11 | Outpatient (CLI) | payer MEDICARE, SELFPAY ==
[2023-11-11 14:18] LABS: Anion Gap 6 (5-15); BUN 21 mg/dL (7-18); BUN/Creat Ratio 33.3 RATIO (10-20); Calcium,Total 8.1 mg/dL (8.5-10.1); Chloride 106 mmol/L (98-107); Creatinine, Serum 0.63 mg/dL (0.55-1.02); EST Glomerular Filtration Rate 95 mL/min (>60); Est Glom Filt Rate - Afr Amer 115 mL/min (>60); Glucose 122 mg/dL (74-106); Sodium Level 142 mmol/L (136-145)
== END | disposition home or self-care (01) ==
PROVIDERS: PCP Family Medicine; Referring Provider Family Medicine Hospice and Palliative Medicine; Visit Provider Family Medicine Hospice and Palliative Medicine
DX: I50.9 Heart failure, unspecified (principal)
CPT/HCPCS: 80048